=== PATIENT | female | born 1955 | race Caucasian/White ===

== ENCOUNTER → 2019-12-08 13:08 | Outpatient (BNVA) | payer MEDICAID, SELFPAY | PROVIDERS: PCP Family Medicine; Visit Provider Family Medicine | DX: Z95.2 Presence of prosthetic heart valve (principal); Z51.81 Encounter for therapeutic drug level monitoring; Z79.01 Long term (current) use of anticoagulants | CPT/HCPCS: 85610; 99211 ==

== ENCOUNTER → 2020-01-05 12:58 | Outpatient (BNVA) | payer MEDICAID, SELFPAY | PROVIDERS: PCP Family Medicine; Visit Provider Internal Medicine | DX: Z95.2 Presence of prosthetic heart valve (principal); Z51.81 Encounter for therapeutic drug level monitoring; Z79.01 Long term (current) use of anticoagulants | CPT/HCPCS: 85610; 99211 ==

== ENCOUNTER → 2020-01-19 13:00 | Outpatient (BNVA) | payer MEDICAID, SELFPAY | PROVIDERS: PCP Family Medicine; Visit Provider Internal Medicine | DX: Z95.2 Presence of prosthetic heart valve (principal); Z51.81 Encounter for therapeutic drug level monitoring; Z79.01 Long term (current) use of anticoagulants | CPT/HCPCS: 85610; 99211 ==

== ENCOUNTER → 2020-02-02 13:31 | Outpatient (BNVA) | payer MEDICAID, SELFPAY | PROVIDERS: PCP Family Medicine; Visit Provider Internal Medicine | DX: Z95.2 Presence of prosthetic heart valve (principal); Z51.81 Encounter for therapeutic drug level monitoring; Z79.01 Long term (current) use of anticoagulants | CPT/HCPCS: 85610; 99211 ==

== ENCOUNTER → 2020-02-09 13:10 | Outpatient (BNVA) | payer MEDICAID, SELFPAY | PROVIDERS: PCP Family Medicine; Visit Provider Internal Medicine | DX: Z95.2 Presence of prosthetic heart valve (principal); Z51.81 Encounter for therapeutic drug level monitoring; Z79.01 Long term (current) use of anticoagulants | CPT/HCPCS: 85610; 99211 ==

== ENCOUNTER → 2020-02-22 13:04 | Outpatient (BNVA) | payer MEDICAID, SELFPAY | PROVIDERS: PCP Family Medicine; Visit Provider Internal Medicine | DX: Z95.2 Presence of prosthetic heart valve (principal); Z51.81 Encounter for therapeutic drug level monitoring; Z79.01 Long term (current) use of anticoagulants | CPT/HCPCS: 85610; 99211 ==

== ENCOUNTER → 2020-02-29 13:06 | Outpatient (BNVA) | payer MEDICAID, SELFPAY | PROVIDERS: PCP Family Medicine; Visit Provider Internal Medicine | DX: Z95.2 Presence of prosthetic heart valve (principal); Z51.81 Encounter for therapeutic drug level monitoring; Z79.01 Long term (current) use of anticoagulants | CPT/HCPCS: 85610; 99211 ==

== ENCOUNTER → 2020-03-08 13:51 | Outpatient (BNVA) | payer MEDICAID, SELFPAY | PROVIDERS: PCP Family Medicine; Visit Provider Internal Medicine | DX: Z95.2 Presence of prosthetic heart valve (principal); Z79.01 Long term (current) use of anticoagulants; Z51.81 Encounter for therapeutic drug level monitoring | CPT/HCPCS: 85610; 99211 ==

== ENCOUNTER 2020-03-13 16:37 | Outpatient (REF) | payer MEDICAID, SELFPAY ==
--- NOTE | 2020-03-13 16:43 | MM_ITS ---
EXAMINATION: MM SCREENING DIGITAL BREAST TOMOSYNTHESIS, BILATERAL CLINICAL INFORMATION: Screening. Asymptomatic. The lifetime risk of breast cancer based on the Tyrer-Cuzick Model is 6%. COMPARISON: Mammography: 03/08/2019, 01/03/2018 TECHNIQUE: Digital breast tomosynthesis is performed in both the craniocaudal and mediolateral oblique views along with computer-aided detection (CAD). Synthesized 2D images are generated from the tomosynthesis. Additional left exaggerated CC view is provided. FINDINGS: The breasts are heterogeneously dense, which may obscure small masses (ACR BI-RADS breast composition Category c). There are no significant masses, abnormal calcifications, or other abnormalities. Oval nodule anterior 8:00 left breast is moderately decreased in size since 2018. Again, there are scattered coarse calcifications in each breast. The axilla and skin contours are unremarkable. MM/MM tomosynthesis screening BI IMPRESSION: There are no significant changes from prior study. ASSESSMENT: BI-RADS 2: Benign RECOMMENDATION: Routine annual mammography screening. This patient's information was entered into a reminder system with a target due date for their next mammogram.
== END 2020-03-13 16:38 | disposition home or self-care (01) ==
LOC: HO.MAMMO 16:37
PROVIDERS: PCP Family Medicine; Visit Provider Family Medicine
DX: Z12.31 Encounter for screening mammogram for malignant neoplasm of breast (principal)
CPT/HCPCS: 77063; 77067

== ENCOUNTER → 2020-03-22 13:06 | Outpatient (BNVA) | payer MEDICAID, SELFPAY | PROVIDERS: PCP Family Medicine; Visit Provider Internal Medicine | DX: Z95.2 Presence of prosthetic heart valve (principal); Z51.81 Encounter for therapeutic drug level monitoring; Z79.01 Long term (current) use of anticoagulants | CPT/HCPCS: 85610; 99211 ==

== ENCOUNTER → 2020-04-05 12:54 | Outpatient (BNVA) | payer MEDICAID, SELFPAY | PROVIDERS: PCP Family Medicine; Visit Provider Internal Medicine | DX: Z95.2 Presence of prosthetic heart valve (principal); Z51.81 Encounter for therapeutic drug level monitoring; Z79.01 Long term (current) use of anticoagulants | CPT/HCPCS: 85610; 99211 ==

== ENCOUNTER → 2020-04-12 13:02 | Outpatient (BNVA) | payer MEDICAID, SELFPAY | PROVIDERS: PCP Family Medicine; Visit Provider Internal Medicine | DX: Z95.2 Presence of prosthetic heart valve (principal); Z51.81 Encounter for therapeutic drug level monitoring; Z79.01 Long term (current) use of anticoagulants | CPT/HCPCS: 85610; 99211 ==

== ENCOUNTER → 2020-04-26 13:13 | Outpatient (BNVA) | payer MEDICAID, SELFPAY | PROVIDERS: PCP Family Medicine; Visit Provider Internal Medicine | DX: Z95.2 Presence of prosthetic heart valve (principal); Z51.81 Encounter for therapeutic drug level monitoring; Z79.01 Long term (current) use of anticoagulants | CPT/HCPCS: 85610; 99211 ==

== ENCOUNTER → 2020-05-03 14:18 | Outpatient (BNVA) | payer MEDICAID, SELFPAY | PROVIDERS: PCP Family Medicine; Visit Provider Internal Medicine | DX: Z95.2 Presence of prosthetic heart valve (principal); Z79.01 Long term (current) use of anticoagulants; Z51.81 Encounter for therapeutic drug level monitoring | CPT/HCPCS: 85610; 99211 ==

== ENCOUNTER → 2020-05-24 13:01 | Outpatient (BNVA) | payer MEDICAID, SELFPAY | PROVIDERS: PCP Family Medicine; Visit Provider Internal Medicine | DX: Z95.2 Presence of prosthetic heart valve (principal); Z51.81 Encounter for therapeutic drug level monitoring; Z79.01 Long term (current) use of anticoagulants | CPT/HCPCS: 85610; 99211 ==

== ENCOUNTER → 2020-06-14 13:06 | Outpatient (BNVA) | payer MEDICAID, SELFPAY | PROVIDERS: PCP Family Medicine; Visit Provider Internal Medicine | DX: Z95.2 Presence of prosthetic heart valve (principal); Z79.01 Long term (current) use of anticoagulants; Z51.81 Encounter for therapeutic drug level monitoring | CPT/HCPCS: 85610; 99211 ==

== ENCOUNTER → 2020-06-21 13:02 | Outpatient (BNVA) | payer MEDICAID, SELFPAY | PROVIDERS: PCP Family Medicine; Visit Provider Internal Medicine | DX: Z95.2 Presence of prosthetic heart valve (principal); Z79.01 Long term (current) use of anticoagulants; Z51.81 Encounter for therapeutic drug level monitoring | CPT/HCPCS: 85610; 99211 ==

== ENCOUNTER → 2020-07-12 13:07 | Outpatient (BNVA) | payer MEDICAID, SELFPAY | PROVIDERS: PCP Family Medicine; Visit Provider Internal Medicine | DX: Z95.2 Presence of prosthetic heart valve (principal); Z51.81 Encounter for therapeutic drug level monitoring; Z79.01 Long term (current) use of anticoagulants | CPT/HCPCS: 85610; 99211 ==

== ENCOUNTER → 2020-08-09 13:06 | Outpatient (BNVA) | payer MEDICAID, SELFPAY | PROVIDERS: PCP Family Medicine; Visit Provider Internal Medicine | DX: Z95.2 Presence of prosthetic heart valve (principal); Z51.81 Encounter for therapeutic drug level monitoring; Z79.01 Long term (current) use of anticoagulants | CPT/HCPCS: 85610; 99211 ==

== ENCOUNTER → 2020-08-27 13:24 | Outpatient (BNV) | payer MEDICAID, MEDICARE, OTHER, SELFPAY | PROVIDERS: PCP Family Medicine; Visit Provider Internal Medicine Medical Oncology | DX: N60.92 Unspecified benign mammary dysplasia of left breast (principal) | CPT/HCPCS: 99213 ==

== ENCOUNTER → 2020-09-06 13:03 | Outpatient (BNVA) | payer MEDICAID, SELFPAY | PROVIDERS: PCP Family Medicine; Visit Provider Internal Medicine | DX: Z95.2 Presence of prosthetic heart valve (principal); Z51.81 Encounter for therapeutic drug level monitoring; Z79.01 Long term (current) use of anticoagulants | CPT/HCPCS: 85610; 99211 ==

== ENCOUNTER → 2020-09-13 13:01 | Outpatient (BNVA) | payer MEDICAID, SELFPAY | PROVIDERS: PCP Family Medicine; Visit Provider Internal Medicine | DX: Z95.2 Presence of prosthetic heart valve (principal); Z51.81 Encounter for therapeutic drug level monitoring; Z79.01 Long term (current) use of anticoagulants | CPT/HCPCS: 85610; 99211 ==

== ENCOUNTER → 2020-09-20 13:05 | Outpatient (BNVA) | payer MEDICAID, SELFPAY | PROVIDERS: PCP Family Medicine; Visit Provider Internal Medicine | DX: Z95.2 Presence of prosthetic heart valve (principal); Z51.81 Encounter for therapeutic drug level monitoring; Z79.01 Long term (current) use of anticoagulants | CPT/HCPCS: 85610; 99211 ==

== ENCOUNTER → 2020-10-11 12:55 | Outpatient (BNVA) | payer MEDICAID, SELFPAY | PROVIDERS: PCP Family Medicine; Visit Provider Internal Medicine | DX: Z95.2 Presence of prosthetic heart valve (principal); Z79.01 Long term (current) use of anticoagulants; Z51.81 Encounter for therapeutic drug level monitoring | CPT/HCPCS: 85610; 99211 ==

== ENCOUNTER → 2020-10-25 12:58 | Outpatient (BNVA) | payer MEDICAID, SELFPAY | PROVIDERS: PCP Family Medicine; Visit Provider Internal Medicine | DX: Z95.2 Presence of prosthetic heart valve (principal); Z51.81 Encounter for therapeutic drug level monitoring; Z79.01 Long term (current) use of anticoagulants | CPT/HCPCS: 85610; 99211 ==

== ENCOUNTER → 2020-11-08 13:02 | Outpatient (BNVA) | payer MEDICAID, SELFPAY | PROVIDERS: PCP Family Medicine; Visit Provider Internal Medicine | DX: Z95.2 Presence of prosthetic heart valve (principal); Z51.81 Encounter for therapeutic drug level monitoring; Z79.01 Long term (current) use of anticoagulants | CPT/HCPCS: 85610; 99211 ==

== ENCOUNTER → 2020-11-29 13:04 | Outpatient (BNVA) | payer MEDICARE, MEDICAID, SELFPAY | PROVIDERS: PCP Family Medicine; Visit Provider Internal Medicine | DX: Z95.2 Presence of prosthetic heart valve (principal); Z51.81 Encounter for therapeutic drug level monitoring; Z79.01 Long term (current) use of anticoagulants | CPT/HCPCS: 85610; 99211 ==

== ENCOUNTER → 2020-12-20 13:01 | Outpatient (BNVA) | payer MEDICARE, MEDICAID, SELFPAY | PROVIDERS: PCP Family Medicine; Visit Provider Internal Medicine | DX: Z95.2 Presence of prosthetic heart valve (principal); Z51.81 Encounter for therapeutic drug level monitoring; Z79.01 Long term (current) use of anticoagulants | CPT/HCPCS: 85610; 99211 ==

== ENCOUNTER → 2021-01-10 13:06 | Outpatient (BNVA) | payer MEDICARE, MEDICAID, SELFPAY | PROVIDERS: PCP Family Medicine; Visit Provider Internal Medicine | DX: Z95.2 Presence of prosthetic heart valve (principal); Z51.81 Encounter for therapeutic drug level monitoring; Z79.01 Long term (current) use of anticoagulants | CPT/HCPCS: 85610 ==

== ENCOUNTER → 2021-01-30 13:28 | Outpatient (BNVA) | payer MEDICARE, MEDICAID, SELFPAY | PROVIDERS: PCP Family Medicine; Visit Provider Internal Medicine | DX: Z95.2 Presence of prosthetic heart valve (principal); Z51.81 Encounter for therapeutic drug level monitoring; Z79.01 Long term (current) use of anticoagulants | CPT/HCPCS: 85610; 99211 ==

== ENCOUNTER → 2021-02-14 13:02 | Outpatient (BNVA) | payer MEDICARE, MEDICAID, SELFPAY | PROVIDERS: PCP Family Medicine; Visit Provider Internal Medicine | DX: Z95.2 Presence of prosthetic heart valve (principal); Z51.81 Encounter for therapeutic drug level monitoring; Z79.01 Long term (current) use of anticoagulants | CPT/HCPCS: 85610; 99211 ==

== ENCOUNTER → 2021-03-07 12:49 | Outpatient (BNVA) | payer MEDICARE, MEDICAID, SELFPAY | PROVIDERS: PCP Family Medicine; Visit Provider Internal Medicine | DX: Z95.2 Presence of prosthetic heart valve (principal); Z51.81 Encounter for therapeutic drug level monitoring; Z79.01 Long term (current) use of anticoagulants | CPT/HCPCS: 85610; 99211 ==

== ENCOUNTER → 2021-03-14 13:02 | Outpatient (BNVA) | payer MEDICARE, MEDICAID, SELFPAY | PROVIDERS: PCP Family Medicine; Visit Provider Internal Medicine | DX: Z95.2 Presence of prosthetic heart valve (principal); Z51.81 Encounter for therapeutic drug level monitoring; Z79.01 Long term (current) use of anticoagulants | CPT/HCPCS: 85610; 99211 ==

== ENCOUNTER → 2021-03-19 14:53 | Outpatient (BNVA) | payer MEDICARE, MEDICAID, SELFPAY | PROVIDERS: PCP Family Medicine; Visit Provider Internal Medicine | DX: Z95.2 Presence of prosthetic heart valve (principal); Z51.81 Encounter for therapeutic drug level monitoring; Z79.01 Long term (current) use of anticoagulants | CPT/HCPCS: 85610; 99211 ==

== ENCOUNTER → 2021-03-28 13:02 | Outpatient (BNVA) | payer MEDICARE, MEDICAID, SELFPAY | PROVIDERS: PCP Family Medicine; Visit Provider Internal Medicine | DX: Z95.2 Presence of prosthetic heart valve (principal); Z51.81 Encounter for therapeutic drug level monitoring; Z79.01 Long term (current) use of anticoagulants | CPT/HCPCS: 85610; 99211 ==

== ENCOUNTER 2021-04-11 14:02 | Outpatient (REF) | payer MEDICARE, MEDICAID, SELFPAY ==
--- NOTE | ~2021-04-11 | MM_ITS ---
EXAMINATION: MM SCREENING DIGITAL BREAST TOMOSYNTHESIS, BILATERAL CLINICAL INFORMATION: Screening. Asymptomatic. The lifetime risk of breast cancer based on the Tyrer-Cuzick Model is 6%. COMPARISON: Mammography: 03/13/2020, 03/08/2019, 01/03/2018 TECHNIQUE: Digital breast tomosynthesis is performed in both the craniocaudal and mediolateral oblique views along with computer-aided detection (CAD). Synthesized 2D images are generated from the tomosynthesis. Additional left MLO view is provided. FINDINGS: There are scattered areas of fibroglandular density (ACR BI-RADS breast composition Category b). Parenchymal pattern is similar to prior studies. There is no developing density, interval significant mass, or interval architectural abnormality. Again, there are grouped coarse calcifications central right breast and lesser on the left. Surgical clips or wire central anterior left breast again noted. The axilla are unremarkable. MM/MM tomosynthesis screening BI IMPRESSION: No mammographic evidence of malignancy. ASSESSMENT: BI-RADS 2: Benign RECOMMENDATION: Routine annual mammography screening. This patient's information was entered into a reminder system with a target due date for their next mammogram.
== END 2021-04-11 14:03 | disposition home or self-care (01) ==
LOC: HO.MAMMO 14:02
PROVIDERS: Visit Provider Family Medicine
DX: Z12.31 Encounter for screening mammogram for malignant neoplasm of breast (principal); Z95.2 Presence of prosthetic heart valve; Z51.81 Encounter for therapeutic drug level monitoring; Z79.01 Long term (current) use of anticoagulants
CPT/HCPCS: 77063; 77067; 85610; 99211

== ENCOUNTER → 2021-05-02 13:03 | Outpatient (BNVA) | payer MEDICARE, MEDICAID, SELFPAY | PROVIDERS: PCP Family Medicine; Visit Provider Internal Medicine | DX: Z95.2 Presence of prosthetic heart valve (principal); Z51.81 Encounter for therapeutic drug level monitoring; Z79.01 Long term (current) use of anticoagulants | CPT/HCPCS: 85610; 99211 ==

== ENCOUNTER → 2021-05-23 13:02 | Outpatient (BNVA) | payer MEDICARE, MEDICAID, SELFPAY | PROVIDERS: PCP Family Medicine; Visit Provider Internal Medicine | DX: Z95.2 Presence of prosthetic heart valve (principal); Z51.81 Encounter for therapeutic drug level monitoring; Z79.01 Long term (current) use of anticoagulants | CPT/HCPCS: 85610; 99211 ==

== ENCOUNTER → 2021-06-18 13:32 | Outpatient (BNVA) | payer MEDICARE, MEDICAID, SELFPAY | PROVIDERS: PCP Family Medicine; Visit Provider Internal Medicine | DX: Z95.2 Presence of prosthetic heart valve (principal); Z79.01 Long term (current) use of anticoagulants; Z51.81 Encounter for therapeutic drug level monitoring | CPT/HCPCS: 85610; 99211 ==

== ENCOUNTER → 2021-07-18 13:08 | Outpatient (BNVA) | payer MEDICARE, MEDICAID, SELFPAY | PROVIDERS: PCP Family Medicine; Visit Provider Internal Medicine | DX: Z95.2 Presence of prosthetic heart valve (principal); Z79.01 Long term (current) use of anticoagulants; Z51.81 Encounter for therapeutic drug level monitoring | CPT/HCPCS: 85610; 99211 ==

== ENCOUNTER → 2021-08-15 12:59 | Outpatient (BNVA) | payer MEDICARE, MEDICAID, SELFPAY | PROVIDERS: PCP Family Medicine; Visit Provider Internal Medicine | DX: Z95.2 Presence of prosthetic heart valve (principal); Z79.01 Long term (current) use of anticoagulants; Z51.81 Encounter for therapeutic drug level monitoring | CPT/HCPCS: 85610; 99211 ==

== ENCOUNTER → 2021-09-12 13:03 | Outpatient (BNVA) | payer MEDICARE, MEDICAID, SELFPAY | PROVIDERS: PCP Family Medicine; Visit Provider Internal Medicine | DX: Z95.2 Presence of prosthetic heart valve (principal); Z79.01 Long term (current) use of anticoagulants; Z51.81 Encounter for therapeutic drug level monitoring | CPT/HCPCS: 85610; 99211 ==

== ENCOUNTER → 2021-10-10 13:04 | Outpatient (BNVA) | payer MEDICARE, MEDICAID, SELFPAY | PROVIDERS: PCP Family Medicine; Visit Provider Internal Medicine | DX: Z95.2 Presence of prosthetic heart valve (principal); Z79.01 Long term (current) use of anticoagulants; Z51.81 Encounter for therapeutic drug level monitoring | CPT/HCPCS: 85610; 99212 ==

== ENCOUNTER → 2021-10-13 13:09 | Outpatient (BNVA) | payer MEDICARE, MEDICAID, SELFPAY | PROVIDERS: PCP Family Medicine; Visit Provider Internal Medicine | DX: Z95.2 Presence of prosthetic heart valve (principal); Z79.01 Long term (current) use of anticoagulants; Z51.81 Encounter for therapeutic drug level monitoring | CPT/HCPCS: 85610; 99211 ==

== ENCOUNTER → 2021-10-31 13:04 | Outpatient (BNVA) | payer MEDICARE, MEDICAID, SELFPAY | PROVIDERS: PCP Family Medicine; Visit Provider Internal Medicine | DX: Z95.2 Presence of prosthetic heart valve (principal); Z79.01 Long term (current) use of anticoagulants; Z51.81 Encounter for therapeutic drug level monitoring | CPT/HCPCS: 85610; 99211 ==

== ENCOUNTER → 2021-11-21 13:06 | Outpatient (BNVA) | payer MEDICARE, MEDICAID, SELFPAY | PROVIDERS: PCP Family Medicine; Visit Provider Internal Medicine | DX: Z95.2 Presence of prosthetic heart valve (principal); Z79.01 Long term (current) use of anticoagulants; Z51.81 Encounter for therapeutic drug level monitoring | CPT/HCPCS: 85610; 99211 ==

== ENCOUNTER → 2021-12-19 13:02 | Outpatient (BNVA) | payer MEDICARE, MEDICAID, SELFPAY | PROVIDERS: PCP Family Medicine; Visit Provider Internal Medicine | DX: Z95.2 Presence of prosthetic heart valve (principal); Z79.01 Long term (current) use of anticoagulants; Z51.81 Encounter for therapeutic drug level monitoring | CPT/HCPCS: 85610; 99211 ==

== ENCOUNTER → 2021-12-26 13:03 | Outpatient (BNVA) | payer MEDICARE, MEDICAID, SELFPAY | PROVIDERS: PCP Family Medicine; Visit Provider Internal Medicine | DX: Z95.2 Presence of prosthetic heart valve (principal); Z51.81 Encounter for therapeutic drug level monitoring; Z79.01 Long term (current) use of anticoagulants | CPT/HCPCS: 85610; 99211 ==

== ENCOUNTER → 2022-01-07 13:07 | Outpatient (BNVA) | payer OTHER, SELFPAY | PROVIDERS: PCP Family Medicine; Visit Provider Internal Medicine | DX: Z95.2 Presence of prosthetic heart valve (principal); Z79.01 Long term (current) use of anticoagulants; Z51.81 Encounter for therapeutic drug level monitoring | CPT/HCPCS: 85610; 99211 ==

== ENCOUNTER → 2022-01-21 13:02 | Outpatient (BNVA) | payer OTHER, SELFPAY | PROVIDERS: PCP Family Medicine; Visit Provider Internal Medicine | DX: Z95.0 Presence of cardiac pacemaker (principal); Z79.01 Long term (current) use of anticoagulants; Z51.81 Encounter for therapeutic drug level monitoring | CPT/HCPCS: 85610; 99211 ==

== ENCOUNTER → 2022-02-06 13:00 | Outpatient (BNVA) | payer OTHER, SELFPAY | PROVIDERS: PCP Family Medicine; Visit Provider Internal Medicine | DX: Z95.2 Presence of prosthetic heart valve (principal); Z79.01 Long term (current) use of anticoagulants; Z51.81 Encounter for therapeutic drug level monitoring | CPT/HCPCS: 85610; 99211 ==

== ENCOUNTER → 2022-02-27 12:56 | Outpatient (BNVA) | payer OTHER, SELFPAY | PROVIDERS: PCP Family Medicine; Visit Provider Internal Medicine | DX: Z95.2 Presence of prosthetic heart valve (principal); Z79.01 Long term (current) use of anticoagulants; Z51.81 Encounter for therapeutic drug level monitoring | CPT/HCPCS: 85610; 99211 ==

== ENCOUNTER → 2022-03-27 13:04 | Outpatient (BNVA) | payer OTHER, SELFPAY | PROVIDERS: PCP Family Medicine; Visit Provider Internal Medicine | DX: Z95.2 Presence of prosthetic heart valve (principal); Z79.01 Long term (current) use of anticoagulants; Z51.81 Encounter for therapeutic drug level monitoring | CPT/HCPCS: 85610; 99211 ==

== ENCOUNTER → 2022-04-10 13:12 | Outpatient (BNVA) | payer OTHER, SELFPAY | PROVIDERS: PCP Family Medicine; Visit Provider Internal Medicine | DX: Z95.2 Presence of prosthetic heart valve (principal); Z79.01 Long term (current) use of anticoagulants; Z51.81 Encounter for therapeutic drug level monitoring | CPT/HCPCS: 85610; 99211 ==

== ENCOUNTER 2022-04-13 12:59 | Outpatient (REF) | payer OTHER, SELFPAY ==
--- NOTE | ~2022-04-13 | MM_ITS ---
EXAMINATION: MM SCREENING DIGITAL BREAST TOMOSYNTHESIS, BILATERAL CLINICAL INFORMATION: Screening. Asymptomatic. Remote excisional biopsy, 2006. The lifetime risk of breast cancer based on the Tyrer-Cuzick Model is 5%. COMPARISON: Mammography: 04/11/2021, 03/13/2020, 03/08/2019 TECHNIQUE: Digital breast tomosynthesis is performed in both the craniocaudal and mediolateral oblique views along with computer-aided detection (CAD). Synthesized 2D images are generated from the tomosynthesis. FINDINGS: There are scattered areas of fibroglandular density (ACR BI-RADS breast composition Category b). There are no significant masses, abnormal calcifications, or other abnormalities. Parenchymal pattern is similar to prior studies. There is no developing density or architectural abnormality. Grouped benign coarse calcifications again noted central 12:30 right breast. Minor stable scarring on left. The axilla and skin contours are unremarkable. No significant changes. MM/MM tomosynthesis screening BI IMPRESSION: No mammographic evidence of malignancy. ASSESSMENT: BI-RADS 2: Benign RECOMMENDATION: Routine annual mammography screening. This patient's information was entered into a reminder system with a target due date for their next mammogram.
== END 2022-04-13 13:00 | disposition home or self-care (01) ==
LOC: HO.MAMMO 12:59
PROVIDERS: PCP Family Medicine; Visit Provider Family Medicine
DX: Z12.31 Encounter for screening mammogram for malignant neoplasm of breast (principal)
CPT/HCPCS: 77063; 77067

== ENCOUNTER → 2022-05-08 13:04 | Outpatient (BNVA) | payer OTHER, SELFPAY | PROVIDERS: PCP Family Medicine; Visit Provider Internal Medicine | DX: Z95.2 Presence of prosthetic heart valve (principal); Z79.01 Long term (current) use of anticoagulants; Z51.81 Encounter for therapeutic drug level monitoring | CPT/HCPCS: 85610; 99211 ==

== ENCOUNTER → 2022-05-22 13:02 | Outpatient (BNVA) | payer OTHER, SELFPAY | PROVIDERS: PCP Family Medicine; Visit Provider Internal Medicine | DX: Z95.2 Presence of prosthetic heart valve (principal); Z79.01 Long term (current) use of anticoagulants; Z51.81 Encounter for therapeutic drug level monitoring | CPT/HCPCS: 85610; 99211 ==

== ENCOUNTER 2022-06-05 07:12 | Outpatient (REF) | payer OTHER, SELFPAY ==
[2022-06-05 07:26] LABS: MANUAL DIFF FLAG NO
[2022-06-05 07:50] LABS: Basophils Percent Auto 0.3 % (0-2); Eosinophils Absolute Auto 0.1 X10*3/uL (0.0-0.4); Eosinophils Percent Auto 1.2 % (0-4); Hematocrit 41.8 % (37.0-47.0); Imm Gran Abs Auto 0.05 X10*3/uL (0.00-0.03); Imm Gran Pct Auto 0.6 % (0.0-0.4); Lymphocytes Absolute Auto 2.4 X10*3/uL (1.2-4.9); Lymphocytes Percent Auto 26.9 % (20-40); Mean Corpuscular HGB Conc 31.1 g/dl (31.0-35.0); Mean Corpuscular Hemoglobin 27.2 pg (27.0-33.0); Mean Corpuscular Volume 87.4 fL (80.0-98.0); Mean Platelet Volume 10.6 fL (9.4-12.3); Monocytes Absolute Auto 0.7 X10*3/uL (0.1-1.2); Monocytes Percent Auto 7.3 % (2-11); Neutrophils Absolute Auto 5.8 x10*3/uL (2.0-8.3); Neutrophils Percent Auto 63.7 % (45-73); Platelet Count 217 X10*3/uL (160-400); Red Blood Count 4.78 X10*6/uL (4.20-5.50); Red Cell Distribution Width 14.6 % (11.0-16.0); White Blood Count 9.1 X10*3/uL (4.8-10.8)
[2022-06-05 08:05] LABS: Estimated Average Glucose 154 mg/dL
[2022-06-05 08:27] LABS: Anion Gap 14 (12-20); Blood Urea Nitrogen 21 mg/dL (9-16); Calcium 9.3 mg/dL (8.4-10.2); Carbon Dioxide 22 mmol/L (22-29); Chloride 112 mmol/L (96-108); Cholesterol 132 mg/dL; Estimated Glomerular Filt Rate > 60; HDL Cholesterol 29 mg/dL; Iron 37 mcg/dL (30-160); LDL Cholesterol Calculated 58 mg/dl; Percent Iron Saturation 12 % (15-50); Potassium 4.6 mmol/L (3.3-5.1); Sodium 143 mmol/L (135-145); Total Iron Binding Capacity 304 mcg/dL (228-428); Triglycerides 225 mg/dL; Unsaturated Iron Binding 267 ug/dL
[2022-06-05 08:43] LABS: Vitamin D 25-OH Total 41.7 ng/mL (>30)
[2022-06-05 08:51] LABS: Appearance Urine Clear; Color Urine Yellow; Glucose Urine UA Negative (Negative); Leukocyte Esterase Urine Trace (Negative); Nitrite Urine Negative (Negative); PH 5.5 (5.0-9.0); UMIC TRIGGER UA YES; Urine Blood Negative (Negative); Urine Ketones Negative (Negative); Urine Protein 100 (2+) mg/dL (Neg-Trace)
[2022-06-05 09:00] LABS: Bacteria Urine None Seen (None Seen); Hyaline Casts Urine 0-2 /LPF (0-2); RBC Urine 0-2 /HPF (0-2); Squamous Epithelial Cell Urine 0-2 /HPF (0-2); WBC Urine 0-5 /HPF (0-5)
[2022-06-05 09:36] LABS: Creatinine Urine 49.14 mg/dL; Total Protein Urine Random 59 mg/dL (<12)
[2022-06-08 21:49] LABS: Calcium (PTHI) 9.5 mg/dL (8.6-10.4); PTHI 21 pg/mL (16-77)
== END 2022-06-05 07:13 | disposition home or self-care (01) ==
LOC: HO.LAB 07:12
PROVIDERS: PCP Family Medicine; Visit Provider Physician Assistant
DX: E11.22 Type 2 diabetes mellitus with diabetic chronic kidney disease (principal); I12.9 Hypertensive chronic kidney disease with stage 1 through stage 4 chronic kidney disease, or unspecified chronic kidney disease; N18.31 Chronic kidney disease, stage 3a; R80.9 Proteinuria, unspecified
CPT/HCPCS: 36415; 80051; 80061; 81001; 82306; 82310; 82565; 83036; 83540; 83970; 84156; 84520; 85025

== ENCOUNTER → 2022-06-12 13:13 | Outpatient (BNVA) | payer OTHER, SELFPAY | PROVIDERS: PCP Family Medicine; Visit Provider Internal Medicine | DX: Z95.2 Presence of prosthetic heart valve (principal); Z51.81 Encounter for therapeutic drug level monitoring; Z79.01 Long term (current) use of anticoagulants | CPT/HCPCS: 85610; 99211 ==

== ENCOUNTER → 2022-06-19 13:07 | Outpatient (BNVA) | payer OTHER, SELFPAY | PROVIDERS: PCP Family Medicine; Visit Provider Internal Medicine | DX: Z95.2 Presence of prosthetic heart valve (principal); Z79.01 Long term (current) use of anticoagulants; Z51.81 Encounter for therapeutic drug level monitoring | CPT/HCPCS: 85610; 99211 ==

== ENCOUNTER → 2022-07-03 13:02 | Outpatient (BNVA) | payer OTHER, SELFPAY | PROVIDERS: PCP Family Medicine; Visit Provider Internal Medicine | DX: Z95.2 Presence of prosthetic heart valve (principal); Z79.01 Long term (current) use of anticoagulants; Z51.81 Encounter for therapeutic drug level monitoring | CPT/HCPCS: 85610; 99211 ==

== ENCOUNTER → 2022-07-17 13:05 | Outpatient (BNVA) | payer OTHER, SELFPAY | PROVIDERS: PCP Family Medicine; Visit Provider Internal Medicine | DX: Z95.2 Presence of prosthetic heart valve (principal); Z79.01 Long term (current) use of anticoagulants; Z51.81 Encounter for therapeutic drug level monitoring | CPT/HCPCS: 85610; 99211 ==

== ENCOUNTER → 2022-08-07 12:59 | Outpatient (BNVA) | payer OTHER, SELFPAY | PROVIDERS: PCP Family Medicine; Visit Provider Internal Medicine | DX: Z95.2 Presence of prosthetic heart valve (principal); Z79.01 Long term (current) use of anticoagulants; Z51.81 Encounter for therapeutic drug level monitoring | CPT/HCPCS: 85610; 99211 ==

== ENCOUNTER → 2022-09-04 13:00 | Outpatient (BNVA) | payer OTHER, SELFPAY | PROVIDERS: PCP Family Medicine; Visit Provider Internal Medicine | DX: Z95.2 Presence of prosthetic heart valve (principal); Z79.01 Long term (current) use of anticoagulants; Z51.81 Encounter for therapeutic drug level monitoring | CPT/HCPCS: 85610; 99211 ==

== ENCOUNTER 2022-09-18 13:27 | Outpatient (AMB) | payer OTHER, SELFPAY ==
--- NOTE | 2022-09-18 13:41 | MHC.OFFVISCO ---
Intake Intake Visit Reasons: Anticoagulation Allergies lisinopril [LISINOPRIL] Allergy (Intermediate, Verified 09/18/22 13:29) rash/cough, palpitations Medication List - Last Reconciled 09/18/22 by Adelina Suero RN amlodipine 5 mg PO DAILY aspirin 81 mg PO DAILY atorvastatin 80 mg PO DAILY blood sugar diagnostic (FreeStyle Lite Strips) As directed blood-glucose meter (FreeStyle [place] Lite kit) As directed cholecalciferol (vitamin D3) (Vitamin D3) 25 mcg PO DAILY empagliflozin (Jardiance) 10 mg PO DAILY ergocalciferol (vitamin D2) 1,250 mcg PO QWEEK ferrous sulfate 325 mg PO DAILY lancets (TRUEplus Lancets) As directed metformin ER 500 mg PO QPM metoprolol tartrate 1 tab PO TID telmisartan (Micardis) 80 mg PO DAILY warfarin 5 mg See Protocol PO DAILY warfarin 2.5 mg See Protocol PO DIRECTED Nursing Note Amb to [facility] accomp by daughter and grand daughter feeling well Medications and supplements reviewed, pt has some of her meds with her, micardis increased to 80mg (no warfarin interaction) No changes in health, diet, medications, or supplements Denies any unusual signs and symptoms of bruising, bleeding Denies any new Chest pain, SOB, or clotting INR: 2.9 now in therapeutic range Nutritional guidance given: balance greens and reds in diet, be consistent Dose: continue usual dosing; 5mg x 3 days and 2.5mg x 4 days F/U INR: 3 weeks Patient verbalizes understanding of instructions given with accurate read back/ teach back of dosing Anti-Coag Initial Assessment Social Hx Patient Tobacco Use Status: Never used Tobacco alcohol intake: former Alcohol intake frequency: does not drink Coding Level of Care Code Est Patient Level 1 Diagnoses Current use of anticoagulant therapy Z79.01 Time Spent (min) 15 Assessment & Plan Assessment & Plan (1) Current use of anticoagulant therapy: Code(s): Z79.01 - prison (current) 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
[2022-09-18 13:47] LABS: ~PT, ~INR - Anti Coag Clinic 2.9 (0.9-1.1)
== END 2022-09-18 13:45 | disposition home or self-care (01) ==
LOC: HO.ACS 13:27
PROVIDERS: PCP Family Medicine; Visit Provider Internal Medicine
DX: Z79.01 Long term (current) use of anticoagulants (principal)

== ENCOUNTER → 2022-09-18 13:27 | Outpatient (BNVA) | payer OTHER, SELFPAY | PROVIDERS: PCP Family Medicine; Visit Provider Internal Medicine | DX: Z95.2 Presence of prosthetic heart valve (principal); Z79.01 Long term (current) use of anticoagulants; Z51.81 Encounter for therapeutic drug level monitoring | CPT/HCPCS: 85610; 99211 ==

== ENCOUNTER 2022-10-01 14:26 | Outpatient (REF) | payer OTHER, SELFPAY ==
[2022-10-01 17:16] LABS: Vitamin B12 350 pg/mL (200-900)
== END 2022-10-01 14:27 | disposition home or self-care (01) ==
LOC: HO.HHCL 14:26
PROVIDERS: Visit Provider Family Medicine
DX: E11.9 Type 2 diabetes mellitus without complications (principal)
CPT/HCPCS: 36415; 82607

== ENCOUNTER 2022-10-09 13:17 | Outpatient (AMB) | payer OTHER, SELFPAY ==
[2022-10-09 13:26] LABS: Prothrombin Time Whole Bld POC 36.7 sec (11.1-13.5); ~PT, ~INR - Anti Coag Clinic 3.1 (0.9-1.1)
--- NOTE | 2022-10-09 13:27 | MHC.OFFVISCO ---
Intake Intake Visit Reasons: Anticoagulation Allergies lisinopril [LISINOPRIL] Allergy (Intermediate, Verified 10/09/22 13:21) rash/cough, palpitations Medication List - Last Reconciled 10/09/22 by Kianna Aviles RN amlodipine 5 mg PO DAILY aspirin 81 mg PO DAILY atorvastatin 80 mg PO DAILY blood sugar diagnostic (FreeStyle Lite Strips) As directed blood-glucose meter (FreeStyle [place] Lite kit) As directed cholecalciferol (vitamin D3) (Vitamin D3) 25 mcg PO DAILY empagliflozin (Jardiance) 10 mg PO DAILY ergocalciferol (vitamin D2) 1,250 mcg PO QWEEK ferrous sulfate 325 mg PO DAILY lancets (TRUEplus Lancets) As directed metformin ER 500 mg PO QPM metoprolol tartrate 1 tab PO TID telmisartan (Micardis) 80 mg PO DAILY warfarin 5 mg See Protocol PO DAILY warfarin 2.5 mg See Protocol PO DIRECTED Nursing Note INR: 3.1 in therapeutic range Medications and supplements reviewed No changes in health, diet, medications, or supplements, Denies any signs and symptoms of bleeding or bruising or clotting. Bleeding, bruising, clotting discussed Nutritional guidance given Dose: 5MG X 3 DAYS/ 2.5MG X 4 DAYS F/U INR: 3 WEEKS PER PT REQUEST Patient verbalizes understanding of instructions given Anti-Coag Initial Assessment Social Hx Patient Tobacco Use Status: Never used Tobacco alcohol intake: former Alcohol intake frequency: does not drink Coding Level of Care Code Est Patient Level 1 Diagnoses Current use of anticoagulant therapy Z79.01 Assessment & Plan Assessment & Plan (1) Current use of anticoagulant therapy: Code(s): Z79.01 - [facility] (current) 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
== END 2022-10-09 13:30 | disposition home or self-care (01) ==
LOC: HO.ACS 13:17
PROVIDERS: PCP Family Medicine; Visit Provider Internal Medicine
DX: Z79.01 Long term (current) use of anticoagulants (principal)

== ENCOUNTER → 2022-10-09 13:17 | Outpatient (BNVA) | payer OTHER, SELFPAY | PROVIDERS: PCP Family Medicine; Visit Provider Internal Medicine | DX: Z95.2 Presence of prosthetic heart valve (principal); Z79.01 Long term (current) use of anticoagulants; Z51.81 Encounter for therapeutic drug level monitoring | CPT/HCPCS: 85610; 99211 ==

== ENCOUNTER 2022-10-30 13:05 | Outpatient (AMB) | payer OTHER, SELFPAY ==
[2022-10-30 13:13] LABS: Prothrombin Time Whole Bld POC 40.8 sec (11.1-13.5); ~PT, ~INR - Anti Coag Clinic 3.4 (0.9-1.1)
--- NOTE | 2022-10-30 13:21 | MHC.OFFVISCO ---
Intake Intake Visit Reasons: Anticoagulation Allergies lisinopril [LISINOPRIL] Allergy (Intermediate, Verified 10/30/22 13:08) rash/cough, palpitations Medication List - Last Reconciled 10/30/22 by Kianna Aviles RN amlodipine 5 mg PO DAILY aspirin 81 mg PO DAILY atorvastatin 80 mg PO DAILY blood sugar diagnostic (FreeStyle Lite Strips) As directed blood-glucose meter (FreeStyle [place] Lite kit) As directed cholecalciferol (vitamin D3) (Vitamin D3) 25 mcg PO DAILY empagliflozin (Jardiance) 10 mg PO DAILY ergocalciferol (vitamin D2) 1,250 mcg PO QWEEK ferrous sulfate 325 mg PO DAILY lancets (TRUEplus Lancets) As directed metformin ER 500 mg PO QPM metoprolol tartrate 1 tab PO TID telmisartan (Micardis) 80 mg PO DAILY warfarin 5 mg See Protocol PO DAILY warfarin 2.5 mg See Protocol PO DIRECTED Nursing Note INR: 3.4 in therapeutic range Medications and supplements reviewed No changes in health, diet, medications, or supplements, Denies any signs and symptoms of bleeding or bruising or clotting. 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
== END 2022-10-30 13:30 | disposition home or self-care (01) ==
LOC: HO.ACS 13:05
PROVIDERS: PCP Family Medicine; Visit Provider Internal Medicine
DX: Z79.01 Long term (current) use of anticoagulants (principal)

== ENCOUNTER → 2022-10-30 13:05 | Outpatient (BNVA) | payer OTHER, SELFPAY | PROVIDERS: PCP Family Medicine; Visit Provider Internal Medicine | DX: Z95.2 Presence of prosthetic heart valve (principal); Z79.01 Long term (current) use of anticoagulants; Z51.81 Encounter for therapeutic drug level monitoring | CPT/HCPCS: 85610; 99211 ==

== ENCOUNTER 2022-11-12 08:43 | Outpatient (REF) | payer OTHER, SELFPAY ==
[2022-11-12 13:22] LABS: Vitamin B12 399 pg/mL (200-900)
== END 2022-11-12 08:44 | disposition home or self-care (01) ==
LOC: HO.HHCL 08:43
PROVIDERS: Visit Provider Family Medicine
DX: E11.9 Type 2 diabetes mellitus without complications (principal)
CPT/HCPCS: 36415; 82607

== ENCOUNTER 2022-11-27 12:58 | Outpatient (AMB) | payer OTHER, SELFPAY ==
[2022-11-27 13:06] LABS: Prothrombin Time Whole Bld POC 44.4 sec (11.1-13.5); ~PT, ~INR - Anti Coag Clinic 3.7 (0.9-1.1)
--- NOTE | 2022-11-27 13:26 | MHC.OFFVISCO ---
Intake Intake Visit Reasons: Anticoagulation Allergies lisinopril [LISINOPRIL] Allergy (Intermediate, Verified 11/27/22 13:01) rash/cough, palpitations Medication List - Last Reconciled 11/27/22 by Rhona Hidalgo RN amlodipine 5 mg PO DAILY aspirin 81 mg PO DAILY atorvastatin 80 mg PO BEDTIME blood sugar diagnostic (FreeStyle Lite Strips) As directed blood-glucose meter (FreeStyle [place] Lite kit) As directed cholecalciferol (vitamin D3) (Vitamin D3) 25 mcg PO DAILY empagliflozin (Jardiance) 10 mg PO DAILY ergocalciferol (vitamin D2) 1,250 mcg PO QWEEK ferrous sulfate 325 mg PO DAILY lancets (TRUEplus Lancets) As directed metformin ER 500 mg PO QPM metoprolol tartrate 1 tab PO BID telmisartan (Micardis) 80 mg PO DAILY warfarin 5 mg See Protocol PO DAILY warfarin 2.5 mg See Protocol PO DIRECTED Nursing Note NO CP,SOB,DIET/MED CHANGES,FALLS OR SX OF BLEEDING. DECREASE DOSE SLIGHTLY TODAY THEN RESUME USUAL DOSE AN FOLLOW-UP IN 4 WEEKS. GOOD UNDERSTANDING OF DOSING INSTR. 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
== END 2022-11-27 13:28 | disposition home or self-care (01) ==
LOC: HO.ACS 12:58
PROVIDERS: PCP Family Medicine; Visit Provider Internal Medicine
DX: Z79.01 Long term (current) use of anticoagulants (principal)

== ENCOUNTER → 2022-11-27 12:58 | Outpatient (BNVA) | payer OTHER, SELFPAY | PROVIDERS: PCP Family Medicine; Visit Provider Internal Medicine | DX: Z95.2 Presence of prosthetic heart valve (principal); Z79.01 Long term (current) use of anticoagulants; Z51.81 Encounter for therapeutic drug level monitoring | CPT/HCPCS: 85610; 99211 ==

== ENCOUNTER 2022-12-23 14:00 | Outpatient (RCR) | payer OTHER, SELFPAY ==
[2022-12-02 13:05] VITALS: BP 135/62; PULSE 65
== END 2023-02-02 16:32 | disposition home or self-care (01) ==
LOC: HO.PT 14:00
PROVIDERS: PCP Family Medicine; Visit Provider Family Medicine
DX: M54.50 Low back pain, unspecified (principal)
CPT/HCPCS: 97110; 97161

== ENCOUNTER 2022-12-25 12:58 | Outpatient (AMB) | payer OTHER, SELFPAY ==
--- NOTE | 2022-12-25 13:06 | MHC.OFFVISCO ---
Intake Intake Visit Reasons: Anticoagulation Allergies lisinopril [LISINOPRIL] Allergy (Intermediate, Verified 12/25/22 13:00) rash/cough, palpitations Medication List - Last Reconciled 12/25/22 by Kianna Aviles RN amlodipine 5 mg PO DAILY aspirin 81 mg PO DAILY atorvastatin 80 mg PO BEDTIME blood sugar diagnostic (FreeStyle Lite Strips) As directed blood-glucose meter (FreeStyle [place] Lite kit) As directed cholecalciferol (vitamin D3) (Vitamin D3) 25 mcg PO DAILY empagliflozin (Jardiance) 10 mg PO DAILY ergocalciferol (vitamin D2) 1,250 mcg PO QWEEK ferrous sulfate 325 mg PO DAILY lancets (TRUEplus Lancets) As directed metformin ER 500 mg PO QPM metoprolol tartrate 1 tab PO BID telmisartan (Micardis) 80 mg PO DAILY warfarin 5 mg See Protocol PO DAILY warfarin 2.5 mg See Protocol PO DIRECTED Nursing Note INR: 3.0 in therapeutic range Medications and supplements reviewed No changes in health, diet, medications, or supplements, Denies any signs and symptoms of bleeding or bruising or clotting. Bleeding, bruising, clotting discussed Nutritional guidance given Dose: 5mg x 3 days/ 2.5mg x 4 days F/U INR: 4 weeks Patient verbalizes understanding of instructions given Anti-Coag Initial Assessment Social Hx Patient Tobacco Use Status: Never used Tobacco alcohol intake: former Alcohol intake frequency: does not drink Coding Level of Care Code Est Patient Level 1 Diagnoses Current use of anticoagulant therapy Z79.01 Assessment & Plan Assessment & Plan (1) Current use of anticoagulant therapy: Code(s): Z79.01 - [facility] (current) 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
== END 2022-12-25 13:11 | disposition home or self-care (01) ==
LOC: HO.ACS 12:58
PROVIDERS: PCP Family Medicine; Visit Provider Internal Medicine
DX: Z79.01 Long term (current) use of anticoagulants (principal)

== ENCOUNTER → 2022-12-25 12:58 | Outpatient (BNVA) | payer OTHER, SELFPAY | PROVIDERS: PCP Family Medicine; Visit Provider Internal Medicine | DX: Z95.2 Presence of prosthetic heart valve (principal); Z79.01 Long term (current) use of anticoagulants; Z51.81 Encounter for therapeutic drug level monitoring | CPT/HCPCS: 85610; 99211 ==

== ENCOUNTER 2023-01-29 13:01 | Outpatient (AMB) | payer OTHER, SELFPAY ==
[2023-01-29 13:08] LABS: Prothrombin Time Whole Bld POC 41.1 sec (11.1-13.5); ~PT, ~INR - Anti Coag Clinic 3.4 (0.9-1.1)
--- NOTE | 2023-01-29 13:11 | MHC.OFFVISCO ---
Intake Intake Visit Reasons: Anticoagulation Allergies lisinopril [LISINOPRIL] Allergy (Intermediate, Verified 01/29/23 13:02) rash/cough, palpitations Medication List - Last Reconciled 01/29/23 by Kianna Aviles RN amlodipine 5 mg PO DAILY aspirin 81 mg PO DAILY atorvastatin 80 mg PO BEDTIME blood sugar diagnostic (FreeStyle Lite Strips) As directed blood-glucose meter (FreeStyle [place] Lite kit) As directed cholecalciferol (vitamin D3) (Vitamin D3) 25 mcg PO DAILY empagliflozin (Jardiance) 10 mg PO DAILY ergocalciferol (vitamin D2) 1,250 mcg PO QWEEK ferrous sulfate 325 mg PO DAILY lancets (TRUEplus Lancets) As directed metformin ER 500 mg PO QPM metoprolol tartrate 1 tab PO BID telmisartan (Micardis) 80 mg PO DAILY warfarin 5 mg See Protocol PO DAILY warfarin 2.5 mg See Protocol PO DIRECTED Nursing Note INR: 3.3 in therapeutic range Medications and supplements reviewed No changes in health, diet, medications, or supplements, Denies any signs and symptoms of bleeding or bruising or clotting. Bleeding, bruising, clotting discussed Nutritional guidance given- zachery mayorga today Dose: keep same dose 2.5mg x 4 days / 5mg x 3 days F/U INR: 3 weeks with spouse Patient verbalizes understanding of instructions given Anti-Coag Initial Assessment Social Hx Patient Tobacco Use Status: Never used Tobacco alcohol intake: former Alcohol intake frequency: does not drink Coding Level of Care Code Est Patient Level 1 Diagnoses Current use of anticoagulant therapy Z79.01 Results AMB INR Fingerstick AMB INR Fingerstick 3.3 Last Edit by Kianna Aviles RN on 01/29/23 13:08 manual entry Assessment & Plan Assessment & Plan (1) Current use of anticoagulant therapy: Code(s): 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
== END 2023-01-29 13:13 | disposition home or self-care (01) ==
LOC: HO.ACS 13:01
PROVIDERS: PCP Family Medicine; Visit Provider Internal Medicine
DX: Z79.01 Long term (current) use of anticoagulants (principal)

== ENCOUNTER → 2023-01-29 13:01 | Outpatient (BNVA) | payer OTHER, SELFPAY | PROVIDERS: PCP Family Medicine; Visit Provider Internal Medicine | DX: Z95.2 Presence of prosthetic heart valve (principal); Z79.01 Long term (current) use of anticoagulants; Z51.81 Encounter for therapeutic drug level monitoring | CPT/HCPCS: 85610; 99211 ==

== ENCOUNTER 2023-02-19 13:04 | Outpatient (AMB) | payer OTHER, SELFPAY ==
[2023-02-19 13:12] LABS: Prothrombin Time Whole Bld POC 49.2 sec (11.1-13.5); ~PT, ~INR - Anti Coag Clinic 4.1 (0.9-1.1)
--- NOTE | 2023-02-19 13:35 | MHC.OFFVISCO ---
Intake Intake Visit Reasons: Anticoagulation Allergies lisinopril [LISINOPRIL] Allergy (Intermediate, Verified 02/19/23 13:05) rash/cough, palpitations Medication List - Last Reconciled 02/19/23 by Kianna Aviles RN amlodipine 5 mg PO DAILY aspirin 81 mg PO DAILY atorvastatin 80 mg PO BEDTIME blood sugar diagnostic (FreeStyle Lite Strips) As directed blood-glucose meter (FreeStyle [place] Lite kit) As directed cholecalciferol (vitamin D3) (Vitamin D3) 25 mcg PO DAILY empagliflozin (Jardiance) 10 mg PO DAILY ergocalciferol (vitamin D2) 1,250 mcg PO QWEEK ferrous sulfate 325 mg PO DAILY lancets (TRUEplus Lancets) As directed metformin ER 500 mg PO QPM metoprolol tartrate 1 tab PO BID telmisartan (Micardis) 80 mg PO DAILY warfarin 5 mg See Protocol PO DAILY warfarin 2.5 mg See Protocol PO DIRECTED Nursing Note INR 4.1? out of therapeutic range Medications and supplements reviewed Patient status: had a cold about 1 week ago - took telnol for a few days and had a decreased appetite Medications or supplements: took telno for a few days for the cold Diet: better now Denies any signs and symptoms of bleeding or clotting or unusual bruising Bleeding, bruising, clotting discussed Nutritional guidance given:resume weekly greens Dose: hold today then resume ususal dose 2.5mg x 3 days/ 5mg x 4 days F/U INR Date : 2 weeks with spouse ?? Patient verbalizing understanding of instructions given. 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
== END 2023-02-19 13:38 | disposition home or self-care (01) ==
LOC: HO.ACS 13:04
PROVIDERS: PCP Family Medicine; Visit Provider Internal Medicine
DX: Z79.01 Long term (current) use of anticoagulants (principal)

== ENCOUNTER → 2023-02-19 13:04 | Outpatient (BNVA) | payer OTHER, SELFPAY | PROVIDERS: PCP Family Medicine; Visit Provider Internal Medicine | DX: Z95.2 Presence of prosthetic heart valve (principal); Z51.81 Encounter for therapeutic drug level monitoring; Z79.01 Long term (current) use of anticoagulants | CPT/HCPCS: 85610; 99211 ==

== ENCOUNTER 2023-03-05 12:58 | Outpatient (AMB) | payer OTHER, SELFPAY ==
--- NOTE | 2023-03-05 13:25 | MHC.OFFVISCO ---
Intake Intake Visit Reasons: Anticoagulation Allergies lisinopril [LISINOPRIL] Allergy (Intermediate, Verified 03/05/23 13:21) rash/cough, palpitations Medication List - Last Reconciled 03/05/23 by Angelique Koroma RN amlodipine 5 mg PO DAILY aspirin 81 mg PO DAILY atorvastatin 80 mg PO BEDTIME blood sugar diagnostic (FreeStyle Lite Strips) As directed blood-glucose meter (FreeStyle [place] Lite kit) As directed cholecalciferol (vitamin D3) (Vitamin D3) 25 mcg PO DAILY empagliflozin (Jardiance) 10 mg PO DAILY ergocalciferol (vitamin D2) 1,250 mcg PO QWEEK ferrous sulfate 325 mg PO DAILY lancets (TRUEplus Lancets) As directed metformin ER 500 mg PO QPM metoprolol tartrate 1 tab PO BID telmisartan (Micardis) 80 mg PO DAILY warfarin 5 mg See Protocol PO DAILY warfarin 2.5 mg See Protocol PO DIRECTED Nursing Note INR: 3.2- in therapeutic range of 2.5-3.5 Medications and supplements reviewed No changes in health, diet, medications, or supplements, Denies any signs and symptoms of bleeding or bruising or clotting. Bleeding, bruising, clotting discussed Nutritional guidance given Dose: 5mg x 3, 2.5mg x 4 F/U INR: 2 weeks Patient verbalizes understanding of instructions given Anti-Coag Initial Assessment Social Hx Patient Tobacco Use Status: Never used Tobacco alcohol intake: former Alcohol intake frequency: does not drink Coding Level of Care Code Est Patient Level 1 Diagnoses Current use of anticoagulant therapy Z79.01 Results AMB INR Fingerstick AMB INR Fingerstick 3.2 Last Edit by Angelique Koroma RN on 03/05/23 13:27 Assessment & Plan Assessment & Plan (1) Current use of anticoagulant therapy: Code(s): 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
== END 2023-03-05 13:44 | disposition home or self-care (01) ==
LOC: HO.ACS 12:58
PROVIDERS: PCP Family Medicine; Visit Provider Internal Medicine
DX: Z79.01 Long term (current) use of anticoagulants (principal)

== ENCOUNTER → 2023-03-05 12:58 | Outpatient (BNVA) | payer OTHER, SELFPAY | PROVIDERS: PCP Family Medicine; Visit Provider Internal Medicine | DX: Z95.2 Presence of prosthetic heart valve (principal); Z51.81 Encounter for therapeutic drug level monitoring; Z79.01 Long term (current) use of anticoagulants | CPT/HCPCS: 85610; 99211 ==

== ENCOUNTER 2023-03-11 08:28 | Outpatient (REF) | payer OTHER, SELFPAY ==
[2023-03-11 08:47] LABS: MANUAL DIFF FLAG NO
[2023-03-11 09:02] LABS: Basophils Absolute Auto 0.1 X10*3/uL (0.0-0.2); Basophils Percent Auto 0.8 % (0-2); Eosinophils Absolute Auto 0.1 X10*3/uL (0.0-0.4); Eosinophils Percent Auto 1.6 % (0-4); Hematocrit 46.6 % (37.0-47.0); Hemoglobin 14.3 g/dl (12.0-16.0); Imm Gran Abs Auto 0.11 X10*3/uL (0.00-0.03); Imm Gran Pct Auto 1.3 % (0.0-0.4); Lymphocytes Absolute Auto 2.2 X10*3/uL (1.2-4.9); Lymphocytes Percent Auto 26.1 % (20-40); Mean Corpuscular HGB Conc 30.7 g/dl (31.0-35.0); Mean Corpuscular Hemoglobin 27.3 pg (27.0-33.0); Mean Corpuscular Volume 89.1 fL (80.0-98.0); Mean Platelet Volume 10.4 fL (9.4-12.3); Monocytes Absolute Auto 0.6 X10*3/uL (0.1-1.2); Monocytes Percent Auto 7.1 % (2-11); Neutrophils Absolute Auto 5.2 x10*3/uL (2.0-8.3); Neutrophils Percent Auto 63.1 % (45-73); Platelet Count 205 X10*3/uL (160-400); Red Blood Count 5.23 X10*6/uL (4.20-5.50); Red Cell Distribution Width 14.7 % (11.0-16.0); White Blood Count 8.3 X10*3/uL (4.8-10.8)
[2023-03-11 09:04] LABS: Appearance Urine Clear; Color Urine Yellow; Glucose Urine UA >=1000 mg/dL (Negative); Leukocyte Esterase Urine Negative (Negative); Nitrite Urine Negative (Negative); PH 5.5 (5.0-9.0); Specific Gravity - Urine 1.015 (1.005-1.025); UMIC TRIGGER UA YES; Urine Blood Negative (Negative); Urine Ketones Negative (Negative); Urine Protein 30 (1+) mg/dL (Neg-Trace)
[2023-03-11 09:09] LABS: Bacteria Urine None Seen (None Seen); RBC Urine 0-2 /HPF (0-2); Squamous Epithelial Cell Urine 0-2 /HPF (0-2); WBC Urine 0-5 /HPF (0-5)
[2023-03-11 09:11] LABS: Estimated Average Glucose 140 mg/dL; Hemoglobin A1c % 6.5 % (<6.0)
[2023-03-11 09:27] LABS: Creatinine Urine 55.23 mg/dL; Protein/Creatinine Ratio, Ur 0.81 (<0.2); Total Protein Urine Random 45 mg/dL (<12)
[2023-03-11 09:30] LABS: Parathyroid Hormone Intact 19.7 pg/mL (8.7-77.1)
[2023-03-11 09:33] LABS: Anion Gap 13 (12-20); Blood Urea Nitrogen 19 mg/dL (9-16); Calcium 10.1 mg/dL (8.4-10.2); Carbon Dioxide 23 mmol/L (22-29); Chloride 112 mmol/L (96-108); Cholesterol 177 mg/dL (<200); Estimated Glomerular Filt Rate > 60; HDL Cholesterol 34 mg/dL (>40); Iron 63 mcg/dL (30-160); LDL Cholesterol Calculated 76 mg/dL (<100); Percent Iron Saturation 21 % (15-50); Potassium 4.9 mmol/L (3.3-5.1); Sodium 143 mmol/L (135-145); Total Iron Binding Capacity 294 mcg/dL (228-428); Triglycerides 339 mg/dL (<150); Unsaturated Iron Binding 231 ug/dL
[2023-03-11 09:49] LABS: Vitamin D 25-OH Total 37.1 ng/mL (>30)
== END 2023-03-11 08:29 | disposition home or self-care (01) ==
LOC: HO.LAB 08:28
PROVIDERS: PCP Family Medicine; Visit Provider Physician Assistant
DX: N18.31 Chronic kidney disease, stage 3a (principal); I10 Essential (primary) hypertension; E11.9 Type 2 diabetes mellitus without complications; R80.9 Proteinuria, unspecified; E61.1 Iron deficiency
CPT/HCPCS: 36415; 80051; 80061; 81001; 81003; 82306; 82310; 82565; 82570; 83036; 83540; 83970; 84156; 84520; 85025

== ENCOUNTER 2023-03-26 13:04 | Outpatient (AMB) | payer OTHER, SELFPAY ==
[2023-03-26 13:25] LABS: Prothrombin Time Whole Bld POC 36.7 sec (11.1-13.5); ~PT, ~INR - Anti Coag Clinic 3.1 (0.9-1.1)
--- NOTE | 2023-03-26 14:14 | MHC.OFFVISCO ---
Intake Intake Visit Reasons: Anticoagulation Allergies lisinopril [LISINOPRIL] Allergy (Intermediate, Verified 03/26/23 13:17) rash/cough, palpitations Medication List - Last Reconciled 03/26/23 by Kianna Aviles RN amlodipine 5 mg PO DAILY amoxicillin 1,000 mg PO BID aspirin 81 mg PO DAILY atorvastatin 80 mg PO BEDTIME blood sugar diagnostic (FreeStyle Lite Strips) As directed blood-glucose meter (FreeStyle [place] Lite kit) As directed cholecalciferol (vitamin D3) (Vitamin D3) 25 mcg PO DAILY empagliflozin (Jardiance) 10 mg PO DAILY ergocalciferol (vitamin D2) 1,250 mcg PO QWEEK ferrous sulfate 325 mg PO DAILY lancets (TRUEplus Lancets) As directed metformin ER 500 mg PO QPM metoprolol tartrate 1 tab PO BID telmisartan (Micardis) 80 mg PO DAILY warfarin 5 mg See Protocol PO DAILY warfarin 2.5 mg See Protocol PO DIRECTED Nursing Note INR: 3.1 in therapeutic range to have dental extraction near future per dentist Dr Woodward INR range 1.8-2.2 for the extraction - pt waiting medical clearance to call with date call to Cardiology Dr Gregorio spoke w/ Manjit GORDON with pt information and inquire for for lovenox bridge Medications and supplements reviewed No changes in health, diet, medications, or supplements, Denies any signs and symptoms of bleeding or bruising or clotting. 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
== END 2023-03-26 14:21 | disposition home or self-care (01) ==
LOC: HO.ACS 13:04
PROVIDERS: PCP Family Medicine; Visit Provider Internal Medicine
DX: Z79.01 Long term (current) use of anticoagulants (principal)

== ENCOUNTER → 2023-03-26 13:04 | Outpatient (BNVA) | payer OTHER, SELFPAY | PROVIDERS: PCP Family Medicine; Visit Provider Internal Medicine | DX: Z95.2 Presence of prosthetic heart valve (principal); Z79.01 Long term (current) use of anticoagulants; Z51.81 Encounter for therapeutic drug level monitoring | CPT/HCPCS: 85610; 99211 ==

== ENCOUNTER 2023-04-15 12:38 | Outpatient (REF) | payer OTHER, SELFPAY ==
--- NOTE | ~2023-04-15 | MM_ITS ---
EXAMINATION: MM SCREENING DIGITAL BREAST TOMOSYNTHESIS, BILATERAL CLINICAL INFORMATION: Screening. Asymptomatic. COMPARISON: Mammography: This study is compared with prior exams dating back to 2018. TECHNIQUE: Digital breast tomosynthesis is performed in both the craniocaudal and mediolateral oblique views along with computer-aided detection (CAD). Synthesized 2D images are generated from the tomosynthesis. FINDINGS: There are scattered areas of fibroglandular density (ACR BI-RADS breast composition Category b). There are no significant masses, abnormal calcifications, or other abnormalities. There are coarse calcifications in the superior aspect of the right breast. There are 2 tissue markers in the left breast from prior percutaneous biopsy. There are architectural changes in the upper outer quadrant of the left breast from prior surgery for benign disease. MM/MM tomosynthesis screening BI IMPRESSION: No mammographic evidence of malignancy. ASSESSMENT: BI-RADS BI-RADS 2 - Benign Findings RECOMMENDATION: Routine annual mammography screening. 1 year F/U This examination should not preclude the clinical evaluation of a suspicious palpable abnormality. This patient's information was entered into a reminder system with a target due date for their next mammogram.
--- NOTE | ~2023-04-15 | MM_ITS ---
EXAMINATION: BONE DENSITOMETRY CLINICAL INDICATION: Osteopenia. COMPARISON: Previous BD dated 12/15/2016 and baseline BD dated 01/15/2009. TECHNIQUE: Using a invi DXA System (software version: 13.1) manufactured by [employer], dual-energy x-ray absorptiometry was performed of the lumbar spine and left hip. The images are of good technical quality. Summary results are attached. FINDINGS: LEFT FEMUR, NECK: Current: BMD 0.794 g/cm2, Z-score -0.1, T-score -1.8, osteopenia. Prior: BMD 0.829 g/cm2. Baseline: BMD 0.852 g/cm2. LEFT FEMUR, TOTAL: Current: BMD 0.825 g/cm2, Z-score -0.1, T-score -1.4, osteopenia, 1.4% decrease from previous, 2.6% decrease from baseline (<5% change is not significant). Prior: BMD 0.837 g/cm2. Baseline: BMD 0.847 g/cm2. AP SPINE L1-L4: There is scoliosis present. Current: BMD 0.934 g/cm2, Z-score -0.3, T-score -2.0, osteopenia, 4.6% increase from previous, 8.5% decrease from baseline (<5% change is not significant). Prior: BMD 0.893 g/cm2. Baseline: BMD 1.021 g/cm2. IDENTIFIED RISK FACTORS: Menopause. HISTORY OF FRACTURE: None listed. MEDICATIONS: Vitamin D. MM/XR DEXA axial skeleton IMPRESSION: 1. DIAGNOSIS: Osteopenia based on the lowest T-score value of -2.0 in the lumbar spine applying World Health Organization criteria. 2. 10-YEAR FRACTURE RISK PREDICTION, FRAX: Major osteoporotic fracture (clinical spine, forearm, hip or shoulder) 5.7%. Hip fracture 0.8%. 3. Treatment Recommendations: NOF guidelines recommend consideration for treatment in postmenopausal women and men age 50 and older presenting with the following: -A hip or vertebral (clinical or morphometric) fracture. -T-score less than or equal to -2.5 at the femoral neck or spine after appropriate evaluation to exclude secondary causes. -Low bone mass at the hip or spine and a 10-year fracture probability by FRAX of greater than or equal to 3% for hip fracture or greater than or equal to 20% for major osteoporotic fracture based on the [place] adapted WHO algorithm. 4. Other Recommendations: All treatment decisions require clinical judgment and consideration of individual patient factors, including patient preferences, comorbidities, previous drug use, risk factors not captured in the FRAX model (e.g. frailty, falls, vitamin D deficiency, increased bone turnover, interval significant decline in bone density) and possible under or overestimation of fracture risk by FRAX. Additional medical evaluation for secondary cause of low bone mineral density may be appropriate. FUTURE SCAN RECOMMENDATION: People with diagnosed cases of osteoporosis or at high risk for fracture should have regular bone mineral density tests. For patients eligible for Medicare, routine testing is allowed once every 2 years. The testing frequency can be increased to one year for patients who have rapidly progressing disease, those who are receiving or discontinuing medical therapy to restore bone mass, or have additional risk factors.
== END 2023-04-15 12:39 | disposition home or self-care (01) ==
LOC: HO.MAMMO 12:38
PROVIDERS: PCP Family Medicine; Visit Provider Internal Medicine Medical Oncology
DX: Z12.31 Encounter for screening mammogram for malignant neoplasm of breast (principal); Z13.820 Encounter for screening for osteoporosis; M85.80 Other specified disorders of bone density and structure, unspecified site; Z78.0 Asymptomatic menopausal state
CPT/HCPCS: 77063; 77067; 77080

== ENCOUNTER → 2023-04-15 13:30 | Outpatient (BNV) | payer OTHER, SELFPAY | PROVIDERS: PCP Family Medicine; Visit Provider Radiology Diagnostic Radiology | DX: Z12.31 Encounter for screening mammogram for malignant neoplasm of breast (principal) | CPT/HCPCS: 77063; 77067 ==

== ENCOUNTER → 2023-04-16 13:03 | Outpatient (BNVA) | payer OTHER, SELFPAY | PROVIDERS: PCP Family Medicine; Visit Provider Internal Medicine | DX: Z95.2 Presence of prosthetic heart valve (principal); Z79.01 Long term (current) use of anticoagulants; Z51.81 Encounter for therapeutic drug level monitoring | CPT/HCPCS: 85610; 99211 ==

== ENCOUNTER 2023-05-14 13:01 | Outpatient (AMB) | payer OTHER, SELFPAY ==
[2023-05-14 13:23] LABS: Prothrombin Time Whole Bld POC 48.1 sec (11.1-13.5)
--- NOTE | 2023-05-14 13:33 | MHC.OFFVISCO ---
Intake Intake Visit Reasons: Anticoagulation Allergies lisinopril [LISINOPRIL] Allergy (Intermediate, Verified 04/16/23 13:17) rash/cough, palpitations Nursing Note INR: 4.0 OUT OF therapeutic range Medications and supplements reviewed No changes in health, diet, medications, or supplements, Denies any signs and symptoms of bleeding or bruising or clotting. Bleeding, bruising, clotting discussed Nutritional guidance given - REVIEW FOOD LIST WEEKLY, EAT GREENS TODAY, Dose: HOLD TODAY THEN RESUME USUAL DOSE 5MG X 3 DAYS/ 2.5MG X 4 DAYS F/U INR: 2 WEEKS THEN RECHECK SAME DAY SPOUSE 06/11/23 patient verbalizes understanding of instructions given Anti-Coag Initial Assessment Social Hx Patient Tobacco Use Status: Never used Tobacco alcohol intake: former Alcohol intake frequency: does not drink Coding Level of Care Code Est Patient Level 1 Diagnoses Current use of anticoagulant therapy Z79.01 Assessment & Plan Assessment & Plan (1) Current use of anticoagulant therapy: Code(s): Z79.01 - 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
== END 2023-05-14 13:36 | disposition home or self-care (01) ==
LOC: HO.ACS 13:01
PROVIDERS: PCP Family Medicine; Visit Provider Internal Medicine
DX: Z79.01 Long term (current) use of anticoagulants (principal)

== ENCOUNTER → 2023-05-14 13:01 | Outpatient (BNVA) | payer OTHER, SELFPAY | PROVIDERS: PCP Family Medicine; Visit Provider Internal Medicine | DX: Z95.2 Presence of prosthetic heart valve (principal); Z79.01 Long term (current) use of anticoagulants; Z51.81 Encounter for therapeutic drug level monitoring | CPT/HCPCS: 85610; 99211 ==

== ENCOUNTER 2023-05-28 11:15 | Outpatient (AMB) | payer OTHER, SELFPAY ==
--- NOTE | 2023-05-28 11:19 | MHC.OFFVISCO ---
Intake Intake Visit Reasons: Anticoagulation Allergies lisinopril [LISINOPRIL] Allergy (Intermediate, Verified 05/28/23 11:18) rash/cough, palpitations Medication List - Last Reconciled 05/28/23 by Kianna Aviles RN amlodipine 5 mg PO DAILY amoxicillin 1,000 mg PO BID aspirin 81 mg PO DAILY atorvastatin 80 mg PO BEDTIME blood sugar diagnostic (FreeStyle Lite Strips) As directed blood-glucose meter (FreeStyle [place] Lite kit) As directed cholecalciferol (vitamin D3) (Vitamin D3) 25 mcg PO DAILY empagliflozin (Jardiance) 10 mg PO DAILY ergocalciferol (vitamin D2) 1,250 mcg PO QWEEK ferrous sulfate 325 mg PO DAILY lancets (TRUEplus Lancets) As directed metformin ER 500 mg PO QPM metoprolol tartrate 1 tab PO BID telmisartan (Micardis) 80 mg PO DAILY warfarin 5 mg See Protocol PO DAILY warfarin 2.5 mg See Protocol PO DIRECTED Nursing Note INR: 3.4 in therapeutic range Medications and supplements reviewed No changes in health, diet, medications, or supplements, Denies any signs and symptoms of bleeding or bruising or clotting. Bleeding, bruising, clotting discussed Nutritional guidance given - KEEP EATING A MIX OF FRUITS AND VEGETABLES, KEEP UP WEEKLY GREENS Dose: 5MG X 3 DAYS, 2.5MG X 4 DAYS, IF INR ELELVATED NEXT VISIT THEN DECREASE WEEKLY DOSE TO 5MG X 2 DAYS F/U INR: 2WEEKS WITH SPOUSE Patient verbalizes understanding of instructions given Anti-Coag Initial Assessment Social Hx Patient Tobacco Use Status: Never used Tobacco alcohol intake: former Alcohol intake frequency: does not drink Coding Level of Care Code Est Patient Level 1 Diagnoses Current use of anticoagulant therapy Z79.01 Results AMB INR Fingerstick AMB INR Fingerstick 3.4 Last Edit by Kianna Aviles RN on 05/28/23 11:31 MNAUAL ENTRY DUE LACK OF INTERFACING Assessment & Plan Assessment & Plan (1) Current use of anticoagulant therapy: 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
[2023-05-28 11:24] LABS: Prothrombin Time Whole Bld POC 40.6 sec (11.1-13.5); ~PT, ~INR - Anti Coag Clinic 3.4 (0.9-1.1)
== END 2023-05-28 11:33 | disposition home or self-care (01) ==
LOC: HO.ACS 11:15
PROVIDERS: PCP Family Medicine; Visit Provider Internal Medicine
DX: Z79.01 Long term (current) use of anticoagulants (principal)

== ENCOUNTER → 2023-05-28 11:15 | Outpatient (BNVA) | payer OTHER, SELFPAY | PROVIDERS: PCP Family Medicine; Visit Provider Internal Medicine | DX: Z95.2 Presence of prosthetic heart valve (principal); Z79.01 Long term (current) use of anticoagulants; Z51.81 Encounter for therapeutic drug level monitoring | CPT/HCPCS: 85610; 99211 ==

== ENCOUNTER 2023-06-11 13:03 | Outpatient (AMB) | payer OTHER, SELFPAY ==
[2023-06-11 13:20] LABS: Prothrombin Time Whole Bld POC 42.8 sec (11.1-13.5); ~PT, ~INR - Anti Coag Clinic 3.6 (0.9-1.1)
--- NOTE | 2023-06-11 13:30 | MHC.OFFVISCO ---
Intake Intake Visit Reasons: Anticoagulation Allergies lisinopril [LISINOPRIL] Allergy (Intermediate, Verified 06/11/23 13:16) rash/cough, palpitations Medication List - Last Reconciled 06/11/23 by Kianna Aviles RN amlodipine 5 mg PO DAILY amoxicillin 1,000 mg PO BID aspirin 81 mg PO DAILY atorvastatin 80 mg PO BEDTIME blood sugar diagnostic (FreeStyle Lite Strips) As directed blood-glucose meter (FreeStyle [place] Lite kit) As directed cholecalciferol (vitamin D3) (Vitamin D3) 25 mcg PO DAILY empagliflozin (Jardiance) 10 mg PO DAILY ergocalciferol (vitamin D2) 1,250 mcg PO QWEEK ferrous sulfate 325 mg PO DAILY lancets (TRUEplus Lancets) As directed metformin ER 500 mg PO QPM metoprolol tartrate 1 tab PO BID telmisartan (Micardis) 80 mg PO DAILY warfarin 5 mg See Protocol PO DAILY warfarin 2.5 mg See Protocol PO DIRECTED Nursing Note INR: 3.6 ALMOST in therapeutic range Medications and supplements reviewed PERHAPS DIET CHANGES OVER No changes in health, medications, or supplements, Denies any signs and symptoms of bleeding or bruising or clotting. 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
== END 2023-06-11 13:32 | disposition home or self-care (01) ==
LOC: HO.ACS 13:03
PROVIDERS: PCP Family Medicine; Visit Provider Internal Medicine
DX: Z79.01 Long term (current) use of anticoagulants (principal)

== ENCOUNTER → 2023-06-11 13:03 | Outpatient (BNVA) | payer OTHER, SELFPAY | PROVIDERS: PCP Family Medicine; Visit Provider Internal Medicine | DX: Z95.2 Presence of prosthetic heart valve (principal); Z79.01 Long term (current) use of anticoagulants; Z51.81 Encounter for therapeutic drug level monitoring | CPT/HCPCS: 85610; 99211 ==

== ENCOUNTER 2023-06-25 13:00 | Outpatient (AMB) | payer OTHER, SELFPAY ==
[2023-06-25 13:23] LABS: Prothrombin Time Whole Bld POC 47.4 sec (11.1-13.5); ~PT, ~INR - Anti Coag Clinic 3.9 (0.9-1.1)
--- NOTE | 2023-06-25 13:54 | MHC.OFFVISCO ---
Intake Intake Visit Reasons: Anticoagulation Allergies lisinopril [LISINOPRIL] Allergy (Intermediate, Verified 06/25/23 13:18) rash/cough, palpitations Medication List - Last Reconciled 06/25/23 by Kianna Aviles RN amlodipine 5 mg PO DAILY amoxicillin 1,000 mg PO BID aspirin 81 mg PO DAILY atorvastatin 80 mg PO BEDTIME blood sugar diagnostic (FreeStyle Lite Strips) As directed blood-glucose meter (FreeStyle [place] Lite kit) As directed cholecalciferol (vitamin D3) (Vitamin D3) 25 mcg PO DAILY empagliflozin (Jardiance) 10 mg PO DAILY ergocalciferol (vitamin D2) 1,250 mcg PO QWEEK ferrous sulfate 325 mg PO DAILY lancets (TRUEplus Lancets) As directed metformin ER 500 mg PO QPM metoprolol tartrate 1 tab PO BID telmisartan (Micardis) 80 mg PO DAILY warfarin 5 mg See Protocol PO DAILY warfarin 2.5 mg See Protocol PO DIRECTED Nursing Note INR 3.9 out of therapeutic range Medications and supplements reviewed Patient status: no changes per pt - INR still above range 2.5-3.5 Medications or supplements: no changes Diet: good - has been eating greens Denies any signs and symptoms of bleeding or clotting or unusual bruising Bleeding, bruising, clotting discussed Nutritional guidance given Dose: decrease 5mg x 2 days/ 2.5mg x 5 days due to over range INRs F/U INR Date: 2 weeks Patient verbalizing understanding of instructions given. Anti-Coag Initial Assessment Social Hx Patient Tobacco Use Status: Never used Tobacco alcohol intake: former Alcohol intake frequency: does not drink Coding Level of Care Code Est Patient Level 1 Diagnoses Current use of anticoagulant therapy Z79.01 Results AMB INR Fingerstick AMB INR Fingerstick 3.9 Last Edit by Kianna Aviles RN on 06/25/23 13:33 manual entry x 2 delayed interfacing INR today 06/25/23 3.9! Assessment & Plan Assessment & Plan (1) Current use of anticoagulant therapy: Code(s): Z79.01 - [facility] (current) 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
== END 2023-06-25 13:56 | disposition home or self-care (01) ==
LOC: HO.ACS 13:00
PROVIDERS: PCP Family Medicine; Visit Provider Internal Medicine
DX: Z79.01 Long term (current) use of anticoagulants (principal)

== ENCOUNTER → 2023-06-25 13:00 | Outpatient (BNVA) | payer OTHER, SELFPAY | PROVIDERS: PCP Family Medicine; Visit Provider Internal Medicine | DX: Z95.2 Presence of prosthetic heart valve (principal); Z51.81 Encounter for therapeutic drug level monitoring; Z79.01 Long term (current) use of anticoagulants | CPT/HCPCS: 85610; 99211 ==

== ENCOUNTER 2023-07-09 13:18 | Outpatient (AMB) | payer OTHER, SELFPAY ==
[2023-07-09 13:33] LABS: ~PT, ~INR - Anti Coag Clinic 3.1 (0.9-1.1)
--- NOTE | 2023-07-09 13:37 | MHC.OFFVISCO ---
Intake Intake Visit Reasons: Anticoagulation Allergies lisinopril [LISINOPRIL] Allergy (Intermediate, Verified 07/09/23 13:27) rash/cough, palpitations Medication List - Last Reconciled 07/09/23 by Kianna Aviles RN amlodipine 5 mg PO DAILY amoxicillin 1,000 mg PO BID aspirin 81 mg PO DAILY atorvastatin 80 mg PO BEDTIME blood sugar diagnostic (FreeStyle Lite Strips) As directed blood-glucose meter (FreeStyle [place] Lite kit) As directed cholecalciferol (vitamin D3) (Vitamin D3) 25 mcg PO DAILY empagliflozin (Jardiance) 10 mg PO DAILY ergocalciferol (vitamin D2) 1,250 mcg PO QWEEK ferrous sulfate 325 mg PO DAILY lancets (TRUEplus Lancets) As directed metformin ER 500 mg PO QPM metoprolol tartrate 1 tab PO BID telmisartan (Micardis) 80 mg PO DAILY warfarin 5 mg See Protocol PO DAILY warfarin 2.5 mg See Protocol PO DIRECTED Nursing Note INR: 3.1 in therapeutic range Medications and supplements reviewed No changes in health, diet, medications, or supplements, Denies any signs and symptoms of bleeding or bruising or clotting. Bleeding, bruising, clotting discussed Nutritional guidance given - Review food list weekly, eat a mix of fruits and vegetables Dose: keep same dose 5mg x 2 days/2.5mg x 5 days F/U INR: 3 weeks Patient verbalizes understanding of instructions given Anti-Coag Initial Assessment Social Hx Patient Tobacco Use Status: Never used Tobacco alcohol intake: former Alcohol intake frequency: does not drink Coding Level of Care Code Est Patient Level 1 Diagnoses Current use of anticoagulant therapy Z79.01 Assessment & Plan Assessment & Plan (1) Current use of anticoagulant therapy: Code(s): Z79.01 - alf (current) 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
== END 2023-07-09 13:39 | disposition home or self-care (01) ==
LOC: HO.ACS 13:18
PROVIDERS: PCP Family Medicine; Visit Provider Internal Medicine
DX: Z79.01 Long term (current) use of anticoagulants (principal)

== ENCOUNTER → 2023-07-09 13:18 | Outpatient (BNVA) | payer OTHER, SELFPAY | PROVIDERS: PCP Family Medicine; Visit Provider Internal Medicine | DX: Z95.2 Presence of prosthetic heart valve (principal); Z51.81 Encounter for therapeutic drug level monitoring; Z79.01 Long term (current) use of anticoagulants | CPT/HCPCS: 85610; 99211 ==

== ENCOUNTER 2023-07-30 08:14 | Outpatient (REF) | payer OTHER, SELFPAY ==
[2023-07-30 11:43] LABS: Alanine Aminotransferase 22 U/L (0-31); Albumin Level 3.8 g/dL (3.5-5.0); Alkaline Phosphatase 88 U/L (39-117); Anion Gap 14 (12-20); Aspartate Amino Transferase 20 U/L (5-31); Bilirubin Direct 0.1 mg/dL (0.0-0.5); Bilirubin Total 0.3 mg/dL (0.0-1.0); Blood Urea Nitrogen 15 mg/dL (9-16); Calcium 9.4 mg/dL (8.4-10.2); Carbon Dioxide 21 mmol/L (22-29); Chloride 113 mmol/L (96-108); Cholesterol 154 mg/dL (<200); Estimated Glomerular Filt Rate > 60; Glucose Random 115 mg/dL (60-115); HDL Cholesterol 37 mg/dL (>40); LDL Cholesterol Calculated 70 mg/dL (<100); Potassium 4.4 mmol/L (3.3-5.1); Sodium 144 mmol/L (135-145); Total Protein 7.1 g/dL (6.5-8.0); Triglycerides 239 mg/dL (<150)
== END 2023-07-30 08:15 | disposition home or self-care (01) ==
LOC: HO.HHCL 08:14
PROVIDERS: Visit Provider Family Medicine
DX: Z95.2 Presence of prosthetic heart valve (principal); Z51.81 Encounter for therapeutic drug level monitoring; Z79.01 Long term (current) use of anticoagulants; E11.22 Type 2 diabetes mellitus with diabetic chronic kidney disease; I12.9 Hypertensive chronic kidney disease with stage 1 through stage 4 chronic kidney disease, or unspecified chronic kidney disease; N18.9 Chronic kidney disease, unspecified
CPT/HCPCS: 36415; 80048; 80061; 80076; 85610; 99211

== ENCOUNTER 2023-07-30 13:02 | Outpatient (AMB) | payer OTHER, SELFPAY ==
[2023-07-30 13:11] LABS: Prothrombin Time Whole Bld POC 32.7 sec (11.1-13.5); ~PT, ~INR - Anti Coag Clinic 2.7 (0.9-1.1)
--- NOTE | 2023-07-30 13:16 | MHC.OFFVISCO ---
Intake Intake Visit Reasons: Anticoagulation Allergies lisinopril [LISINOPRIL] Allergy (Intermediate, Verified 07/30/23 13:05) rash/cough, palpitations Medication List - Last Reconciled 07/30/23 by Kianna Aviles RN amlodipine 5 mg PO DAILY amoxicillin 1,000 mg PO BID aspirin 81 mg PO DAILY atorvastatin 80 mg PO BEDTIME blood sugar diagnostic (FreeStyle Lite Strips) As directed blood-glucose meter (FreeStyle [place] Lite kit) As directed cholecalciferol (vitamin D3) (Vitamin D3) 25 mcg PO DAILY empagliflozin (Jardiance) 10 mg PO DAILY ergocalciferol (vitamin D2) 1,250 mcg PO QWEEK ferrous sulfate 325 mg PO DAILY lancets (TRUEplus Lancets) As directed metformin ER 500 mg PO QPM metoprolol tartrate 1 tab PO BID telmisartan (Micardis) 80 mg PO DAILY warfarin 5 mg See Protocol PO DAILY warfarin 2.5 mg See Protocol PO DIRECTED Nursing Note INR: 2.7 in therapeutic range Medications and supplements reviewed No changes in health, diet, medications, or supplements, Denies any signs and symptoms of bleeding or bruising or clotting. Bleeding, bruising, clotting discussed Nutritional guidance given Dose: keep same 5mg x 2 days/ 2.5mg x 5 days F/U INR: 3 weeks Patient verbalizes understanding of instructions given Anti-Coag Initial Assessment Social Hx Patient Tobacco Use Status: Never used Tobacco alcohol intake: former Alcohol intake frequency: does not drink Coding Level of Care Code Est Patient Level 1 Diagnoses Current use of anticoagulant therapy Z79.01 Results AMB INR Fingerstick AMB INR Fingerstick 2.7 Last Edit by Kianna Aviles RN on 07/30/23 13:16 manual entry because not interfacing Assessment & Plan Assessment & Plan (1) Current use of anticoagulant therapy: Code(s): Z79.01 - intermediate (current) 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
== END 2023-07-30 13:17 | disposition home or self-care (01) ==
LOC: HO.ACS 13:02
PROVIDERS: PCP Family Medicine; Visit Provider Internal Medicine
DX: Z79.01 Long term (current) use of anticoagulants (principal)

== ENCOUNTER 2023-08-20 13:05 | Outpatient (AMB) | payer OTHER, SELFPAY ==
[2023-08-20 13:21] LABS: Prothrombin Time Whole Bld POC 32.8 sec (11.1-13.5); ~PT, ~INR - Anti Coag Clinic 2.7 (0.9-1.1)
--- NOTE | 2023-08-20 13:24 | MHC.OFFVISCO ---
Intake Intake Visit Reasons: Anticoagulation Allergies lisinopril [LISINOPRIL] Allergy (Intermediate, Verified 08/20/23 13:16) rash/cough, palpitations Medication List - Last Reconciled 08/20/23 by Kianna Aviles RN amlodipine 5 mg PO DAILY amoxicillin 1,000 mg PO BID aspirin 81 mg PO DAILY atorvastatin 80 mg PO BEDTIME blood sugar diagnostic (FreeStyle Lite Strips) As directed blood-glucose meter (FreeStyle [place] Lite kit) As directed cholecalciferol (vitamin D3) (Vitamin D3) 25 mcg PO DAILY empagliflozin (Jardiance) 10 mg PO DAILY ergocalciferol (vitamin D2) 1,250 mcg PO QWEEK ferrous sulfate 325 mg PO DAILY lancets (TRUEplus Lancets) As directed metformin ER 500 mg PO QPM metoprolol tartrate 1 tab PO BID telmisartan (Micardis) 80 mg PO DAILY warfarin 5 mg See Protocol PO DAILY warfarin 2.5 mg See Protocol PO DIRECTED Nursing Note INR: 2.7 in therapeutic range Medications and supplements reviewed No changes in health, diet, medications, or supplements, Denies any signs and symptoms of bleeding or bruising or clotting. Bleeding, bruising, clotting discussed Nutritional guidance given Dose: 5mg x 2 days/ 2.5mg x 5 days F/U INR: 4 weeks Patient verbalizes understanding of instructions given Anti-Coag Initial Assessment Social Hx Patient Tobacco Use Status: Never used Tobacco alcohol intake: former Alcohol intake frequency: does not drink Coding Level of Care Code Est Patient Level 1 Diagnoses Current use of anticoagulant therapy Z79.01 Results AMB INR Fingerstick AMB INR Fingerstick 2.7 Last Edit by Kianna Aviles RN on 08/20/23 13:23 manual entry Assessment & Plan Assessment & Plan (1) Current use of anticoagulant therapy: 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
== END 2023-08-20 13:26 | disposition home or self-care (01) ==
LOC: HO.ACS 13:05
PROVIDERS: PCP Family Medicine; Visit Provider Internal Medicine
DX: Z79.01 Long term (current) use of anticoagulants (principal)

== ENCOUNTER → 2023-08-20 13:05 | Outpatient (BNVA) | payer OTHER, SELFPAY | PROVIDERS: PCP Family Medicine; Visit Provider Internal Medicine | DX: Z95.2 Presence of prosthetic heart valve (principal); Z79.01 Long term (current) use of anticoagulants; Z51.81 Encounter for therapeutic drug level monitoring | CPT/HCPCS: 85610; 99211 ==

== ENCOUNTER 2023-09-17 14:09 | Outpatient (AMB) | payer OTHER, SELFPAY ==
[2023-09-17 14:22] LABS: Prothrombin Time Whole Bld POC 38.8 sec (11.1-13.5); ~PT, ~INR - Anti Coag Clinic 3.2 (0.9-1.1)
--- NOTE | 2023-09-17 14:26 | MHC.OFFVISCO ---
Intake Intake Visit Reasons: Anticoagulation Allergies lisinopril [LISINOPRIL] Allergy (Intermediate, Verified 09/17/23 14:09) rash/cough, palpitations Medication List - Last Reconciled 09/17/23 by Kianna Aviles RN amlodipine 5 mg PO DAILY amoxicillin 1,000 mg PO BID aspirin 81 mg PO DAILY atorvastatin 80 mg PO BEDTIME blood sugar diagnostic (FreeStyle Lite Strips) As directed blood-glucose meter (FreeStyle [place] Lite kit) As directed cholecalciferol (vitamin D3) (Vitamin D3) 25 mcg PO DAILY empagliflozin (Jardiance) 10 mg PO DAILY ergocalciferol (vitamin D2) 1,250 mcg PO QWEEK ferrous sulfate 325 mg PO DAILY lancets (TRUEplus Lancets) As directed metformin ER 500 mg PO QPM metoprolol tartrate 1 tab PO BID telmisartan (Micardis) 80 mg PO DAILY warfarin 5 mg See Protocol PO DAILY warfarin 2.5 mg See Protocol PO DIRECTED Nursing Note INR: 3.2 in therapeutic range ILEANA MICHAELS TO HAVE INR MORNING OF Medications and supplements reviewed No changes in health, diet, medications, or supplements, Denies any signs and symptoms of bleeding or bruising or clotting. Bleeding, bruising, clotting discussed Nutritional guidance given Dose: 5MG X 2 DAYS/ 2.5MG X 5 DAYS F/U INR: 10/08/23 Patient verbalizes understanding of instructions given Anti-Coag Initial Assessment Social Hx Patient Tobacco Use Status: Never used Tobacco alcohol intake: former Alcohol intake frequency: does not drink Coding Level of Care Code Est Patient Level 1 Diagnoses Current use of anticoagulant therapy Z79.01 Results AMB INR Fingerstick AMB INR Fingerstick 3.2 Last Edit by Kianna Aviles RN on 09/17/23 14:19 MANUAL ENTRY Assessment & Plan Assessment & Plan (1) Current use of anticoagulant therapy: Code(s): Z79.01 - jail (current) 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
== END 2023-09-17 14:28 | disposition home or self-care (01) ==
LOC: HO.ACS 14:09
PROVIDERS: PCP Family Medicine; Visit Provider Internal Medicine
DX: Z79.01 Long term (current) use of anticoagulants (principal)

== ENCOUNTER → 2023-09-17 14:09 | Outpatient (BNVA) | payer OTHER, SELFPAY | PROVIDERS: PCP Family Medicine; Visit Provider Internal Medicine | DX: Z95.2 Presence of prosthetic heart valve (principal); Z79.01 Long term (current) use of anticoagulants; Z51.81 Encounter for therapeutic drug level monitoring | CPT/HCPCS: 85610; 99211 ==

== ENCOUNTER 2023-10-08 13:05 | Outpatient (AMB) | payer OTHER, SELFPAY ==
[2023-10-08 13:14] LABS: Prothrombin Time Whole Bld POC 38.9 sec (11.1-13.5); ~PT, ~INR - Anti Coag Clinic 3.2 (0.9-1.1)
--- NOTE | 2023-10-08 13:17 | MHC.OFFVISCO ---
Intake Intake Visit Reasons: Anticoagulation Allergies lisinopril [LISINOPRIL] Allergy (Intermediate, Verified 10/08/23 13:08) rash/cough, palpitations Medication List - Last Reconciled 10/08/23 by Kianna Aviles RN amlodipine 5 mg PO DAILY aspirin 81 mg PO DAILY atorvastatin 80 mg PO BEDTIME blood sugar diagnostic (FreeStyle Lite Strips) As directed blood-glucose meter (FreeStyle [place] Lite kit) As directed cholecalciferol (vitamin D3) (Vitamin D3) 25 mcg PO DAILY empagliflozin (Jardiance) 10 mg PO DAILY ergocalciferol (vitamin D2) 1,250 mcg PO QWEEK ferrous sulfate 325 mg PO DAILY lancets (TRUEplus Lancets) As directed metformin ER 500 mg PO QPM metoprolol tartrate 1 tab PO BID telmisartan (Micardis) 80 mg PO DAILY warfarin 5 mg See Protocol PO DAILY warfarin 2.5 mg See Protocol PO DIRECTED Nursing Note INR: 3.2 in therapeutic range Medications and supplements reviewed No changes in health, diet, medications, or supplements, Denies any signs and symptoms of bleeding or bruising or clotting. Bleeding, bruising, clotting discussed Nutritional guidance given -INCREASE GREENS Dose: KEEP [id number] X 2 DAYS/ 2.5G X 5 DAYS F/U INR: 10/26/23 MORNING OF DENTAL CLEANING Patient verbalizes understanding of instructions given Anti-Coag Initial Assessment Social Hx Patient Tobacco Use Status: Never used Tobacco alcohol intake: former Alcohol intake frequency: does not drink Coding Level of Care Code Est Patient Level 1 Diagnoses Current use of anticoagulant therapy Z79.01 Results AMB INR Fingerstick AMB INR Fingerstick 3.2 Last Edit by Kianna Aviles RN on 10/08/23 13:13 manual entry Assessment & Plan Assessment & Plan (1) Current use of anticoagulant therapy: Code(s): Z79.01 - [facility] (current) 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
== END 2023-10-08 13:19 | disposition home or self-care (01) ==
LOC: HO.ACS 13:05
PROVIDERS: PCP Family Medicine; Visit Provider Internal Medicine
DX: Z79.01 Long term (current) use of anticoagulants (principal)

== ENCOUNTER → 2023-10-08 13:05 | Outpatient (BNVA) | payer OTHER, SELFPAY | PROVIDERS: PCP Family Medicine; Visit Provider Internal Medicine | DX: Z95.2 Presence of prosthetic heart valve (principal); Z79.01 Long term (current) use of anticoagulants; Z51.81 Encounter for therapeutic drug level monitoring | CPT/HCPCS: 85610; 99211 ==

== ENCOUNTER 2023-10-20 11:55 | Outpatient (REF) | payer OTHER, SELFPAY ==
[2023-10-20 18:10] LABS: Creatinine Urine 171.37 mg/dL
[2023-10-20 18:31] LABS: Microalbum/Creatinine Ratio Ur 316.8 ug/mg cr (<30)
== END 2023-10-20 11:56 | disposition home or self-care (01) ==
LOC: HO.HHCL 11:55
PROVIDERS: Visit Provider Family Medicine
DX: E11.22 Type 2 diabetes mellitus with diabetic chronic kidney disease (principal); N18.9 Chronic kidney disease, unspecified
CPT/HCPCS: 82043; 82570

== ENCOUNTER 2023-10-26 07:58 | Outpatient (AMB) | payer OTHER, SELFPAY ==
[2023-10-26 08:07] LABS: Prothrombin Time Whole Bld POC 36.2 sec (11.1-13.5)
--- NOTE | 2023-10-26 08:34 | MHC.OFFVISCO ---
Intake Intake Visit Reasons: Anticoagulation Allergies lisinopril [LISINOPRIL] Allergy (Intermediate, Verified 10/08/23 13:08) rash/cough, palpitations Nursing Note INR: 3.0 in therapeutic range of 2.5-3.5 Interpretter used to communicate with pt She denies any recent illness, feels well No changes in medications or supplements No changes diet Denies any signs and symptoms of bleeding or bruising or clotting. 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
== END 2023-10-26 08:37 | disposition home or self-care (01) ==
LOC: HO.ACS 07:58
PROVIDERS: PCP Family Medicine; Visit Provider Internal Medicine
DX: Z79.01 Long term (current) use of anticoagulants (principal)

== ENCOUNTER → 2023-10-26 07:58 | Outpatient (BNVA) | payer OTHER, SELFPAY | PROVIDERS: PCP Family Medicine; Visit Provider Internal Medicine | DX: Z95.2 Presence of prosthetic heart valve (principal); Z79.01 Long term (current) use of anticoagulants; Z51.81 Encounter for therapeutic drug level monitoring | CPT/HCPCS: 85610; 99211 ==

== ENCOUNTER 2023-11-15 07:31 | Day surgery (SDC) | payer OTHER, SELFPAY ==
[2023-11-10 08:25] VITALS: BMI 25.2
--- NOTE | 2023-11-11 13:49 | P.CONAN_ITS ---
Documented by User: Edith Sousa NP 11/11/23 13:50 HPI - Anesthesia Eval Consult details Narrative: 67yo F for Right Cataract Extraction IOL Insertion No previous cataract on record Warfarin - Hx AVR Anesthesia Pre-Procedure Meds Is the patient on any of the following meds?: SGLT2 Inhib PMFSH Active Problems Active Problems: All Active Problems Atypical ductal hyperplasia of breast (Acute) Current use of anticoagulant therapy (Acute) Current use of anticoagulant therapy (Acute) Past Medical History Medical History Hepatitis C Depression Pelvic pressure in female Osteopenia Back pain Stage 3 chronic kidney disease Proteinuria Phyllodes tumor On anticoagulant therapy Hyperlipidemia Atrial fibrillation Aortic valve disorder Chronic kidney disease Hip pain Diabetes Atypical hyperplasia of left breast High cholesterol HTN (hypertension) Family History Family History Mother Diabetes Father HTN (hypertension) Surgical History Surgical History Hx of aortic valve repair Hx of cholecystectomy Hx of breast lump removal Hx of artificial heart valve replacement Social History Social History Household Members: Spouse Housing: House Are you a primary rn care transition to a significant other at home: No Do you presently have visiting nurse or other home services: Yes Alcohol intake: former Patient Tobacco Use Status: Never used Tobacco Advance Directives: No Advance Directives Information Provided: Yes Advance Directives on File: No Nutrition Risks: No Nutritional Risk Patient : No : No service: No Current occupational status: unemployed Meds Allergies Allergy/AdvReac Type Severity Reaction Status Date / Time lisinopril [LISINOPRIL] Allergy Intermediate rash/cough, Verified 10/08/23 13:08 palpitations Home Medications ?Medication ?Instructions ?Recorded ?Confirmed ?Last Taken ?Type aspirin 81 mg tablet,delayed 81 mg PO DAILY 08/27/20 11/10/23 Unknown History release metoprolol tartrate 50 mg tablet 1 tab PO BID 08/27/20 11/10/23 Unknown History warfarin 2.5 mg tablet 2.5 mg PO DIRECTED 10/11/20 11/10/23 Unknown History blood sugar diagnostic (Vitaliy #10 ea 05/02/21 11/10/23 Unknown History Lite Strips) blood-glucose meter (FreeStyle #1 ea 05/02/21 11/10/23 Unknown History [place] Lite kit) cholecalciferol (vitamin D3) 25 25 mcg PO DAILY 05/02/21 11/10/23 Unknown History mcg (1,000 unit) capsule (Vitamin D3) lancets 33 gauge (TRUEplus Lancets) #100 ea 05/02/21 11/10/23 Unknown History metformin 500 mg tablet,extended 500 mg PO QPM 01/21/22 11/10/23 Unknown History release 24 hr telmisartan 80 mg tablet (Micardis) 80 mg PO DAILY 01/21/22 11/10/23 Unknown History atorvastatin 80 mg tablet 80 mg PO BEDTIME 02/06/22 11/10/23 Unknown History ferrous sulfate 325 mg (65 mg 325 mg PO DAILY 07/03/22 11/10/23 Unknown History iron) tablet amlodipine 5 mg tablet 5 mg PO DAILY 11/10/23 11/10/23 Unknown History cyanocobalamin (vitamin B-12) 500 500 mcg PO DAILY 11/10/23 11/10/23 Unknown History mcg tablet (Vitamin B-12) empagliflozin 25 mg tablet 25 mg PO DAILY 11/10/23 11/10/23 Unknown History (Jardiance) warfarin 5 mg tablet 5 mg PO DIRECTED 11/10/23 11/10/23 Unknown History Exam Height,Weight and Vital Signs: Height 5 ft 2 in Weight 62.596 kg Assessment and Plan Assessment Anesthesia Assessment: Chart Reviewed Documented by User: Rhona Valdez MD 11/15/23 10:43 [facility] Past Medical History Medical History Hepatitis C Depression Pelvic pressure in female Osteopenia Back pain Stage 3 chronic kidney disease Proteinuria Phyllodes tumor On anticoagulant therapy Hyperlipidemia Atrial fibrillation Aortic valve disorder Chronic kidney disease Hip pain Diabetes Atypical hyperplasia of left breast High cholesterol HTN (hypertension) Family History Family History Mother Diabetes Father HTN (hypertension) Surgical History Surgical History Hx of aortic valve repair Hx of cholecystectomy Hx of breast lump removal Hx of artificial heart valve replacement History of Problems with Anesthesia: No Social History Social History Household Members: Spouse Housing: House Are you a primary rn care transition to a significant other at home: No Do you presently have visiting nurse or other home services: Yes Alcohol intake: former Patient Tobacco Use Status: Never used Tobacco Advance Directives: No Advance Directives Information Provided: Yes Advance Directives on File: No Nutrition Risks: No Nutritional Risk Patient : No : No service: No Current occupational status: unemployed Meds Allergies Allergy/AdvReac Type Severity Reaction Status Date / Time lisinopril [LISINOPRIL] Allergy Intermediate rash/cough, Verified 10/08/23 13:08 palpitations Home Medications ?Medication ?Instructions ?Recorded ?Confirmed ?Last Taken ?Type aspirin 81 mg tablet,delayed 81 mg PO DAILY 08/27/20 11/10/23 Unknown History release metoprolol tartrate 50 mg tablet 1 tab PO BID 08/27/20 11/10/23 Unknown History warfarin 2.5 mg tablet 2.5 mg PO DIRECTED 10/11/20 11/10/23 Unknown History blood sugar diagnostic (FreeStyle #10 ea 05/02/21 11/10/23 Unknown History Lite Strips) blood-glucose meter (FreeStyle #1 ea 05/02/21 11/10/23 Unknown History [place] Lite kit) cholecalciferol (vitamin D3) 25 25 mcg PO DAILY 05/02/21 11/10/23 Unknown History mcg (1,000 unit) capsule (Vitamin D3) lancets 33 gauge (TRUEplus Lancets) #100 ea 05/02/21 11/10/23 Unknown History metformin 500 mg tablet,extended 500 mg PO QPM 01/21/22 11/10/23 Unknown History release 24 hr telmisartan 80 mg tablet (Micardis) 80 mg PO DAILY 01/21/22 11/10/23 Unknown History atorvastatin 80 mg tablet 80 mg PO BEDTIME 02/06/22 11/10/23 Unknown History ferrous sulfate 325 mg (65 mg 325 mg PO DAILY 07/03/22 11/10/23 Unknown History iron) tablet amlodipine 5 mg tablet 5 mg PO DAILY 11/10/23 11/10/23 Unknown History cyanocobalamin (vitamin B-12) 500 500 mcg PO DAILY 11/10/23 11/10/23 Unknown History mcg tablet (Vitamin B-12) empagliflozin 25 mg tablet 25 mg PO DAILY 11/10/23 11/10/23 Unknown History (Jardiance) warfarin 5 mg tablet 5 mg PO DIRECTED 11/10/23 11/10/23 Unknown History Exam Airway Mallampati Class: II TM Dist: >3cm Neck ROM: Full Loose/Missing/Broken Teeth: No Heart: RRR Lungs: CTA Assessment and Plan Assessment Anesthesia Assessment: Anesthesia Plan Discussed Final Anesthetic Review History of Problems with Anesthesia: No NPO: Yes ASA Class: III Final Preanesthetic Review: Meds/Allgs Chart Reviewed, Consent Obtained/Reviewed and Anes Risks/Benef Reviewed Patient Risk: Intermediate Procedure Risk: Low Anesthetic Plan Anesthetic Plan: MAC: Disposition: Standard PACU
[2023-11-15] MEDS: Tetracaine HCl/PF 0.5% Oph Sol 4 ML DROPS 1 DROP EYE-RIGHT (10:15)
[2023-11-15] MEDS: Cyclopentolate 1 % Ophth Sol 2 ML DRPBTL 1 DROP EYE-RIGHT ×3 (10:17→10:34)
[2023-11-15] MEDS: Ketorolac Tromethamine 0.5% Op 10 ML DROPS 1 DROP EYE-RIGHT ×3 (10:19→10:38)
[2023-11-15] MEDS: Tropicamide 1 % Ophth Sol 3 ML BTL 1 DROP EYE-RIGHT ×3 (10:21→10:36)
[2023-11-15] MEDS: Phenylephrine HCL 2.5% Oph SoL 2 ML BOTTLE 1 DROP EYE-RIGHT ×3 (10:23→10:40)
[2023-11-15] MEDS: Lactated Ringers 500 ML 50 ML IV (10:25)
[2023-11-15 10:50] VITALS: BP 145/63; PULSE 61; RESP 16; TEMP 36.1; O2SAT 99
--- NOTE | 2023-11-15 11:26 | P.PCNO_ITS ---
Ophthalmology Procedure Procedure Date of Service: 11/15/23 Ophthalmology Viscoelastic: Healon Duet Dual Pack Pro Ophthalmology Lenses: IOL Acrysof MP - MA60AC (22) Procedure Notes: PREOPERATIVE DIAGNOSIS: Decreased visual acuity right eye secondary to cataract POSTOPERATIVE DIAGNOSIS: Same PROCEDURE: Right cataract extraction with intraocular lens insertion SURGEON: Sage Campa M.D. ANESTHESIA: Topical/MAC ESTIMATED BLOOD LOSS: None COMPLICATIONS: None After obtaining informed consent, the patient was brought to the operating room suite and placed in the supine position. After adequate sedation per anesthesia, topical drops of Tetracaine were given to the right eye. The eye was then prepped and draped in the usual sterile fashion. The operating room microscope was then positioned over the operative eye and a lid speculum placed. A paracentesis was created. Viscoelastic was then instilled into the anterior chamber. A three plane incision was then created temporally, utilizing a 2.85 mm keratome. Capsulotomy forceps were then utilized to create a circular tear capsulotomy. Hydrodissection and hydrodelineation were carried out until adequate mobilization of the nucleus occurred. Phacoemulsification was then utilized to remove the dense central nucl eus followed by removal of the cortical material utilizing the automated aspiration irrigation unit. Viscoelastic was instilled into the posterior capsular bag followed by placement of a posterior chamber intraocular lens without difficulty. The residual Viscoelastic was then removed utilizing the automated IA machine. The wound was checked and found to be watertight. The patient tolerated the procedure well and the lid speculum was removed. Intracameral injection of Vigamox 0.1 mL followed by a subtenon injection of Kenalog-40 0.2 mL were administered. The patient will be seen in the a.m.
--- NOTE | 2023-11-15 11:26 | MHC.SHP ---
Pre-Procedural Eval Section A - 24 Hr Update-Section A only Date of Service: 11/15/23 The patient is an INPATIENT: No Changes since office visit: No Cold of Flu in the past 2 weeks, No New Medical Problems, No Changes in Medication and No Patient answered all questions The patient has been examined within 24 hours of the surgical procedure. The History & Physical has been completed within 30 days and I have reviewed it.: Yes Section B - Complete if H&P > 30 days Chief Complaint: Age-related nuclear cataract, right eye Allergies: Allergies Allergy/AdvReac Type Severity Reaction Status Date / Time lisinopril [LISINOPRIL] Allergy Intermediate rash/cough, Verified 11/15/23 10:54 palpitations Plan Diagnosis/Plan: Unchanged I have reviewed the history and physical and performed a pertinent physical examination on my patient. No changes have occurred unless specified. Time Spent With Patient Time: Total time managing care of this patient today ____ minutes.
[2023-11-15 12:25] VITALS: BP 129/75; PULSE 65; RESP 16; TEMP 36.2; O2SAT 99
[2023-11-15 13:14] LABS: Glucose, Whole Blood 108 mg/dL (60-115)
== END 2023-11-15 12:40 | disposition home or self-care (01) ==
PROVIDERS: PCP Family Medicine; Visit Provider Ophthalmology
PROC: (CPT 66985; principal; 2023-11-15 10:10)
DX: H25.11 Age-related nuclear cataract, right eye (principal); H52.4 Presbyopia; H11.153 Pinguecula, bilateral; I10 Essential (primary) hypertension; E11.9 Type 2 diabetes mellitus without complications; E78.00 Pure hypercholesterolemia, unspecified; I48.91 Unspecified atrial fibrillation; Z79.84 Long term (current) use of oral hypoglycemic drugs; Z79.01 Long term (current) use of anticoagulants; Z79.899 Other long term (current) drug therapy; Z56.0 Unemployment, unspecified
CPT/HCPCS: 66984; 82947; J2250; J3010; J3301; V2630

== ENCOUNTER 2023-11-26 13:03 | Outpatient (AMB) | payer OTHER, SELFPAY ==
--- NOTE | 2023-11-26 13:19 | MHC.OFFVISCO ---
Intake Intake Visit Reasons: Anticoagulation Allergies lisinopril [LISINOPRIL] Allergy (Intermediate, Verified 11/26/23 13:06) rash/cough, palpitations Medication List - Last Reconciled 11/26/23 by Kianna Aviles RN amlodipine 5 mg PO DAILY aspirin 81 mg PO DAILY atorvastatin 80 mg PO BEDTIME blood sugar diagnostic (FreeStyle Lite Strips) As directed blood-glucose meter (FreeStyle [place] Lite kit) As directed calcium carbonate (Calcium Antacid) mg PO cholecalciferol (vitamin D3) (Vitamin D3) 25 mcg PO DAILY cyanocobalamin (vitamin B-12) (Vitamin B-12) 500 mcg PO DAILY empagliflozin (Jardiance) 25 mg PO DAILY ferrous sulfate 325 mg PO DAILY lancets (TRUEplus Lancets) As directed metformin ER 500 mg PO QPM metoprolol tartrate 1 tab PO BID telmisartan (Micardis) 80 mg PO DAILY warfarin 5 mg See Protocol PO DIRECTED warfarin 2.5 mg See Protocol PO DIRECTED Nursing Note INR: 2.7 in therapeutic range Medications and supplements reviewed No changes in health, diet, medications, or supplements, Denies any signs and symptoms of bleeding or bruising or clotting. Bleeding, bruising, clotting discussed Nutritional guidance given Dose: SAME F/U INR: 4 WEEKS Patient verbalizes understanding of instructions given Anti-Coag Initial Assessment Social Hx Patient Tobacco Use Status: Never used Tobacco alcohol intake: former Alcohol intake frequency: does not drink Coding Level of Care Code Est Patient Level 1 Diagnoses Current use of anticoagulant therapy Z79.01 Results AMB INR Fingerstick AMB INR Fingerstick 2.7 Last Edit by Kianna Aviles RN on 11/26/23 13:15 MANUAL ENTRY Assessment & Plan Assessment & Plan (1) Current use of anticoagulant therapy: Code(s): Z79.01 - residential (current) 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
[2023-11-26 13:22] LABS: Prothrombin Time Whole Bld POC 32.8 sec (11.1-13.5); ~PT, ~INR - Anti Coag Clinic 2.7 (0.9-1.1)
== END 2023-11-26 13:20 | disposition home or self-care (01) ==
LOC: HO.ACS 13:03
PROVIDERS: PCP Family Medicine; Visit Provider Internal Medicine
DX: Z79.01 Long term (current) use of anticoagulants (principal)

== ENCOUNTER → 2023-11-26 13:03 | Outpatient (BNVA) | payer OTHER, SELFPAY | PROVIDERS: PCP Family Medicine; Visit Provider Internal Medicine | DX: Z95.2 Presence of prosthetic heart valve (principal); Z79.01 Long term (current) use of anticoagulants; Z51.81 Encounter for therapeutic drug level monitoring | CPT/HCPCS: 85610; 99211 ==

== ENCOUNTER 2023-11-29 07:15 | Day surgery (SDC) | payer OTHER, SELFPAY ==
[2023-11-10 08:32] VITALS: BMI 25.2
--- NOTE | 2023-11-25 13:03 | P.CONAN_ITS ---
Documented by User: Edith Sousa NP 11/25/23 13:04 HPI - Anesthesia Eval Consult details Narrative: 67yo F for Left Cataract Extraction IOL Insertion Right eye 11/15/23: Fent 50, Midaz 2 Warfarin - afib, hx AVR Anesthesia Pre-Procedure Meds Is the patient on any of the following meds?: SGLT2 Inhib PMFSH Active Problems Active Problems: All Active Problems Atypical ductal hyperplasia of breast (Acute) Current use of anticoagulant therapy (Acute) Current use of anticoagulant therapy (Acute) Past Medical History Medical History Hepatitis C Depression Pelvic pressure in female Osteopenia Back pain Stage 3 chronic kidney disease Proteinuria Phyllodes tumor On anticoagulant therapy Hyperlipidemia Atrial fibrillation Aortic valve disorder Chronic kidney disease Hip pain Diabetes Atypical hyperplasia of left breast High cholesterol HTN (hypertension) Family History Family History Mother Diabetes Father HTN (hypertension) Surgical History Surgical History Hx of aortic valve repair Hx of cholecystectomy Hx of breast lump removal Hx of artificial heart valve replacement History of Problems with Anesthesia: No Social History Social History Household Members: Spouse Housing: House Are you a primary hearing healthcare practitioner to a significant other at home: No Do you presently have visiting nurse or other home services: Yes Alcohol intake: former Patient Tobacco Use Status: Never used Tobacco Are you DNR?: No Advance Directives: No Advance Directives Information Provided: Yes Advance Directives on File: No Recently lost weight without trying: No Nutrition Risks: No Nutritional Risk Patient : No : No service: No Current occupational status: unemployed Meds Allergies Allergy/AdvReac Type Severity Reaction Status Date / Time lisinopril [LISINOPRIL] Allergy Intermediate rash/cough, Verified 11/29/23 08:02 palpitations Home Medications ?Medication ?Instructions ?Recorded ?Confirmed ?Last Taken ?Type aspirin 81 mg tablet,delayed 81 mg PO DAILY 08/27/20 11/26/23 Unknown History release metoprolol tartrate 50 mg tablet 1 tab PO BID 08/27/20 11/26/23 11/29/23 07:00 History warfarin 2.5 mg tablet 2.5 mg PO DIRECTED 10/11/20 11/26/23 Unknown History blood sugar diagnostic (FreeStyle #10 ea 05/02/21 11/26/23 Unknown History Lite Strips) blood-glucose meter (FreeStyle #1 ea 05/02/21 11/26/23 Unknown History [place] Lite kit) cholecalciferol (vitamin D3) 25 25 mcg PO DAILY 05/02/21 11/26/23 Unknown History mcg (1,000 unit) capsule (Vitamin D3) lancets 33 gauge (TRUEplus Lancets) #100 ea 05/02/21 11/26/23 Unknown History metformin 500 mg tablet,extended 500 mg PO QPM 01/21/22 11/26/23 Unknown History release 24 hr telmisartan 80 mg tablet (Micardis) 80 mg PO DAILY 01/21/22 11/26/23 11/29/23 07:00 History atorvastatin 80 mg tablet 80 mg PO BEDTIME 02/06/22 11/26/23 Unknown History ferrous sulfate 325 mg (65 mg 325 mg PO DAILY 07/03/22 11/26/23 Unknown History iron) tablet amlodipine 5 mg tablet 5 mg PO DAILY 11/10/23 11/26/23 11/29/23 07:00 History cyanocobalamin (vitamin B-12) 500 500 mcg PO DAILY 11/10/23 11/26/23 Unknown History mcg tablet (Vitamin B-12) empagliflozin 25 mg tablet 25 mg PO DAILY 11/10/23 11/26/23 11/26/23 06:00 History (Jardiance) warfarin 5 mg tablet 5 mg PO DIRECTED 11/10/23 11/26/23 Unknown History calcium carbonate (Calcium Antacid) mg PO 11/26/23 11/26/23 Unknown History Exam Height,Weight and Vital Signs: Height 5 ft 2 in Weight 62.596 kg Assessment and Plan Assessment Anesthesia Assessment: Chart Reviewed Final Anesthetic Review History of Problems with Anesthesia: No Documented by User: Deepti Adams MD 11/29/23 08:51 [facility] Past Medical History Medical History Hepatitis C Depression Pelvic pressure in female Osteopenia Back pain Stage 3 chronic kidney disease Proteinuria Phyllodes tumor On anticoagulant therapy Hyperlipidemia Atrial fibrillation Aortic valve disorder Chronic kidney disease Hip pain Diabetes Atypical hyperplasia of left breast High cholesterol HTN (hypertension) Family History Family History Mother Diabetes Father HTN (hypertension) Family history of problems with anesthesia: No Surgical History Surgical History Hx of aortic valve repair Hx of cholecystectomy Hx of breast lump removal Hx of artificial heart valve replacement Social History Social History Household Members: Spouse Housing: House Are you a primary hearing healthcare practitioner to a significant other at home: No Do you presently have visiting nurse or other home services: Yes Alcohol intake: former Patient Tobacco Use Status: Never used Tobacco Are you DNR?: No Advance Directives: No Advance Directives Information Provided: Yes Advance Directives on File: No Recently lost weight without trying: No Nutrition Risks: No Nutritional Risk Patient : No : No service: No Current occupational status: unemployed Meds Allergies Allergy/AdvReac Type Severity Reaction Status Date / Time lisinopril [LISINOPRIL] Allergy Intermediate rash/cough, Verified 11/29/23 08:02 palpitations Home Medications ?Medication ?Instructions ?Recorded ?Confirmed ?Last Taken ?Type aspirin 81 mg tablet,delayed 81 mg PO DAILY 08/27/20 11/26/23 Unknown History release metoprolol tartrate 50 mg tablet 1 tab PO BID 08/27/20 11/26/23 11/29/23 07:00 History warfarin 2.5 mg tablet 2.5 mg PO DIRECTED 10/11/20 11/26/23 Unknown History blood sugar diagnostic (FreeStyle #10 ea 05/02/21 11/26/23 Unknown History Lite Strips) blood-glucose meter (FreeStyle #1 ea 05/02/21 11/26/23 Unknown History [place] Lite kit) cholecalciferol (vitamin D3) 25 25 mcg PO DAILY 05/02/21 11/26/23 Unknown History mcg (1,000 unit) capsule (Vitamin D3) lancets 33 gauge (TRUEplus Lancets) #100 ea 05/02/21 11/26/23 Unknown History metformin 500 mg tablet,extended 500 mg PO QPM 01/21/22 11/26/23 Unknown History release 24 hr telmisartan 80 mg tablet (Micardis) 80 mg PO DAILY 01/21/22 11/26/23 11/29/23 07:00 History atorvastatin 80 mg tablet 80 mg PO BEDTIME 02/06/22 11/26/23 Unknown History ferrous sulfate 325 mg (65 mg 325 mg PO DAILY 07/03/22 11/26/23 Unknown History iron) tablet amlodipine 5 mg tablet 5 mg PO DAILY 11/10/23 11/26/23 11/29/23 07:00 History cyanocobalamin (vitamin B-12) 500 500 mcg PO DAILY 11/10/23 11/26/23 Unknown History mcg tablet (Vitamin B-12) empagliflozin 25 mg tablet 25 mg PO DAILY 11/10/23 11/26/23 11/26/23 06:00 History (Jardiance) warfarin 5 mg tablet 5 mg PO DIRECTED 11/10/23 11/26/23 Unknown History calcium carbonate (Calcium Antacid) mg PO 11/26/23 11/26/23 Unknown History Exam Airway Mallampati Class: II TM Dist: >3cm Neck ROM: Full Heart: rrr Lungs: cta Assessment and Plan Assessment Anesthesia Assessment: Anesthesia Plan Discussed Final Anesthetic Review Family History of Problems with Anesthesia: No NPO: Yes ASA Class: III Final Preanesthetic Review: No Changes in Pt Med Stat, Meds/Allgs Chart Reviewed, Consent Obtained/Reviewed and Anes Risks/Benef Reviewed Patient Risk: Intermediate Procedure Risk: Low Anesthetic Plan Anesthetic Plan: MAC: Disposition: Standard PACU
[2023-11-29 07:53] VITALS: BP 143/68; PULSE 56; RESP 15; TEMP 36.4; O2SAT 98
[2023-11-29 08:06] LABS: Glucose, Whole Blood 114 mg/dL (60-115)
[2023-11-29] MEDS: Tetracaine HCl/PF 0.5% Oph Sol 4 ML DROPS 1 DROP EYE-LEFT (08:19)
[2023-11-29] MEDS: Cyclopentolate 1 % Ophth Sol 2 ML DRPBTL 1 DROP EYE-LEFT ×3 (08:21→08:32)
[2023-11-29] MEDS: Lactated Ringers 500 ML 50 ML IV (08:22)
[2023-11-29] MEDS: Tropicamide 1 % Ophth Sol 3 ML BTL 1 DROP EYE-LEFT ×3 (08:22→08:33)
[2023-11-29] MEDS: Ketorolac Tromethamine 0.5% Op 10 ML DROPS 1 DROP EYE-LEFT ×3 (08:23→08:34)
[2023-11-29] MEDS: Phenylephrine HCL 2.5% Oph SoL 2 ML BOTTLE 1 DROP EYE-LEFT ×3 (08:25→08:36)
--- NOTE | 2023-11-29 08:56 | MHC.SHP ---
Pre-Procedural Eval Section A - 24 Hr Update-Section A only Date of Service: 11/29/23 The patient is an INPATIENT: No Changes since office visit: No Cold of Flu in the past 2 weeks, No New Medical Problems, No Changes in Medication and No Patient answered all questions The patient has been examined within 24 hours of the surgical procedure. The History & Physical has been completed within 30 days and I have reviewed it.: Yes Section B - Complete if H&P > 30 days Chief Complaint: Age-related nuclear cataract, left eye Allergies: Allergies Allergy/AdvReac Type Severity Reaction Status Date / Time lisinopril [LISINOPRIL] Allergy Intermediate rash/cough, Verified 11/29/23 08:02 palpitations Plan Diagnosis/Plan: Unchanged I have reviewed the history and physical and performed a pertinent physical examination on my patient. No changes have occurred unless specified. Time Spent With Patient Time: Total time managing care of this patient today ____ minutes.
--- NOTE | 2023-11-29 08:56 | HO.PNOPHT ---
Ophthalmology Procedure Procedure Date of Service: 11/29/23 Ophthalmology Viscoelastic: Healon Duet Dual Pack Pro Ophthalmology Lenses: IOL Acrysof MP - MA60AC (23) Procedure Notes: PREOPERATIVE DIAGNOSIS: Decreased visual acuity left eye secondary to cataract POSTOPERATIVE DIAGNOSIS: Same PROCEDURE: Left cataract extraction with intraocular lens insertion SURGEON: Sage Campa M.D. ANESTHESIA: Topical/MAC ESTIMATED BLOOD LOSS: None COMPLICATIONS: None After obtaining informed consent, the patient was brought to the operation room suite and placed in the supine position. After adequate sedation per anesthesia, topical drops of Tetracaine were given to the left eye. The eye was then prepped and draped in the usual sterile fashion. The operating room microscope was then positioned over the operative eye and a lid speculum placed. A paracentesis was created. Viscoelastic was then instilled into the anterior chamber. A three plane incision was then created temporally, utilizing a 2.85 mm keratome. Capsulotomy forceps were then utilized to create a circular tear capsulotomy. Hydrodissection and hydrodelineation were carried out until adequate mobilization of the nucleus occurred. Phacoemulsification was then utilized to remove the dense central nucleus followed by removal of the cortical material utilizing the automated aspiration irrigation unit. Viscoat elastic was instilled into the posterior capsular bag followed by placement of a posterior chamber intraocular lens without difficulty. The residual Viscoat elastic was then removed utilizing the automated IA machine. The wound was check and found to be watertight. The patient tolerated the procedure well and the lid speculum was removed. Intracameral injection of Vigamox 0.1 mL followed by a subtenon injection of Kenalog-40 0.2 mL were administered. The patient will be seen in the a.m.
[2023-11-29 09:23] VITALS: BP 117/53; PULSE 60; RESP 16; TEMP 36.5; O2SAT 98
== END 2023-11-29 09:33 | disposition home or self-care (01) ==
PROVIDERS: PCP Family Medicine; Visit Provider Ophthalmology
PROC: (CPT 66985; principal; 2023-11-29 09:30)
DX: H25.12 Age-related nuclear cataract, left eye (principal); H52.4 Presbyopia; H11.153 Pinguecula, bilateral; E11.22 Type 2 diabetes mellitus with diabetic chronic kidney disease; I12.9 Hypertensive chronic kidney disease with stage 1 through stage 4 chronic kidney disease, or unspecified chronic kidney disease; N18.31 Chronic kidney disease, stage 3a; E78.00 Pure hypercholesterolemia, unspecified; Z95.2 Presence of prosthetic heart valve; Z79.01 Long term (current) use of anticoagulants; Z79.82 Long term (current) use of aspirin; Z79.84 Long term (current) use of oral hypoglycemic drugs; Z79.899 Other long term (current) drug therapy; Z88.8 Allergy status to other drugs, medicaments and biological substances
CPT/HCPCS: 66984; 82947; J2250; J3301; V2630

== ENCOUNTER 2023-12-24 13:00 | Outpatient (AMB) | payer OTHER, SELFPAY ==
[2023-12-24 13:16] LABS: Prothrombin Time Whole Bld POC 30.4 sec (11.1-13.5); ~PT, ~INR - Anti Coag Clinic 2.5 (0.9-1.1)
--- NOTE | 2023-12-24 13:22 | MHC.OFFVISCO ---
Intake Intake Visit Reasons: Anticoagulation Allergies lisinopril [LISINOPRIL] Allergy (Intermediate, Verified 12/24/23 13:10) rash/cough, palpitations Medication List - Last Reconciled 12/24/23 by Kianna Aviles RN amlodipine 5 mg PO DAILY aspirin 81 mg PO DAILY atorvastatin 80 mg PO BEDTIME blood sugar diagnostic (FreeStyle Lite Strips) As directed blood-glucose meter (FreeStyle [place] Lite kit) As directed calcium carbonate (Calcium Antacid) mg PO cholecalciferol (vitamin D3) (Vitamin D3) 25 mcg PO DAILY cyanocobalamin (vitamin B-12) (Vitamin B-12) 500 mcg PO DAILY empagliflozin (Jardiance) 25 mg PO DAILY ferrous sulfate 325 mg PO DAILY lancets (TRUEplus Lancets) As directed metformin ER 500 mg PO QPM metoprolol tartrate 1 tab PO BID telmisartan (Micardis) 80 mg PO DAILY warfarin 5 mg See Protocol PO DIRECTED warfarin 2.5 mg See Protocol PO DIRECTED Nursing Note INR: 2.5 in therapeutic range Medications and supplements reviewed No changes in health, diet, medications, or supplements, Denies any signs and symptoms of bleeding or bruising or clotting. Bleeding, bruising, clotting discussed Nutritional guidance given Dose: 5mg x 2 days/ 2.5mg x 5 days F/U INR: 4 weeks Patient verbalizes understanding of instructions given Anti-Coag Initial Assessment Social Hx Patient Tobacco Use Status: Never used Tobacco alcohol intake: former Alcohol intake frequency: does not drink Coding Level of Care Code Est Patient Level 1 Diagnoses Current use of anticoagulant therapy Z79.01 Results AMB INR Fingerstick AMB INR Fingerstick 2.5 Last Edit by Kianna Aviles RN on 12/24/23 13:18 MANUAL ENTRY Assessment & Plan Assessment & Plan (1) Current use of anticoagulant therapy: Code(s): Z79.01 - [facility] (current) 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
== END 2023-12-24 13:24 | disposition home or self-care (01) ==
LOC: HO.ACS 13:00
PROVIDERS: PCP Family Medicine; Visit Provider Internal Medicine
DX: Z79.01 Long term (current) use of anticoagulants (principal)

== ENCOUNTER → 2023-12-24 13:00 | Outpatient (BNVA) | payer OTHER, SELFPAY | PROVIDERS: PCP Family Medicine; Visit Provider Internal Medicine | DX: Z95.2 Presence of prosthetic heart valve (principal); Z79.01 Long term (current) use of anticoagulants; Z51.81 Encounter for therapeutic drug level monitoring | CPT/HCPCS: 85610; 99211 ==

== ENCOUNTER 2024-01-21 13:02 | Outpatient (AMB) | payer OTHER, SELFPAY ==
[2024-01-21 13:14] LABS: Prothrombin Time Whole Bld POC 32.5 sec (11.1-13.5); ~PT, ~INR - Anti Coag Clinic 2.7 (0.9-1.1)
--- NOTE | 2024-01-21 13:16 | MHC.OFFVISCO ---
Intake Intake Visit Reasons: Anticoagulation Allergies lisinopril [LISINOPRIL] Allergy (Intermediate, Verified 01/21/24 13:08) rash/cough, palpitations Medication List - Last Reconciled 01/21/24 by Kianna Aviles RN amlodipine 5 mg PO DAILY aspirin 81 mg PO DAILY atorvastatin 80 mg PO BEDTIME blood sugar diagnostic (FreeStyle Lite Strips) As directed blood-glucose meter (FreeStyle [place] Lite kit) As directed calcium carbonate (Calcium Antacid) mg PO cholecalciferol (vitamin D3) (Vitamin D3) 25 mcg PO DAILY cyanocobalamin (vitamin B-12) (Vitamin B-12) 500 mcg PO DAILY empagliflozin (Jardiance) 25 mg PO DAILY ferrous sulfate 325 mg PO DAILY lancets (TRUEplus Lancets) As directed metformin ER 500 mg PO QPM metoprolol tartrate 1 tab PO BID telmisartan (Micardis) 80 mg PO DAILY warfarin 5 mg See Protocol PO DIRECTED warfarin 2.5 mg See Protocol PO DIRECTED Nursing Note INR: 2.7 in therapeutic range Medications and supplements reviewed No changes in health, diet, medications, or supplements, Denies any signs and symptoms of bleeding or bruising or clotting. 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
== END 2024-01-21 13:20 | disposition home or self-care (01) ==
LOC: HO.ACS 13:02
PROVIDERS: PCP Family Medicine; Visit Provider Internal Medicine
DX: Z79.01 Long term (current) use of anticoagulants (principal)

== ENCOUNTER → 2024-01-21 13:02 | Outpatient (BNVA) | payer OTHER, SELFPAY | PROVIDERS: PCP Family Medicine; Visit Provider Internal Medicine | DX: Z95.2 Presence of prosthetic heart valve (principal); Z79.01 Long term (current) use of anticoagulants; Z51.81 Encounter for therapeutic drug level monitoring | CPT/HCPCS: 85610; 99211 ==

== ENCOUNTER 2024-02-18 13:02 | Outpatient (AMB) | payer OTHER, SELFPAY ==
[2024-02-18 13:06] LABS: Prothrombin Time Whole Bld POC 30.9 sec (11.1-13.5); ~PT, ~INR - Anti Coag Clinic 2.6 (0.9-1.1)
--- NOTE | 2024-02-18 13:24 | MHC.OFFVISCO ---
Intake Intake Visit Reasons: Anticoagulation Allergies lisinopril [LISINOPRIL] Allergy (Intermediate, Verified 02/18/24 13:02) rash/cough, palpitations Medication List - Last Reconciled 02/18/24 by Adelina Garcia RN amlodipine 5 mg PO DAILY aspirin 81 mg PO DAILY atorvastatin 80 mg PO BEDTIME blood sugar diagnostic (FreeStyle Lite Strips) As directed blood-glucose meter (FreeStyle [place] Lite kit) As directed calcium carbonate (Calcium Antacid) mg PO cholecalciferol (vitamin D3) (Vitamin D3) 25 mcg PO DAILY cyanocobalamin (vitamin B-12) (Vitamin B-12) 500 mcg PO DAILY empagliflozin (Jardiance) 25 mg PO DAILY ferrous sulfate 325 mg PO DAILY lancets (TRUEplus Lancets) As directed metformin ER 500 mg PO QPM metoprolol tartrate 1 tab PO BID telmisartan (Micardis) 80 mg PO DAILY warfarin 5 mg See Protocol PO DIRECTED warfarin 2.5 mg See Protocol PO DIRECTED Nursing Note INR: 2.6 in therapeutic range of 2.5-3.5 Electrical Continuity Inspector used via interpretive phone vendor #[id number] Medications and supplements reviewed No changes in health, diet, medications, or supplements, Denies any signs and symptoms of bleeding or bruising or clotting. Bleeding, bruising, clotting discussed Nutritional guidance given to avoid greens today Dose: 2.5mg X 5 days and 5mg X 2 days F/U INR: 4 weeks Patient verbalizes understanding of instructions given Anti-Coag Initial Assessment Social Hx Patient Tobacco Use Status: Never used Tobacco alcohol intake: former Alcohol intake frequency: does not drink Questionnaires HAS-BLED Does the patient had uncontrolled Hypertension?: No Does the patient have renal disease?: No Does the patient have liver disease?: No Does the patient have a history of stroke?: No Has the patient had major bleeding or predisposition to bleeding?: No Does the patient have labile INRs?: No Is the patient over 65 years of age?: Yes Is the patient on medications that gives them a predisposition to bleeding?: Yes Does the patient use alcohol?: No HAS-BLED Score: 2 CHADSVASC Age: 66-74 Gender: Female Does the patient have a history of CHF?: No Does the patient have a history of Hypertension?: Yes Does the patient have a history of Stroke/TIA/Thromboembolism?: No Does the patient have a history of Vascular Disease (prior KS, PAD or aortic plaque)?: Yes Does the patient have a history of Diabetes?: Yes CHADS VACS Score: 5 Obdulia Prediction Score Rsk VTE Active Cancer: No Previous VTE, excluding superficial vein thrombosis: No Reduced mobility: No Already known Thrombophilic Condition: Yes With-in last month Trauma and/or Surgery: No Elderly 70 year or older: No Heart and/or Respiratory Failure: No Acute Myocardial infarction and/or Ischemic Stroke: No Acute Infection and/or Rheumatologic Disorder: No Obesity (BMI 30 or greater): No Ongoing Hormonal Treatment: No Score: 3 Obdulia Score less than 4; Low Risk of VTE Obdulia Score 4 or greater; High Risk of VTE Coding Level of Care Code Est Patient Level 1 Diagnoses Current use of anticoagulant therapy Z79.01 Assessment & Plan Assessment & Plan (1) Current use of anticoagulant therapy: Code(s): Z79.01 - shelter (current) 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
== END 2024-02-18 13:36 | disposition home or self-care (01) ==
LOC: HO.ACS 13:02
PROVIDERS: PCP Family Medicine; Visit Provider Internal Medicine
DX: Z79.01 Long term (current) use of anticoagulants (principal)

== ENCOUNTER → 2024-02-18 13:02 | Outpatient (BNVA) | payer OTHER, SELFPAY | PROVIDERS: PCP Family Medicine; Visit Provider Internal Medicine | DX: Z95.2 Presence of prosthetic heart valve (principal); Z79.01 Long term (current) use of anticoagulants; Z51.81 Encounter for therapeutic drug level monitoring | CPT/HCPCS: 85610; 99211 ==

== ENCOUNTER 2024-03-17 13:01 | Outpatient (AMB) | payer OTHER, SELFPAY ==
[2024-03-17 13:11] LABS: Prothrombin Time Whole Bld POC 34.2 sec (11.1-13.5); ~PT, ~INR - Anti Coag Clinic 2.9 (0.9-1.1)
--- NOTE | 2024-03-17 13:16 | MHC.OFFVISCO ---
Intake Intake Visit Reasons: Anticoagulation Allergies lisinopril [LISINOPRIL] Allergy (Intermediate, Verified 03/17/24 13:07) rash/cough, palpitations Medication List - Last Reconciled 03/17/24 by Kianna Aviles RN amlodipine 5 mg PO DAILY aspirin 81 mg PO DAILY atorvastatin 80 mg PO BEDTIME blood sugar diagnostic (FreeStyle Lite Strips) As directed blood-glucose meter (FreeStyle [place] Lite kit) As directed calcium carbonate (Calcium Antacid) mg PO cholecalciferol (vitamin D3) (Vitamin D3) 25 mcg PO DAILY cyanocobalamin (vitamin B-12) (Vitamin B-12) 500 mcg PO DAILY empagliflozin (Jardiance) 25 mg PO DAILY ferrous sulfate 325 mg PO DAILY lancets (TRUEplus Lancets) As directed metformin ER 500 mg PO QPM metoprolol tartrate 1 tab PO BID telmisartan (Micardis) 80 mg PO DAILY warfarin 5 mg See Protocol PO DIRECTED warfarin 2.5 mg See Protocol PO DIRECTED Nursing Note INR: 2.9 in therapeutic range Medications and supplements reviewed Currently has a cold - runny nose / sinus x 1 month - no new medications Denies any signs and symptoms of bleeding or bruising or clotting. 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
== END 2024-03-17 13:18 | disposition home or self-care (01) ==
LOC: HO.ACS 13:01
PROVIDERS: PCP Family Medicine; Visit Provider Internal Medicine
DX: Z79.01 Long term (current) use of anticoagulants (principal)

== ENCOUNTER → 2024-03-17 13:01 | Outpatient (BNVA) | payer OTHER, SELFPAY | PROVIDERS: PCP Family Medicine; Visit Provider Internal Medicine | DX: Z95.2 Presence of prosthetic heart valve (principal); Z79.01 Long term (current) use of anticoagulants; Z51.81 Encounter for therapeutic drug level monitoring | CPT/HCPCS: 85610; 99211 ==

== ENCOUNTER 2024-04-19 10:46 | Outpatient (AMB) | payer OTHER, SELFPAY ==
--- NOTE | 2024-04-19 11:12 | MHC.OFFVISCO ---
Intake Intake Visit Reasons: Anticoagulation Allergies lisinopril [LISINOPRIL] Allergy (Intermediate, Verified 04/19/24 10:48) rash/cough, palpitations Nursing Note NO CP,SOB,DIET/MED CHANGES,FALLS OR SX OF BLEEDING. CONTINUE PRESENT DOSE AND FOLLOW-UP IN 4 WEEKS GOOD UNDETRSTANDING OF DOSING INSTR. PT.DENIES NEED FOR QUALITY CONTROL TECH RAW MATERIALS TODAY Anti-Coag Initial Assessment Social Hx Patient Tobacco Use Status: Never used Tobacco alcohol intake: former Alcohol intake frequency: does not drink Coding Level of Care Code Est Patient Level 1 Diagnoses Current use of anticoagulant therapy Z79.01 Results AMB INR Fingerstick AMB INR Fingerstick 2.8 Last Edit by Rhona Hidalgo RN on 04/19/24 10:54 Assessment & Plan Assessment & Plan (1) Current use of anticoagulant therapy: Code(s): Z79.01 - senior care (current) 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
--- OUTSIDE RECORDS SUMMARY | 2024-04-19 11:32 | XMS_ITS | Encounter Summary ---
Author Organization [facility] Address [address] [place] [address] Phone Care Team Providers Care Weapons Mechanic Name Role Phone Dominique Alcaraz MD Primary Care Provider Brent gomez Encounter Details Date Type Department Care Team (Late Contact Info) Description 10/27/2023 Documentation Only [facility] [address] [place] [address] Michelle Linares [address] [place] [address] Social History Tobacco Use Types Packs/Day Years Used Date Smoking Tobacco: Never Alcohol Use Standard Drinks/Week Comments No 0 (1 standard drink = 0.6 oz pur e alcohol) Comments Unknown Sex and Gender Information Value Date Recorded Sex Assigned at Not on file Legal Sex Female 4:33 PM EST Gender Identity Not on file Sexual Orientation Not on file documented as of this encounter Plan of Treatment Upcoming Encounters Date Type Department Care Team (Late Contact Info) Description 07/05/2024 1:45 PM EDT Office Visit [facility] [address] [place] [address] Refugio Huston MD [address] [place] [address] [place] [address] documented as of this encounter Visit Diagnoses Not on filedocumented in this encounter Care Teams Weapons Mechanic Relationship Specialty Start Date End Date Dominique Alcaraz MD PCP - General 01/03/19 documented as of this encounter
--- OUTSIDE RECORDS SUMMARY | 2024-04-19 11:32 | XMS_ITS | Encounter Summary ---
Author Organization [facility] Address [address] [place] [address] Phone Care Team Providers Care Inspector Of Weights And Measures Name Role Phone Dominique Alcaraz MD Primary Care Provider U patricia Encounter Details Date Type Department Care Team (Late st Contact Info) Description 06/08/2022 Documentation Only [facility] [address] [place] [address] Cesia Perry PA Social History Tobacco Use Types Packs/Day Years [...] Visit [facility] [address] [place] [address] Refugio Huston MD [address] [place] [address] [place] [address] documented as of this encounter Visit Diagnoses Not on filedocumented in this encounter Care Teams Inspector Of Weights And Measures Relationship Specialty Start Date End Date Dominique Alcaraz MD PCP - General 01/03/19 documented as of this encounter
--- OUTSIDE RECORDS SUMMARY | 2024-04-19 11:32 | XMS_ITS | Encounter Summary ---
Author Organization [employer] [facility] Address [address] [place] [address] Care Team Providers Care Control Panel Assembler Name Role Phone Dominique Alacraz MD Primary Care Provider + [phone] Martina Wesley PharmD Unavailable [phone]- [phone] Reason for Visit * Reason Comments Med Refill Encounter Details Date Type Department Care Team (Late st Contact Info) Description 04/18/2024 Refill [facility] [address] [place] [address] Dominique Alcaraz MD [address] [place], [place] [phone] History of aortic valve repair; Paroxysmal atrial fibrillation (CMS/HCC) Social History Tobacco Use Types Packs/Day Years Used Date Smoking Tobacco: Never Smokeless Tobacco: Never Depression Answer Date Recorded Patient Health Questionnaire-9 Score 8 11/03/2023 Patient Health Questionnaire-9 Score 8 11/03/2023 Last PHQ-9: Questionnaire Data Not on file 0 11/03/2023 Housing Stability Answer Date Recorded What is your housing situation today? I have jase li 11/03/[address] you li ve. Do you have problems with any of the following? None of the above 11/03/2023 Food Insecurity Answer Date Recorded Within the past 12 months, y ou worried that your food would run out before you got money to buy more: Never True 11/03/2023 Within the past 12 months,th e food you bought just didn't last and you didn't have enough money to get more: Never True 05/2023 Transportation Answer Date Recorded In the past 12 months, has l ack of transportation kept you from medical appts, meetings, work or from getting things needed for daily living? No 11/03/2023 Utilities Answer Date Recorded In the past 12 months, has t he electric, gas, oil or water company threatened to shut off services in your home? No 11/03/2023 Depression Answer Date Recorded Patient Health Questionnaire-2 Score 4 11/03/2023 Internet Access Answer Date Recorded Internet Access Q1 No 11/03/2023 Internet Access Q2 I do not want or need it 05/2023 Comments Unknown Sex and Gender Information Value Date Recorded Sex Assigned at Female 12/29/2021 10:18 AM EDT Legal Sex Female 10:18 AM EDT Gender Identity Female 12/29/2021 10:18 AM EDT Sexual Orientation Straight 12/29/2021 10 :18 AM EDT documented as of this encounter Miscellaneous Notes * Telephone Encounter - Nelda Banks RN - 04/18/2024 3:29 PM EST Pt follows with [facility]. Last seen by them 03/17/24. INR was 2.9 at that time. Is on monthly INR schedule. Has been compliant with INR and coumadin dosing via coumadin clinic. RN approves and queued refills. documented in this encounter Plan of Treatment Upcoming Encounters Date Type Department Care Team (Late st Contact Info) Description 05/02/2024 1:00 PM EST Office Visit [facility] [address] [place] [address] Simran Crooks [address] [place], [place] [phone] 07/25/2024 10:00 AM EDT Medication Management [facility] [address] [place], [place] [phone] Martina Wesley, PharmD [address] [place], [place] [phone] documented as of this encounter Goals Goal Patient Goal Type Associated Problems Recent Progress Patient-Stated? Author Blood Pressure < 140/90 Blood Pressure 130/62(2023 10:17 AM EST) No Martina Tiwari PharmD Hemoglobin A1c < 7 Result Component 6.8( 10:04 AM EST) No Martina Tiwari PharmD documented as of this encounter Visit Diagnoses Diagnosis History of aortic valve repair Paroxysmal atrial fibrillation (CMS/HCC) Atrial fibrillation documented in this encounter Additional Health Concerns Assessment Noted Time PHQ-9 Depression Total Score: 8 11/03/19 24 9:00 AM EDT documented as of this encounter Care Teams Control Panel Assembler Relationship Specialty Start Date End Date Dominique Alcaraz MD [address] [place] [address] PCP - General Family Medicine 12/20/12 Martina Wesley PharmD [address] [place] [address] Pharmacist Internal Medicine 03/12/22 documented as of this encounter
--- OUTSIDE RECORDS SUMMARY | 2024-04-19 11:32 | XMS_ITS | Encounter Summary ---
Author Organization [facility] Address [address] [place] [address] Phone Care Team Providers Care Probation And Patrol Agent Name Role Phone Dominique Alcaraz MD Primary Care Provider U patricia Encounter Details Date Type Department Care Team (Late st Contact Info) Description 03/12/2023 Documentation Only [facility] [address] [place] [address] Cesia Perry PA Social History [...] Visit [facility] [address] [place] [address] Refugio Huston MD [address] [place] [address] [place] [address] documented as of this encounter Visit Diagnoses Not on filedocumented in this encounter Care Teams Probation And Patrol Agent Relationship Specialty Start Date End Date Dominique Alcaraz MD PCP - General 01/03/19 documented as of this encounter
--- OUTSIDE RECORDS SUMMARY | 2024-04-19 11:32 | XMS_ITS | Clinical Summary ---
Author Organization [id number] [facility] Address [address] [place] [address] Care Team Providers Care Pharmacy Technologist Name Role Phone Dominique Alcaraz MD Primary Care Provider [phone]- [phone] Martina Wesley PharmD Unavailable [phone] Allergies Active Allergy Reactions Criticality Noted Date Comments Lisinopril Palpitations,Shortne ss of breath High 05/22/2010 Other reaction(s): palpitations, SOB Medications aspirin 81 MG EC tablet Take 1 tablet by mouth in the morning. 12/14/19 13 Active Ferrous Sulfate (iron) 325 (65 Fe) MG tablet TAKE 1 TABLET BY MOUTH ONCE DAILY WITH BREAKFAST 06/10/19 23 Active TRUEplus Lancets 33G misc TEST BLOOD SUGAR TWICE DAILY 100 each 11 07/03/19 23 Active metoprolol tartrate (Lopressor) 50 MG tabletIndication s:Primary hypertension TAKE 1 TABLET BY MOUTH TWICE DAILY 60 tablet 03/17/19 24 Active atorvastatin (Lipitor) 80 MG tabletIndication s:Type 2 diabetes mellitus without complication, 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 continuous churn buttermaker insulin use ([facility]) TAKE 1 TABLET BY MOUTH ONCE DAILY 30 tablet 05/07/19 24 Active glucose blood (FREESTYLE LITE) test stripIndications :Type 2 diabetes mellitus with chronic kidney disease, without long-term current use of insulin, unspecified CKD stage ([facility]) TEST BLOOD SUGAR TWICE DAILY 100 each 09/17/19 24 Active cyanocobalamin (Vitamin B-12) 500 MCG tablet Take 500 mcg by mouth Once per day. PT PURCHASING OTC Active Jardiance 25 MGIndications:Ty pe 2 diabetes mellitus with chronic kidney disease, without long-term current use of insulin, unspecified CKD stage (CMS/HCC) Take 25 mg by mouth Once per day. 10/27/19 24 Active calcium carbonate (Tums) 500 MG chewable tabletIndication s:Osteopenia of multiple sites Chew 1 tablet (500 mg) 2 times daily. 60 tablet 11 11/03/19 24 025 Active Magnesium 500 MG capsule PT PURCHASING OTC Active telmisartan (MIcarDIS) 80 MG tabletIndication s:Primary hypertension Take 1 tablet by mouth once daily 90 tablet 1 01/25/20 24 Active amLODIPine (Norvasc) 5 MG tabletIndication s:Hypertension, unspecified type Take 1 tablet (5 mg) by mouth Once per day. 90 tablet 1 01/25/20 24 Active metFORMIN XR (Glucophage-XR) 500 MG 24 hr tabletIndication s:Stage 2 chronic kidney disease TAKE 1 TABLET BY MOUTH EVERY DAY 30 tablet 03/31/19 25 Active cholecalciferol (D3-1000) 25 MCG (1000 UT) capsuleIndicatio ns:Vitamin D deficiency TAKE 1 CAPSULE BY MOUTH EVERY DAY 30 capsule 03/31/19 25 Active warfarin (Coumadin) 2.5 MG tabletIndication s:History of aortic valve repair TAKE DIRECTED BY COUMADIN CLINIC 60 tablet 3 04/18/19 25 Active warfarin (Coumadin) 5 MG tabletIndication s:History of aortic valve repair,Paroxysma l atrial fibrillation (CMS/HCC) TAKE DIRECTED BY COUMADIN CLINIC 30 tablet 3 04/18/19 25 Active cholecalciferol (Vitamin D High Potency) 25 MCG (1000 UT) capsuleIndicatio ns:Vitamin D deficiency TAKE 1 CAPSULE BY MOUTH EVERY DAY 30 capsule 03/17/19 24 025 Discontinued metFORMIN XR (Glucophage-XR) 500 MG 24 hr tabletIndication s:Stage 2 chronic kidney disease TAKE 1 TABLET BY MOUTH EVERY DAY 30 tablet 03/17/19 24 025 Discontinued warfarin (Coumadin) 5 MG tabletIndication s:History of aortic valve repair,Paroxysma l atrial fibrillation (CMS/HCC) TAKE DIRECTED BY COUMADIN CLINIC 30 tablet 3 11/22/19 24 025 Discontinued warfarin (Coumadin) 2.5 MG tabletIndication s:History of aortic valve repair TAKE DIRECTED BY COUMADIN CLINIC 60 tablet 3 11/22/19 24 025 Discontinued Active Problems Patient Care Coordination No te Formatting of this note migh t be different from the original. Enrolled in [facility] DM and [facility] HTN clinic with Martina Wesley, [place], [facility] Barrel Painter: Jaci Brancher Agency: [employer] [facility] [employer] [employer] [facility] Problem Noted Date Diagnosed Date Cardiac risk counseling 12/08/2023 Overview (12/08/2023): Calculated 12/08/23: intermediate risk The 10-year ASCVD risk score (Tomy GARCIA, et al., 2019) is: 19.6% Values used to calculate the score: Age: 67 years Sex: Female Is Non- : No Diabetic: Yes Tobacco smoker: No Systolic Blood Pressure: 137 mmHg Is BP treated: Yes HDL Cholesterol: 37 mg/dL Total Cholesterol: 154 mg/dL Lab Results Component Value Date LDLCHOL 65 02/18/2022 LDLCHOL SEE COMMENT 12/11/2021 -Tobacco cessation: not applicable -Statin therapy: atorvastatin 80 -Importance of moderate physical activity and nutrition interventions discussed. Depression, recurrent 11/03/2023 Encounter for hepatitis C sc reening test for low risk patient 11/03/2023 Overview (11/03/2023): -ordered Hep C screening 11/03/23 Assessment & Plan (11/03/2023 9:29 AM EDT): -ordered Hep C screening 11/03/23 Pelvic pressure in female 05/05/2023 Overview (05/05/2023): Pt though uterus might be prolapsed. Normal exam, area of concern fleshy area under urethra. Advised let me know if symptoms return. Assessment & Plan (05/05/2023 3:02 PM EST): Pt though uterus might be prolapsed. Normal exam, area of concern fleshy area under urethra. Advised let me know if symptoms return. Osteopenia of multiple sites 04/16/2023 Overview (11/03/2023): -DEXA 04/15/23 Osteopenia based on the lowest T-score value of -2.0 in the lumbar spine applying World Health Organization criteria. -Discussed DEXA results and FRAX risk. FRAX risk and T score showed no evidence of osteoporosis. -Discussed with the patient all the options for osteoporosis prevention and advised: -Weight bearing exercises -Adequate protein intake -Patient verbalized understanding and agreed plan will repeat DEXA in 2 years -Start -Ca+D supplements 1200 mg po qd/800 MIU 11/03/23 Assessment & Plan (11/03/2023 9:33 AM EDT): -DEXA 04/15/23 Osteopenia based on the lowest T-score value of -2.0 in the lumbar spine applying World Health Organization criteria. -Discussed DEXA results and FRAX risk. FRAX risk and T score showed no evidence of osteoporosis. -Discussed with the patient all the options for osteoporosis prevention and advised: -Weight bearing exercises -Adequate protein intake -Patient verbalized understanding and agreed plan will repeat DEXA in 2 years -Start -Ca+D supplements 1200 mg po qd/800 MIU 11/03/23 Assessment & Plan (05/05/2023 10:54 AM EST): -DEXA 04/15/23 Osteopenia based on the lowest T-score value of -2.0 in the lumbar spine applying World Health Organization criteria. -Discussed DEXA results and FRAX risk. FRAX risk and T score showed no evidence of osteoporosis. -Discussed with the patient all the options for osteoporosis prevention and advised: -Ca+D supplements 1200 mg po qd/800 MIU -Weight bearing exercises -Adequate protein intake -Patient verbalized understanding and agreed plan will repeat DEXA in 2 years Preventative health care 11/04/2022 Overview (11/03/2023): -next physical exam due after 11/05/2023 -eye care facilitated by Dr. Cano last done 06/18/2022 -dental home is [facility] -Health care proxy 11/03/23 Assessment & Plan (11/03/2023 9:32 AM EDT): -next physical exam due after 11/05/2023 -eye care facilitated by Dr. Cano last done 06/18/2022 -dental home is [facility] -Health care proxy 11/03/23 Assessment & Plan (11/04/2022 9:18 AM EDT): -next physical exam due after 11/05/2023 -eye care facilitated by Dr. Cano last done 05/2022 -dental home is [facility] Low back pain without sciatica 11/04/2022 Overview (11/04/2022): PT referral done 11/04/2022. Assessment & Plan (11/04/2022 9:23 AM EDT): PT referral done 11/04/2022. Pre-op evaluation 08/05/2022 Overview (11/03/2023): For cataract surgery at [facility] with Dr. Gusman. Pt with mechanical valve on anticoagulation. Recommend continue anticoagulation. Will refer to cardiology to evaluate, will likely continue Coumadin but will ask about ASA. Cataract extraction is one of the only status low risk procedures where anticoagulation is not interrupted. Addendum: TC placed to [facility] to inquire on PCP question regarding if pt should hold aspirin prior to upcoming cataract surgery on 11/15/23. Per the cardiology office the pt has not been seen since November of 2022. The office is going to call the pt to try and schedule an appt before upcoming surgery on 11/15/23. After this appointment the rice dryer mechanic will be able to determine what medications should or can be held. Assessment & Plan (11/03/2023 9:26 AM EDT): For cataract surgery at [facility] with Dr. Gusman. Pt with mechanical valve on anticoagulation. Recommend continue anticoagulation. Cataract extraction is one of the only status low risk procedures where anticoagulation is not interrupted. Assessment & Plan (08/05/2022 3:24 PM EDT): For cataract surgery. Pt with mechanical valve on anticoagulation. Recommend continue anticoagulation. Cataract extraction is one of the only status low risk procedures where anticoagulation is not interrupted. 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 Jacob Pappas on 09/2017. She will be seen in 09/2018. Hx diagnostic cath found to have an occlusion of her OMB a clot was identified and was removed by balloon angioplasty . No stents were inserted, given the presence of this occlusion pt was treated medically as if she was post-PA. Pt was started on both Aspirin and Lipitor. No longer on Plavix. She was on on Digoxin 250 mcg but this was DISCONTINUED in Dec 2012 due to sinus pauses noted at cardiac rehab and her Metoprolol was increased to 25 mg po TID, she is now on aspirin and Coumadin. Last note from cardiac surgery is dated 12/08/12. Her rice dryer mechanic is Dr. Moses Dumont, last visit 05/2018 -PT NEEDS ANTIBIOTIC PROPHLAXIS PRIOR TO DENTAL WORK - RX AMOXICILLIN 2G PRIOR TO DENTAL WORK -Seen by Dr. Dumont 12/2022 recommending follow up 1 year -note from Patient followed at [facility] with Dr. John Dumont DO. 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 Jacob Pappas on 09/2017. She will be seen in 09/2018. Hx diagnostic cath found to have an occlusion of her OMB a clot was identified and was removed by balloon angioplasty . No stents were inserted, given the presence of this occlusion pt was treated medically as if she was post-PA. Pt was started on both Aspirin and Lipitor. No longer on Plavix. She was on on Digoxin 250 mcg but this was DISCONTINUED in Dec 2012 due to sinus pauses noted at cardiac rehab and her Metoprolol was increased to 25 mg po TID, she is now on aspirin and Coumadin. Last note from cardiac surgery is dated 12/08/12. Her rice dryer mechanic is Dr. Moses Dumont, last visit 05/2018 -PT NEEDS ANTIBIOTIC PROPHLAXIS PRIOR TO DENTAL WORK - RX AMOXICILLIN 2G PRIOR TO DENTAL WORK -Seen by Dr. 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 Jacob Pappas on 09/2017. She will be seen in 09/2018. Hx diagnostic cath found to have an occlusion of her OMB a clot was identified and was removed by balloon angioplasty . No stents were inserted, given the presence of this occlusion pt was treated medically as if she was post-PA. Pt was started on both Aspirin and Lipitor. No longer on Plavix. She was on on Digoxin 250 mcg but this was DISCONTINUED in Dec 2012 due to sinus pauses noted at cardiac rehab and her Metoprolol was increased to 25 mg po TID, she is now on aspirin and Coumadin. Last note from cardiac surgery is dated 12/08/12. Her rice dryer mechanic is Dr. 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 Atrophy of kidney 07/31/2019 Proteinuria 07/30/2019 Stage 3a chronic kidney disease 07/30/2019 Overview (10/20/2023): - Lab Results Component Value Date CREATININE 0.85 07/30/2023 EGFR >60 07/30/2023 MICROALBCREU 316.8 (H) 10/20/2023 LDLCHOLCAL 70 07/30/2023 -Followed by Dr Blancas -Continue jardiance 10mg -Continue telmisartan 80mg Assessment & Plan (05/05/2023 10:54 AM EST): Update for Diagnosis Load -Followed by Dr Blancas -Continue korina 10mg -Continue telmisartan 80mg Assessment & Plan (11/04/2022 9:06 AM EDT): Update for Diagnosis Load -Followed by Dr Blancas -Continue korina 10mg -Continue telmisartan 80mg History of cholecystectomy 07/21/2018 Atypical ductal hyperplasia of breast 04/07/2013 Overview (10/03/2023): 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 Last note dated 10/03/2013. Follow up annually for mammo and office visit. - [facility] no longer accepting pt's insurance so now followed at [facility] q [address] Pryor. -Last seen by oncology on where it was again discussed option of taking raloxifene, to decrease risk of breast cancer as well as for the osteopenia. She has declined again. Hematology to schedule the patient for a mammogram, in April of next year. 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 Last note dated 10/03/2013. Follow up annually for mammo and office visit. - [facility] no longer accepting pt's insurance so now followed at [facility] q [address] Pryor. -Last seen by oncology on 08/25/2019. 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 Last note dated 10/03/2013. Follow up annually for mammo and office visit. - [facility] no longer accepting pt's insurance so now followed at [facility] q [address] Pryor. -Last seen by oncology on 08/25/2019. -Recent Mammo 04/11/21 BI-RADS 2 benign Atrial fibrillation 03/26/2013 Overview (12/22/2023): - continue choric anticoagulation INR goal 2.5-3.5 due to heart valve repair -note from Patient followed at [facility] with Dr. John Dumont DO. 12/20/23 reveiwed Assessment & Plan (03/05/2022 12:04 PM EST): - continue choric anticoagulation INR goal 2.5-3.5 due to heart valve repair Type 2 diabetes mellitus 04/25/2012 Overview (11/03/2023): Diabetes is controlled. Lab Results Component Value Date HGBA1C 6.9 (A) 06/09/2023 HGBA1C 6.5 (A) 01/04/2023 HGBA1C 6.8 (H) 06/25/2022 Lab Results Component Value Date CREATININE 0.85 07/30/2023 EGFR >60 07/30/2023 MICROALBCREU 316.8 (H) 10/20/2023 LDLCHOLCAL 70 07/30/2023 -Haile/Arb: telmisartan 80mg -Statin therapy: atorvastatin 80mg -Diabetic eye exam: 05/2022 -Diabetic foot exam: 11/03/23 -Continue lifestyle modifications -Continue current medications -Metformin XR 500mg -Jardiance 10mg daily, prescribed by nephrology Assessment & Plan (11/03/2023 9:26 AM EDT): Diabetes is controlled. Lab Results Component Value Date HGBA1C 6.9 (A) 06/09/2023 HGBA1C 6.5 (A) 01/04/2023 HGBA1C 6.8 (H) 06/25/2022 Lab Results Component Value Date CREATININE 0.85 07/30/2023 EGFR >60 07/30/2023 MICROALBCREU 316.8 (H) 10/20/2023 LDLCHOLCAL 70 07/30/2023 -Haile/Arb: telmisartan 80mg -Statin therapy: atorvastatin 80mg -Diabetic eye exam: 05/2022 -Diabetic foot exam: 11/03/23 -Continue lifestyle modifications -Continue current medications -Metformin XR 500mg -Jardiance 10mg daily, prescribed by nephrology Assessment & Plan (05/05/2023 11:55 AM EST): Diabetes is controlled. - Lab Results Component Value Date HGBA1C 6.5 (A) 01/04/2023 HGBA1C 6.8 (H) 06/25/2022 HGBA1C 7.0 06/05/2022 - Lab Results Component Value Date MICROALBUR 68.5 12/11/2021 CREATININE 0.86 06/05/2022 -Haile/Arb: telmisartan 80mg -Statin therapy: atorvastatin 80mg -Diabetic eye exam: 05/2022 -Diabetic foot exam: 11/04/2022 -Continue lifestyle modifications -Continue current medications -Metformin XR 500mg -Jardiance 10mg daily, prescribed by nephrology Assessment & Plan (11/04/2022 9:15 AM EDT): Diabetes is controlled. - Lab Results Component Value Date HGBA1C 6.8 (H) 06/25/2022 HGBA1C 7.0 06/05/2022 HGBA1C 7.4 (A) 03/05/2022 -No results found for: POCA1C - Lab Results Component Value Date MICROALBUR 68.5 12/11/2021 CREATININE 0.86 06/05/2022 -Changes: -Haile/Arb: telmisartan 80mg -Statin therapy: atorvastatin 80mg -Diabetic eye exam: 05/2022 -Diabetic foot exam: 11/04/2022 -Continue lifestyle modifications -Continue current medications -Metformin XR 500mg -Jardiance 10mg daily, prescribed by nephrology Hyperlipidemia 04/25/2012 Overview (11/03/2023): Lab Results Component Value Date CHOL 154 07/30/2023 CHOL 132 06/05/2022 TRIG 239 (H) 07/30/2023 TRIG 225 06/05/2022 TRIG 211 (H) 02/18/2022 HDL 37 (L) 07/30/2023 HDL 29 06/05/2022 LDLCHOLCAL 70 07/30/2023 LDLCHOLCAL 58 06/05/2022 -continue lifestyle modification -continue atorvastatin 80mg daily -ordered lipid panel 11/03/23 -offered [place]-[facility], bu wants to trial lifestyle changes. Will recheck Dec 2023. Assessment & Plan (11/03/2023 9:34 AM EDT): Lab Results Component Value Date CHOL 154 07/30/2023 CHOL 132 06/05/2022 TRIG 239 (H) 07/30/2023 TRIG 225 06/05/2022 TRIG 211 (H) 02/18/2022 HDL 37 (L) 07/30/2023 HDL 29 06/05/2022 LDLCHOLCAL 70 07/30/2023 LDLCHOLCAL 58 06/05/2022 -continue lifestyle modification -continue atorvastatin 80mg daily -ordered lipid panel 11/03/23 -offered [place]-[facility], bu wants to trial lifestyle changes. Will recheck Dec 2023. Assessment & Plan (11/04/2022 9:07 AM EDT): Lab Results Component Value Date CHOLESTEROL 128 02/18/2022 LDLCHOL 65 02/18/2022 LDLCHOL SEE COMMENT 12/11/2021 LDLCHOL 80 12/20/2020 TRIG 225 06/05/2022 TRIG 211 (H) 02/18/2022 HDLCHOL 35 (L) 02/18/2022 CHOLHDLRAT 3.7 02/18/2022 -continue lifestyle modifications -Continue atorvastatin 80mg daily. Hypertension 04/25/2012 Overview (08/10/2023): -Blood pressure is not currently WNL; amlodipine 5mg once daily added by CDTM 08/10/23 -Followed by CDTM -Continue lifestyle modifications -Continue current medications Assessment & Plan (05/05/2023 11:56 AM EST): Blood pressure is at goal and has been at goal at home and with CDTM, we will continue to monitor. -Continue lifestyle modifications -Continue current medications Assessment & Plan (11/04/2022 9:27 AM EDT): -Blood pressure is not at goal but has been at goal at home and with CDTM, we will continue to monitor. -Continue lifestyle modifications -Continue current medications Assessment & Plan (07/08/2022 9:38 PM EDT): Pt BP today was elevated at 157/80, and after manually rechecking it was 170/85. Pt reports she had a stressful situation this morning and thinks her elevated BP is secondary to that. Reports to be complaint w meds and took this morning and states that at home all her BP measurements are below 140/90. Pt denies currently any headache, numbness, tingling in extremities, denies blurry vision, denies chest pain or shortness of breath, with an otherwise normal physical exam. -EKG done today is in NSR w no ischemic findings -Last labs from 06/05/2022: Cr normal, Hb1Ac 6.8, INR 2.8 -I'm concerned at this time with her significantly elevated BP and will hold off on the pre-op for now. Pt states she still does not have a date for the surgery and the surgery will be scheduled only after she has a clearance done here. Given that this is not an emergency surgery (cataract surgery per patient), will need to better control her BP. Given pt states normal BP at home, will continue for now with her current treatment for BP and advise to bring daily BP readings at her next visit. -Requested [place] to get records of last cardiology apt -Today scheduled apt with her PCP in 3 wks to monitor BP(pt refused apt in 2 wks because of schedule conflict) Aortic valve disorder 08/12/2011 Chronic kidney disease 07/20/2011 Overview (03/05/2022): -allergic to haile inhibitors (cough) -followed by Dr. Blancas Assessment & Plan (03/05/2022 12:05 PM EST): -allergic to haile inhibitors (cough) -followed by Dr. Blancas -avoid nephrotoxic agents Resolved Problems Problem Noted Date Diagnosed Date Resolved Date Diabetic nephropathy associa rakesh with type 2 diabetes mellitus 07/30/2019 11/04/2022 Encounters Date Type Department Care Team Description 04/18/2024 Refill [facility] [address] [place] [address] Dominique Alcaraz MD History of aortic valve repair; Paroxysmal atrial fibrillation (CMS/HCC) 03/31/2024 Refill [facility] [address], [place] [phone] Dominique Alcaraz MD Stage 2 chronic kidney disease; Vitamin D deficiency 03/17/2024 Orders Only GENERIC EXTERNAL DATA DEPARTMENT Provider, Generic External Data 02/18/2024 Orders Only GENERIC EXTERNAL DATA DEPARTMENT Provider, Generic External Data 01/24/2024 Travel 01/21/2024 Orders Only GENERIC EXTERNAL DATA DEPARTMENT Provider, Generic External Data 01/20/2024 Orders Only [facility] [address], [place] [phone] Dominique Alcaraz MD Hypertension, unspecified type (Primary Dx) 01/20/2024 Telephone [facility] [address], [place] [phone] Dominique Alcaraz MD from Last 3 Months Immunizations Name Administration Dates Next Due Hep B, adult 05/05/2023,11/04/2022,02/04/2022 Influenza High-dose Quadriva lent Preservative Free 12/04/2021 Influenza Injectable Quadriv alant Preservative Free IIV4 MDCK 01/11/2021 Influenza injectable quadriv alent IIV4 with preservative 01/27/2018,03/19/2015 Influenza injectable quadriv alent preservative free 12/09/2019,02/06/2019 Influenza, High Dose Seasona l, Preservative Free 11/23/2023 Influenza, IIV3, injectable 01/04/2014, 1 Influenza, Split (incl. katia fied surface antigen) 11/17/2011 [place] SARS-CoV-2 Vaccination 05/15/2020 Novel [id number] 11/19/2015 Pfizer Covid-19 Vaccine 12+ 01/31/2021 Pfizer Covid-19 Vaccine 12+ Bivalent 03/12/2022 Pneumococcal Conjugate PCV 13 01/04/2014 Pneumococcal Conjugate PCV 20 11/04/2022 Pneumococcal Polysaccharide PPSV23 10/11/2006 RSV Bivalent 11/23/2023 TD (adult), 2 Lf tetanus tox oid, preservative free, adsorbed 10/11/2006 Tdap 01/04/2014 Zoster, Recombinant 06/05/2021, 2,04/03/2021,04/03 Social History Tobacco Use Types Packs/Day Years Used Date Smoking Tobacco: Never Smokeless Tobacco: Never Tobacco Cessation:Counseling Given: Not Answered Depression Answer Date Recorded Patient Health Questionnaire-9 [...] Orientation Straight 12/29/2021 10 :18 AM EDT Last Filed Vital Signs Vital Sign Reading Time Taken Comments Blood Pressure 130/62 01/24/2024 10:17 AM EST Pulse 71 01/24/2024 10:16 AM EST Temperature 36.9 ??C (98.4 ??F) 11/03/2023 8:58 AM ED T Respiratory Rate 18 11/03/2023 8:58 AM EDT Oxygen Saturation 96% 05/05/2023 11:13 AM EST Inhaled Oxygen Concentration - - Weight 63 kg (138 lb 12.8 oz) 11/03/2023 8:58 AM EDT Height 157.5 cm (5' 2 ) 11/03/2023 8:58 AM EDT Body Mass Index 25.39 11/03/2023 8:58 AM EDT Plan of Treatment Upcoming Encounters Date Type Department Care Team (Late st Contact Info) Description 05/02/2024 1:00 PM EST Office Visit [facility] [address], [place] [phone] Simran Crooks [address], [place] [phone] 07/25/2024 10:00 AM EDT Medication Management [facility] [address] [place] [address] Martina Wesley, PharmD [address] [place] [address] Health Maintenance Due Date Last Done Comments CT Colonography 1955 FIT DNA/Cologuard 1955 FIT 1955 FOBT 1955 Sigmoidoscopy 1955 Alcohol/Substance Use Screening 1967 Hepatitis C Screening 12/24/1973 Dental Oral Exam 09/08/2023 03/09/2023, 04/2018, 09/30/2018, Additional history exists COVID-19 Vaccine ( season) 2023 03/12/2022, 01/31/2021, 05/15/2020 DTaP/Tdap/Td Vaccines (2 - Td or Tdap) 01/05/2024 01/04/2014, 10/11/2006 Dental X-Ray: Bitewings 03/10/2024 03/09/19 24, 09/30/2018, 05/17/2014 Dental Prophylaxis 04/28/2024 10/26/2023, 03/09/2023 Eye Exam 06/18/2024 06/18/2022 Diabetes: Hemoglobin A1C 07/23/2024 11/25/2 024, 11/03/2023, 06/09/2023, Additional history exists Lipid Panel 07/29/2024 07/30/2023, 0 08/2022, 02/18/2022, Additional history exists Depression Screening 11/02/2024 11/03/2023, 11/03/19 Diabetes: Foot Exam 11/02/2024 11/03/2023, 11/03/2023, 11/03/2023, Additional history exists SDOH Screening 11/02/2024 11/03/2023 Tobacco Screening 11/02/2024 11/03/2023 Mammogram 04/15/2025 04/15/2023, 04/01, 04/11/2021, Additional history exists Dental X-Ray: Full Mouth 03/10/2026 024, 09/30/2018, 05/17/2014 Colonoscopy 09/03/2028 09/03/2018 Colorectal Cancer Screening 09/03/2028 Zoster Vaccines Completed 06/05/2021, 0 08/2021, 04/03/2021, Additional history exists Pneumococcal Vaccine: 50+ Years Completed 11/04/2022, 01/04/2014, 10/11/2006 Hepatitis B Vaccines Completed 05/05/2023, 11/04/2022, 02/04/2022 Influenza Vaccine Completed 11/23/2023, , 01/11/2021, Additional history exists RSV Patients and Patients Aged 60 years or older Completed 11/23/2023 HIB Vaccines Aged Out No longer eligi ble based on patient's age to complete this topic HPV Vaccines Aged Out No longer eligi ble based on patient's age to complete this topic Hepatitis A Vaccines Aged Out No long er eligible based on patient's age to complete this topic IPV Vaccines Aged Out No longer eligi ble based on patient's age to complete this topic Meningococcal Vaccine Aged Out No biju marija eligible based on patient's age to complete this topic RSV under 20 months Aged Out No longe r eligible based on patient's age to complete this topic Rotavirus Vaccines Aged Out No longer eligible based on patient's age to complete this topic Goals Goal Patient Goal Type Associated Problems Recent Progress Patient-Stated? Author Blood Pressure < 140/90 Blood Pressure 130/62(2023 10:17 AM EST) No Martina Tiwari PharmD Hemoglobin A1c < 7 Result Component 6.8( 10:04 AM EST) No Martina Tiwari PharmD Procedures Procedure Name Priority Date/Time Associated Diagnosis Comments PROTHROMBIN TIME WHOLE BLD POC Routine 03/17/2024 1:10 PM EST ~PT, ~INR - ANTI COAG CLINIC Routine 03/17/2024 1:10 PM EST PROTHROMBIN TIME WHOLE BLD POC Routine 02/18/2024 1:05 PM EST ~PT, ~INR - ANTI COAG CLINIC Routine 02/18/2024 1:05 PM EST POCT GLYCATED HEMOGLOBIN, TOTAL Routine 01/24/2024 10:04 AM EST Type 2 diabetes mellitus with chronic kidney disease, without long-term current use of insulin, unspecified CKD stage (CMS/HCC) PROTHROMBIN TIME WHOLE BLD POC Routine 01/21/2024 1:12 PM EST ~PT, ~INR - ANTI COAG CLINIC Routine 01/21/2024 1:12 PM EST PROPHYLAXIS - ADULT Routine 10/26/2023 1 1:00 AM EDT LIPID PANEL, STANDARD Routine 07/30/2023 8:15 AM EDT BI MAMMOGRAM SCREENING TOMOSYNTHESIS BILATERAL Routine 04/15/2023 1:12 PM EST INTRAORAL - COMPLETE SERIES OF RADIOGRAPHIC IMAGES Routine 03/09/2023 1:00 PM EST COMPREHENSIVE ORAL EVALUATION - NEW OR ESTABLISHED PATIENT Routine 03/09/2023 1:00 PM EST HM DIABETES EYE EXAM Routine 06/18/2022 HM COLONOSCOPY Routine 09/03/2018 12:11 PM EDT from Last 3 Months or Most Recently Relevant to Health Maintenance Results * (ABNORMAL) PROTHROMBIN TIME WHOLE BLD POC (03/17/2024 1:10 PM EST) Only the most recent of3 resultswithin the time period is included. Protime 34.2(H) 11.1 - 13.5 sec [facility] 03/17/2024 1:10 PM EST 03/17/2024 1:11 PM EST Generic External Data Provider LAB BLOOD ORDERAB LES Final Result Performing Organization Address [facility] Co de Phone Number [facility] [address] [place] [phone] * (ABNORMAL) ~PT, ~INR - ANTI COAG CLINIC (03/17/2024 1:10 PM EST) Only the most recent of3 resultswithin the time period is included. Pathologist [facility] Prothrombin Time INR 2.9(H) 0.9 - 1.1 [facility] Comment:METER #: [id number] TERNATIONAL NORMALIZED RATIO (INR) REFERENCE RANGES Reference RangeFor patients not on anticoagulant therapy: 0.9 - 1.1INR ranges for oral anticoagulanttherapy:For prevention and treatment of venous thrombosis and pulmonary embolism: 2.0 - 3.0For acute myocardial infarction with aspirin therapy: 2.0 - 3.0For acute myocardial infarction without aspirin therapy: 3.0 - 4.0For patients with mechanical prosthetic heart valves: 2.5 - 3.5 03/17/2024 1:10 PM EST 03/17/2024 1:11 PM EST [employer] External Data Provider LAB BLOOD ORDERAB LES Final Result Performing Organization Address [facility] Co de Phone Number [facility] [address] [place] [phone] * (ABNORMAL) POCT HGB A1C (01/24/2024 10:04 AM EST) Pathologist [facility] Hemoglobin A1C 6.8(A) 4.0 - 6.0 % QC Media Lot # [id number] Lot# Expiration Date [id number] Blood 01/24/2024 10:0 4 AM EST Dominique Alcaraz MD POINT OF CARE TEST ENTER/E DIT ORDERABLES Final Result * (ABNORMAL) Lipid Panel, Standard (07/30/2023 8:15 AM EDT) Triglycerides 239(H) <150 mg/dL [facility] Comment:Desirable Triglyceri de: less than 150 mg/dLBorderline High Triglyceride 150-199 mg/dLHigh Triglyceride: 200-499 mg/dLVery High Triglyceride: greater than or equal to 5OO mg/dL Cholesterol 154 <200 mg/dL [facility] Comment:Desirable Cholestero l: less than 200 mg/dLBorderline High Cholesterol: 200-239 mg/dLHigh Cholesterol: greater than 239 mg/dL LDL Cholesterol Calculated 70 <100 mg/dL [facility] Comment:Desirable LDL: less than 100 mg/dLNear Optimal/Above Optimal LDL: 110- 129 mg/dLBorderline High LDL: 130-159 mg/dLHigh LDL: 160-189 mg/dLVery High LDL: greater than or equal to 190 mg/dL HDL Cholesterol 37(L) >40 mg/dL [facility] Comment:Desirable HDL: great er than 40 mg/dL Note: This HDL assay may give artificially low results in patients with liver disease. 07/30/2023 8:15 AM EDT 07/30/2023 11:12 AM EDT Dominique Alcaraz MD LAB BLOOD ORDERABLES Final Result [facility] [address] [place] [phone] * BI Mammogram Screening Tomosynthesis Bilateral (04/15/2023 1:12 PM EST) Anatomical Region Laterality Modality Breast Bilateral Mammography 04/15/2023 1:12 PM EST Narrative 05/09/2023 9:12 AM EDT ? [facility] ? [address] ?[place] [address] ? Mammography Report ? Signed ? Patient: Mart,Dyan L ?MR#: [id number] ?? [id number] ? : 1955 ?Acct:[id number] ? Age/Sex: 67 / F ?ADM Date: 04/15/23 ? Loc: HO.MAMMO ? Attending Dr: Chun Álvarez MD ? Ordering Physician: Chun Álvarez MD ?Results: 2Benig ?? n Findings ? Date of Service: 04/15/23 ?Follow Up: 1 Year From Orig ?? inal Mammogram ? Procedure(s): MM tomosynthesis screening BI ?? Accession Number(s): [id number] ? cc: Dominique Alcaraz MD; Chun Álvarez MD ? EXAMINATION: ?? MM SCREENING DIGITAL BREAST TOMOSYNTHESIS, BILATERAL ? CLINICAL INFORMATION: ? Screening. Asymptomatic. ? COMPARISON: ?? Mammography: This study is compared with prior exams dating back to ?? 2017. ? TECHNIQUE: ?? Digital breast tomosynthesis is performed in both the craniocaudal and ?? mediolateral oblique views along with computer-aided detection (CAD). ?? Synthesized 2D images are generated from the tomosynthesis. ? FINDINGS: ?? There are scattered areas of fibroglandular density (ACR BI-RADS breast ?? composition Category b). ? There are no significant masses, abnormal calcifications, or other ?? abnormalities. ? There are coarse calcifications in the superior aspect of the right ?? breast. ? There are 2 tissue markers in the left breast from prior percutaneous ?? biopsy. ? There are architectural changes in the upper outer quadrant of the left ?? breast from prior surgery for benign disease. ? MM/MM tomosynthesis screening BI ?? IMPRESSION: ?? No mammographic evidence of malignancy. ? ASSESSMENT: ? BI-RADS BI-RADS 2 - Benign Findings ? RECOMMENDATION: ?? Routine annual mammography screening. ? 1 year F/U ? This examination should not preclude the clinical evaluation of a ?? suspicious palpable abnormality. ? This patient's information was entered into a reminder system with a ?? target due date for their next mammogram. ? Dictated By: ?Maine Van MD ? Signed By: ?<Electronically signed by Maine Van MD in OV> ? 05/09/23 0909 ? DD/ 1312 ? TD/TT: ? Orthotic Fitter: ? Procedure Note Ivan, Image - 05/09/2023 [facility] [address] [place] [address] Mammography Report Signed Patient: Dyan Mart LMR#: [id number] : 6Acct:[id number] Age/Sex: 67 / FADM Date: 04/15/23 Loc: HO.MAMMO Attending Dr: Chun Álvarez MD Ordering Physician: Chun Álvarez MDResults: 2Benig n Findings Date of Service: 04/15/23Follow Up: 1 Year From Orig inal Mammogram Procedure(s): MM tomosynthesis screening BI Accession Number(s): [id number] cc: Dominique Alcaraz MD; Chun Álvarez MD EXAMINATION: MM SCREENING DIGITAL BREAST TOMOSYNTHESIS, BILATERAL CLINICAL INFORMATION: Screening. Asymptomatic. COMPARISON: Mammography: This study is compared with prior exams dating back to 2018. TECHNIQUE: Digital breast tomosynthesis is performed in both the craniocaudal and mediolateral oblique views along with computer-aided detection (CAD). Synthesized 2D images are generated from the tomosynthesis. FINDINGS: There are scattered areas of fibroglandular density (ACR BI-RADS breast composition Category b). There are no significant masses, abnormal calcifications, or other abnormalities. There are coarse calcifications in the superior aspect of the right breast. There are 2 tissue markers in the left breast from prior percutaneous biopsy. There are architectural changes in the upper outer quadrant of the left breast from prior surgery for benign disease. MM/MM tomosynthesis screening BI IMPRESSION: No mammographic evidence of malignancy. ASSESSMENT: BI-RADS BI-RADS 2 - Benign Findings RECOMMENDATION: Routine annual mammography screening. 1 year F/U This examination should not preclude the clinical evaluation of a suspicious palpable abnormality. This patient's information was entered into a reminder system with a target due date for their next mammogram. Dictated By: Maine Van MD Signed By: <Electronically signed by Maine Van MD in OV> 05/09/23 0909 DD/ 1312 TD/TT: Orthotic Fitter: [facility] External Provider IMG BI PROCEDURES Edited Result - Final * Diabetes Eye Exam (06/18/2022) Eye Exam Normal Normal Historical Provider HEALTH MAINTENANCE Final Result * Colonoscopy (09/03/2018 12:11 PM EDT) Historical Provider HEALTH MAINTENANCE Final Result from Last 3 Months or Most Recently Relevant to Health Maintenance Insurance [facility] Advance Directives Documents on File Type Date Recorded 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
--- OUTSIDE RECORDS SUMMARY | 2024-04-19 11:32 | XMS_ITS | Encounter Summary ---
Author Organization [facility] Address [address] 7[address] [place] [address] Care Team Providers Care Montessori Program Director Name Role Phone Dominique Alcaraz MD Primary Care Provider + [phone] Martina Wesley PharmD Unavailable Encounter Details Date Type Department Care Team (Late Contact Info) Description 10/30/[address] [address] Dominique Alcaraz MD [address] [place] [phone] Social History Tobacco Use Types Packs/Day Years Used Date Smoking Tobacco: Never Smokeless Tobacco: Never Depression Answer Date Recorded Patient Health Questionnaire-9 Score 0 07/08/2022 Depression Answer Date Recorded Patient Health Questionnaire-2 Score 0 07/08/2022 Comments Unknown Sex and Gender Information Value Date Recorded Sex Assigned at Female 12/29/2021 10:18 AM EDT Legal Sex Female 10:18 AM EDT Gender Identity Female 12/29/2021 10:18 AM EDT Sexual Orientation Straight 12/29/2021 10 :18 AM EDT documented as of this encounter Plan of Treatment Upcoming Encounters Date Type Department Care Team (Late Contact Info) Description 05/02/2024 1:00 PM EST Office Visit [facility] [address] [place] [phone] Simran Crooks [address] [place], [place] [phone] 07/25/2024 10:00 AM EDT Medication Management [facility] [address] [place] [address] Martina Wesley PharmD [address] [place] [address] documented as of this encounter Goals Goal Patient Goal Type Associated Problems Recent Progress Patient-Stated? Author Blood Pressure < 140/90 Blood Pressure 130/62(2023 10:17 AM EST) No Martina Tiwari PharmD Hemoglobin A1c < 7 Result Component 6.8( 10:04 AM EST) No Martina Tiwari PharmD documented as of this encounter Visit Diagnoses Not on filedocumented in this encounter Additional Health Concerns Assessment Noted Time PHQ-9 Depression Total Score: 0 07/09/19 23 3:56 PM EDT documented as of this encounter Care Teams Montessori Program Director Relationship Specialty Start Date End Date Dominique Alcaraz MD [address] [place] [phone] PCP - General Family Medicine 12/20/12 Martina Wesley PharmD [address] [place] [phone] Pharmacist Internal Medicine 03/12/22 documented as of this encounter
--- OUTSIDE RECORDS SUMMARY | 2024-04-19 11:32 | XMS_ITS | Clinical Summary ---
Author Organization [facility], Address [address] [place] [address] [place] [address] Phone Care Team Providers Care Comprehensive Advisor Name Role Phone Dominique Alcaraz MD Primary Care Provider U navailable Allergies Active Allergy Reactions Criticality Noted Date Comments Lisinopril Shortness of breath,Palpitations High 08/2019 Medications warfarin (COUMADIN) 5 MG tablet TAKE 1/2 TABLET BY MOUTH WEDNESDAY AND WEDNESDAY. TAKE 1 TABLET ALL OTHER DAYS 0 Active metoprolol tartrate (LOPRESSOR) 50 MG tablet TAKE 1 TABLET BY MOUTH THREE TIMES DAILY 0 Active atorvastatin (LIPITOR) 40 MG tablet Take 40 mg by mouth at bed time 0 Active aspirin EC 81 MG EC tablet Take 81 mg by mouth 1 (one) time each day Active omega-3 (FISH OIL) 1000 MG capsule Take by mouth 1 (one) time each day Active meclizine (ANTIVERT) 12.5 MG tablet Take 12.5 mg by mouth 3 (three) times a day if needed for dizziness Active acetaminophen (TYLENOL) 500 MG tablet Take by mouth every 6 (six) hours if needed for mild pain Active telmisartan (MICARDIS) 40 MG tablet Take 1 tablet (40 mg total) by mouth daily 90 tablet 3 1 Active Vitamin D High Potency 25 MCG (1000 UT) capsule Take by mouth 1 (one) time each day 2 Active amLODIPine (NORVASC) 10 MG tablet Take 10 mg by mouth 1 (one) time each day 3 Active metFORMIN XR (GLUCOPHAGE-XR) 500 MG 24 hr tablet Take 500 mg by mouth 1 (one) time each day 3 Active Ferrous Sulfate (Iron) 325 (65 Fe) MG tablet Take 1 tablet by mouth 1 (one) time each day with breakfast 30 tablet 11 4 Active Empagliflozin (Jardiance) 10 MG tablet Take 25 mg by mouth 1 (one) time each day 30 tablet 11 4 10/27/19 25 Active Active Problems Problem Noted Date Diagnosed Date Type 2 diabetes mellitus 11/04/2021 Chronic kidney disease, stage 2 (mild) 0 Atrophy of kidney 07/31/2019 Stage 3a chronic kidney disease 07/30/2019 Overview (03/04/2020): Update for Diagnosis Load Proteinuria 07/30/2019 Renal disorder due to type 2 diabetes mellitus 0 07/30/2019 Hypertension Resolved Problems Problem Noted Date Diagnosed Date Resolved Date Hyperlipidemia 02/05/2020 10/12/2020 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/2019 10/12/2020 Multiple renal cysts 07/30/2019 021 Immunizations Name Administration Dates Next Due H1N1 Inj 11/19/2015 Hepatitis B 02/04/2022 Influenza Split 11/17/2011 Influenza, MDCK, PF, Quadrivalent 01/11/2021,11/2019 Influenza, Quadrivalent, Preservative Free 12/08,02/06/2019 Influenza, Quadrivalent, With Preservative 01/27,03/19/2015 Influenza, Unspecified 12/04/2021,01/04/2014,07/2010 Spreetales SARS-COV-2 05/15/2020 Pfizer SARS-COV-2 01/31/2021 Pneumococcal Conjugate 13-Valent 01/04/2014 Pneumococcal Polysaccharide 10/11/2006 SARS-CoV-2, Unspecified 03/12/2022 Shingrix 06/05/2021,04/03/2021 Td 10/11/2006 Tdap 01/04/2014 Family History Relation Status Comments Father Mother Social History Tobacco Use Types Packs/Day Years Used Date Smoking Tobacco: Never Alcohol Use Standard Drinks/Week Comments No 0 (1 standard drink = 0.6 oz pur e alcohol) Comments Unknown Sex and Gender Information Value Date Recorded Sex Assigned at Not on file Legal Sex Female 4:33 PM EST Gender Identity Not on file Sexual Orientation Not on file Last Filed Vital Signs Vital Sign Reading Time Taken Comments Blood Pressure 132/74 10/27/2023 2:11 PM EDT Pulse 68 12/19/2018 12:00 PM EDT Temperature - - Respiratory Rate 16 12/19/2018 12:00 PM EDT Oxygen Saturation - - Inhaled Oxygen Concentration - - Weight 62.2 kg (137 lb 3.2 oz) 10/27/2023 2:11 P M EDT Height 157.5 cm (5' 2 ) 10/27/2023 2:11 PM EDT Body Mass Index 25.09 10/27/2023 2:11 PM EDT Plan of Treatment Upcoming Encounters Date Type Department Care Team (Late st Contact Info) Description 07/05/2024 1:45 PM EDT Office [facility] [address] [place] [address] Refugio Huston MD [address] [place] [address] Health Maintenance Due Date Last Done Comments Breast Cancer Screening 1955 Colorectal Cancer Screening: Annual FOBT 12/24/2004 Colorectal Cancer Screening: Colonoscopy 12/24/2004 Colorectal Cancer Screening: Sigmoidoscopy 12/24/2004 Diabetes: Ophthalmology Exam 05/22/2019 Diabetes: Pedal Pulse Checked 05/22/2019 Diabetes: Sensory Foot Exam 05/22/2019 Diabetes: Visual Foot Exam 05/22/2019 Diabetes: Hemoglobin A1C 09/08/2023 06/09/2023, 04/0 08/2022 Influenza Vaccine (#1) 2023 2, 01/11/2021, 12/09/2019, Additional history exists Pneumococcal Vaccine: 65+ Years Completed 11/04/2022, 01/04/2014, 10/11/2006 Hepatitis B Vaccine Aged Out 05/05/2023, 11/04/2022, 02/04/2022 No longer eligible based on patient's age to complete this topic Insurance MEDICAID [place] [facility] DUAL SNP ([id number]) Care Teams Comprehensive Advisor Relationship Specialty Start Date End Date Kieran, Dominique Davies MD PCP - General 01/03/19
--- OUTSIDE RECORDS SUMMARY | 2024-04-19 11:32 | XMS_ITS | Encounter Summary ---
Author Organization [facility] Address [address] [place] [address] Phone Care Team Providers Care Survey Director Name Role Phone Dominique Alcaraz MD Primary Care Provider U patricia Encounter Details Date Type Department Care Team (Late st Contact Info) Description 11/04/2021 Documentation Only [facility] [address] [place] [address] Cesia Perry PA Social History [...] Visit [facility] [address] [place] [address] Refugio Huston MD [address] [place] [address] [place] [address] documented as of this encounter Visit Diagnoses Not on filedocumented in this encounter Care Teams Survey Director Relationship Specialty Start Date End Date Dominique Alcaraz MD PCP - General 01/03/19 documented as of this encounter
--- OUTSIDE RECORDS SUMMARY | 2024-04-19 11:32 | XMS_ITS | Encounter Summary ---
Author Organization [facility] Address [address] [place] [address] Care Team Providers Care Sheet Writer Name Role Phone Dominique Alcaraz MD Primary Care Provider + [phone] Martina Wesley PharmD Unavailable [phone] Reason for Visit * Reason Comments Med Refill Encounter Details Date Type Department Care Team (Late st Contact Info) Description 03/17/[address] [facility] [address] [place] [address] Dominique Alcaraz MD [address] [place], [place] [phone] Vitamin D deficiency; Stage 2 chronic kidney disease Social History Tobacco Use Types Packs/Day Years Used Date Smoking Tobacco: Never Smokeless Tobacco: Never Depression Answer Date Recorded Patient Health Questionnaire-9 Score 0 07/08/2022 Housing Stability Answer Date Recorded What is your housing situation today? I have jase il 12/17/[address] you li ve. Do you have problems with any of the following? None of the above 12/17/2022 Food Insecurity Answer Date Recorded Within the past 12 months, y ou worried that your food would run out before you got money to buy more: Never True 12/17/2022 Within the past 12 months,th e food you bought just didn't last and you didn't have enough money to get more: Never True Transportation Answer Date Recorded In the past 12 months, has l ack of transportation kept you from medical appts, meetings, work or from getting things needed for daily living? No 12/17/2022 Utilities Answer Date Recorded In the past 12 months, has t he electric, gas, oil or water company threatened to shut off services in your home? No 12/17/2022 Depression Answer Date Recorded Patient Health Questionnaire-2 [...] Description 05/02/2024 1:00 PM EST Office Visit [facility] [address] [place], [place] [phone] Simran Crooks [address] [place], [place] [phone] 07/25/2024 10:00 AM EDT Medication Management [facility] [address] [place] [address] JamarisMartina Larsen, PharmD [address] [place] [address] documented as of this encounter Goals Goal Patient Goal Type Associated Problems Recent Progress Patient-Stated? Author Blood Pressure < 140/90 Blood Pressure 130/62(2023 10:17 AM EST) No Jamaris-Poonaml e, Martina, PharmD Hemoglobin A1c < 7 Result Component 6.8( 10:04 AM EST) No Jamaris-Gambl e, Martina, PharmD documented as of this encounter Visit Diagnoses Diagnosis Vitamin D deficiency Stage 2 chronic kidney disease documented in this encounter Additional Health Concerns Assessment Noted Time PHQ-9 Depression Total Score: 0 07/09/19 23 3:56 PM EDT documented as of this encounter Care Teams Sheet Writer Relationship Specialty Start Date End Date Dominique Alcaraz MD [address] [place] [phone] PCP - General Family Medicine 12/20/12 JamariMartina Jane, PharmD [address] [place] [address] Pharmacist Internal Medicine 03/12/22 documented as of this encounter
--- OUTSIDE RECORDS SUMMARY | 2024-04-19 11:32 | XMS_ITS | Encounter Summary ---
Author Organization [facility], Address [address] [place] [address] Phone Care Team Providers Care Search Manager Name Role Phone Dominique Alcaraz MD Primary Care Provider U johanneailfarzana Reason for Visit * Reason Comments Med Refill Encounter Details Date Type Department Care Team ([facility] Contact Info) Description 02/18/2021 Refill [facility] [address] [place] [phone] Lyle Blancas MD [address] [place] [address] Social History Tobacco Use Types Packs/Day Years [...] Upcoming Encounters Date Type Department Care Team ([facility] Contact Info) Description 07/05/2024 1:45 PM EDT Office Visit [facility], [address] [place] [address] Refugio Huston MD [address] [place] [address] documented as of this encounter Visit Diagnoses Not on filedocumented in this encounter Care Teams Search Manager Relationship Specialty Start Date End Date Dominique Alcaraz MD PCP - General 01/03/19 documented as of this encounter
--- OUTSIDE RECORDS SUMMARY | 2024-04-19 11:32 | XMS_ITS | Encounter Summary ---
Author Organization [facility] Address [address] 7t [place] [address] Care Team Providers Care Division Controller Name Role Phone Dominique Alcaraz MD Primary Care Provider + [phone] Martina Wesley PharmD Unavailable +1- [phone] Encounter Details Date Type Department Care Team (Late st Contact Info) Description 12/08/2023 Orders Only [facility] [address] [place] [address] Provider, MD Christiano Social History Tobacco Use Types Packs/Day Years [...] 05/02/2024 1:00 PM EST Office Visit [facility] [address] [place] [address] Simón Crooksine [address] [place] [address] 07/25/2024 10:00 AM EDT Medication Management [facility] [address] [place] [address] Piers-Still, Martina, PharmD [address] [place] [address] documented as of this encounter Goals Goal Patient Goal Type Associated Problems Recent Progress Patient-Stated? Author Blood Pressure < 140/90 Blood Pressure 130/62(2023 10:17 AM EST) No Piers-Gambl e, Martina, PharmD Hemoglobin A1c < 7 Result Component 6.8( 10:04 AM EST) No Piers-Gambl e, Martina, PharmD documented as of this encounter Procedures Procedure Name Priority Date/Time Associated Diagnosis Comments TRANSTHORACIC ECHO (TTE) COMPLETE Routine 11/30/2023 3:34 PM EDT documented in this encounter Results * Transthoracic echo (TTE) complete (11/30/2023 3:34 PM EDT) us Historical Provider CV ECHO PROCEDURES Final Result documented in this encounter Visit Diagnoses Not on filedocumented in this encounter Additional Health Concerns Assessment Noted Time PHQ-9 Depression Total Score: 8 11/03/19 24 9:00 AM EDT documented as of this encounter Care Teams Division Controller Relationship Specialty Start Date End Date Dominique Alcaraz MD [address] [place] [address] PCP - General Family Medicine 12/20/12 Martina Wesley, Irma [address] [place] [address] Pharmacist Internal Medicine 03/12/22 documented as of this encounter
--- OUTSIDE RECORDS SUMMARY | 2024-04-19 11:32 | XMS_ITS | Encounter Summary ---
Author Organization [facility] Address [address] [place] [address] Phone Care Team Providers Care Assembly Loader Name Role Phone Dominique Alcaraz MD Primary Care Provider Brent gomez Encounter Details Date Type Department Care Team (Late Contact Info) Description 10/17/2021 Orders Only [facility] [address] [place] [address] Lyle Blancas MD [address] [place] [address] [place] [address] Stage 3a chronic kidney disease (HCC) (Primary Dx); Renal disorder due to type 2 diabetes mellitus <Other diabetic kidney complication> (HCC) Social History Tobacco Use Types Packs/Day Years [...] Visit [facility] [address] [place] [address] Refugio Huston MD [address] [place] [address] [place] [address] Scheduled Orders Name Type Priority Associated Diagnoses Orde r Schedule CBC and differential Lab Routine Stage 3a chronic kidney disease (HCC) Expected: 10/17/2021, Expires: 11/17/2022 Hemoglobin A1c Lab Routine Stage 3a chronic kidney disease (HCC) Renal disorder due to type 2 diabetes mellitus <Other diabetic kidney complication> (HCC) Expected: 10/17/2021, Expires: 11/17/2022 Iron Panel (Fe, TIBC, TSAT) Lab Routine Stage 3a chronic kidney disease (HCC) Expected: 10/17/2021, Expires: 11/17/2022 PTH, intact Lab Routine Stage 3a chronic kidney disease (HCC) Expected: 10/17/2021, Expires: 11/17/2022 Renal function panel Lab Routine Stage 3a chronic kidney disease (HCC) Expected: 10/17/2021, Expires: 11/17/2022 Urinalysis with microscopic Lab Routine Stage 3a chronic kidney disease (HCC) Expected: 10/17/2021, Expires: 11/17/2022 Vitamin D 25 hydroxy Lab Routine Stage 3a chronic kidney disease (HCC) Expected: 10/17/2021, Expires: 11/17/2022 documented as of this encounter Visit Diagnoses Diagnosis Stage 3a chronic kidney disease (HCC)- Primary Renal disorder due to type 2 diabetes mellitus <Other diabetic kidney complication> (HCC) documented in this encounter Care Teams Assembly Loader Relationship Specialty Start Date End Date Dominique Alcaraz MD PCP - General 01/03/19 documented as of this encounter
--- OUTSIDE RECORDS SUMMARY | 2024-04-19 11:32 | XMS_ITS | Encounter Summary ---
Author Organization [facility] Address [address] [facility] 7t [place] [address] Care Team Providers Care Consulting Property Manager Name Role Phone Dominique Alcaraz MD Primary Care Provider + [phone] Martina Wesley PharmD Unavailable +1- [phone] Reason for Visit * Reason Comments Med Refill Encounter Details Date Type Department Care Team (Late st Contact Info) Description 03/31/2024 Refill [facility] [address] [place] [address] Dominique Alcaraz MD [address] [place], [place] [phone] Stage 2 chronic kidney disease; Vitamin D deficiency Social History Tobacco Use Types Packs/Day Years [...] Description 05/02/2024 1:00 PM EST Office Visit [facility] [address] [place] [address] Daksha Simran [address] [place] [address] 07/25/2024 10:00 AM EDT Medication Management [facility] [address] [place] [address] Martina Wesley, PharmD [address] [place] [address] documented as of this encounter Goals Goal Patient Goal Type Associated Problems Recent Progress Patient-Stated? Author Blood Pressure < 140/90 Blood Pressure 130/62(2023 10:17 AM EST) No Jamaris-Martina Jaffe, PharmD Hemoglobin A1c < 7 Result Component 6.8( 10:04 AM EST) No JamarisMartina Levine, PharmD documented as of this encounter Visit Diagnoses Diagnosis Stage 2 chronic kidney disease Vitamin D deficiency documented in this encounter Additional Health Concerns Assessment Noted Time PHQ-9 Depression Total Score: 8 11/03/19 24 9:00 AM EDT documented as of this encounter Care Teams Consulting Property Manager Relationship Specialty Start Date End Date Dominique Alcaraz MD [address] [place] [address] PCP - General Family Medicine 12/20/12 Martina Wesley, Irma [address] [place] [address] Pharmacist Internal Medicine 03/12/22 documented as of this encounter
--- OUTSIDE RECORDS SUMMARY | 2024-04-19 11:32 | XMS_ITS | Encounter Summary ---
Author Organization [facility] Address [address] 7t [place] [address] Care Team Providers Care Template Worker Name Role Phone Dominique Alcaraz MD Primary Care Provider +- [phone] Martina Wesley PharmD Unavailable +1- [phone] Reason for Visit * Reason Onset Date Comments Pre op 09/23/2023 Encounter Details Date Type Department Care Team (Late st Contact Info) Description 09/23/2023 Telephone [facility] [address] [place] [address] Dominique Alcaraz MD [address] [place], [place] [phone] Pre op Social History Tobacco Use Types Packs/Day Years Used Date Smoking Tobacco: Never Smokeless Tobacco: Never Depression Answer Date Recorded Patient Health Questionnaire-9 Score 0 07/08/2022 Housing Stability Answer Date Recorded What is your housing situation today? I have jase li 12/17/[address] you li [...] encounter Miscellaneous Notes * Telephone Encounter - Leo Vasquez - 09/24/2023 9:34 AM EDT TC placed to pt for scheduling of Pre-op visit . Agreed to 11/[address] Alcaraz . Fax sent to surgeons office with date and time of visit . Date of Surgery: right eye 11/15/23 and left eye 11/28 Surgical procedure being done: cataract surgery both eyes Type of anesthesia: local anesthesia Lab needed: No EKG: No Surgeon's name: mercedes mohan Facility name: [address], [place] [address] Surgeon's office number: [phone] Surgeon's office fax number: [phone] Contact name (person you spoke with): [place] Last office note from surgeon requested: No * Telephone Encounter - Bharti Fregoso - 09/23/2023 12:23 PM EDT Date of Surgery: right eye 11/15/23 and left eye 11/28 Surgical procedure being done: cataract surgery both eyes Type of anesthesia: local anesthesia Lab needed: No EKG: No Surgeon's name: mercedes mohan Facility name: [address], [place] [address] Surgeon's office number: [phone] Surgeon's office fax number: [phone] Contact name (person you spoke with): [place] Last office note from surgeon requested: No documented in this encounter Plan of Treatment Upcoming Encounters Date Type Department Care Team (Late st Contact Info) Description 05/02/2024 1:00 PM EST Office Visit [facility] [address] [place], [place] [phone] DakshaSimran [address] [place], [place] [phone] 07/25/2024 10:00 AM EDT Medication Management [facility] [address] [place], [place] [phone] JamarisMartina Larsen, PharmD [address] [place], [place] [phone] documented as of this encounter Goals Goal Patient Goal Type Associated Problems Recent Progress Patient-Stated? Author Blood Pressure < 140/90 Blood Pressure 130/62(2023 10:17 AM EST) No Jamaris-Maria Isabel Jaffesa, PharmD Hemoglobin A1c < 7 Result Component 6.8( 10:04 AM EST) No Jamaris-Poonaml marj, Martina, PharmD documented as of this encounter Visit Diagnoses Not on filedocumented in this encounter Additional Health Concerns Assessment Noted Time PHQ-9 Depression Total Score: 0 07/09/19 3:56 PM EDT documented as of this encounter Care Teams Template Worker Relationship Specialty Start Date End Date Dominique Alcaraz MD [address] [place], [place] [phone] PCP - General Family Medicine 12/20/12 JamarisMartina Larsen, PharmD [address] [place], [place] [phone] Pharmacist Internal Medicine 03/12/22 documented as of this encounter
--- OUTSIDE RECORDS SUMMARY | 2024-04-19 11:32 | XMS_ITS | Encounter Summary ---
Author Organization [facility] Address [address] [facility] 7t [place] [address] Care Team Providers Care Waiter/Waitress Informal Name Role Phone Dominique Alcaraz MD Primary Care Provider + [phone] Martina Wesley PharmD Unavailable +1- [phone] Reason for Visit * Reason Comments Med Refill Encounter Details Date Type Department Care Team (Late st Contact Info) Description 05/07/2023 Refill [facility] [address] [place] [address] Dominique Alcaraz MD [address] [place], [place] [phone] Type 2 diabetes mellitus without complication, 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 senior care insulin use ([facility]) Social History Tobacco Use Types Packs/Day Years [...] Description 05/02/2024 1:00 PM EST Office Visit [facility] [address] [place] [address] Simran Crooks [address] [place], [place] [phone] 07/25/2024 10:00 AM EDT Medication Management [facility] [address] [place] [address] Jamaris-Martina Still, PharmD [address] [place] [address] documented as of this encounter Goals Goal Patient Goal Type Associated Problems Recent Progress Patient-Stated? Author Blood Pressure < 140/90 Blood Pressure 130/62(2023 10:17 AM EST) No Jamaris-Poonaml e, Martina, PharmD Hemoglobin A1c < 7 Result Component 6.8( 10:04 AM EST) No Jamaris-Gambl e, Martina, PharmD documented as of this encounter Visit Diagnoses Diagnosis Type 2 diabetes mellitus without complication, 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 salvage determiner insulin use ([facility]) documented in this encounter Additional Health Concerns Assessment Noted Time PHQ-9 Depression Total Score: 0 07/09/19 23 3:56 PM EDT documented as of this encounter Care Teams Waiter/Waitress Informal Relationship Specialty Start Date End Date Dominique Alcaraz MD [address] [place] [address] PCP - General Family Medicine 12/20/12 Martina Wesley, Irma [address] [place] [address] Pharmacist Internal Medicine 03/12/22 documented as of this encounter
[2024-04-19 15:59] LABS: Prothrombin Time Whole Bld POC 33.1 sec (11.1-13.5); ~PT, ~INR - Anti Coag Clinic 2.8 (0.9-1.1)
== END 2024-04-19 11:15 | disposition home or self-care (01) ==
LOC: HO.ACS 10:46
PROVIDERS: PCP Family Medicine; Visit Provider Internal Medicine
DX: Z79.01 Long term (current) use of anticoagulants (principal)

== ENCOUNTER → 2024-04-19 10:46 | Outpatient (BNVA) | payer OTHER, SELFPAY | PROVIDERS: PCP Family Medicine; Visit Provider Internal Medicine | DX: Z95.2 Presence of prosthetic heart valve (principal); Z79.01 Long term (current) use of anticoagulants; Z51.81 Encounter for therapeutic drug level monitoring | CPT/HCPCS: 85610; 99211 ==

== ENCOUNTER 2024-04-20 13:00 | Outpatient (REF) | payer OTHER, SELFPAY ==
--- OUTSIDE RECORDS SUMMARY | 2024-04-20 13:56 | XMS_ITS | Encounter Summary ---
Author Organization [facility] Address [address] [place] [address] Phone Care Team Providers Care Barber Instructor Name Role Phone Dominique Alcaraz MD Primary Care Provider Brent gomez Encounter Details Date Type Department Care Team (Late Contact Info) Description 10/27/2023 Documentation Only [facility] [address] [place] [address] Michelle Linares [address] [place] [address] Social History Tobacco Use Types [...] Visit [facility] [address] [place] [address] Refugio Huston MD [address] [place] [address] [place] [address] documented as of this encounter Visit Diagnoses Not on filedocumented in this encounter Care Teams Barber Instructor Relationship Specialty Start Date End Date Dominique Alcaraz MD PCP - General 01/03/19 documented as of this encounter
--- OUTSIDE RECORDS SUMMARY | 2024-04-20 13:56 | XMS_ITS | Encounter Summary ---
Author Organization [facility] Address [address] [facility] 7t [place] [address] Care Team Providers Care Expeller Operator Name Role Phone Dominique Alcaraz MD Primary Care Provider + [phone] Martina Wesley PharmD Unavailable +1- [phone] Encounter Details Date Type Department Care Team (Late st Contact Info) Description 12/08/2023 Orders Only [facility] [address] [place] [address] Provider, MD Christiano Social History Tobacco Use [...] Description 05/02/2024 1:00 PM EST Office Visit [facility] [address] [place] [address] Simón Crooksine [address] [place] [address] 07/25/2024 10:00 AM EDT Medication Management [facility] [address] [place] [address] Piers-Still, Martina, PharmD [address] [place] [address] documented as of this encounter Goals Goal [...] documented as of this encounter Care Teams Expeller Operator Relationship Specialty Start Date End Date Dominique Alcaraz MD [address] [place] [address] PCP - General Family Medicine 12/20/12 Martina Wesley, Irma [address] [place] [address] Pharmacist Internal Medicine 03/12/22 documented as of this encounter
--- OUTSIDE RECORDS SUMMARY | 2024-04-20 13:56 | XMS_ITS | Encounter Summary ---
Author Organization [facility] Address [address] [facility] 7t [place] [address] Care Team Providers Care Chief Clerk Shelter Name Role Phone Dominique Alcaraz MD Primary Care Provider + [phone] Martina Wesely PharmD Unavailable +1- [phone] Reason for Visit * Reason Comments Med Refill Encounter Details Date Type Department Care Team (Late st Contact Info) Description 05/07/2023 Refill [facility] [address] [place] [address] Dominique Alcaraz MD [address] [place], [place] [phone] Type 2 diabetes mellitus without complication, 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 mcc insulin use ([facility]) Social History Tobacco Use Types Packs/Day Years [...] [facility] [address] [place] [address] Simran Crooks [address] [place], [place] [phone] 07/25/2024 10:00 AM EDT Medication Management [facility] [address] [place] [address] Jamaris-Martina Still, PharmD [address] [place] [address] documented as of this encounter Goals Goal [...] 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 continuous churn buttermaker insulin use ([facility]) documented in this encounter Additional Health Concerns Assessment Noted Time PHQ-9 Depression Total Score: 0 07/09/19 23 3:56 PM EDT documented as of this encounter Care Teams Chief Clerk Shelter Relationship Specialty Start Date End Date Dominique Alcaraz MD [address] [place] [address] PCP - General Family Medicine 12/20/12 Martina Wesley, Irma [address] [place] [address] Pharmacist Internal Medicine 03/12/22 documented as of this encounter
--- OUTSIDE RECORDS SUMMARY | 2024-04-20 13:56 | XMS_ITS | Encounter Summary ---
Author Organization [facility] Address [address] [facility] 7t [place] [address] Care Team Providers Care Division Traffic Superintendent Name Role Phone Dominique Alcaraz MD Primary Care Provider + [phone] Martina Wesley PharmD Unavailable Encounter Details Date Type Department Care Team (Late Contact Info) Description 10/30/[address] [address] Dominique Alcaraz MD [address] [place] [address] Social History Tobacco Use Types Packs/Day Years [...] Description 05/02/2024 1:00 PM EST Office Visit [facility] D[facility] [address] [place] [address] Simran Crooks [address] [place], [place] [phone] 07/25/2024 10:00 AM EDT Medication Management [facility] [address] [place] [address] Martina Wesley PharmD [address] [place] [address] documented as of this encounter Goals Goal [...] as of this encounter Care Teams Division Traffic Superintendent Relationship Specialty Start Date End Date Dominique Alcaraz MD [address] [place] [address] PCP - General Family Medicine 12/20/12 Martina Wesley PharmD [address] [place] [address] Pharmacist Internal Medicine 03/12/22 documented as of this encounter
--- OUTSIDE RECORDS SUMMARY | 2024-04-20 13:56 | XMS_ITS | Encounter Summary ---
Author Organization [facility] Address [address] [place] [address] Phone Care Team Providers Care Information Technology Project Manager Name Role Phone Dominique Alcaraz MD Primary Care Provider U patricia Encounter Details Date Type Department Care Team (Late st Contact Info) Description 03/12/2023 Documentation Only [facility] [address] [place] [address] Cesia Perry PA Social History [...] Visit [facility] [address] [place] [address] Refugio Huston MD [address] [place] [address] Dr. [place] [address] documented as of this encounter Visit Diagnoses Not on filedocumented in this encounter Care Teams Information Technology Project Manager Relationship Specialty Start Date End Date Dominique Alcaraz MD PCP - General 01/03/19 documented as of this encounter
--- OUTSIDE RECORDS SUMMARY | 2024-04-20 13:56 | XMS_ITS | Encounter Summary ---
Author Organization [facility] [place], Address [address] [place] [address] Phone Care Team Providers Care Sleeve Bottom Feller Name Role Phone Dominique Alcaraz MD Primary Care Provider U johanneailfarzana Reason for Visit * Reason Comments Med Refill Encounter Details Date Type Department Care Team ([facility] Contact Info) Description 02/18/2021 Refill [facility] [address] [place] [phone] Lyle Blancas MD [address] [facility] [place] [address] Social History Tobacco Use Types [...] Upcoming Encounters Date Type Department Care Team ([facility] Contact Info) Description 07/05/2024 1:45 PM EDT Office Visit [facility], [address] [place] [address] Refugio Huston MD [address] [facility] [place] [address] documented as of this encounter Visit Diagnoses Not on filedocumented in this encounter Care Teams Sleeve Bottom Feller Relationship Specialty Start Date End Date Dominique Alcaraz MD PCP - General 01/03/19 documented as of this encounter
--- OUTSIDE RECORDS SUMMARY | 2024-04-20 13:56 | XMS_ITS | Encounter Summary ---
Author Organization [facility] Address [address] [facility] 7t [place] [address] Care Team Providers Care Bat Lathe Operator Name Role Phone Dominique Alcaraz MD Primary Care Provider + [phone] Martina Wesley PharmD Unavailable +1- [phone] Reason for Visit * Reason Comments Med Refill Encounter Details Date Type Department Care Team (Late st Contact Info) Description 03/17/2023 Refill [facility]INE [address] [place] [address] Dominique Alcaraz MD [address] [place], [place] [phone] Vitamin D deficiency; Stage 2 chronic kidney [...] Description 05/02/2024 1:00 PM EST Office Visit [facility] [address] [place], [place] [phone] Simran Crooks [address] [place], [place] [phone] 07/25/2024 10:00 AM EDT Medication Management [facility] MED[facility]INE [address] [place] [address] JamarisMartina Larsen, PharmD [address] [place] [address] documented as of this encounter Goals Goal [...] documented as of this encounter Care Teams Bat Lathe Operator Relationship Specialty Start Date End Date Dominique Alcaraz MD [address] [place] [address] PCP - General Family Medicine 12/20/12 JamariMartina Jane, PharmD [address] [place] [address] Pharmacist Internal Medicine 03/12/22 documented as of this encounter
--- OUTSIDE RECORDS SUMMARY | 2024-04-20 13:56 | XMS_ITS | Encounter Summary ---
Author Organization [employer] Address [address] [facility] 7t [place] [address] Care Team Providers Care Nursing Program Manager Name Role Phone Dominique Alcaraz MD Primary Care Provider + [phone] Martina Wesley PharmD Unavailable +1- [phone] Encounter Details Date Type Department Care Team (Late st Contact Info) Description 04/19/2024 Orders Only GENERIC EXTERNAL DATA DEPARTMENT Provider, Generic External Data Social History Tobacco Use Types Packs/Day Years [...] Description 05/02/2024 1:00 PM EST Office Visit [facility] [address] [place] [address] Simran Crooks 91 [place] [address] 07/25/2024 10:00 AM EDT Medication Management [facility] [address] [place] [address] JamarisMartina Larsen, PharmD [address] [place] [address] documented as of this encounter Goals Goal Patient Goal Type Associated Problems Recent Progress Patient-Stated? Author Blood Pressure < 140/90 Blood Pressure 130/62(2023 10:17 AM EST) No Piers-Poonaml marj, Martina, PharmD Hemoglobin A1c < 7 Result Component 6.8( 10:04 AM EST) No Jamaris-Martina aJffe, PharmD documented as of this encounter Procedures Procedure Name Priority Date/Time Associated Diagnosis Comments PROTHROMBIN TIME WHOLE BLD POC Routine 04/19/2024 10:51 AM EST ~PT, ~INR - ANTI COAG CLINIC Routine 04/19/2024 10:51 AM EST documented in this encounter Results * (ABNORMAL) PROTHROMBIN TIME WHOLE BLD POC (04/19/2024 10:51 AM EST) Protime 33.1(H) 11.1 - 13.5 sec [facility] 04/19/2024 10:5 1 AM EST 04/19/2024 3:58 PM EST us Generic External Data Provider LAB BLOOD ORDERAB LES Final Result Performing Organization Address [facility] Co de Phone Number [facility] [address] [place] [address] [phone] * (ABNORMAL) ~PT, ~INR - ANTI COAG CLINIC (04/19/2024 10:51 AM EST) Prothrombin Time INR 2.8(H) 0.9 - 1.1 [facility] Comment:METER #: [id number] TERNATIONAL NORMALIZED RATIO (INR) REFERENCE RANGES Reference RangeFor patients not on anticoagulant therapy: 0.9 - 1.1INR ranges for oral anticoagulanttherapy:For prevention and treatment of venous thrombosis and pulmonary embolism: 2.0 - 3.0For acute myocardial infarction with aspirin therapy: 2.0 - 3.0For acute myocardial infarction without aspirin therapy: 3.0 - 4.0For patients with mechanical prosthetic heart valves: 2.5 - 3.5 04/19/2024 10:5 1 AM EST 04/19/2024 3:58 PM EST us Generic External Data Provider LAB BLOOD ORDERAB LES Final Result Performing Organization Address [facility] Co de Phone Number [facility] [address] [place] [address] [phone] documented in this encounter Visit Diagnoses Not on filedocumented in this encounter Additional Health Concerns Assessment Noted Time PHQ-9 Depression Total Score: 8 11/03/19 24 9:00 AM EDT documented as of this encounter Care Teams Nursing Program Manager Relationship Specialty Start Date End Date Dominique Alcaraz MD [address] [place] [phone] PCP - General Family Medicine 12/20/12 Martina Wesley, BetsyD [address] [place] [address] Pharmacist Internal Medicine 03/12/22 documented as of this encounter
--- OUTSIDE RECORDS SUMMARY | 2024-04-20 13:56 | XMS_ITS | Encounter Summary ---
Author Organization [facility] Address [address] [place] [address] Phone Care Team Providers Care Alkylation Operator Name Role Phone Dominique Alcaraz MD Primary Care Provider rBent gomez Encounter Details Date Type Department Care Team (Late Contact Info) Description 10/17/2021 Orders Only [facility] [address] [place] [address] Lyle Blancas MD [address] [place] [address] [place] [address] Stage 3a chronic kidney disease [...] Visit [facility] [address] [place] [address] Refugio Huston MD [address] [place] [address] [place] [address] Scheduled Orders Name Type Priority [...] (HCC) documented in this encounter Care Teams Alkylation Operator Relationship Specialty Start Date End Date Dominique Alcaraz MD PCP - General 01/03/19 documented as of this encounter
--- OUTSIDE RECORDS SUMMARY | 2024-04-20 13:56 | XMS_ITS | Encounter Summary ---
Author Organization [facility] [facility] Address [address] [facility] 7t [place] [address] Care Team Providers Care Strategic Accounts Manager Name Role Phone Dominique Alcaraz MD Primary Care Provider + [phone] Martina Wesley PharmD Unavailable +1- [phone] Reason for Visit * Reason Comments Med Refill Encounter Details Date Type Department Care Team (Late st Contact Info) Description 03/31/2024 Refill [facility] [address] [place] [address] Dominique Alcaraz MD [address] [place], [place] [phone] Stage 2 chronic kidney disease; Vitamin D [...] Description 05/02/2024 1:00 PM EST Office Visit [facility] [address] [place] [address] Daksha Simran [address] [place] [address] 07/25/2024 10:00 AM EDT Medication Management [facility] [address] [place] [address] Martina Wesley, PharmD [address] [place] [address] documented as of this encounter Goals Goal [...] documented as of this encounter Care Teams Strategic Accounts Manager Relationship Specialty Start Date End Date Dominique Alcaraz MD [address] [place] [address] PCP - General Family Medicine 12/20/12 Martina Wesley, Irma [address] [place] [address] Pharmacist Internal Medicine 03/12/22 documented as of this encounter
--- OUTSIDE RECORDS SUMMARY | 2024-04-20 13:56 | XMS_ITS | Clinical Summary ---
Author Organization [employer] [facility] Address [address] [facility] 7t [place] [address] Care Team Providers Care Office Rn Name Role Phone Dominique Alcaraz MD Primary Care Provider +- [phone] Martina Wesley PharmD Unavailable Allergies Active Allergy Reactions Criticality Noted Date [...] 2 diabetes mellitus without complication, 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 long chain quiller tender insulin use ([facility]) TAKE 1 TABLET BY MOUTH ONCE DAILY 30 tablet 05/07/19 24 Active glucose blood ([facility]STYLE LITE) test stripIndications :Type 2 diabetes mellitus with chronic kidney disease, without long-term current use of insulin, unspecified CKD stage ([facility]) TEST BLOOD SUGAR TWICE DAILY 100 [...] be different from the original. Enrolled in [facility] DM and [facility] HTN clinic with Martina Wesley, [place], [facility] Range Management Specialist: Jaci Cosmetologist Apprentice Agency[facility] [employer] [facility] Problem Noted Date Diagnosed Date Cardiac risk [...] Cano last done 06/18/2022 -dental home is [facility] -Health care proxy 11/03/23 Assessment & Plan (11/03/2023 9:32 AM EDT): -next physical exam due after 11/05/2023 -eye care facilitated by Dr. Cano last done 06/18/2022 -dental home is [facility] -Health care proxy 11/03/23 Assessment & Plan (11/04/2022 9:18 AM EDT): -next physical exam due after 11/05/2023 -eye care facilitated by Dr. Cano last done 05/2022 -dental home is [facility] Low back pain without sciatica 11/04/2022 Overview (11/04/2022): PT referral done 11/04/2022. Assessment & Plan (11/04/2022 9:23 AM EDT): PT referral done 11/04/2022. Pre-op evaluation 08/05/2022 Overview (11/03/2023): For cataract surgery at [facility] with Dr. Gusman. Pt with mechanical [...] surgery on 11/15/23. After this appointment the stem assembler will be able to determine what medications should or can be held. Assessment & Plan (11/03/2023 9:26 AM EDT): For cataract surgery at [facility] with Dr. Gusman. Pt with mechanical [...] was treated medically as if she was post-DE. Pt was started on both Aspirin and Lipitor. No longer on Plavix. She was on on Digoxin 250 mcg but this was DISCONTINUED in Dec 2012 due to sinus pauses noted at cardiac rehab and her Metoprolol was increased to 25 mg po TID, she is now on aspirin and Coumadin. Last note from cardiac surgery is dated 12/08/12. Her stem assembler is Dr. Moses Dumont, last visit 05/2018 -PT NEEDS ANTIBIOTIC PROPHLAXIS PRIOR TO DENTAL WORK - RX AMOXICILLIN 2G PRIOR TO DENTAL WORK -Seen by Dr. Dumont 12/2022 recommending follow up 1 year -note from Patient followed at [facility] with Dr. John Dumont DO. [...] was treated medically as if she was post-DE. Pt was started on both Aspirin and Lipitor. No longer on Plavix. She was on on Digoxin 250 mcg but this was DISCONTINUED in Dec 2012 due to sinus pauses noted at cardiac rehab and her Metoprolol was increased to 25 mg po TID, she is now on aspirin and Coumadin. Last note from cardiac surgery is dated 12/08/12. Her stem assembler is Dr. Moses Dumont, last visit 05/2018 [...] was treated medically as if she was post-DE. Pt was started on both Aspirin and Lipitor. No longer on Plavix. She was on on Digoxin 250 mcg but this was DISCONTINUED in Dec 2012 due to sinus pauses noted at cardiac rehab and her Metoprolol was increased to 25 mg po TID, she is now on aspirin and Coumadin. Last note from cardiac surgery is dated 12/08/12. Her stem assembler is Dr. Moses Dumont, last visit 05/2018 [...] in 2005 - Previously followed [facility]. Last note dated 10/03/2013. Follow up annually for mammo and office visit. - [facility] no longer accepting pt's insurance so now followed at [facility] q [address] Pryor. -Last [...] in 2005 - Previously followed by [facility]. Last note dated 10/03/2013. Follow up annually for mammo and office visit. - [facility] no longer accepting pt's insurance so now followed at [facility] q [address] Pryor. -Last seen by oncology on 08/25/2019. 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 Last note dated 10/03/2013. Follow up annually for mammo and office visit. - [facility] no longer accepting pt's insurance so now followed at [facility] q [address] Pryor. -Last seen by oncology on 08/25/2019. -Recent Mammo 04/11/21 BI-RADS 2 benign Atrial fibrillation 03/26/2013 Overview (12/22/2023): - continue choric anticoagulation INR goal 2.5-3.5 due to heart valve repair -note from Patient followed at [facility] with Dr. John Dumont DO. [...] 80mg daily -ordered lipid panel 11/03/23 -offered [place]-3s, bu wants to trial lifestyle changes. Will [...] 80mg daily -ordered lipid panel 11/03/23 -offered [place]-3s, bu wants to trial lifestyle changes. Will [...] Encounters Date Type Department Care Team Description 04/19/2024 Orders Only GENERIC EXTERNAL DATA DEPARTMENT Provider, Generic External Data 04/18/2024 Refill [facility] [address] [place] [address] Dominique Alcaraz MD History of aortic valve repair; Paroxysmal atrial fibrillation ([facility]/H[facility]) 03/31/2024 Refill [facility] [address] [place] [address] Dominique Alcaraz MD Stage 2 chronic kidney disease; Vitamin D deficiency 03/17/2024 Orders Only GENERIC EXTERNAL DATA DEPARTMENT Provider, Generic External Data 02/18/2024 Orders Only GENERIC EXTERNAL DATA DEPARTMENT Provider, Generic External Data 01/24/2024 Travel 01/21/2024 Orders Only GENERIC EXTERNAL DATA DEPARTMENT Provider, Generic External Data 01/20/2024 Orders Only [facility] [address] [place], [place] [phone] Dominique Alcaraz MD Hypertension, unspecified type (Primary Dx) 01/20/2024 Telephone [facility] [address] [place], [place] [phone] Dominique Alcaraz MD from Last 3 Months [...] antigen) 11/17/2011 [facility] SARS-CoV-2 Vaccination 05/15/2020 Novel [id number] 11/19/2015 Pfizer Covid-19 Vaccine 12+ 01/31/2021 Pfizer [...] Description 05/02/2024 1:00 PM EST Office Visit [facility] [address] [place], [place] [phone] Simran Crooks [address] [place] [address] 07/25/2024 10:00 AM EDT Medication Management [facility] [address] [place] [address] Martina Wesley, PharmD [address] [place] [address] Health Maintenance Due Date Last Done Comments [...] Exam 06/18/2024 06/18/2022 Diabetes: Hemoglobin A1C 07/23/2024 024, 11/03/2023, 06/09/2023, Additional history exists Lipid Panel 07/29/2024 07/30/2023, 040 08/2022, 02/18/2022, Additional history exists Depression Screening [...] COAG CLINIC Routine 04/19/2024 10:51 AM EST PROTHROMBIN TIME WHOLE BLD POC Routine 03/17/2024 [...] ESTABLISHED PATIENT Routine 03/09/2023 1:00 PM EST DIABETES EYE EXAM Routine 06/18/2022 COLONOSCOPY Routine 09/03/2018 12:11 PM EDT from Last 3 Months or Most Recently Relevant to Health Maintenance Results * (ABNORMAL) PROTHROMBIN TIME WHOLE BLD POC (04/19/2024 10:51 AM EST) Only the most recent of4 resultswithin the time period is included. Protime 33.1(H) 11.1 - 13.5 sec [facility] 04/19/2024 10:5 1 AM EST 04/19/2024 3:58 PM EST us Generic External Data Provider LAB BLOOD ORDERAB LES Final Result Performing Organization Address [facility] Co de Phone Number [facility] [address] [place] [phone] * (ABNORMAL) ~PT, ~INR - ANTI COAG CLINIC (04/19/2024 10:51 AM EST) Only the most recent of4 resultswithin the time period is included. Prothrombin Time INR 2.8(H) 0.9 - 1.1 [facility] Comment:METER #: [id number] TERNATIONAL NORMALIZED RATIO (INR) REFERENCE RANGES Reference [...] ORDERAB LES Final Result Performing Organization Address [facility] Co de Phone Number [facility] [address] [place] [address] [phone] * (ABNORMAL) POCT HGB A1C (01/24/2024 10:04 AM EST) Hemoglobin A1C 6.8(A) 4.0 - 6.0 % QC Media Lot # [id number] Lot# Expiration Date [id number] Blood 01/24/2024 10:0 4 AM EST Dominique Alcaraz MD POINT OF CARE TEST ENTER/E DIT ORDERABLES Final Result * (ABNORMAL) Lipid Panel, Standard (07/30/2023 8:15 AM EDT) Triglycerides 239(H) <150 mg/dL [facility] Comment:Desirable Triglyceri de: less than 150 mg/dLBorderline High Triglyceride 150-199 mg/dLHigh Triglyceride: 200-499 mg/dLVery High Triglyceride: greater than or equal to 5OO mg/dL Cholesterol 154 <200 mg/dL [facility] Comment:Desirable Cholestero l: less than 200 mg/dLBorderline High Cholesterol: 200-239 mg/dLHigh Cholesterol: greater than 239 mg/dL LDL Cholesterol Calculated 70 <100 mg/dL [facility] Comment:Desirable LDL: less than 100 mg/dLNear Optimal/Above Optimal LDL: 110- 129 mg/dLBorderline High LDL: 130-159 mg/dLHigh LDL: 160-189 mg/dLVery High LDL: greater than or equal to 190 mg/dL HDL Cholesterol 37(L) >40 mg/dL [facility] Comment:Desirable HDL: great er than 40 mg/dL Note: This HDL assay may give artificially low results in patients with liver disease. 07/30/2023 8:15 AM EDT 07/30/2023 11:12 AM EDT Dominique Alcaraz MD LAB BLOOD ORDERABLES Final Result [facility] [address] [place] [address] [phone] * BI Mammogram Screening Tomosynthesis Bilateral (04/15/2023 1:12 PM EST) Anatomical Region Laterality Modality Breast Bilateral Mammography 04/15/2023 1:12 PM EST Narrative 05/09/2023 9:12 AM EDT ? [facility] ? [address] ?[place] [address] ? Mammography Report ? Signed ? Patient: Barron,Dyan L ?MR#: [id number] ?? [id number] ? : 1955 ?Acct:[id number] ? Age/Sex: 67 / F ?ADM Date: 04/15/23 ? Loc: HO.MAMMO ? Attending Dr: Chun Álvarez MD ? Ordering Physician: Chun Álvarez MD ?Results: 2Benig ?? n Findings ? Date of Service: 04/15/23 ?Follow Up: 1 Year From Orig ?? inal Mammogram ? Procedure(s): MM tomosynthesis screening BI ?? Accession Number(s): [id number] ? cc: Dominique Alcaraz MD; Chun Álvarez [...] 0909 ? DD/ 1312 ? TD/TT: ? Ballistics Laboratory Gunsmith: ? Procedure Note Ivan, Image - 05/09/2023 [facility] [address] [place] [address] Dr. [place], [place] [address] Mammography Report Signed Patient: Dyan Mart LMR#: [id number] : 6Acct:[id number] Age/Sex: 67 / FADM Date: 04/15/23 Loc: HO.AURELIAO Attending Dr: Chun Álvarez MD Ordering Physician: Chun Álvarezesults: 2Benig n Findings Date of Service: 04/15/23Follow Up: 1 Year From Orig inal Mammogram Procedure(s): MM tomosynthesis screening BI Accession Number(s): [id number] cc: Dominique Alcaraz MD; Chun Álvarez MD [...] in OV> 05/09/23 0909 DD/ 1312 TD/TT: [facility] Gunsmith: [facility] External Provider IMG BI PROCEDURES Edited Result - Final * Diabetes Eye Exam (06/18/2022) Eye Exam Normal Normal Historical Provider HEALTH MAINTENANCE Final Result * Colonoscopy (09/03/2018 12:11 PM EDT) Historical Provider HEALTH MAINTENANCE Final Result from Last 3 Months or Most Recently Relevant to Health Maintenance Insurance [facility] - [facility] Advance Directives Documents on File Type Date Recorded 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
--- OUTSIDE RECORDS SUMMARY | 2024-04-20 13:56 | XMS_ITS | Encounter Summary ---
Author Organization [facility] Address [address] [place] [address] Phone Care Team Providers Care Acoustical Tile Carpenters Supervisor Name Role Phone Dominique Alcaraz MD Primary Care Provider U patricia Encounter Details Date Type Department Care Team (Late st Contact Info) Description 06/08/2022 Documentation Only [facility] [address] [place] [address] Cesia Perry PA Social History [...] Visit [facility] [address] [place] [address] Refugio Huston MD [address] [place] [address] [place] [address] documented as of this encounter Visit Diagnoses Not on filedocumented in this encounter Care Teams Acoustical Tile Carpenters Supervisor Relationship Specialty Start Date End Date Dominique Alcaraz MD PCP - General 01/03/19 documented as of this encounter
--- OUTSIDE RECORDS SUMMARY | 2024-04-20 13:56 | XMS_ITS | Encounter Summary ---
Author Organization [employer] [facility] Address [address] 7t [place] [address] Care Team Providers Care Research And Evaluation Manager Name Role Phone Dominique Alcaraz MD Primary Care Provider +- [phone] Martina Wesley PharmD Unavailable +1- [phone] Reason for Visit * Reason Onset Date Comments Pre op 09/23/2023 Encounter Details Date Type Department Care Team (Late st Contact Info) Description 09/23/2023 Telephone [facility] [address] [place] [address] Dominique Alcaraz MD [address] [place], [place] [phone] Pre op Social History Tobacco Use Types [...] No Surgeon's name: mercedes mohan Facility name: [address], [place] [address] Surgeon's office number: [phone] Surgeon's office fax number: [phone] Contact name (person you spoke with): [place] Last office note from surgeon requested: No * Telephone Encounter - Bharti Fregoso - 09/23/2023 12:23 PM EDT Date of Surgery: right eye 11/15/23 and left eye 11/28 Surgical procedure being done: cataract surgery both eyes Type of anesthesia: local anesthesia Lab needed: No EKG: No Surgeon's name: mercedes mohan Facility name: [address], [place] [address] Surgeon's office number: [phone] Surgeon's office fax number: [phone] Contact name (person you spoke with): [place] Last office note from surgeon requested: No documented in this encounter Plan of Treatment Upcoming Encounters Date Type Department Care Team (Late st Contact Info) Description 05/02/2024 1:00 PM EST Office Visit [facility] [address] [place], [place] [phone] DakshaSimran [address] [place], [place] [phone] 07/25/2024 10:00 AM EDT Medication Management [facility] [address] [place], [place] [phone] JamarisMartina Larsen, PharmD [address] [place], [place] [phone] documented as of this encounter Goals Goal [...] documented as of this encounter Care Teams Research And Evaluation Manager Relationship Specialty Start Date End Date Dominique Alcaraz MD [address] [place], [place] [phone] PCP - General Family Medicine 12/20/12 JamarisMartina Larsen, PharmD [address] [place], [place] [phone] Pharmacist Internal Medicine 03/12/22 documented as of this encounter
--- OUTSIDE RECORDS SUMMARY | 2024-04-20 13:56 | XMS_ITS | Encounter Summary ---
Author Organization [facility] Address [address] [place] [address] Phone Care Team Providers Care [employer] Name Role Phone Dominique Alcaraz MD Primary Care Provider U patricia Encounter Details Date Type Department Care Team (Late st Contact Info) Description 11/04/2021 Documentation Only [facility] [address] [place] [address] Cesia Perry PA Social History [...] Visit [facility] [address] [place] [address] Refugio Huston MD [address] [place] [address] Dr. Yamile[place] [address] documented as of this encounter Visit Diagnoses Not on filedocumented in this encounter Care Teams [employer] Relationship Specialty Start Date End Date Dominique Alcaraz MD PCP - General 01/03/19 documented as of this encounter
--- OUTSIDE RECORDS SUMMARY | 2024-04-20 13:56 | XMS_ITS | Encounter Summary ---
Author Organization [facility] Address [address] 7[address] [place] [address] Care Team Providers Care Clinical Nutrition Manager Name Role Phone Dominique Alcaraz MD Primary Care Provider + [phone] Martina Wesley PharmD Unavailable +1- [phone] Reason for Visit * Reason Comments Med Refill Encounter Details Date Type Department Care Team (Late st Contact Info) Description 04/18/2024 Refill [facility] [address] [place] [address] Dominique Alcaraz MD [address] [place], [place] [phone] History of aortic valve repair; Paroxysmal atrial [...] 04/18/2024 3:29 PM EST Pt follows with [facility]. Last seen by them 03/17/24. [...] Visit [facility] [address] [place] [address] Simran Crooks [address] [place], [place] [phone] 07/25/2024 10:00 AM EDT Medication Management [facility] [address] [place], [place] [phone] Martina Wesley, PharmD [address] [place], [place] [phone] documented as of this encounter Goals Goal [...] documented as of this encounter Care Teams Clinical Nutrition Manager Relationship Specialty Start Date End Date Dominique Alcaraz MD [address] [place] [address] PCP - General Family Medicine 12/20/12 Martina Wesley PharmD [address] [place] [address] Pharmacist Internal Medicine 03/12/22 documented as of this encounter
--- OUTSIDE RECORDS SUMMARY | 2024-04-20 13:57 | XMS_ITS | Clinical Summary ---
Author Organization [facility] [place], Address [address] [place] [address] [place] [address] Phone Care Team Providers Care Transplant Registered Nurse Name Role Phone Dominique Alcaraz MD Primary [...] Quadrivalent, With Preservative 01/27,03/19/2015 Influenza, Unspecified 12/04/2021,01/04/2014,07/2010 [employer] SARS-COV-2 05/15/2020 Pfizer SARS-COV-2 01/31/2021 Pneumococcal Conjugate [...] Visit [facility] [address] [place] [address] Refugio Huston MD [address] [facility] [place] [address] Health Maintenance Due Date Last Done Comments [...] to complete this topic [place] [facility] DUAL SNP ([id number]) Care Teams Transplant Registered Nurse Relationship Specialty Start Date End Date Kieran, Dominique Davies MD PCP - General 01/03/19
== END 2024-04-20 13:01 | disposition home or self-care (01) ==
LOC: HO.MAMMO 13:00
PROVIDERS: PCP Family Medicine; Visit Provider Family Medicine
DX: Z12.31 Encounter for screening mammogram for malignant neoplasm of breast (principal)
CPT/HCPCS: 77063; 77067

== ENCOUNTER → 2024-04-20 13:15 | Outpatient (BNV) | payer OTHER, SELFPAY | PROVIDERS: PCP Family Medicine; Visit Provider Internal Medicine | DX: Z12.31 Encounter for screening mammogram for malignant neoplasm of breast (principal) | CPT/HCPCS: 77063; 77067 ==

== ENCOUNTER 2024-05-01 13:29 | Outpatient (AMB) | payer OTHER, SELFPAY ==
[2024-05-01 13:34] LABS: Prothrombin Time Whole Bld POC 27.7 sec (11.1-13.5); ~PT, ~INR - Anti Coag Clinic 2.3 (0.9-1.1)
--- NOTE | 2024-05-01 13:36 | MHC.OFFVISCO ---
Intake Intake Visit Reasons: Anticoagulation Allergies lisinopril [LISINOPRIL] Allergy (Intermediate, Verified 05/01/24 13:29) rash/cough, palpitations Medication List - Last Reconciled 05/01/24 by Kianna Aviles RN amlodipine 5 mg PO DAILY aspirin 81 mg PO DAILY atorvastatin 80 mg PO BEDTIME blood sugar diagnostic (FreeStyle Lite Strips) As directed blood-glucose meter (FreeStyle [place] Lite kit) As directed calcium carbonate (Calcium Antacid) mg PO cholecalciferol (vitamin D3) (Vitamin D3) 25 mcg PO DAILY cyanocobalamin (vitamin B-12) (Vitamin B-12) 500 mcg PO DAILY empagliflozin (Jardiance) 25 mg PO DAILY ferrous sulfate 325 mg PO DAILY lancets (TRUEplus Lancets) As directed metformin ER 500 mg PO QPM metoprolol tartrate 1 tab PO BID telmisartan (Micardis) 80 mg PO DAILY warfarin 5 mg See Protocol PO DIRECTED warfarin 2.5 mg See Protocol PO DIRECTED Nursing Note INR ?2.3out of therapeutic range 2.5-3.5 Medications and supplements reviewed Patient status: ATE MORE CHOCOLATE AND GREENS THAN USUAL Medications or supplements: ATNBX X 1 DAY FOR DENTAL Diet: GOOD Denies any signs and symptoms of bleeding or clotting or unusual bruising Bleeding, bruising, clotting discussed Nutritional guidance given: NO GREENS X 2 DAYS Dose: 5MG X 3 DAYS THIS WEEK THEN 5MG X 2 DAYS/ 2.5MG X 5 DAYS F/U INR Date : 05/19/24 ?? Patient verbalizing understanding of instructions given. Anti-Coag Initial Assessment Social Hx Patient Tobacco Use Status: Never used Tobacco alcohol intake: former Alcohol intake frequency: does not drink Coding Level of Care Code Est Patient Level 1 Diagnoses Current use of anticoagulant therapy Z79.01 Assessment & Plan Assessment & Plan (1) Current use of anticoagulant therapy: Code(s): Z79.01 - salvage determiner (current) 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
--- OUTSIDE RECORDS SUMMARY | 2024-05-01 15:54 | XMS_ITS | Encounter Summary ---
Author Organization [facility] Address [address] [place] [address] Phone Care Team Providers Care Sweatband Separator Name Role Phone Dominique Alcaraz MD Primary Care Provider Brent gomez Encounter Details Date Type Department Care Team (Late Contact Info) Description 10/27/2023 Documentation Only [facility] [address] [place] [address] Michelle Linares [address] [place] [address] Social History Tobacco Use Types [...] Visit [facility] [address] [place] [address] Refugio Huston MD [address] [place] [address] [place] [address] documented as of this encounter Visit Diagnoses Not on filedocumented in this encounter Care Teams Sweatband Separator Relationship Specialty Start Date End Date Dominique Alcaraz MD PCP - General 01/03/19 documented as of this encounter
--- OUTSIDE RECORDS SUMMARY | 2024-05-01 15:54 | XMS_ITS | Encounter Summary ---
Author Organization [facility] Address [address] [facility] 7t [place] [address] Care Team Providers Care Oracle Hyperion Consultant Name Role Phone Dominique Alcaraz MD Primary Care Provider [phone] Martina Wesley PharmD Unavailable Refugio Huston MD Unavailable Chun Álvarez MD Unavailable [phone] Moses Dumont MD Unavailable Encounter Details Date Type Department Care Team (Late Contact Info) Description 10/30/2022 Abstract [facility] MEDICINE [address] [place], [place] [phone] Dominique Alcaraz MD [address] [place] [address] Social History Tobacco Use Types Packs/Day Years [...] Description 05/02/2024 1:00 PM EST Office Visit [facility] [address] [place], [place] [phone] Daksha, Simran [address] [place], [place] [phone] 07/25/2024 10:00 AM EDT Medication Management [facility] MEDICINE [address] [place] [address] Martina Wesley PharmD [address] [place] [address] documented as of this encounter Goals Goal [...] documented as of this encounter Care Teams Oracle Hyperion Consultant Relationship Specialty Start Date End Date Dominique Alcaraz MD [address] [place] [address] PCP - General Family Medicine 12/20/12 Martina Wesley, PharmD 230 [place] [address] Pharmacist Internal Medicine 03/12/22 Refugio Huston MD [address] [place] [phone] Nephrology 05/01/24 Chun Álvarez MD [address] [place] [address] Hematology and Oncology 05/01/24 Moses Dumont MD [address] [place] [address] Cardiology 05/01/24 documented as of this encounter
--- OUTSIDE RECORDS SUMMARY | 2024-05-01 15:54 | XMS_ITS | Encounter Summary ---
Author Organization [facility] Address [address] [place] [address] Phone Care Team Providers Care Visual Educator Name Role Phone Dominique Alcaraz MD Primary Care Provider U patricia Encounter Details Date Type Department Care Team (Late st Contact Info) Description 06/08/2022 Documentation Only [facility] [address] [place] [address] Cesia Perry PA Social History [...] Visit [facility] [address] [place] [address] Refugio Huston MD [address] [place] [address] [place] [address] documented as of this encounter Visit Diagnoses Not on filedocumented in this encounter Care Teams Visual Educator Relationship Specialty Start Date End Date Dominique Alcaraz MD PCP - General 01/03/19 documented as of this encounter
--- OUTSIDE RECORDS SUMMARY | 2024-05-01 15:54 | XMS_ITS | Encounter Summary ---
Author Organization [facility] Address [address] [place] [address] Phone Care Team Providers Care Skilled Laborer Name Role Phone Dominique Alcaraz MD Primary Care Provider U patricia Encounter Details Date Type Department Care Team (Late st Contact Info) Description 03/12/2023 Documentation Only [facility] [address] [place] [address] Cesia Perry PA Social History [...] Visit [facility] [address] [place] [address] Refugio Huston MD [address] [place] [address] [place] [address] documented as of this encounter Visit Diagnoses Not on filedocumented in this encounter Care Teams Skilled Laborer Relationship Specialty Start Date End Date Dominique Alcaraz MD PCP - General 01/03/19 documented as of this encounter
--- OUTSIDE RECORDS SUMMARY | 2024-05-01 15:54 | XMS_ITS | Encounter Summary ---
Author Organization [employer] [facility] Address [address] 7t [place] [address] Care Team Providers Care Academic Affairs Assistant Name Role Phone Dominique Alcaraz MD Primary Care Provider + [phone] Martina Wesley PharmD Unavailable [phone] Reason for Visit * Reason Comments Med Refill Encounter Details Date Type Department Care Team (Late st Contact Info) Description 04/27/2024 Refill [facility] MEDICINE [address] [place] [address] Dominique Alcaraz MD [address] [place], [place] [phone] Social History Tobacco Use Types Packs/Day Years [...] Description 05/02/2024 1:00 PM EST Office Visit [facility] [address] [place] [address] Simran Crooks [address] [place] [address] 07/25/2024 10:00 AM EDT Medication Management [facility] MEDICINE [address] [place] [address] JamarisMartina Larsen, PharmD [address] [place] [address] documented as of this encounter Goals Goal [...] documented as of this encounter Care Teams Academic Affairs Assistant Relationship Specialty Start Date End Date Dominique Alcaraz MD [address] [place] [address] PCP - General Family Medicine 12/20/12 Martina Wesley, BetsyD [address] [place] [address] Pharmacist Internal Medicine 03/12/22 documented as of this encounter
--- OUTSIDE RECORDS SUMMARY | 2024-05-01 15:54 | XMS_ITS | Encounter Summary ---
Author Organization [facility] Address [address] [facility] 7t [place] [address] Care Team Providers Care Canal Tender Name Role Phone Dominique Alcaraz MD Primary Care Provider + [phone] Martina Wesley PharmD Unavailable [phone] Reason for Visit * Reason Comments Med Refill Encounter Details Date Type Department Care Team (Late st Contact Info) Description 04/24/2024 Refill [facility] MEDICINE [address] [place] [address] Dominique Alcaraz MD [address] [place], [place] [phone] Primary hypertension Social History Tobacco Use Types Packs/Day Years [...] Description 05/02/2024 1:00 PM EST Office Visit [facility] D[facility] [address] [place] [address] Simran Crooks [address] [place] [address] 07/25/2024 10:00 AM EDT Medication Management [facility] MEDICINE [address] [place] [address] Martina Wesley, PharmD [address] [place] [address] documented as of this encounter Goals Goal Patient Goal Type Associated Problems Recent Progress Patient-Stated? Author Blood Pressure < 140/90 Blood Pressure 130/62(2023 10:17 AM EST) No Piers-Gambl e, Martina, PharmD Hemoglobin A1c < 7 Result Component 6.8( 10:04 AM EST) No Piers-Gambl eMartina, PharmD documented as of this encounter Visit Diagnoses Diagnosis Primary hypertension Unspecified essential hypertension documented in this encounter Additional Health Concerns Assessment Noted Time PHQ-9 Depression Total Score: 8 11/03/19 24 9:00 AM EDT documented as of this encounter Care Teams Canal Tender Relationship Specialty Start Date End Date Dominique Alcaraz MD [address] [place] [address] PCP - General Family Medicine 12/20/12 Martina Wesley PharmD [address] [place] [address] Pharmacist Internal Medicine 03/12/22 documented as of this encounter
--- OUTSIDE RECORDS SUMMARY | 2024-05-01 15:54 | XMS_ITS | Encounter Summary ---
Author Organization [employer] Address [address] [facility] [address] 7[address] [place] [address] Care Team Providers Care Backshoe Person Name Role Phone Dominique Alcaraz MD Primary Care Provider Martina Wesley PharmD Unavailable [phone] Refugio Huston MD Unavailable [phone] Chun Álvarez MD Unavailable [phone] Moses Dumont MD Unavailable [phone] Encounter Details Date Type Department Care Team (Late st Contact Info) Description 05/01/2024 Orders Only [facility] MEDICINE [address] [place], [place] [phone] Dominique Alcaraz MD [address] [place], [place] [phone] Type 2 diabetes mellitus with chronic kidney disease, without long-term current use of insulin, unspecified CKD stage (CMS/HCC) (Primary Dx); Atypical ductal hyperplasia of breast Social History Tobacco Use Types Packs/Day Years [...] the past 12 months, has t he [employer], gas, oil or water company threatened to [...] Description 05/02/2024 1:00 PM EST Office Visit [facility] DENTAL [address] [place] [address] Simran Crooks [address] [place] [address] 07/25/2024 10:00 AM EDT Medication Management [facility] MEDICINE [address] [place] [address] Martina Wesley PharmD [address] [place] [address] documented as of this encounter Goals Goal Patient Goal Type Associated Problems Recent Progress Patient-Stated? Author Blood Pressure < 140/90 Blood Pressure 130/62(2023 10:17 AM EST) No Martina Tiwari, PharmKourtney Hemoglobin A1c < 7 Result Component 6.8( 10:04 AM EST) No Martina Tiwari PharmD documented as of this encounter Procedures Procedure Name Priority Date/Time Associated Diagnosis Comments PROTHROMBIN TIME WHOLE BLD POC Routine 05/01/2024 1:32 PM EST Type 2 diabetes mellitus with chronic kidney disease, without long-term current use of insulin, unspecified CKD stage ([facility]/HCC) ~PT, ~INR - ANTI COAG CLINIC Routine 05/01/2024 1:32 PM EST Type 2 diabetes mellitus with chronic kidney disease, without long-term current use of insulin, unspecified CKD stage (CMS/HCC) documented in this encounter Results * (ABNORMAL) PROTHROMBIN TIME WHOLE BLD POC (05/01/2024 1:32 PM EST) Protime 27.7(H) 11.1 - 13.5 sec [facility] 05/01/2024 1:32 PM EST 05/01/2024 1:34 PM EST us Generic External Data Provider LAB BLOOD ORDERAB LES Final Result Performing Organization Address City/State/[facility] Co de Phone Number [facility] [address] [place] [phone] * (ABNORMAL) ~PT, ~INR - ANTI COAG CLINIC (05/01/2024 1:32 PM EST) Prothrombin Time INR 2.3(H) 0.9 - 1.1 [facility] Comment:METER #: [id number] TERNATIONAL NORMALIZED RATIO (INR) REFERENCE RANGES Reference RangeFor patients not on anticoagulant therapy: 0.9 - 1.1INR ranges for oral anticoagulanttherapy:For prevention and treatment of venous thrombosis and pulmonary embolism: 2.0 - 3.0For acute myocardial infarction with aspirin therapy: 2.0 - 3.0For acute myocardial infarction without aspirin therapy: 3.0 - 4.0For patients with mechanical prosthetic heart valves: 2.5 - 3.5 05/01/2024 1:32 PM EST 05/01/2024 1:34 PM EST us Generic External Data Provider LAB BLOOD ORDERAB LES Final Result [facility] [address] [place] [address] [phone] documented in this encounter Visit Diagnoses Diagnosis Type 2 diabetes mellitus with chronic kidney disease, without long-term current use of insulin, unspecified CKD stage (CMS/HCC)- Primary Atypical ductal hyperplasia of breast Other specified benign mammary dysplasias documented in this encounter Additional Health Concerns Assessment Noted Time PHQ-9 Depression Total Score: 8 11/03/19 24 9:00 AM EDT documented as of this encounter Care Teams Backshoe Person Relationship Specialty Start Date End Date Dominique Alcaraz MD [address] [place] [address] PCP - General Family Medicine 12/20/12 Martina Wesley, BetsyD [address] [place] [address] Pharmacist Internal Medicine 03/12/22 Refugio Huston MD [address] [place] [address] Nephrology 05/01/24 Chun Álvarez MD [address] [place] [address] Hematology and Oncology 05/01/24 Moses Dumont MD [address] [place] [address] Cardiology 05/01/24 documented as of this encounter
--- OUTSIDE RECORDS SUMMARY | 2024-05-01 15:55 | XMS_ITS | Encounter Summary ---
Author Organization [facility] Address [address] [facility] 7t [place] [address] Care Team Providers Care Shake Feeder Name Role Phone Dominique Alcaraz MD Primary Care Provider + [phone] Martina Wesley PharmD Unavailable [phone] Refugio Huston MD Unavailable [phone] Chun Álvarez MD Unavailable [phone] Moses Dumont MD Unavailable [phone] Encounter Details Date Type Department Care Team (Late st Contact Info) Description 12/08/2023 Orders Only [facility] [address] [place] [address] Provider, MD Christiano Social History Tobacco Use Types Packs/Day Years Used Date Smoking Tobacco: Never Smokeless Tobacco: Never Depression Answer Date Recorded Patient Health Questionnaire-9 Score 8 11/03/2023 Patient Health Questionnaire-9 Score 8 11/03/2023 Last PHQ-9: Questionnaire Data Not on file 0 11/03/2023 Housing Stability Answer Date Recorded What is your housing situation today? I have jasekathe li 11/03/[address] you [...] [facility] [address] [place] [address] Daksha Simran [address] [place] [address] 07/25/2024 10:00 AM EDT Medication Management [facility] MEDICINE [address] [place], [place] [phone] JamarisMartina Larsen, PharmD [address] [place], [place] [phone] documented as of this encounter Goals Goal Patient Goal Type Associated Problems Recent Progress Patient-Stated? Author Blood Pressure < 140/90 Blood Pressure 130/62(2023 10:17 AM EST) No Jamaris-Maria Isabel Jaffesa, PharmD Hemoglobin A1c < 7 Result Component 6.8( 10:04 AM EST) No Jamaris-Martina Jaffe, PharmD documented as of this encounter Procedures [...] documented as of this encounter Care Teams Shake Feeder Relationship Specialty Start Date End Date Dominique Alcaraz MD [address] [place] [address] PCP - General Family Medicine 12/20/12 Martina Wesley, BetsyD [address] [place] [address] Pharmacist Internal Medicine 03/12/22 Refugio Huston MD [address] [place] [phone] Nephrology 05/01/24 Chun Álvarez MD [address] [place] [address] Hematology and Oncology 05/01/24 Moses Dumont MD [address] [place] [address] Cardiology 05/01/24 documented as of this encounter
--- OUTSIDE RECORDS SUMMARY | 2024-05-01 15:55 | XMS_ITS | Clinical Summary ---
Author Organization [facility] [place], Address [address] [place] [address] [place] [address] Phone Care Team Providers Care Papier Mache' Molder Name Role Phone Dominique Alcaraz MD Primary [...] Quadrivalent, With Preservative 01/27,03/19/2015 Influenza, Unspecified 12/04/2021,01/04/2014,07/2010 [employer] SARS-COV-2 05/15/2020 Pfizer SARS-COV-2 01/31/2021 Pneumococcal Conjugate [...] Visit [facility] [address] [place] [address] Refugio Huston MD [address] [facility] [place] [address] Health Maintenance Due Date Last Done Comments [...] to complete this topic Insurance MEDICAID [place] [facility] DUAL SNP ([id number]) Care Teams Papier Mache' Molder Relationship Specialty Start Date End Date Kieran, Dominique Davies MD PCP - General 01/03/19
--- OUTSIDE RECORDS SUMMARY | 2024-05-01 15:55 | XMS_ITS | Encounter Summary ---
Author Organization [facility] [place], Address [address] [place] [address] Phone Care Team Providers Care Play Writer Name Role Phone Dominique Alcaraz MD Primary Care Provider U [email or web address] Reason for Visit * Reason Comments Med Refill Encounter Details Date Type Department Care Team ([facility] Contact Info) Description 02/18/2021 Refill [facility] [address] [place] [phone] Lyle Blancas MD [address] [facility] [place] [address] Social History Tobacco Use Types [...] Upcoming Encounters Date Type Department Care Team ([facility] Contact Info) Description 07/05/2024 1:45 PM EDT Office Visit [facility] [place], [address] [facility] [place] [address] Refugio Huston MD [address] [facility] [place] [address] documented as of this encounter Visit Diagnoses Not on filedocumented in this encounter Care Teams Play Writer Relationship Specialty Start Date End Date Dominique Alcaraz MD PCP - General 01/03/19 documented as of this encounter
--- OUTSIDE RECORDS SUMMARY | 2024-05-01 15:55 | XMS_ITS | Clinical Summary ---
Author Organization [employer] [facility] Address [address] [place] [address] Care Team Providers Care Materials And Processes Manager Name Role Phone Dominique Alcaraz MD Primary Care Provider + [phone] Martina Wesley PharmD Unavailable [phone] Refugio Huston MD Unavailable [phone] Chun Álvarez MD Unavailable [phone] Moses Dumont MD Unavailable [phone] Allergies Active Allergy Reactions Criticality Noted Date Comments Lisinopril Palpitations,Shortne ss of breath High 05/22/2010 Other reaction(s): palpitations, SOB Medications aspirin 81 MG EC tablet Take 1 tablet by mouth in the morning. 12/14/19 13 Active Ferrous Sulfate (iron) 325 (65 Fe) MG tablet TAKE 1 TABLET BY MOUTH ONCE DAILY WITH BREAKFAST 06/10/19 23 Active atorvastatin (Lipitor) 80 MG tabletIndicatio ns:Type 2 diabetes mellitus without complication, 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 chcf insulin use ([facility]) TAKE 1 TABLET BY MOUTH ONCE DAILY 30 tablet 11 05/07/19 24 Active glucose blood (FREESTYLE LITE) test stripIndication s:Type 2 diabetes mellitus with chronic kidney disease, without long-term current use of insulin, unspecified CKD stage ([facility]) TEST BLOOD SUGAR TWICE DAILY 100 each 09/17/19 24 Active cyanocobalamin (Vitamin B-12) 500 MCG tablet Take 500 mcg by mouth Once per day. PT PURCHASING OTC Active Jardiance 25 MGIndications:T ype 2 diabetes mellitus with chronic kidney disease, without long-term current use of insulin, unspecified CKD stage (CMS/HCC) Take 25 mg by mouth Once per day. 10/27/19 24 Active calcium carbonate (Tums) 500 MG chewable tabletIndicatio ns:Osteopenia of multiple sites Chew 1 tablet (500 mg) 2 times daily. 60 tablet 11 11/03/19 24 025 Active Magnesium 500 MG capsule PT PURCHASING OTC Active telmisartan (MIcarDIS) 80 MG tabletIndicatio ns:Primary hypertension Take 1 tablet by mouth once daily 90 tablet 1 01/25/20 24 Active amLODIPine (Norvasc) 5 MG tabletIndicatio ns:Hypertension , unspecified type Take 1 tablet (5 mg) by mouth Once per day. 90 tablet 1 01/25/20 24 Active metFORMIN XR (Glucophage-XR) 500 MG 24 hr tabletIndicatio ns:Stage 2 chronic kidney disease TAKE 1 TABLET BY MOUTH EVERY DAY 30 tablet 03/31/19 25 Active cholecalciferol (D3-1000) 25 MCG (1000 UT) capsuleIndicati ons:Vitamin D deficiency TAKE 1 CAPSULE BY MOUTH EVERY DAY 30 capsule 03/31/19 25 Active warfarin (Coumadin) 2.5 MG tabletIndicatio ns:History of aortic valve repair TAKE DIRECTED BY COUMADIN CLINIC 60 tablet 3 04/18/19 25 Active warfarin (Coumadin) 5 MG tabletIndicatio ns:History of aortic valve repair,Paroxysm al atrial fibrillation (CMS/HCC) TAKE DIRECTED BY COUMADIN CLINIC 30 tablet 3 04/18/19 25 Active metoprolol tartrate (Lopressor) 50 MG tabletIndicatio ns:Primary hypertension TAKE 1 TABLET BY MOUTH TWICE DAILY 60 tablet 04/25/19 25 Active amoxicillin (Amoxil) 500 MG capsule TAKE 4 CAPSULES BY MOUTH ONCE BEFORE de SURGERY 4 capsule 2 04/27/19 25 Active TRUEplus Lancets 33G miscIndications :Type 2 diabetes mellitus with chronic kidney disease, without long-term current use of insulin, unspecified CKD stage (CMS/HCC) TEST BLOOD SUGAR TWICE DAILY 100 each 05/02/19 25 Active TRUEplus Lancets 33G misc TEST BLOOD SUGAR TWICE DAILY 100 each 07/03/19 23 025 Discontinued(R eorder (will not trigger notification to Pharmacy)) metoprolol tartrate (Lopressor) 50 MG tabletIndicatio ns:Primary hypertension TAKE 1 TABLET BY MOUTH TWICE DAILY 60 tablet 11 03/17/19 24 025 Discontinued warfarin (Coumadin) 5 MG tabletIndicatio ns:History of aortic valve repair,Paroxysm al atrial fibrillation (CMS/HCC) TAKE DIRECTED BY COUMADIN CLINIC 30 tablet 3 11/22/19 24 025 Discontinued warfarin (Coumadin) 2.5 MG tabletIndicatio ns:History of aortic valve repair TAKE DIRECTED BY COUMADIN CLINIC 60 tablet 3 11/22/19 24 025 Discontinued Active Problems Patient Care Coordination No te Formatting of this note migh t be different from the original. Enrolled in [facility] DM and [facility] HTN clinic with Betsy JamesonD, [facility] Nursing Care Partner: Jaci Scissors Sharpener Agency: [employer] Problem Noted Date Diagnosed Date Cardiac risk counseling 12/08/2023 Overview (12/08/2023): Calculated 12/08/23: intermediate risk The 10-year ASCVD risk score (Tomy DK, et al., 2019) is: 19.6% Values used [...] Cano last done 06/18/2022 -dental home is [facility] -Health care proxy 11/03/23 Assessment & Plan (11/03/2023 9:32 AM EDT): -next physical exam due after 11/05/2023 -eye care facilitated by Dr. Cano last done 06/18/2022 -dental home is [facility] -Health care proxy 11/03/23 Assessment & Plan (11/04/2022 9:18 AM EDT): -next physical exam due after 11/05/2023 -eye care facilitated by Dr. Cano last done 05/2022 -dental home is [facility] Low back pain without sciatica 11/04/2022 Overview (11/04/2022): PT referral done 11/04/2022. Assessment & Plan (11/04/2022 9:23 AM EDT): PT referral done 11/04/2022. Pre-op evaluation 08/05/2022 Overview (11/03/2023): For cataract surgery at [facility] with Dr. Gusman. Pt with mechanical [...] surgery on 11/15/23. After this appointment the sterilisation technician will be able to determine what medications should or can be held. Assessment & Plan (11/03/2023 9:26 AM EDT): For cataract surgery at [facility] with Dr. Gusman. Pt with mechanical [...] was treated medically as if she was post-RI. Pt was started on both Aspirin and Lipitor. No longer on Plavix. She was on on Digoxin 250 mcg but this was DISCONTINUED in Dec 2012 due to sinus pauses noted at cardiac rehab and her Metoprolol was increased to 25 mg po TID, she is now on aspirin and Coumadin. Last note from cardiac surgery is dated 12/08/12. Her sterilisation technician is Dr. Moses Dumont, last visit 05/2018 -PT NEEDS ANTIBIOTIC PROPHLAXIS PRIOR TO DENTAL WORK - RX AMOXICILLIN 2G PRIOR TO DENTAL WORK -Seen by Dr. Dumont 12/2022 recommending follow up 1 year -note from Patient followed at [facility] with Dr. John Dumont, DO. 12/20/23 reveiwed Assessment & Plan (05/05/2023 [...] was treated medically as if she was post-RI. Pt was started on both Aspirin and Lipitor. No longer on Plavix. She was on on Digoxin 250 mcg but this was DISCONTINUED in Dec 2012 due to sinus pauses noted at cardiac rehab and her Metoprolol was increased to 25 mg po TID, she is now on aspirin and Coumadin. Last note from cardiac surgery is dated 12/08/12. Her sterilisation technician is Dr. Moses Dumont, last visit 05/2018 [...] was treated medically as if she was post-RI. Pt was started on both Aspirin and Lipitor. No longer on Plavix. She was on on Digoxin 250 mcg but this was DISCONTINUED in Dec 2012 due to sinus pauses noted at cardiac rehab and her Metoprolol was increased to 25 mg po TID, she is now on aspirin and Coumadin. Last note from cardiac surgery is dated 12/08/12. Her sterilisation technician is Dr. 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 Last note dated 10/03/2013. Follow up annually for mammo and office visit. - [facility] no longer accepting pt's insurance so now followed at [facility] q [address] Pryor. -Last seen by oncology with Dr. Álvarez on 10/01/23 where it was again discussed option of taking raloxifene, to decrease risk of breast cancer as well as for the osteopenia. She has declined again. Hematology to schedule the patient for a mammogram, in April of next year. 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 Last note dated 10/03/2013. Follow up annually for mammo and office visit. - [facility] no longer accepting pt's insurance so now followed at [facility] q [address] Pryor. -Last seen by oncology on 08/25/2019. 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 Last note dated 10/03/2013. Follow up annually for mammo and office visit. - [facility] no longer accepting pt's insurance so now followed at [facility] q [address] Pryor. -Last seen by oncology on 08/25/2019. -Recent Mammo 04/11/21 BI-RADS 2 benign Atrial fibrillation 03/26/2013 Overview (12/22/2023): - continue choric anticoagulation INR goal 2.5-3.5 due to heart valve repair -note from Patient followed at [place] [facility] [place] [facility] with Dr. John Dumont DO. 12/20/23 reveiwed Assessment & Plan (03/05/2022 12:04 PM EST): - continue choric anticoagulation INR goal 2.5-3.5 due to heart valve repair Type 2 diabetes mellitus 04/25/2012 Overview (05/01/2024): Diabetes is controlled. Lab Results Component Value Date HGBA1C 6.8 (A) 01/24/2024 HGBA1C 7.6 (A) 11/03/2023 HGBA1C 6.9 (A) 06/09/2023 Lab Results Component Value Date CREATININE 0.85 [...] 80mg daily -ordered lipid panel 11/03/23 -offered [place]-3s, bu wants to trial lifestyle changes. Will [...] 80mg daily -ordered lipid panel 11/03/23 -offered [place]-3s, bu wants to trial lifestyle changes. 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 Blancas Assessment & Plan (03/05/2022 12:05 PM EST): -allergic to haile inhibitors (cough) -followed by Dr. Blancas -avoid nephrotoxic agents Encounters Date Type Department Care Team Description 05/01/2024 Orders Only [facility] [address] [facility] [place] [address] Dominique Alcaraz MD Type 2 diabetes mellitus with chronic kidney disease, without long-term current use of insulin, unspecified CKD stage ([facility]) (Primary Dx); Atypical ductal hyperplasia of breast 04/27/2024 Refill [facility]INE [address] [facility] [place] [address] Dominique Alcaraz MD 04/24/2024 Refill [facility] MEDICINE [address] [place] [address] Dominique Alcaraz MD Primary hypertension 04/19/2024 Orders Only GENERIC EXTERNAL DATA DEPARTMENT Provider, Generic External Data 04/18/2024 Refill [facility] MEDICINE [address] [place] [address] Dominique Alcaraz MD History of aortic valve repair; Paroxysmal atrial fibrillation ([facility]) 03/31/2024 Refill [facility]ICINE [address] [facility] [place] [address] Dominique Alcaraz MD Stage 2 chronic kidney disease; Vitamin D deficiency 03/17/2024 Orders Only GENERIC EXTERNAL DATA DEPARTMENT Provider, Generic External Data 02/18/2024 Orders Only GENERIC EXTERNAL DATA DEPARTMENT Provider, Generic External Data from Last 3 Months Immunizations Name Administration [...] antigen) 11/17/2011 [facility] SARS-CoV-2 Vaccination 05/15/2020 Novel [id number] 11/19/2015 Pfizer Covid-19 Vaccine 12+ 01/31/2021 Pfizer [...] Description 05/02/2024 1:00 PM EST Office Visit [facility] [address] [place], [place] [phone] Simran Crooks [address] [place], [place] [phone] 07/25/2024 10:00 AM EDT Medication Management [facility] MEDICINE [address] [place], [place] [phone] Martina Wesley, PharmD [address], [place] [phone] Health Maintenance Due Date Last Done Comments [...] Screening 11/02/2024 11/03/2023 Tobacco Screening 11/02/2024 11/03/2023 Dental X-Ray: Full Mouth 03/10/2026 024, 09/30/2018, 05/17/2014 Mammogram 04/20/2026 04/20/2024, 04/01, 04/13/2022, Additional history exists Colonoscopy 09/03/2028 09/03/2018 Colorectal Cancer Screening 09/03/2028 Zoster Vaccines Completed 06/05/2021, 04/0 08/2021, 04/03/2021, Additional history exists Pneumococcal Vaccine: [...] Pressure 130/62(2023 10:17 AM EST) No Martina Tiwair PharmD Hemoglobin A1c < 7 Result Component 6.8( 10:04 AM EST) No Martina Tiwari PharmD Procedures Procedure Name Priority Date/Time Associated Diagnosis Comments PROTHROMBIN TIME WHOLE BLD POC Routine 05/01/2024 1:32 PM EST Type 2 diabetes mellitus with chronic kidney disease, without long-term current use of insulin, unspecified CKD stage (CMS/HCC) ~PT, ~INR - ANTI COAG CLINIC Routine 05/01/2024 1:32 PM EST Type 2 diabetes mellitus with chronic kidney disease, without long-term current use of insulin, unspecified CKD stage (CMS/HCC) BI MAMMOGRAM SCREENING TOMOSYNTHESIS BILATERAL Routine 04/20/2024 1:15 PM EST PROTHROMBIN TIME WHOLE BLD POC Routine 04/19/2024 [...] current use of insulin, unspecified CKD stage (CMS/[facility]) PROPHYLAXIS - ADULT Routine 10/26/2023 1 1:00 AM EDT LIPID PANEL, STANDARD Routine 07/30/2023 8:15 AM EDT INTRAORAL - COMPLETE SERIES OF RADIOGRAPHIC IMAGES Routine 03/09/2023 1:00 PM EST COMPREHENSIVE ORAL EVALUATION - NEW OR ESTABLISHED PATIENT Routine 03/09/2023 1:00 PM EST DIABETES EYE EXAM Routine 06/18/2022 HM COLONOSCOPY Routine 09/03/2018 12:11 PM EDT from Last 3 Months or Most Recently Relevant to Health Maintenance Results * (ABNORMAL) PROTHROMBIN TIME WHOLE BLD POC (05/01/2024 1:32 PM EST) Only the most recent of4 resultswithin the time period is included. Protime 27.7(H) 11.1 - 13.5 sec [facility] 05/01/2024 1:32 PM EST 05/01/2024 1:34 PM EST us Generic External Data Provider LAB BLOOD ORDERAB LES Final Result [facility] [address] [place] [phone] * (ABNORMAL) ~PT, ~INR - ANTI COAG CLINIC (05/01/2024 1:32 PM EST) Only the most recent of4 resultswithin the time period is included. Prothrombin Time INR 2.3(H) 0.9 - 1.1 [facility] Comment:METER #: [id number] TERNATIONAL NORMALIZED RATIO (INR) REFERENCE RANGES Reference [...] Provider LAB BLOOD ORDERAB LES Final Result [facility] [address] [place] [address] [phone] * BI Mammogram Screening Tomosynthesis Bilateral (04/20/2024 1:15 PM EST) Anatomical Region Laterality Modality Breast Bilateral Mammography 04/20/2024 1:15 PM EST Narrative 04/28/2024 3:03 PM EST ? [facility] [place] ? [address] ?[place] [address] ? Mammography Report ? Signed ? Patient: Mart,Dyan L ?MR#: [id number] ?? [id number] ? : 1955 ?Acct:[id number] ? Age/Sex: 68 / F ?ADM Date: 02/20/25 ? Loc: HO.MAMMO ? Attending Dr: Dominique Alcaraz MD ? Ordering Physician: Dominique Alcaraz MD ?Results: 2B ?? enign Findings ? Date of Service: 04/20/24 ?Follow Up: 1 Year From Orig ?? inal Mammogram ? Procedure(s): MM tomosynthesis screening BI ?? Accession Number(s): [id number] ? cc: Dominique Alcaraz MD ? EXAMINATION: ?? MM SCREENING DIGITAL BREAST TOMOSYNTHESIS, BILATERAL ? CLINICAL INFORMATION: ? Screening. Asymptomatic. ? COMPARISON: ?? Mammography: Comparison is made with available priors ? TECHNIQUE: ?? Digital breast mammography with tomosynthesis is performed in both the ?? craniocaudal and mediolateral oblique views along with computer-aided ?? detection (CAD). ? FINDINGS: ?? There are scattered areas of fibroglandular density (ACR BI-RADS breast ?? composition Category b). ?? Left postsurgical changes. ?? Left marker clip. ?? right dystrophic benign calcifications. ?? There are no significant masses, abnormal calcifications, or other ?? abnormalities. ? MM/MM tomosynthesis screening BI ?? IMPRESSION: [...] due date for their next mammogram. ? Electronically signed by: ??Khushbu Sanchez DO ??04/28/2024 03:00 PM EST ?? RP ? Dictated By: ?Khushbu Sanchez DO ? Signed By: ?<Electronically signed by Khushbu Sanchez, DO in OV> ? 04/28/24 1500 ? DD/ 1315 ? TD/TT: 04/20/24 1351 ? Fish Cleaner: ? Procedure Note Donotuseinterpreter, Image - 04/28/2024 [facility] [address] [place] [address] Mammography Report Signed Patient: Dyan Mart LMR#: [id number] : 1955cct:[id number] Age/Sex: 68 / FADM Date: 04/20/24 Loc: SARAH Attending Dr: Dominique Alcaraz MD Ordering Physician: Dominique Alcaraz MDResults: 2B enign Findings Date of Service: 04/20/24Follow Up: 1 Year From Orig inal Mammogram Procedure(s): MM tomosynthesis screening BI Accession Number(s): [id number] cc: Dominique Alcaraz MD EXAMINATION: MM SCREENING DIGITAL BREAST TOMOSYNTHESIS, BILATERAL CLINICAL INFORMATION: Screening. Asymptomatic. COMPARISON: Mammography: Comparison is made with available priors TECHNIQUE: Digital breast mammography with tomosynthesis is performed in both the craniocaudal and mediolateral oblique views along with computer-aided detection (CAD). FINDINGS: There are scattered areas of fibroglandular density (ACR BI-RADS breast composition Category b). Left postsurgical changes. Left marker clip. right dystrophic benign calcifications. There are no significant masses, abnormal calcifications, or other abnormalities. MM/MM tomosynthesis screening BI IMPRESSION: No mammographic evidence of malignancy. ASSESSMENT: BI-RADS BI-RADS 2 - Benign Findings RECOMMENDATION: Routine annual mammography screening. 1 year F/U This examination should not preclude the clinical evaluation of a suspicious palpable abnormality. This patient's information was entered into a reminder system with a target due date for their next mammogram. Electronically signed by: Khushbu Sanchez DO 04/28/2024 03:[address] [facility] Dictated By: Khushbu Sanchez DO Signed By: <Electronically signed by Khushbu Sanchez DO in OV> 04/28/24 1500 DD/ 1315 TD/TT: 04/20/24 1351 Fish Cleaner: Dominique Alcaraz MD IMG BI PROCEDURES Final Re sult * (ABNORMAL) POCT HGB A1C (01/24/2024 10:04 AM EST) Hemoglobin A1C 6.8(A) 4.0 - 6.0 % QC Media Lot # [id number] Lot# Expiration Date [id number] Blood 01/24/2024 10:0 4 AM EST Dominique Alcaraz MD POINT OF CARE TEST ENTER/E DIT ORDERABLES Final Result * (ABNORMAL) Lipid Panel, Standard (07/30/2023 8:15 AM EDT) Triglycerides 239(H) <150 mg/dL [facility] Comment:Desirable Triglyceri de: less than 150 mg/dLBorderline High Triglyceride 150-199 mg/dLHigh Triglyceride: 200-499 mg/dLVery High Triglyceride: greater than or equal to 5OO mg/dL Cholesterol 154 <200 mg/dL [facility] Comment:Desirable Cholestero l: less than 200 mg/dLBorderline High Cholesterol: 200-239 mg/dLHigh Cholesterol: greater than 239 mg/dL LDL Cholesterol Calculated 70 <100 mg/dL [facility] Comment:Desirable LDL: less than 100 mg/dLNear Optimal/Above Optimal LDL: 110- 129 mg/dLBorderline High LDL: 130-159 mg/dLHigh LDL: 160-189 mg/dLVery High LDL: greater than or equal to 190 mg/dL HDL Cholesterol 37(L) >40 mg/dL [facility] Comment:Desirable HDL: great er than 40 mg/dL Note: This HDL assay may give artificially low results in patients with liver disease. 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
--- OUTSIDE RECORDS SUMMARY | 2024-05-01 15:55 | XMS_ITS | Encounter Summary ---
Author Organization [employer] [facility] Address [address] [facility] 7t [place] [address] Care Team Providers Care Chemical Waste Management Technician Name Role Phone Dominique Alcaraz MD Primary Care Provider + [phone] Martina Wesley PharmD Unavailable Refugio Huston MD Unavailable [phone] Chun Álvarez MD Unavailable [phone] Moses Dumont MD Unavailable [phone] Reason for Visit * Reason Onset Date Comments Pre op 09/23/2023 Encounter Details Date Type Department Care Team (Late st Contact Info) Description 09/23/2023 Telephone [facility] MEDICINE [address] [place], [place] [phone] Dominique Alcaraz MD 230 [place], [place] [phone] Pre op Social History Tobacco Use Types Packs/Day Years Used Date Smoking Tobacco: Never Smokeless Tobacco: Never Depression Answer Date Recorded Patient Health Questionnaire-9 Score 0 07/08/2022 Housing Stability Answer Date Recorded What is your housing situation today? I have jase guillermo 12/17/[address] you li [...] No Surgeon's name: mercedes mohan Facility name: [address] [address] Surgeon's office number: [phone] Surgeon's office fax number: [phone] Contact name (person you spoke with): [place] Last office note from surgeon requested: No * Telephone Encounter - Bharti Fregoso - 09/23/2023 12:23 PM EDT Date of Surgery: right eye 11/15/23 and left eye 11/28 Surgical procedure being done: cataract surgery both eyes Type of anesthesia: local anesthesia Lab needed: No EKG: No Surgeon's name: mercedes mohan Facility name: [address], [place] [address] Surgeon's office number: [phone] Surgeon's office fax number: [phone] Contact name (person you spoke with): [place] Last office note from surgeon requested: No documented in this encounter Plan of Treatment Upcoming Encounters Date Type Department Care Team (Late st Contact Info) Description 05/02/2024 1:00 PM EST Office Visit [facility] [address] [place] [address] Simón Crooksine [address] [place], [place] [phone] 07/25/2024 10:00 AM EDT Medication Management [facility] [address] [place] [address] Martina Wesley PharmD [address] [place] [address] documented as of this encounter Goals Goal Patient Goal Type Associated Problems Recent Progress Patient-Stated? Author Blood Pressure < 140/90 Blood Pressure 130/62(2023 10:17 AM EST) No Martina Tiwari, PharmD Hemoglobin A1c < 7 Result Component 6.8( 10:04 AM EST) No Martina Tiwari PharmD documented as of this encounter Visit Diagnoses Not on filedocumented in this encounter Additional Health Concerns Assessment Noted Time PHQ-9 Depression Total Score: 0 07/09/19 3:56 PM EDT documented as of this encounter Care Teams Chemical Waste Management Technician Relationship Specialty Start Date End Date Dominique Alcaraz MD [address] [place] [address] PCP - General Family Medicine 12/20/12 Martina Wesley, PharmD [address] [place] [address] Pharmacist Internal Medicine 03/12/22 Refugio Huston MD [address] [place] [address] Nephrology 05/01/24 Chun Álvarez MD 575 [place] [address] Hematology and Oncology 05/01/24 Moses Dumont MD 5[address] [place] [address] Cardiology 05/01/24 documented as of this encounter
--- OUTSIDE RECORDS SUMMARY | 2024-05-01 15:55 | XMS_ITS | Encounter Summary ---
Author Organization [employer] Address [address] [facility] 7t [place] [address] Care Team Providers Care Customer Engagement Manager Name Role Phone Doimnique Alcaraz MD Primary Care Provider + [phone] Martina Wesley PharmD Unavailable [phone] Encounter Details Date Type Department Care Team [...] Description 05/02/2024 1:00 PM EST Office Visit [facility] 91 [place] [address] Simran Crooks 91 [place] [address] 07/25/2024 10:00 AM EDT Medication Management [facility] MEDICINE 230 [place] [address] Martina Wesley, PharmD 230 [place] [address] documented as of this encounter Goals Goal Patient Goal Type Associated Problems Recent Progress Patient-Stated? Author Blood Pressure < 140/90 Blood Pressure 130/62(2023 10:17 AM EST) No Jamaris-Maria Isabel Jaffesa, PharmD Hemoglobin A1c < 7 Result Component 6.8( 10:04 AM EST) No Martina Tiwari, PharmD documented as of this encounter Procedures Procedure Name Priority Date/Time Associated Diagnosis Comments BI MAMMOGRAM SCREENING TOMOSYNTHESIS BILATERAL Routine 04/20/2024 1:15 PM EST PROTHROMBIN TIME WHOLE BLD POC Routine 04/19/2024 10:51 AM EST ~PT, ~INR - ANTI COAG CLINIC Routine 04/19/2024 10:51 AM EST documented in this encounter Results * BI Mammogram Screening Tomosynthesis Bilateral (04/20/2024 1:15 PM EST) Anatomical Region Laterality Modality Breast Bilateral Mammography 04/20/2024 1:15 PM EST Narrative 04/28/2024 3:03 PM EST ? [facility] ? [address] ?[place] [address] ? Mammography Report ? Signed ? Patient: Barron,Dyan L ?MR#: [id number] ?? [id number] ? : 1955 ?Acct:[id number] ? Age/Sex: 68 / F ?ADM Date: 04/20/24 ? Loc: HO.MAMMO ? Attending Dr: Dominique Alcaraz MD ? Ordering Physician: Dominique Alcaraz MD ?Results: 2B ?? enign Findings ? Date of Service: 04/20/24 ?Follow Up: 1 Year From Orig ?? inal Mammogram ? Procedure(s): MM tomosynthesis screening BI ?? Accession Number(s): [id number] ? cc: Dominique Alcaraz MD ? EXAMINATION: [...] ??Khushbu Sanchez DO ??04/28/2024 03:00 PM EST ? Dictated By: ?Khushbu Sanchez DO ? Signed By: ?<Electronically signed by Khushbu Sanchez, DO in OV> ? 04/28/24 1500 ? DD/ 1315 ? TD/TT: 04/20/24 1351 ? Cane Stripper: ? Procedure Note Ivan, Image - 04/28/2024 [facility] [address] [place] [address] Mammography Report Signed Patient: Dyan Mart LMR#: [id number] : 1955cct:[id number] Age/Sex: 68 / FADM Date: 04/20/24 Loc: HO.MAMMO Attending Dr: Dominique Alcaraz MD Ordering Physician: Dominique Alcaraz MDResults: 2B enign Findings Date of Service: 04/20/24Follow Up: 1 Year From Orig inal Mammogram Procedure(s): MM tomosynthesis screening BI Accession Number(s): [id number] cc: Dominique Alcaraz MD EXAMINATION: MM SCREENING [...] by: Khushbu Sanchez DO 04/28/2024 03:00 PM EST RP Dictated By: Khushbu Sanchez DO Signed By: <Electronically signed by Khushbu Sanchez DO in OV> 04/28/24 1500 DD/ 1315 TD/TT: 04/20/24 1351 Cane Stripper: us Dominique Alcaraz MD IMG BI PROCEDURES Final Re sult * (ABNORMAL) PROTHROMBIN TIME WHOLE BLD POC (04/19/2024 10:51 AM EST) Protime 33.1(H) 11.1 - 13.5 sec [facility] 04/19/2024 10:5 1 AM EST 04/19/2024 3:58 PM EST us Generic External Data Provider LAB BLOOD ORDERAB LES Final Result [facility] [address] [place] [phone] * (ABNORMAL) ~PT, ~INR - ANTI COAG CLINIC (04/19/2024 10:51 AM EST) Prothrombin Time INR 2.8(H) 0.9 - 1.1 [facility] Comment:METER #: [id number] TERNATIONAL NORMALIZED RATIO (INR) REFERENCE RANGES Reference [...] ORDERAB LES Final Result Performing Organization Address City/State/[facility] Co de Phone Number [facility] [address] [place] [phone] documented in this encounter Visit Diagnoses Not on filedocumented in this encounter Additional Health Concerns Assessment Noted Time PHQ-9 Depression Total Score: 8 11/03/19 24 9:00 AM EDT documented as of this encounter Care Teams Customer Engagement Manager Relationship Specialty Start Date End Date Dominique Alcaraz MD 230 [place] [address] PCP - General Family Medicine 12/20/12 Martina Wesley PharmD 230 [place] [address] Pharmacist Internal Medicine 03/12/22 documented as of this encounter
--- OUTSIDE RECORDS SUMMARY | 2024-05-01 15:55 | XMS_ITS | Encounter Summary ---
Author Organization [facility] Address [address] [place] [address] Phone Care Team Providers Care Research Geologist Name Role Phone Dominique Alcaraz MD Primary Care Provider Brent gomez Encounter Details Date Type Department Care Team (Late Contact Info) Description 10/17/2021 Orders Only [facility] [address] [place] [address] Lyle Blancas MD [address] [place] [address] Dr. [place] [address] Stage 3a chronic kidney disease [...] Visit [facility] [address] [place] [address] Refugio Huston MD [address] [place] [address] Dr. [place] [address] Scheduled Orders Name Type Priority [...] (HCC) documented in this encounter Care Teams Research Geologist Relationship Specialty Start Date End Date Dominique Alcaraz MD PCP - General 01/03/19 documented as of this encounter
--- OUTSIDE RECORDS SUMMARY | 2024-05-01 15:55 | XMS_ITS | Encounter Summary ---
Author Organization [facility] Address [address] [facility] [address] 7t [place] [address] Care Team Providers Care Material Disposition Inspector Name Role Phone Dominique Alcaraz MD Primary Care Provider + [phone] Martina Wesley PharmD Unavailable [phone] Reason for Visit * Reason Comments Med Refill Encounter Details Date Type Department Care Team (Late st Contact Info) Description 04/18/2024 Refill [facility] MEDICINE 230 [place] [address] Dominique Alcaraz MD 230 [place], [place] [phone] History of aortic valve repair; Paroxysmal atrial [...] 04/18/2024 3:29 PM EST Pt follows with [facility]. Last seen by them 03/17/24. INR was 2.9 at that time. Is on monthly INR schedule. Has been compliant with INR and coumadin dosing via coumadin clinic. RN approves and queued refills. documented in this encounter Plan of Treatment Upcoming Encounters Date Type Department Care Team (Late st Contact Info) Description 05/02/2024 1:00 PM EST Office Visit [facility] 91 [place] [address] Simran Crooks 91 [place], [place] [phone] 07/25/2024 10:00 AM EDT Medication Management [facility] MEDICINE 230 [place], [place] [phone] Martina Wesley, PharmD 230 [place], [place] [phone] documented as of this encounter Goals Goal [...] documented as of this encounter Care Teams Material Disposition Inspector Relationship Specialty Start Date End Date Dominique Alcaraz MD 230 [place] [address] PCP - General Family Medicine 12/20/12 Martina Wesley PharmD 230 [place] [address] Pharmacist Internal Medicine 03/12/22 documented as of this encounter
--- OUTSIDE RECORDS SUMMARY | 2024-05-01 15:55 | XMS_ITS | Encounter Summary ---
Author Organization [employer] [facility] Address [address] [facility] 7t [place] [address] Care Team Providers Care Pathology Laboratory Aides Teacher Name Role Phone Dominique Alcaraz MD Primary Care Provider + [phone] Martina Wesley PharmD Unavailable Refugio Huston MD Unavailable [phone] Chun Álvarez MD Unavailable [phone] Moses Dumont MD Unavailable [phone] Reason for Visit * Reason Comments Med Refill Encounter Details Date Type Department Care Team (Late st Contact Info) Description 03/17/[address] [facility] MED[facility]INE 230 [place], [place] [phone] Dominique Alcaraz MD 230 [place], [place] [phone] Vitamin D deficiency; Stage 2 chronic kidney [...] Description 05/02/2024 1:00 PM EST Office Visit [facility] 91 [place] [address] Simran Crooks 91 [place] [address] 07/25/2024 10:00 AM EDT Medication Management [facility] 230 [place] [address] Martina Wesley, PharmD 230 [place] [address] documented as of this encounter Goals Goal Patient Goal Type Associated Problems Recent Progress Patient-Stated? Author Blood Pressure < 140/90 Blood Pressure 130/62(2023 10:17 AM EST) No Jamaris-Maria Isabel Jaffesa, PharmD Hemoglobin A1c < 7 Result Component 6.8( 10:04 AM EST) No Jamaris-Martina Jaffe, PharmD documented as of this encounter Visit Diagnoses Diagnosis Vitamin D deficiency Stage 2 chronic kidney disease documented in this encounter Additional Health Concerns Assessment Noted Time PHQ-9 Depression Total Score: 0 07/09/19 23 3:56 PM EDT documented as of this encounter Care Teams Pathology Laboratory Aides Teacher Relationship Specialty Start Date End Date Dominique Alcaraz MD 230 [place] [address] PCP - General Family Medicine 12/20/12 Martina Wesley, Irma 230 [place] [address] Pharmacist Internal Medicine 03/12/22 Refugio Huston MD 2[address] [place] [address] Nephrology 05/01/24 Chun Álvarez MD 575 [place] [address] Hematology and Oncology 05/01/24 Moses Dumont MD 596 [place] [address] Cardiology 05/01/24 documented as of this encounter
--- OUTSIDE RECORDS SUMMARY | 2024-05-01 15:55 | XMS_ITS | Encounter Summary ---
Author Organization [facility] Address [address] [place] [address] Phone Care Team Providers Care Senior Account Representative Name Role Phone Dominique Alcaraz MD Primary Care Provider U patricia Encounter Details Date Type Department Care Team (Late st Contact Info) Description 11/04/2021 Documentation Only [facility] [address] [place] [address] Cesia Perry PA Social History [...] [facility] [address] [place] [address] Refugio Huston MD [address] [place] [address] [place] [address] documented as of this encounter Visit Diagnoses Not on filedocumented in this encounter Care Teams Senior Account Representative Relationship Specialty Start Date End Date Dominique Alcaraz MD PCP - General 01/03/19 documented as of this encounter
--- OUTSIDE RECORDS SUMMARY | 2024-05-01 15:55 | XMS_ITS | Encounter Summary ---
Author Organization [employer] [facility] Address [address] [facility] 7t [place] [address] Care Team Providers Care Web Systems Developer Name Role Phone Dominique Alcaraz MD Primary Care Provider Martina Wesley PharmD Unavailable Refugio Huston MD Unavailable [phone] Chun Álvarez MD Unavailable [phone] Moses Dumont MD Unavailable [phone] Reason for Visit * Reason Comments Med Refill Encounter Details Date Type Department Care Team (Late st Contact Info) Description 05/07/2023 Refill [facility] MEDICINE 230 [place], [place] [phone] Dominique Alcaraz MD 230 [place], [place] [phone] Type 2 diabetes mellitus without complication, 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 senior care insulin use ([facility]) Social History Tobacco Use Types Packs/Day Years [...] 05/02/2024 1:00 PM EST Office Visit [facility] 91 [place] [address] Daksha Simran 91 [place], [place] [phone] 07/25/2024 10:00 AM EDT Medication Management [facility] MEDICINE 230 [place], [place] [phone] Martina Wesley, BetsyD 230 [place] [address] documented as of this encounter Goals Goal Patient Goal Type Associated Problems Recent Progress Patient-Stated? Author Blood Pressure < 140/90 Blood Pressure 130/62(2023 10:17 AM EST) No Martina Tiwari, PharmD Hemoglobin A1c < 7 Result Component 6.8( 10:04 AM EST) No Martina Tiwari PharmKourtney documented as of this encounter Visit Diagnoses Diagnosis Type 2 diabetes mellitus without complication, 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 senior care insulin use ([facility]) documented in this encounter Additional Health Concerns Assessment Noted Time PHQ-9 Depression Total Score: 0 07/09/19 23 3:56 PM EDT documented as of this encounter Care Teams Web Systems Developer Relationship Specialty Start Date End Date Dominique Alcaraz MD 230 [place] [address] PCP - General Family Medicine 12/20/12 Martina Wesley PharmD 230 [place] [address] Pharmacist Internal Medicine 03/12/22 Refugio Huston MD [address] [place] [phone] Nephrology 05/01/24 Chun Álvarez MD 575 [place] [address] Hematology and Oncology 05/01/24 Moses Dumont MD 596 [place] [address] Cardiology 05/01/24 documented as of this encounter
== END 2024-05-01 13:42 | disposition home or self-care (01) ==
LOC: HO.ACS 13:29
PROVIDERS: PCP Family Medicine; Visit Provider Internal Medicine
DX: Z79.01 Long term (current) use of anticoagulants (principal)

== ENCOUNTER → 2024-05-01 13:29 | Outpatient (BNVA) | payer OTHER, SELFPAY | PROVIDERS: PCP Family Medicine; Visit Provider Internal Medicine | DX: Z95.2 Presence of prosthetic heart valve (principal); Z79.01 Long term (current) use of anticoagulants; Z51.81 Encounter for therapeutic drug level monitoring | CPT/HCPCS: 85610; 99211 ==

== ENCOUNTER 2024-05-19 12:58 | Outpatient (AMB) | payer OTHER, SELFPAY ==
[2024-05-19 13:06] LABS: Prothrombin Time Whole Bld POC 30.4 sec (11.1-13.5); ~PT, ~INR - Anti Coag Clinic 2.5 (0.9-1.1)
--- NOTE | 2024-05-19 13:27 | MHC.OFFVISCO ---
Intake Intake Visit Reasons: Anticoagulation Allergies lisinopril [LISINOPRIL] Allergy (Intermediate, Verified 05/19/24 13:01) rash/cough, palpitations Medication List - Last Reconciled 05/19/24 by Kianna Aviles RN amlodipine 5 mg PO DAILY aspirin 81 mg PO DAILY atorvastatin 80 mg PO BEDTIME blood sugar diagnostic (FreeStyle Lite Strips) As directed blood-glucose meter (FreeStyle [place] Lite kit) As directed calcium carbonate (Calcium Antacid) mg PO cholecalciferol (vitamin D3) (Vitamin D3) 25 mcg PO DAILY cyanocobalamin (vitamin B-12) (Vitamin B-12) 500 mcg PO DAILY empagliflozin (Jardiance) 25 mg PO DAILY ferrous sulfate 325 mg PO DAILY lancets (TRUEplus Lancets) As directed metformin ER 500 mg PO QPM metoprolol tartrate 1 tab PO BID telmisartan (Micardis) 80 mg PO DAILY warfarin 5 mg See Protocol PO DIRECTED warfarin 2.5 mg See Protocol PO DIRECTED Nursing Note INR: 2.5 in therapeutic range (2.5-3.5) Medications and supplements reviewed No changes in health, diet, medications, or supplements, Denies any signs and symptoms of bleeding or bruising or clotting. Bleeding, bruising, clotting discussed Nutritional guidance given less greens Dose: same F/U INR: 06/05/24 prior dental appt Patient verbalizes understanding of instructions given Anti-Coag Initial Assessment Social Hx Patient Tobacco Use Status: Never used Tobacco alcohol intake: former Alcohol intake frequency: does not drink Coding Level of Care Code Est Patient Level 1 Diagnoses Current use of anticoagulant therapy Z79.01 Assessment & Plan Assessment & Plan (1) Current use of anticoagulant therapy: Code(s): Z79.01 - intermediate frame tender (current) 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
--- OUTSIDE RECORDS SUMMARY | 2024-05-19 15:20 | XMS_ITS | Encounter Summary ---
Author Organization [facility] Address [address] [place] [address] Phone Care Team Providers Care Swim Coach Name Role Phone Dominique Alcaraz MD Primary Care Provider Brent gomez Encounter Details Date Type Department Care Team (Late Contact Info) Description 10/17/2021 Orders Only [facility] [address] [place] [address] Lyle Blancas MD [address] [place] [address] Dr. Yamile[place] [address] Stage 3a chronic kidney disease [...] Visit [facility] [address] [place] [address] Refugio Huston MD [address] [place] [address] Dr. Yamile[place] [address] Scheduled Orders Name Type Priority [...] (HCC) documented in this encounter Care Teams Swim Coach Relationship Specialty Start Date End Date Dominique Alcaraz MD PCP - General 01/03/19 documented as of this encounter
--- OUTSIDE RECORDS SUMMARY | 2024-05-19 15:20 | XMS_ITS | Encounter Summary ---
Author Organization [facility] Address [address] [place] [address] Phone Care Team Providers Care Electrocardiograph Repairer Name Role Phone Dominique Alcaraz MD Primary Care Provider Brent gomez Encounter Details Date Type Department Care Team (Late Contact Info) Description 10/27/2023 Documentation Only [facility] [address] [place] [address] Michelle Linares [address] [place] [address] Social History Tobacco Use Types [...] [facility] [address] [place] [address] Refugio Huston MD [address] [place] [address] [place] [address] documented as of this encounter Visit Diagnoses Not on filedocumented in this encounter Care Teams Electrocardiograph Repairer Relationship Specialty Start Date End Date Dominique Alcaraz MD PCP - General 01/03/19 documented as of this encounter
--- OUTSIDE RECORDS SUMMARY | 2024-05-19 15:20 | XMS_ITS | Encounter Summary ---
Author Organization [facility] Address [address] [place] [address] Phone Care Team Providers Care Head Tennis Coach Name Role Phone Dominique Alcaraz MD Primary Care Provider U [email or web address] Reason for Visit * Reason Comments Med Refill Encounter Details Date Type Department Care Team ([facility] Contact Info) Description 02/18/2021 Refill [facility] [address] [place] [phone] Lyle Blancas MD [address] [facility] [place] [address] Social History Tobacco Use Types [...] Upcoming Encounters Date Type Department Care Team ([facility] Contact Info) Description 07/05/2024 1:45 PM EDT Office Visit [facility] [place], [address] [facility] [place] [address] Refugio Huston MD [address] [facility] [place] [address] documented as of this encounter Visit Diagnoses Not on filedocumented in this encounter Care Teams Head Tennis Coach Relationship Specialty Start Date End Date Dominique Alcaraz MD PCP - General 01/03/19 documented as of this encounter
--- OUTSIDE RECORDS SUMMARY | 2024-05-19 15:20 | XMS_ITS | Encounter Summary ---
Author Organization [facility] Address [address] [place] [address] Phone Care Team Providers Care Blow Moulding Machine Operator Name Role Phone Dominique Alcaraz MD Primary Care Provider U patricia Encounter Details Date Type Department Care Team (Late st Contact Info) Description 03/12/2023 Documentation Only [facility] [address] [place] [address] Cesia Perry PA Social History [...] Visit [facility] [address] [place] [address] Refugio Huston MD [address] [place] [address] [place] [address] documented as of this encounter Visit Diagnoses Not on filedocumented in this encounter Care Teams Blow Moulding Machine Operator Relationship Specialty Start Date End Date Dominique Alcaraz MD PCP - General 01/03/19 documented as of this encounter
--- OUTSIDE RECORDS SUMMARY | 2024-05-19 15:20 | XMS_ITS | Encounter Summary ---
Author Organization [facility] Address [address] [place] [address] Phone Care Team Providers Care Innovation Analyst Name Role Phone Dominique Alcaraz MD Primary Care Provider U patricia Encounter Details Date Type Department Care Team (Late st Contact Info) Description 11/04/2021 Documentation Only [facility] [address] [place] [address] Cesia Perry PA Social History [...] [facility] [address] [place] [address] Refugio Huston MD [address] [place] [address] [place] [address] documented as of this encounter Visit Diagnoses Not on filedocumented in this encounter Care Teams Innovation Analyst Relationship Specialty Start Date End Date Dominique Alcaraz MD PCP - General 01/03/19 documented as of this encounter
--- OUTSIDE RECORDS SUMMARY | 2024-05-19 15:20 | XMS_ITS | Encounter Summary ---
Author Organization [facility] Address [address] [place] [address] Phone Care Team Providers Care Auxiliary Engineer Name Role Phone Dominique Alcaraz MD Primary Care Provider U patricia Encounter Details Date Type Department Care Team (Late st Contact Info) Description 06/08/2022 Documentation Only [facility] [address] [place] [address] Cesia Perry PA Social History [...] Visit [facility] [address] [place] [place] [address] Refugio Huston MD [address] [place] [address] [place] [address] documented as of this encounter Visit Diagnoses Not on filedocumented in this encounter Care Teams Auxiliary Engineer Relationship Specialty Start Date End Date Dominique Alcaraz MD PCP - General 01/03/19 documented as of this encounter
--- OUTSIDE RECORDS SUMMARY | 2024-05-19 15:20 | XMS_ITS | Clinical Summary ---
Author Organization [facility] [place], Address [address] [place] [address] [place] [address] Phone Care Team Providers Care Loading And Unloading Supervisor Name Role Phone Dominique Alcaraz MD [...] Quadrivalent, With Preservative 01/27,03/19/2015 Influenza, Unspecified 12/04/2021,01/04/2014,07/2010 E la Carte SARS-COV-2 05/15/2020 Pfizer SARS-COV-2 01/31/2021 Pneumococcal Conjugate [...] Visit [facility] [address] [place] [address] Refugio Huston MD [address] [place] [address] Health Maintenance Due Date Last Done Comments [...] to complete this topic Insurance MEDICAID [place] [facility] CARE DUAL SNP ([id number]) Care Teams Loading And Unloading Supervisor Relationship Specialty Start Date End Date Kieran, Dominique Davies MD PCP - General 01/03/19
== END 2024-05-19 13:26 | disposition home or self-care (01) ==
LOC: HO.ACS 12:58
PROVIDERS: PCP Family Medicine; Visit Provider Internal Medicine Medical Oncology
DX: Z79.01 Long term (current) use of anticoagulants (principal)

== ENCOUNTER → 2024-05-19 12:58 | Outpatient (BNVA) | payer OTHER, SELFPAY | PROVIDERS: PCP Family Medicine; Visit Provider Internal Medicine Medical Oncology | DX: Z95.2 Presence of prosthetic heart valve (principal); Z79.01 Long term (current) use of anticoagulants; Z51.81 Encounter for therapeutic drug level monitoring | CPT/HCPCS: 85610; 99211 ==

== ENCOUNTER → 2024-06-05 13:31 | Outpatient (BNVA) | payer OTHER, SELFPAY | PROVIDERS: PCP Family Medicine; Visit Provider Internal Medicine Medical Oncology | DX: Z95.2 Presence of prosthetic heart valve (principal); Z51.81 Encounter for therapeutic drug level monitoring; Z79.01 Long term (current) use of anticoagulants | CPT/HCPCS: 85610; 99211 ==

== ENCOUNTER 2024-06-27 07:51 | Outpatient (REF) | payer OTHER, SELFPAY ==
--- OUTSIDE RECORDS SUMMARY | 2024-06-27 07:56 | XMS_ITS | Clinical Summary ---
Author Organization [employer] [facility] Address [address] [facility] 7[address] [place] [address] Care Team Providers Care Laborer Tanbark Name Role Phone Dominique Alcaraz MD Primary Care Provider + [phone] Martina Wesley PharmD Unavailable [phone] Refugio Huston MD Unavailable [phone] Chun Álvarez MD Unavailable [phone] Moses Dumont MD Unavailable [phone] Allergies Active Allergy Reactions Criticality Noted Date Comments Lisinopril Palpitations,Shortne ss of breath High 05/22/2010 Other reaction(s): palpitations, SOB Medications aspirin 81 MG EC tablet Take 1 tablet by mouth in the morning. 3 Active Ferrous Sulfate (iron) 325 (65 Fe) MG tablet TAKE 1 TABLET BY MOUTH ONCE DAILY WITH BREAKFAST 3 Active atorvastatin (Lipitor) 80 MG tabletIndication s:Type 2 diabetes mellitus without complication, 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 [facility] insulin use ([facility]) TAKE 1 TABLET BY MOUTH ONCE DAILY 30 tablet 11 4 Active glucose blood (FREESTYLE LITE) test stripIndications :Type 2 diabetes mellitus with chronic kidney disease, without long-term current use of insulin, unspecified CKD stage ([facility]) TEST BLOOD SUGAR TWICE DAILY 100 each 11 4 Active cyanocobalamin (Vitamin B-12) 500 MCG tablet Take 500 mcg by mouth Once per day. PT PURCHASING OTC Active Jardiance 25 MGIndications:Ty pe 2 diabetes mellitus with chronic kidney disease, without long-term current use of insulin, unspecified CKD stage (CMS/HCC) Take 25 mg by mouth Once per day. 4 Active calcium carbonate (Tums) 500 MG chewable tabletIndication s:Osteopenia of multiple sites Chew 1 tablet (500 mg) 2 times daily. 60 tablet 11 4 11/03/19 25 Active Magnesium 500 MG capsule PT PURCHASING OTC Active telmisartan (MIcarDIS) 80 MG tabletIndication s:Primary hypertension Take 1 tablet by mouth once daily 90 tablet 1 4 Active amLODIPine (Norvasc) 5 MG tabletIndication s:Hypertension, unspecified type Take 1 tablet (5 mg) by mouth Once per day. 90 tablet 1 4 Active metFORMIN XR (Glucophage-XR) 500 MG 24 hr tabletIndication s:Stage 2 chronic kidney disease TAKE 1 TABLET BY MOUTH EVERY DAY 30 tablet 11 5 Active cholecalciferol (D3-1000) 25 MCG (1000 UT) capsuleIndicatio ns:Vitamin D deficiency TAKE 1 CAPSULE BY MOUTH EVERY DAY 30 capsule 11 5 Active warfarin (Coumadin) 2.5 MG tabletIndication s:History of aortic valve repair TAKE DIRECTED BY COUMADIN CLINIC 60 tablet 3 5 Active warfarin (Coumadin) 5 MG tabletIndication s:History of aortic valve repair,Paroxysma l atrial fibrillation (CMS/HCC) TAKE DIRECTED BY COUMADIN CLINIC 30 tablet 3 5 Active metoprolol tartrate (Lopressor) 50 MG tabletIndication s:Primary hypertension TAKE 1 TABLET BY MOUTH TWICE DAILY 60 tablet 11 5 Active amoxicillin (Amoxil) 500 MG capsule TAKE 4 CAPSULES BY MOUTH ONCE BEFORE de SURGERY 4 capsule 2 5 Active TRUEplus Lancets 33G miscIndications: Type 2 diabetes mellitus with chronic kidney disease, without long-term current use of insulin, unspecified CKD stage (CMS/HCC) TEST BLOOD SUGAR TWICE DAILY 100 each 11 5 Active chlorhexidine (Peridex) 0.12 % solution Use 15 mL in the mouth or throat if needed in the morning, at noon, and at bedtime (PROPHYLAXIS) for up to 5 days. 110 mL 5 06/12/19 25 Active Problems Patient Care Coordination No te Formatting of this note migh t be different from the original. Enrolled in [facility] DM and [facility] HTN clinic with Martina Wesley PharmD, [facility] Support Team Member: Jaci Sound Tester Agency: [employer] Problem Noted Date Diagnosed Date Cardiac risk [...] Cano last done 06/18/2022 -dental home is [facility] -Health care proxy 11/03/23 Assessment & Plan (11/03/2023 9:32 AM EDT): -next physical exam due after 11/05/2023 -eye care facilitated by Dr. Cano last done 06/18/2022 -dental home is [facility] -Health care proxy 11/03/23 Assessment & Plan (11/04/2022 9:18 AM EDT): -next physical exam due after 11/05/2023 -eye care facilitated by Dr. Cano last done 05/2022 -dental home is [facility] Low back pain without sciatica 11/04/2022 Overview (11/04/2022): PT referral done 11/04/2022. Assessment & Plan (11/04/2022 9:23 AM EDT): PT referral done 11/04/2022. Pre-op evaluation 08/05/2022 Overview (11/03/2023): For cataract surgery at [facility] with Dr. Gusman. Pt with mechanical [...] surgery on 11/15/23. After this appointment the submarine worker will be able to determine what medications should or can be held. Assessment & Plan (11/03/2023 9:26 AM EDT): For cataract surgery at [facility] with Dr. Gusman. Pt with mechanical [...] was treated medically as if she was post-DC. Pt was started on both Aspirin and Lipitor. No longer on Plavix. She was on on Digoxin 250 mcg but this was DISCONTINUED in Dec 2012 due to sinus pauses noted at cardiac rehab and her Metoprolol was increased to 25 mg po TID, she is now on aspirin and Coumadin. Last note from cardiac surgery is dated 12/08/12. Her submarine worker is Dr. Moses Dumont, last visit 05/2018 -PT NEEDS ANTIBIOTIC PROPHLAXIS PRIOR TO DENTAL WORK - RX AMOXICILLIN 2G PRIOR TO DENTAL WORK -Seen by Dr. Dumont 12/2022 recommending follow up 1 year -note from Patient followed at [facility] with Dr. John Dumont, DO. [...] was treated medically as if she was post-DC. Pt was started on both Aspirin and Lipitor. No longer on Plavix. She was on on Digoxin 250 mcg but this was DISCONTINUED in Dec 2012 due to sinus pauses noted at cardiac rehab and her Metoprolol was increased to 25 mg po TID, she is now on aspirin and Coumadin. Last note from cardiac surgery is dated 12/08/12. Her submarine worker is Dr. Moses Dumont, last visit 05/2018 [...] was treated medically as if she was post-DC. Pt was started on both Aspirin and Lipitor. No longer on Plavix. She was on on Digoxin 250 mcg but this was DISCONTINUED in Dec 2012 due to sinus pauses noted at cardiac rehab and her Metoprolol was increased to 25 mg po TID, she is now on aspirin and Coumadin. Last note from cardiac surgery is dated 12/08/12. Her submarine worker is Dr. Moses Dumont, last visit 05/2018 [...] in 2005 - Previously followed by the [facility]. Last note dated 10/03/2013. Follow up annually for mammo and office visit. - [facility] no longer accepting pt's insurance so now followed at [facility] q [address] Pryor. -Last [...] in 2005 - Previously followed by the [facility]. Last note dated 10/03/2013. Follow up annually for mammo and office visit. - [facility] no longer accepting pt's insurance so now followed at [facility] q [address] Pryor. -Last seen by oncology on 08/25/2019. 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 Last note dated 10/03/2013. Follow up annually for mammo and office visit. - [facility] no longer accepting pt's insurance so now followed at [facility] q [address] Pryor. -Last seen by oncology on 08/25/2019. -Recent Mammo 04/11/21 BI-RADS 2 benign Atrial fibrillation 03/26/2013 Overview (12/22/2023): - continue choric anticoagulation INR goal 2.5-3.5 due to heart valve repair -note from Patient followed at [facility] with Dr. John Dumont DO. [...] -Diabetic eye exam: 05/2022 -Diabetic foot exam: 9/4/24 -Continue lifestyle modifications -Continue current medications -Metformin [...] 80mg daily -ordered lipid panel 11/03/23 -offered [place]-3s, bu wants to trial lifestyle changes. Will [...] 80mg daily -ordered lipid panel 11/03/23 -offered [place]-3s, bu wants to trial lifestyle changes. Will [...] Encounters Date Type Department Care Team Description 06/06/2024 3:00 PM EDT Office Visit [facility] [address] [place] [address] Brendan Walsh DMD 06/05/2024 Orders Only GENERIC EXTERNAL DATA DEPARTMENT Provider, Generic External Data 05/19/2024 Orders Only GENERIC EXTERNAL DATA DEPARTMENT Provider, Generic External Data 05/04/2024 Abstract [facility] [address] [place] [address] Sunitha Singleton MA 05/02/2024 1:00 PM EST Office Visit [facility] [address] [place] [address] Simran Crooks Periodontal disease (Primary Dx) 05/01/2024 Orders Only [facility] [address] [place] [address] Dominique Alcaraz MD Type 2 diabetes mellitus with chronic kidney disease, without long-term current use of insulin, unspecified CKD stage (CMS/[facility]) (Primary Dx); Atypical ductal hyperplasia of breast 04/27/2024 Refill [facility] [address] [place] [address] Dominique Alcaraz MD 04/24/2024 Refill [facility] [address] [place] [address] Dominique Alcaraz MD Primary hypertension 04/19/2024 Orders Only GENERIC EXTERNAL DATA DEPARTMENT Provider, Generic External Data 04/18/2024 Refill [facility] [address] [place] [phone] Dominique Alcaraz MD History of aortic valve repair; Paroxysmal atrial fibrillation (CMS/HCC) 03/31/2024 Refill [facility] [address] [place] [address] Dominique Alcaraz MD Stage 2 chronic kidney disease; Vitamin D deficiency from Last 3 Months Immunizations Name Administration [...] antigen) 11/17/2011 [place] SARS-CoV-2 Vaccination 05/15/2020 Novel [id number] 11/19/2015 Pfizer Covid-19 Vaccine 12+ 01/31/2021 Pfizer [...] the past 12 months, has t he [employer], gas, oil or water [employer] threatened to shut off services in your [...] Sign Reading Time Taken Comments Blood Pressure 134/78 06/06/2024 1:21 PM EDT Pulse 72 06/06/2024 1:21 PM EDT Temperature 36.9 ??C (98.4 ??F) 11/03/2023 8:58 [...] Care Team (Late st Contact Info) Description 07/10/2024 2:00 PM EDT Office Visit [facility] [address] [place] [address] Simran Crooks [address] [place] [address] 07/25/2024 10:00 AM EDT Medication Management [facility] [address] [place] [address] Martina Wesley, PharmD [address] [place] [address] 11/07/2024 1:00 PM EDT Office Visit [facility] [address] [place] [address] Simran Crooks [address] [place] [phone] Health Maintenance Due Date Last Done Comments CT Colonography 1955 FIT DNA/Cologuard 1955 FIT 1955 FOBT 1955 Sigmoidoscopy 1955 Alcohol/Substance Use Screening 1967 Hepatitis C Screening 12/24/1973 COVID-19 Vaccine ( season) 2023 03/12/2022, 01/31/2021, 05/15/2020 DTaP/Tdap/Td Vaccines (2 - Td or Tdap) 01/05/2024 01/04/2014, 10/11/2006 Eye Exam 06/18/2024 06/18/2022 Diabetes: Hemoglobin A1C 07/23/2024 024, 11/03/2023, 06/09/2023, Additional history exists Lipid Panel 07/29/2024 07/30/2023, 04/0 08/2022, 02/18/2022, Additional history exists Depression Screening 11/02/2024 11/03/2023, 11/03/19 24 Diabetes: Foot Exam 11/02/2024 11/03/2023, 11/03/2023, 11/03/2023, Additional history exists SDOH Screening 11/02/2024 11/03/2023 Dental Oral Exam 11/03/2024 05/02/2024, 10/2023, 09/30/2018, Additional history exists Dental Prophylaxis 11/03/2024 05/02/2024, 0 10/26/2023, 03/09/2023 Dental X-Ray: Bitewings 05/03/2025 05/03/19 25, 03/09/2023, 09/30/2018, Additional history exists Tobacco Screening 06/06/2025 06/06/2024 Dental X-Ray: Full Mouth 03/10/2026 024, 09/30/2018, 05/17/2014 Mammogram 05/04/2026 05/04/2024, 04/02, 04/15/2023, Additional history exists Colonoscopy 09/03/2028 09/03/2018 Colorectal [...] Author Blood Pressure < 140/90 Blood Pressure 134/78(2024 1:21 PM EDT) No Martina Tiwari PharmD Hemoglobin A1c < 7 Result Component 6.8( 10:04 AM EST) No Martina Tiwari PharmD Procedures Procedure Name Priority Date/Time Associated Diagnosis Comments CASE PRESENTATION, DETAILED AND EXTENSIVE TREATMENT PLANNING Routine 06/06/2024 3:00 PM EDT 31 O RESIN-BASED COMPOSITE - 1 SURF, POSTERIOR Routine 06/06/2024 3:00 PM EDT 18 O RESIN-BASED COMPOSITE - 1 SURF, POSTERIOR Routine 06/06/2024 3:00 PM EDT PROTHROMBIN TIME WHOLE BLD POC Routine 06/05/2024 1:35 PM EDT ~PT, ~INR - ANTI COAG CLINIC Routine 06/05/2024 1:35 PM EDT PROTHROMBIN TIME WHOLE BLD POC Routine 05/19/2024 1:04 PM EDT ~PT, ~INR - ANTI COAG CLINIC Routine 05/19/2024 1:04 PM EDT HM MAMMOGRAPHY Routine 05/04/2024 11:40 AM EST PERIODIC ORAL EVALUATION - ESTABLISHED PATIENT Routine 05/02/2024 1:00 PM EST INTRAORAL - PERIAPICAL EACH ADDITIONAL RADIOGRAPHIC IMAGE Routine 05/02/2024 1:00 PM EST INTRAORAL - PERIAPICAL FIRST RADIOGRAPHIC IMAGE Routine 05/02/2024 1:00 PM EST BITEWINGS - 4 RADIOGRAPHIC IMAGES Routine 05/02/2024 1:00 PM EST PROPHYLAXIS - ADULT Routine 05/02/2024 1 :00 PM EST CASE PRESENTATION, DETAILED AND EXTENSIVE TREATMENT PLANNING Routine 05/02/2024 1:00 PM EST PROTHROMBIN TIME WHOLE BLD POC Routine 05/01/2024 [...] COAG CLINIC Routine 04/19/2024 10:51 AM EST POCT GLYCATED HEMOGLOBIN, TOTAL Routine 01/24/2024 10:04 AM EST Type 2 diabetes mellitus with chronic kidney disease, without long-term current use of insulin, unspecified CKD stage (CMS/HCC) LIPID PANEL, STANDARD Routine 07/30/2023 8:15 AM EDT INTRAORAL - COMPLETE SERIES OF RADIOGRAPHIC IMAGES Routine 03/09/2023 1:00 PM EST DIABETES EYE EXAM Routine 06/18/2022 COLONOSCOPY Routine 09/03/2018 12:11 PM EDT from Last 3 Months or Most Recently Relevant to Health Maintenance Results * (ABNORMAL) PROTHROMBIN TIME WHOLE BLD POC (06/05/2024 1:35 PM EDT) Only the most recent of4 resultswithin the time period is included. Protime 29.1(H) 11.1 - 13.5 sec [facility] 06/05/2024 1:35 PM EDT 06/05/2024 1:36 PM EDT Generic External Data Provider LAB BLOOD ORDERAB LES Final Result Performing Organization Address [facility] de Phone Number [facility] [address] [place] [phone] * (ABNORMAL) ~PT, ~INR - ANTI COAG CLINIC (06/05/2024 1:35 PM EDT) Only the most recent of4 resultswithin the time period is included. Pathologist [facility] Prothrombin Time INR 2.4(H) 0.9 - 1.1 [facility] Comment:METER #: [id number] TERNATIONAL NORMALIZED RATIO (INR) REFERENCE RANGES Reference RangeFor patients not on anticoagulant therapy: 0.9 - 1.1INR ranges for oral anticoagulanttherapy:For prevention and treatment of venous thrombosis and pulmonary embolism: 2.0 - 3.0For acute myocardial infarction with aspirin therapy: 2.0 - 3.0For acute myocardial infarction without aspirin therapy: 3.0 - 4.0For patients with mechanical prosthetic heart valves: 2.5 - 3.5 06/05/2024 1:35 PM EDT 06/05/2024 1:36 PM EDT us Generic External Data Provider LAB BLOOD ORDERAB LES Final Result Performing Organization Address [facility] Co de Phone Number [facility] [address] [place] [address] [phone] * Hm Mammography (05/04/2024 11:40 AM EST) HM Mammogram BIRADS 2 Normal, Abnormal, BIRADS 1 , BIRADS 2 Comment:follow up one year Anatomical Region Laterality Modality Other us Historical Provider HEALTH MAINTENANCE Final Result * BI Mammogram Screening Tomosynthesis Bilateral (04/20/2024 1:15 PM EST) Anatomical Region Laterality Modality Breast Bilateral Mammography 04/20/2024 1:15 PM EST Narrative 04/28/2024 3:03 PM EST ? [facility] ? [address] ?[place] [address] ? Mammography Report ? Signed ? Patient: Mart,Dyan L ?MR#: [id number] ?? [id number] ? : 1955 ?Acct:[id number] ? Age/Sex: 68 / F ?ADM Date: 04/20/24 ? Loc: HO.MAMMO ? Attending Dr: Dominique Alcaraz MD ? Ordering Physician: Dominique Alcaraz MD ?Results: 2B ?? enign Findings ? Date of Service: 04/20/24 ?Follow Up: 1 Year From Orig ?? inal Mammogram ? Procedure(s): MM tomosynthesis screening BI ?? Accession Number(s): [id number] ? cc: Dominique Alcaraz MD ? EXAMINATION: [...] ? Signed By: ?<Electronically signed by Khushbu Sanchez DO in OV> ? 04/28/24 1500 ? DD/ 1315 ? TD/TT: 04/20/24 1351 ? Justowriter Operator: ? Procedure Note Ivan, Image - 04/28/2024 [facility] [address] [place] [address] Dr. [place], [place] [id number] Mammography Report Signed Patient: Dyan Mart LMR#: [id number] : 6Acct:[id number] Age/Sex: 68 / FADM Date: 04/20/24 Loc: SARAH Attending Dr: Dominqiue Alcaraz MD Ordering Physician: Dominique Alcaraz MDResults: 2B enign Findings Date of Service: 04/20/24Follow Up: 1 Year From Orig ina Mammogram Procedure(s): MM tomosynthesis screening BI Accession Number(s): [id number] cc: Dominique Alcaraz MD EXAMINATION: MM SCREENING [...] Khushbu Sanchez DO 04/28/2024 03:00 PM EST Dictated By: Khushbu Sanchez DO Signed By: <Electronically signed by Khushbu Sanchez DO in OV> 04/28/24 1500 DD/ 1315 TD/TT: 04/20/24 1351 Justowriter Operator: Dominique Alcaraz MD IMG BI PROCEDURES Final Re sult * (ABNORMAL) POCT HGB A1C (01/24/2024 10:04 AM EST) Hemoglobin A1C 6.8(A) 4.0 - 6.0 % QC Media Lot # [id number] Lot# Expiration Date [id number] Blood 01/24/2024 10:0 4 AM EST Dominique Alcaraz MD POINT OF CARE TEST ENTER/E DIT ORDERABLES Final Result * (ABNORMAL) Lipid Panel, Standard (07/30/2023 8:15 AM EDT) Triglycerides 239(H) <150 mg/dL [facility] Comment:Desirable Triglyceri de: less than 150 mg/dLBorderline High Triglyceride 150-199 mg/dLHigh Triglyceride: 200-499 mg/dLVery High Triglyceride: greater than or equal to 5OO mg/dL Cholesterol 154 <200 mg/dL [facility] Comment:Desirable Cholestero l: less than 200 mg/dLBorderline High Cholesterol: 200-239 mg/dLHigh Cholesterol: greater than 239 mg/dL LDL Cholesterol Calculated 70 <100 mg/dL [facility] Comment:Desirable LDL: less than 100 mg/dLNear Optimal/Above Optimal LDL: 110- 129 mg/dLBorderline High LDL: 130-159 mg/dLHigh LDL: 160-189 mg/dLVery High LDL: greater than or equal to 190 mg/dL HDL Cholesterol 37(L) >40 mg/dL [facility] Comment:Desirable HDL: great er than 40 mg/dL Note: This HDL assay may give artificially low results in patients with liver disease. 07/30/2023 8:15 AM EDT 07/30/2023 11:12 AM EDT Dominique Alcaraz MD LAB BLOOD ORDERABLES Final Result [facility] [address] [place] [phone] * Diabetes Eye Exam (06/18/2022) Eye Exam Normal Normal Historical Provider HEALTH MAINTENANCE Final Result * Colonoscopy (09/03/2018 12:11 PM EDT) Historical Provider HEALTH MAINTENANCE Final Result from Last 3 Months or Most Recently Relevant to Health Maintenance Insurance [facility] RETIREMENT OPTIONS (HMO D-SNP) DENTAL [facility] Advance Directives Documents on File Type Date Recorded Patient Risk Adjustment Specialist Expl anation Advance Directives and Living Will 11/04/2023 11:37 AM Health Care Proxy Care Teams Laborer Tanbark Relationship Specialty Start Date End Date Dominique Alcaraz MD [address] [place] [address] PCP - General Family Medicine 12/20/12 Martina Wesley, Irma [address] [place] [address] Pharmacist Internal Medicine 03/12/22 Refugio Huston MD [address] [place] [phone] Nephrology 05/01/24 Chun Álvarez MD [address] [place] [address] Hematology and Oncology 05/01/24 Moses Dumont MD [address] [place] [address] Cardiology 05/01/24
--- OUTSIDE RECORDS SUMMARY | 2024-06-27 07:56 | XMS_ITS | Encounter Summary ---
Author Organization [facility] Address [address] [place] [address] Phone Care Team Providers Care Bilingual Customer Service Specialist Name Role Phone Unavailable Primary Care Provider Unavailabl e Encounter Details Date Type Department Care Team (Late st Contact Info) Description 03/12/2023 Documentation Only [facility] [address] [place] [address] Cesia Perry PA Social History [...] Visit [facility] [address] [place] [address] Refugio Huston MD [address] [place] [address] Dr[place] [address] documented as of this encounter Visit Diagnoses Not on filedocumented in this encounter
--- OUTSIDE RECORDS SUMMARY | 2024-06-27 07:56 | XMS_ITS | Encounter Summary ---
Author Organization [facility] Address [address] [place] [address] Phone Care Team Providers Care Supervisor Inspection Name Role Phone Unavailable Primary Care Provider Unavailabl e Encounter Details Date Type Department Care Team (Late st Contact Info) Description 11/04/2021 Documentation Only [facility] [address] [place] [address] Cesia Perry PA Social History [...] Visit [facility] [address] [place] [address] Refugio Huston MD [address] [place] [address] [place] [address] documented as of this encounter Visit Diagnoses Not on filedocumented in this encounter
--- OUTSIDE RECORDS SUMMARY | 2024-06-27 07:56 | XMS_ITS | Encounter Summary ---
Author Organization [facility] Address [address] [facility] [address] [facility] [address] 7t [place] [address] Care Team Providers Care Inbound Call Center Representative Name Role Phone Dominique Alcaraz MD Primary Care Provider + [phone] Martina Wesley PharmD Unavailable Refugio Huston MD Unavailable [phone] Chun Álvarez MD Unavailable [phone] Moses Dumont MD Unavailable [phone] Encounter Details Date Type Department Care Team (Late st Contact Info) Description 05/04/2024 Abstract [facility] MEDICINE [address] [place] [address] Sunitha Singleton MA Social History Tobacco Use Types Packs/Day Years [...] Description 07/10/2024 2:00 PM EDT Office Visit [facility] [address] [place] [address] Simran Crooks [address] [place] [address] 07/25/2024 10:00 AM EDT Medication Management [facility] MEDICINE [address] [place] [address] Martina Wesley PharmD [address] [place] [address] 11/07/2024 1:00 PM EDT Office Visit [facility] [address] [place] [address] Simran Crokos [address] [place] [address] documented as of this encounter Goals Goal Patient Goal Type Associated Problems Recent Progress Patient-Stated? Author Blood Pressure < 140/90 Blood Pressure 134/78(2024 1:21 PM EDT) No Jamaris-Maria Isabel Jaffesa, PharmD Hemoglobin A1c < 7 Result Component 6.8( 10:04 AM EST) No Jamaris-Martina Jaffe, PharmD documented as of this encounter Procedures Procedure Name Priority Date/Time Associated Diagnosis Comments MAMMOGRAPHY Routine 05/04/2024 11:40 AM EST documented in this encounter Results * Mammography (05/04/2024 11:40 AM EST) Mammogram BIRADS 2 Normal, Abnormal, BIRADS 1 , BIRADS 2 Comment:follow up one year Anatomical Region Laterality Modality Other Historical Provider HEALTH MAINTENANCE Final Result documented in this encounter Visit Diagnoses Not on filedocumented in this encounter Additional Health Concerns Assessment Noted Time PHQ-9 Depression Total Score: 8 11/03/19 24 9:00 AM EDT documented as of this encounter Care Teams Inbound Call Center Representative Relationship Specialty Start Date End Date Dominique Alcaraz MD [address] [place] [address] PCP - General Family Medicine 12/20/12 Martina Wesley, PharmD [address] [place] [address] Pharmacist Internal Medicine 03/12/22 Refugio Huston MD [address] [place] [address] Nephrology 05/01/24 Chun Álvarez MD [address] [place] [address] Hematology and Oncology 05/01/24 Moses Dumont MD 5[address] [place] [address] Cardiology 05/01/24 documented as of this encounter
--- OUTSIDE RECORDS SUMMARY | 2024-06-27 07:56 | XMS_ITS | Encounter Summary ---
Author Organization [employer] [facility] [employer] [facility] Address [address] [facility] 7t [place] [address] Care Team Providers Care Adult Literacy Instructor Name Role Phone Dominique Alcaraz MD Primary Care Provider [phone] Martina Wesley PharmD Unavailable Refugio Huston MD Unavailable Chun Álvarez MD Unavailable [phone] Moses Dumont MD Unavailable [phone] Encounter Details Date Type Department Care Team (Late Contact Info) Description 10/30/2022 Abstract [facility] MEDICINE 230 [place], [place] [phone] Dominique Alcaraz MD [address] [place] [address] Social History Tobacco Use Types Packs/Day Years [...] Department Care Team (Late Contact Info) Description 07/10/2024 2:00 PM EDT Office Visit [facility] [address] [place] [address] Daksha, Simran [address] [place] [address] 07/25/2024 10:00 AM EDT Medication Management [facility] MEDICINE [address] [place] [address] Martina Wesley, PharmD [address] [place] [address] 11/07/2024 1:00 PM EDT Office Visit [facility] [address] [place] [address] DakshaSimran zafar [address] [place] [address] documented as of this encounter Goals Goal Patient Goal Type Associated Problems Recent Progress Patient-Stated? Author Blood Pressure < 140/90 Blood Pressure 134/78(2024 1:21 PM EDT) No Martina Tiwari, PharmD Hemoglobin A1c < 7 Result Component 6.8( 10:04 AM EST) No Jamaris-Martina Jaffe, PharmD documented as of this encounter Visit Diagnoses Not on filedocumented in this encounter Additional Health Concerns Assessment Noted Time PHQ-9 Depression Total Score: 0 07/09/19 23 3:56 PM EDT documented as of this encounter Care Teams Adult Literacy Instructor Relationship Specialty Start Date End Date Dominique Alcaraz MD [address] [place] [address] PCP - General Family Medicine 12/20/12 JamarisMartina Larsen, PharmD [address] [place] [address] Pharmacist Internal Medicine 03/12/22 Refugio Huston MD [address] [place] [phone] Nephrology 05/01/24 Chun Álvarez MD 575 [place] [address] Hematology and Oncology 05/01/24 Moses Dumont MD [address] [place] [address] Cardiology 05/01/24 documented as of this encounter
--- OUTSIDE RECORDS SUMMARY | 2024-06-27 07:56 | XMS_ITS | Encounter Summary ---
Author Organization [facility] Address [address] [place] [address] Phone Care Team Providers Care Principal Process Engineer Name Role Phone Unavailable Primary Care Provider Unavailabl e Reason for Visit * Reason Comments Med Refill Encounter Details Date Type Department Care Team (Late Contact Info) Description 02/18/2021 Refill [facility] [address] [place] [address] Lyle Blancas MD [address] [facility] [place] [address] Social History Tobacco Use Types [...] Visit [facility] [place], [address] [facility] [place] [address] Refugio Huston MD [address] [facility] [place] [address] documented as of this encounter Visit Diagnoses Not on filedocumented in this encounter
--- OUTSIDE RECORDS SUMMARY | 2024-06-27 07:56 | XMS_ITS | Clinical Summary ---
Author Organization [facility] [place], Address [address] [place] [address] [place] [address] Phone Care Team Providers Care Tv Production Assistant Name Role Phone Unavailable Primary Care Provider Unavailabl e Allergies Active Allergy Reactions Criticality Noted Date [...] 1 (one) time each day 3 Active Empagliflozin (Jardiance) 10 MG tablet Take 25 mg by mouth 1 (one) time each day 30 tablet 11 4 10/27/19 25 Active Ferrous Sulfate (Iron) 325 (65 Fe) MG tablet Take 1 tablet by mouth 1 (one) time each day with breakfast 30 tablet 11 5 Active Ferrous Sulfate (Iron) 325 (65 Fe) MG tablet Take 1 tablet by mouth 1 (one) time each day with breakfast 30 tablet 11 4 06/22/19 25 Discontinu ed(Reorder (does not appear on AVS)) Active Problems Problem Noted Date Diagnosed Date [...] 07/30/2019 10/12/2020 Multiple renal cysts 07/30/2019 021 Encounters Date Type Department Care Team Description 06/21/2024 Refill [facility] [address] [place] [address] Priscilla Buitrago MA from Last 3 Months Immunizations Immunization Administration Dates Next Due H1N1 Inj 11/19/2015 Hepatitis B 02/04/2022 Influenza Split 11/17/2011 Influenza, MDCK, PF, Quadrivalent 01/11/2021,11/2019 Influenza, Quadrivalent, Preservative Free 12/08,02/06/2019 Influenza, Quadrivalent, With Preservative 01/27,03/19/2015 Influenza, Unspecified 12/04/2021,01/04/2014,07/2010 [facility] SARS-COV-2 05/15/2020 Pfizer SARS-COV-2 01/31/2021 Pneumococcal Conjugate [...] Visit [facility] [address] [place] [place] [phone] Refugio Huston MD [address] [place] [address] [place] [phone] Health Maintenance Due Date Last Done Comments Breast Cancer Screening 1955 Colorectal Cancer Screening: Annual FOBT 12/24/2004 Colorectal Cancer Screening: Colonoscopy 12/24/2004 Colorectal Cancer Screening: Sigmoidoscopy 12/24/2004 Diabetes: Ophthalmology Exam 05/22/2019 Diabetes: Pedal Pulse Checked 05/22/2019 Diabetes: Sensory Foot Exam 05/22/2019 Diabetes: Visual Foot Exam 05/22/2019 Diabetes: Hemoglobin A1C 04/25/2024 024, 06/09/2023, 06/05/2022 Pneumococcal Vaccine: 50+ Years Completed 11/04/2022, 01/04/2014, 10/11/2006 Pneumococcal Vaccine: Peds (0 to 5 Years) and At-Risk Patients (6 to 49 Years) Discontinued 11/04/2022, 01/04/2014, 10/11/2006 Hepatitis B Vaccine Aged Out 05/05/2023, 11/04/2022, 02/04/2022 No longer eligible based on patient's age to complete this topic Influenza Vaccine Completed 11/23/2023, , 01/11/2021, Additional history exists Insurance Medicaid [place] [facility] Care Dual SNP ([id number])
--- OUTSIDE RECORDS SUMMARY | 2024-06-27 07:56 | XMS_ITS | Encounter Summary ---
Author Organization [employer] [facility] Address [address] [facility] 7t [place] [address] Care Team Providers Care Penology Professor Name Role Phone Dominique Alcaraz MD Primary Care Provider + [phone] Martina Wesley PharmD Unavailable Refugio Huston MD Unavailable [phone] Chun Álvarez MD Unavailable [phone] Moses Dumont MD Unavailable [phone] Encounter Details Date Type Department Care Team (Late st Contact Info) Description 12/08/2023 Orders Only [facility] [address] [place] [address] Provider, MD Christiano Social History Tobacco Use [...] Description 07/10/2024 2:00 PM EDT Office Visit [facility] [address] [place] [address] Simran Crooks [address] [place] [address] 07/25/2024 10:00 AM EDT Medication Management [facility] 230 [place] [address] Martina Wesley PharmD 230 [place] [address] 11/07/2024 1:00 PM EDT Office Visit [facility] [address] [place] [address] Simran Crooks [address] [place] [address] documented as of this encounter Goals Goal Patient Goal Type Associated Problems Recent Progress Patient-Stated? Author Blood Pressure < 140/90 Blood Pressure 134/78(2024 1:21 PM EDT) No Jamaris-Gambl e, Martina, PharmD Hemoglobin A1c < 7 [...] documented as of this encounter Care Teams Penology Professor Relationship Specialty Start Date End Date Dominique Alcaraz MD 230 [place] [address] PCP - General Family Medicine 12/20/12 Martina Wesley, PharmD 230 [place] [address] Pharmacist Internal Medicine 03/12/22 Refugio Huston MD [address] [place] [address] Nephrology 05/01/24 Chun Álvarez MD 575 [place] [address] Hematology and Oncology 05/01/24 Moses Dumont MD 596 [place] [address] Cardiology 05/01/24 documented as of this encounter
--- OUTSIDE RECORDS SUMMARY | 2024-06-27 07:56 | XMS_ITS | Encounter Summary ---
Author Organization [facility] Address [address] [place] [address] Phone Care Team Providers Care Mechanical Design Engineer Name Role Phone Unavailable Primary Care Provider Unavailabl e Encounter Details Date Type Department Care Team (Late Contact Info) Description 10/27/2023 Documentation Only [facility] [address] [place] [address] Michelle Linares [address] [place] [address] Social History Tobacco Use Types [...] [facility] [address] [place] [address] Refugio Huston MD [address] [facility] [place] [address] documented as of this encounter Visit Diagnoses Not on filedocumented in this encounter
--- OUTSIDE RECORDS SUMMARY | 2024-06-27 07:56 | XMS_ITS | Encounter Summary ---
Author Organization [facility] Address [address] [place] [address] Phone Care Team Providers Care Generator Technician Name Role Phone Unavailable Primary Care Provider Unavailabl e Encounter Details Date Type Department Care Team (Late st Contact Info) Description 10/17/2021 Orders Only [facility] [address] [place] [address] Lyle Blancas MD [address] [place] [address] [place] [address] Stage 3a chronic kidney disease [...] Visit [facility] [address] [place] [address] Refugio Huston MD [address] [place] [address] [place] [address] Scheduled Orders Name Type Priority [...]
--- OUTSIDE RECORDS SUMMARY | 2024-06-27 07:56 | XMS_ITS | Encounter Summary ---
Author Organization [facility] Address [address] [facility] 7t [place] [address] Care Team Providers Care Religious Assistant Name Role Phone Dominique Alcaraz MD Primary Care Provider Martina Wesley PharmD Unavailable Refugio Huston MD Unavailable [phone] Chun Álvarez MD Unavailable [phone] Moses Dumont MD Unavailable [phone] Reason for Visit * Reason Comments Med Refill Encounter Details Date Type Department Care Team (Late st Contact Info) Description 05/07/2023 Refill [facility] MEDICINE [address] [place], [place] [phone] Dominique Alcaraz MD [address] [place], [place] [phone] Type 2 diabetes mellitus without complication, 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 local company intermodal 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 insulin use ([facility]) Social History Tobacco Use Types Packs/Day [...] Description 07/10/2024 2:00 PM EDT Office Visit [facility] [address] [place] [address] Simran Crooks [address] [place] [address] 07/25/2024 10:00 AM EDT Medication Management [facility] MEDICINE [address] [place] [address] Martina Wesley PharmD [address] [place] [address] 11/07/2024 1:00 PM EDT Office Visit [facility] [address] [place] [address] Simran Crooks [address] [place] [address] documented as of this encounter Goals Goal Patient Goal Type Associated Problems Recent Progress Patient-Stated? 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 insulin use ([facility]) documented in this encounter Additional Health Concerns Assessment Noted Time PHQ-9 Depression Total Score: 0 07/09/19 23 3:56 PM EDT documented as of this encounter Care Teams Religious Assistant Relationship Specialty Start Date End Date Dominique Alcaraz MD 230 [place] [address] PCP - General Family Medicine 12/20/12 Martina Wesley, PharmD 230 [place] [address] Pharmacist Internal Medicine 03/12/22 Refugio Huston MD [address] [place] [address] Nephrology 05/01/24 Chun Álvarez MD 575 [place] [address] Hematology and Oncology 05/01/24 Moses Dumont MD 5[address] [place] [address] Cardiology 05/01/24 documented as of this encounter
--- OUTSIDE RECORDS SUMMARY | 2024-06-27 07:56 | XMS_ITS | Encounter Summary ---
Author Organization [employer] Address [address] [facility] [address] 7t [place] [address] Care Team Providers Care Video Network Engineer Name Role Phone Dominique Alcaraz MD Primary Care Provider [phone] Martina Wesley PharmD Unavailable Refugio Huston MD Unavailable [phone] Chun Álvarez MD Unavailable [phone] Moses Dumont MD Unavailable [phone] Encounter Details Date Type Department Care Team (Late st Contact Info) Description 05/01/2024 Orders Only [facility] MEDICINE 230 [place], [place] [phone] Dominique Alcaraz MD [address] [place], [place] [phone] Type 2 diabetes mellitus with chronic kidney [...] Description 07/10/2024 2:00 PM EDT Office Visit [facility] [address] [place] [address] Simran Crooks [address] [place] [address] 07/25/2024 10:00 AM EDT Medication Management [facility] [address] [place] [address] Martina Wesley, PharmD 230 [place], [place] [phone] 11/07/2024 1:00 PM EDT Office Visit [facility] [address] [place], [place] [phone] Simran Crooks [address] [place], [place] [phone] documented as of this encounter Goals Goal [...] current use of insulin, unspecified CKD stage ([facility]) ~PT, ~INR - ANTI COAG CLINIC Routine 05/01/2024 1:32 PM EST Type 2 diabetes mellitus with chronic kidney disease, without long-term current use of insulin, unspecified CKD stage ([facility]/HCC) documented in this encounter Results * (ABNORMAL) PROTHROMBIN TIME WHOLE BLD POC (05/01/2024 1:32 PM EST) Protime 27.7(H) 11.1 - 13.5 sec [facility] 05/01/2024 1:32 PM EST 05/01/2024 1:34 PM EST us Generic External Data Provider LAB BLOOD ORDERAB LES Final Result [facility] [address] [place] [address] [phone] * (ABNORMAL) ~PT, ~INR - ANTI COAG CLINIC (05/01/2024 1:32 PM EST) Prothrombin Time INR 2.3(H) 0.9 - 1.1 [facility] Comment:METER #: [id number] TERNATIONAL NORMALIZED RATIO (INR) REFERENCE RANGES Reference [...] LAB BLOOD ORDERAB LES Final Result [facility] [address] [place] [phone] [phone] documented in this encounter Visit Diagnoses [...] documented as of this encounter Care Teams Video Network Engineer Relationship Specialty Start Date End Date Dominique Alcaraz MD [address] [place] [address] PCP - General Family Medicine 12/20/12 Martina Wesley, BetsyD 230 [place] [address] Pharmacist Internal Medicine 03/12/22 Refugio Huston MD [address] [place] [address] Nephrology 05/01/24 Chun Álvarez MD [address] [place] [address] Hematology and Oncology 05/01/24 Moses Dumont MD [address] [place] [address] Cardiology 05/01/24 documented as of this encounter
--- OUTSIDE RECORDS SUMMARY | 2024-06-27 07:56 | XMS_ITS | Encounter Summary ---
Author Organization [facility] Address [address] [facility] 7t [place] [address] Care Team Providers Care Shipping And Receiving Specialist Name Role Phone Dominique Alcaraz MD Primary Care Provider + [phone] Martina Wesley PharmD Unavailable Refugio Huston MD Unavailable [phone] Chun Álvarez MD Unavailable [phone] Moses Dumont MD Unavailable [phone] Reason for Visit * Reason Comments Med Refill Encounter Details Date Type Department Care Team (Late st Contact Info) Description 03/17/2023 Refill [facility] MEDICINE [address] [place], [place] [phone] Dominique Alcaraz MD [address] [place], [place] [phone] Vitamin D deficiency; Stage 2 chronic kidney [...] Description 07/10/2024 2:00 PM EDT Office Visit [facility] [address] [place] [address] Simran Crooks [address] [place] [address] 07/25/2024 10:00 AM EDT Medication Management [facility] MED[facility]INE [address] [place] [address] Martina Wesley PharmD [address] [place] [address] 11/07/2024 1:00 PM EDT Office Visit [facility] [address] [place] [address] Simran Crooks [address] [place] [address] documented as of this encounter Goals Goal [...] documented as of this encounter Care Teams Shipping And Receiving Specialist Relationship Specialty Start Date End Date Dominique Alcaraz MD [address] [place] [address] PCP - General Family Medicine 12/20/12 Martina Wesley, BetsyD [address] [place] [address] Pharmacist Internal Medicine 03/12/22 Refugio Huston MD [address] [place] [address] Nephrology 05/01/24 Chun Álvarez MD [address] [place] [address] Hematology and Oncology 05/01/24 Moses Dumont MD 5[address] [place] [address] Cardiology 05/01/24 documented as of this encounter
--- OUTSIDE RECORDS SUMMARY | 2024-06-27 07:56 | XMS_ITS | Encounter Summary ---
Author Organization [facility] Address [address] [place] [address] Phone Care Team Providers Care Nutrition Partner Name Role Phone Unavailable Primary Care Provider Unavailabl e Encounter Details Date Type Department Care Team (Late st Contact Info) Description 06/08/2022 Documentation Only [facility] [address] [place] [address] Cesia Perry PA Social History [...] [facility] [address] [place] [address] Refugio Huston MD [address] [place] [address] [place] [address] documented as of this encounter Visit Diagnoses Not on filedocumented in this encounter
--- OUTSIDE RECORDS SUMMARY | 2024-06-27 07:56 | XMS_ITS | Encounter Summary ---
Author Organization [employer] [facility] Address [address] [facility] 7t [place] [address] Care Team Providers Care Adjudication Specialist Name Role Phone Dominique Alcaraz MD Primary Care Provider + [phone] Martina Wesley PharmD Unavailable [phone] Refugio Huston MD Unavailable [phone] Chun Álvarez MD Unavailable [phone] Moses Dumont MD Unavailable [phone] Reason for Visit * Reason Onset Date Comments Pre op 09/23/2023 Encounter Details Date Type Department Care Team (Late st Contact Info) Description 09/23/2023 Telephone [facility] MED[facility]INE 230 [place], [place] [phone] Dominique Alcaraz MD 230 [place], [place] [phone] Pre op Social History Tobacco Use Types Packs/Day Years Used Date Smoking Tobacco: Never Smokeless Tobacco: Never Depression Answer Date Recorded Patient Health Questionnaire-9 Score 0 07/08/2022 Housing Stability Answer Date Recorded What is your housing situation today? I have jaes guillermo 12/17/[address] you [...] No Surgeon's name: mercedes mohan Facility name: [address] [address] Surgeon's office number: [phone] Surgeon's office fax number: [phone] Contact name (person you spoke with): [place] Last office note from surgeon requested: No * Telephone Encounter - Bharti Fregoso - 09/23/2023 12:23 PM EDT Date of Surgery: right eye 11/15/23 and left eye 11/28 Surgical procedure being done: cataract surgery both eyes Type of anesthesia: local anesthesia Lab needed: No EKG: No Surgeon's name: mercedes mohan Facility name: [address], [place] [address] Surgeon's office number: [phone] Surgeon's office fax number: [phone] Contact name (person you spoke with): [place] Last office note from surgeon requested: No documented in this encounter Plan of Treatment Upcoming Encounters Date Type Department Care Team (Late st Contact Info) Description 07/10/2024 2:00 PM EDT Office Visit [facility] [address] [place] [address] Simran Crooks [address] [place] [address] 07/25/2024 10:00 AM EDT Medication Management [facility] MED[facility]INE [address] [place] [address] JamarisMartina Larsen, PharmD [address] [place] [address] 11/07/2024 1:00 PM EDT Office Visit [facility] [address] [place] [address] [address] [address] documented as of this encounter Goals Goal Patient Goal Type Associated Problems Recent Progress Patient-Stated? Author Blood Pressure < 140/90 Blood Pressure 134/78(2024 1:21 PM EDT) No Piers-Gambl e, Martina, PharmD Hemoglobin A1c < 7 Result Component 6.8( 10:04 AM EST) No Piers-Gambl e, Martina, PharmD documented as of this encounter Visit Diagnoses Not on filedocumented in this encounter Additional Health Concerns Assessment Noted Time PHQ-9 Depression Total Score: 0 07/09/19 3:56 PM EDT documented as of this encounter Care Teams Adjudication Specialist Relationship Specialty Start Date End Date Dominique Alcaraz MD [address] [place] [address] PCP - General Family Medicine 12/20/12 JamariMartina Jane, PharmD 230 [place] [address] Pharmacist Internal Medicine 03/12/22 Refugio Huston MD 2[address] [place] [address] Nephrology 05/01/24 Chun Álvarez MD [address] [place] [address] Hematology and Oncology 05/01/24 Moses Dumont MD 596 [place] [address] Cardiology 05/01/24 documented as of this encounter
[2024-06-27 08:08] LABS: MANUAL DIFF FLAG NO
[2024-06-27 08:26] LABS: Basophils Absolute Auto 0.1 X10*3/uL (0.0-0.2); Basophils Percent Auto 0.5 % (0-2); Eosinophils Absolute Auto 0.1 X10*3/uL (0.0-0.4); Eosinophils Percent Auto 0.6 % (0-4); Hematocrit 48.6 % (37.0-47.0); Hemoglobin 15.3 g/dl (12.0-16.0); Imm Gran Abs Auto 0.05 X10*3/uL (0.00-0.03); Imm Gran Pct Auto 0.5 % (0.0-0.4); Lymphocytes Absolute Auto 2.8 X10*3/uL (1.2-4.9); Lymphocytes Percent Auto 26.2 % (20-40); Mean Corpuscular HGB Conc 31.5 g/dl (31.0-35.0); Mean Corpuscular Hemoglobin 27.9 pg (27.0-33.0); Mean Corpuscular Volume 88.7 fL (80.0-98.0); Monocytes Absolute Auto 0.8 X10*3/uL (0.1-1.2); Monocytes Percent Auto 7.7 % (2-11); Neutrophils Absolute Auto 6.8 x10*3/uL (2.0-8.3); Neutrophils Percent Auto 64.5 % (45-73); Platelet Count 212 X10*3/uL (160-400); Red Blood Count 5.48 X10*6/uL (4.20-5.50); Red Cell Distribution Width 14.9 % (11.0-16.0); White Blood Count 10.6 X10*3/uL (4.8-10.8)
[2024-06-27 08:31] LABS: Estimated Average Glucose 151 mg/dL; Hemoglobin A1C 199.0537 umol/L; Hemoglobin A1c % 6.9 % (<6.0); Total Hemoglobin (HGBA1C) 3867.3146 umol/L
[2024-06-27 09:28] LABS: Anion Gap 15 (12-20); Blood Urea Nitrogen 19 mg/dL (9-16); Carbon Dioxide 21 mmol/L (22-29); Chloride 110 mmol/L (96-108); Estimated Glomerular Filt Rate 46; Potassium 4.8 mmol/L (3.3-5.1); Sodium 141 mmol/L (135-145); Uric Acid 7.3 mg/dL (2.4-5.7); Vitamin D 25-OH Total 42.3 ng/mL (>30)
[2024-06-27 09:41] LABS: Appearance Urine Clear; Color Urine Yellow; Glucose Urine UA >=1000 mg/dL (Negative); Leukocyte Esterase Urine Trace (Negative); Nitrite Urine Negative (Negative); PH 5.5 (5.0-9.0); UMIC TRIGGER UA YES; Urine Blood Negative (Negative); Urine Ketones Negative (Negative); Urine Protein 30 (1+) mg/dL (Neg-Trace)
[2024-06-27 09:45] LABS: Bacteria Urine None Seen (None Seen); RBC Urine 0-2 /HPF (0-2); WBC Urine 0-5 /HPF (0-5)
[2024-06-27 10:08] LABS: Creatinine Urine 100.04 mg/dL; Total Protein Urine Random 30 mg/dL (<12)
== END 2024-06-27 07:52 | disposition home or self-care (01) ==
LOC: HO.LAB 07:51
PROVIDERS: PCP Family Medicine; Visit Provider Physician Assistant
DX: E11.22 Type 2 diabetes mellitus with diabetic chronic kidney disease (principal); N18.31 Chronic kidney disease, stage 3a; E55.9 Vitamin D deficiency, unspecified
CPT/HCPCS: 36415; 80051; 81001; 82306; 82310; 82565; 82570; 83036; 84156; 84520; 84550; 85025

== ENCOUNTER 2024-06-30 12:57 | Outpatient (AMB) | payer OTHER, SELFPAY ==
--- OUTSIDE RECORDS SUMMARY | 2024-06-30 13:18 | XMS_ITS | Encounter Summary ---
Author Organization [employer] Address [address] [facility] [address] 7t [place] [address] Care Team Providers Care Farm Crew Leader Name Role Phone Dominique Alcaraz MD Primary Care Provider Martina Wesley PharmD Unavailable Refugio Huston MD Unavailable Chun Álvarez MD Unavailable [phone] Moses Dumont MD Unavailable [phone] Encounter Details Date Type Department Care Team (Late st Contact Info) Description 05/01/2024 Orders Only [facility] 230 [place], [place] [phone] Dominique Alcaraz MD 230 [place], [place] [phone] Type 2 diabetes mellitus with chronic kidney [...] Description 07/10/2024 2:00 PM EDT Office Visit [facility] 91 [place] [address] Simran Crooks 91 [place] [address] 07/25/2024 10:00 AM EDT Medication Management [facility] 230 [place] [address] Martina Wesley, PharmD 230 [place], [place] [phone] 11/07/2024 1:00 PM EDT Office Visit [facility] [address] [place], [place] [phone] Simran Crooks 91 [place], [place] [phone] documented as of this encounter Goals Goal [...] current use of insulin, unspecified CKD stage ([facility]) ~PT, ~INR - ANTI [facility]AG [facility]INIC Routine 05/01/2024 1:32 PM EST Type 2 diabetes mellitus with chronic kidney disease, without long-term current use of insulin, unspecified CKD stage ([facility]) documented in this encounter Results * (ABNORMAL) PROTHROMBIN TIME WHOLE BLD POC (05/01/2024 1:32 PM EST) Protime 27.7(H) 11.1 - 13.5 sec [facility] 05/01/2024 1:32 PM EST 05/01/2024 1:34 PM EST us Generic External Data Provider LAB BLOOD ORDERAB LES Final Result [facility] [address] [place] [address] [phone] * (ABNORMAL) ~PT, ~INR - ANTI COAG CLINIC (05/01/2024 1:32 PM EST) Prothrombin Time INR 2.3(H) 0.9 - 1.1 [facility] Comment:METER #: [id number] TERNATIONAL NORMALIZED RATIO (INR) REFERENCE RANGES Reference [...] Provider LAB BLOOD ORDERAB LES Final Result [facility] [address] [place] [address] [phone] documented in this encounter Visit Diagnoses [...] documented as of this encounter Care Teams Farm Crew Leader Relationship Specialty Start Date End Date Dominique Alcaraz MD 230 [place] [address] PCP - General Family Medicine 12/20/12 Martina Wesley, BetsyD 230 [place] [address] Pharmacist Internal Medicine 03/12/22 Refugio Huston MD 2150 [place] [address] Nephrology 05/01/24 Chun Álvarez MD 575 [place] [address] Hematology and Oncology 05/01/24 Moses Dumont MD 596 [place] [address] Cardiology 05/01/24 documented as of this encounter
--- OUTSIDE RECORDS SUMMARY | 2024-06-30 13:18 | XMS_ITS | Encounter Summary ---
Author Organization [facility] Address [address] [place] [address] Phone Care Team Providers Care Rat Culturist Name Role Phone Unavailable Primary Care Provider Unavailabl e Encounter Details Date Type Department Care Team (Late Contact Info) Description 06/30/2024 Documentation Only [facility] [address] [place] [address] Priscilla Buitrago [place] [address] [place] [address] Social History Tobacco Use Types [...] Team (Late st Contact Info) Description 07/05/2024 1:40 PM EDT Office Visit [facility] [address] [place] [address] Refugio Huston MD [address] [facility] [place] [address] documented as of this encounter Visit Diagnoses Not on filedocumented in this encounter
--- OUTSIDE RECORDS SUMMARY | 2024-06-30 13:18 | XMS_ITS | Encounter Summary ---
Author Organization [employer] [facility] Address [address] [facility] 7t [place] [address] Care Team Providers Care Jigsawyer Name Role Phone Dominique Alcaraz MD Primary Care Provider + [phone] Martina Wesley PharmD Unavailable [phone] Refugio Huston MD Unavailable [phone] Chun Álvarez MD Unavailable [phone] Moses Dumont MD Unavailable [phone] Reason for Visit * Reason Comments Med Refill Encounter Details Date Type Department Care Team (Late st Contact Info) Description 06/27/2024 Refill [facility]INE 230 [place], [place] [phone] Dominique Alcaraz MD 230 [place], [place] [phone] Social History Tobacco Use Types Packs/Day Years [...] Description 07/10/2024 2:00 PM EDT Office Visit [facility] [address] [place] [address] Simran Crooks [address] [place] [address] 07/25/2024 10:00 AM EDT Medication Management [facility] 230 [place] [address] Martina Wesley, PharmD 230 [place] [address] 11/07/2024 1:00 PM EDT Office Visit [facility] [address] [place] [address] [phone] Simran Crooks 91 [place] [address] documented as of this encounter Goals Goal Patient Goal Type Associated Problems Recent Progress Patient-Stated? Author Blood Pressure < 140/90 Blood Pressure 134/78(2024 1:21 PM EDT) No Martina Tiwari PharmD Hemoglobin A1c < 7 Result Component 6.8( 4 10:04 AM EST) No Martina Tiwari PharmD documented as of this encounter Visit Diagnoses Not on filedocumented in this encounter Additional Health Concerns Assessment Noted Time PHQ-9 Depression Total Score: 8 11/03/19 24 9:00 AM EDT documented as of this encounter Care Teams Jigsawyer Relationship Specialty Start Date End Date Dominique Alcaraz MD 230 [place] [address] PCP - General Family Medicine 12/20/12 Martina Wesley PharmD 230 [place] [address] Pharmacist Internal Medicine 03/12/22 Refugio Huston MD 2150 [place] [address] Nephrology 05/01/24 Chun Álvarez MD 575 [place] [address] Hematology and Oncology 05/01/24 Moses Dumont MD 596 [place] [address] Cardiology 05/01/24 documented as of this encounter
--- OUTSIDE RECORDS SUMMARY | 2024-06-30 13:18 | XMS_ITS | Encounter Summary ---
Author Organization [facility] Address [address] [place] [address] Phone Care Team Providers Care Software Product Manager Name Role Phone Unavailable Primary Care Provider Unavailabl e Reason for Visit * Reason Comments Med Refill Encounter Details Date Type Department Care Team (Late Contact Info) Description 02/18/2021 Refill [facility] [address] [place] [address] Lyle Blancas MD [address] [facility] [place] [address] Social History Tobacco Use Types [...] Care Team (Late Contact Info) Description 07/05/2024 1:40 PM EDT Office Visit [facility] [place], [address] [facility] [place] [address] Refugio Huston MD [address] [facility] [place] [address] documented as of this encounter Visit Diagnoses Not on filedocumented in this encounter
--- OUTSIDE RECORDS SUMMARY | 2024-06-30 13:18 | XMS_ITS | Clinical Summary ---
Author Organization [facility] [place] Address [address] [place] [address] [place] [address] Phone Care Team Providers Care Family Court Counsellor Name Role Phone Unavailable Primary Care Provider [...] time each day with breakfast 30 tablet 4 06/22/19 25 Discontinu ed(Reorder (does not [...] Encounters Date Type Department Care Team Description 06/30/2024 Documentation Only [facility] [address] [place] [address] Priscilla Buitrago [place] 06/21/2024 Refill [facility] [address] [place] [address] Priscilla Buitrago MA from Last 3 Months [...] Visit [facility] [address] [facility] [place] [address] Refugio Huston MD [address] [facility] [place] [phone] Health Maintenance Due Date Last Done Comments [...] 01/11/2021, Additional history exists Insurance Medicaid [place] [facility] Care Dual SNP ([id number])
--- OUTSIDE RECORDS SUMMARY | 2024-06-30 13:18 | XMS_ITS | Encounter Summary ---
Author Organization [facility] Address [address] [place] [address] Phone Care Team Providers Care Electric Arc Furnace Operator Name Role Phone Unavailable Primary Care Provider Unavailabl e Encounter Details Date Type Department Care Team (Late st Contact Info) Description 11/04/2021 Documentation Only [facility] [address] [place] [address] Cesia Perry PA Social History [...] Visit [facility] [address] [place] [address] Refugio Huston MD [address] [place] [address] [place] [address] documented as of this encounter Visit Diagnoses Not on filedocumented in this encounter
--- OUTSIDE RECORDS SUMMARY | 2024-06-30 13:18 | XMS_ITS | Encounter Summary ---
Author Organization [facility] Address [address] [place] [address] Phone Care Team Providers Care External Grinder Tender Name Role Phone Unavailable Primary Care Provider Unavailabl e Encounter Details Date Type Department Care Team (Late st Contact Info) Description 06/08/2022 Documentation Only [facility] [address] [place] [address] Cesia Perry PA Social History [...] Visit [facility] [address] [place] [address] Refugio Huston MD [address] [place] [address] [place] [address] documented as of this encounter Visit Diagnoses Not on filedocumented in this encounter
--- OUTSIDE RECORDS SUMMARY | 2024-06-30 13:18 | XMS_ITS | Encounter Summary ---
Author Organization [facility] Address [address] [place] [address] Phone Care Team Providers Care Beer Coil Cleaner Name Role Phone Unavailable Primary Care Provider Unavailabl e Encounter Details Date Type Department Care Team (Late st Contact Info) Description 03/12/2023 Documentation Only [facility] [address] [place] [address] Cesia Perry PA Social History [...] Visit [facility] [address] [place] [address] Refugio Huston MD [address] [place] [address] [place] [address] documented as of this encounter Visit Diagnoses Not on filedocumented in this encounter
--- OUTSIDE RECORDS SUMMARY | 2024-06-30 13:18 | XMS_ITS | Encounter Summary ---
Author Organization [facility] Address [address] [place] [address] Phone Care Team Providers Care Taxicab Coordinator Name Role Phone Unavailable Primary Care Provider Unavailabl e Encounter Details Date Type Department Care Team (Late Contact Info) Description 10/27/2023 Documentation Only [facility] [address] [place] [address] Michelle Linares [address] [place] [address] Social History Tobacco Use Types [...] Visit [facility] [address] [facility] [place] [address] Refugio Huston MD [address] [facility] [place] [address] documented as of this encounter Visit Diagnoses Not on filedocumented in this encounter
--- OUTSIDE RECORDS SUMMARY | 2024-06-30 13:18 | XMS_ITS | Encounter Summary ---
Author Organization [facility] Address [address] [place] [address] Phone Care Team Providers Care Manager Group Name Role Phone Unavailable Primary Care Provider Unavailabl e Encounter Details Date Type Department Care Team (Late st Contact Info) Description 10/17/2021 Orders Only [facility] [address] [place] [address] yLle Blancas MD [address] [place] [address] [place] [address] Stage 3a chronic kidney disease [...] [facility] [address] [place] [address] Refugio Huston MD [address] [place] [address] [place] [address] Scheduled Orders Name Type Priority [...]
--- OUTSIDE RECORDS SUMMARY | 2024-06-30 13:18 | XMS_ITS | Encounter Summary ---
Author Organization [employer] [facility] Address [address] [facility] 7t [place] [address] Care Team Providers Care Tester Food Products Name Role Phone Dominique Alcaraz MD Primary Care Provider [phone] Martina Wesley PharmD Unavailable Refugio Huston MD Unavailable [phone] Chun Álvarez MD Unavailable [phone] Moses Dumont MD Unavailable Encounter Details Date Type Department Care Team (Late Contact Info) Description 10/30/[address] [facility] 230 [place], [place] [phone] Dominique Alcaraz MD 230 [place] [address] Social History Tobacco Use Types Packs/Day Years [...] Description 07/10/2024 2:00 PM EDT Office Visit [facility] 91 [place] [address] Daksha, Simran 91 [place] [address] 07/25/2024 10:00 AM EDT Medication [address] [facility] 230 [place] [address] Martina Wesley, PharmD 230 [place] [address] 11/07/2024 1:00 PM EDT Office Visit [facility] 91 [place] [address] DakshaSimran zafar 91 [place] [address] documented as of this encounter Goals Goal [...] documented as of this encounter Care Teams Tester Food Products Relationship Specialty Start Date End Date Dominique Alcaraz MD [address] [place] [address] PCP - General Family Medicine 12/20/12 JamarisMartina Larsen, PharmD [address] [place] [address] Pharmacist Internal Medicine 03/12/22 Refugio Huston MD [address] [place] [phone] Nephrology 05/01/24 Chun Álvarez MD 575 [place] [address] Hematology and Oncology 05/01/24 Moses Dumont MD 5[address] [place] [address] Cardiology 05/01/24 documented as of this encounter
--- OUTSIDE RECORDS SUMMARY | 2024-06-30 13:18 | XMS_ITS | Encounter Summary ---
Author Organization [employer] [facility] Address [address] [facility] 7t [place] [address] Care Team Providers Care Clinical Laboratory Aides Teacher Name Role Phone Dominique Alcaraz MD Primary Care Provider + [phone] Martina Wesley PharmD Unavailable Refugio Huston MD Unavailable [phone] Chun Álvarez MD Unavailable [phone] Moses Dumont MD Unavailable [phone] Encounter Details Date Type Department Care Team (Late st Contact Info) Description 12/08/2023 Orders Only [facility] 230 [place] [address] Provider, MD Christiano Social History Tobacco Use Types Packs/Day Years Used Date Smoking Tobacco: Never Smokeless Tobacco: Never Depression Answer Date Recorded Patient Health Questionnaire-9 Score 8 11/03/2023 Patient Health Questionnaire-9 Score 8 11/03/2023 Last PHQ-9: Questionnaire Data Not on file 0 11/03/2023 Housing Stability Answer Date Recorded What is your housing situation today? I have jasektahe li 11/03/[address] you [...] Description 07/10/2024 2:00 PM EDT Office Visit [facility] [address] [place] [address] Simran Crooks [address] [place] [address] 07/25/2024 10:00 AM EDT Medication Management [facility] 230 [place] [address] Martina Wesley PharmD 230 [place] [address] 11/07/2024 1:00 PM EDT Office Visit [facility] [address] [place] [address] Simran Crooks [address] [place] [address] documented as of this encounter Goals Goal [...] as of this encounter Care Teams Clinical Laboratory Aides Teacher Relationship Specialty Start Date End Date Dominique Alcaraz MD 230 [place] [address] PCP - General Family Medicine 12/20/12 Martina Wesley, PharmD 230 [place] [address] Pharmacist Internal Medicine 03/12/22 Refugio Huston MD [address] [place] [address] Nephrology 05/01/24 Chun Álvarez MD 575 [place] [address] Hematology and Oncology 05/01/24 Moses Dumont MD 5[address] [place] [address] Cardiology 05/01/24 documented as of this encounter
--- OUTSIDE RECORDS SUMMARY | 2024-06-30 13:18 | XMS_ITS | Encounter Summary ---
Author Organization [employer] [facility] Address [address] [facility] 7t [place] [address] Care Team Providers Care Cloth Dyer Name Role Phone Dominique Alcaraz MD Primary Care Provider + [phone] Martina Wesley PharmD Unavailable Refugio Huston MD Unavailable [phone] Chun Álvarez MD Unavailable [phone] Moses Dumont MD Unavailable [phone] Reason for Visit * Reason Comments Med Refill Encounter Details Date Type Department Care Team (Late st Contact Info) Description 03/17/2023 Refill [facility] 230 [place], [place] [phone] Dominique Alcaraz MD 230 [place], [place] [phone] Vitamin D deficiency; Stage 2 chronic kidney [...] Description 07/10/2024 2:00 PM EDT Office Visit [facility] [address] [place] [address] Simran Crooks [address] [place] [address] 07/25/2024 10:00 AM EDT Medication Management [facility] 230 [place] [address] Martina Wesley PharmD 230 [place] [address] 11/07/2024 1:00 PM EDT Office Visit [facility] [address] [place] [address] Simran Crooks [address] [place] [address] documented as of this encounter Goals Goal [...] documented as of this encounter Care Teams Cloth Dyer Relationship Specialty Start Date End Date Dominique Alcaraz MD 230 [place] [address] PCP - General Family Medicine 12/20/12 Martina Wesley, BetsyD 230 [place] [address] Pharmacist Internal Medicine 03/12/22 Refugio Huston MD 2[address] [place] [address] Nephrology 05/01/24 Chun Álvarez MD 575 [place] [address] Hematology and Oncology 05/01/24 Moses Dumont MD 596 [place] [address] Cardiology 05/01/24 documented as of this encounter
--- OUTSIDE RECORDS SUMMARY | 2024-06-30 13:18 | XMS_ITS | Clinical Summary ---
Author Organization [employer] [facility] Address [address] 7t [place] [address] Care Team Providers Care Gauger Chief Delivery Name Role Phone Dominique Alcaraz MD Primary Care Provider + [phone] Martina Wesley PharmD Unavailable Refugio Huston MD Unavailable [phone] Chun Álvarez MD Unavailable [phone] Moses Dumont MD Unavailable [phone] Allergies Active Allergy Reactions Criticality Noted Date Comments Lisinopril Palpitations,Shortne ss of breath High 05/22/2010 Other reaction(s): palpitations, SOB Medications aspirin 81 MG EC tablet Take 1 tablet by mouth in the morning. 12/14/19 13 Active Ferrous Sulfate (iron) 325 (65 Fe) MG tablet TAKE 1 TABLET BY MOUTH ONCE DAILY WITH BREAKFAST 06/10/19 23 Active atorvastatin (Lipitor) 80 MG tabletIndication s:Type 2 diabetes mellitus without complication, 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 group home insulin use ([facility]) TAKE 1 TABLET BY MOUTH ONCE DAILY 30 tablet 11 05/07/19 24 Active glucose blood (FREESTYLE LITE) test stripIndications :Type 2 diabetes mellitus with chronic kidney disease, without long-term current use of insulin, unspecified CKD stage ([facility]) TEST BLOOD SUGAR TWICE DAILY 100 each [...] 25 Active metoprolol tartrate (Lopressor) 50 MG tabletIndication s:Primary hypertension TAKE 1 TABLET BY MOUTH TWICE DAILY 60 tablet 04/25/19 25 Active TRUEplus Lancets 33G miscIndications: Type 2 diabetes mellitus with chronic kidney disease, without long-term current use of insulin, unspecified CKD stage (CMS/HCC) TEST BLOOD SUGAR TWICE DAILY 100 each 05/02/19 25 Active amoxicillin (Amoxil) 500 MG capsule TAKE 4 CAPSULES BY MOUTH ONCE BEFORE SURGERY 4 capsule 2 06/29/19 25 Active amoxicillin (Amoxil) 500 MG capsule TAKE 4 CAPSULES BY MOUTH ONCE BEFORE de SURGERY 4 capsule 2 04/27/19 25 025 Discontinued chlorhexidine (Peridex) 0.12 % solution Use 15 mL in the mouth or throat if needed in the morning, at noon, and at bedtime (PROPHYLAXIS) for up to 5 days. 110 mL 06/07/19 25 025 Active Problems Patient Care Coordination No te Formatting of this note migh t be different from the original. Enrolled in [facility] DM and [facility] HTN clinic with Betsy JamesonD, [facility] Nursing Clinical Director: [employer]i [employer] Agency: [employer] Problem Noted Date Diagnosed Date Cardiac risk [...] Cano last done 06/18/2022 -dental home is [facility] -Health care proxy 11/03/23 Assessment & Plan (11/03/2023 9:32 AM EDT): -next physical exam due after 11/05/2023 -eye care facilitated by Dr. Cano last done 06/18/2022 -dental home is [facility] -Health care proxy 11/03/23 Assessment & Plan (11/04/2022 9:18 AM EDT): -next physical exam due after 11/05/2023 -eye care facilitated by Dr. Cano last done 05/2022 -dental home is [facility] Low back pain without sciatica 11/04/2022 Overview (11/04/2022): PT referral done 11/04/2022. Assessment & Plan (11/04/2022 9:23 AM EDT): PT referral done 11/04/2022. Pre-op evaluation 08/05/2022 Overview (11/03/2023): For cataract surgery at [facility] with Dr. Gusman. Pt with mechanical valve [...] surgery on 11/15/23. After this appointment the associate professor of physics will be able to determine what medications should or can be held. Assessment & Plan (11/03/2023 9:26 AM EDT): For cataract surgery at [facility] with Dr. Gusman. Pt with mechanical valve [...] was treated medically as if she was post-WV. Pt was started on both Aspirin and Lipitor. No longer on Plavix. She was on on Digoxin 250 mcg but this was DISCONTINUED in Dec 2012 due to sinus pauses noted at cardiac rehab and her Metoprolol was increased to 25 mg po TID, she is now on aspirin and Coumadin. Last note from cardiac surgery is dated 12/08/12. Her associate professor of physics is Dr. Moses Dumont, last visit 05/2018 -PT NEEDS ANTIBIOTIC PROPHLAXIS PRIOR TO DENTAL WORK - RX AMOXICILLIN 2G PRIOR TO DENTAL WORK -Seen by Dr. Dumont 12/2022 recommending follow up 1 year -note from Patient followed at [facility] with Dr. John Dumont, DO. 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 Pt was started on both Aspirin and Lipitor. No longer on Plavix. She was on on Digoxin 250 mcg but this was DISCONTINUED in Dec 2012 due to sinus pauses noted at cardiac rehab and her Metoprolol was increased to 25 mg po TID, she is now on aspirin and Coumadin. Last note from cardiac surgery is dated 12/08/12. Her associate professor of physics is Dr. 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 Pt was started on both Aspirin and Lipitor. No longer on Plavix. She was on on Digoxin 250 mcg but this was DISCONTINUED in Dec 2012 due to sinus pauses noted at cardiac rehab and her Metoprolol was increased to 25 mg po TID, she is now on aspirin and Coumadin. Last note from cardiac surgery is dated 12/08/12. Her associate professor of physics is Dr. Moses Dumont, last visit 05/2018 [...] in 2005 - Previously followed by [facility]. Last note dated 10/03/2013. Follow up annually for mammo and office visit. - [facility] no longer accepting pt's insurance so now followed at [facility] q [address] Pryor. -Last [...] in 2005 - Previously followed by the [facility] and [facility]. Last note dated 10/03/2013. Follow up annually for mammo and office visit. - [facility] no longer accepting pt's insurance so now followed at [facility] q [address] Pryor. -Last seen by oncology on 08/25/2019. 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 Last note dated 10/03/2013. Follow up annually for mammo and office visit. - [facility] no longer accepting pt's insurance so now followed at [facility] q [address] Pryor. -Last seen by oncology on 08/25/2019. -Recent Mammo 04/11/21 BI-RADS 2 benign Atrial fibrillation 03/26/2013 Overview (12/22/2023): - continue choric anticoagulation INR goal 2.5-3.5 due to heart valve repair -note from Patient followed at [facility] with Dr. John Dumont DO. [...] 80mg daily -ordered lipid panel 11/03/23 -offered Hawkins-3s, bu wants to trial lifestyle changes. Will [...] 80mg daily -ordered lipid panel 11/03/23 -offered Hawkins-3s, bu wants to trial lifestyle changes. Will [...] Encounters Date Type Department Care Team Description 06/27/2024 Refill [facility] [address] [place] [address] Dominique Alcaraz MD 06/06/2024 3:00 PM EDT Office Visit [facility] DENTAL [address] [place] [address] [phone] Brendan Walsh DMD 06/05/2024 Orders Only GENERIC EXTERNAL DATA DEPARTMENT Provider, Generic External Data 05/19/2024 Orders Only GENERIC EXTERNAL DATA DEPARTMENT Provider, Generic External Data 05/04/2024 Abstract [facility] [address] [place] [address] Sunitha Singleton MA 05/02/2024 1:00 PM EST Office Visit [address] [phone] Simran Crooks Periodontal disease (Primary Dx) 05/01/2024 Orders Only [facility] [address] [place] [address] Dominique Alcaraz MD Type 2 diabetes mellitus with chronic kidney disease, without long-term current use of insulin, unspecified CKD stage (CMS/HCC) (Primary Dx); Atypical ductal hyperplasia of breast 04/27/2024 Refill [facility] [address] [place], [place] [phone] Dominique Alcaraz MD 04/24/2024 Refill [facility] [address] [place], [place] [phone] Dominique Alcaraz MD Primary hypertension 04/19/2024 Orders Only GENERIC EXTERNAL DATA DEPARTMENT Provider, Generic External Data 04/18/2024 Refill [facility] [address] [place], [place] [phone] Dominique Alcaraz MD History of aortic valve repair; Paroxysmal atrial fibrillation (CMS/HCC) from Last 3 Months Immunizations Name Administration [...] antigen) 11/17/2011 [place] SARS-CoV-2 Vaccination 05/15/2020 Novel [id number] 11/19/2015 Pfizer Covid-19 Vaccine 12+ 01/31/2021 Pfizer [...] Description 07/10/2024 2:00 PM EDT Office Visit [facility] [address] [place] [address] Simran Crooks [address] [place] [address] 07/25/2024 10:00 AM EDT Medication Management [facility] [address] [place], [place] [phone] Martina Wesley, PharmD [address] [place] [address] 11/07/2024 1:00 PM EDT Office Visit [facility] [address] [place] [address] Simran Crooks [address] [place] [address] Health Maintenance Due Date Last Done Comments [...] included. Protime 29.1(H) 11.1 - 13.5 sec [facility] 06/05/2024 1:35 PM EDT 06/05/2024 1:36 PM EDT us Generic External Data Provider LAB BLOOD ORDERAB LES Final Result Performing Organization Address City/State/[facility] Co de Phone Number [facility] [address] [place] [phone] * (ABNORMAL) ~PT, ~INR - ANTI COAG CLINIC (06/05/2024 1:35 PM EDT) Only the most recent of4 resultswithin the time period is included. Prothrombin Time INR 2.4(H) 0.9 - 1.1 [facility] Comment:METER #: [id number] TERNATIONAL NORMALIZED RATIO (INR) REFERENCE RANGES Reference [...] Provider LAB BLOOD ORDERAB LES Final Result [facility] [address] [place] [phone] [phone] * Hm Mammography (05/04/2024 11:40 AM EST) HM Mammogram BIRADS 2 Normal, Abnormal, BIRADS 1 , BIRADS 2 Comment:follow up one year Anatomical Region Laterality Modality Other us Historical Provider MD HEALTH MAINTENANCE Final Result * BI Mammogram Screening Tomosynthesis Bilateral (04/20/2024 1:15 PM EST) Anatomical Region Laterality Modality Breast Bilateral Mammography 04/20/2024 1:15 PM EST Narrative 04/28/2024 3:03 PM EST ? [facility] ? [address] ?[place] [address] ? Mammography Report ? Signed ? Patient: Dyan Mart L ?MR#: [id number] ?? [id number] ? : 1955 ?Acct:[id number] ? Age/Sex: 68 / F ?ADM Date: 02/20/25 ? Loc: HO.MAMMO ? Attending Dr: Dominique Alcaraz MD ? Ordering Physician: Dominique Alcaraz MD ?Results: 2B ?? enign Findings ? Date of Service: //25 ?Follow Up: 1 Year From Orig ?? inal Mammogram ? Procedure(s): MM tomosynthesis screening BI ?? Accession Number(s): [id number] ? cc: Dominique Alcaraz MD ? EXAMINATION: [...] DD/ 1315 ? TD/TT: 04/20/24 1351 ? Triage Specialist: ? Procedure Note Ivan, Stan - 04/28/2024 [facility] [address] [place] [address] Dr. [place], [place] [address] Mammography Report Signed Patient: Dyan Mart LMR#: [id number] : 6Acct:[id number] Age/Sex: 68 / FADM Date: 04/20/24 Loc: HO.MAMMO Attending Dr: Dominique Alcaraz MD Ordering Physician: Dominique Alcaraz MDResults: 2B enign Findings Date of Service: 04/20/24Follow Up: 1 Year From [facility] ina Mammogram Procedure(s): MM tomosynthesis screening BI Accession Number(s): [id number] cc: Dominique Alcaraz MD EXAMINATION: MM SCREENING [...] 04/28/24 1500 DD/ 1315 TD/TT: 04/20/24 1351 Triage Specialist: us Dominique Alcaraz MD IMG BI PROCEDURES Final Re sult * (ABNORMAL) POCT HGB A1C (01/24/2024 10:04 AM EST) Hemoglobin A1C 6.8(A) 4.0 - 6.0 % QC Media Lot # [id number] Lot# Expiration Date [id number] Blood 01/24/2024 10:0 4 AM EST Dominique Alcaraz MD POINT OF CARE TEST ENTER/E DIT ORDERABLES Final Result * (ABNORMAL) Lipid Panel, Standard (07/30/2023 8:15 AM EDT) Triglycerides 239(H) <150 mg/dL [facility] Comment:Desirable Triglyceri de: less than 150 mg/dLBorderline High Triglyceride 150-199 mg/dLHigh Triglyceride: 200-499 mg/dLVery High Triglyceride: greater than or equal to 5OO mg/dL Cholesterol 154 <200 mg/dL [facility] Comment:Desirable Cholestero l: less than 200 mg/dLBorderline High Cholesterol: 200-239 mg/dLHigh Cholesterol: greater than 239 mg/dL LDL Cholesterol Calculated 70 <100 mg/dL [facility] Comment:Desirable LDL: less than 100 mg/dLNear Optimal/Above Optimal LDL: 110- 129 mg/dLBorderline High LDL: 130-159 mg/dLHigh LDL: 160-189 mg/dLVery High LDL: greater than or equal to 190 mg/dL HDL Cholesterol 37(L) >40 mg/dL [facility] Comment:Desirable HDL: great er than 40 mg/dL Note: This HDL assay may give artificially low results in patients with liver disease. 07/30/2023 8:15 AM EDT 07/30/2023 11:12 AM EDT Dominique Alcaraz MD LAB BLOOD ORDERABLES Final Result [facility] [address] [place] [phone] * Diabetes Eye Exam (06/18/2022) Eye Exam Normal Normal Christiano Morley MD HEALTH MAINTENANCE Final Result * Colonoscopy (09/03/2018 12:11 PM EDT) Historical Peyman [place] HEALTH MAINTENANCE Final Result from Last 3 Months or Most Recently Relevant to Health Maintenance Insurance [facility] [employer] OPTIONS (O D-SNP) DENTAL [facility] Advance Directives Documents on File Type Date Recorded Patient Salesforce Specialist Expl anation Advance Directives and Living Will 11/04/2023 11:37 AM Health Care Proxy Care Teams Gauger Chief Delivery Relationship Specialty Start Date End Date Dominique Alcaraz MD [address] [place] [address] PCP - General Family Medicine 12/20/12 Martina Wesley, BetsyD [address] [place] [address] Pharmacist Internal Medicine 03/12/22 Refugio Huston MD [address] [place] [address] Nephrology 05/01/24 Chun Álvarez MD [address] [place] [address] Hematology and Oncology 05/01/24 Moses Dumont MD [address] [place] [address] Cardiology 05/01/24
--- OUTSIDE RECORDS SUMMARY | 2024-06-30 13:19 | XMS_ITS | Encounter Summary ---
Author Organization [employer] [facility] Address [address] 7t [place] [address] Care Team Providers Care Technical Sales Representatives Name Role Phone Dominique Alcaraz MD Primary Care Provider Martina Wesley PharmD Unavailable Refugio Huston MD Unavailable [phone] Chun Álvarez MD Unavailable [phone] Moses Dumont MD Unavailable [phone] Reason for Visit * Reason Comments Med Refill Encounter Details Date Type Department Care Team (Late st Contact Info) Description 05/07/2023 Refill [facility] [address] [place], [place] [phone] Dominique Alcaraz MD [address] [place], [place] [phone] Type 2 diabetes mellitus without complication, 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 dedicated 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 insulin use ([facility]) Social History Tobacco Use Types Packs/Day [...] Description 07/10/2024 2:00 PM EDT Office Visit [facility] [address] [place] [address] Simran Crooks [address] [place] [address] 07/25/2024 10:00 AM EDT Medication Management [facility] [address] [place] [address] Martina Wesley PharmD [address] [place] [address] 11/07/2024 1:00 PM EDT Office Visit [facility] [address] [place] [address] Simran Crooks [address] [place] [address] documented as of this encounter Goals Goal Patient Goal Type Associated Problems Recent Progress Patient-Stated? Author Blood Pressure < 140/90 Blood Pressure 134/78(2024 1:21 PM EDT) No Jamaris-Maria Isabel Jaffesa, PharmD Hemoglobin A1c < 7 Result Component 6.8( 10:04 AM EST) No JamarisMartina Levine, PharmD documented as of this encounter Visit Diagnoses Diagnosis Type 2 diabetes mellitus without complication, 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 fdc insulin use ([facility]) documented in this encounter Additional Health Concerns Assessment Noted Time PHQ-9 Depression Total Score: 0 07/09/19 23 3:56 PM EDT documented as of this encounter Care Teams Technical Sales Representatives Relationship Specialty Start Date End Date Dominique Alcaraz MD [address] [place] [address] PCP - General Family Medicine 12/20/12 Martina Wesley, PharmD [address] [place] [address] Pharmacist Internal Medicine 03/12/22 Refugio Huston MD [address] [place] [address] Nephrology 05/01/24 Chun Álvarez MD [address] [place] [address] Hematology and Oncology 05/01/24 Moses Dumont MD [address] [place] [address] Cardiology 05/01/24 documented as of this encounter
--- OUTSIDE RECORDS SUMMARY | 2024-06-30 13:19 | XMS_ITS | Encounter Summary ---
Author Organization [employer] [facility] Address [address] 7t [place] [address] Care Team Providers Care Accounts Supervisor Name Role Phone Dominique Alcaraz MD Primary Care Provider + [phone] Martina Wesley PharmD Unavailable Refugio Huston MD Unavailable [phone] Chun Álvarez MD Unavailable [phone] Moses Dumont MD Unavailable [phone] Reason for Visit * Reason Onset Date Comments Pre op 09/23/2023 Encounter Details Date Type Department Care Team (Late st Contact Info) Description 09/23/2023 Telephone [facility] MED[facility]INE [address] [place], [place] [phone] Dominique Alcaraz MD [address] [place], [place] [phone] Pre op Social History Tobacco Use Types [...] No Surgeon's name: mercedes mohan Facility name: [id number] [address] Surgeon's office number: [phone] Surgeon's office fax number: [phone] Contact name (person you spoke with): [place] Last office note from surgeon requested: No * Telephone Encounter - Bharti Fregoso - 09/23/2023 12:23 PM EDT Date of Surgery: right eye 11/15/23 and left eye 11/28 Surgical procedure being done: cataract surgery both eyes Type of anesthesia: local anesthesia Lab needed: No EKG: No Surgeon's name: mercedes mohan Facility name: [address], [place] [address] Surgeon's office number: [phone] Surgeon's office fax number: [phone] Contact name (person you spoke with): [place] Last office note from surgeon requested: No documented in this encounter Plan of Treatment Upcoming Encounters Date Type Department Care Team (Late st Contact Info) Description 07/10/2024 2:00 PM EDT Office Visit [facility] D[facility]AL [address] [place] [address] Simran Crooks [address] [place] [address] 07/25/2024 10:00 AM EDT Medication Management [facility]INE [address] [place] [address] JamarisMartina Larsen, PharmD [address] [place] [address] 11/07/2024 1:00 PM EDT Office Visit [facility] D[facility] [address] [place] [address] [address] documented as of this encounter Goals Goal [...] documented as of this encounter Care Teams Accounts Supervisor Relationship Specialty Start Date End Date Dominique Alcaraz MD [address] [place] [address] PCP - General Family Medicine 12/20/12 JamariMartina Jane, PharmD [address] [place] [address] Pharmacist Internal Medicine 03/12/22 Refugio Huston MD [address] [place] [address] Nephrology 05/01/24 Chun Álvarez MD [address] [place] [address] Hematology and Oncology 05/01/24 Moses Dumont MD [address] [place] [address] Cardiology 05/01/24 documented as of this encounter
--- OUTSIDE RECORDS SUMMARY | 2024-06-30 13:19 | XMS_ITS | Encounter Summary ---
Author Organization [employer] [facility] Address [address] 7[address] [place] [address] Care Team Providers Care Kick Press Setter Name Role Phone Dominique Alcaraz MD Primary Care Provider + [phone] Martina Wesley PharmD Unavailable [phone] Refugio Huston MD Unavailable [phone] Chun Álvarez MD Unavailable [phone] Moses Dumont MD Unavailable [phone] Encounter Details Date Type Department Care Team (Late st Contact Info) Description 05/04/2024 Abstract [facility]INE [address] [place] [address] Sunitha Singleton [place] Social History Tobacco Use [...] Description 07/10/2024 2:00 PM EDT Office Visit [facility] DENTAL [address] [place] [address] Simran Crooks [address] [place] [address] 07/25/2024 10:00 AM EDT Medication Management [facility] [address] [place] [address] Martina Wesley PharmD [address] [place] [address] 11/07/2024 1:00 PM EDT Office Visit [facility] D[facility] [address] [place] [address] Simran Crooks [address] [place] [address] documented as of this encounter Goals Goal [...] documented as of this encounter Care Teams Kick Press Setter Relationship Specialty Start Date End Date Dominique Alcaraz MD [address] [place] [address] PCP - General Family Medicine 12/20/12 Martina Wesley, PharmD [address] [place] [address] Pharmacist Internal Medicine 03/12/22 Refugio Huston MD [address] [place] [address] Nephrology 05/01/24 Chun Álvarez MD [address] [place] [address] Hematology and Oncology 05/01/24 Moses uDmont MD [address] [place] [address] Cardiology 05/01/24 documented as of this encounter
[2024-06-30 13:29] LABS: Prothrombin Time Whole Bld POC 31.6 sec (11.1-13.5); ~PT, ~INR - Anti Coag Clinic 2.6 (0.9-1.1)
--- NOTE | 2024-06-30 14:38 | MHC.OFFVISCO ---
Intake Intake Visit Reasons: Anticoagulation Allergies lisinopril [LISINOPRIL] Allergy (Intermediate, Verified 06/30/24 13:02) rash/cough, palpitations Medication List - Last Reconciled 06/30/24 by Kianna Aviles RN amlodipine 5 mg PO DAILY amoxicillin 1,000 mg PO BID aspirin 81 mg PO DAILY atorvastatin 80 mg PO BEDTIME blood sugar diagnostic (FreeStyle Lite Strips) As directed blood-glucose meter (FreeStyle Adell Lite kit) As directed calcium carbonate (Calcium Antacid) mg PO cholecalciferol (vitamin D3) (Vitamin D3) 25 mcg PO DAILY cyanocobalamin (vitamin B-12) (Vitamin B-12) 500 mcg PO DAILY empagliflozin (Jardiance) 25 mg PO DAILY ferrous sulfate 325 mg PO DAILY lancets (TRUEplus Lancets) As directed metformin ER 500 mg PO QPM metoprolol tartrate 1 tab PO BID telmisartan (Micardis) 80 mg PO DAILY warfarin 5 mg See Protocol PO DIRECTED warfarin 2.5 mg See Protocol PO DIRECTED Nursing Note INR: 2.6 in therapeutic range Medications and supplements reviewed Pt to have dental cleaning 06/10/2024 and to have INR morning of - she will eat greens few days before to make sure INR is on the low side of her therapeutic range Denies any signs and symptoms of bleeding or bruising or clotting. Bleeding, bruising, clotting discussed Nutritional guidance given Dose: keep same warfarin dose 5mg x 2 days/ 2.5mg x 5 days F/U INR: 07/10/2024 Patient verbalizes understanding of instructions given Anti-Coag Initial Assessment Social Hx Patient Tobacco Use Status: Never used Tobacco alcohol intake: former Alcohol intake frequency: does not drink Coding Level of Care Code Est Patient Level 1 Diagnoses Current use of anticoagulant therapy Z79.01 Results AMB INR Fingerstick AMB INR Fingerstick 2.6 Last Edit by Kianna Aviles RN on 06/30/24 13:11 manual entry Assessment & Plan Assessment & Plan (1) Current use of anticoagulant therapy: Code(s): Z79.01 - half-way (current) 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
== END 2024-06-30 14:42 | disposition home or self-care (01) ==
LOC: HO.ACS 12:57
PROVIDERS: PCP Family Medicine; Visit Provider Internal Medicine Medical Oncology
DX: Z79.01 Long term (current) use of anticoagulants (principal)

== ENCOUNTER → 2024-06-30 12:57 | Outpatient (BNVA) | payer OTHER, SELFPAY | PROVIDERS: PCP Family Medicine; Visit Provider Internal Medicine Medical Oncology | DX: Z95.2 Presence of prosthetic heart valve (principal); Z51.81 Encounter for therapeutic drug level monitoring; Z79.01 Long term (current) use of anticoagulants | CPT/HCPCS: 85610; 99211 ==

== ENCOUNTER 2024-07-10 10:08 | Outpatient (AMB) | payer OTHER, SELFPAY ==
[2024-07-10 10:29] LABS: ~PT, ~INR - Anti Coag Clinic 3.5 (0.9-1.1)
--- NOTE | 2024-07-10 10:29 | MHC.OFFVISCO ---
Intake Intake Visit Reasons: Anticoagulation Allergies lisinopril [LISINOPRIL] Allergy (Intermediate, Verified 07/10/24 10:16) rash/cough, palpitations Medication List - Last Reconciled 07/10/24 by Adelina Garcia RN amlodipine 5 mg PO DAILY amoxicillin 1,000 mg PO BID aspirin 81 mg PO DAILY atorvastatin 80 mg PO BEDTIME blood sugar diagnostic (FreeStyle Lite Strips) As directed blood-glucose meter (FreeStyle [place] Lite kit) As directed calcium carbonate (Calcium Antacid) mg PO cholecalciferol (vitamin D3) (Vitamin D3) 25 mcg PO DAILY cyanocobalamin (vitamin B-12) (Vitamin B-12) 500 mcg PO DAILY empagliflozin (Jardiance) 25 mg PO DAILY ferrous sulfate 325 mg PO DAILY lancets (TRUEplus Lancets) As directed metformin ER 500 mg PO QPM metoprolol tartrate 1 tab PO BID telmisartan (Micardis) 80 mg PO DAILY warfarin 5 mg See Protocol PO DIRECTED warfarin 2.5 mg See Protocol PO DIRECTED Nursing Note INR: 3.5 in therapeutic range of 2.5-3.5 Medications and supplements reviewed No changes in health, diet, medications, or supplements, Denies any signs and symptoms of bleeding or bruising or clotting. Bleeding, bruising, clotting discussed Nutritional guidance given to have a serving of greens today Dose: 2.5mg today then 5mg tomorrow. then usual dose of 2.5mg X 5 days and 5mg X 2 days Pt going for a teeth cleaning today so today's usual dose of 5mg switched with tomorrow's dose of 2.5mg. F/U INR: 2 weeks Patient verbalizes understanding of instructions given Anti-Coag Initial Assessment Social Hx Patient Tobacco Use Status: Never used Tobacco alcohol intake: former Alcohol intake frequency: does not drink Coding Level of Care Code Est Patient Level 1 Diagnoses Current use of anticoagulant therapy Z79.01 Results AMB INR Fingerstick AMB INR Fingerstick 3.5 Last Edit by Adelina Garcia RN on 07/10/24 10:22 interface delay Assessment & Plan Assessment & Plan (1) Current use of anticoagulant therapy: Code(s): Z79.01 - [facility] (current) 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
--- OUTSIDE RECORDS SUMMARY | 2024-07-10 10:34 | XMS_ITS | Encounter Summary ---
Author Organization [facility] Address [address] [place] [address] Phone Care Team Providers Care Regional Sales Associate Name Role Phone Unavailable Primary Care Provider Unavailabl e Encounter Details Date Type Department Care Team (Late st Contact Info) Description 10/17/2021 Orders Only [facility] [address] [place] [address] Lyle Blancas MD [address] [place] [address] [place] [address] Stage 3a chronic kidney disease [...] Care Team (Late st Contact Info) Description 10/10/2024 2:20 PM EDT Office Visit [facility] [address] [place] [address] Refugio Huston MD [address] [place] [address] [place] [address] Scheduled Orders Name Type Priority [...]
--- OUTSIDE RECORDS SUMMARY | 2024-07-10 10:34 | XMS_ITS | Encounter Summary ---
Author Organization [facility] Address [address] [place] [address] Phone Care Team Providers Care Robotics Specialist Name Role Phone Unavailable Primary Care Provider Unavailabl e Encounter Details Date Type Department Care Team (Late st Contact Info) Description 11/04/2021 Documentation Only [facility] [address] [place] [address] Cesia Perry PA Social History [...] Department Care Team (Late Contact Info) Description 10/10/2024 2:20 PM EDT Office Visit [facility] [address] [place] [address] Refugio Huston MD [address] [place] [address] [place] [address] documented as of this encounter Visit Diagnoses Not on filedocumented in this encounter
--- OUTSIDE RECORDS SUMMARY | 2024-07-10 10:34 | XMS_ITS | Encounter Summary ---
Author Organization [facility] Address [address] [place] [address] Phone Care Team Providers Care Hot Cell Technician Name Role Phone Unavailable Primary Care Provider Unavailabl e Encounter Details Date Type Department Care Team (Late st Contact Info) Description 06/08/2022 Documentation Only [facility] [address] [place] [address] Cesia Perry PA Social History [...] Visit [facility] [address] [place] [address] Refugio Huston MD [address] [place] [address] [place] [address] documented as of this encounter Visit Diagnoses Not on filedocumented in this encounter
--- OUTSIDE RECORDS SUMMARY | 2024-07-10 10:34 | XMS_ITS | Encounter Summary ---
Author Organization [employer] Address [address] 7t [place] [address] Care Team Providers Care Cigar Packer Name Role Phone Dominique Alcaraz MD Primary Care Provider Martina Wesley PharmD Unavailable Refugio Huston MD Unavailable Chun Álvarez MD Unavailable [phone] Moses Dumont MD Unavailable [phone] Encounter Details Date Type Department Care Team (Late st Contact Info) Description 05/01/2024 Orders Only [facility] MEDICINE [address] [place], [place] [phone] Dominique Alcaraz MD [address] [place], [place] [phone] Type 2 diabetes mellitus with chronic kidney [...] the past 12 months, has t he [employer], gas, oil or water company threatened to [...] Description 07/10/2024 2:00 PM EDT Office Visit [facility] [address] [place] [address] Simran Crooks [address] [place] [address] 07/25/2024 10:00 AM EDT Medication Management [facility] MEDICINE [address] [place] [address] Martina Wesley, PharmD [address] [place] [address] 10/18/2024 2:15 PM EDT Office Visit [facility] MEDICINE [address] [place] [address] Dominique Alcaraz MD [address] [place] [address] 11/07/2024 1:00 PM EDT Office Visit [facility] [address] [place] [address] Simón Crooksine [address] [place], [place] [phone] documented as of this encounter Goals Goal Patient Goal Type Associated Problems Recent Progress Patient-Stated? Author Blood Pressure < 140/90 Blood Pressure 134/78(2024 1:21 PM EDT) No Piers-Gambl eMartina, PharmD Hemoglobin A1c < 7 Result Component 6.8( 10:04 AM EST) No Piers-Gambl Martina mcmahan, PharmD documented as of this encounter Procedures [...] current use of insulin, unspecified CKD stage ([facility]) documented in this encounter Results * (ABNORMAL) PROTHROMBIN TIME WHOLE BLD POC (05/01/2024 1:32 PM EST) Protime 27.7(H) 11.1 - 13.5 sec [facility] 05/01/2024 1:32 PM EST 05/01/2024 1:34 PM EST us Generic External Data Provider LAB BLOOD ORDERAB LES Final Result [facility] [address] [place] [address] [phone] * (ABNORMAL) ~PT, ~INR - ANTI COAG CLINIC (05/01/2024 1:32 PM EST) Prothrombin Time INR 2.3(H) 0.9 - 1.1 [facility] Comment:METER #: [id number] TERNATIONAL NORMALIZED RATIO (INR) REFERENCE RANGES Reference [...] Provider LAB BLOOD ORDERAB LES Final Result [facility] [address] [place] [address] [phone] documented in this encounter Visit Diagnoses [...] documented as of this encounter Care Teams Cigar Packer Relationship Specialty Start Date End Date Dominique Alcaraz MD [address] [place] [address] PCP - General Family Medicine 12/20/12 Martina Wesley, PharmD [address] [place] [address] Pharmacist Internal Medicine 03/12/22 Refugio Huston MD [address] [place] [phone] Nephrology 05/01/24 Chun Álvarez MD [address] [place] [address] Hematology and Oncology 05/01/24 Moses Dumont MD [address] [place] [address] Cardiology 05/01/24 documented as of this encounter
--- OUTSIDE RECORDS SUMMARY | 2024-07-10 10:34 | XMS_ITS | Encounter Summary ---
Author Organization [facility] Address [address] [place] [address] Phone Care Team Providers Care Bench Assembler Electrical Name Role Phone Unavailable Primary Care Provider Unavailabl e Reason for Visit * Reason Comments Med Refill Encounter Details Date Type Department Care Team (Late Contact Info) Description 02/18/2021 Refill [facility] [address] [place] [address] Lyle Blancas MD [address] [place] [address] Social History Tobacco Use Types [...] Visit [facility] [place], [address] [place] [address] Refugio Huston MD [address] [place] [address] documented as of this encounter Visit Diagnoses Not on filedocumented in this encounter
--- OUTSIDE RECORDS SUMMARY | 2024-07-10 10:34 | XMS_ITS | Encounter Summary ---
Author Organization [facility] Address [address] [place] [address] Phone Care Team Providers Care Gse Mechanic Name Role Phone Unavailable Primary Care Provider Unavailabl e Encounter Details Date Type Department Care Team (Late st Contact Info) Description 03/12/2023 Documentation Only [facility] [address] [place] [address] Cesia Perry PA Social History [...] [facility] [address] [place] [address] Refugio Huston MD [address] [place] [address] [place] [address] documented as of this encounter Visit Diagnoses Not on filedocumented in this encounter
--- OUTSIDE RECORDS SUMMARY | 2024-07-10 10:34 | XMS_ITS | Encounter Summary ---
Author Organization [employer] Address [address] [facility] 7t [place] [address] Care Team Providers Care Hassock Maker Name Role Phone Dominique Alcaraz MD Primary Care Provider Martina Wesley PharmD Unavailable [phone] Refugio Huston MD Unavailable [phone] Chun Álvarez MD Unavailable [phone] Moses Dumont MD Unavailable [phone] Encounter Details Date Type Department Care Team (Late st Contact Info) Description 10/30/2022 Abstract [facility] MEDICINE [address] [place], [place] [phone] Dominique Alcaraz MD [address] [place], [place] [phone] Social History Tobacco Use Types Packs/Day Years [...] Description 07/10/2024 2:00 PM EDT Office Visit [facility] DENTAL [address] [place] [address] Simran Crooks [address] [place] [address] 07/25/2024 10:00 AM EDT Medication Management [facility] MEDICINE [address] [place] [address] Martina Wesley PharmD [address] [place] [address] 10/18/2024 2:15 PM EDT Office Visit [facility] MEDICINE [address] [place] [address] Dominique Alcaraz MD [address] [place] [address] 11/07/2024 1:00 PM EDT Office Visit [facility] D[facility]AL [address] [place] [address] Simran Crooks [address] [place] [address] [phone] documented as of this encounter Goals Goal [...] documented as of this encounter Care Teams Hassock Maker Relationship Specialty Start Date End Date Dominique Alcaraz MD [address] [place] [address] [phone] PCP - General Family Medicine 12/20/12 Martina Wesley, PharmD [address] [place] [address] Pharmacist Internal Medicine 03/12/22 Refugio Huston MD [address] [place] [address] Nephrology 05/01/24 Chun Álvarez MD [address] [place] [address] Hematology and Oncology 05/01/24 Moses Dumont MD [address] [place] [address] Cardiology 05/01/24 documented as of this encounter
--- OUTSIDE RECORDS SUMMARY | 2024-07-10 10:34 | XMS_ITS | Encounter Summary ---
Author Organization [employer] Address [address] [facility] 7t [place] [address] Care Team Providers Care Sales Development Associate Name Role Phone Dominique Alcaraz MD Primary Care Provider + [phone] Martina Wesley PharmD Unavailable Refugio Huston MD Unavailable [phone] Chun Álvarez MD Unavailable [phone] Moses Dumont MD Unavailable [phone] Reason for Visit * Reason Onset Date Comments OUTREACH 07/06/2024 Encounter Details Date Type Department Care Team (Late st Contact Info) Description 07/06/2024 Telephone [facility] MEDICINE [address] [place], [place] [phone] Dominique Alcaraz MD [address] [place], [place] [phone] OUTREACH Social History Tobacco Use Types Packs/Day Years [...] encounter Miscellaneous Notes * Telephone Encounter - Jose Logan MA - 07/06/2024 11:10 AM EDT T/C to pt to schedule a f/u chronic condition with PCP. Pt agreed to come in on 10/18/24 at 2:15pm. documented in this encounter Plan of Treatment Upcoming Encounters Date Type Department Care Team (Late st Contact Info) Description 07/10/2024 2:00 PM EDT Office Visit [facility] [address] [place], [place] [phone] Simran Crooks [address] [place], [place] [phone] 07/25/2024 10:00 AM EDT Medication Management [facility] MEDICINE [address] [place], [place] [phone] Martina Wesley, PharmD [address] [place], [place] [phone] 10/18/2024 2:15 PM EDT Office Visit [facility] MEDICINE [address] [place] [address] Dominique Alcaraz MD [address] [place] [address] 11/07/2024 1:00 PM EDT Office Visit [facility] [address] [place], [place] [phone] Simran Crokos [address] [place], [place] [phone] documented as of this encounter Goals Goal Patient Goal Type Associated Problems Recent Progress Patient-Stated? Author Blood Pressure < 140/90 Blood Pressure 134/78(2024 1:21 PM EDT) No Martina Tiwari PharmKourtney Hemoglobin A1c < 7 Result Component 6.8( 10:04 AM EST) No Martina Tiwari PharmD documented as of this encounter Visit Diagnoses Not on filedocumented in this encounter Additional Health Concerns Assessment Noted Time PHQ-9 Depression Total Score: 8 11/03/19 24 9:00 AM EDT documented as of this encounter Care Teams Sales Development Associate Relationship Specialty Start Date End Date Dominique Alcaraz MD [address] [place] [address] PCP - General Family Medicine 12/20/12 Martina Wesley PharmD [address] [place] [address] Pharmacist Internal Medicine 03/12/22 [place] [address] [place] [phone] Nephrology 05/01/24 Chun Álvarez MD [address] [place] [address] Hematology and Oncology 05/01/24 Moses Dumont MD [address] [place] [address] Cardiology 05/01/24 documented as of this encounter
--- OUTSIDE RECORDS SUMMARY | 2024-07-10 10:34 | XMS_ITS | Encounter Summary ---
Author Organization [employer] Address [address] [facility] [address] 7t [place] [address] Care Team Providers Care Remote Sensing Program Manager Name Role Phone Dominique Alcaraz MD Primary Care Provider + [phone] Martina Wesley PharmD Unavailable [phone] Refugio Huston MD Unavailable [phone] Chun Álvarez MD Unavailable [phone] Moses Dumont MD Unavailable [phone] Encounter Details Date Type Department Care Team (Late st Contact Info) Description 07/10/2024 Orders Only GENERIC EXTERNAL DATA DEPARTMENT Provider, [...] Description 07/10/2024 2:00 PM EDT Office Visit [facility] DENTAL [address] [place] [address] Simran Crooks [address] [place] [address] 07/25/2024 10:00 AM EDT Medication Management [facility] MEDICINE [address] [place] [address] Martina Wesley, PharmD [address] [place] [address] 10/18/2024 2:15 PM EDT Office Visit [facility] MEDICINE [address] [place] [address] Dominique Alcaraz MD [address] [place] [address] 11/07/2024 1:00 PM EDT Office Visit [facility] DENTAL [address] [place] [address] Simran Crooks [address] [place] [address] documented as of this encounter Goals Goal Patient Goal Type Associated Problems Recent Progress Patient-Stated? Author Blood Pressure < 140/90 Blood Pressure 134/78(2024 1:21 PM EDT) No Martina Tiwari PharmD Hemoglobin A1c < 7 Result Component 6.8( 10:04 AM EST) No Martina Tiwari PharmD documented as of this encounter Procedures Procedure Name Priority Date/Time Associated Diagnosis Comments PROTHROMBIN TIME WHOLE BLD POC Routine 07/10/2024 10:19 AM EDT ~PT, ~INR - ANTI COAG CLINIC Routine 07/10/2024 10:19 AM EDT documented in this encounter Results * (ABNORMAL) PROTHROMBIN TIME WHOLE BLD POC (07/10/2024 10:19 AM EDT) Protime 42.0(H) 11.1 - 13.5 sec [facility] 07/10/2024 10:1 9 AM EDT 07/10/2024 10:28 AM EDT us Generic External Data Provider LAB BLOOD ORDERAB LES Final Result [facility] [address] [place] [phone] * (ABNORMAL) ~PT, ~INR - ANTI COAG CLINIC (07/10/2024 10:19 AM EDT) Prothrombin Time INR 3.5(H) 0.9 - 1.1 [facility] Comment:METER #: [id number] TERNATIONAL NORMALIZED RATIO (INR) REFERENCE RANGES Reference RangeFor patients not on anticoagulant therapy: 0.9 - 1.1INR ranges for oral anticoagulanttherapy:For prevention and treatment of venous thrombosis and pulmonary embolism: 2.0 - 3.0For acute myocardial infarction with aspirin therapy: 2.0 - 3.0For acute myocardial infarction without aspirin therapy: 3.0 - 4.0For patients with mechanical prosthetic heart valves: 2.5 - 3.5 07/10/2024 10:1 9 AM EDT 07/10/2024 10:28 AM EDT us Generic External Data Provider LAB BLOOD ORDERAB LES Final Result [facility] [address] [place] [address] [phone] documented in this encounter Visit Diagnoses Not on filedocumented in this encounter Additional Health Concerns Assessment Noted Time PHQ-9 Depression Total Score: 8 11/03/19 24 9:00 AM EDT documented as of this encounter Care Teams Remote Sensing Program Manager Relationship Specialty Start Date End Date Dominique Alcaraz MD 230 [place] [address] PCP - General Family Medicine 12/20/12 Martina Wesley, BetsyD 230 [place] [address] Pharmacist Internal Medicine 03/12/22 Refugio Huston MD [address] [place] [phone] Nephrology 05/01/24 Chun Álvarez MD [address] [place] [address] Hematology and Oncology 05/01/24 Moses Dumont MD [address] [place] [address] Cardiology 05/01/24 documented as of this encounter
--- OUTSIDE RECORDS SUMMARY | 2024-07-10 10:34 | XMS_ITS | Encounter Summary ---
Author Organization [facility] Address [address] [place] [address] Phone Care Team Providers Care Cushion Assembler Name Role Phone Unavailable Primary Care Provider Unavailabl e Encounter Details Date Type Department Care Team (Late Contact Info) Description 10/27/2023 Documentation Only [facility] [address] [place] [address] Michelle Linares [address] [place] [address] Social History Tobacco Use Types [...] Visit [facility] [address] [place] [place] [address] Refugio Huston MD [address] [facility] [place] [address] documented as of this encounter Visit Diagnoses Not on filedocumented in this encounter
--- OUTSIDE RECORDS SUMMARY | 2024-07-10 10:34 | XMS_ITS | Encounter Summary ---
Author Organization [employer] Address [address] [facility] 7t [place] [address] Care Team Providers Care Company Doctor Name Role Phone Dominique Alcaraz MD Primary Care Provider + [phone] Martina Wesley PharmD Unavailable Refugio Huston MD Unavailable [phone] Chun Álvarez MD Unavailable [phone] Moses Dumont MD Unavailable [phone] Encounter Details Date Type Department Care Team (Late st Contact Info) Description 12/08/2023 Orders Only [facility] [address] [place] [address] Provider, MD Christiano Social History Tobacco Use [...] Office Visit [facility] DENTAL [address] [place] [address] Simran Crooks [address] [place] [address] 07/25/2024 10:00 AM EDT Medication Management [facility] MEDICINE [address] [place] [address] Martina Wesley PharmD [address] [place] [address] 10/18/2024 2:15 PM EDT Office Visit [facility] MEDICINE [address] [place] [address] Dominique Alcaraz MD [address] [place] [address] 11/07/2024 1:00 PM EDT Office Visit [facility] [address] [place] [address] Simran Crooks [address] [place] [address] documented as of this encounter Goals Goal [...] documented as of this encounter Care Teams Company Doctor Relationship Specialty Start Date End Date Dominique Alcaraz MD [address] [place] [address] PCP - General Family Medicine 12/20/12 Martina Wesley PharmD [address] [place] [address] Pharmacist Internal Medicine 03/12/22 Refugio Huston MD [address] [place] [address] Nephrology 05/01/24 Chun Álvarez MD 575 [place] [address] Hematology and Oncology 05/01/24 Moses Dumont MD [address] [place] [address] Cardiology 05/01/24 documented as of this encounter
--- OUTSIDE RECORDS SUMMARY | 2024-07-10 10:34 | XMS_ITS | Encounter Summary ---
Author Organization [employer] Address [address] [facility] 7t [place] [address] Care Team Providers Care Transportation Maintenance Worker Name Role Phone Dominique Alcaraz MD Primary Care Provider + [phone] Martina Wesley PharmD Unavailable Refugio Huston MD Unavailable [phone] Chun Álvarez MD Unavailable [phone] Moses Dumont MD Unavailable [phone] Reason for Visit * Reason Comments Med Refill Encounter Details Date Type Department Care Team (Late st Contact Info) Description 03/17/2023 Refill [facility] MEDICINE 230 [place], [place] [phone] Dominique Alcaraz MD [address] [place], [place] [phone] Vitamin D deficiency; Stage 2 chronic kidney [...] Description 07/10/2024 2:00 PM EDT Office Visit [facility] DENTAL [address] [place] [address] Simran Crooks [address] [place] [address] 07/25/2024 10:00 AM EDT Medication Management [facility] MEDICINE [address] [place] [address] Martina Wesley PharmD [address] [place] [address] 10/18/2024 2:15 PM EDT Office Visit [facility] MEDICINE [address] [place] [address] Dominique Alcaraz MD [address] [place] [address] 11/07/2024 1:00 PM EDT Office Visit [facility] DENTAL [address] [place] [address] Simran Crooks [address] [place] [place] [address] [phone] documented as of this encounter Goals Goal [...] documented as of this encounter Care Teams Transportation Maintenance Worker Relationship Specialty Start Date End Date Dominique Alcaraz MD [address] [place] [address] PCP - General Family Medicine 12/20/12 Martina Wesley PharmD [address] [place] [address] Pharmacist Internal Medicine 03/12/22 Refugio Huston MD [address] [place] [address] Nephrology 05/01/24 Chun Álvarez MD 575 [place] [address] Hematology and Oncology 05/01/24 Moses Dumont MD 596 [place] [address] Cardiology 05/01/24 documented as of this encounter
--- OUTSIDE RECORDS SUMMARY | 2024-07-10 10:34 | XMS_ITS | Clinical Summary ---
Author Organization [facility], Address [address] [place] [address] [place] [address] Phone Care Team Providers Care Ocular Care Technologist Name Role Phone Unavailable Primary Care Provider [...] Only [facility] [address] [place] [address] Priscilla Buitrago MA 06/21/2024 Refill [facility] [address] [place] [address] Priscilla Buitrago MA from Last 3 Months [...] Visit [facility] [address] [place] [address] Refugio Huston MD [address] [place] [phone] Health Maintenance Due Date Last Done Comments [...] 01/11/2021, Additional history exists Insurance Medicaid [place] [facility] Care Dual SNP ([id number])
--- OUTSIDE RECORDS SUMMARY | 2024-07-10 10:34 | XMS_ITS | Encounter Summary ---
Author Organization [facility] Address [address] [place] [address] Phone Care Team Providers Care Chronic Care Nurse Name Role Phone Unavailable Primary Care Provider Unavailabl e Encounter Details Date Type Department Care Team (Late Contact Info) Description 06/30/2024 Documentation Only [facility] [address] [place] [address] Priscilla Buitrago [place] [address] [place] [address] Social History Tobacco Use Types [...] [facility] [address] [place] [address] Refugio Huston MD [address] [facility] [place] [address] documented as of this encounter Visit Diagnoses Not on filedocumented in this encounter
--- OUTSIDE RECORDS SUMMARY | 2024-07-10 10:35 | XMS_ITS | Encounter Summary ---
Author Organization [employer] Address [address] [place] [address] Care Team Providers Care Spray Painter Helper Name Role Phone Dominique Alcaraz MD Primary Care Provider + [phone] Martina Wesley PharmD Unavailable [phone] Refugio Huston MD Unavailable [phone] Chun Álvarez MD Unavailable [phone] Moses Dumont MD Unavailable [phone] Encounter Details Date Type Department Care Team (Late st Contact Info) Description 05/04/2024 Abstract [facility] [address] [place], [place] [phone] Sunitha Singleton MA Social History Tobacco Use [...] Description 07/10/2024 2:00 PM EDT Office Visit [facility] [address] [place] [address] Simran Crooks [address] [place] [address] 07/25/2024 10:00 AM EDT Medication Management [facility] [address] [place] [address] Martina Wesley PharmD [address] [place] [address] 10/18/2024 2:15 PM EDT Office Visit [facility] [address] [place] [address] Dominique Alcaraz MD [address] [place] [address] 11/07/2024 1:00 PM EDT Office Visit [facility] [address] [place] [address] Simran Croosk [address] [place] [address] documented as of this encounter Goals Goal [...] us Historical Provider HEALTH MAINTENANCE Final Result documented in this encounter Visit Diagnoses Not on filedocumented in this encounter Additional Health Concerns Assessment Noted Time PHQ-9 Depression Total Score: 8 11/03/19 24 9:00 AM EDT documented as of this encounter Care Teams Spray Painter Helper Relationship Specialty Start Date End Date Dominique Alcaraz MD [address] [place] [address] PCP - General Family Medicine 12/20/12 Martina Wesley, PharmD [address] [place] [address] Pharmacist Internal Medicine 03/12/22 Refugio Huston MD [address] [place] [address] Nephrology 05/01/24 Chun Álvarez MD [address] [place] [address] Hematology and Oncology 05/01/24 Moses Dumont MD [address] [place] [address] Cardiology 05/01/24 documented as of this encounter
--- OUTSIDE RECORDS SUMMARY | 2024-07-10 10:35 | XMS_ITS | Encounter Summary ---
Author Organization [employer] Address [address] [facility] 7t [place] [address] Care Team Providers Care Casting Operator Helper Name Role Phone Dominique Alcaraz MD Primary Care Provider + [phone] Martina Wesley PharmD Unavailable Refugio Huston MD Unavailable [phone] Chun Álvarez MD Unavailable [phone] Moses Dumont MD Unavailable [phone] Reason for Visit * Reason Comments Med Refill Encounter Details Date Type Department Care Team (Late st Contact Info) Description 05/07/2023 Refill [facility] [address] [place], [place] [phone] Dominique Alcaraz MD [address] [place], [place] [phone] Type 2 diabetes mellitus without complication, 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 adjunct faculty for medical terminology insulin use ([facility]) Social History Tobacco Use Types [...] Description 07/10/2024 2:00 PM EDT Office Visit [facility] [address] [place] [address] Simran Crooks [address] [place] [address] 07/25/2024 10:00 AM EDT Medication Management [facility] [address] [place] [address] Martina Wesley PharmD [address] [place] [address] 10/18/2024 2:15 PM EDT Office Visit [facility] [address] [place] [address] Dominique Alcaraz MD [address] [place] [address] 11/07/2024 1:00 PM EDT Office Visit [facility] [address] [place] [address] Simran Crooks [address] [place] [address] [phone] documented as of this encounter Goals Goal Patient Goal Type Associated Problems Recent Progress Patient-Stated? Author Blood Pressure < 140/90 Blood Pressure 134/78(2024 1:21 PM EDT) No Martina Tiwari PharmD Hemoglobin A1c < 7 Result Component 6.8( 10:04 AM EST) No Martina Tiwari PharmD documented as of this encounter Visit Diagnoses Diagnosis Type 2 diabetes mellitus without complication, 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 alf insulin use ([facility]) documented in this encounter Additional Health Concerns Assessment Noted Time PHQ-9 Depression Total Score: 0 07/09/19 3:56 PM EDT documented as of this encounter Care Teams Casting Operator Helper Relationship Specialty Start Date End Date Dominique Alcaraz MD [address] [place] [address] PCP - General Family Medicine 12/20/12 Martina Wesley PharmD [address] [place] [address] Pharmacist Internal Medicine 03/12/22 Refugio Huston MD [address] [place] [address] Nephrology 05/01/24 Chun Álvarez MD [address] [place] [address] Hematology and Oncology 05/01/24 Moses Dumont MD [address] [place] [address] Cardiology 05/01/24 documented as of this encounter
--- OUTSIDE RECORDS SUMMARY | 2024-07-10 10:35 | XMS_ITS | Encounter Summary ---
Author Organization [employer] Address [address] [facility] 7t [place] [address] Care Team Providers Care Float Tender Name Role Phone Dominique Alcaraz MD Primary Care Provider + [phone] Martina Wesley PharmD Unavailable Refugio Huston MD Unavailable [phone] Chun Álvarez MD Unavailable [phone] Moses Dumont MD Unavailable [phone] Reason for Visit * Reason Onset Date Comments Pre op 09/23/2023 Encounter Details Date Type Department Care Team (Late st Contact Info) Description 09/23/2023 Telephone [facility] [address] [place], [place] [phone] Dominique Alcaraz MD [address] [place], [place] [phone] Pre op Social History Tobacco Use Types Packs/Day Years Used Date Smoking Tobacco: Never Smokeless Tobacco: Never Depression Answer Date Recorded Patient Health Questionnaire-9 Score 0 07/08/2022 Housing Stability Answer Date Recorded What is your housing situation today? I have jasekathe li 12/17/[address] you [...] No Surgeon's name: mercedes mohan Facility name: [address] [address] Surgeon's office number: [phone] Surgeon's office fax number: [phone] Contact name (person you spoke with): [place] Last office note from surgeon requested: No * Telephone Encounter - Bharti Fregoso - 09/23/2023 12:23 PM EDT Date of Surgery: right eye 11/15/23 and left eye 11/28 Surgical procedure being done: cataract surgery both eyes Type of anesthesia: local anesthesia Lab needed: No EKG: No Surgeon's name: mercedes mohan Facility name: [address], [place] [address] Surgeon's office number: [phone] Surgeon's office fax number: [phone] Contact name (person you spoke with): [place] Last office note from surgeon requested: No documented in this encounter Plan of Treatment Upcoming Encounters Date Type Department Care Team ([facility] st Contact Info) Description 07/10/2024 2:00 PM EDT Office Visit [facility] [address] [place] [address] Simran Crooks [address] [place] [address] 07/25/2024 10:00 AM EDT Medication Management [facility] [address] [place] [address] Martina Wesley, PharmD [address] [place] [address] 10/18/2024 2:15 PM EDT Office Visit [address] [address] Dominique Alcaraz MD [address] [place] [address] 11/07/2024 1:00 PM EDT Office Visit [facility] [address] [place] [address] Simran Crooks [address] [place] [address] documented as of this encounter Goals Goal Patient Goal Type Associated Problems Recent Progress Patient-Stated? Author Blood Pressure < 140/90 Blood Pressure 134/78(2024 1:21 PM EDT) No Piers-Gambl marj, Martina, PharmD Hemoglobin A1c < 7 Result Component 6.8( 10:04 AM EST) No Piers-Gambl eMaria Isabelsa, PharmD documented as of this encounter Visit Diagnoses Not on filedocumented in this encounter Additional Health Concerns Assessment Noted Time PHQ-9 Depression Total Score: 0 07/09/19 23 3:56 PM EDT documented as of this encounter Care Teams Float Tender Relationship Specialty Start Date End Date Dominique Alcaraz MD [address] [place] [address] PCP - General Family Medicine 12/20/12 Martina Wesley PharmD [address] [place] [address] Pharmacist Internal Medicine 03/12/22 Refugio Huston MD [address] [place] [phone] Nephrology 05/01/24 Chun Álvarez MD [address] [place] [address] Hematology and Oncology 05/01/24 Mosse Dumont MD [address] [place] [address] Cardiology 05/01/24 documented as of this encounter
--- OUTSIDE RECORDS SUMMARY | 2024-07-10 10:35 | XMS_ITS | Clinical Summary ---
Author Organization [facility] [employer] Address [address] [facility] [address] [place] [address] Care Team Providers Care Street Contractor Name Role Phone Dominique Alcaraz MD Primary Care Provider + [phone] Martina Wesley PharmD Unavailable Refugio Huston MD Unavailable [phone] Chun Álvarez MD Unavailable [phone] Moses Dumont MD Unavailable [phone] Allergies Active Allergy Reactions Criticality Noted [...] 2 diabetes mellitus without complication, 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 buttermaker continuous churn insulin use ([facility]) TAKE 1 TABLET BY MOUTH ONCE DAILY 30 tablet 11 05/07/19 24 Active glucose blood (FREESTYLE LITE) test stripIndications :Type 2 diabetes mellitus with chronic kidney disease, without long-term current use of insulin, unspecified CKD stage ([facility]) TEST BLOOD SUGAR TWICE DAILY 100 [...] of aortic valve repair,Paroxysma l atrial fibrillation ([facility]/HCC) TAKE DIRECTED BY COUMADIN CLINIC 30 tablet [...] original. Enrolled in [facility] DM and [facility] HTN clinic with Martina Wesley, BetsyD, ZHEN [facility] Contract Post Office Clerk: Jaci Grounds Manager Agency: [employer] [facility] Problem Noted Date Diagnosed Date [...] Cano last done 06/18/2022 -dental home is [facility] -Health care proxy 11/03/23 Assessment & Plan (11/03/2023 9:32 AM EDT): -next physical exam due after 11/05/2023 -eye care facilitated by Dr. Cano last done 06/18/2022 -dental home is [facility] -Health care proxy 11/03/23 Assessment & Plan (11/04/2022 9:18 AM EDT): -next physical exam due after 11/05/2023 -eye care facilitated by Dr. Cano last done 05/2022 -dental home is [facility] Low back pain without sciatica 11/04/2022 Overview (11/04/2022): PT referral done 11/04/2022. Assessment & Plan (11/04/2022 9:23 AM EDT): PT referral done 11/04/2022. Pre-op evaluation 08/05/2022 Overview (11/03/2023): For cataract surgery at [facility] with Dr. Gusman. Pt with mechanical [...] surgery on 11/15/23. After this appointment the administrative assistant will be able to determine what medications should or can be held. Assessment & Plan (11/03/2023 9:26 AM EDT): For cataract surgery at [facility] with Dr. Gusman. Pt with mechanical [...] was treated medically as if she was post-KS. Pt was started on both Aspirin and Lipitor. No longer on Plavix. She was on on Digoxin 250 mcg but this was DISCONTINUED in Dec 2012 due to sinus pauses noted at cardiac rehab and her Metoprolol was increased to 25 mg po TID, she is now on aspirin and Coumadin. Last note from cardiac surgery is dated 12/08/12. Her administrative assistant is Dr. Moses Dumont, last visit 05/2018 -PT NEEDS ANTIBIOTIC PROPHLAXIS PRIOR TO DENTAL WORK - RX AMOXICILLIN 2G PRIOR TO DENTAL WORK -Seen by Dr. Dumont 12/2022 recommending follow up 1 year -note from Patient followed at [facility] with Dr. John [...] was treated medically as if she was post-KS. Pt was started on both Aspirin and Lipitor. No longer on Plavix. She was on on Digoxin 250 mcg but this was DISCONTINUED in Dec 2012 due to sinus pauses noted at cardiac rehab and her Metoprolol was increased to 25 mg po TID, she is now on aspirin and Coumadin. Last note from cardiac surgery is dated 12/08/12. Her administrative assistant is Dr. Moses Dumont, last visit 05/2018 [...] was treated medically as if she was post-KS. Pt was started on both Aspirin and Lipitor. No longer on Plavix. She was on on Digoxin 250 mcg but this was DISCONTINUED in Dec 2012 due to sinus pauses noted at cardiac rehab and her Metoprolol was increased to 25 mg po TID, she is now on aspirin and Coumadin. Last note from cardiac surgery is dated 12/08/12. Her administrative assistant is Dr. 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 Last note dated 10/03/2013. Follow up annually for mammo and office visit. - [facility] no longer accepting pt's insurance so now followed at [facility] q 6 months [...] in 2005 - Previously followed by the [facility]. Last note dated 10/03/2013. Follow up annually for mammo and office visit. - [facility] no longer accepting pt's insurance so now followed at [facility] q [address] Pryor. -Last seen by oncology on 08/25/2019. 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 Last note dated 10/03/2013. Follow up annually for mammo and office visit. - [facility] no longer accepting pt's insurance so now followed at [facility] q [address] Pryor. -Last seen by oncology on 08/25/2019. -Recent Mammo 04/11/21 BI-RADS 2 benign Atrial fibrillation 03/26/2013 Overview (12/22/2023): - continue choric anticoagulation INR goal 2.5-3.5 due to heart valve repair -note from Patient followed at [place] [facility] with Dr. John Dumont DO. [...] 80mg daily -ordered lipid panel 11/03/23 -offered [place]-3s, bu wants to trial lifestyle changes. Will [...] 80mg daily -ordered lipid panel 11/03/23 -offered [place]-[facility]s, bu wants to trial lifestyle changes. Will [...] Encounters Date Type Department Care Team Description 07/10/2024 Orders Only GENERIC EXTERNAL DATA DEPARTMENT Provider, Generic External Data 07/06/[address] [address] Dominique Alcaraz MD OUTREACH 06/30/2024 Orders Only GENERIC EXTERNAL DATA DEPARTMENT Provider, Generic External Data 06/27/2024 Refill [facility] [address] [place] [phone] Dominique Alcaraz MD 06/06/2024 3:00 PM EDT Office Visit [facility] [address] [place] [address] [phone] Brendan Walsh DMD 06/05/2024 Orders Only GENERIC EXTERNAL DATA DEPARTMENT Provider, Generic External Data 05/19/2024 Orders Only GENERIC EXTERNAL DATA DEPARTMENT Provider, Generic External Data 05/04/[address] [address] Sunitah Singleton [place] 05/02/2024 1:00 PM EST Office Visit [facility] [address] [place] [phone] Simran Crooks Periodontal disease (Primary Dx) 05/01/2024 Orders Only [facility] [address] [place] [phone] Dominique Alcaraz MD Type 2 diabetes mellitus with chronic kidney disease, without long-term current use of insulin, unspecified CKD stage (CMS/HCC) (Primary Dx); Atypical ductal hyperplasia of breast 04/27/2024 Refill [facility] [address] [place] [address] Dominique Alcaraz MD 04/24/2024 Refill [facility] [address] [place] [address] Dominique Alcaraz MD Primary hypertension 04/19/2024 Orders Only GENERIC EXTERNAL DATA DEPARTMENT Provider, Generic External Data 04/18/2024 Refill [facility] [address] [place] [phone] Dominique Alcaraz MD History of aortic valve [...] antigen) 11/17/2011 Sierra SARS-CoV-2 Vaccination 05/15/2020 Novel [id number] 11/19/2015 Pfizer Covid-19 Vaccine 12+ 01/31/2021 Pfizer Covid-19 Vaccine 12+ Bivalent 03/12/2022 Pneumococcal Conjugate PCV 13 01/04/2014 Pneumococcal Conjugate PCV 20 11/04/2022 Pneumococcal Polysaccharide PPSV23 10/11/2006 RSV Bivalent 11/23/2023 TD (adult), 2 Lf tetanus tox oid, preservative free, adsorbed 10/11/2006 Tdap 01/04/2014 Zoster, Recombinant 06/05/2021,,04/03/2021,04/03 Social History Tobacco Use Types Packs/Day Years [...] Description 07/10/2024 2:00 PM EDT Office Visit [facility] [address] [place] [address] [phone] Simran Crooks [address] [place], [place] [phone] 07/25/2024 10:00 AM EDT Medication Management [facility] [address] [place] [address] [phone] Martina Wesley, PharmD [address] [place] [address] 10/18/2024 2:15 PM EDT Office Visit [facility] [address] [place] [address] Dominique Alcaraz MD [address] [place], [place] [phone] 11/07/2024 1:00 PM EDT Office Visit [facility] [address] [place], [place] [phone] Simran Crooks [address] [place], [place] [phone] Health Maintenance Due Date Last Done Comments CT Colonography 1955 FIT DNA/Cologuard 1955 FIT 1955 FOBT 1955 Sigmoidoscopy 1955 Alcohol/Substance Use Screening 1967 Hepatitis C Screening 12/24/1973 COVID-19 Vaccine ( season) 2023 03/12/2022, 01/31/2021, 05/15/2020 DTaP/Tdap/Td Vaccines (2 - Td or Tdap) 01/05/2024 01/04/2014, 10/11/2006 Eye Exam 06/18/2024 06/18/2022 Diabetes: Hemoglobin A1C 07/23/202401/23/2 024, 11/03/2023, 06/09/2023, Additional history exists Lipid Panel 07/29/2024 07/30/2023, 04/0 08/2022, 02/18/2022, Additional history exists Depression Screening 11/02/2024 11/03/2023, 11/03/19 24 Diabetes: Foot Exam 11/02/2024 11/03/2023, 11/03/2023, 11/03/2023, Additional history exists SDOH Screening 11/02/2024 11/03/2023 Dental Oral Exam 11/03/2024 05/02/2024, 10/2023, 09/30/2018, Additional history exists Dental Prophylaxis 11/03/2024 05/02/2024, 0 10/26/2023, 03/09/2023 Dental X-Ray: Bitewings 05/03/2025 05/03/19, 03/09/2023, 09/30/2018, Additional history exists Tobacco Screening 06/06/2025 06/06/2024 Dental X-Ray: Full Mouth 03/10/2026 024, 09/30/2018, 05/17/2014 Mammogram 05/04/2026 05/04/2024, 04/02, 04/15/2023, Additional history exists Colonoscopy 09/03/2028 09/03/2018 Colorectal Cancer Screening 09/03/2028 Zoster Vaccines Completed 06/05/2021, 0408/2021, 04/03/2021, Additional history exists Pneumococcal Vaccine: 50+ [...] 134/78(2024 1:21 PM EDT) No Martina Tiwari, Irma Hemoglobin A1c < 7 Result Component 6.8( 10:04 AM EST) Martina Barros PharmD Procedures Procedure Name Priority Date/Time Associated Diagnosis Comments PROTHROMBIN TIME WHOLE BLD POC Routine 07/10/2024 10:19 AM EDT ~PT, ~INR - ANTI COAG CLINIC Routine 07/10/2024 10:19 AM EDT PROTHROMBIN TIME WHOLE BLD POC Routine 06/30/2024 1:05 PM EDT ~PT, ~INR - ANTI COAG CLINIC Routine 06/30/2024 1:05 PM EDT CASE PRESENTATION, DETAILED AND EXTENSIVE TREATMENT PLANNING [...] WHOLE BLD POC (07/10/2024 10:19 AM EDT) Only the most recent of6 resultswithin the time period is included. Protime 42.0(H) 11.1 - 13.5 sec [facility] 07/10/2024 10:1 9 AM EDT 07/10/2024 10:28 AM EDT us Generic External Data Provider LAB BLOOD ORDERAB LES Final Result [facility] [address] [place] [address] [phone] * (ABNORMAL) ~PT, ~INR - ANTI COAG CLINIC (07/10/2024 10:19 AM EDT) Only the most recent of6 resultswithin the time period is included. Prothrombin Time INR 3.5(H) 0.9 - 1.1 [facility] Comment:METER #: [id number] TERNATIONAL NORMALIZED RATIO (INR) REFERENCE RANGES Reference [...] ORDERAB LES Final Result Performing Organization Address [facility] Co de Phone Number [facility] [address] [place] [phone] * Mammography (05/04/2024 11:40 AM EST) HM Mammogram BIRADS 2 Normal, Abnormal, BIRADS 1 , BIRADS 2 Comment:follow up one year Anatomical Region Laterality Modality Other us Historical Provider HEALTH MAINTENANCE Final Result * BI Mammogram Screening Tomosynthesis Bilateral (04/20/2024 1:15 PM EST) Anatomical Region Laterality Modality Breast Bilateral Mammography 04/20/2024 1:15 PM EST Narrative 04/28/2024 3:03 PM EST ? [facility] ? [address] ?[place] [address] ? Mammography Report ? Signed ? Patient: Mart,Dyan L ?MR#: [id number] ?? [id number] ? : 1955 ?Acct:[id number] ? Age/Sex: 68 / F ?ADM Date: 04/20/24 ? Loc: HO.MAMMO ? Attending Dr: Dominique Alcaraz MD ? Ordering Physician: Dominique Alcaraz MD ?Results: 2B ?? enign Findings ? Date of Service: 04/20/24 ?Follow Up: 1 Year From Orig ?? inal Mammogram ? Procedure(s): MM tomosynthesis screening BI ?? Accession Number(s): [id number] ? cc: Dominique Alcaraz MD ? EXAMINATION: [...] DD/ 1315 ? TD/TT: 04/20/24 1351 ? Mail Room: ? Procedure Note Ivan, Image - 04/28/2024 [facility] [address] [place] [address] Mammography Report Signed Patient: Dyan Mart LMR#: [id number] : 6Acct:[id number] Age/Sex: 68 / FADM Date: 04/20/24 Loc: SARAH Attending Dr: Dominique Alcaraz MD Ordering Physician: Dominique Alcaraz MDResults: 2B enign Findings Date of Service: 04/20/24Follow Up: 1 Year From Orig inal Mammogram Procedure(s): MM tomosynthesis screening BI Accession Number(s): [id number] cc: Dominique Alcaraz MD EXAMINATION: MM SCREENING [...] 04/28/24 1500 DD/ 1315 TD/TT: 04/20/24 1351 Mail Room: Dominique Alcaraz MD IMG BI PROCEDURES Final Re sult * (ABNORMAL) POCT HGB A1C (01/24/2024 10:04 AM EST) Hemoglobin A1C 6.8(A) 4.0 - 6.0 % QC Media Lot # [id number] Lot# Expiration Date [id number] Blood 01/24/2024 10:0 4 AM EST Dominique Alcaraz MD POINT OF CARE TEST ENTER/E DIT ORDERABLES Final Result * (ABNORMAL) Lipid Panel, Standard (07/30/2023 8:15 AM EDT) Triglycerides 239(H) <150 mg/dL [facility] Comment:Desirable Triglyceri de: less than 150 mg/dLBorderline High Triglyceride 150-199 mg/dLHigh Triglyceride: 200-499 mg/dLVery High Triglyceride: greater than or equal to 5OO mg/dL Cholesterol 154 <200 mg/dL [facility] Comment:Desirable Cholestero l: less than 200 mg/dLBorderline High Cholesterol: 200-239 mg/dLHigh Cholesterol: greater than 239 mg/dL LDL Cholesterol Calculated 70 <100 mg/dL [facility] Comment:Desirable LDL: less than 100 mg/dLNear Optimal/Above Optimal LDL: 110- 129 mg/dLBorderline High LDL: 130-159 mg/dLHigh LDL: 160-189 mg/dLVery High LDL: greater than or equal to 190 mg/dL HDL Cholesterol 37(L) >40 mg/dL [facility] Comment:Desirable HDL: great er than 40 mg/dL Note: This HDL assay may give artificially low results in patients with liver disease. 07/30/2023 8:15 AM EDT 07/30/2023 11:12 AM EDT Dominique Alcaraz MD LAB BLOOD ORDERABLES Final Result [facility] [address] [place], [place] [phone] * Diabetes Eye Exam (06/18/2022) [facility] Signature Eye Exam Normal Normal Historical Provider HEALTH MAINTENANCE Final Result * Colonoscopy (09/03/2018 12:11 PM EDT) Historical Provider HEALTH MAINTENANCE Final Result from Last 3 Months or Most Recently Relevant to Health Maintenance Insurance [facility] RETIREMENT OPTIONS (O D-SNP) ADDIS DON [id number] DENTAL - [facility] Advance Directives Documents on File Type Date Recorded Patient [employer] Hand Expl anation Advance Directives and Living Will 11/04/2023 11:37 AM Health Care Proxy Care Teams Street Contractor Relationship Specialty Start Date End Date Kieran, MD Dominique [address] [place] [address] PCP - General Family Medicine 12/20/12 Martina Wesley, BetsyD [address] [place] [address] Pharmacist Internal Medicine 03/12/22 [place] [address] [place] [phone] Nephrology 05/01/24 Chun Álvarez MD [address] [place] [phone] Hematology and Oncology 05/01/24 Moses Dumont MD [address] [place] [address] Cardiology 05/01/24
== END 2024-07-10 10:32 | disposition home or self-care (01) ==
LOC: HO.ACS 10:08
PROVIDERS: PCP Family Medicine; Visit Provider Internal Medicine Medical Oncology
DX: Z79.01 Long term (current) use of anticoagulants (principal)

== ENCOUNTER → 2024-07-10 10:08 | Outpatient (BNVA) | payer OTHER, SELFPAY | PROVIDERS: PCP Family Medicine; Visit Provider Internal Medicine Medical Oncology | DX: Z95.2 Presence of prosthetic heart valve (principal); Z79.01 Long term (current) use of anticoagulants; Z51.81 Encounter for therapeutic drug level monitoring | CPT/HCPCS: 85610; 99211 ==

== ENCOUNTER 2024-07-20 11:17 | Outpatient (AMB) | payer OTHER, SELFPAY ==
[2024-07-20 11:37] LABS: Prothrombin Time Whole Bld POC 29.7 sec (11.1-13.5); ~PT, ~INR - Anti Coag Clinic 2.5 (0.9-1.1)
--- NOTE | 2024-07-20 11:52 | MHC.OFFVISCO ---
Intake Intake Visit Reasons: Anticoagulation Allergies lisinopril [LISINOPRIL] Allergy (Intermediate, Verified 07/20/24 11:30) rash/cough, palpitations Medication List - Last Reconciled 07/20/24 by Kianna Aviles RN amlodipine 5 mg PO DAILY amoxicillin 1,000 mg PO BID aspirin 81 mg PO DAILY atorvastatin 80 mg PO BEDTIME blood sugar diagnostic (FreeStyle Lite Strips) As directed blood-glucose meter (FreeStyle White Lite kit) As directed calcium carbonate (Calcium Antacid) mg PO cholecalciferol (vitamin D3) (Vitamin D3) 25 mcg PO DAILY cyanocobalamin (vitamin B-12) (Vitamin B-12) 500 mcg PO DAILY empagliflozin (Jardiance) 25 mg PO DAILY ferrous sulfate 325 mg PO DAILY lancets (TRUEplus Lancets) As directed metformin ER 500 mg PO QPM metoprolol tartrate 1 tab PO BID telmisartan (Micardis) 80 mg PO DAILY warfarin 5 mg See Protocol PO DIRECTED warfarin 2.5 mg See Protocol PO DIRECTED Nursing Note INR: 2.5 in therapeutic range Medications and supplements reviewed Pt to have dental cleaning today and take an antbx- INR checked prior per dentist request Denies any signs and symptoms of bleeding or bruising or clotting. Bleeding, bruising, clotting discussed Nutritional guidance given Dose: keep same dose however if has a little bleeding to take 2.5mg today instead of 5mg - and take 5mg tomorrow if no bleeding F/U INR: 07/27/24- has family even 07/27/24 Patient verbalizes understanding of instructions given Anti-Coag Initial Assessment Social Hx Patient Tobacco Use Status: Never used Tobacco alcohol intake: former Alcohol intake frequency: does not drink Coding Level of Care Code Est Patient Level 1 Diagnoses Current use of anticoagulant therapy Z79.01 Results AMB INR Fingerstick AMB INR Fingerstick 2.5 Last Edit by Kianna Aviles RN on 07/20/24 11:39 Assessment & Plan Assessment & Plan (1) Current use of anticoagulant therapy: Code(s): Z79.01 - penitentiary (current) 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
--- OUTSIDE RECORDS SUMMARY | 2024-07-20 11:55 | XMS_ITS | Clinical Summary ---
Author Organization [employer] Address [address] [facility] 7t [place] [address] Care Team Providers Care Assembler Installer General Name Role Phone Dominique Alcaraz MD Primary Care Provider [phone]- [phone] Martina Wesley PharmD Unavailable [phone] Refugio Huston MD Unavailable [phone] Chun Álvarez MD Unavailable [phone] Moses Dumont MD Unavailable [phone] Allergies Active Allergy Reactions Criticality Noted [...] 2 diabetes mellitus without complication, 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 terminal operations supervisor insulin use ([facility]) TAKE 1 TABLET BY MOUTH ONCE DAILY 30 tablet 11 05/07/19 24 Active glucose blood (FREESTYLE LITE) test stripIndications :Type 2 diabetes mellitus with chronic kidney disease, without long-term current use of insulin, unspecified CKD stage ([facility]) TEST BLOOD SUGAR TWICE DAILY 100 each [...] 4 capsule 2 04/27/19 25 025 Discontinued Active Problems Patient Care Coordination No te Formatting of this note migh t be different from the original. Enrolled in [employer] and [facility] HTN clinic with Betsy JamesonD, [facility] [place] Ice Cream Mixer: Jaci Custody Assistant Agency: [id number] Problem Noted Date Diagnosed Date Cardiac risk [...] Cano last done 06/18/2022 -dental home is [facility] -Health care proxy 11/03/23 Assessment & Plan (11/03/2023 9:32 AM EDT): -next physical exam due after 11/05/2023 -eye care facilitated by Dr. Cano last done 06/18/2022 -dental home [facility] care proxy 11/03/23 Assessment & Plan (11/04/2022 9:18 AM EDT): -next physical exam due after 11/05/2023 -eye care facilitated by Dr. Cano last done 05/2022 -dental home is [facility] Low back pain without sciatica 11/04/2022 Overview (11/04/2022): PT referral done 11/04/2022. Assessment & Plan (11/04/2022 9:23 AM EDT): PT referral done 11/04/2022. Pre-op evaluation 08/05/2022 Overview (11/03/2023): For cataract surgery at [facility] with Dr. Gusman. Pt with mechanical valve on anticoagulation. Recommend continue anticoagulation. Will refer to cardiology to evaluate, will likely continue Coumadin but will ask about ASA. Cataract extraction is one of the only status low risk procedures where anticoagulation is not interrupted. Addendum: TC placed to [facility] to inquire on PCP question regarding if pt should hold aspirin prior to upcoming cataract surgery on 11/15/23. Per the cardiology office the pt has not been seen since November of 2022. The office is going to call the pt to try and schedule an appt before upcoming surgery on 11/15/23. After this appointment the water and sewer systems superintendent will be able to determine what medications should or can be held. Assessment & Plan (11/03/2023 9:26 AM EDT): For cataract surgery at [facility] with Dr. Gusman. Pt with mechanical [...] was treated medically as if she was post-UT. Pt was started on both Aspirin and Lipitor. No longer on Plavix. She was on on Digoxin 250 mcg but this was DISCONTINUED in Dec 2012 due to sinus pauses noted at cardiac rehab and her Metoprolol was increased to 25 mg po TID, she is now on aspirin and Coumadin. Last note from cardiac surgery is dated 12/08/12. Her water and sewer systems superintendent is Dr. Moses Dumont, last visit 05/2018 -PT NEEDS ANTIBIOTIC PROPHLAXIS PRIOR TO DENTAL WORK - RX AMOXICILLIN 2G PRIOR TO DENTAL WORK -Seen by Dr. Dumont 12/2022 recommending follow up 1 year -note from Patient followed at [facility] with Dr. John Dumont DO. 12/20/23 reveiwed [...] was treated medically as if she was post-UT. Pt was started on both Aspirin and Lipitor. No longer on Plavix. She was on on Digoxin 250 mcg but this was DISCONTINUED in Dec 2012 due to sinus pauses noted at cardiac rehab and her Metoprolol was increased to 25 mg po TID, she is now on aspirin and Coumadin. Last note from cardiac surgery is dated 12/08/12. Her water and sewer systems superintendent is Dr. Moses Dumont, last visit 05/2018 [...] was treated medically as if she was post-UT. Pt was started on both Aspirin and Lipitor. No longer on Plavix. She was on on Digoxin 250 mcg but this was DISCONTINUED in Dec 2012 due to sinus pauses noted at cardiac rehab and her Metoprolol was increased to 25 mg po TID, she is now on aspirin and Coumadin. Last note from cardiac surgery is dated 12/08/12. Her water and sewer systems superintendent is Dr. 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 Last note dated 10/03/2013. Follow up annually for mammo and office visit. - [facility] no longer accepting pt's insurance so now followed at [facility] [place] [address] Pryor. -Last [...] in 2005 - Previously followed by the [facility]. Last note dated 10/03/2013. Follow up annually for mammo and office visit. - [facility] no longer accepting pt's insurance so now followed [place] [facility] [place] [address] Pryor. -Last seen by oncology on 08/25/2019. 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 Last note dated 10/03/2013. Follow up annually for mammo and office visit. - [facility] no longer accepting pt's insurance so now followed at [facility] [place] [address] Pryor. -Last seen by oncology on 08/25/2019. -Recent Mammo 04/11/21 BI-RADS 2 benign Atrial fibrillation 03/26/2013 Overview (12/22/2023): - continue choric anticoagulation INR goal 2.5-3.5 due to heart valve repair -note from Patient followed [facility] with Dr. John Dumont DO. [...] 80mg daily -ordered lipid panel 11/03/23 -offered [place]-3s, bu wants to trial lifestyle changes. Will [...] 80mg daily -ordered lipid panel 11/03/23 -offered [place]-3s, bu wants to trial lifestyle changes. Will [...] Encounters Date Type Department Care Team Description 07/20/2024 Orders Only GENERIC EXTERNAL DATA DEPARTMENT Provider, Generic External Data 07/17/2024 Telephone [facility] [address] [place] [address] Dominique Alcaraz MD 07/10/2024 2:00 PM EDT Office Visit [facility] [address] [place] [address] Simran Crooks 07/10/2024 Orders Only GENERIC EXTERNAL DATA DEPARTMENT Provider, Generic External Data 07/06/2024 Telephone [facility] [address] [place] [address] Dominique Alcaraz MD OUTREACH 06/30/2024 Orders Only GENERIC EXTERNAL DATA DEPARTMENT Provider, Generic External Data 06/27/2024 Refill [facility] [address] [place] [address] Dominique Alcaraz MD 06/06/2024 3:00 PM EDT Office Visit [address] [address] Brendan Walsh DMD 06/05/2024 Orders Only GENERIC EXTERNAL DATA DEPARTMENT Provider, Generic External Data 05/19/2024 Orders Only GENERIC EXTERNAL DATA DEPARTMENT Provider, Generic External Data 05/04/2024 Abstract [facility] [address] [place] [address] Sunitha Singleton MA 05/02/2024 1:00 PM EST Office Visit [address] [address] Simran Crooks Periodontal disease (Primary Dx) 05/01/2024 Orders Only [facility] [address] [place] [address] Dominique Alcaraz MD Type 2 diabetes mellitus with chronic kidney disease, without long-term current use of insulin, unspecified CKD stage ([facility]) (Primary Dx); Atypical ductal hyperplasia of breast 04/27/2024 Refill [facility] [address] [place] [address] Dominique Alcaraz MD 04/24/2024 Refill [facility] [address] [place] [address] Dominique Alcaraz MD Primary hypertension from Last 3 Months Immunizations Immunization Administration Dates Next Due Hep B, adult [...] antigen) 11/17/2011 [facility] SARS-CoV-2 Vaccination 05/15/2020 Novel [id number] 11/19/2015 Pfizer Covid-19 Vaccine 12+ 01/31/2021 Pfizer [...] Sign Reading Time Taken Comments Blood Pressure 110/60 07/10/2024 2:07 PM EDT Pulse 81 07/10/2024 2:07 PM EDT Temperature 36.9 ??C (98.4 ??F) [...] Care Team (Late st Contact Info) Description 07/20/2024 2:00 PM EDT Office Visit [facility] [address] [place], [place] [phone] Simran Crooks [address] [place], [place] [phone] 07/31/2024 11:30 AM EDT Medication Management [facility] [address] [place] [address] Martina Wesley, PharmD [address] [place], [place] [phone] 10/18/2024 2:15 PM EDT Office Visit [facility] [address] [place] [address] Dominique Alcaraz MD [address] [place], [place] [phone] 11/07/2024 1:00 PM EDT Office Visit [facility] [address] [place], [place] [phone] Simran Crooks [address] [place], [place] [phone] Health Maintenance Due Date Last Done Comments [...] Cancer Screening 09/03/2028 Zoster Vaccines Completed 06/05/2021, 08/2021, 04/03/2021, Additional history exists Pneumococcal Vaccine: [...] patient's age to complete this topic Meningococcal B Vaccine Aged Out No l onger eligible based on patient's age to complete [...] Author Blood Pressure < 140/90 Blood Pressure 110/60(2024 2:07 PM EDT) No Martina Tiwari PharmD Hemoglobin A1c < 7 Result Component 6.8( 10:04 AM EST) No Martina Tiwari PharmD Procedures Procedure Name Priority Date/Time Associated Diagnosis Comments PROTHROMBIN TIME WHOLE BLD POC Routine 07/20/2024 11:35 AM EDT ~PT, ~INR - ANTI COAG CLINIC Routine 07/20/2024 11:35 AM EDT CASE PRESENTATION, DETAILED AND EXTENSIVE TREATMENT PLANNING Routine 07/10/2024 2:00 PM EDT LR PERIODONTAL SCALING AND ROOT PLANING - 4 OR MORE TEETH PER QUADRANT Routine 07/10/2024 2:00 PM EDT PROTHROMBIN TIME WHOLE BLD POC Routine 07/10/2024 [...] use of insulin, unspecified CKD stage (CMS/HCC) POCT GLYCATED HEMOGLOBIN, TOTAL Routine 01/24/2024 10:04 [...] * (ABNORMAL) PROTHROMBIN TIME WHOLE BLD POC (07/20/2024 11:35 AM EDT) Only the most recent of6 resultswithin the time period is included. Protime 29.7(H) 11.1 - 13.5 sec [facility] 07/20/2024 11:3 5 AM EDT 07/20/2024 11:36 AM EDT us Generic External Data Provider LAB BLOOD ORDERAB LES Final Result Performing Organization Address City/[facility]/ZIP Co de Phone Number [facility] [address] [place] [address] [phone] * (ABNORMAL) ~PT, ~INR - ANTI COAG CLINIC (07/20/2024 11:35 AM EDT) Only the most recent of6 resultswithin the time period is included. Prothrombin Time INR 2.5(H) 0.9 - 1.1 [facility] Comment:METER #: [id number] TERNATIONAL NORMALIZED RATIO (INR) REFERENCE RANGES Reference RangeFor patients not on anticoagulant therapy: 0.9 - 1.1INR ranges for oral anticoagulanttherapy:For prevention and treatment of venous thrombosis and pulmonary embolism: 2.0 - 3.0For acute myocardial infarction with aspirin therapy: 2.0 - 3.0For acute myocardial infarction without aspirin therapy: 3.0 - 4.0For patients with mechanical prosthetic heart valves: 2.5 - 3.5 07/20/2024 11:3 5 AM EDT 07/20/2024 11:36 AM EDT us Generic External Data Provider LAB BLOOD ORDERAB LES Final Result Performing Organization Address [facility] Co de Phone Number [facility] [address] [place] [phone] * Mammography (05/04/2024 11:40 AM EST) HM Mammogram BIRADS 2 Normal, Abnormal, BIRADS 1 , BIRADS 2 Comment:follow up one year Anatomical Region Laterality Modality Other Historical Provider MD HEALTH MAINTENANCE Final Result * (ABNORMAL) POCT HGB A1C (01/24/2024 10:04 AM EST) Hemoglobin A1C 6.8(A) 4.0 - 6.0 % QC Media Lot # [id number] Lot# Expiration Date [id number] Blood 01/24/2024 10:0 4 AM EST Dominique Alcaraz MD POINT OF CARE TEST ENTER/E DIT ORDERABLES Final Result * (ABNORMAL) Lipid Panel, Standard (07/30/2023 8:15 AM EDT) Triglycerides 239(H) <150 mg/dL [facility] Comment:Desirable Triglyceri de: less than 150 mg/dLBorderline High Triglyceride 150-199 mg/dLHigh Triglyceride: 200-499 mg/dLVery High Triglyceride: greater than or equal to 5OO mg/dL Cholesterol 154 <200 mg/dL [facility] Comment:Desirable Cholestero l: less than 200 mg/dLBorderline High Cholesterol: 200-239 mg/dLHigh Cholesterol: greater than 239 mg/dL LDL Cholesterol Calculated 70 <100 mg/dL [facility] Comment:Desirable LDL: less than 100 mg/dLNear Optimal/Above Optimal LDL: 110- 129 mg/dLBorderline High LDL: 130-159 mg/dLHigh LDL: 160-189 mg/dLVery High LDL: greater than or equal to 190 mg/dL HDL Cholesterol 37(L) >40 mg/dL [facility] Comment:Desirable HDL: great er than 40 mg/dL Note: This HDL assay may give artificially low results in patients with liver disease. 07/30/2023 8:15 AM EDT 07/30/2023 11:12 AM EDT Dominique Alcaraz MD LAB BLOOD ORDERABLES Final Result Performing Organization Address City/State/[facility] Co de Phone Number [facility] [address] [place] [phone] * Diabetes Eye Exam (06/18/2022) Eye Exam Normal Normal Christiano Morley MD HEALTH MAINTENANCE Final Result * Colonoscopy (09/03/2018 12:11 PM EDT) Christiano Morley MD HEALTH MAINTENANCE Final Result from Last 3 Months or Most Recently Relevant to Health Maintenance Insurance [facility] LONG TERM OPTIONS (HMO D-SNP) [facility] Advance Directives Documents on File Type Date Recorded Patient Account Executive [employer] Expl anation Advance Directives and Living Will 11/04/2023 11:37 AM Health Care Proxy Care Teams Assembler Installer General Relationship Specialty Start Date End Date Dominique Alcaraz MD [address] [place] [address] PCP - General Family Medicine 12/20/12 Martina Wesley, BetsyD [address] [place] [address] Pharmacist Internal Medicine 03/12/22 Refugio Huston MD [address] [place] [phone] Nephrology 05/01/24 Chun Álvarez MD [address] [place] [address] Hematology and Oncology 05/01/24 Moses Dumont MD [address] [place] [address] Cardiology 05/01/24
--- OUTSIDE RECORDS SUMMARY | 2024-07-20 11:55 | XMS_ITS | Encounter Summary ---
Author Organization [employer] Address [address] 7t [place] [address] Care Team Providers Care Business Office Associate Name Role Phone Dominique Alcaraz MD Primary Care Provider Martina Wesley PharmD Unavailable Refugio Huston MD Unavailable Chun Álvarez MD Unavailable [phone] Moses Dumont MD Unavailable [phone] Encounter Details Date Type Department Care Team (Late st Contact Info) Description 05/01/2024 Orders Only [facility] [address] [place], [place] [phone] Dominique Alcaraz MD [address] [place], [place] [phone] Type 2 diabetes mellitus with chronic kidney [...] Description 07/20/2024 2:00 PM EDT Office Visit [facility] [address] [place] [address] Simran Crooks [address] [place] [address] 07/31/2024 11:30 AM EDT Medication Management [facility] [address] [place] [address] Martina Wesley, PharmD [address] [place] [address] 10/18/2024 2:15 PM EDT Office Visit [facility] [address] [place] [address] Dominique Alcaraz MD [address] [place] [address] [phone] 11/07/2024 1:00 PM EDT Office Visit [facility] [address] [place] [address] Simran Crooks [address] [place], [place] [phone] documented as of this encounter Goals Goal Patient Goal Type Associated Problems Recent Progress Patient-Stated? Author Blood Pressure < 140/90 Blood Pressure 110/60(2024 2:07 PM EDT) No Piers-Gambl eMartina, PharmD Hemoglobin A1c < 7 Result Component 6.8( 10:04 AM EST) No Piers-Gambl eMartina, PharmD documented as of this encounter Procedures [...] EST) Protime 27.7(H) 11.1 - 13.5 sec [facility] 05/01/2024 1:32 PM EST 05/01/2024 1:34 PM EST us Generic External Data Provider LAB BLOOD ORDERAB LES Final Result [facility] [address] [place] [address] [phone] * (ABNORMAL) ~PT, ~INR - ANTI COAG CLINIC (05/01/2024 1:32 PM EST) Prothrombin Time INR 2.3(H) 0.9 - 1.1 [facility] Comment:METER #: [id number] TERNATIONAL NORMALIZED RATIO (INR) REFERENCE RANGES Reference [...] Provider LAB BLOOD ORDERAB LES Final Result [facility] [address] [place] [address] [phone] documented in this encounter Visit Diagnoses [...] documented as of this encounter Care Teams Business Office Associate Relationship Specialty Start Date End Date Dominique Alcaraz MD [address] [place] [address] PCP - General Family Medicine 12/20/12 Martina Wesley, PharmD [address] [place] [address] Pharmacist Internal Medicine 03/12/22 Refugio Huston MD [address] [place] [phone] Nephrology 05/01/24 Chun Álvarez MD [address] [place] [address] Hematology and Oncology 05/01/24 Moses Dumont MD [address] [place] [address] Cardiology 05/01/24 documented as of this encounter
--- OUTSIDE RECORDS SUMMARY | 2024-07-20 11:55 | XMS_ITS | Encounter Summary ---
Author Organization [facility] Address [address] [place] [address] Phone Care Team Providers Care Supervisor Drying And Winding Name Role Phone Unavailable Primary Care Provider Unavailabl e Encounter Details Date Type Department Care Team (Late Contact Info) Description 10/27/2023 Documentation Only [facility] [address] [place] [address] Michelle Linares [address] [place] [address] Social History Tobacco Use Types [...] Visit [facility] [address] [place] [address] Refugio Huston MD [address] [place] [address] documented as of this encounter Visit Diagnoses Not on filedocumented in this encounter
--- OUTSIDE RECORDS SUMMARY | 2024-07-20 11:55 | XMS_ITS | Clinical Summary ---
Author Organization [facility] [place], Address [address] [place] [address] [place] [address] Phone Care Team Providers Care District Manager Name Role Phone Unavailable Primary Care [...] Only [facility] [address] [place] [address] Priscilla Buitrago [place] 06/21/2024 Refill [facility] [address] [place] [address] Priscilla Buitrago MA from Last 3 Months [...] Visit [facility] [address] [place] [address] Refugio Huston MD [address] [place] [phone] Health Maintenance Due Date Last Done Comments [...] 01/11/2021, Additional history exists Insurance Medicaid [place] [facility] Care Dual SNP ([id number])
--- OUTSIDE RECORDS SUMMARY | 2024-07-20 11:55 | XMS_ITS | Encounter Summary ---
Author Organization [employer] Address [address] [facility] [address]t [place] [address] Care Team Providers Care Wire Stripper Name Role Phone Dominique Alcaraz MD Primary Care Provider + [phone] Martina Wesley PharmD Unavailable [phone] Refugio Huston MD Unavailable [phone] Chun Álvarez MD Unavailable [phone] Moses Dumont MD Unavailable [phone] Reason for Visit * Reason Comments Med Refill Encounter Details Date Type Department Care Team (Late st Contact Info) Description 05/07/2023 Refill [facility] [address] [place], [place] [phone] Dominique Alcaraz MD [address] [place], [place] [phone] Type 2 diabetes mellitus without complication, 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 fdc insulin use ([facility] Social History Tobacco Use Types Packs/Day Years [...] Description 07/20/2024 2:00 PM EDT Office Visit [facility] [address] [place] [address] Simran Crooks [address] [place] [address] 07/31/2024 11:30 AM EDT Medication Management [facility] [address] [place] [address] Martina Wesley PharmD [address] [place] [address] 10/18/2024 2:15 PM EDT Office Visit [facility] [address] [place] [address] Dominique Alcaraz MD [address] [place] [address] 11/07/2024 1:00 PM EDT Office Visit [facility] [address] [place] [address] Simran Crooks [address] [place] [address] documented as of this encounter Goals Goal Patient Goal Type Associated Problems Recent Progress Patient-Stated? Author Blood Pressure < 140/90 Blood Pressure 110/60(2024 2:07 PM EDT) No Martina Tiwari PharmD Hemoglobin A1c < 7 Result Component 6.8( 10:04 AM EST) No Martina Tiwari PharmD documented as of this encounter Visit Diagnoses Diagnosis Type 2 diabetes mellitus without complication, 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 terminal makeup operator insulin use ([facility]) documented in this encounter Additional Health Concerns Assessment Noted Time PHQ-9 Depression Total Score: 0 07/09/19 3:56 PM EDT documented as of this encounter Care Teams Wire Stripper Relationship Specialty Start Date End Date Dominique Alcaraz MD [address] [place] [address] PCP - General Family Medicine 12/20/12 Martina Wesley PharmD [address] [place] [address] Pharmacist Internal Medicine 03/12/22 Refugio Huston MD [address] [place] [phone] Nephrology 05/01/24 Chun Álvarez MD [address] [place] [address] Hematology and Oncology 05/01/24 Moses Dumont MD [address] [place] [address] Cardiology 05/01/24 documented as of this encounter
--- OUTSIDE RECORDS SUMMARY | 2024-07-20 11:55 | XMS_ITS | Encounter Summary ---
Author Organization [facility] Address [address] [place] [address] Phone Care Team Providers Care Turkish Rubber Name Role Phone Unavailable Primary Care Provider Unavailabl e Encounter Details Date Type Department Care Team (Late Contact Info) Description 06/30/2024 Documentation Only [facility] [address] [place] [address] Priscilla Buitrago [place] [address] [place] [address] Social History Tobacco Use Types [...] Visit [facility] [address] [place] [address] Refugio Huston MD [address] [facility] [place] [address] documented as of this encounter Visit Diagnoses Not on filedocumented in this encounter
--- OUTSIDE RECORDS SUMMARY | 2024-07-20 11:55 | XMS_ITS | Encounter Summary ---
Author Organization [employer] Address [address] [facility] 7t [place] [address] Care Team Providers Care Director Quality Assurance Name Role Phone Doimnique Alcaraz MD Primary Care Provider + [phone] Martina Wesley PharmD Unavailable [phone] Refugio Huston MD Unavailable [phone] Chun Álvarez MD Unavailable [phone] Moses Dumont MD Unavailable [phone] Encounter Details Date Type Department Care Team (Late st Contact Info) Description 12/08/2023 Orders Only [facility] [address] [place] [address] Provider, MD Christiano Social History Tobacco Use [...] Description 07/20/2024 2:00 PM EDT Office Visit [facility] D[facility]AL [address] [place] [address] Simran Crooks [address] [place] [address] 07/31/2024 11:30 AM EDT Medication Management [facility] MEDICINE [address] [place] [address] Martina Wesley PharmD [address] [place] [phone] 10/18/2024 2:15 PM EDT Office Visit [facility] [address] [place] [address] Dominique Alcaraz MD [address] [place] [address] 11/07/2024 1:00 PM EDT Office Visit [facility] [address] [place] [address] Simran Crooks [address] [place] [address] documented as of this encounter Goals Goal [...] documented as of this encounter Care Teams Director Quality Assurance Relationship Specialty Start Date End Date Dominique Alcaraz MD 230 [place] [address] PCP - General Family Medicine 12/20/12 Martina Wesley PharmD 230 [place] [address] Pharmacist Internal Medicine 03/12/22 Refugio Huston MD 2[address] [place] [address] Nephrology 05/01/24 Chun Álvarez MD 575 [place] [address] Hematology and Oncology 05/01/24 Moses Dumont MD 596 [place] [address] Cardiology 05/01/24 documented as of this encounter
--- OUTSIDE RECORDS SUMMARY | 2024-07-20 11:55 | XMS_ITS | Encounter Summary ---
Author Organization [employer] Address [address] [facility] 7t [place] [address] Care Team Providers Care Financial Associate Name Role Phone Dominique Alcaraz MD Primary Care Provider + [phone] Martina Wesley PharmD Unavailable [phone] Refugio Huston MD Unavailable [phone] Chun Álvarez MD Unavailable [phone] Moses Dumont MD Unavailable [phone] Reason for Visit * Reason Comments Med Refill Encounter Details Date Type Department Care Team (Late st Contact Info) Description 03/17/2023 Refill [facility] MEDICINE 230 [place], [place] [phone] Dominique Alcaraz MD 230 [place], [place] [phone] Vitamin D deficiency; Stage 2 chronic kidney [...] Description 07/20/2024 2:00 PM EDT Office Visit [facility] DENTAL [address] [place] [address] Simran Crooks [address] [place] [address] 07/31/2024 11:30 AM EDT Medication Management [facility] MEDICINE [address] [place] [address] Martina Wesley PharmD [address] [place] [address] 10/18/2024 2:15 PM EDT Office Visit [facility] MEDICINE [address] [place] [address] Dominique Alcaraz MD [address] [place] [address] 08[address] 11/07/2024 1:00 PM EDT Office Visit [facility] D[facility]AL [address] [place] [address] Simran Crooks [address] [place] [address] [phone] documented as of this encounter Goals Goal [...] documented as of this encounter Care Teams Financial Associate Relationship Specialty Start Date End Date Dominique Alcaraz MD 230 [place] [address] PCP - General Family Medicine 12/20/12 Martina Wesley PharmD 230 [place] [address] Pharmacist Internal Medicine 03/12/22 Refugio Huston MD [address] [place] [address] Nephrology 05/01/24 Chun Álvarez MD 575 [place] [address] Hematology and Oncology 05/01/24 Moses Dumont MD 596 [place] [address] Cardiology 05/01/24 documented as of this encounter
--- OUTSIDE RECORDS SUMMARY | 2024-07-20 11:55 | XMS_ITS | Encounter Summary ---
Author Organization [employer] Address 75 [facility] 7t [place] [address] Care Team Providers Care United [place] Marshal Name Role Phone Dominique Alcaraz MD Primary Care Provider + [phone] Martina Wesley PharmD Unavailable Refugio Huston MD Unavailable [phone] Chun Álvarez MD Unavailable [phone] Moses Dumont MD Unavailable [phone] Encounter Details Date Type Department Care Team (Late st Contact Info) Description 07/17/[address] [facility] MEDICINE 230 [place], [place] [phone] Dominique Alcaraz MD 230 [place], [place] [phone] Social History Tobacco Use Types Packs/Day Years [...] encounter Miscellaneous Notes * Telephone Encounter - Lesia Buitrago - 07/17/2024 2:04 PM EDT Tc to pt. Left a VM to call back Pharmacy [facility] Lesia Buitrago at [phone]. documented in this encounter Plan of Treatment Upcoming Encounters Date Type Department Care Team (Late st Contact Info) Description 07/20/2024 2:00 PM EDT Office Visit [facility] [address] [place] [address] [phone] Simran Crooks [address] [place], [place] [phone] 07/31/2024 11:30 AM EDT Medication Management [facility] MEDICINE [address] [place] [address] [phone] Martina Wesley, PharmD 230 [place], [place] [phone] 10/18/2024 2:15 PM EDT Office Visit [facility] MEDICINE [address] [place] [address] [phone] Dominique Alcaraz MD 230 [place] [address] 11/07/2024 1:00 PM EDT Office Visit [facility] 91 [place], [place] [phone] Daksha Simran [address] [place] [address] documented as of this encounter Goals Goal Patient Goal Type Associated Problems Recent Progress Patient-Stated? Author Blood Pressure < 140/90 Blood Pressure 110/60(2024 2:07 PM EDT) No Martina Tiwari PharmKourtney Hemoglobin A1c < 7 Result Component 6.8( 10:04 AM EST) No Martina Tiwari PharmD documented as of this encounter Visit Diagnoses Not on filedocumented in this encounter Additional Health Concerns Assessment Noted Time PHQ-9 Depression Total Score: 8 11/03/19 24 9:00 AM EDT documented as of this encounter Care Teams United [place] Marshal Relationship Specialty Start Date End Date Dominique Alcaraz MD 230 [place] [address] PCP - General Family Medicine 12/20/12 Martina Wesley, PharmD 230 [place] [address] Pharmacist Internal Medicine 03/12/22 Refugio Huston MD 2150 [place] [address] Nephrology 05/01/24 Chun Álvarez MD 575 [place] [address] Hematology and Oncology 05/01/24 Moses Dumont MD 596 [place] [address] Cardiology 05/01/24 documented as of this encounter
--- OUTSIDE RECORDS SUMMARY | 2024-07-20 11:55 | XMS_ITS | Encounter Summary ---
Author Organization [facility] Address [address] [place] [address] Phone Care Team Providers Care Cinetechnician Name Role Phone Unavailable Primary Care Provider Unavailabl e Reason for Visit * Reason Comments Med Refill Encounter Details Date Type Department Care Team (Late Contact Info) Description 02/18/2021 Refill [facility] [address] [place] [address] Lyle Blancas MD [address] [facility] [place] [address] Social History Tobacco Use Types [...] Visit [facility] [place], [address] [facility] [place] [address] Refugio Huston MD [address] [facility] [place] [address] documented as of this encounter Visit Diagnoses Not on filedocumented in this encounter
--- OUTSIDE RECORDS SUMMARY | 2024-07-20 11:55 | XMS_ITS | Encounter Summary ---
Author Organization [facility] Address [address] [place] [address] Phone Care Team Providers Care Software Design Engineer Name Role Phone Unavailable Primary Care Provider Unavailabl e Encounter Details Date Type Department Care Team (Late st Contact Info) Description 03/12/2023 Documentation Only [facility] [address] [place] [address] Cesia Perry PA Social History [...] Visit [facility] [address] [place] [address] Refugio Huston MD [address] [place] [address] [place] [address] documented as of this encounter Visit Diagnoses Not on filedocumented in this encounter
--- OUTSIDE RECORDS SUMMARY | 2024-07-20 11:55 | XMS_ITS | Encounter Summary ---
Author Organization [employer] Address 75 [facility] 7t [place] [address] Care Team Providers Care Cloth Shader Name Role Phone Dominique Alcaraz MD Primary Care Provider Martina Wesley PharmD Unavailable Refugio Huston MD Unavailable [phone] Chun Álvarez MD Unavailable [phone] Moses Dumont MD Unavailable Encounter Details Date Type Department Care Team (Late Contact Info) Description 10/30/2022 Abstract [facility] MEDICINE 230 [place] [address] Dominique Alcaraz MD 230 [place] [address] Social History Tobacco Use Types Packs/Day Years [...] Department Care Team (Late Contact Info) Description 07/20/2024 2:00 PM EDT Office Visit [facility] DENTAL [address] [place] [address] Simran Crooks [address] [place] [address] [phone] 07/31/2024 11:30 AM EDT Medication Management [address] [address] Martina Wesley, PharmD [address] [place] [address] 10/18/2024 2:15 PM EDT Office Visit [address] [address] Dominique Alcaraz MD [address] [place] [address] 11/07/2024 1:00 PM EDT Office Visit [facility] DENTAL [address] [place] [address] Simran Crooks [address] [place] [address] [phone] documented as of this encounter Goals Goal Patient Goal Type Associated Problems Recent Progress Patient-Stated? Author Blood Pressure < 140/90 Blood Pressure 110/60(2024 2:07 PM EDT) No JamarisMaria Isabel Levinesa, PharmD Hemoglobin A1c < 7 Result Component 6.8( 10:04 AM EST) No Martina Tiwari PharmD documented as of this encounter Visit Diagnoses Not on filedocumented in this encounter Additional Health Concerns Assessment Noted Time PHQ-9 Depression Total Score: 0 07/09/19 23 3:56 PM EDT documented as of this encounter Care Teams Cloth Shader Relationship Specialty Start Date End Date Dominique Alcaraz MD [address] [place] [address] [phone] PCP - General Family Medicine 12/20/12 Martina Wesley, PharmD [address] [place] [address] Pharmacist Internal Medicine 03/12/22 Refugio Huston MD 2150 [place] [address] Nephrology 05/01/24 Chun Álvarez MD 575 [place] [address] Hematology and Oncology 05/01/24 Moses Dumont MD 596 [place] [address] Cardiology 05/01/24 documented as of this encounter
--- OUTSIDE RECORDS SUMMARY | 2024-07-20 11:55 | XMS_ITS | Encounter Summary ---
Author Organization [employer] Address [address] [facility] 7t [place] [address] Care Team Providers Care Bagging Salvager Name Role Phone Dominique Alcaraz MD Primary Care Provider + [phone] Martina Wesley PharmD Unavailable [phone] Refugio Huston MD Unavailable [phone] Chun Álvarez MD Unavailable [phone] Moses Dumont MD Unavailable [phone] Reason for Visit * Reason Onset Date Comments Pre op 09/23/2023 Encounter Details Date Type Department Care Team (Late st Contact Info) Description 09/23/2023 Telephone [facility] MEDICINE 230 [place], [place] [phone] Dominique Alcaraz MD 230 [place], [place] [phone] Pre op Social History Tobacco Use Types [...] No Surgeon's name: mercedes mohan Facility name: [id number] [address] Surgeon's office number: [phone] Surgeon's office fax number: [phone] Contact name (person you spoke with): [place] Last office note from surgeon requested: No * Telephone Encounter - Bharti Fregoso - 09/23/2023 12:23 PM EDT Date of Surgery: right eye 11/15/23 and left eye 11/28 Surgical procedure being done: cataract surgery both eyes Type of anesthesia: local anesthesia Lab needed: No EKG: No Surgeon's name: mercedes mohan Facility name: [address], [place] [address] Surgeon's office number: [phone] Surgeon's office fax number: [phone] Contact name (person you spoke with): [place] Last office note from surgeon requested: No documented in this encounter Plan of Treatment Upcoming Encounters Date Type Department Care Team ([facility] st Contact Info) Description 07/20/2024 2:00 PM EDT Office Visit [facility] D[facility]AL [address] [place] [address] Simran Crooks [address] [place] [address] 07/31/2024 11:30 AM EDT Medication Management [facility] MEDICINE [address] [place] [address] Martina Wesley, PharmD [address] [place] [address] 10/18/2024 2:15 PM EDT Office Visit [address] [address] Dominique Alcaraz MD [address] [place] [address] 11/07/2024 1:00 PM EDT Office Visit [facility] [address] [place] [address] Simran Crooks [address] [place] [address] documented as of this encounter Goals Goal Patient Goal Type Associated Problems Recent Progress Patient-Stated? Author Blood Pressure < 140/90 Blood Pressure 110/60(2024 2:07 PM EDT) No Jamaris-Martina Jaffe, PharmD Hemoglobin A1c < 7 Result Component 6.8( 10:04 AM EST) No Martina Tiwari, PharmD documented as of this encounter Visit Diagnoses Not on filedocumented in this encounter Additional Health Concerns Assessment Noted Time PHQ-9 Depression Total Score: 0 07/09/19 23 3:56 PM EDT documented as of this encounter Care Teams Bagging Salvager Relationship Specialty Start Date End Date Dominique Alcaraz MD 230 [place] [address] PCP - General Family Medicine 12/20/12 Martina Wesley, BetsyD 230 [place] [address] Pharmacist Internal Medicine 03/12/22 Refugio Huston MD 2150 [place] [phone] Nephrology 05/01/24 Chun Álvarez MD 575 [place] [address] Hematology and Oncology 05/01/24 Moses Dumont MD 596 [place] [address] Cardiology 05/01/24 documented as of this encounter
--- OUTSIDE RECORDS SUMMARY | 2024-07-20 11:55 | XMS_ITS | Encounter Summary ---
Author Organization [facility] Address [address] [place] [address] Phone Care Team Providers Care Inspector Watch Parts Name Role Phone Unavailable Primary Care Provider Unavailabl e Encounter Details Date Type Department Care Team (Late st Contact Info) Description 11/04/2021 Documentation Only [facility] [address] [place] [address] Cesia Perry PA Social History [...] Visit [facility] [address] [place] [address] Refugio Huston MD [address] [place] [address] [place] [address] documented as of this encounter Visit Diagnoses Not on filedocumented in this encounter
--- OUTSIDE RECORDS SUMMARY | 2024-07-20 11:55 | XMS_ITS | Encounter Summary ---
Author Organization [employer] Address [address] [facility] [address] 7t [place] [address] Care Team Providers Care Aquatics Group Fitness Instructor Name Role Phone Dominique Alcaraz MD Primary Care Provider + [phone] Martina Wesley PharmD Unavailable [phone] Refugio Huston MD Unavailable [phone] Chun Álvarez MD Unavailable [phone] Moses Dumont MD Unavailable [phone] Encounter Details Date Type Department Care Team (Late st Contact Info) Description 05/04/2024 Abstract [facility] MEDICINE 230 [place] [address] Sunitha Singleton [place] Social History Tobacco Use [...] Description 07/20/2024 2:00 PM EDT Office Visit [facility] DENTAL [address] [place] [address] Simran Crooks [address] [place] [address] 07/31/2024 11:30 AM EDT Medication Management [facility] MEDICINE [address] [place] [address] Martina Wesley PharmD [address] [place] [address] 10/18/2024 2:15 PM EDT Office Visit [facility] MEDICINE [address] [place] [address] Dominique Alcaraz MD [address] [place] [address] 11/07/2024 1:00 PM EDT Office Visit [facility] DENTAL [address] [place] [address] Simran Crooks [address] [place] [address] documented as of this encounter Goals Goal [...] documented as of this encounter Care Teams Aquatics Group Fitness Instructor Relationship Specialty Start Date End Date Dominique Alcaraz MD 230 [place] [address] PCP - General Family Medicine 12/20/12 Martina Wesley, PharmD 230 [place] [address] Pharmacist Internal Medicine 03/12/22 Refugio Huston MD 2150 [place] [address] Nephrology 05/01/24 Chun Álvarez MD 575 [place] [address] Hematology and Oncology 05/01/24 Moses Dumont MD 596 [place] [address] Cardiology 05/01/24 documented as of this encounter
--- OUTSIDE RECORDS SUMMARY | 2024-07-20 11:55 | XMS_ITS | Encounter Summary ---
Author Organization [facility] Address [address] [place] [address] Phone Care Team Providers Care Bobbin Drier Name Role Phone Unavailable Primary Care Provider Unavailabl e Encounter Details Date Type Department Care Team (Late st Contact Info) Description 06/08/2022 Documentation Only [facility] [address] [place] [address] Cesia Perry PA Social History [...] [facility] [address] [place] [address] Refugio Huston MD [address] [place] [address] [place] [address] documented as of this encounter Visit Diagnoses Not on filedocumented in this encounter
--- OUTSIDE RECORDS SUMMARY | 2024-07-20 11:55 | XMS_ITS | Encounter Summary ---
Author Organization [employer] Address [address] [facility] [address] 7t [place] [address] Care Team Providers Care Grocery Supervisor Name Role Phone Dominique Alcaraz MD Primary Care Provider + [phone] Martina Wesley PharmD Unavailable [phone] Refugio Huston MD Unavailable [phone] Chun Álvarez MD Unavailable [phone] Moses Dumont MD Unavailable [phone] Encounter Details Date Type Department Care Team (Late st Contact Info) Description 07/20/2024 Orders Only GENERIC EXTERNAL DATA [...] housing situation today? I have jase il 11/03/[address] you li [...] Description 07/20/2024 2:00 PM EDT Office Visit [facility] DENTAL [address] [place] [address] Simran Crooks [address] [place] [address] 07/31/2024 11:30 AM EDT Medication Management [facility] MEDICINE [address] [place] [address] Martina Wesley, PharmD [address] [place] [address] 10/18/2024 2:15 PM EDT Office Visit [facility] MEDICINE [address] [place] [address] Dominique Alcaraz MD [address] [place] [address] 11/07/2024 1:00 PM EDT Office Visit [facility] DENTAL [address] [place] [address] Simran Croosk [address] [place] [address] documented as of this encounter Goals Goal [...] [facility] Routine 07/20/2024 11:35 AM EDT documented in this encounter Results * (ABNORMAL) PROTHROMBIN TIME WHOLE BLD POC (07/20/2024 11:35 AM EDT) Protime 29.7(H) 11.1 - 13.5 sec [facility] 07/20/2024 11:3 5 AM EDT 07/20/2024 11:36 AM EDT us Generic External Data Provider LAB BLOOD ORDERAB LES Final Result Performing Organization Address City/State/[facility] Co de Phone Number [facility] [address] [place] [phone] * (ABNORMAL) ~PT, ~INR - ANTI COAG CLINIC (07/20/2024 11:35 AM EDT) Prothrombin Time INR 2.5(H) 0.9 - 1.1 [facility] Comment:METER #: [id number] TERNATIONAL NORMALIZED RATIO (INR) REFERENCE RANGES Reference [...] Provider LAB BLOOD ORDERAB LES Final Result [facility] [address] [place] [address] [phone] documented in this encounter Visit Diagnoses Not on filedocumented in this encounter Additional Health Concerns Assessment Noted Time PHQ-9 Depression Total Score: 8 11/03/19 24 9:00 AM EDT documented as of this encounter Care Teams Grocery Supervisor Relationship Specialty Start Date End Date Dominique Alcaraz MD 230 [place] [address] PCP - General Family Medicine 12/20/12 Martina Wesley, BetsyD [address] [place] [address] Pharmacist Internal Medicine 03/12/22 Refugio Huston MD 2[address] [place] [phone] Nephrology 05/01/24 Chun Álvarez MD 575 [place] [address] Hematology and Oncology 05/01/24 Moses Dumont MD 596 [place] [address] Cardiology 05/01/24 documented as of this encounter
--- OUTSIDE RECORDS SUMMARY | 2024-07-20 11:55 | XMS_ITS | Encounter Summary ---
Author Organization [facility] Address [address] [place] [address] Phone Care Team Providers Care News Operations Manager Name Role Phone Unavailable Primary Care Provider Unavailabl e Encounter Details Date Type Department Care Team (Late st Contact Info) Description 10/17/2021 Orders Only [facility] [address] [place] [address] Lyle Blancas MD [address] [place] [address] [place] [address] Stage 3a chronic kidney disease [...] Visit [facility] [address] [place] [address] Refugio Huston MD [address] [place] [address] [place] [address] Scheduled Orders Name Type Priority [...]
== END 2024-07-20 11:55 | disposition home or self-care (01) ==
LOC: HO.ACS 11:17
PROVIDERS: PCP Family Medicine; Visit Provider Internal Medicine Medical Oncology
DX: Z79.01 Long term (current) use of anticoagulants (principal)

== ENCOUNTER → 2024-07-20 11:17 | Outpatient (BNVA) | payer OTHER, SELFPAY | PROVIDERS: PCP Family Medicine; Visit Provider Internal Medicine Medical Oncology | DX: Z95.2 Presence of prosthetic heart valve (principal); Z79.01 Long term (current) use of anticoagulants; Z51.81 Encounter for therapeutic drug level monitoring | CPT/HCPCS: 85610; 99211 ==

== ENCOUNTER 2024-07-27 13:02 | Outpatient (AMB) | payer OTHER, SELFPAY ==
--- OUTSIDE RECORDS SUMMARY | 2024-07-27 13:05 | XMS_ITS | Encounter Summary ---
Author Organization [facility] Address [address] [place] [address] Phone Care Team Providers Care Doll Wig Hackler Name Role Phone Unavailable Primary Care Provider Unavailabl e Encounter Details Date Type Department Care Team (Late st Contact Info) Description 06/08/2022 Documentation Only [facility] [address] [place] [address] Cesia Perry PA Social History [...] Visit [facility] [address] [place] [address] Refugio Huston MD [address] [place] [address] [place] [address] documented as of this encounter Visit Diagnoses Not on filedocumented in this encounter
--- NOTE | 2024-07-27 13:16 | MHC.OFFVISCO ---
Intake Intake Visit Reasons: Anticoagulation Allergies lisinopril [LISINOPRIL] Allergy (Intermediate, Verified 07/27/24 13:04) rash/cough, palpitations Medication List - Last Reconciled 07/27/24 by Kianna Aviles RN amlodipine 5 mg PO DAILY amoxicillin 1,000 mg PO BID aspirin 81 mg PO DAILY atorvastatin 80 mg PO BEDTIME blood sugar diagnostic (FreeStyle Lite Strips) As directed blood-glucose meter (FreeStyle [place] Lite kit) As directed calcium carbonate (Calcium Antacid) mg PO cholecalciferol (vitamin D3) (Vitamin D3) 25 mcg PO DAILY cyanocobalamin (vitamin B-12) (Vitamin B-12) 500 mcg PO DAILY empagliflozin (Jardiance) 25 mg PO DAILY ferrous sulfate 325 mg PO DAILY lancets (TRUEplus Lancets) As directed metformin ER 500 mg PO QPM metoprolol tartrate 1 tab PO BID telmisartan (Micardis) 80 mg PO DAILY warfarin 5 mg See Protocol PO DIRECTED warfarin 2.5 mg See Protocol PO DIRECTED Nursing Note INR: 2.8 in therapeutic range Medications and supplements reviewed No changes in health, diet, medications, or supplements, Denies any signs and symptoms of bleeding or bruising or clotting. Bleeding, bruising, clotting discussed Nutritional guidance given Dose:5mg x 2days/ 2.5mg x 5 days F/U INR: 08/01/2024 prior dental appt Patient verbalizes understanding of instructions given Anti-Coag Initial Assessment Social Hx Patient Tobacco Use Status: Never used Tobacco alcohol intake: former Alcohol intake frequency: does not drink Coding Level of Care Code Est Patient Level 1 Diagnoses Current use of anticoagulant therapy Z79.01 Results AMB INR Fingerstick AMB INR Fingerstick 2.8 Last Edit by Kianna Aviles RN on 07/27/24 13:13 manual entry failed interfacing ongoing status Assessment & Plan Assessment & Plan (1) Current use of anticoagulant therapy: 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
[2024-07-27 13:19] LABS: Prothrombin Time Whole Bld POC 33.4 sec (11.1-13.5); ~PT, ~INR - Anti Coag Clinic 2.8 (0.9-1.1)
== END 2024-07-27 13:17 | disposition home or self-care (01) ==
LOC: HO.ACS 13:02
PROVIDERS: PCP Family Medicine; Visit Provider Internal Medicine Medical Oncology
DX: Z79.01 Long term (current) use of anticoagulants (principal)

== ENCOUNTER → 2024-07-27 13:02 | Outpatient (BNVA) | payer OTHER, SELFPAY | PROVIDERS: PCP Family Medicine; Visit Provider Internal Medicine Medical Oncology | DX: Z95.2 Presence of prosthetic heart valve (principal); Z79.01 Long term (current) use of anticoagulants; Z51.81 Encounter for therapeutic drug level monitoring | CPT/HCPCS: 85610; 99211 ==

== ENCOUNTER 2024-08-01 11:02 | Outpatient (AMB) | payer OTHER, SELFPAY ==
[2024-08-01 11:19] LABS: Prothrombin Time Whole Bld POC 35.4 sec (11.1-13.5)
--- NOTE | 2024-08-01 12:13 | MHC.OFFVISCO ---
Intake Intake Visit Reasons: Anticoagulation Allergies lisinopril (LISINOPRIL) Allergy (Intermediate, Verified 08/25/24 13:05) rash/cough, palpitations Medication List - Last Reconciled 08/01/24 by Kianna Aviles RN amlodipine 5 mg PO DAILY amoxicillin 1,000 mg PO BID aspirin 81 mg PO DAILY atorvastatin 80 mg PO BEDTIME blood sugar diagnostic (FreeStyle Lite Strips) As directed blood-glucose meter (FreeStyle [place] Lite kit) As directed calcium carbonate (Calcium Antacid) mg PO cholecalciferol (vitamin D3) (Vitamin D3) 25 mcg PO DAILY cyanocobalamin (vitamin B-12) (Vitamin B-12) 500 mcg PO DAILY empagliflozin (Jardiance) 25 mg PO DAILY ferrous sulfate 325 mg PO DAILY lancets (TRUEplus Lancets) As directed metformin ER 500 mg PO QPM metoprolol tartrate 1 tab PO BID telmisartan (Micardis) 80 mg PO DAILY warfarin 5 mg See Protocol PO DIRECTED warfarin 2.5 mg See Protocol PO DIRECTED Nursing Note Pt seen on 08/01/2204 to have INR done prior dental procedure - no other changes antbx prior dental cleaning Anti-Coag Initial Assessment Social Hx Patient Tobacco Use Status: Never used Tobacco alcohol intake: former Alcohol intake frequency: does not drink Coding Level of Care Code Est Patient Level 1 Diagnoses Current use of anticoagulant therapy Z79.01 Results AMB INR Fingerstick AMB INR Fingerstick 3.0 Last Edit by Kianna Aviles RN on 08/01/24 11:09 manual entry Assessment & Plan Assessment & Plan (1) Current use of anticoagulant therapy: Code(s): Z79.01 - rn long term care (current) 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
--- OUTSIDE RECORDS SUMMARY | 2024-08-01 12:43 | XMS_ITS | Encounter Summary ---
Author Organization [facility] Address [address] [place] [address] Phone Care Team Providers Care Decorating Equipment Setter Name Role Phone Unavailable Primary Care Provider Unavailabl e Encounter Details Date Type Department Care Team (Late st Contact Info) Description 06/08/2022 Documentation Only [facility] [address] [place] [address] Cesia Perry PA Social History [...] Visit [facility] [address] [place] [address] Refugio Huston MD [address] [place] [address] Dr. [place] [address] documented as of this encounter Visit Diagnoses Not on filedocumented in this encounter
== END 2024-08-01 11:28 | disposition home or self-care (01) ==
LOC: HO.ACS 11:02
PROVIDERS: PCP Family Medicine; Visit Provider Internal Medicine Medical Oncology
DX: Z79.01 Long term (current) use of anticoagulants (principal)

== ENCOUNTER → 2024-08-01 11:02 | Outpatient (BNVA) | payer OTHER, SELFPAY | PROVIDERS: PCP Family Medicine; Visit Provider Internal Medicine Medical Oncology | DX: Z95.2 Presence of prosthetic heart valve (principal); Z79.01 Long term (current) use of anticoagulants; Z51.81 Encounter for therapeutic drug level monitoring | CPT/HCPCS: 85610; 99211 ==

== ENCOUNTER 2024-08-07 08:01 | Outpatient (REF) | payer OTHER, SELFPAY ==
--- OUTSIDE RECORDS SUMMARY | 2024-08-07 08:04 | XMS_ITS | Encounter Summary ---
Author Organization [facility] Address [address] [place] [address] Phone Care Team Providers Care Plastic Jig And Fixture Builder Name Role Phone Unavailable Primary Care Provider Unavailabl e Encounter Details Date Type Department Care Team (Late st Contact Info) Description 06/08/2022 Documentation Only [facility] [address] [place] [address] Cesia Perry PA Social History [...] [facility] [address] [place] [address] Refugio Huston MD [address] [place] [address] [place] [address] documented as of this encounter Visit Diagnoses Not on filedocumented in this encounter
[2024-08-07 11:47] LABS: Alanine Aminotransferase 25 U/L (0-31); Albumin Level 4.3 g/dL (3.5-5.0); Alkaline Phosphatase 91 U/L (39-117); Anion Gap 13 (12-20); Aspartate Amino Transferase 27 U/L (5-31); Bilirubin Direct 0.1 mg/dL (0.0-0.5); Bilirubin Total 0.4 mg/dL (0.0-1.0); Blood Urea Nitrogen 24 mg/dL (9-16); Calcium 10.1 mg/dL (8.4-10.2); Carbon Dioxide 26 mmol/L (22-29); Chloride 109 mmol/L (96-108); Cholesterol 210 mg/dL (<200); Estimated Glomerular Filt Rate 47; Glucose Random 132 mg/dL (60-115); HDL Cholesterol 35 mg/dL (>40); LDL Cholesterol Calculated 103 mg/dL (<100); Potassium 4.8 mmol/L (3.3-5.1); Sodium 143 mmol/L (135-145); Total Protein 7.8 g/dL (6.5-8.0); Triglycerides 362 mg/dL (<150)
[2024-08-07 11:56] LABS: Creatinine Urine 68.38 mg/dL; Microalbum/Creatinine Ratio Ur 299.7 ug/mg cr (<30)
[2024-08-07 12:10] LABS: ~HepC Num1 0.11 S/CO (0.00-0.79); ~Hepatitis C Antibody Nonreactive (Nonreactive)
== END 2024-08-07 08:02 | disposition home or self-care (01) ==
LOC: HO.HHCL 08:01
PROVIDERS: Visit Provider Family Medicine
DX: E11.22 Type 2 diabetes mellitus with diabetic chronic kidney disease (principal); Z11.59 Encounter for screening for other viral diseases; E78.5 Hyperlipidemia, unspecified
CPT/HCPCS: 36415; 80048; 80061; 80076; 82043; 82570; 86803

== ENCOUNTER 2024-08-25 13:04 | Outpatient (AMB) | payer OTHER, SELFPAY ==
[2024-08-25 13:11] LABS: Prothrombin Time Whole Bld POC 48.9 sec (11.1-13.5); ~PT, ~INR - Anti Coag Clinic 4.1 (0.9-1.1)
--- NOTE | 2024-08-25 13:34 | MHC.OFFVISCO ---
Intake Intake Visit Reasons: Anticoagulation Allergies lisinopril (LISINOPRIL) Allergy (Intermediate, Verified 08/25/24 13:05) rash/cough, palpitations Medication List - Last Reconciled 08/25/24 by Kianna Aviles RN amlodipine 5 mg PO DAILY amoxicillin 1,000 mg PO BID aspirin 81 mg PO DAILY atorvastatin 80 mg PO BEDTIME blood sugar diagnostic (FreeStyle Lite Strips) As directed blood-glucose meter (FreeStyle [place] Lite kit) As directed calcium carbonate (Calcium Antacid) mg PO cholecalciferol (vitamin D3) (Vitamin D3) 25 mcg PO DAILY cyanocobalamin (vitamin B-12) (Vitamin B-12) 500 mcg PO DAILY empagliflozin (Jardiance) 25 mg PO DAILY ferrous sulfate 325 mg PO DAILY lancets (TRUEplus Lancets) As directed metformin ER 500 mg PO QPM metoprolol tartrate 1 tab PO BID telmisartan (Micardis) 80 mg PO DAILY warfarin 5 mg See Protocol PO DIRECTED warfarin 2.5 mg See Protocol PO DIRECTED Nursing Note INR 4.1 out of therapeutic range Medications and supplements reviewed- did not start fish oil Patient status: ATE LESS WITH THE HEAT Medications or supplements: no changes Diet: good Denies any signs and symptoms of bleeding or clotting or unusual bruising Bleeding, bruising, clotting discussed Nutritional guidance given: greens today Dose: hold today's dose then resume 20mg x 3 days/ 17.5mg x 4 days F/U INR Date: 2 weeks 09/08/2024 ?? Patient verbalizing understanding of instructions given. 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
--- OUTSIDE RECORDS SUMMARY | 2024-08-25 13:38 | XMS_ITS | Encounter Summary ---
Author Organization [facility] Address [address] [place] [address] Phone Care Team Providers Care Case Work Aide Name Role Phone Unavailable Primary Care Provider Unavailabl e Encounter Details Date Type Department Care Team (Late st Contact Info) Description 06/08/2022 Documentation Only [facility] [address] [place] [address] Cesia Perry PA Social History [...] [facility] [address] [place] [address] Refugio Huston MD [address] [place] [address] [place] [address] documented as of this encounter Visit Diagnoses Not on filedocumented in this encounter
== END 2024-08-25 13:36 | disposition home or self-care (01) ==
LOC: HO.ACS 13:04
PROVIDERS: PCP Family Medicine; Visit Provider Internal Medicine Medical Oncology
DX: Z79.01 Long term (current) use of anticoagulants (principal)

== ENCOUNTER → 2024-08-25 13:04 | Outpatient (BNVA) | payer OTHER, SELFPAY | PROVIDERS: PCP Family Medicine; Visit Provider Internal Medicine Medical Oncology | DX: Z95.2 Presence of prosthetic heart valve (principal); Z51.81 Encounter for therapeutic drug level monitoring; Z79.01 Long term (current) use of anticoagulants | CPT/HCPCS: 85610; 99211 ==

== ENCOUNTER 2024-08-30 08:04 | Outpatient (REF) | payer OTHER, SELFPAY ==
--- OUTSIDE RECORDS SUMMARY | 2024-08-30 08:07 | XMS_ITS | Patient Health Record ---
Author Organization [facility] Address [address] [place] [address] Care Team Providers Care Power Project Manager Name Role Phone Dominique Alcaraz MD Primary Care Provider Shira Bogdan Connelly Unavailable [phone] Allergies Allergen (clinical drug ingredient) Drug/Non Drug Allergy documented on EMR Reaction Allergy Type Onset Date Status Lisinopril Unknown Drug Allergy Active Reason For Referral No Information Medications Medication SIG (Take, Route, Frequency, Duration) Notes Start Date End Date Status Atorvastatin Calcium 40 MG 1 tablet Oral ly Once a day for 30 day(s) Active Telmisartan 40 MG 1 tablet Orally Once a day for 30 day(s) Active Metoprolol Tartrate 50 MG 1 tablet with food Orally Twice a day for 30 day(s) Active Warfarin Sodium 5 MG 1 tablet Orally Onc e a day for 30 day(s) Active Aspir-81 81 MG 1 tablet Orally Once a day for 30 day(s) Active MiraLax (colon prep) 8.3 ounce ((238) grams mixed with Gatorade or Crystal Light orally begin at 5:00 p.m. the day before the procedure for 1 day 07/24/2018 Active Dulcolax (colon prep) 5 MG take at 3:00 p.m and 7:00p.m. Orally two tablets twice a day for one day for 1 day 07/24/2018 Active Immunizations Vaccine Route Administration Date Status Comme nts Influenza Unknown 01/12/2018 Administered Social History Tobacco Use: Social History Observation Description Date Details (start date - stop date) Never Smoker NA - NA Tobacco Use/Smoking Question Answer Notes Patient is a nonsmoker Alcohol Screen Question Answer Notes Did you have a drink containing alcohol in the p ast year? No Points 0 Interpretation Negative Section Notes: Nonsmoker; no sig alcohol Problems Problem Type SNOMED Code ICD Code Onset Dates Problem Status W/U Status Risk Notes Problem 288337775 Encounter for screening for malignant neoplasm of colon (Z12.11) Active confirmed Problem 054539938 Gallstones (K80.20) Active confirmed Problem 006410771 RUQ pain (R10.11) Active confirmed Plan Of Treatment Future Test Test Name Order Date COLONOSCOPY 05/11/2018 Insurance Providers Payer Name Payer Address Payer Phone Subscriber Number Group Number Insured Name Patient Relationship to Insured Coverage Start Date Coverage End Date [facility] [address] [place] [address] [id number] KUNAL RYAN Self - patient is the insured Medical (General) History Medical History History ICD Code Denies [place],DM,CVA,Lung disease,renal dise ase Neg. 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 Andre before 2012 Surgical History Surgery Date(Month/Year) BTL Breast biopsy-benign Aortic valve replacement and ascending a irwin aneurysm repair 2012
--- OUTSIDE RECORDS SUMMARY | 2024-08-30 08:07 | XMS_ITS | Encounter Summary ---
Author Organization [employer] Address [address] [facility] 7t [place] [address] Care Team Providers Care Safe Deposit Attendant Name Role Phone Dominique Alcaraz MD Primary Care Provider Martina Wesley PharmD Unavailable Refugio Huston MD Unavailable Chun Álvarez MD Unavailable [phone] Moses Dumont MD Unavailable Encounter Details Date Type Department Care Team (Late Contact Info) Description 10/30/2022 Abstract [facility] [address] [place] [address] Dominique Alcaraz MD [address] [place] [address] Social History Tobacco Use Types Packs/Day Years [...] Department Care Team (Late Contact Info) Description 09/04/2024 11:00 AM EDT Medication Management [facility] [address] [place] [address] Martina Wesley, PharmD [address] [place] [address] 10/18/2024 2:15 PM EDT Office Visit [facility] [address] [place] [address] Dominique Alcaraz MD [address] [place] [address] 11/07/2024 1:00 PM EDT Office Visit [facility] [address] [place] [address] [phone] Simran Crooks [address] [place], [place] [phone] documented as of this encounter Goals Goal Patient Goal Type Associated Problems Recent Progress Patient-Stated? Author Blood Pressure < 140/90 Blood Pressure 110/72(2024 11:22 AM EDT) No Liliana-Martina Jaffe, PharmD Hemoglobin A1c < 7 Result Component 7.2( 12:06 PM EDT) No Martina Tiwari PharmD documented as of this encounter Visit Diagnoses Not on filedocumented in this encounter Additional Health Concerns Assessment Noted Time PHQ-9 Depression Total Score: 0 07/09/19 23 3:56 PM EDT documented as of this encounter Care Teams Safe Deposit Attendant Relationship Specialty Start Date End Date Dominique Alcaraz MD [address] [place] [address] PCP - General Family Medicine 12/20/12 JamarisMartina Larsen, PharmD [address] [place] [address] Pharmacist Internal Medicine 03/12/22 Refugio Huston MD [address] [place] [phone] Nephrology 3/3/25 Chun Álvarez MD [address] [place] [address] Hematology and Oncology 05/01/24 Moses Dumont MD [address] [place] [address] Cardiology 05/01/24 documented as of this encounter
--- OUTSIDE RECORDS SUMMARY | 2024-08-30 08:07 | XMS_ITS | Encounter Summary ---
Author Organization [facility] Address [address] [place] [address] Phone Care Team Providers Care Fish Peddler Name Role Phone Unavailable Primary Care Provider Unavailabl e Encounter Details Date Type Department Care Team (Late st Contact Info) Description 06/08/2022 Documentation Only [facility] [address] [place] [address] Cesia Perry PA [address] [facility] [facility] [place] [address] Social History Tobacco Use Types Packs/Day Years [...] Visit [facility] [address] [facility] [address] [place] [address] Refugio Huston MD [address] [facility] [place] [address] documented as of this encounter Visit Diagnoses Not on filedocumented in this encounter
[2024-08-30 12:38] LABS: Alanine Aminotransferase 25 U/L (0-31); Albumin Level 4.4 g/dL (3.5-5.0); Alkaline Phosphatase 91 U/L (39-117); Aspartate Amino Transferase 29 U/L (5-31); Cholesterol 128 mg/dL (<200); HDL Cholesterol 33 mg/dL (>40); Total Protein 7.7 g/dL (6.5-8.0); Triglycerides 270 mg/dL (<150)
== END 2024-08-30 08:05 | disposition home or self-care (01) ==
LOC: HO.HHCL 08:04
PROVIDERS: PCP Family Medicine; Visit Provider Family Medicine
DX: E78.5 Hyperlipidemia, unspecified (principal)
CPT/HCPCS: 36415; 80061; 80076

== ENCOUNTER 2024-09-08 13:00 | Outpatient (AMB) | payer OTHER, SELFPAY ==
--- OUTSIDE RECORDS SUMMARY | 2024-09-08 13:03 | XMS_ITS | Encounter Summary ---
Author Organization [employer] Address [address] [facility] 7t [place] [address] Care Team Providers Care Silo Worker Name Role Phone Dominique Alcaraz MD Primary Care Provider Martina Wesley PharmD Unavailable [phone] Refugio Huston MD Unavailable Chun Álvarez MD Unavailable [phone] Moses Dumont MD Unavailable [phone] Encounter Details Date Type Department Care Team (Late Contact Info) Description 10/30/2022 Abstract [facility] [address] [place] [address] Dominique Alcaraz MD [address] [place] [address] [phone] Social History Tobacco Use Types Packs/Day Years [...] Department Care Team (Late Contact Info) Description 10/18/2024 2:15 PM EDT Office Visit [facility] [address] [place] [address] Dominique Alcaraz MD [address] [place] [address] 11/07/2024 1:00 PM EDT Office Visit [facility] [address] [place], [place] [phone] Simran Crooks [address] [place], [place] [phone] documented as of this encounter Goals Goal Patient Goal Type Associated Problems Recent Progress Patient-Stated? Author Blood Pressure < 140/90 Blood Pressure 110/72(2024 11:22 AM EDT) No Martina Tiwari PharmD Hemoglobin A1c < 7 Result Component 7.2( 12:06 PM EDT) No Martina Tiwari PharmD documented as of this encounter Visit Diagnoses Not on filedocumented in this encounter Additional Health Concerns Assessment Noted Time PHQ-9 Depression Total Score: 0 07/09/19 3:56 PM EDT documented as of this encounter Care Teams Silo Worker Relationship Specialty Start Date End Date Dominique Alcaraz MD [address] [place] [address] PCP - General Family Medicine 12/20/12 Martina Wesley, PharmD [address] [place] [address] Pharmacist Internal Medicine 03/12/22 [place] [address] [place] [phone] Nephrology 05/01/24 Chun Álvarez MD [address] [place] [address] Hematology and Oncology 05/01/24 Moses Dumont MD [address] [place] [address] Cardiology 05/01/24 documented as of this encounter
--- OUTSIDE RECORDS SUMMARY | 2024-09-08 13:03 | XMS_ITS | Encounter Summary ---
Author Organization [facility] Address [address] [place] [address] Phone Care Team Providers Care Metal Engineering Process Worker Name Role Phone Unavailable Primary Care Provider Unavailabl e Encounter Details Date Type Department Care Team (Late st Contact Info) Description 06/08/2022 Documentation Only [facility] [address] [place] [address] Cesia Perry PA [address] [facility] [place] [address] Social History Tobacco Use Types [...] Visit [facility] [address] [place] [address] Refugio Huston MD [address] [facility] [place] [address] documented as of this encounter Visit Diagnoses Not on filedocumented in this encounter
--- OUTSIDE RECORDS SUMMARY | 2024-09-08 13:04 | XMS_ITS | Patient Health Record ---
Author Organization [facility] Address [address] [place] [address] Care Team Providers Care Group Insurance Special Agent Name Role Phone Dominique Alcaraz MD Primary Care Provider Shira Bogdan Connelly Unavailable [phone] Allergies Allergen (clinical drug ingredient) Drug/Non Drug [...] Problem Status W/U Status Risk Notes Problem [id number] Encounter for screening for malignant neoplasm of colon (Z12.11) Active confirmed Problem [id number] Gallstones (K80.20) Active confirmed Problem [id number] RUQ pain (R10.11) Active confirmed Plan Of Treatment Future Test Test Name Order Date COLONOSCOPY 05/11/2018 Insurance Providers Payer Name Payer Address Payer Phone Subscriber Number Group Number Insured Name Patient Relationship to Insured Coverage Start Date Coverage End Date [facility]ICAID OF [facility] [address] [place] [address] [id number] KUNAL RYAN Self - patient is the insured Medical (General) History Medical History History ICD Code Denies [place],DM,CVA,Lung disease,renal dise ase Neg. 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 Anrde before 2012 Surgical History Surgery Date(Month/Year) BTL Breast biopsy-benign Aortic valve replacement and ascending a irwin aneurysm repair 2012
[2024-09-08 13:11] LABS: Prothrombin Time Whole Bld POC 37.8 sec (11.1-13.5); ~PT, ~INR - Anti Coag Clinic 3.2 (0.9-1.1)
--- NOTE | 2024-09-08 13:35 | MHC.OFFVISCO ---
Intake Intake Visit Reasons: Anticoagulation Allergies lisinopril (LISINOPRIL) Allergy (Intermediate, Verified 09/08/24 13:04) rash/cough, palpitations Medication List - Last Reconciled 09/08/24 by Kianna Aviles RN amlodipine 5 mg PO DAILY amoxicillin 1,000 mg PO BID aspirin 81 mg PO DAILY atorvastatin 80 mg PO BEDTIME blood sugar diagnostic (FreeStyle Lite Strips) As directed blood-glucose meter (FreeStyle [place] Lite kit) As directed calcium carbonate (Calcium Antacid) mg PO cholecalciferol (vitamin D3) (Vitamin D3) 25 mcg PO DAILY cyanocobalamin (vitamin B-12) (Vitamin B-12) 500 mcg PO DAILY empagliflozin (Jardiance) 25 mg PO DAILY ferrous sulfate 325 mg PO DAILY lancets (TRUEplus Lancets) As directed metformin ER 500 mg PO QPM metoprolol tartrate 1 tab PO BID telmisartan (Micardis) 80 mg PO DAILY warfarin 5 mg See Protocol PO DIRECTED warfarin 2.5 mg See Protocol PO DIRECTED Nursing Note [facility] [place] utilized for pt visit INR: 3.2 in therapeutic range Medications and supplements reviewed No changes in health, diet, medications, or supplements, Denies any signs and symptoms of bleeding or bruising or clotting. Bleeding, bruising, clotting discussed Nutritional guidance given - keep up weekly greens Dose: 5mg x 2 days/ 2.5mg x 5 days F/U INR: 3 weeks Patient verbalizes understanding of instructions given Anti-Coag Initial Assessment Social Hx Patient Tobacco Use Status: Never used Tobacco alcohol intake: former Alcohol intake frequency: does not drink Coding Level of Care Code Est Patient Level 1 Diagnoses Current use of anticoagulant therapy Z79.01 Results AMB INR Fingerstick AMB INR Fingerstick 3.2 Last Edit by Kianna Aviles RN on 09/08/24 13:13 manual entry Assessment & Plan Assessment & Plan (1) Current use of anticoagulant therapy: Code(s): Z79.01 - long term care administrator (current) 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
== END 2024-09-08 13:37 | disposition home or self-care (01) ==
LOC: HO.ACS 13:00
PROVIDERS: PCP Family Medicine; Visit Provider Internal Medicine Medical Oncology
DX: Z79.01 Long term (current) use of anticoagulants (principal)

== ENCOUNTER → 2024-09-08 13:00 | Outpatient (BNVA) | payer OTHER, SELFPAY | PROVIDERS: PCP Family Medicine; Visit Provider Internal Medicine Medical Oncology | DX: Z95.2 Presence of prosthetic heart valve (principal); Z79.01 Long term (current) use of anticoagulants; Z51.81 Encounter for therapeutic drug level monitoring | CPT/HCPCS: 85610; 99211 ==

== ENCOUNTER 2024-09-29 13:01 | Outpatient (AMB) | payer OTHER, SELFPAY ==
--- OUTSIDE RECORDS SUMMARY | 2024-09-29 13:03 | XMS_ITS | Encounter Summary ---
Author Organization [facility] Address [address] [place] [address] Phone Care Team Providers Care College Hire Name Role Phone Unavailable Primary Care Provider Unavailabl e Encounter Details Date Type Department Care Team (Late st Contact Info) Description 06/08/2022 Documentation Only [facility] [address] [place] [address] Cesia Perry PA [address] [place] [address] Social History Tobacco Use Types [...] Visit [facility] [address] [place] [address] Refugio Huston MD [address] [facility] [place] [address] documented as of this encounter Visit Diagnoses Not on filedocumented in this encounter
--- OUTSIDE RECORDS SUMMARY | 2024-09-29 13:03 | XMS_ITS | Encounter Summary ---
Author Organization [employer] Address [address] [facility] 7t [place] [address] Care Team Providers Care Microsoft Systems Engineer Name Role Phone Dominique Alcaraz MD Primary Care Provider Martina Wesley PharmD Unavailable Refugio Huston MD Unavailable Chun Álvarez MD Unavailable [phone] Moses Dumont MD Unavailable Encounter Details Date Type Department Care Team (Late Contact Info) Description 10/30/2022 Abstract [facility] [address] [place] [id number] Dominique Alcaraz MD [address] [place] [address] [id number] Social History Tobacco Use Types Packs/Day Years [...] Description 10/18/2024 2:15 PM EDT Office Visit [facility] [address] [place] [address] Dominique Alcaraz MD [address] [place] [address] 11/07/2024 1:00 PM EDT Office Visit [facility] [address] [place], [place] [phone] Simran Crooks [address] [place], [place] [phone] 11/21/2024 10:00 AM EDT Medication Management [facility] [address] [place] [address] Martina Wesley PharmD [address] [place] [address] documented as of this encounter Goals Goal Patient Goal Type Associated Problems Recent Progress Patient-Stated? Author Blood Pressure < 140/90 Blood Pressure 120/58(2024 9:09 AM EDT) No Jamaris-Martina Jaffe, PharmD Hemoglobin A1c < 7 Result Component 7.2( 12:06 PM EDT) No Martina Tiwari PharmD documented as of this encounter Visit Diagnoses Not on filedocumented in this encounter Additional Health Concerns Assessment Noted Time PHQ-9 Depression Total Score: 0 07/09/19 3:56 PM EDT documented as of this encounter Care Teams Microsoft Systems Engineer Relationship Specialty Start Date End Date Dominique Alcaraz MD [address] [place] [address] PCP - General Family Medicine 12/20/12 JamarisMartina Larsen, PharmD [address] [place] [address] Pharmacist Internal Medicine 03/12/22 Refugio Huston MD [address] [place] [phone] Nephrology 3/3/25 Chun Álvarez MD [address] [place] [address] Hematology and Oncology 05/01/24 Moses Dumont MD [address] [place] [address] Cardiology 05/01/24 documented as of this encounter
--- OUTSIDE RECORDS SUMMARY | 2024-09-29 13:04 | XMS_ITS | Patient Health Record ---
Author Organization [facility] Address [address] [place] [address] Care Team Providers Care Mineral Wool Insulation Supervisor Name Role Phone Dominique Alcraaz MD Primary Care Provider Shira Bogdan Connelly Unavailable [phone] Allergies Allergen (clinical drug ingredient) Drug/Non Drug Allergy documented on EMR Reaction Allergy Type Onset Date Status lisinopril Lisinopril Unknown Drug Allergy Activ e Reason For Referral No Information Medications Medication [...] Problem Status W/U Status Risk Notes Problem [id number] Encounter for screening for malignant neoplasm of colon (Z12.11) Active confirmed Problem [id number] Gallstones (K80.20) Active confirmed Problem [id number] RUQ pain (R10.11) Active confirmed Plan Of Treatment Future Test Test Name Order Date COLONOSCOPY 05/11/2018 Insurance Providers Payer Name Payer Address Payer Phone Subscriber Number Group Number Insured Name Patient Relationship to Insured Coverage Start Date Coverage End Date MEDICAID OF [employer] [address] [place] [phone] [id number] KUNAL RYAN Self - patient is the insured Medical (General) History Medical History History ICD Code Denies MO,DM,CVA,Lung disease,renal dise ase Neg. 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 Andre before 2012 Surgical History Surgery Date(Month/Year) BTL Breast biopsy-benign Aortic valve replacement and ascending a irwin aneurysm repair 2012
[2024-09-29 13:13] LABS: Prothrombin Time Whole Bld POC 40.0 sec (11.1-13.5); ~PT, ~INR - Anti Coag Clinic 3.3 (0.9-1.1)
--- NOTE | 2024-09-29 13:16 | MHC.OFFVISCO ---
Intake Intake Visit Reasons: Anticoagulation Allergies lisinopril (LISINOPRIL) Allergy (Intermediate, Verified 09/29/24 13:08) rash/cough, palpitations Medication List - Last Reconciled 09/29/24 by Kianna Aviles RN amlodipine 5 mg PO DAILY amoxicillin 1,000 mg PO BID aspirin 81 mg PO DAILY atorvastatin 80 mg PO BEDTIME blood sugar diagnostic (FreeStyle Lite Strips) As directed blood-glucose meter (FreeStyle [place] Lite kit) As directed calcium carbonate (Calcium Antacid) mg PO cholecalciferol (vitamin D3) (Vitamin D3) 25 mcg PO DAILY cyanocobalamin (vitamin B-12) (Vitamin B-12) 500 mcg PO DAILY empagliflozin (Jardiance) 25 mg PO DAILY ferrous sulfate 325 mg PO DAILY lancets (TRUEplus Lancets) As directed metformin ER 500 mg PO QPM metoprolol tartrate 1 tab PO BID telmisartan (Micardis) 80 mg PO DAILY warfarin 5 mg See Protocol PO DIRECTED warfarin 2.5 mg See Protocol PO DIRECTED Nursing Note INR 3.3?? out of therapeutic range Medications and supplements reviewed Patient status: well Medications or supplements: no changes Diet: good Denies any signs and symptoms of bleeding or clotting or unusual bruising Bleeding, bruising, clotting discussed Nutritional guidance given: weekly greens Dose: 5mg x 2 days/ 2.5mg x 5 days F/U INR Date : 3 weeks?? Patient verbalizing understanding of instructions given. Anti-Coag Initial Assessment Social Hx Patient Tobacco Use Status: Never used Tobacco alcohol intake: former Alcohol intake frequency: does not drink Coding Level of Care Code Est Patient Level 1 Diagnoses Current use of anticoagulant therapy Z79.01 Results AMB INR Fingerstick AMB INR Fingerstick 3.3 Last Edit by Kainna Aviles RN on 09/29/24 13:14 manual entry Assessment & Plan Assessment & Plan (1) Current use of anticoagulant therapy: Code(s): Z79.01 - courtroom clerk (current) 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
== END 2024-09-29 13:20 | disposition home or self-care (01) ==
LOC: HO.ACS 13:01
PROVIDERS: PCP Family Medicine; Visit Provider Internal Medicine Medical Oncology
DX: Z79.01 Long term (current) use of anticoagulants (principal)

== ENCOUNTER → 2024-09-29 13:01 | Outpatient (BNVA) | payer OTHER, SELFPAY | PROVIDERS: PCP Family Medicine; Visit Provider Internal Medicine Medical Oncology | DX: Z79.01 Long term (current) use of anticoagulants (principal) | CPT/HCPCS: 85610; 99211 ==

== ENCOUNTER 2024-10-20 13:04 | Outpatient (AMB) | payer OTHER, SELFPAY ==
--- OUTSIDE RECORDS SUMMARY | 2024-10-20 13:06 | XMS_ITS | Encounter Summary ---
Author Organization [facility] Address [address] [place] [address] Phone Care Team Providers Care Telegraph Equipment Maintainer Name Role Phone Unavailable Primary Care Provider Unavailabl e Encounter Details Date Type Department Care Team (Late st Contact Info) Description 06/08/2022 Documentation Only [facility] [address] [facility] [address] Cesia Perry PA [address] [facility] [place] [address] Social History Tobacco Use Types [...] Care Team (Late st Contact Info) Description 01/16/2025 10:10 AM EST Office Visit [facility] [address] [facility] [address] Refugio Huston MD [address] [facility] [place] [address] documented as of this encounter Visit Diagnoses Not on filedocumented in this encounter
--- OUTSIDE RECORDS SUMMARY | 2024-10-20 13:06 | XMS_ITS | Encounter Summary ---
Author Organization [employer] Address [address] [facility] 7t [place] [address] Care Team Providers Care Assurance Services Manager Health Care Name Role Phone Dominique Alcaraz MD Primary Care Provider Martina Wesley PharmD Unavailable [phone] Refugio Huston MD Unavailable [phone] Chun Álvarez MD Unavailable [phone] Moses Dumont MD Unavailable [phone] Encounter Details Date Type Department Care Team (Late Contact Info) Description 10/30/2022 Abstract [facility] [address] [place] [address] Dominique Alcaraz MD [address] [place] [address] Social History Tobacco Use Types Packs/Day Years [...] Department Care Team (Late Contact Info) Description 11/07/2024 1:00 PM EDT Office Visit [facility] [address] [place] [address] Daksha, Simran [address] [place], [place] [phone] 11/21/2024 10:00 AM EDT Medication Management [facility] [address] [place] [address] Martina Wesley PharmD [address] [place] [address] documented as of this encounter Goals Goal Patient Goal Type Associated Problems Recent Progress Patient-Stated? Author Blood Pressure < 140/90 Blood Pressure 120/58(2024 9:09 AM EDT) No Martina Tiwari PharmD Hemoglobin A1c < 7 Result Component 7.2( 12:06 PM EDT) No Martina Tiwari PharmD documented as of this encounter Visit Diagnoses Not on filedocumented in this encounter Additional Health Concerns Assessment Noted Time PHQ-9 Depression Total Score: 0 07/09/19 3:56 PM EDT documented as of this encounter Care Teams Assurance Services Manager Health Care Relationship Specialty Start Date End Date Dominique Alcaraz MD [address] [place] [address] PCP - General Family Medicine 12/20/12 Martina Wesley, PharmD [address] [place] [address] Pharmacist Internal Medicine 03/12/22 [place] [address] [place] [phone] Nephrology 05/01/24 Chun Álvarez MD [address] [place] [address] Hematology and Oncology 05/01/24 Moses Dumont MD [address] [place] [address] Cardiology 05/01/24 documented as of this encounter
--- OUTSIDE RECORDS SUMMARY | 2024-10-20 13:06 | XMS_ITS | Patient Health Record ---
Author Organization [facility] Address [address] [place] [address] Care Team Providers Care Instant Print Operator Name Role Phone Dominique Alcaraz MD Primary Care Provider Shira Bogdan Connelly Unavailable [phone] Allergies Allergen (clinical drug ingredient) Drug/Non Drug [...] Problem Status W/U Status Risk Notes Problem [id number] Encounter for screening for malignant neoplasm of colon (Z12.11) Active confirmed Problem [id number] Gallstones (K80.20) Active confirmed Problem [id number] RUQ pain (R10.11) Active confirmed Plan Of Treatment Future Test Test Name Order Date COLONOSCOPY 05/11/2018 Insurance Providers Payer Name Payer Address Payer Phone Subscriber Number Group Number Insured Name Patient Relationship to Insured Coverage Start Date Coverage End Date MEDICAID OF [employer] [address] [place] [id number] KUNAL RYAN Self - patient is the insured Medical (General) History Medical History History ICD Code Denies [place],DM,CVA,Lung disease,renal dise ase Neg. 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 Andre before 2012 Surgical History Surgery Date(Month/Year) BTL Breast biopsy-benign Aortic valve replacement and ascending a irwin aneurysm repair 2012
--- NOTE | 2024-10-20 13:18 | MHC.OFFVISCO ---
Intake Intake Visit Reasons: Anticoagulation Allergies lisinopril (LISINOPRIL) Allergy (Intermediate, Verified 10/20/24 13:11) rash/cough, palpitations Medication List - Last Reconciled 10/20/24 by Kianna Aviles RN amlodipine 5 mg PO DAILY aspirin 81 mg PO DAILY atorvastatin 80 mg PO BEDTIME blood sugar diagnostic (FreeStyle Lite Strips) As directed blood-glucose meter (FreeStyle [place] Lite kit) As directed calcium carbonate (Calcium Antacid) 200 mg PO DAILY cholecalciferol (vitamin D3) (Vitamin D3) 25 mcg PO DAILY cyanocobalamin (vitamin B-12) (Vitamin B-12) 500 mcg PO DAILY empagliflozin (Jardiance) 25 mg PO DAILY ferrous sulfate 325 mg PO DAILY lancets (TRUEplus Lancets) As directed metformin ER 500 mg PO QPM metoprolol tartrate 1 tab PO BID telmisartan (Micardis) 80 mg PO DAILY warfarin 5 mg See Protocol PO DIRECTED warfarin 2.5 mg See Protocol PO DIRECTED Nursing Note INR: 3.3 in therapeutic range Medications and supplements reviewed No changes in health, diet, medications, or supplements, Denies any signs and symptoms of bleeding or bruising or clotting. Bleeding, bruising, clotting discussed Nutritional guidance given Dose:same F/U INR: 3 weeks Patient verbalizes understanding of instructions given Anti-Coag Initial Assessment Social Hx Patient Tobacco Use Status: Never used Tobacco alcohol intake: former Alcohol intake frequency: does not drink Coding Level of Care Code Est Patient Level 1 Diagnoses Current use of anticoagulant therapy Z79.01 Results AMB INR Fingerstick AMB INR Fingerstick 3.3 Last Edit by Kianna Aviles RN on 10/20/24 13:20 manual entry - failed interfacing Assessment & Plan Assessment & Plan (1) Current use of anticoagulant therapy: Code(s): Z79.01 - [facility] (current) 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
[2024-10-20 13:37] LABS: Prothrombin Time Whole Bld POC 39.7 sec (11.1-13.5); ~PT, ~INR - Anti Coag Clinic 3.3 (0.9-1.1)
== END 2024-10-20 13:33 | disposition home or self-care (01) ==
LOC: HO.ACS 13:04
PROVIDERS: PCP Family Medicine; Visit Provider Internal Medicine Medical Oncology
DX: Z79.01 Long term (current) use of anticoagulants (principal)

== ENCOUNTER → 2024-10-20 13:04 | Outpatient (BNVA) | payer OTHER, SELFPAY | PROVIDERS: PCP Family Medicine; Visit Provider Internal Medicine Medical Oncology | DX: Z79.01 Long term (current) use of anticoagulants (principal) | CPT/HCPCS: 85610; 99211 ==

== ENCOUNTER 2024-11-10 13:00 | Outpatient (AMB) | payer OTHER, SELFPAY ==
[2024-11-10 13:10] LABS: Prothrombin Time Whole Bld POC 31.5 sec (11.1-13.5); ~PT, ~INR - Anti Coag Clinic 2.6 (0.9-1.1)
--- NOTE | 2024-11-10 13:13 | MHC.OFFVISCO ---
Intake Intake Visit Reasons: Anticoagulation Allergies lisinopril (LISINOPRIL) Allergy (Intermediate, Verified 10/20/24 13:11) rash/cough, palpitations Nursing Note INR: 2.6 in therapeutic range Medications and supplements reviewed No changes in health, diet, medications, or supplements, Denies any signs and symptoms of bleeding or bruising or clotting. Bleeding, bruising, clotting discussed Nutritional guidance given Dose: 5MG X 2 DAYS/ 2.5MG X 5 DAYS F/U INR: 3 WEEKS Patient verbalizes understanding of instructions given Anti-Coag Initial Assessment Social Hx Patient Tobacco Use Status: Never used Tobacco alcohol intake: former Alcohol intake frequency: does not drink Coding Level of Care Code Est Patient Level 1 Diagnoses Current use of anticoagulant therapy Z79.01 Results AMB INR Fingerstick AMB INR Fingerstick 2.6 Last Edit by Kianna Aviles RN on 11/10/24 13:11 MANUAL ENTRY Assessment & Plan Assessment & Plan (1) Current use of anticoagulant therapy: Code(s): Z79.01 - half-way (current) 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
--- OUTSIDE RECORDS SUMMARY | 2024-11-10 15:26 | XMS_ITS | Encounter Summary ---
Author Organization [facility] Address [address] [place] [address] Phone Care Team Providers Care Dry Cleaner Presser Name Role Phone Unavailable Primary Care Provider Unavailabl e Reason for Visit * Reason Comments Med Refill Encounter Details Date Type Department Care Team (Late Contact Info) Description 02/18/2021 Refill [facility] [address] [place] [address] Lyle Blancas MD [address] [facility] [place] [address] Social History Tobacco Use Types [...] Department Care Team (Late Contact Info) Description 01/16/2025 10:10 AM EST Office Visit [facility] [place], [address] [facility] [place] [address] Refugio Huston MD [address] [facility] [place] [address] documented as of this encounter Visit Diagnoses Not on filedocumented in this encounter
--- OUTSIDE RECORDS SUMMARY | 2024-11-10 15:26 | XMS_ITS | Patient Health Record ---
Author Organization [facility] Address [address] [place] [address] Care Team Providers Care Machine Edge Bander Name Role Phone Dominique Alcaraz MD Primary Care Provider Shira Bogdan Connelly Unavailable [phone] Allergies Allergen (clinical drug ingredient) Drug/Non Drug [...] Problem Status W/U Status Risk Notes Problem [id number] Encounter for screening for malignant neoplasm of colon (Z12.11) Active confirmed Problem [id number] Gallstones (K80.20) Active confirmed Problem 279781679 RUQ pain (R10.11) Active confirmed Plan Of Treatment Future Test Test Name Order Date COLONOSCOPY 05/11/2018 Insurance Providers Payer Name Payer Address Payer Phone Subscriber Number Group Number Insured Name Patient Relationship to Insured Coverage Start Date Coverage End Date MEDICAID OF [employer] [address] [place] [id number] KUNAL RYAN Self - patient is the insured Medical (General) History Medical History History ICD Code Denies PA,DM,CVA,Lung disease,renal dise ase Neg. 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 Andre before 2012 Surgical History Surgery Date(Month/Year) BTL Breast biopsy-benign Aortic valve replacement and ascending a irwin aneurysm repair 2012
--- OUTSIDE RECORDS SUMMARY | 2024-11-10 15:26 | XMS_ITS | Encounter Summary ---
Author Organization [facility] Address [address] [place] [address] Phone Care Team Providers Care Stud Sheep Farmer Name Role Phone Unavailable Primary Care Provider Unavailabl e Encounter Details Date Type Department Care Team (Late Contact Info) Description 10/27/2023 Documentation Only [facility] [address] [place] [address] Michelle Linares [address] [place] [address] Social History Tobacco Use Types [...] Visit [facility] [address] [place] [address] Refugio Huston MD [address] [place] [address] [place] [address] documented as of this encounter Visit Diagnoses Not on filedocumented in this encounter
--- OUTSIDE RECORDS SUMMARY | 2024-11-10 15:26 | XMS_ITS | Encounter Summary ---
Author Organization [facility] Address [address] [place] [address] Phone Care Team Providers Care Activities Counselor Name Role Phone Unavailable Primary Care Provider Unavailabl e Encounter Details Date Type Department Care Team (Late st Contact Info) Description 06/08/2022 Documentation Only [facility] [address] [place] [address] Cesia Perry PA [address] [address] Social History Tobacco Use Types [...] Visit [facility] [address] [place] [address] Refugio Huston MD [address] [facility] [place] [address] documented as of this encounter Visit Diagnoses Not on filedocumented in this encounter
--- OUTSIDE RECORDS SUMMARY | 2024-11-10 15:26 | XMS_ITS | Encounter Summary ---
Author Organization [facility] Address [address] [place] [address] Phone Care Team Providers Care Health Practice Manager Name Role Phone Unavailable Primary Care Provider Unavailabl e Encounter Details Date Type Department Care Team (Late Contact Info) Description 06/30/2024 Documentation Only [facility] [address] [place] [address] Priscilla Buitrago CO [address] [place] [address] Social History Tobacco Use Types [...] Visit [facility] [address] [place] [address] Refugio Huston MD [address] [place] [address] [place] [address] documented as of this encounter Visit Diagnoses Not on filedocumented in this encounter
--- OUTSIDE RECORDS SUMMARY | 2024-11-10 15:26 | XMS_ITS | Encounter Summary ---
Author Organization [facility] Address [address] [place] [address] Phone Care Team Providers Care Radio Engineer Name Role Phone Unavailable Primary Care Provider Unavailabl e Encounter Details Date Type Department Care Team (Late st Contact Info) Description 11/04/2021 Documentation Only [facility] [address] [facility] [place] [address] Cesia Perry PA [address] [facility] [address] [place] [address] Social History Tobacco Use Types [...] Visit [facility] [address] [facility] [place] [address] Refugio Huston MD [address] [facility] [place] [address] documented as of this encounter Visit Diagnoses Not on filedocumented in this encounter
--- OUTSIDE RECORDS SUMMARY | 2024-11-10 15:26 | XMS_ITS | Encounter Summary ---
Author Organization [facility] Address [address] [place] [address] Phone Care Team Providers Care Cake Wringer Name Role Phone Unavailable Primary Care Provider Unavailabl e Encounter Details Date Type Department Care Team (Late st Contact Info) Description 10/17/2021 Orders Only [facility] [address] [place] [address] Lyle Blancas MD [address] [place] [address] [place] [address] Stage 3a chronic kidney disease [...] [facility] [address] [place] [place] [address] Refugio Huston MD [address] [facility] [place] [address] Scheduled Orders Name Type Priority [...]
--- OUTSIDE RECORDS SUMMARY | 2024-11-10 15:27 | XMS_ITS | Encounter Summary ---
Author Organization [facility] Address [address] [place] [address] Phone Care Team Providers Care Plastic Boat Patcher Name Role Phone Unavailable Primary Care Provider Unavailabl e Encounter Details Date Type Department Care Team (Late st Contact Info) Description 03/12/2023 Documentation Only [facility] [address] [place] [address] Cesia Perry PA [address] [place] [address] Social History Tobacco Use Types [...] Visit [facility] [address] [place] [address] Refugio Huston MD [address] [facility] [place] [address] documented as of this encounter Visit Diagnoses Not on filedocumented in this encounter
--- OUTSIDE RECORDS SUMMARY | 2024-11-10 15:27 | XMS_ITS | Clinical Summary ---
Author Organization [facility], Address [address] [place] [address] [place] [address] Phone Care Team Providers Care Welder Experimental Name Role Phone Unavailable Primary Care Provider [...] with breakfast 30 tablet 11 5 Active Empagliflozin (Jardiance) 10 MG tablet Take 25 mg by mouth 1 (one) time each day 30 tablet 11 5 10/24/19 26 Active Empagliflozin (Jardiance) 10 MG tablet Take 25 mg by mouth 1 (one) time each day 30 tablet 11 4 10/24/19 25 Discontinu ed(Reorder (does not appear on AVS)) Active Problems Problem Noted Date Diagnosed Date Type 2 diabetes mellitus 11/04/2021 Chronic kidney disease, stage 2 (mild) 0 Atrophy of kidney 07/31/2019 Stage 3a chronic kidney disease 07/30/2019 Overview (03/04/2020): Update for Diagnosis Load Proteinuria 07/30/2019 Hypertension Resolved Problems Problem Noted Date Diagnosed Date Resolved Date Hyperlipidemia 02/05/2020 10/12/2020 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/2019 10/12/2020 Multiple renal cysts 07/30/2019 021 Renal disorder due to type 2 diabetes mellitus 07/30/2019 10/10/2024 Encounters Date Type Department Care Team Description 10/23/2024 Orders Only [facility] [address] [place] [address] Ro Yang MA 10/10/2024 2:20 PM EDT Office Visit [facility] [address] [place] [address] Refugio Huston MD Type 2 diabetes mellitus, not otherwise specified (HCC) (Primary Dx); Stage 3a chronic kidney disease (HCC) from Last 3 Months Immunizations Immunization Administration [...] Visit [facility], [address] [address] Refugio Huston MD [address] [facility] [place] [address] Health Maintenance Due Date Last Done Comments Breast Cancer Screening 1955 Colorectal Cancer Screening: Annual FOBT 12/24/2004 Colorectal Cancer Screening: Colonoscopy 12/24/2004 Colorectal Cancer Screening: Sigmoidoscopy 12/24/2004 Diabetes: Ophthalmology Exam 05/22/2019 Diabetes: Pedal Pulse Checked 05/22/2019 Diabetes: Sensory Foot Exam 05/22/2019 Diabetes: Visual Foot Exam 05/22/2019 Influenza Vaccine (#1) 2024 4, 12/04/2021, 01/11/2021, Additional history exists Diabetes: Hemoglobin A1C 10/31/2024 025, 01/24/2024, 06/09/2023, Additional history exists Pneumococcal Vaccine: 50+ Years Completed 11/04/2022, 01/04/2014, 10/11/2006 Pneumococcal Vaccine: Peds (0 to 5 Years) and At-Risk Patients (6 to 49 Years) Discontinued 11/04/2022, 01/04/2014, 10/11/2006 Hepatitis B Vaccine Aged Out 05/05/2023, 11/04/2022, 02/04/2022 No longer eligible based on patient's age to complete this topic Insurance Medicaid [place] [facility] Dual SNP ([id number])
== END 2024-11-10 13:17 | disposition home or self-care (01) ==
LOC: HO.ACS 13:01
PROVIDERS: PCP Family Medicine; Visit Provider Internal Medicine Medical Oncology
DX: Z79.01 Long term (current) use of anticoagulants (principal)

== ENCOUNTER → 2024-11-10 13:00 | Outpatient (BNVA) | payer OTHER, SELFPAY | PROVIDERS: PCP Family Medicine; Visit Provider Internal Medicine Medical Oncology | DX: Z95.2 Presence of prosthetic heart valve (principal); Z79.01 Long term (current) use of anticoagulants; Z51.81 Encounter for therapeutic drug level monitoring | CPT/HCPCS: 85610; 99211 ==

== ENCOUNTER 2024-12-01 13:03 | Outpatient (AMB) | payer OTHER, SELFPAY ==
[2024-12-01 13:11] LABS: Prothrombin Time Whole Bld POC 35.3 sec (11.1-13.5); ~PT, ~INR - Anti Coag Clinic 2.9 (0.9-1.1)
--- OUTSIDE RECORDS SUMMARY | 2024-12-01 13:25 | XMS_ITS | Encounter Summary ---
Author Organization [facility] Address [address] [place] [address] Phone Care Team Providers Care Dental Assistant Medical Assistant Name Role Phone Unavailable Primary Care Provider Unavailabl e Encounter Details Date Type Department Care Team (Late st Contact Info) Description 06/08/2022 Documentation Only [facility] [address] [address] Cesia Perry PA [address] [place] [address] Social History Tobacco Use Types [...] Visit [facility] [address] [place] [address] Refugio Huston MD [address] [place] [address] documented as of this encounter Visit Diagnoses Not on filedocumented in this encounter
--- OUTSIDE RECORDS SUMMARY | 2024-12-01 13:25 | XMS_ITS | Encounter Summary ---
Author Organization [facility] Address [address] [place] [address] Phone Care Team Providers Care Medical Office Specialist Name Role Phone Unavailable Primary Care Provider Unavailabl e Encounter Details Date Type Department Care Team (Late st Contact Info) Description 10/17/2021 Orders Only [facility] [address] [place] [address] Lyle Blancas MD [address] [place] [address] [place] [address] Stage 3a chronic kidney disease [...] [facility] [address] [place] [address] Refugio Huston MD [address] [facility] [place] [address] Scheduled Orders Name Type Priority [...] disorder due to type 2 diabetes mellitus <Unspecified DM Medication; Other diabetic kidney complication> (HCC) documented in this encounter
--- OUTSIDE RECORDS SUMMARY | 2024-12-01 13:26 | XMS_ITS | Encounter Summary ---
Author Organization [facility] Address [address] [place] [address] Phone Care Team Providers Care Glass Unloading Equipment Tender Name Role Phone Unavailable Primary Care Provider Unavailabl e Encounter Details Date Type Department Care Team (Late st Contact Info) Description 11/04/2021 Documentation Only [facility] [address] [place] [address] Cesia Perry PA [address] [place] [address] Social History Tobacco Use Types [...] Visit [facility] [address] [place] [address] Refugio Huston MD [address] [facility] [address] [place] [address] documented as of this encounter Visit Diagnoses Not on filedocumented in this encounter
--- OUTSIDE RECORDS SUMMARY | 2024-12-01 13:26 | XMS_ITS | Encounter Summary ---
Author Organization [facility] Address [address] [place] [address] Phone Care Team Providers Care Road Inspector Name Role Phone Unavailable Primary Care Provider Unavailabl e Reason for Visit * Reason Comments Med Refill Encounter Details Date Type Department Care Team (Late Contact Info) Description 02/18/2021 Refill [facility] [address] [place] [address] Lyle Blancas MD [address] [facility] [address] [place] [address] Social History Tobacco Use Types [...] Visit [facility] [place], [address] [place] [address] Refugio Huston MD [address] [place] [address] documented as of this encounter Visit Diagnoses Not on filedocumented in this encounter
--- OUTSIDE RECORDS SUMMARY | 2024-12-01 13:26 | XMS_ITS | Clinical Summary ---
Author Organization [facility] [place], Address [address] [place] [address] [place] [address] Phone Care Team Providers Care Hide Cleaner Name Role Phone Unavailable Primary Care [...] 30 tablet 11 5 10/24/19 26 Active Active Problems Problem Noted Date Diagnosed [...] Orders Only [facility] [address] [place] [address] Ro Yang MA 10/10/2024 2:20 PM EDT Office [facility] [address] [place] [address] Refugio Huston MD Type 2 diabetes mellitus, not otherwise specified (HCC) (Primary Dx); Stage 3a chronic kidney disease (HCC) from Last 3 Months Immunizations Immunization Administration Dates Next Due H1N1 Inj 11/19/2015 Hepatitis B 02/04/2022 Influenza Split 11/17/2011 Influenza, MDCK, PF, Quadrivalent 01/11/2021,11/2019 Influenza, Quadrivalent, Preservative Free 12/08,02/06/2019 Influenza, Quadrivalent, With Preservative 01/27,03/19/2015 Influenza, Unspecified 12/04/2021,01/04/2014,07/2010 Brain[employer] SARS-COV-2 05/15/2020 Pfizer SARS-COV-2 01/31/2021 Pneumococcal Conjugate [...] Visit [facility] [place], [address] [place] [address] Refugio Huston MD [address] [place] [address] [place] [id number] Health Maintenance Due Date Last Done Comments Breast Cancer Screening 1955 Colorectal Cancer Screening: Annual FOBT 12/24/2004 Colorectal Cancer Screening: Colonoscopy 12/24/2004 Colorectal Cancer Screening: Sigmoidoscopy 12/24/2004 Diabetes: Ophthalmology Exam 05/22/2019 Diabetes: Pedal Pulse Checked 05/22/2019 Diabetes: Sensory Foot Exam 05/22/2019 Diabetes: Visual Foot Exam 05/22/2019 Influenza Vaccine (#1) 2024 , 12/04/2021, 01/11/2021, Additional history exists Diabetes: Hemoglobin A1C 10/31/2024 025, 01/24/2024, 06/09/2023, Additional history exists Pneumococcal Vaccine: 50+ Years Completed 11/04/2022, 01/04/2014, 10/11/2006 Pneumococcal Vaccine: Peds (0 to 5 Years) and At-Risk Patients (6 to 49 Years) Discontinued 11/04/2022, 01/04/2014, 10/11/2006 Hepatitis B Vaccine Aged Out 05/05/2023, 11/04/2022, 02/04/2022 No longer eligible based on patient's age to complete this topic Insurance Medicaid [place] [facility] Dual SNP ([id number])
--- OUTSIDE RECORDS SUMMARY | 2024-12-01 13:26 | XMS_ITS | Encounter Summary ---
Author Organization [employer] Address [address] [facility] [address] [address] [place] [address] Care Team Providers Care Thermostat Maker Name Role Phone Dominique Alcaraz MD Primary Care Provider + [phone] Martina Wesley PharmD Unavailable [phone] Refugio Huston MD Unavailable +[phone] Chun Álvarez MD Unavailable [phone] Moses Dumont MD Unavailable [phone] Encounter Details Date Type Department Care Team (Late st Contact Info) Description 12/01/2024 Orders Only GENERIC EXTERNAL DATA DEPARTMENT Provider, Generic External Data Social History Tobacco Use Types Packs/Day Years Used Date Smoking Tobacco: Never Smokeless Tobacco: Never Depression Answer Date Recorded Patient Health Questionnaire-9 Score 0 11/20/2024 Patient Health Questionnaire-9 Score 0 11/20/2024 Last PHQ-9: Questionnaire Data Not on file 0 11/20/2024 Housing Stability Answer Date Recorded What is your housing situation today? I have jase li 11/20/[address] you li ve. Do you have problems with any of the following? None of the above 11/20/2024 Food Insecurity Answer Date Recorded Within the past 12 months, y ou worried that your food would run out before you got money to buy more: Never True 11/20/2024 Within the past 12 months,th e food you bought just didn't last and you didn't have enough money to get more: Never True Transportation Answer Date Recorded In the past 12 months, has l ack of transportation kept you from medical appts, meetings, work or from getting things needed for daily living? No 11/20/2024 Utilities Answer Date Recorded In the past 12 months, has t he electric, gas, oil or water company threatened to shut off services in your home? No 11/20/2024 Depression Answer Date Recorded Patient Health Questionnaire-2 Score 0 11/20/2024 Internet Access Answer Date Recorded Internet Access Q1 No 11/20/2024 Internet Access Q2 I do not want or need it 10/31 Comments Unknown Sex and Gender Information Value Date Recorded Sex Assigned at Female 12/29/2021 10:18 AM EDT Legal Sex Female 10:18 AM EDT Gender Identity Female 12/29/2021 10:18 AM EDT Sexual Orientation Straight 12/29/2021 10 :18 AM EDT documented as of this encounter Plan of Treatment Upcoming Encounters Date Type Department Care Team (Late st Contact Info) Description 12/19/2024 10:00 AM EDT Medication Management [facility] [address] [place] [address] Martina Wesley PharmD [address] [place] [address] documented as of this encounter Goals Goal Patient Goal Type Associated Problems Recent Progress Patient-Stated? Author Blood Pressure < 140/90 Blood Pressure 120/82(2024 11:56 AM EDT) No Jamaris-Maria Isabel Jaffesa, PharmD Hemoglobin A1c < 7 Result Component 6.9( 12:00 PM EDT) No Martina Tiwari, PharmD documented as of this encounter Procedures Procedure Name Priority Date/Time Associated Diagnosis Comments PROTHROMBIN TIME WHOLE BLD POC Routine 12/01/2024 1:10 PM EDT ~PT, ~INR - ANTI COAG CLINIC Routine 12/01/2024 1:10 PM EDT documented in this encounter Results * (ABNORMAL) PROTHROMBIN TIME WHOLE BLD POC (12/01/2024 1:10 PM EDT) Protime 35.3(H) 11.1 - 13.5 sec [facility] 12/01/2024 1:10 PM EDT 12/01/2024 1:11 PM EDT Generic External Data Provider LAB BLOOD ORDERAB LES Final Result Performing Organization Address [facility] Co de Phone Number [facility] [address] [place] [phone] * (ABNORMAL) ~PT, ~INR - ANTI COAG CLINIC (12/01/2024 1:10 PM EDT) Prothrombin Time INR 2.9(H) 0.9 - 1.1 [facility] Comment:METER #: [id number] TERNATIONAL NORMALIZED RATIO (INR) REFERENCE RANGES Reference RangeFor patients not on anticoagulant therapy: 0.9 - 1.1INR ranges for oral anticoagulanttherapy:For prevention and treatment of venous thrombosis and pulmonary embolism: 2.0 - 3.0For acute myocardial infarction with aspirin therapy: 2.0 - 3.0For acute myocardial infarction without aspirin therapy: 3.0 - 4.0For patients with mechanical prosthetic heart valves: 2.5 - 3.5 12/01/2024 1:10 PM EDT 12/01/2024 1:11 PM EDT us Generic External Data Provider LAB BLOOD ORDERAB LES Final Result Performing Organization Address [facility] de Phone Number [facility] [address] [place] [phone] documented in this encounter Visit Diagnoses Not on filedocumented in this encounter Additional Health Concerns Assessment Noted Time PHQ-9 Depression Total Score: 0 11/21/19 25 11:58 AM EDT documented as of this encounter Care Teams Thermostat Maker Relationship Specialty Start Date End Date Dominique Alcaraz MD [address] [place] [address] PCP - General Family Medicine 12/20/12 Martina Wesley, PharmD [address] [place] [address] Pharmacist Internal Medicine 03/12/22 Refugio Huston MD [address] [place] [address] Nephrology 05/01/24 Chun Álvarez MD [address] [place] [address] Hematology and Oncology 05/01/24 Moses Dumont MD [address] [place] [address] Cardiology 05/01/24 documented as of this encounter
--- OUTSIDE RECORDS SUMMARY | 2024-12-01 13:26 | XMS_ITS | Encounter Summary ---
Author Organization [employer] Address [address] [facility] 7t [place] [address] Care Team Providers Care Machine Straw Hat Presser Name Role Phone Dominique Alcaraz MD Primary Care Provider + [phone] Martina Wesley PharmD Unavailable [phone] Refugio Huston MD Unavailable [phone] Chun Álvarez MD Unavailable [phone] Moses Dumont MD Unavailable [phone] Encounter Details Date Type Department Care Team (Late st Contact Info) Description 12/08/2023 Orders Only [facility] [address] [place] [address] Provider, MD Christiano Social History Tobacco Use [...] Description 12/19/2024 10:00 AM EDT Medication Management [facility] [address] [place] [address] Piers-StillMaria Isabelsa, PharmD [address] [place] [address] documented as of this encounter Goals Goal Patient Goal Type Associated Problems Recent Progress Patient-Stated? Author Blood Pressure < 140/90 Blood Pressure 120/82(2024 11:56 AM EDT) No Piers-Gambl e, Martina, PharmD Hemoglobin A1c < 7 Result Component 6.9( 12:00 PM EDT) No Piers-Gambl e, Martina, PharmD documented as of this encounter Procedures Procedure Name Priority Date/Time Associated Diagnosis Comments TRANSTHORACIC ECHO (TTE) COMPLETE Routine 11/30/2023 3:34 PM EDT documented in this encounter Results * Transthoracic echo (TTE) complete (11/30/2023 3:34 PM EDT) us Historical Provider MD HERNANDEZ ECHO PROCEDURES Final Result documented in this encounter Visit Diagnoses Not on filedocumented in this encounter Additional Health Concerns Assessment Noted Time PHQ-9 Depression Total Score: 8 11/03/19 24 9:00 AM EDT documented as of this encounter Care Teams Machine Straw Hat Presser Relationship Specialty Start Date End Date Dominique Alcaraz MD [address] [place] [address] PCP - General Family Medicine 12/20/12 Martina Wesley, BetsyD [address] [place] [address] Pharmacist Internal Medicine 03/12/22 Refugio Huston MD [address] [place] [phone] Nephrology 05/01/24 Chun Álvarez MD [address] [place] [address] Hematology and Oncology 05/01/24 Moses Dumont MD [address] [place] [address] Cardiology 05/01/24 documented as of this encounter
--- OUTSIDE RECORDS SUMMARY | 2024-12-01 13:26 | XMS_ITS | Encounter Summary ---
Author Organization [facility] Address [address] [place] [address] Phone Care Team Providers Care Director Hematology Name Role Phone Unavailable Primary Care Provider Unavailabl e Encounter Details Date Type Department Care Team (Late Contact Info) Description 10/27/2023 Documentation Only [facility] [address] [place] [address] Michelle Linares [address] [place] [address] Social History Tobacco Use Types [...] Visit [facility] [address] [place] [address] Refugio Huston MD [address] [place] [address] [place] [address] documented as of this encounter Visit Diagnoses Not on filedocumented in this encounter
--- OUTSIDE RECORDS SUMMARY | 2024-12-01 13:26 | XMS_ITS | Encounter Summary ---
Author Organization [employer] Address [address] 7[address] [place] [address] Care Team Providers Care Potato Chip Sorter Name Role Phone Dominique Alcaraz MD Primary Care Provider + [phone] Martina Wesley PharmD Unavailable Refugio Huston MD Unavailable [phone] Chun Álvarez MD Unavailable [phone] Moses Dumont MD Unavailable [phone] Reason for Visit * Reason Comments Med Refill Encounter Details Date Type Department Care Team (Late st Contact Info) Description 03/17/2023 Refill [facility] [address] [place], [place] [phone] Dominique Alcaraz MD [address] [place], [place] [phone] Vitamin D deficiency; Stage 2 chronic kidney [...] Description 12/19/2024 10:00 AM EDT Medication Management [facility] [address] [place] [address] Martina Wesley, PharmD [address] [place] [address] documented as of this encounter Goals Goal Patient Goal Type Associated Problems Recent Progress Patient-Stated? Author Blood Pressure < 140/90 Blood Pressure 120/82(2024 11:56 AM EDT) No Piers-Gambl e, Martina, PharmD Hemoglobin A1c < 7 Result Component 6.9( 12:00 PM EDT) No Jamaris-Gambl e, Martina, PharmD documented as of this encounter Visit Diagnoses Diagnosis Vitamin D deficiency Stage 2 chronic kidney disease documented in this encounter Additional Health Concerns Assessment Noted Time PHQ-9 Depression Total Score: 0 07/09/19 23 3:56 PM EDT documented as of this encounter Care Teams Potato Chip Sorter Relationship Specialty Start Date End Date Dominique Alcaraz MD [address] [place] [address] PCP - General Family Medicine 12/20/12 JamarisMartina Larsen, PharmD [address] [place] [address] Pharmacist Internal Medicine 03/12/22 Refugio Huston MD [address] [place] [address] Nephrology 05/01/24 Chun Álvarez MD [address] [place] [address] Hematology and Oncology 05/01/24 Moses Dumont MD [address] [place] [address] Cardiology 05/01/24 documented as of this encounter
--- OUTSIDE RECORDS SUMMARY | 2024-12-01 13:26 | XMS_ITS | Encounter Summary ---
Author Organization [facility] Address [address] [place] [address] Phone Care Team Providers Care Service Promoter Salesperson Name Role Phone Unavailable Primary Care Provider Unavailabl e Encounter Details Date Type Department Care Team (Late st Contact Info) Description 03/12/2023 Documentation Only [facility] [address] [place] [address] Cesia Perry PA [address] [place] [address] Social History Tobacco Use Types [...] Visit [facility] [address] [place] [address] Refugio Huston MD [address] [place] [address] documented as of this encounter Visit Diagnoses Not on filedocumented in this encounter
--- OUTSIDE RECORDS SUMMARY | 2024-12-01 13:26 | XMS_ITS | Patient Health Record ---
Author Organization [facility] Address [address] [place] [address] Care Team Providers Care Managed Care Nurse Name Role Phone Dominique Alcaraz MD Primary Care Provider Shira Bogdan Connelly Unavailable [phone] Allergies Allergen (clinical drug ingredient) Drug/Non Drug [...] Problem Status W/U Status Risk Notes Problem [id number] Encounter for screening for malignant neoplasm of colon (Z12.11) Active confirmed Problem [id number] Gallstones (K80.20) Active confirmed Problem [id number] RUQ pain (R10.11) Active confirmed Plan Of Treatment Future Test Test Name Order Date COLONOSCOPY 05/11/2018 Insurance Providers Payer Name Payer Address Payer Phone Subscriber Number Group Number Insured Name Patient Relationship to Insured Coverage Start Date Coverage End Date MEDICAID OF [place] [address] [id number] KUNAL RYAN Self - patient is the insured Medical (General) History Medical History History ICD Code Denies AL,DM,CVA,Lung disease,renal dise ase Neg. 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 Andre before 2012 Surgical History Surgery Date(Month/Year) BTL Breast biopsy-benign Aortic valve replacement and ascending a irwin aneurysm repair 2012
--- OUTSIDE RECORDS SUMMARY | 2024-12-01 13:26 | XMS_ITS | Encounter Summary ---
Author Organization [employer] Address [address] 7[address] [place] [address] Care Team Providers Care Die Cast Technician Name Role Phone Dominique Alcaraz MD Primary Care Provider + [phone] Martina Wesley PharmD Unavailable Refugio Huston MD Unavailable [phone] Chun Álvarez MD Unavailable [phone] Moses Dumont MD Unavailable [phone] Reason for Visit * Reason Onset Date Comments Pre op 09/23/2023 Encounter Details Date Type Department Care Team (Late st Contact Info) Description 09/23/2023 Telephone [facility] [address] [place], [place] [phone] Dominique Alcaraz MD [address] [place], [place] [phone] Pre op Social History Tobacco Use Types [...] No Surgeon's name: mercedes mohan Facility name: [id number] [address] Surgeon's office number: [phone] Surgeon's office fax number: [phone] Contact name (person you spoke with): [place] Last office note from surgeon requested: No * Telephone Encounter - Bharti Fregoso - 09/23/2023 12:23 PM EDT Date of Surgery: right eye 11/15/23 and left eye 11/28 Surgical procedure being done: cataract surgery both eyes Type of anesthesia: local anesthesia Lab needed: No EKG: No Surgeon's name: mercedes mohan Facility name: [address], [place] [address] Surgeon's office number: [phone] Surgeon's office fax number: [phone] Contact name (person you spoke with): [place] Last office note from surgeon requested: No documented in this encounter Plan of Treatment Upcoming Encounters Date Type Department Care Team (Late st Contact Info) Description 12/19/2024 10:00 AM EDT Medication Management [facility] [address] [place] [address] Piers-Maria Isabel Stillsa, PharmD [address] [place] [address] documented as of this encounter Goals Goal [...] documented as of this encounter Care Teams Die Cast Technician Relationship Specialty Start Date End Date Dominique Alcaraz MD [address] [place], [place] PCP - General Family Medicine 12/20/12 Jamaris-Martina Still, PharmD [address] [place] [address] Pharmacist Internal Medicine 03/12/22 Refugio Huston MD [address] [place] [address] Nephrology 05/01/24 Chun Álvarez MD [address] [place] [address] Hematology and Oncology 05/01/24 Moses Dumont MD [address] [place] [address] Cardiology 05/01/24 documented as of this encounter
--- OUTSIDE RECORDS SUMMARY | 2024-12-01 13:26 | XMS_ITS | Encounter Summary ---
Author Organization [employer] Address [address] [place] [address] Care Team Providers Care Electrical Appliance Mechanic Name Role Phone Dominique Alcaraz MD Primary Care Provider Martina Wesley PharmD Unavailable [phone] Refugio Huston MD Unavailable [phone] Chun Álvarez MD Unavailable [phone] Moses Dumont MD Unavailable [phone] Encounter Details Date Type Department Care Team (Late st Contact Info) Description 05/01/2024 Orders Only [facility] [address] [place], [place] [phone] Dominique Alcaraz MD [address] [place], [place] [phone] Type 2 diabetes mellitus with chronic kidney [...] t he electric, gas, oil or water [employer] threatened to shut off services in your [...] Description 12/19/2024 10:00 AM EDT Medication Management [facility]INE [address] [place] [address] Martina Wesley PharmD [address] [place] [address] documented as of this encounter Goals Goal Patient Goal Type Associated Problems Recent Progress Patient-Stated? Author Blood Pressure < 140/90 Blood Pressure 120/82(2024 11:56 AM EDT) No Martina Tiwari PharmD Hemoglobin A1c < 7 Result Component 6.9( 12:00 PM EDT) No Martina Tiwari PharmD documented [...] EST) Protime 27.7(H) 11.1 - 13.5 sec [facility] 05/01/2024 1:32 PM EST 05/01/2024 1:34 PM EST us Generic External Data Provider LAB BLOOD ORDERAB LES Final Result Performing Organization Address [facility] de Phone Number [facility] [address] [place] [address] [phone] * (ABNORMAL) ~PT, ~INR - ANTI COAG CLINIC (05/01/2024 1:32 PM EST) Prothrombin Time INR 2.3(H) 0.9 - 1.1 [facility] Comment:METER #: [id number] TERNATIONAL NORMALIZED RATIO (INR) REFERENCE RANGES Reference [...] ORDERAB LES Final Result Performing Organization Address [facility] Co de Phone Number [facility] [address] [place] [phone] documented in this encounter Visit Diagnoses Diagnosis Type 2 diabetes mellitus with chronic kidney disease, without long-term current use of insulin, unspecified CKD stage (HCC)- Primary Atypical ductal hyperplasia of breast Other specified benign mammary dysplasias documented in this encounter Additional Health Concerns Assessment Noted Time PHQ-9 Depression Total Score: 8 11/03/19 24 9:00 AM EDT documented as of this encounter Care Teams Electrical Appliance Mechanic Relationship Specialty Start Date End Date Dominique Alcaraz MD [address] [place] [address] PCP - General Family Medicine 12/20/12 Martina Wesley, BetsyD [address] [place] [address] Pharmacist Internal Medicine 03/12/22 Refugio Huston MD [address] [place] [address] Nephrology 05/01/24 Chun Álvarez MD [address] [place] [address] Hematology and Oncology 05/01/24 Moses Dumont MD [address] [place] [address] Cardiology 05/01/24 documented as of this encounter
--- OUTSIDE RECORDS SUMMARY | 2024-12-01 13:26 | XMS_ITS | Encounter Summary ---
Author Organization [facility] Address [address] [place] [address] Phone Care Team Providers Care Knotting Machine Operator Portable Name Role Phone Unavailable Primary Care Provider Unavailabl e Encounter Details Date Type Department Care Team (Late Contact Info) Description 06/30/2024 Documentation Only [facility] [address] [place] [address] Priscilla Buitrago [place] [address] [place] [address] Social History Tobacco Use Types [...] Visit [facility] [address] [place] [address] Refugio Huston MD [address] [place] [address] [place] [address] documented as of this encounter Visit Diagnoses Not on filedocumented in this encounter
--- OUTSIDE RECORDS SUMMARY | 2024-12-01 13:26 | XMS_ITS | Encounter Summary ---
Author Organization [employer] Address [address] [place] [address] Care Team Providers Care Central Sterile Technician Name Role Phone Dominique Alcaraz MD Primary Care Provider + [phone] Martina Wesley PharmD Unavailable [phone] Refugio Huston MD Unavailable [phone] Chun Álvarez MD Unavailable [phone] Moses Dumont MD Unavailable [phone] Encounter Details Date Type Department Care Team (Late st Contact Info) Description 05/04/2024 Abstract [facility] [address] [place] [address] Sunitha Singleton [place] Social History Tobacco Use [...] Description 12/19/2024 10:00 AM EDT Medication Management [facility] [address] [place] [address] JamarisMartina Larsen, PharmD [address] [place] [address] documented as of this encounter Goals Goal [...] documented as of this encounter Care Teams Central Sterile Technician Relationship Specialty Start Date End Date Dominique Alcaraz MD [address] [place] [address] PCP - General Family Medicine 12/20/12 Martina Wesley, BetsyD [address] [place] [address] Pharmacist Internal Medicine 03/12/22 Refugio Huston MD [address] [place] [address] Nephrology 05/01/24 Chun Álvarez MD [address] [place] [address] Hematology and Oncology 05/01/24 Moses Dumont MD [address] [place] [address] Cardiology 05/01/24 documented as of this encounter
--- OUTSIDE RECORDS SUMMARY | 2024-12-01 13:26 | XMS_ITS | Encounter Summary ---
Author Organization [employer] Address [address] [place] [address] Care Team Providers Care Aquatics Manager Name Role Phone Dominique Alcaraz MD Primary Care Provider + [phone] Martina Wesley PharmD Unavailable [phone] Refugio Huston MD Unavailable [phone] Chun Álvarez MD Unavailable [phone] Moses Dumont MD Unavailable [phone] Reason for Visit * Reason Onset Date Comments Paperwork/Forms 11/30/2024 Encounter Details Date Type Department Care Team (Late st Contact Info) Description 11/30/2024 Telephone [facility] [address] [place], [place] [phone] Nelda Banks, RN [address] [place] [address] Paperwork/Forms Social History Tobacco Use Types Packs/Day Years [...] Telephone Encounter - Nelda Banks RN - 11/30/2024 10:56 AM EDT Received fax from [facility] requesting PCP signature on INR SO. [place] PCP's desk. Pending signature. documented in this encounter Plan of Treatment Upcoming Encounters Date Type Department Care Team (Late st Contact Info) Description 12/19/2024 10:00 AM EDT Medication Management [facility] [address] [place] [address] Martina Wesley PharmD [address] [place] [address] documented as of this encounter Goals Goal Patient Goal Type Associated Problems Recent Progress Patient-Stated? Author Blood Pressure < 140/90 Blood Pressure 120/82(2024 11:56 AM EDT) No Martina Tiwari PharmD Hemoglobin A1c < 7 Result Component 6.9( 5 12:00 PM EDT) No Martina Tiwari, PharmD documented as of this encounter Visit Diagnoses Not on filedocumented in this encounter Additional Health Concerns Assessment Noted Time PHQ-9 Depression Total Score: 0 11/21/19 25 11:58 AM EDT documented as of this encounter Care Teams Aquatics Manager Relationship Specialty Start Date End Date Dominique Alcaraz MD [address] [place] [address] PCP - General Family Medicine 12/20/12 Martina Wesley, PharmD [address] [place] [address] Pharmacist Internal Medicine 03/12/22 Refugio Huston MD [address] [place] [address] Nephrology 05/01/24 Chun Álvarez MD [address] [place] [address] Hematology and Oncology 05/01/24 Moses Dumont MD [address] [place] [address] Cardiology 05/01/24 documented as of this encounter
--- OUTSIDE RECORDS SUMMARY | 2024-12-01 13:26 | XMS_ITS | Encounter Summary ---
Author Organization [employer] Address [address] [facility] [place] [address] Care Team Providers Care Felting Machine Operator Name Role Phone Dominique Alcaraz MD Primary Care Provider Martina Wesley PharmD Unavailable [phone] Refugio Huston MD Unavailable [phone] Chun Álvarez MD Unavailable Moses Dumont MD Unavailable [phone] Reason for Visit * Reason Comments Med Refill Encounter Details Date Type Department Care Team (Late st Contact Info) Description 08/14/[address] [facility] MEDICINE 230 [place], [place] [phone] Martina Wesley, PharmD 230 [place] [address] Primary hypertension Social History Tobacco Use Types [...] encounter Miscellaneous Notes * Telephone Encounter - Martina Wesley PharmD - 08/15/2024 1:36 PM EDT Per cardiology office, patient has follow up 08/24/24 where restart of telmisartan will be discussedhowever to hold on restart at this time documented in this encounter Plan of Treatment Upcoming Encounters Date Type Department Care Team (Late st Contact Info) Description 12/19/2024 10:00 AM EDT Medication Management [facility] MED[facility]INE 230 [place] [address] Martina Wesley PharmD [address] [place] [address] documented as of this encounter Goals Goal Patient Goal Type Associated Problems Recent Progress Patient-Stated? Author Blood Pressure < 140/90 Blood Pressure 120/82(2024 11:56 AM EDT) Martina Barros PharmD Hemoglobin A1c < 7 Result Component 6.9( 5 12:00 PM EDT) No Martina Tiwari PharmD documented as of this encounter Visit Diagnoses Diagnosis Primary hypertension Unspecified essential hypertension documented in this encounter Additional Health Concerns Assessment Noted Time PHQ-9 Depression Total Score: 8 11/03/19 24 9:00 AM EDT documented as of this encounter Care Teams Felting Machine Operator Relationship Specialty Start Date End Date Dominique Alcaraz MD [address] [place] [address] PCP - General Family Medicine 12/20/12 Martina Wesley PharmD [address] [place] [address] Pharmacist Internal Medicine 03/12/22 Refugio Huston MD [address] [place] [address] Nephrology 05/01/24 Chun Álvarez MD [address] [place] [address] Hematology and Oncology 05/01/24 Moses Dumont MD [address] [place] [address] Cardiology 05/01/24 documented as of this encounter
--- OUTSIDE RECORDS SUMMARY | 2024-12-01 13:26 | XMS_ITS | Encounter Summary ---
Author Organization [employer] Address [address] [address] [facility] [address] [place] [address] Care Team Providers Care Industrial Technician Name Role Phone Dominique Alcaraz MD Primary Care Provider + [phone] Martina Wesley PharmD Unavailable [phone] Refugio Huston MD Unavailable [phone] Chun Álvarez MD Unavailable [phone] Moses Dumont MD Unavailable [phone] Reason for Visit * Reason Comments Med Refill Encounter Details Date Type Department Care Team (Late st Contact Info) Description 05/07/2023 Refill [facility] MEDICINE [address] [place], [place] [phone] Dominique Alcaraz MD [address] [place], [place] [phone] Type 2 diabetes mellitus without complication, 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 application spec insulin use ([facility]) Social History Tobacco Use Types Packs/Day [...] Description 12/19/2024 10:00 AM EDT Medication Management [facility]INE [address] [place] [address] JamarisMartina Larsen, PharmD [address] [place] [address] documented as of this encounter Goals Goal Patient Goal Type Associated Problems Recent Progress Patient-Stated? Author Blood Pressure < 140/90 Blood Pressure 120/82(2024 11:56 AM EDT) No Piers-Poonaml marj, Martina, PharmD Hemoglobin A1c < 7 Result Component 6.9( 12:00 PM EDT) No Jamaris-Gambl marj, Martina, PharmD documented as of this encounter Visit Diagnoses Diagnosis Type 2 diabetes mellitus without complication, 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 application spec insulin use documented in this encounter Additional Health Concerns Assessment Noted Time PHQ-9 Depression Total Score: 0 07/09/19 23 3:56 PM EDT documented as of this encounter Care Teams Industrial Technician Relationship Specialty Start Date End Date Dominique Alcaraz MD [address] [place] [address] PCP - General Family Medicine 12/20/12 Martina Wesley, Irma [address] [place] [address] Pharmacist Internal Medicine 03/12/22 Refugio Huston MD [address] [place] [address] Nephrology 05/01/24 Chun Álvarez MD [address] [place] [address] Hematology and Oncology 05/01/24 Moses Dumont MD [address] [place] [address] Cardiology 05/01/24 documented as of this encounter
--- OUTSIDE RECORDS SUMMARY | 2024-12-01 13:26 | XMS_ITS | Encounter Summary ---
Author Organization [employer] Address [address] [facility] [facility] [address] [place] [address] Care Team Providers Care Blending Kettle Tender Name Role Phone Dominique Alcaraz MD Primary Care Provider Martina Wesley PharmD Unavailable Refugio Huston MD Unavailable [phone] Chun Álvarez MD Unavailable [phone] Moses Dumont MD Unavailable [phone] Reason for Visit * Reason Comments Med Refill Encounter Details Date Type Department Care Team (Late st Contact Info) Description 08/18/2024 Refill [facility] 230 [place], [place] [phone] Martina Wesley, PharmD 230 [place] [address] Primary hypertension Social History Tobacco Use Types [...] Description 12/19/2024 10:00 AM EDT Medication Management [facility] [address] [place] [address] Martina Wesley PharmD 230 [place] [address] documented as of this encounter Goals Goal Patient Goal Type Associated Problems Recent Progress Patient-Stated? Author Blood Pressure < 140/90 Blood Pressure 120/82(2024 11:56 AM EDT) No Piers-Gambl marj, Martina, PharmD Hemoglobin A1c < 7 Result Component 6.9( 12:00 PM EDT) No Piers-Gambl eMaria Isabelsa, PharmD documented as of this encounter Visit Diagnoses Diagnosis Primary hypertension Unspecified essential hypertension documented in this encounter Additional Health Concerns Assessment Noted Time PHQ-9 Depression Total Score: 8 11/03/19 24 9:00 AM EDT documented as of this encounter Care Teams Blending Kettle Tender Relationship Specialty Start Date End Date Dominique Alcaraz MD 230 [place] [address] PCP - General Family Medicine 12/20/12 Martina Wesley, Irma [address] [place] [address] Pharmacist Internal Medicine 03/12/22 Refugio Huston MD [address] [place] [address] Nephrology 05/01/24 Chun Álvarez MD [address] [place] [address] Hematology and Oncology 05/01/24 Moses Dumont MD [address] [place] [address] Cardiology 05/01/24 documented as of this encounter
--- OUTSIDE RECORDS SUMMARY | 2024-12-01 13:26 | XMS_ITS | Clinical Summary ---
Author Organization [employer] Address [address] [place] [address] Care Team Providers Care Numerical Control Drill Press Operator Name Role Phone Dominique Alcaraz MD Primary Care Provider + [phone] Martina Weslye PharmD Unavailable Refugio Huston MD Unavailable [phone] Chun Álvarez MD Unavailable [phone] Moses Dumont MD Unavailable [phone] Allergies Active Allergy Reactions Criticality Noted Date Comments Lisinopril Palpitations,Shortne ss of breath High 05/22/2010 Other reaction(s): palpitations, SOB Medications aspirin 81 MG EC tablet Take 1 tablet by mouth in the morning. 12/14/19 13 Active Ferrous Sulfate (iron) 325 (65 Fe) MG tablet TAKE 1 TABLET BY MOUTH ONCE DAILY WITH BREAKFAST 06/10/19 23 Active glucose blood (FREESTYLE LITE) test stripIndications: Type 2 diabetes mellitus with chronic kidney disease, without long-term current use of insulin, unspecified CKD stage (HCC) TEST BLOOD SUGAR TWICE DAILY 100 each 11 09/17/19 24 Active cyanocobalamin (Vitamin B-12) 500 MCG tablet Take 500 mcg by mouth Once per day. PT PURCHASING OTC Active Jardiance 25 MGIndications:Typ e 2 diabetes mellitus with chronic kidney disease, without long-term current use of insulin, unspecified CKD stage (HCC) Take 25 mg by mouth Once per day. 10/27/19 24 Active Magnesium 500 MG capsule PT PURCHASING OTC Active telmisartan (MIcarDIS) 80 MG tabletIndications :Primary hypertension Take 1 tablet by mouth once daily 90 tablet 1 01/25/20 24 Active cholecalciferol (D3-1000) 25 MCG (1000 UT) capsuleIndication s:Vitamin D deficiency TAKE 1 CAPSULE BY MOUTH EVERY DAY 30 capsule 11 03/31/19 25 Active metoprolol tartrate (Lopressor) 50 MG tabletIndications :Primary hypertension TAKE 1 TABLET BY MOUTH TWICE DAILY 60 tablet 11 04/25/19 25 Active TRUEplus Lancets 33G miscIndications:T ype 2 diabetes mellitus with chronic kidney disease, without long-term current use of insulin, unspecified CKD stage (HCC) TEST BLOOD SUGAR TWICE DAILY 100 each 11 05/02/19 25 Active amoxicillin (Amoxil) 500 MG capsule TAKE 4 CAPSULES BY MOUTH ONCE BEFORE SURGERY 4 capsule 2 06/29/19 25 Active fish oil-omega-3 fatty acids 1000 MG capsuleIndication s:Hyperlipidemia, unspecified hyperlipidemia type Take 2 capsules (2 g) by mouth 2 times daily. 180 capsule 3 08/08/19 25 Active metFORMIN XR (Glucophage-XR) 500 MG 24 hr tabletIndications :Type 2 diabetes mellitus with chronic kidney disease, without long-term current use of insulin, unspecified CKD stage (HCC) TAKE 1 TABLET BY MOUTH EVERY DAY 90 tablet 08/15/19 25 Active atorvastatin (Lipitor) 80 MG tabletIndications :Hyperlipidemia, unspecified hyperlipidemia type TAKE 1 TABLET BY MOUTH ONCE DAILY 90 tablet 3 08/15/19 25 Active warfarin (Coumadin) 2.5 MG tabletIndications :History of aortic valve repair TAKE DIRECTED BY COUMADIN CLINIC 60 tablet 3 08/26/19 25 Active warfarin (Coumadin) 5 MG tabletIndications :History of aortic valve repair,Paroxysmal atrial fibrillation (CMS/HCC) (HCC) TAKE DIRECTED BY COUMADIN CLINIC 30 tablet 3 08/26/19 25 Active amLODIPine (Norvasc) 5 MG tabletIndications :Hypertension, unspecified type Take 1 tablet (5 mg) by mouth Once per day. 90 tablet 3 09/21/19 25 Active Calcium Antacid 500 MG chewable tabletIndications :Osteopenia of multiple sites CHEW 1 TABLET BY MOUTH TWICE DAILY 60 tablet 11 11/25/19 25 Active calcium carbonate (Tums) 500 MG chewable tabletIndications :Osteopenia of multiple sites Chew 1 tablet (500 mg) 2 times daily. 60 tablet 11 11/03/19 24 2024 Discontinued Active Problems Patient Care Coordination No te Formatting of this note migh t be different from the original. Enrolled in [facility] DM and [facility] HTN clinic with Betsy JamesonD, [facility] Audit Intern: Jaci Equipment Installation Professional Agency: [employer] Problem Noted Date Diagnosed Date Cardiac risk [...] return. Osteopenia of multiple sites 04/16/2023 Overview (10/03/2024): -DEXA 04/15/23 Osteopenia based on the lowest [...] -Ca+D supplements 1200 mg po qd/800 MIU 11/03/23-seen by Dr. Álvarez 10/02/24 raloxifene, to decrease risk of breast cancer as well as for the osteopenia, several times. However she has declined it again and again. Assessment & Plan (11/03/2023 9:33 AM EDT): [...] plan will repeat DEXA in 2 years Other specified health status 11/04/2022 Overview (11/03/2023): -next physical exam due after 11/05/2023 -eye care facilitated by Dr. Cano last done 06/18/2022 -dental home is [facility] -Health care proxy 11/03/23 Assessment & Plan (11/20/2024 12:16 PM EDT): Assessment & Plan (11/03/2023 9:32 AM EDT): -next physical exam due after 11/05/2023 -eye care facilitated by Dr. Cano last done 06/18/2022 -dental home is [facility] -Health care proxy 11/03/23 Assessment & Plan (11/04/2022 9:18 AM EDT): -next physical exam due after 11/05/2023 -eye care facilitated by Dr. Cano last done 05/2022 -dental home is [facility] Low back pain without sciatica 11/04/2022 Overview (11/04/2022): PT referral done 11/04/2022. Assessment & Plan (11/04/2022 9:23 AM EDT): PT referral done 11/04/2022. Pre-op evaluation 08/05/2022 Overview (11/03/2023): For cataract surgery at [facility] with Dr. Gusman. Pt with mechanical valve on anticoagulation. Recommend continue anticoagulation. Will refer to cardiology to evaluate, will likely continue Coumadin but will ask about ASA. Cataract extraction is one of the only status low risk procedures where anticoagulation is not interrupted. Addendum: TC placed to [facility] to inquire on PCP question regarding if pt should hold aspirin prior to upcoming cataract surgery on 11/15/23. Per the cardiology office the pt has not been seen since November of 2022. The office is going to call the pt to try and schedule an appt before upcoming surgery on 11/15/23. After this appointment the glass fitter will be able to determine what medications should or can be held. Assessment & Plan (11/03/2023 9:26 AM EDT): For cataract surgery at [facility] with Dr. Gusman. 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 Pt was started on both Aspirin and Lipitor. No longer on Plavix. She was on on Digoxin 250 mcg but this was DISCONTINUED in Dec 2012 due to sinus pauses noted at cardiac rehab and her Metoprolol was increased to 25 mg po TID, she is now on aspirin and Coumadin. Last note from cardiac surgery is dated 12/08/12. Her glass fitter is Dr. Moses Dumont, note from 07/2024 reviewed -PT NEEDS ANTIBIOTIC PROPHLAXIS PRIOR TO DENTAL WORK - RX AMOXICILLIN 2G PRIOR TO DENTAL WORK -Seen by Dr. Dumont 07/2024 recommending follow up 1 year -note from Patient followed at [facility] with Dr. John Dumont, DO. 07/2024 reveiwed Assessment & Plan (11/20/2024 12:16 PM EDT): Assessment & Plan (05/05/2023 10:53 AM EST): [...] was treated medically as if she was post-MA. Pt was started on both Aspirin and Lipitor. No longer on Plavix. She was on on Digoxin 250 mcg but this was DISCONTINUED in Dec 2012 due to sinus pauses noted at cardiac rehab and her Metoprolol was increased to 25 mg po TID, she is now on aspirin and Coumadin. Last note from cardiac surgery is dated 12/08/12. Her glass fitter is Dr. Moses Dumont, last visit 05/2018 [...] was treated medically as if she was post-MA. Pt was started on both Aspirin and Lipitor. No longer on Plavix. She was on on Digoxin 250 mcg but this was DISCONTINUED in Dec 2012 due to sinus pauses noted at cardiac rehab and her Metoprolol was increased to 25 mg po TID, she is now on aspirin and Coumadin. Last note from cardiac surgery is dated 12/08/12. Her glass fitter is Dr. 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 Last note dated 10/03/2013. Follow up annually for mammo and office visit. - [facility] no longer accepting pt's insurance so [place] [facility] [place] [address] Pryor. -Last seen by oncology with Dr. Álvarez on 10/02/24 where it was again discussed option of taking raloxifene, to decrease risk of breast cancer as well as for the osteopenia. She has declined again. 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 Last note dated 10/03/2013. Follow up annually for mammo and office visit. - [facility] no longer accepting pt's insurance so now [place] [facility] [place] [address] Pryor. -Last seen by oncology on 08/25/2019. 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 Last note dated 10/03/2013. Follow up annually for mammo and office visit. - [facility] no longer accepting pt's insurance so now [place] [facility] [place] [address] Pryor. -Last seen by oncology on 08/25/2019. -Recent Mammo 04/11/21 BI-RADS 2 benign Atrial fibrillation (CMS/HCC) 03/26/2013 Overview (08/30/2024): - continue choric anticoagulation INR goal 2.5-3.5 due to heart valve repair -note from Patient followed at [facility] with Dr. John Dumont DO. Note from 08/24/24 reviewed. Assessment & Plan (11/20/2024 12:16 PM EDT): Assessment & Plan (03/05/2022 12:04 PM EST): - continue choric anticoagulation INR goal 2.5-3.5 due to heart valve repair Type 2 diabetes mellitus 04/25/2012 Overview (08/14/2024): Diabetes is controlled. Lab Results Component Value Date HGBA1C 7.2 (A) 07/31/2024 HGBA1C 6.8 (A) 01/24/2024 HGBA1C 7.6 (A) 11/03/2023 Lab Results Component Value Date CREATININE 1.15 08/07/2024 EGFR 47 08/07/2024 MICROALBCREU 299.7 (H) 08/07/2024 MICROALBCREU 316.8 (H) 10/20/2023 LDLCHOLCAL 103 (H) 08/07/2024 -Haile/Arb: telmisartan 80mg -Statin therapy: atorvastatin 80mg -Diabetic eye exam: 05/2022 -Diabetic foot exam: 11/03/23 -Continue lifestyle modifications -Continue current medications -Metformin XR 500mg -Jardiance 25mg daily, prescribed by nephrology Assessment & Plan (11/20/2024 12:16 PM EDT): Assessment & Plan (11/03/2023 9:26 AM EDT): [...] daily, prescribed by nephrology Hyperlipidemia 04/25/2012 Overview (08/07/2024): Lab Results Component Value Date CHOL 154 07/30/2023 CHOL 132 06/05/2022 TRIG 239 (H) 07/30/2023 TRIG 225 06/05/2022 TRIG 211 (H) 02/18/2022 HDL 37 (L) 07/30/2023 HDL 29 06/05/2022 LDLCHOLCAL 70 07/30/2023 LDLCHOLCAL 58 06/05/2022 -continue lifestyle modification -continue atorvastatin 80mg daily -elevated triglycerides not improved with lifestyle changes, omega 3 added 08/07/24, recheck in 3 months. Assessment & Plan (11/20/2024 12:16 PM EDT): Assessment & Plan (11/03/2023 9:34 AM EDT): Lab Results Component Value Date CHOL 154 07/30/2023 CHOL 132 06/05/2022 TRIG 239 (H) 07/30/2023 TRIG 225 06/05/2022 TRIG 211 (H) 02/18/2022 HDL 37 (L) 07/30/2023 HDL 29 06/05/2022 LDLCHOLCAL 70 07/30/2023 LDLCHOLCAL 58 06/05/2022 -continue lifestyle modification -continue atorvastatin 80mg daily -ordered lipid panel 11/03/23 -offered Cactus-3s, bu wants to trial lifestyle changes. Will [...] modifications -Continue current medications Assessment & Plan (11/20/2024 12:16 PM EDT): Assessment & Plan (05/05/2023 11:56 AM EST): [...] Encounters Date Type Department Care Team Description 12/01/2024 Orders Only GENERIC EXTERNAL DATA DEPARTMENT Provider, Generic External Data 11/30/[address] [address] Nelda Banks RN Paperwork/Forms 11/23/[address] [address] Dominique Alcaraz MD Osteopenia of multiple sites 11/20/2024 11:15 AM EDT Office Visit [address] [address] Dominique Alcaraz MD Hypertension, unspecified type (Primary Dx); Hyperlipidemia, unspecified hyperlipidemia type; History of aortic valve repair; Paroxysmal atrial fibrillation (CMS/HCC); Type 2 diabetes mellitus with chronic kidney disease, without long-term current use of insulin, unspecified CKD stage (CMS/HCC); Stage 3a chronic kidney disease ([facility]/HCC); Atypical ductal hyperplasia of breast; Other specified health status; Encounter for immunization 11/20/2024 Travel 11/17/2024 Telephone [facility] [address], [place] [phone] Ginna Jaimes [place] 11/10/2024 Orders Only GENERIC EXTERNAL DATA DEPARTMENT Provider, Generic External Data 10/20/2024 Orders Only GENERIC EXTERNAL DATA DEPARTMENT Provider, Generic External Data 10/17/2024 Telephone [facility] [address] [place] [address] Dominique Alcaraz MD Chart Prep 09/29/2024 Orders Only GENERIC EXTERNAL DATA DEPARTMENT Provider, Generic External Data 09/20/2024 Travel 09/08/2024 Orders Only GENERIC EXTERNAL DATA DEPARTMENT Provider, Generic External Data 09/04/2024 Telephone [facility] [address] [place] [address] Dominique Alcaraz MD Appointment Request from Last 3 Months Immunizations Immunization Administration Dates Next Due Hep B, adult 05/05/2023,11/04/2022,02/04/2022 Influenza High-dose Quadriva lent Preservative Free 12/04/2021 Influenza Injectable Quadriv alant Preservative Free IIV4 MDCK 01/11/2021 Influenza injectable quadriv alent IIV4 with preservative 01/27/2018,03/19/2015 Influenza injectable quadriv alent preservative free 12/09/2019,02/06/2019 Influenza, High Dose Seasona l, Preservative Free 11/20/2024,11/23/2023 Influenza, IIV3, injectable 01/04/2014, 1 Influenza, Split (incl. katia fied surface antigen) 11/17/2011 [place] SARS-CoV-2 Vaccination 05/15/2020 Novel [id number] 11/19/2015 Pfizer Covid-19 Vaccine 12+ 01/31/2021 Pfizer Covid-19 Vaccine 12+ Bivalent 03/12/2022 Pneumococcal Conjugate PCV 13 01/04/2014 Pneumococcal Conjugate PCV 20 11/04/2022 Pneumococcal Polysaccharide PPSV23 10/11/2006 RSV Bivalent 11/23/2023 TD (adult), 2 Lf tetanus tox oid, preservative free, adsorbed 10/11/2006 Tdap 11/20/2024,01/04/2014 Zoster, Recombinant 06/05/2021, 2,04/03/2021,04/03 Social History Tobacco [...] housing situation today? I have jase guillermo 11/20/[address] you li [...] Sign Reading Time Taken Comments Blood Pressure 120/82 11/20/2024 11:56 AM EDT Pulse 71 11/20/2024 11:56 AM EDT Temperature 37.2 C (98.9 F) 11/20/2024 11:56 AM EDT Respiratory Rate 20 11/20/2024 11:56 AM EDT Oxygen Saturation 98% 11/20/2024 11:56 AM EDT Inhaled Oxygen Concentration - - Weight 59.7 kg (131 lb 9.6 oz) 11/20/2024 11:56 AM EDT Height 157.5 cm (5' 2 ) 11/03/2023 8:58 AM EDT Body Mass Index 24.07 11/03/2023 8:58 AM EDT Plan of Treatment Upcoming Encounters Date Type Department Care Team (Late st Contact Info) Description 12/19/2024 10:00 AM EDT Medication Management [facility] [address], [place] [phone] Martina Wesley, PharmD [address] [place] [phone] Health Maintenance Due Date Last Done Comments CT Colonography 1955 FIT DNA/Cologuard 1955 FIT 1955 FOBT 1955 Sigmoidoscopy 1955 Eye Exam 06/18/2024 06/18/2022 COVID-19 Vaccine ( season) 2024 03/12/2022, 01/31/2021, 05/15/2020 Dental Oral Exam 11/03/2024 05/02/2024, 10/2023, 09/30/2018, Additional history exists Dental Prophylaxis 11/03/2024 05/02/2024, 0 10/26/2023, 03/09/2023 Dental X-Ray: Bitewings 05/03/2025 05/03/19 25, 03/09/2023, 09/30/2018, Additional history exists Diabetes: Hemoglobin A1C 05/20/2025 025, 07/31/2024, 01/24/2024, Additional history exists Lipid Panel 08/30/2025 08/30/2024, 06/0 10/2024, 07/30/2023, Additional history exists Alcohol/Substance Use Screening 11/20/2025 11/20/2024 Depression Screening 11/20/2025 11/20/2024, 11/21/19 Diabetes: Foot Exam 11/20/2025 11/20/2024, 11/20/2024, 11/20/2024, Additional history exists SDOH Screening 11/20/2025 11/20/2024 Tobacco Screening 11/20/2025 11/20/2024 Dental X-Ray: Full Mouth 03/10/2026 024, 09/30/2018, 05/17/2014 Mammogram 05/04/2026 05/04/2024, 04/02, 04/15/2023, Additional history exists Colonoscopy 09/03/2028 09/03/2018 Colorectal Cancer Screening 09/03/2028 DTaP/Tdap/Td Vaccines (3 - Td or Tdap) 11/20/2034 11/20/2024, 01/04/2014, 10/11/2006 Zoster Vaccines Completed 06/05/2021, 04/0 08/2021, 04/03/2021, Additional history exists Pneumococcal Vaccine: 50+ Years Completed 11/04/2022, 01/04/2014, 10/11/2006 Hepatitis B Vaccines Completed 05/05/2023, 11/04/2022, 02/04/2022 RSV Patients and Patients Aged 60 years or older Completed 11/23/2023 Hepatitis C Screening Completed 08/07/2024 Influenza Vaccine Completed 11/20/2024, , 12/04/2021, Additional history exists HIB Vaccines Aged Out No longer eligi [...] 12:00 PM EDT) No Martina Tiwari PharmD Procedures Procedure Name Priority Date/Time Associated Diagnosis Comments PROTHROMBIN TIME WHOLE BLD POC Routine 12/01/2024 1:10 PM EDT ~PT, ~INR - ANTI COAG CLINIC Routine 12/01/2024 1:10 PM EDT POCT GLYCOSYLATED HEMOGLOBIN (HGB A1C) Routine 11/20/2024 12:00 PM EDT Type 2 diabetes mellitus with chronic kidney disease, without long-term current use of insulin, unspecified CKD stage (CMS/HCC) POCT GLUCOSE Routine 11/20/2024 11:59 AM EDT Type 2 diabetes mellitus with chronic kidney disease, without long-term current use of insulin, unspecified CKD stage (CMS/HCC) PROTHROMBIN TIME WHOLE BLD POC Routine 11/10/2024 1:08 PM EDT ~PT, ~INR - ANTI COAG CLINIC Routine 11/10/2024 1:08 PM EDT PROTHROMBIN TIME WHOLE BLD POC Routine 10/20/2024 1:14 PM EDT ~PT, ~INR - ANTI COAG CLINIC Routine 10/20/2024 1:14 PM EDT PROTHROMBIN TIME WHOLE BLD POC Routine 09/29/2024 1:11 PM EDT ~PT, ~INR - ANTI COAG CLINIC Routine 09/29/2024 1:11 PM EDT PROTHROMBIN TIME WHOLE BLD POC Routine 09/08/2024 1:09 PM EDT ~PT, ~INR - ANTI COAG CLINIC Routine 09/08/2024 1:09 PM EDT LIPID PANEL, STANDARD Routine 08/30/2024 8:13 AM EDT Hyperlipidemia, unspecified hyperlipidemia type HEPATITIS C AB W/REFL TO HCV RNA, QN, PCR Routine 08/07/2024 8:03 AM EDT Encounter for hepatitis C screening test for low risk patient HM MAMMOGRAPHY Routine 05/04/2024 11:40 AM EST PROPHYLAXIS - ADULT Routine 05/02/2024 1 :00 PM EST BITEWINGS - 4 RADIOGRAPHIC IMAGES Routine 05/02/2024 1:00 PM EST PERIODIC ORAL EVALUATION - ESTABLISHED PATIENT Routine 05/02/2024 1:00 PM EST INTRAORAL - COMPLETE SERIES OF RADIOGRAPHIC IMAGES Routine 03/09/2023 1:00 PM EST DIABETES EYE EXAM Routine 06/18/2022 COLONOSCOPY Routine 09/03/2018 12:11 PM EDT from Last 3 Months or Most Recently Relevant to Health Maintenance Results * (ABNORMAL) PROTHROMBIN TIME WHOLE BLD POC (12/01/2024 1:10 PM EDT) Only the most recent of5 resultswithin the time period is included. Pathologist [facility] Protime 35.3(H) 11.1 - 13.5 sec [facility] 12/01/2024 1:10 PM EDT 12/01/2024 1:11 PM EDT us Generic External Data Provider LAB BLOOD ORDERAB LES Final Result [facility] [address] [place] [phone] * (ABNORMAL) ~PT, ~INR - ANTI COAG CLINIC (12/01/2024 1:10 PM EDT) Only the most recent of5 resultswithin the time period is included. Prothrombin Time INR 2.9(H) 0.9 - 1.1 [facility] Comment:METER #: [id number] TERNATIONAL NORMALIZED RATIO (INR) REFERENCE RANGES Reference [...] Provider LAB BLOOD ORDERAB LES Final Result [facility] [address] [place] [phone] * (ABNORMAL) POCT glycosylated hemoglobin (Hgb A1c) (11/20/2024 12:00 PM EDT) Pathologist [facility] Hemoglobin A1C 6.9(A) 4.0 - 5.7 % QC Media Lot # [id number] Lot# Expiration Date 492, Blood Capillary blood specimen / Unknown 11/20/2024 12:00 PM EDT Dominique Alcaraz MD POINT OF CARE TEST ENTER/E DIT ORDERABLES Final Result * POCT glucose manually resulted (11/20/2024 11:59 AM EDT) Pathologist [facility] Glucose Blood, POC 108 60 - 200 mg/dL QC Media Lot # [id number] Lot# Expiration Date 835, Blood Capillary blood specimen / Unknown 11/20/2024 11:59 AM EDT Dominique Alcaraz MD POINT OF CARE TEST ENTER/E DIT ORDERABLES Final Result * (ABNORMAL) Lipid Panel, Standard (08/30/2024 8:13 AM EDT) Triglycerides 270(H) <150 mg/dL [facility] Comment:Desirable Triglyceri de: less than 150 mg/dLBorderline High Triglyceride 150-199 mg/dLHigh Triglyceride: 200-499 mg/dLVery High Triglyceride: greater than or equal to 5OO mg/dL Cholesterol 128 <200 mg/dL [facility] Comment:Desirable Cholestero l: less than 200 mg/dLBorderline High Cholesterol: 200-239 mg/dLHigh Cholesterol: greater than 239 mg/dL LDL Cholesterol Calculated 41 <100 mg/dL [facility] Comment:Desirable LDL: less than 100 mg/dLNear Optimal/Above Optimal LDL: 110- 129 mg/dLBorderline High LDL: 130-159 mg/dLHigh LDL: 160-189 mg/dLVery High LDL: greater than or equal to 190 mg/dL HDL Cholesterol 33(L) >40 mg/dL [facility] Comment:Desirable HDL: great er than 40 mg/dL Note: This HDL assay may give artificially low results in patients with liver disease. Blood Venous blood specimen / Unknown 08/30/2024 8:13 AM EDT 08/30/2024 11:51 AM EDT Dominique Alcaraz MD LAB BLOOD ORDERABLES Final Result Performing Organization Address City/[facility] Co de Phone Number [facility] [address] [place] [phone] * Hepatitis C Antibody with Reflex to HCV, RNA, Quantitative, Real-Time PCR (08/07/2024 8:03 AM EDT) Hepatitis C Antibody Nonreactive Nonreactive [facility] Comment:Antibodies to HCV no t detected; does not exclude early acuteHCV infection. Blood Venous blood specimen / Unknown 08/07/2024 8:03 AM EDT 08/07/2024 11:11 AM EDT Dominique Alcaraz MD LAB BLOOD ORDERABLES Final Result [facility] [address] [place] [phone] * Mammography (05/04/2024 11:40 AM EST) Mammogram BIRADS 2 Normal, Abnormal, BIRADS 1 , BIRADS 2 Comment:follow up one year Anatomical Region Laterality Modality Other Historical Provider HEALTH MAINTENANCE Final Result * Diabetes Eye Exam (06/18/2022) Eye Exam Normal Normal Historical Provider HEALTH MAINTENANCE Final Result * Colonoscopy (09/03/2018 12:11 PM EDT) Historical Provider HEALTH MAINTENANCE Final Result from Last 3 Months or Most Recently Relevant to Health Maintenance Insurance [facility] [employer] OPTIONS (O D-SNP) ADDIS DON [id number] DENTAL [facility]LY [facility] Advance Directives Documents on File Type Date Recorded 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
--- OUTSIDE RECORDS SUMMARY | 2024-12-01 13:26 | XMS_ITS | Encounter Summary ---
Author Organization [employer] Address [address] [facility] 7t [place] [address] Care Team Providers Care Activity Aid Name Role Phone Dominique Alcaraz MD Primary Care Provider [phone] Martina Wesley PharmD Unavailable Refugio Huston MD Unavailable Chun Álvarez MD Unavailable [phone] Moses Dumont MD Unavailable [phone] Encounter Details Date Type Department Care Team (Late st Contact Info) Description 10/30/2022 Abstract [facility] [address] [place] [address] Dominique Alcaraz MD [address] [place] [address] Social History Tobacco Use Types Packs/Day Years [...] Department Care Team (Late Contact Info) Description 12/19/2024 10:00 AM EDT Medication Management [facility] [address] [place] [address] Martina Wesley, PharmD [address] [place] [address] documented as of this encounter Goals Goal Patient Goal Type Associated Problems Recent Progress Patient-Stated? Author Blood Pressure < 140/90 Blood Pressure 120/82(2024 11:56 AM EDT) No Jamaris-Maria Isabel Jaffesa, PharmD Hemoglobin A1c < 7 Result Component 6.9( 12:00 PM EDT) No Jamaris-Poonaml Martina mcmahan, PharmD documented as of this encounter Visit Diagnoses Not on filedocumented in this encounter Additional Health Concerns Assessment Noted Time PHQ-9 Depression Total Score: 0 07/09/19 3:56 PM EDT documented as of this encounter Care Teams Activity Aid Relationship Specialty Start Date End Date Dominique Alcaraz MD [address] [place] [address] PCP - General Family Medicine 12/20/12 Martina Wesley, PharmD [address] [place] [address] Pharmacist Internal Medicine 03/12/22 Refugio Huston MD [address] [place] [address] Nephrology 05/01/24 Chun Álvarez MD [address] [place] [address] Hematology and Oncology 05/01/24 Moses Dumont MD [address] [place] [address] Cardiology 05/01/24 documented as of this encounter
--- NOTE | 2024-12-01 13:28 | MHC.OFFVISCO ---
Intake Intake Visit Reasons: Anticoagulation Allergies lisinopril (LISINOPRIL) Allergy (Intermediate, Verified 12/01/24 13:06) rash/cough, palpitations Medication List - Last Reconciled 12/01/24 by Kianna Aviles RN amlodipine 5 mg PO DAILY aspirin 81 mg PO DAILY atorvastatin 80 mg PO BEDTIME blood sugar diagnostic (FreeStyle Lite Strips) As directed blood-glucose meter (FreeStyle [place] Lite kit) As directed calcium carbonate (Calcium Antacid) 200 mg PO DAILY cholecalciferol (vitamin D3) (Vitamin D3) 25 mcg PO DAILY cyanocobalamin (vitamin B-12) (Vitamin B-12) 500 mcg PO DAILY empagliflozin (Jardiance) 25 mg PO DAILY ferrous sulfate 325 mg PO DAILY lancets (TRUEplus Lancets) As directed metformin ER 500 mg PO QPM metoprolol tartrate 1 tab PO BID telmisartan (Micardis) 80 mg PO DAILY warfarin 5 mg See Protocol PO DIRECTED warfarin 2.5 mg See Protocol PO DIRECTED Nursing Note INR: 2,9 in therapeutic range Medications and supplements reviewed No changes in health, diet, medications, or supplements, Denies any signs and symptoms of bleeding or bruising or clotting. Bleeding, bruising, clotting discussed Nutritional guidance given Dose:Keep same dose 5mg x 2 days/ 2.5mg x 5days F/U INR: 3 weeks Patient verbalizes understanding of instructions given Anti-Coag Initial Assessment Social Hx Patient Tobacco Use Status: Never used Tobacco alcohol intake: former Alcohol intake frequency: does not drink Coding Level of Care Code Est Patient Level 1 Diagnoses Current use of anticoagulant therapy Z79.01 Results AMB INR Fingerstick AMB INR Fingerstick 2.9 Last Edit by Kianna Aviles RN on 12/01/24 13:11 MANUAL ENTRY Assessment & Plan Assessment & Plan (1) Current use of anticoagulant therapy: Code(s): Z79.01 - watermelon inspector (current) 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
== END 2024-12-01 13:29 | disposition home or self-care (01) ==
LOC: HO.ACS 13:03
PROVIDERS: PCP Family Medicine; Visit Provider Internal Medicine Medical Oncology
DX: Z79.01 Long term (current) use of anticoagulants (principal)

== ENCOUNTER → 2024-12-01 13:03 | Outpatient (BNVA) | payer OTHER, SELFPAY | PROVIDERS: PCP Family Medicine; Visit Provider Internal Medicine Medical Oncology | DX: Z95.2 Presence of prosthetic heart valve (principal); Z79.01 Long term (current) use of anticoagulants; Z51.81 Encounter for therapeutic drug level monitoring | CPT/HCPCS: 85610; 99211 ==

== ENCOUNTER 2024-12-22 12:58 | Outpatient (AMB) | payer OTHER, SELFPAY ==
[2024-12-22 13:12] LABS: Prothrombin Time Whole Bld POC 40.6 sec (11.1-13.5); ~PT, ~INR - Anti Coag Clinic 3.4 (0.9-1.1)
--- NOTE | 2024-12-22 13:14 | MHC.OFFVISCO ---
Intake Intake Visit Reasons: Anticoagulation Allergies lisinopril (LISINOPRIL) Allergy (Intermediate, Verified 12/22/24 13:07) rash/cough, palpitations Medication List - Last Reconciled 12/22/24 by Kianna Aviles RN amlodipine 5 mg PO DAILY aspirin 81 mg PO DAILY atorvastatin 80 mg PO BEDTIME blood sugar diagnostic (FreeStyle Lite Strips) As directed blood-glucose meter (FreeStyle [place] Lite kit) As directed calcium carbonate (Calcium Antacid) 200 mg PO DAILY cholecalciferol (vitamin D3) (Vitamin D3) 25 mcg PO DAILY cyanocobalamin (vitamin B-12) (Vitamin B-12) 500 mcg PO DAILY empagliflozin (Jardiance) 25 mg PO DAILY ferrous sulfate 325 mg PO DAILY lancets (TRUEplus Lancets) As directed metformin ER 500 mg PO QPM metoprolol tartrate 1 tab PO BID telmisartan (Micardis) 80 mg PO DAILY warfarin 5 mg See Protocol PO DIRECTED warfarin 2.5 mg See Protocol PO DIRECTED Nursing Note INR: 3.4 in therapeutic range Medications and supplements reviewed No changes in health, diet, medications, or supplements, Denies any signs and symptoms of bleeding or bruising or clotting. Bleeding, bruising, clotting discussed Nutritional guidance given Dose: THE SAME 5MG X 2 DAYS/ 2.5MG X 5 DAYS F/U INR: 3 WEEKS Patient verbalizes understanding of instructions given Anti-Coag Initial Assessment Social Hx Patient Tobacco Use Status: Never used Tobacco alcohol intake: former Alcohol intake frequency: does not drink Coding Level of Care Code Est Patient Level 1 Diagnoses Current use of anticoagulant therapy Z79.01 Assessment & Plan Assessment & Plan (1) Current use of anticoagulant therapy: Code(s): Z79.01 - 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
--- OUTSIDE RECORDS SUMMARY | 2024-12-22 14:58 | XMS_ITS | Encounter Summary ---
Author Organization [facility] Address [address] [place] [address] Phone Care Team Providers Care Early Head Start Teacher Name Role Phone Unavailable Primary Care Provider Unavailabl e Reason for Visit * Reason Comments Med Refill Encounter Details Date Type Department Care Team (Late Contact Info) Description 02/18/2021 Refill [facility] [address] [place] [address] Lyle Blancas MD [address] [facility] [place] [address] Social History Tobacco Use Types [...] Visit [facility] [place], [address] [facility] [place] [address] Refugio Huston MD [address] [facility] [place] [address] documented as of this encounter Visit Diagnoses Not on filedocumented in this encounter
--- OUTSIDE RECORDS SUMMARY | 2024-12-22 14:58 | XMS_ITS | Patient Health Record ---
Author Organization [facility] Address [address] [place] [address] Care Team Providers Care Commercial Photographer Name Role Phone Dominique Alcaraz MD Primary Care Provider Shira Bogdan Connelly Unavailable [phone] Allergies Allergen (clinical drug ingredient) Drug/Non Drug Allergy documented on EMR Reaction Allergy Type Onset Date Status lisinopril Lisinopril Unknown Drug Allergy Activ e Reason For Referral No Information Medications Medication SIG (Take, Route, Frequency, Duration) Notes Start Date End Date Status Atorvastatin Calcium 40 MG 1 tablet Oral ly Once a day; Duration: 30 day(s) Active Telmisartan 40 MG 1 tablet Orally Once a day; Duration: 30 day(s) Active Metoprolol Tartrate 50 MG 1 tablet with food Orally Twice a day; Duration: 30 day(s) Active Warfarin Sodium 5 MG 1 tablet Orally Onc e a day; Duration: 30 day(s) Active Aspir-81 81 MG 1 tablet Orally Once a day; Duration: 30 day(s) Active MiraLax (colon prep) 8.3 ounce ((238) grams mixed with Gatorade or Crystal Light orally begin at 5:00 p.m. the day before the procedure; Duration: 1 day 07/24/2018 Active Dulcolax (colon prep) 5 MG take at 3:00 p.m and 7:00p.m. Orally two tablets twice a day for one day; Duration: 1 day 07/24/2018 Active Immunizations Vaccine Route [...] Problem Status W/U Status Risk Notes Problem Screening for malignant neoplasm of colon (890678821) Encounter for screening for malignant neoplasm of colon (Z12.11) Active confirmed Problem Gallstones (128380312) Gallstones (K80.20) Active confirmed Problem Right upper quadrant pain (746032157) RUQ pain (R10.11) Active confirmed Plan Of Treatment Future Test Test Name Order Date COLONOSCOPY 05/11/2018 Insurance Providers Payer Name Payer Address Payer Phone Subscriber Number Group Number Insured Name Patient Relationship to Insured Coverage Start Date Coverage End Date [facility] [address] [place] [address] [id number] KUNAL RYAN Self - patient is the insured Medical (General) History Medical History History ICD Code Denies ND,DM,CVA,Lung disease,renal dise ase Neg. 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 Andre before 2012 Surgical History Surgery Date(Month/Year) BTL Breast biopsy-benign Aortic valve replacement and ascending a irwin aneurysm repair 2012
--- OUTSIDE RECORDS SUMMARY | 2024-12-22 14:58 | XMS_ITS | Clinical Summary ---
Author Organization [facility], Address [address] [place] [address] [place] [address] Phone Care Team Providers Care Room Service Waiter/Waitress Name Role Phone Unavailable Primary Care Provider [...] Orders Only [facility] [address] [place] [address] Ro Yang MA 10/10/2024 2:20 PM EDT Office Visit [facility] [address] [place] [address] Refugio Huston MD Type 2 diabetes mellitus, not otherwise specified (HCC) (Primary Dx); Stage 3a chronic kidney disease (HCC) from Last 3 Months Immunizations Immunization Administration Dates Next Due H1N1 Inj 11/19/2015 Hepatitis B 02/04/2022 Influenza Split 11/17/2011 Influenza, MDCK, PF, Quadrivalent 01/11/2021,11/2019 Influenza, Quadrivalent, Preservative Free 12/08,02/06/2019 Influenza, Quadrivalent, With Preservative 01/27,03/19/2015 Influenza, Unspecified 12/04/2021,01/04/2014,07/2010 [email or web address] SARS-COV-2 05/15/2020 Pfizer SARS-COV-2 01/31/2021 Pneumococcal Conjugate [...] Visit [facility], [address] [place] [address] Refugio Huston MD [address] [place] [address] [place] [id number] Health Maintenance Due Date Last Done Comments [...] to complete this topic Insurance Medicaid [place] [facility] One Care Dual SNP ([id number])
--- OUTSIDE RECORDS SUMMARY | 2024-12-22 14:58 | XMS_ITS | Encounter Summary ---
Author Organization [facility] Address [address] [place] [address] Phone Care Team Providers Care Pad Machine Feeder Name Role Phone Unavailable Primary Care Provider Unavailabl e Encounter Details Date Type Department Care Team (Late st Contact Info) Description 11/04/2021 Documentation Only [facility] [address] [facility] [place] [address] Cesia Perry PA [address] [facility] [address] [place] [address] Social History Tobacco Use Types [...] [facility] [address] [facility] [place] [address] Refugio Huston MD [address] [facility] [place] [address] documented as of this encounter Visit Diagnoses Not on filedocumented in this encounter
--- OUTSIDE RECORDS SUMMARY | 2024-12-22 14:58 | XMS_ITS | Encounter Summary ---
Author Organization [facility] Address [address] [place] [address] Phone Care Team Providers Care Sales Audit Clerk Name Role Phone Unavailable Primary Care Provider Unavailabl e Encounter Details Date Type Department Care Team (Late Contact Info) Description 06/30/2024 Documentation Only [facility] [address] [place] [address] Priscilla Buitrago [place] [address] [place] [address] Social History Tobacco Use Types [...] [facility] [address] [place] [address] Refugio Huston MD [address] [place] [address] [place] [address] documented as of this encounter Visit Diagnoses Not on filedocumented in this encounter
--- OUTSIDE RECORDS SUMMARY | 2024-12-22 14:58 | XMS_ITS | Encounter Summary ---
Author Organization [facility] Address [address] [place] [address] Phone Care Team Providers Care Resident Caregiver Name Role Phone Unavailable Primary Care Provider Unavailabl e Encounter Details Date Type Department Care Team (Late st Contact Info) Description 06/08/2022 Documentation Only [facility] [address] [facility] [place] [address] Cesia Perry PA [address] [facility] [place] [place] [address] Social History Tobacco Use Types [...] Visit [facility] [address] [place] [address] Refugio Huston MD [address] [facility] [place] [address] documented as of this encounter Visit Diagnoses Not on filedocumented in this encounter
--- OUTSIDE RECORDS SUMMARY | 2024-12-22 14:58 | XMS_ITS | Encounter Summary ---
Author Organization [facility] Address [address] [place] [address] Phone Care Team Providers Care Fixture Repairer Fabricator Name Role Phone Unavailable Primary Care Provider Unavailabl e Encounter Details Date Type Department Care Team (Late st Contact Info) Description 10/17/2021 Orders Only [facility] [address] [place] [address] Lyle Blancas MD [address] [place] [address] [place] [address] Stage 3a chronic kidney disease [...] Visit [facility] [address] [place] [address] Refugio Huston MD [address] [place] [address] [place] [address] Scheduled Orders Name Type Priority [...]
--- OUTSIDE RECORDS SUMMARY | 2024-12-22 14:58 | XMS_ITS | Encounter Summary ---
Author Organization [employer] Address [address] [facility] [facility] [address] 7[address] [place] [address] Care Team Providers Care Firmware Manager Name Role Phone Dominique Alcaraz MD Primary Care Provider + [phone] Martina Wesley PharmD Unavailable [phone] Refugio Huston MD Unavailable [phone] Chun Álvarez MD Unavailable [phone] Moses Dumont MD Unavailable [phone] Encounter Details Date Type Department Care Team (Late st Contact Info) Description 12/22/2024 Orders Only GENERIC EXTERNAL DATA DEPARTMENT Provider, [...] Care Team (Late st Contact Info) Description 12/27/2024 10:30 AM EDT Medication Management [facility] [address] [place] [address] Martina Wesley PharmD [address] [place] [address] documented as of this encounter Goals Goal [...] Comments PROTHROMBIN TIME WHOLE BLD POC Routine 12/22/2024 1:10 PM EDT ~PT, ~INR - ANTI COAG CLINIC Routine 12/22/2024 1:10 PM EDT documented in this encounter Results * (ABNORMAL) PROTHROMBIN TIME WHOLE BLD POC (12/22/2024 1:10 PM EDT) Protime 40.6(H) 11.1 - 13.5 sec [facility] 12/22/2024 1:10 PM EDT 12/22/2024 1:12 PM EDT Generic External Data Provider LAB BLOOD ORDERAB LES Final Result Performing Organization Address [facility] Co de Phone Number [facility] [address] [place] [address] [phone] * (ABNORMAL) ~PT, ~INR - ANTI COAG CLINIC (12/22/2024 1:10 PM EDT) Prothrombin Time INR 3.4(H) 0.9 - 1.1 [facility] Comment:METER #: [id number] TERNATIONAL NORMALIZED RATIO (INR) REFERENCE RANGES Reference RangeFor patients not on anticoagulant therapy: 0.9 - 1.1INR ranges for oral anticoagulanttherapy:For prevention and treatment of venous thrombosis and pulmonary embolism: 2.0 - 3.0For acute myocardial infarction with aspirin therapy: 2.0 - 3.0For acute myocardial infarction without aspirin therapy: 3.0 - 4.0For patients with mechanical prosthetic heart valves: 2.5 - 3.5 12/22/2024 1:10 PM EDT 12/22/2024 1:12 PM EDT us Generic External Data Provider LAB BLOOD ORDERAB LES Final Result Performing Organization Address [facility] de Phone Number [facility] [address] [place] [phone] documented in this encounter Visit Diagnoses Not on filedocumented in this encounter Additional Health Concerns Assessment Noted Time PHQ-9 Depression Total Score: 0 11/21/19 25 11:58 AM EDT documented as of this encounter Care Teams Firmware Manager Relationship Specialty Start Date End Date Dominique Alcaraz MD [address] [place] [address] PCP - General Family Medicine 12/20/12 Martina Wesley, PharmD [address] [place] [address] Pharmacist Internal Medicine 03/12/22 Refugio Huston MD [address] [place] [address] Nephrology 05/01/24 Chun Álvarez MD [address] [place] [address] Hematology and Oncology 05/01/24 Moses Dumont MD [address] [place] [address] Cardiology 05/01/24 documented as of this encounter
--- OUTSIDE RECORDS SUMMARY | 2024-12-22 14:58 | XMS_ITS | Encounter Summary ---
Author Organization [employer] Address [address] [facility] 7t [place] [address] Care Team Providers Care Logistics Supply Officer Name Role Phone Dominique Alcaraz MD Primary Care Provider [phone] Martina Wesley PharmD Unavailable [phone] Refugio Huston MD Unavailable Chun Álvarez MD Unavailable [phone] Moses Dumont MD Unavailable [phone] Encounter Details Date Type Department Care Team (Late st Contact Info) Description 10/30/2022 Abstract [facility]INE [address] [place] [address] Dominique Alcaraz MD [address] [place] [address] Social History Tobacco Use Types Packs/Day Years [...] Department Care Team (Late Contact Info) Description 12/27/2024 10:30 AM EDT Medication Management [facility]INE [address] [place] [address] Martina Wesley, PharmD [address] [place] [address] documented as of this encounter Goals Goal Patient Goal Type Associated Problems Recent Progress Patient-Stated? Author Blood Pressure < 140/90 Blood Pressure 120/82(2024 11:56 AM EDT) No Jamaris-Maria Isaebl Jaffesa, PharmD Hemoglobin A1c < 7 Result Component 6.9( 12:00 PM EDT) No Jamaris-Poonaml [place]ina mcmahan, PharmD documented as of this encounter Visit Diagnoses Not on filedocumented in this encounter Additional Health Concerns Assessment Noted Time PHQ-9 Depression Total Score: 0 07/09/19 3:56 PM EDT documented as of this encounter Care Teams Logistics Supply Officer Relationship Specialty Start Date End Date Dominique Alcaraz MD [address] [place] [address] PCP - General Family Medicine 12/20/12 Martina Wesley, PharmD [address] [place] [address] Pharmacist Internal Medicine 03/12/22 Refugio Huston MD [address] [place] [address] Nephrology 05/01/24 Chun Álvarez MD [address] [place] [address] Hematology and Oncology 05/01/24 Moses Dumont MD [address] [place] [address] Cardiology 05/01/24 documented as of this encounter
--- OUTSIDE RECORDS SUMMARY | 2024-12-22 14:58 | XMS_ITS | Encounter Summary ---
Author Organization [facility] Address [address] [place] [address] Phone Care Team Providers Care Php Mysql Web Developer Name Role Phone Unavailable Primary Care Provider Unavailabl e Encounter Details Date Type Department Care Team (Late st Contact Info) Description 03/12/2023 Documentation Only [facility] [address] [facility] [place] [address] Cesia Perry PA [address] [facility] [place] [address] Social History Tobacco Use Types [...] Visit [facility] [address] [facility] [place] [address] Refugio Huston MD [address] [facility] [place] [address] documented as of this encounter Visit Diagnoses Not on filedocumented in this encounter
--- OUTSIDE RECORDS SUMMARY | 2024-12-22 14:58 | XMS_ITS | Encounter Summary ---
Author Organization [facility] Address [address] [place] [address] Phone Care Team Providers Care Biodiesel Production Technician Name Role Phone Unavailable Primary Care Provider Unavailabl e Encounter Details Date Type Department Care Team (Late Contact Info) Description 10/27/2023 Documentation Only [facility] [address] [place] [address] Michelle Linares [address] [place] [address] Social History Tobacco Use Types [...] [facility] [address] [place] [address] Refugio Huston MD [address] [place] [address] [place] [address] documented as of this encounter Visit Diagnoses Not on filedocumented in this encounter
--- OUTSIDE RECORDS SUMMARY | 2024-12-22 14:59 | XMS_ITS | Encounter Summary ---
Author Organization [employer] Address [address] 7[address] [place] [address] Care Team Providers Care Brick Kiln Worker Name Role Phone Dominique Alcaraz MD Primary Care Provider + [phone] Martina Wesley PharmD Unavailable Refugio Huston MD Unavailable [phone] Chun Álvarez MD Unavailable [phone] Moses Dumont MD Unavailable [phone] Reason for Visit * Reason Onset Date Comments Pre op 09/23/2023 Encounter Details Date Type Department Care Team (Late st Contact Info) Description 09/23/2023 Telephone [facility] MEDICINE [address] [place], [place] [phone] Dominique Alcaraz MD [address] [place], [place] [phone] Pre op Social History Tobacco Use Types [...] No Surgeon's name: mercedes mohan Facility name: [id number] [address] Surgeon's office number: [phone] Surgeon's office fax number: [phone] Contact name (person you spoke with): [place]i Last office note from surgeon requested: No * Telephone Encounter - Bharti Fregoso - 09/23/2023 12:23 PM EDT Date of Surgery: right eye 11/15/23 and left eye 11/28 Surgical procedure being done: cataract surgery both eyes Type of anesthesia: local anesthesia Lab needed: No EKG: No Surgeon's name: mercedes mohan Facility name: [address], [place] [address] Surgeon's office number: [phone] Surgeon's office fax number: [phone] Contact name (person you spoke with): Mali Last office note from surgeon requested: No documented in this encounter Plan of Treatment Upcoming Encounters Date Type Department Care Team (Late st Contact Info) Description 12/27/2024 10:30 AM EDT Medication Management [facility] MEDICINE [address] [place] [address] Piers-Maria Isabel Stillsa, PharmD [address] [place] [address] documented as of this encounter Goals Goal [...] documented as of this encounter Care Teams Brick Kiln Worker Relationship Specialty Start Date End Date Dominique Alcaraz MD [address] [place], [place] PCP - General Family Medicine 12/20/12 Jamaris-Martina Still, PharmD [address] [place] [address] Pharmacist Internal Medicine 03/12/22 Refugio Huston MD [address] [place] [address] Nephrology 05/01/24 Chun Álvarez MD [address] [place] [address] Hematology and Oncology 05/01/24 Moses Dumont MD [address] [place] [address] Cardiology 05/01/24 documented as of this encounter
--- OUTSIDE RECORDS SUMMARY | 2024-12-22 14:59 | XMS_ITS | Encounter Summary ---
Author Organization [employer] Address [address] 7t [place] [address] Care Team Providers Care Special Events Coordinator Name Role Phone Dominique Alcaraz MD Primary Care Provider Martina Wesley PharmD Unavailable Refugio Huston MD Unavailable [phone] Chun Álvarez MD Unavailable Moses Dumont MD Unavailable [phone] Reason for Visit * Reason Comments Med Refill Encounter Details Date Type Department Care Team (Late st Contact Info) Description 08/14/2024 Refill [facility] MEDICINE [address] [place], [place] [phone] Martina Wesley, PharmD [address] [place] [address] Primary hypertension Social History Tobacco Use Types [...] Description 12/27/2024 10:30 AM EDT Medication Management [facility] MED[facility]INE [address] [place] [address] Martina Wesley PharmD [address] [place] [address] documented as of this encounter Goals Goal [...] documented as of this encounter Care Teams Special Events Coordinator Relationship Specialty Start Date End Date Dominique Alcaraz MD [address] [place] [address] PCP - General Family Medicine 12/20/12 Martina Wesley PharmD [address] [place] [address] Pharmacist Internal Medicine 03/12/22 Refugio Huston MD [address] [place] [address] Nephrology 05/01/24 Chun Álvarez MD [address] [place] [address] Hematology and Oncology 05/01/24 Moses Dumont MD [address] [place] [address] Cardiology 05/01/24 documented as of this encounter
--- OUTSIDE RECORDS SUMMARY | 2024-12-22 14:59 | XMS_ITS | Encounter Summary ---
Author Organization [employer] Address [address] 7[address] [place] [address] Care Team Providers Care Geometrician Name Role Phone Dominique Alcaraz MD Primary Care Provider + [phone] Martina Wesley PharmD Unavailable Refugio Huston MD Unavailable [phone] Cuhn Álvarez MD Unavailable [phone] Moses Dumont MD Unavailable [phone] Reason for Visit * Reason Comments Med Refill Encounter Details Date Type Department Care Team (Late st Contact Info) Description 05/07/2023 Refill [facility] [address] [place], [place] [phone] Dominique Alcaraz MD 230 [place], [place] [phone] Type 2 diabetes mellitus without complication, 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 senior living insulin use ([facility]) Social History Tobacco Use Types [...] Description 12/27/2024 10:30 AM EDT Medication Management [facility] [address] [place] [address] JamarisMartina Larsen, PharmD [address] [place] [address] documented as of this encounter Goals Goal Patient Goal Type Associated Problems Recent Progress Patient-Stated? Author Blood Pressure < 140/90 Blood Pressure 120/82(2024 11:56 AM EDT) No Piers-Poonaml marj, Martina, PharmD Hemoglobin A1c < 7 Result Component 6.9( 12:00 PM EDT) No Jamaris-Gambl marj, Martina, PharmD documented as of this encounter Visit Diagnoses Diagnosis Type 2 diabetes mellitus without complication, 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 long distance operator insulin use documented in this encounter Additional Health Concerns Assessment Noted Time PHQ-9 Depression Total Score: 0 07/09/19 23 3:56 PM EDT documented as of this encounter Care Teams Geometrician Relationship Specialty Start Date End Date Dominique Alcaraz MD [address] [place] [address] PCP - General Family Medicine 12/20/12 Martina Wesley, Irma [address] [place] [address] Pharmacist Internal Medicine 03/12/22 Refugio Huston MD [address] [place] [address] Nephrology 05/01/24 Chun Álvarez MD [address] [place] [address] Hematology and Oncology 05/01/24 Moses Dumont MD [address] [place] [address] Cardiology 05/01/24 documented as of this encounter
--- OUTSIDE RECORDS SUMMARY | 2024-12-22 14:59 | XMS_ITS | Encounter Summary ---
Author Organization [employer] Address [address] [place] [address] Care Team Providers Care Supervisor Continuous Weld Pipe Mill Name Role Phone Dominique Alcaraz MD Primary Care Provider + [phone] Martina Wesley PharmD Unavailable [phone] Refugio Huston MD Unavailable [phone] Chun Álvarez MD Unavailable [phone] Moses Dumont MD Unavailable [phone] Reason for Visit * Reason Comments Med Refill Encounter Details Date Type Department Care Team (Late st Contact Info) Description 03/17/2023 Refill [facility] MEDICINE 230 [place], [place] [phone] Dominique Alcaraz MD [address] [place], [place] [phone] Vitamin D deficiency; Stage 2 chronic kidney [...] 10:30 AM EDT Medication Management [facility] MEDICINE [address] [place] [phone] Martina Wesley, PharmD [address] [place] [address] documented as of this encounter Goals Goal [...] documented as of this encounter Care Teams Supervisor Continuous Weld Pipe Mill Relationship Specialty Start Date End Date Dominique Alcaraz MD [address] [place] [address] PCP - General Family Medicine 12/20/12 JamarisMartina Larsen, PharmD [address] [place] [address] Pharmacist Internal Medicine 03/12/22 Refugio Huston MD [address] [place] [address] Nephrology 05/01/24 Chun Álvarez MD [address] [place] [address] Hematology and Oncology 05/01/24 Moses Dumont MD [address] [place] [address] Cardiology 05/01/24 documented as of this encounter
--- OUTSIDE RECORDS SUMMARY | 2024-12-22 14:59 | XMS_ITS | Clinical Summary ---
Author Organization [employer] Address [address] 7[address] [place] [address] Care Team Providers Care Stock Tracer Name Role Phone Dominique Alcaraz MD Primary Care Provider + [phone] Martina Wesley PharmD Unavailable Refugio Huston MD Unavailable [phone] Chun Álvarez MD Unavailable [phone] Moses Dumont MD Unavailable [phone] Allergies Active Allergy Reactions Criticality Noted [...] be different from the original. Enrolled in [facility] DM and [facility] HTN clinic with Martina Wesley PharmD, [facility] Burn Table Operator: Jaci Poker Room Manager Agency: [email or web address] [facility] Problem Noted Date Diagnosed Date Stage 3b chronic kidney disease (CMS/HCC) 2024 Overview (12/20/2024): Lab Results Component Value Date CREATININE 1.15 08/07/2024 CREATININE 0.85 07/30/2023 CREATININE 0.86 06/05/2022 EGFR 47 08/07/2024 EGFR >60 07/30/2023 EGFR >60 06/05/2022 MICROALBCREU 299.7 (H) 08/07/2024 MICROALBCREU 316.8 (H) 10/20/2023 -avoid nephrotoxic agnets -followed by senior mobile solutions architect Dr. Huston Cardiac risk counseling 12/08/2023 Overview (12/08/2023): Calculated [...] Cano last done 06/18/2022 -dental home is [facility] -Health care proxy 11/03/23 Assessment & Plan (11/20/2024 12:16 PM EDT): Assessment & Plan (11/03/2023 9:32 AM EDT): -next physical exam due after 11/05/2023 -eye care facilitated by Dr. Cano last done 06/18/2022 -dental home is [facility] -Health care proxy 11/03/23 Assessment & Plan (11/04/2022 9:18 AM EDT): -next physical exam due after 11/05/2023 -eye care facilitated by Dr. Cano last done 05/2022 -dental home is [facility] Low back pain without sciatica 11/04/2022 Overview (11/04/2022): PT referral done 11/04/2022. Assessment & Plan (11/04/2022 9:23 AM EDT): PT referral done 11/04/2022. Pre-op evaluation 08/05/2022 Overview (11/03/2023): For cataract surgery at [facility] with Dr. Gusman. Pt with mechanical valve on anticoagulation. Recommend continue anticoagulation. Will refer to cardiology to evaluate, will likely continue Coumadin but will ask about ASA. Cataract extraction is one of the only status low risk procedures where anticoagulation is not interrupted. Addendum: TC placed to [facility] to inquire on PCP question regarding if pt should hold aspirin prior to upcoming cataract surgery on 11/15/23. Per the cardiology office the pt has not been seen since November of 2022. The office is going to call the pt to try and schedule an appt before upcoming surgery on 11/15/23. After this appointment the mud jack nozzle worker will be able to determine what medications should or can be held. Assessment & Plan (11/03/2023 9:26 AM EDT): For cataract surgery at [facility] with Dr. Gusman. Pt with mechanical [...] was treated medically as if she was post-NV. Pt was started on both Aspirin and Lipitor. No longer on Plavix. She was on on Digoxin 250 mcg but this was DISCONTINUED in Dec 2012 due to sinus pauses noted at cardiac rehab and her Metoprolol was increased to 25 mg po TID, she is now on aspirin and Coumadin. Last note from cardiac surgery is dated 12/08/12. Her mud jack nozzle worker is Dr. Moses Dumont, note from 07/2024 reviewed -PT NEEDS ANTIBIOTIC PROPHLAXIS PRIOR TO DENTAL WORK - RX AMOXICILLIN 2G PRIOR TO DENTAL WORK -Seen by Dr. Dumont 07/2024 recommending follow up 1 year -note from Patient followed at [facility] with Dr. John Dumont DO. 07/2024 reveiwed Assessment & Plan (11/20/2024 [...] was treated medically as if she was post-NV. Pt was started on both Aspirin and Lipitor. No longer on Plavix. She was on on Digoxin 250 mcg but this was DISCONTINUED in Dec 2012 due to sinus pauses noted at cardiac rehab and her Metoprolol was increased to 25 mg po TID, she is now on aspirin and Coumadin. Last note from cardiac surgery is dated 12/08/12. Her mud jack nozzle worker is Dr. Moses Dumont, last visit [...] was treated medically as if she was post-NV. Pt was started on both Aspirin and Lipitor. No longer on Plavix. She was on on Digoxin 250 mcg but this was DISCONTINUED in Dec 2012 due to sinus pauses noted at cardiac rehab and her Metoprolol was increased to 25 mg po TID, she is now on aspirin and Coumadin. Last note from cardiac surgery is dated 12/08/12. Her mud jack nozzle worker is Dr. 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 Blancas Lab Results Component Value Date CREATININE 1.15 08/07/2024 EGFR 47 08/07/2024 MICROALBCREU 299.7 (H) 08/07/2024 MICROALBCREU 316.8 (H) 10/20/2023 LDLCHOLCAL 41 08/30/2024 -Followed by Dr Blancas -Continue korina 10mg [...] in 2005 - Previously followed by the [facility]. Last note dated 10/03/2013. Follow up annually for mammo and office visit. - [facility] no longer accepting pt's insurance so now followed at [facility] q [address] Álvarez and Nathalie. -Last seen by oncology with Dr. Álvarez [...] in 2005 - Previously followed by the [facility]. Last note dated 10/03/2013. Follow up annually for mammo and office visit. - [facility] no longer accepting pt's insurance so now followed at [facility] q [address] Pryor. -Last seen by oncology on 08/25/2019. 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 Last note dated 10/03/2013. Follow up annually for mammo and office visit. - [facility] no longer accepting pt's insurance so now followed at [facility] q [address] Pryor. -Last seen by oncology on 08/25/2019. -Recent Mammo 04/11/21 BI-RADS 2 benign Atrial fibrillation (CMS/HCC) 03/26/2013 Overview (08/30/2024): - continue choric anticoagulation INR goal 2.5-3.5 due to heart valve repair -note from Patient followed at [facility] with Dr. John Dumont DO. Note from 08/24/24 reviewed. Assessment & Plan (11/20/2024 12:16 PM EDT): Assessment & Plan (03/05/2022 12:04 PM EST): - continue choric anticoagulation INR goal 2.5-3.5 due to heart valve repair Type 2 diabetes mellitus wit h stage 3b chronic kidney disease, without long-term current use of insulin 04/25/2012 Overview (12/12/2024): Diabetes is controlled. Lab Results Component Value Date HGBA1C 6.9 (A) 11/20/2024 HGBA1C 7.2 (A) 07/31/2024 HGBA1C 6.8 (A) 01/24/2024 Lab Results Component Value Date CREATININE 1.15 08/07/2024 EGFR 47 08/07/2024 MICROALBCREU 299.7 (H) 08/07/2024 MICROALBCREU 316.8 (H) 10/20/2023 LDLCHOLCAL 41 08/30/2024 -Haile/Arb: telmisartan 80mg -Statin therapy: atorvastatin 80mg [...] 80mg daily -ordered lipid panel 11/03/23 -offered [place]-3s, bu wants to trial lifestyle changes. Will [...] Encounters Date Type Department Care Team Description 12/22/2024 Orders Only GENERIC EXTERNAL DATA DEPARTMENT Provider, Generic External Data 12/01/2024 Orders Only GENERIC EXTERNAL DATA DEPARTMENT Provider, Generic External Data 11/30/2024 Telephone [facility] MEDICINE [address] [place] [address] Nelda Banks RN Paperwork/Forms 11/23/[address] [address] Dominique Alcaraz MD Osteopenia of multiple sites 11/20/2024 11:15 AM EDT Office Visit [address] [address] Dominique Alcaraz MD Hypertension, unspecified type (Primary Dx); Hyperlipidemia, unspecified hyperlipidemia type; History of aortic valve repair; Paroxysmal atrial fibrillation ([facility]/HCC); Type 2 diabetes mellitus with chronic kidney disease, without long-term current use of insulin, unspecified CKD stage (CMS/HCC); Stage 3a chronic kidney disease (CMS/HCC); Atypical ductal hyperplasia of breast; Other specified health status; Encounter for immunization 11/20/2024 Travel 11/17/2024 Telephone [facility] [address] [place] [address] Ginna Jaimes [place] 11/10/2024 Orders Only GENERIC EXTERNAL DATA DEPARTMENT Provider, Generic External Data 10/20/2024 Orders Only GENERIC EXTERNAL DATA DEPARTMENT Provider, Generic External Data 10/17/[address] [address] Dominique Alcaraz MD Chart Prep 09/29/2024 Orders Only GENERIC EXTERNAL DATA DEPARTMENT Provider, Generic External Data from Last 3 Months Immunizations Immunization Administration [...] antigen) 11/17/2011 [facility] SARS-CoV-2 Vaccination 05/15/2020 Novel [id number] 11/19/2015 Pfizer Covid-19 Vaccine 12+ 01/31/2021 Pfizer Covid-19 Vaccine 12+ Bivalent 03/12/2022 Pneumococcal Conjugate PCV 13 01/04/2014 Pneumococcal Conjugate PCV 20 11/04/2022 Pneumococcal Polysaccharide PPSV23 10/11/2006 RSV Bivalent 11/23/2023 TD (adult), 2 Lf tetanus tox oid, preservative free, adsorbed 10/11/2006 Tdap 11/20/2024,01/04/2014 Zoster, Recombinant 06/05/2021,,04/03/2021,04/03 Social History Tobacco Use [...] Description 12/27/2024 10:30 AM EDT Medication Management [facility] MEDICINE [address] [place] [address] Martina Wesley, PharmD [address] [place] [address] Health Maintenance Due Date Last Done Comments [...] [facility] Routine 12/22/2024 1:10 PM EDT PROTHROMBIN TIME WHOLE BLD POC Routine 12/01/2024 [...] COAG CLINIC Routine 09/29/2024 1:11 PM EDT LIPID PANEL, STANDARD Routine 08/30/2024 [...] WHOLE BLD POC (12/22/2024 1:10 PM EDT) Only the most recent of5 resultswithin the time period is included. Protime 40.6(H) 11.1 - 13.5 sec [facility] 12/22/2024 1:10 PM EDT 12/22/2024 1:12 PM EDT Generic External Data Provider LAB BLOOD ORDERAB LES Final Result Performing Organization Address [facility] Co de Phone Number [facility] [address] [place] [phone] * (ABNORMAL) ~PT, ~INR - ANTI COAG CLINIC (12/22/2024 1:10 PM EDT) Only the most recent of5 resultswithin the time period is included. Prothrombin Time INR 3.4(H) 0.9 - 1.1 [facility] Comment:METER #: [id number] TERNATIONAL NORMALIZED RATIO (INR) REFERENCE RANGES Reference [...] Result Performing Organization Address [facility] Co de Phone Number [facility] [address] [place] [phone] * (ABNORMAL) POCT glycosylated hemoglobin (Hgb A1c) (11/20/2024 12:00 PM EDT) Hemoglobin A1C 6.9(A) 4.0 - 5.7 % QC Media Lot # [id number] Lot# Expiration Date ,118,195 Blood Capillary blood specimen / Unknown 11/20/2024 12:00 PM EDT Dominique Alcaraz MD POINT OF CARE TEST ENTER/E DIT ORDERABLES Final Result * POCT glucose manually resulted (11/20/2024 11:59 AM EDT) Glucose Blood, POC 108 60 - 200 mg/dL QC Media Lot # [id number] Lot# Expiration Date ,437,900 Blood Capillary blood specimen / Unknown 11/20/2024 11:59 AM EDT Dominique Alcaraz MD POINT OF CARE TEST ENTER/E DIT ORDERABLES Final Result * (ABNORMAL) Lipid Panel, Standard (08/30/2024 8:13 AM EDT) Triglycerides 270(H) <150 mg/dL [facility] Comment:Desirable Triglyceri de: less than 150 mg/dLBorderline High Triglyceride 150-199 mg/dLHigh Triglyceride: 200-499 mg/dLVery High Triglyceride: greater than or equal to 5OO mg/dL Cholesterol 128 <200 mg/dL [facility] Comment:Desirable Cholestero l: less than 200 mg/dLBorderline High Cholesterol: 200-239 mg/dLHigh Cholesterol: greater than 239 mg/dL LDL Cholesterol Calculated 41 <100 mg/dL [facility] Comment:Desirable LDL: less than 100 mg/dLNear Optimal/Above Optimal LDL: 110- 129 mg/dLBorderline High LDL: 130-159 mg/dLHigh LDL: 160-189 mg/dLVery High LDL: greater than or equal to 190 mg/dL HDL Cholesterol 33(L) >40 mg/dL [facility] Comment:Desirable HDL: great er than 40 mg/dL Note: This HDL assay may give artificially low results in patients with liver disease. Blood Venous blood specimen / Unknown 08/30/2024 8:13 AM EDT 08/30/2024 11:51 AM EDT Dominique Alcaraz MD LAB BLOOD ORDERABLES Final Result [facility] [address] [place] [phone] * Hepatitis C Antibody with Reflex to HCV, RNA, Quantitative, Real-Time PCR (08/07/2024 8:03 AM EDT) Hepatitis C Antibody Nonreactive Nonreactive [facility] Comment:Antibodies to HCV no t detected; does not exclude early acuteHCV infection. Blood Venous blood specimen / Unknown 08/07/2024 8:03 AM EDT 08/07/2024 11:11 AM EDT Dominique Alcaraz MD LAB BLOOD ORDERABLES Final Result [facility] [address] [place] [address] [phone] * Mammography (05/04/2024 11:40 AM EST) [...] Most Recently Relevant to Health Maintenance Insurance [employer] (O D-SNP) ADDIS DON [id number] DENTAL - [facility] Advance Directives Documents on File Type Date Recorded Patient Associate Technician Expl anation Advance Directives and Living Will 11/04/2023 11:37 AM Health Care Proxy Care Teams Stock Tracer Relationship Specialty Start Date End Date [place], MD Dominique [address] [place] [address] PCP - General Family Medicine 12/20/12 Martina Wesley PharmD [address] [place] [address] Pharmacist Internal Medicine 03/12/22 Refugio Huston MD [address] [place] [address] Nephrology 05/01/24 Chun Álvarez MD [address] [place] [address] Hematology and Oncology 05/01/24 Moses Dumont MD [address] [place] [address] Cardiology 05/01/24
--- OUTSIDE RECORDS SUMMARY | 2024-12-22 14:59 | XMS_ITS | Encounter Summary ---
Author Organization [employer] Address [address] [place] [address] Care Team Providers Care Hide And Skin Fleshing Machine Operator Name Role Phone Dominique Alcaraz MD Primary Care Provider + [phone] Martina Wesley PharmD Unavailable [phone] Refugio Huston MD Unavailable [phone] Chun Álvarez MD Unavailable [phone] Moses Dumont MD Unavailable [phone] Encounter Details Date Type Department Care Team (Late st Contact Info) Description 05/04/2024 Abstract [facility] [address] [place] [address] Sunitha Singleton [place] Social History Tobacco Use [...] Description 12/27/2024 10:30 AM EDT Medication Management [facility] [address] [place] [address] JamarisMartina Larsen, PharmD [address] [place] [address] documented as of this encounter Goals Goal [...] documented as of this encounter Care Teams Hide And Skin Fleshing Machine Operator Relationship Specialty Start Date End Date Dominique Alcaraz MD [address] [place] [address] PCP - General Family Medicine 12/20/12 Martina Wesley, BetsyD [address] [place] [address] Pharmacist Internal Medicine 03/12/22 Refugio Huston MD [address] [place] [address] Nephrology 05/01/24 Chun Álvarez MD [address] [place] [address] Hematology and Oncology 05/01/24 Moses Dumont MD [address] [place] [address] Cardiology 05/01/24 documented as of this encounter
--- OUTSIDE RECORDS SUMMARY | 2024-12-22 14:59 | XMS_ITS | Encounter Summary ---
Author Organization [employer] Address [address] [place] [address] Care Team Providers Care Poultry Process Worker Name Role Phone Dominique Alcaraz MD Primary Care Provider Martina Wesley PharmD Unavailable Refugio Huston MD Unavailable [phone] Chun Álvarez MD Unavailable [phone] Moses Dumont MD Unavailable [phone] Reason for Visit * Reason Comments Med Refill Encounter Details Date Type Department Care Team (Late st Contact Info) Description 08/18/2024 Refill [facility] [address] [place], [place] [phone] Martina Wesley, PharmD 230 [place] [address] Primary hypertension Social History Tobacco Use Types [...] Description 12/27/2024 10:30 AM EDT Medication Management [facility] [address] [place] [address] Martina Wesley PharmD 230 [place] [address] documented as of this encounter Goals Goal [...] documented as of this encounter Care Teams Poultry Process Worker Relationship Specialty Start Date End Date Dominique Alcaraz MD 230 [place] [address] PCP - General Family Medicine 12/20/12 Martina Wesley, Irma 230 [place] [address] Pharmacist Internal Medicine 03/12/22 Refugio Huston MD [address] [place] [address] Nephrology 05/01/24 Chun Álvarez MD [address] [place] [address] Hematology and Oncology 05/01/24 Moses Dumont MD [address] [place] [address] Cardiology 05/01/24 documented as of this encounter
--- OUTSIDE RECORDS SUMMARY | 2024-12-22 14:59 | XMS_ITS | Encounter Summary ---
Author Organization [employer] Address [address] [facility] [address] [facility] [address] 7t [place] [address] Care Team Providers Care Block Sorter Name Role Phone Dominique Alcaraz MD Primary Care Provider Martina Wesley PharmD Unavailable Refugio Huston MD Unavailable Chun Álvarez MD Unavailable [phone] Moses Dumont MD Unavailable [phone] Encounter Details Date Type Department Care Team (Late st Contact Info) Description 05/01/2024 Orders Only [facility] [address] [place], [place] [phone] Dominique Alcaraz MD 230 [place], [place] [phone] Type 2 diabetes mellitus with chronic kidney [...] the past 12 months, has t he [employer], gas, oil or water [employer] threatened to shut off services in your [...] Description 12/27/2024 10:30 AM EDT Medication Management [facility] [address] [place] [address] Martina Wesley PharmD [address] [place] [address] documented as of this encounter Goals Goal [...] Protime 27.7(H) 11.1 - 13.5 sec [facility] 05/01/2024 1:32 PM EST 05/01/2024 1:34 PM EST us Generic External Data Provider LAB BLOOD ORDERAB LES Final Result Performing Organization Address [facility] de Phone Number [facility] [address] [place] [address] [phone] * (ABNORMAL) ~PT, ~INR - ANTI COAG CLINIC (05/01/2024 1:32 PM EST) Prothrombin Time INR 2.3(H) 0.9 - 1.1 [facility] Comment:METER #: [id number] TERNATIONAL NORMALIZED RATIO (INR) REFERENCE RANGES Reference [...] ORDERAB LES Final Result Performing Organization Address [facility] Co de Phone Number [facility] [address] [place] [phone] documented in this encounter Visit Diagnoses [...] documented as of this encounter Care Teams Block Sorter Relationship Specialty Start Date End Date Dominique Alcaraz MD 230 [place] [address] PCP - General Family Medicine 12/20/12 Martina Wesley, BetsyD [address] [place] [address] Pharmacist Internal Medicine 03/12/22 Refugio Huston MD [address] [place] [address] Nephrology 05/01/24 Chun Álvarez MD 575 [place] [address] Hematology and Oncology 05/01/24 Moses Dumont MD [address] [place] [address] Cardiology 05/01/24 documented as of this encounter
--- OUTSIDE RECORDS SUMMARY | 2024-12-22 14:59 | XMS_ITS | Encounter Summary ---
Author Organization [employer] Address [address] [facility] 7t [place] [address] Care Team Providers Care Director Advertising Name Role Phone Dominique Alcaraz MD Primary Care Provider + [phone] Martina Wesley PharmD Unavailable [phone] Refugio Huston MD Unavailable [phone] Chun Álvarez MD Unavailable [phone] Moses Dumont MD Unavailable [phone] Encounter Details Date Type Department Care Team (Late st Contact Info) Description 12/08/2023 Orders Only [facility] 230 [place] [address] Provider, MD Christiano Social History Tobacco Use [...] Description 12/27/2024 10:30 AM EDT Medication Management [facility] 230 [place] [address] Piers-StillMaria Isabelsa, PharmD 230 [place] [address] documented as of this encounter Goals Goal [...] as of this encounter Care Teams Director Advertising Relationship Specialty Start Date End Date Dominique Alcaraz MD 230 [place] [address] PCP - General Family Medicine 12/20/12 Martina Wesley, BetsyD 230 [place] [address] Pharmacist Internal Medicine 03/12/22 Refugio Huston MD [address] [place] [address] Nephrology 05/01/24 Chun Álvarez MD [address] [place] [address] Hematology and Oncology 05/01/24 Moses Dumont MD [address] [place] [address] Cardiology 05/01/24 documented as of this encounter
== END 2024-12-22 13:19 | disposition home or self-care (01) ==
LOC: HO.ACS 12:58
PROVIDERS: PCP Family Medicine; Visit Provider Internal Medicine Medical Oncology
DX: Z79.01 Long term (current) use of anticoagulants (principal)

== ENCOUNTER → 2024-12-22 12:58 | Outpatient (BNVA) | payer OTHER, SELFPAY | PROVIDERS: PCP Family Medicine; Visit Provider Internal Medicine Medical Oncology | DX: Z95.2 Presence of prosthetic heart valve (principal); Z51.81 Encounter for therapeutic drug level monitoring; Z79.01 Long term (current) use of anticoagulants | CPT/HCPCS: 85610; 99211 ==

== ENCOUNTER 2025-01-04 14:57 | Outpatient (AMB) | payer OTHER, SELFPAY ==
--- NOTE | 2025-01-04 15:09 | A.OFFVIS_ITS ---
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[place]/HTN,HLD,PAF,h/o aortic valve repair Channel Process Plant Operator Required: Yes Channel Process Plant Operator Language: Implementation Technician Name: [id number] Accompanied by: Self / Same As Patient Allergies lisinopril (LISINOPRIL) Allergy (Intermediate, Verified 12/22/24 13:07) rash/cough, palpitations Medication List - Last Reconciled 01/04/25 by Brody Barros MD amlodipine 5 mg PO DAILY aspirin 81 mg PO DAILY atorvastatin 80 mg PO BEDTIME blood sugar diagnostic (FreeStyle Lite Strips) As directed blood-glucose meter (FreeStyle Monroe Lite kit) As directed calcium carbonate (Calcium Antacid) 200 mg PO DAILY cholecalciferol (vitamin D3) (Vitamin D3) 25 mcg PO DAILY cyanocobalamin (vitamin B-12) (Vitamin B-12) 500 mcg PO DAILY empagliflozin (Jardiance) 25 mg PO DAILY ferrous sulfate 325 mg PO DAILY lancets (TRUEplus Lancets) As directed metformin ER 500 mg PO QPM metoprolol tartrate 1 tab PO BID telmisartan (Micardis) 80 mg PO DAILY warfarin 5 mg See Protocol PO DIRECTED warfarin 2.5 mg See Protocol PO DIRECTED HPI Comments Details: Dyan is here for cardiology consultation. She is switching from [facility]. Per notes, she had open heart surgery in 2012. History of bicuspid aortic valve with moderate stenosis and enlarged ascending aorta to 4.6 cm. She had 23 mm Saint Jc mechanical aortic valve, resection of ascending aortic aneurysm, repair of aortic arch aneurysm. Per discharge summary, she also had paroxysmal atrial fibrillation. It seems that she has been generally stable and was following up at [facility] but now switching to us. She states she is generally feeling fine does not really have any overt symptoms at this time. [facility] Medical History (Updated 01/04/25 @ 16:02 by Brody Barros MD) Paroxysmal atrial fibrillation Hepatitis C Depression Pelvic pressure in female Osteopenia Back pain Stage 3 chronic kidney disease Proteinuria Phyllodes tumor On anticoagulant therapy Hyperlipidemia Atrial fibrillation Aortic valve disorder Chronic kidney disease Hip pain Diabetes Atypical hyperplasia of left breast High cholesterol HTN (hypertension) Surgical History (Updated 01/04/25 @ 16:06 by Brody Barros MD) S/P ascending aortic aneurysm repair History of aortic arch repair Status post mechanical aortic valve replacement Hx of aortic valve repair Hx of cholecystectomy Hx of breast lump removal Hx of artificial heart valve replacement Family History Mother Diabetes Father HTN (hypertension) Social History Household Members: Spouse Housing: House Are you a primary home health aide caregiver to a significant other at home: No Do you presently have visiting nurse or other home services: Yes Alcohol intake: former Patient Tobacco Use Status: Never used Tobacco service: No Current occupational status: unemployed Review of Systems Const All systems reviewed & are unremarkable except as noted in HPI and below Reports as per HPI and Reports no additional complaints Eyes Reports as per HPI and Denies no additional complaints ENT Denies no additional complaints and Reports as per HPI Card Reports as per HPI, Reports no additional complaints, Denies acrocyanosis, Denies chest pain, Denies leg edema, Denies lightheadedness, Denies palpitations and Denies dyspnea Resp Reports as per HPI, Denies no additional complaints and Denies dyspnea GI Reports as per HPI and Denies no additional complaints Reports as per HPI Musc Reports no additional complaints and Reports as per HPI Skin/Breast Reports system reviewed and no additional complaints, except as documented Neuro Reports no additional complaints and Reports as per HPI Psych Reports no additional complaints and Reports as per HPI Endo Reports no additional complaints, Reports as per HPI and Denies palpitations Misha/Lymph Reports no additional complaints and Reports as per HPI Aller/Immun Reports no additional complaints and Reports as per HPI Physical Exam Vital Signs: Last Vital Signs Pulse 105 H 01/04/25 15:12 BP 130/70 01/04/25 15:12 BMI result Body Mass Index 25.5 Const General: comfortable and no acute distress Orientation/consciousness: patient oriented x3 HEENT Other: Unremarkable Head: Yes normal to inspection Neck Neck: Yes normal visual inspection Chest Chest palpation & inspection: normal inspection of the chest Resp Auscultation: clear to auscultation bilaterally Cardio Other: Prosthetic heart valve sounds present GI Palpation (GI): Soft to palpation Back/Spine/Pelvis Other: unremarkable Skin General skin exam: no rashes or lesions noted Neuro General: patient oriented x3 Extrem General: Yes normal to inspection Psych Mental Status: mental status grossly normal Office Procedures EKG Details: EKG with underlying sinus tachycardia at 105/Min; no ischemic changes; normal TX and corrected QT. Cannot exclude old anterior infarct, but could be from body habitus and lead placement. 54112-[id number], Complete Assessment & Plan Assessment & Plan (1) Status post mechanical aortic valve replacement: Code(s): Z95.2 - Presence of prosthetic heart valve Category: Surgical Plan: Status post 23 mm Saint Jc mechanical prosthesis 2012. Continue appropriate anticoagulation/aspirin. Infective endocarditis prophylaxis per protocol. Check echocardiogram. (2) S/P ascending aortic aneurysm repair: Code(s): Z98.890 - Other specified postprocedural states; Z86.79 - Personal history of other diseases of the circulatory system Category: Surgical Plan: Echocardiogram as above. Probably CTA at some point. (3) History of aortic arch repair: Code(s): Z98.890 - Other specified postprocedural states Category: Surgical Plan: As above. (4) Paroxysmal atrial fibrillation: Code(s): I48.0 - Paroxysmal atrial fibrillation Category: Medical Plan: Unclear if it is just a postoperative event or if she truly has independent paroxysmal atrial fibrillation. Any case, already on anticoagulation. Plan Discussion Notes I discussed with the patient the plan to perform an echocardiogram to evaluate her heart function and the importance of obtaining her previous medical records for a thorough review of her cardiac history. Patient was informed and verbally consented to the use of an ambient scribe for clinic note documentation during this visit. Orders: Orders CA echo transthoracic complete Today Z95.2 - Presence of prosthetic heart valve Patient Instructions: - Undergo the scheduled echocardiogram as planned. - Ensure that previous medical records are sent to the current practice for review. Coding Level of Care Code New Pt Level 4 (17061) Complex EM visit Add On G2211 Diagnoses Status post mechanical aortic valve replacement Z95.2 S/P ascending aortic aneurysm repair Z98.890; Z86.79 History of aortic arch repair Z98.890 Paroxysmal atrial fibrillation I48.0 CPT Codes EKG - CPT: 11237-Refthuxpekslyzmfr, Complete ([id number])
[2025-01-04 15:12] VITALS: BP 130/70; PULSE 105; BMI 25.5
--- OUTSIDE RECORDS SUMMARY | 2025-01-04 18:04 | XMS_ITS | Encounter Summary ---
Author Organization [facility] Address [address] [place] [address] Phone Care Team Providers Care Monitoring Manager Name Role Phone Unavailable Primary Care Provider Unavailabl e Encounter Details Date Type Department Care Team (Late st Contact Info) Description 06/08/2022 Documentation Only [facility] [address] [address] Cesia Perry PA [address] [place] [address] Social History Tobacco Use Types [...] Visit [facility] [address] [place] [address] Refugio Huston MD [address] [facility] [address] [place] [address] documented as of this encounter Visit Diagnoses Not on filedocumented in this encounter
--- OUTSIDE RECORDS SUMMARY | 2025-01-04 18:04 | XMS_ITS | Encounter Summary ---
Author Organization [employer] Address [address] [facility] 7t [place] [address] Care Team Providers Care Cake Cutter Machine Name Role Phone Dominique Alcaraz MD Primary Care Provider + [phone] Martina Wesley PharmD Unavailable [phone] Refugio Huston MD Unavailable [phone] Chun Álvarez MD Unavailable [phone] Moses Dumont MD Unavailable [phone] Encounter Details Date Type Department Care Team (Late st Contact Info) Description 12/08/2023 Orders Only [facility] 230 [place] [address] Provider, MD Christiano Social History Tobacco Use [...] Care Team (Late st Contact Info) Description 04/30/2025 11:00 AM EST Medication Management [facility] 230 [place] [address] Piers-StillMaria Isabelsa, PharmD 230 [place] [address] documented as of this encounter Goals Goal Patient Goal Type Associated Problems Recent Progress Patient-Stated? Author Blood Pressure < 140/90 Blood Pressure 130/66(2024 10:35 AM EDT) No Piers-Gambl e, Martina, PharmD [...] documented as of this encounter Care Teams Cake Cutter Machine Relationship Specialty Start Date End Date Dominique Alcaraz MD [address] [place] [address] PCP - General Family Medicine 12/20/12 Martina Wesley, BetsyD 230 [place] [address] Pharmacist Internal Medicine 03/12/22 Refugio Huston MD [address] [place] [address] Nephrology 05/01/24 Chun Álvarez MD 575 [place] [address] Hematology and Oncology 05/01/24 Moses Dumont MD 5[address] [place] [address] Cardiology 05/01/24 documented as of this encounter
--- OUTSIDE RECORDS SUMMARY | 2025-01-04 18:04 | XMS_ITS | Patient Health Record ---
Author Organization [facility] Address [address] [place] [address] Care Team Providers Care Superintendent Colliery Name Role Phone Dominique Alcaraz MD Primary Care Provider Shira Bogdan Connelly Unavailable [phone] Allergies Allergen (clinical drug ingredient) Drug/Non Drug [...] Problem Screening for malignant neoplasm of colon ([id number]) Encounter for screening for malignant neoplasm of colon (Z12.11) Active confirmed Problem Gallstones (171769644) Gallstones (K80.20) Active confirmed Problem Right upper quadrant pain (514998787) RUQ pain (R10.11) Active confirmed Plan Of Treatment Future Test Test Name Order Date COLONOSCOPY 05/11/2018 Insurance Providers Payer Name Payer Address Payer Phone Subscriber Number Group Number Insured Name Patient Relationship to Insured Coverage Start Date Coverage End Date [facility] [address] [place] [address] [id number] KUNAL RYAN Self - patient is the insured Medical (General) History Medical History History ICD Code Denies [place],DM,CVA,Lung disease,renal dise ase Neg. 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 Andre before 2012 Surgical History Surgery Date(Month/Year) BTL Breast biopsy-benign Aortic valve replacement and ascending a irwin aneurysm repair 2012
--- OUTSIDE RECORDS SUMMARY | 2025-01-04 18:04 | XMS_ITS | Encounter Summary ---
Author Organization [facility] Address [address] [place] [address] Phone Care Team Providers Care Knot Bumper Name Role Phone Unavailable Primary Care Provider Unavailabl e Encounter Details Date Type Department Care Team (Late st Contact Info) Description 10/17/2021 Orders Only [facility] [address] [place] [address] Lyle Blancas MD [address] [place] [address] [place] [address] Stage 3a chronic kidney disease [...] [facility] [address] [place] [address] Refugio Huston MD [address] [facility] [place] [address] Scheduled Orders Name Type Priority [...]
--- OUTSIDE RECORDS SUMMARY | 2025-01-04 18:04 | XMS_ITS | Encounter Summary ---
Author Organization [facility] Address [address] [place] [address] Phone Care Team Providers Care Analytical Research Program Manager Name Role Phone Unavailable Primary Care Provider Unavailabl e Reason for Visit * Reason Comments Med Refill Encounter Details Date Type Department Care Team (Late Contact Info) Description 02/18/2021 Refill [facility] [place] [address] [place] [address] Lyle Blancas MD [address] [facility] [address] [place] [address] Social History Tobacco Use Types [...] Visit [facility] [place], [address] [place] [address] Refugio Huston MD [address] [address] [place] [address] documented as of this encounter Visit Diagnoses Not on filedocumented in this encounter
--- OUTSIDE RECORDS SUMMARY | 2025-01-04 18:04 | XMS_ITS | Clinical Summary ---
Author Organization [facility] Address [address] [place] [address] [place] [address] Phone Care Team Providers Care Alteration Tailor Apprentice Name Role Phone Unavailable Primary Care Provider [...] Orders Only [facility] [address] [place] [address] Ro Yang [place] 10/10/2024 2:20 PM EDT Office Visit [facility] [address] [place] [address] Refugio Huston MD Type 2 diabetes mellitus, not otherwise specified (HCC) (Primary Dx); Stage 3a chronic kidney disease (HCC) from Last 3 Months Immunizations Immunization Administration Dates Next Due H1N1 Inj 11/19/2015 Hepatitis B 02/04/2022 Influenza Split 11/17/2011 Influenza, MDCK, PF, Quadrivalent 01/11/2021,11/2019 Influenza, Quadrivalent, Preservative Free 12/08,02/06/2019 Influenza, Quadrivalent, With Preservative 01/27,03/19/2015 Influenza, Unspecified 12/04/2021,01/04/2014,07/2010 [employer] SARS-COV-2 05/15/2020 Pfizer SARS-COV-2 01/31/2021 Pneumococcal Conjugate [...] Visit [facility], [address] [place] [address] Refugio Huston MD [address] [place] [address] [place] [phone] Health Maintenance Due Date Last Done Comments [...] this topic Insurance Medicaid [place] [facility] One Care Dual SNP ([id number])
--- OUTSIDE RECORDS SUMMARY | 2025-01-04 18:04 | XMS_ITS | Encounter Summary ---
Author Organization [facility] Address [address] [place] [address] Phone Care Team Providers Care Associate Pastor Name Role Phone Unavailable Primary Care Provider Unavailabl e Encounter Details Date Type Department Care Team (Late st Contact Info) Description 03/12/2023 Documentation Only [facility] [address] [place] [address] Cesia Perry PA [address] [place] [address] Social History Tobacco Use Types [...] Visit [facility] [address] [place] [address] Refugio Huston MD [address] [facility] [place] [address] documented as of this encounter Visit Diagnoses Not on filedocumented in this encounter
--- OUTSIDE RECORDS SUMMARY | 2025-01-04 18:04 | XMS_ITS | Encounter Summary ---
Author Organization [facility] Address [address] [place] [address] Phone Care Team Providers Care Occupational Health And Safety Adviser Name Role Phone Unavailable Primary Care Provider Unavailabl e Encounter Details Date Type Department Care Team (Late Contact Info) Description 06/30/2024 Documentation Only [facility] [address] [place] [address] Priscilla Buitrago [place] [address] [place] [address] Social History Tobacco Use Types [...] Visit [facility] [address] [place] [address] Refugio Huston MD [address] [place] [address] [place] [address] documented as of this encounter Visit Diagnoses Not on filedocumented in this encounter
--- OUTSIDE RECORDS SUMMARY | 2025-01-04 18:04 | XMS_ITS | Encounter Summary ---
Author Organization [employer] Address [address] [place] [address] Care Team Providers Care Golf Club Facer Name Role Phone Dominique Alcaraz MD Primary Care Provider + [phone] Martina Wesley PharmD Unavailable Refugio Huston MD Unavailable [phone] Chun Álvarez MD Unavailable [phone] Moses Dumont MD Unavailable [phone] Reason for Visit * Reason Comments Med Refill Encounter Details Date Type Department Care Team (Late st Contact Info) Description 03/17/2023 Refill [facility] [address] [place], [place] [phone] Dominique Alcaraz MD [address] [place], [place] [phone] Vitamin D deficiency; Stage 2 chronic kidney [...] Description 04/30/2025 11:00 AM EST Medication Management [facility] [address] [place] [address] Martina Wesley, PharmD [address] [place] [address] documented as of this encounter Goals Goal Patient Goal Type Associated Problems Recent Progress Patient-Stated? Author Blood Pressure < 140/90 Blood Pressure 130/66(2024 10:35 AM EDT) No Piers-Gambl e, Martina, PharmD Hemoglobin A1c < 7 Result Component 6.9( 12:00 PM EDT) No Jamaris-Gambl Maria Isabel mcmahansa, PharmD documented as of this encounter Visit Diagnoses Diagnosis Vitamin D deficiency Stage 2 chronic kidney disease documented in this encounter Additional Health Concerns Assessment Noted Time PHQ-9 Depression Total Score: 0 07/09/19 23 3:56 PM EDT documented as of this encounter Care Teams Golf Club Facer Relationship Specialty Start Date End Date Dominique Alcaraz MD [address] [place] [address] PCP - General Family Medicine 12/20/12 JamarisMartina Larsen, PharmD [address] [place] [address] Pharmacist Internal Medicine 03/12/22 Refugio Huston MD [address] [place] [address] Nephrology 05/01/24 Chun Álvarez MD [address] [place] [address] Hematology and Oncology 05/01/24 Moses Dumont MD [address] [place] [address] Cardiology 05/01/24 documented as of this encounter
--- OUTSIDE RECORDS SUMMARY | 2025-01-04 18:04 | XMS_ITS | Encounter Summary ---
Author Organization [facility] Address [address] [place] [address] Phone Care Team Providers Care Aircraft Cleaning Supervisor Name Role Phone Unavailable Primary Care Provider Unavailabl e Encounter Details Date Type Department Care Team (Late Contact Info) Description 10/27/2023 Documentation Only [facility] [address] [place] [address] Michelle Linares [address] [place] [address] Social History Tobacco Use Types [...] [facility] [address] [place] [address] Refugio Huston MD [address] [place] [address] [place] [address] documented as of this encounter Visit Diagnoses Not on filedocumented in this encounter
--- OUTSIDE RECORDS SUMMARY | 2025-01-04 18:04 | XMS_ITS | Encounter Summary ---
Author Organization [employer] Address [address] [facility] [address] [place] [address] Care Team Providers Care Senior Product Designer Name Role Phone Dominique Alcaraz MD Primary Care Provider [phone] Martina Wesley PharmD Unavailable Refugio Huston MD Unavailable Chun Álvarez MD Unavailable [phone] Moses Dumont MD Unavailable Encounter Details Date Type Department Care Team (Late st Contact Info) Description 10/30/2022 Abstract [facility] [address] [place] [address] Dominique Alcaraz MD [address] [place] [address] Social History Tobacco Use Types Packs/Day Years [...] Department Care Team (Late Contact Info) Description 04/30/2025 11:00 AM EST Medication Management [facility] [address] [place] [address] Martina Wesley, PharmD [address] [place] [address] documented as of this encounter Goals Goal Patient Goal Type Associated Problems Recent Progress Patient-Stated? Author Blood Pressure < 140/90 Blood Pressure 130/66(2024 10:35 AM EDT) No Jamaris-Martina Jaffe, PharmD Hemoglobin A1c < 7 Result Component 6.9( 12:00 PM EDT) No Jamaris-Martina Jaffe, PharmD documented as of this encounter Visit Diagnoses Not on filedocumented in this encounter Additional Health Concerns Assessment Noted Time PHQ-9 Depression Total Score: 0 07/09/19 3:56 PM EDT documented as of this encounter Care Teams Senior Product Designer Relationship Specialty Start Date End Date Dominique Alcaraz MD [address] [place] [address] PCP - General Family Medicine 12/20/12 Martina Wesley, PharmD [address] [place] [address] Pharmacist Internal Medicine 03/12/22 Refugio Huston MD [address] [place] [address] Nephrology 05/01/24 Chun Álvarez MD [address] [place] [address] Hematology and Oncology 05/01/24 Moses Dumont MD [address] [place] [address] Cardiology 05/01/24 documented as of this encounter
--- OUTSIDE RECORDS SUMMARY | 2025-01-04 18:04 | XMS_ITS | Encounter Summary ---
Author Organization [facility] Address [address] [place] [address] Phone Care Team Providers Care Rigging Up Man Name Role Phone Unavailable Primary Care Provider Unavailabl e Encounter Details Date Type Department Care Team (Late st Contact Info) Description 11/04/2021 Documentation Only [facility] [address] [place] [address] Cesia Perry PA [address] [place] [address] Social History Tobacco Use Types [...] Visit [facility] [address] [place] [address] Refugio Huston MD [address] [place] [address] documented as of this encounter Visit Diagnoses Not on filedocumented in this encounter
--- OUTSIDE RECORDS SUMMARY | 2025-01-04 18:05 | XMS_ITS | Encounter Summary ---
Author Organization [employer] Address [address] [place] [address] Care Team Providers Care Podiatrist Name Role Phone Dominique Alcaraz MD Primary Care Provider + [phone] Martina Wesley PharmD Unavailable [phone] Refugio Huston MD Unavailable [phone] Chun Álvarez MD Unavailable [phone] Moses Dumont MD Unavailable [phone] Reason for Visit * Reason Onset Date Comments Pre op 09/23/2023 Encounter Details Date Type Department Care Team (Late st Contact Info) Description 09/23/2023 Telephone [facility] [address] [place], [place] [phone] Dominique Alcaraz MD [address] [place], [place] [phone] Pre op Social History Tobacco Use Types [...] No Surgeon's name: mercedes mohan Facility name: [id number] [address] Surgeon's office number: [phone] Surgeon's office fax number: [phone] Contact name (person you spoke with): [place] Last office note from surgeon requested: No * Telephone Encounter - Bharti Fregoso - 09/23/2023 12:23 PM EDT Date of Surgery: right eye 11/15/23 and left eye 11/28 Surgical procedure being done: cataract surgery both eyes Type of anesthesia: local anesthesia Lab needed: No EKG: No Surgeon's name: mercedes mohan Facility name: [address], [place] [address] Surgeon's office number: [phone] Surgeon's office fax number: [phone] Contact name (person you spoke with): [place] Last office note from surgeon requested: No documented in this encounter Plan of Treatment Upcoming Encounters Date Type Department Care Team (Late st Contact Info) Description 04/30/2025 11:00 AM EST Medication Management [facility] [address] [place] [address] Piers-Martina Still, PharmD [address] [place] [address] documented as of this encounter Goals Goal [...] documented as of this encounter Care Teams Podiatrist Relationship Specialty Start Date End Date Dominique Alcaraz MD [address] [place], [place] PCP - General Family Medicine 12/20/12 JamarisMartina Larsen, PharmD [address] [place] [address] Pharmacist Internal Medicine 03/12/22 Refugio Huston MD [address] [place] [address] Nephrology 05/01/24 Chun Álvarez MD [address] [place] [address] Hematology and Oncology 05/01/24 Moses Dumont MD [address] [place] [address] Cardiology 05/01/24 documented as of this encounter
--- OUTSIDE RECORDS SUMMARY | 2025-01-04 18:05 | XMS_ITS | Clinical Summary ---
Author Organization [employer] Address [address] [facility] [address] [place] [address] Care Team Providers Care Filter Press Pumper Name Role Phone Dominique Alcaraz MD Primary Care Provider + [phone] Martina Wesley PharmD Unavailable Refugio Huston MD Unavailable [phone] Chun Álvarez MD Unavailable [phone] Moses Dumont MD Unavailable [phone] Allergies Active Allergy Reactions Criticality Noted Date Comments Lisinopril Palpitations,Shortne ss of breath High 05/22/2010 Other reaction(s): palpitations, SOB Medications aspirin 81 MG EC tablet Take 1 tablet by mouth in the morning. 013 Active Ferrous Sulfate (iron) 325 (65 Fe) MG tablet TAKE 1 TABLET BY MOUTH ONCE DAILY WITH BREAKFAST 023 Active glucose blood (FREESTYLE LITE) test stripIndications: Type 2 diabetes mellitus with chronic kidney disease, without long-term current use of insulin, unspecified CKD stage (HCC) TEST BLOOD SUGAR TWICE DAILY 100 each 11 024 Active Jardiance 25 MGIndications:Typ e 2 diabetes mellitus with chronic kidney disease, without long-term current use of insulin, unspecified CKD stage (HCC) Take 25 mg by mouth Once per day. 024 Active Magnesium 500 MG capsule PT PURCHASING OTC Active telmisartan (MIcarDIS) 80 MG tabletIndications :Primary hypertension Take 1 tablet by mouth once daily 90 tablet 1 024 Active cholecalciferol (D3-1000) 25 MCG (1000 UT) capsuleIndication s:Vitamin D deficiency TAKE 1 CAPSULE BY MOUTH EVERY DAY 30 capsule 11 025 Active metoprolol tartrate (Lopressor) 50 MG tabletIndications :Primary hypertension TAKE 1 TABLET BY MOUTH TWICE DAILY 60 tablet 11 025 Active TRUEplus Lancets 33G miscIndications:T ype 2 diabetes mellitus with chronic kidney disease, without long-term current use of insulin, unspecified CKD stage (HCC) TEST BLOOD SUGAR TWICE DAILY 100 each 11 025 Active amoxicillin (Amoxil) 500 MG capsule TAKE 4 CAPSULES BY MOUTH ONCE BEFORE SURGERY 4 capsule 2 025 Active fish oil-omega-3 fatty acids 1000 MG capsuleIndication s:Hyperlipidemia, unspecified hyperlipidemia type Take 2 capsules (2 g) by mouth 2 times daily. 180 capsule 3 025 Active metFORMIN XR (Glucophage-XR) 500 MG 24 hr tabletIndications :Type 2 diabetes mellitus with chronic kidney disease, without long-term current use of insulin, unspecified CKD stage (HCC) TAKE 1 TABLET BY MOUTH EVERY DAY 90 tablet 025 Active atorvastatin (Lipitor) 80 MG tabletIndications :Hyperlipidemia, unspecified hyperlipidemia type TAKE 1 TABLET BY MOUTH ONCE DAILY 90 tablet 3 025 Active warfarin (Coumadin) 2.5 MG tabletIndications :History of aortic valve repair TAKE DIRECTED BY COUMADIN CLINIC 60 tablet 3 025 Active warfarin (Coumadin) 5 MG tabletIndications :History of aortic valve repair,Paroxysmal atrial fibrillation (CMS/HCC) (HCC) TAKE DIRECTED BY COUMADIN CLINIC 30 tablet 3 025 Active amLODIPine (Norvasc) 5 MG tabletIndications :Hypertension, unspecified type Take 1 tablet (5 mg) by mouth Once per day. 90 tablet 025 Active Calcium Antacid 500 MG chewable tabletIndications :Osteopenia of multiple sites CHEW 1 TABLET BY MOUTH TWICE DAILY 60 tablet 11 025 Active cyanocobalamin (Vitamin B-12) 500 MCG tablet Take 500 mcg by mouth Once per day. PT PURCHASING OTC 2024 Discontinued(M ed list cleanup (will not trigger notification to Pharmacy)) Active Problems Patient Care Coordination No te Formatting of this note migh t be different from the original. Enrolled in [facility] DM and [facility] HTN clinic with Martina Wesley, BetsyD, [facility] Breaker Off: [employer] Agency: [facility] Problem Noted Date Diagnosed Date Stage 3b chronic kidney disease (CMS/HCC) 2024 Overview (12/20/2024): Lab Results Component Value Date CREATININE 1.15 08/07/2024 CREATININE 0.85 07/30/2023 CREATININE 0.86 06/05/2022 EGFR 47 08/07/2024 EGFR >60 07/30/2023 EGFR >60 06/05/2022 MICROALBCREU 299.7 (H) 08/07/2024 MICROALBCREU 316.8 (H) 10/20/2023 -avoid nephrotoxic agnets -followed by pipe stem aligner Dr. Huston Cardiac risk counseling 12/08/2023 Overview [...] Cano last done 06/18/2022 -dental home is [facility] -Health care proxy 11/03/23 Assessment & Plan (11/20/2024 12:16 PM EDT): Assessment & Plan (11/03/2023 9:32 AM EDT): -next physical exam due after 11/05/2023 -eye care facilitated by Dr. Cano last done 06/18/2022 -dental home is [facility] -Health care proxy 11/03/23 Assessment & Plan (11/04/2022 9:18 AM EDT): -next physical exam due after 11/05/2023 -eye care facilitated by Dr. Cano last done 05/2022 -dental home is [facility] Low back pain without sciatica 11/04/2022 Overview (11/04/2022): PT referral done 11/04/2022. Assessment & Plan (11/04/2022 9:23 AM EDT): PT referral done 11/04/2022. Pre-op evaluation 08/05/2022 Overview (11/03/2023): For cataract surgery at [facility] with Dr. Gusman. Pt with mechanical valve on anticoagulation. Recommend continue anticoagulation. Will refer to cardiology to evaluate, will likely continue Coumadin but will ask about ASA. Cataract extraction is one of the only status low risk procedures where anticoagulation is not interrupted. Addendum: TC placed to [facility] to inquire on PCP question regarding if pt should hold aspirin prior to upcoming cataract surgery on 11/15/23. Per the cardiology office the pt has not been seen since November of 2022. The office is going to call the pt to try and schedule an appt before upcoming surgery on 11/15/23. After this appointment the director of application development will be able to determine what medications should or can be held. Assessment & Plan (11/03/2023 9:26 AM EDT): For cataract surgery at [facility] with Dr. Gusman. Pt with mechanical valve [...] was treated medically as if she was post-CO. Pt was started on both Aspirin and Lipitor. No longer on Plavix. She was on on Digoxin 250 mcg but this was DISCONTINUED in Dec 2012 due to sinus pauses noted at cardiac rehab and her Metoprolol was increased to 25 mg po TID, she is now on aspirin and Coumadin. Last note from cardiac surgery is dated 12/08/12. Her director of application development is Dr. Moses Dumont, note from 07/2024 reviewed -PT NEEDS ANTIBIOTIC PROPHLAXIS PRIOR TO DENTAL WORK - RX AMOXICILLIN 2G PRIOR TO DENTAL WORK -Seen by Dr. Dumont 07/2024 recommending follow up 1 year -note from Patient followed at [facility] with Dr. John Dumont [...] was treated medically as if she was post-CO. Pt was started on both Aspirin and Lipitor. No longer on Plavix. She was on on Digoxin 250 mcg but this was DISCONTINUED in Dec 2012 due to sinus pauses noted at cardiac rehab and her Metoprolol was increased to 25 mg po TID, she is now on aspirin and Coumadin. Last note from cardiac surgery is dated 12/08/12. Her director of application development is Dr. Moses Dumont, last visit 05/2018 [...] was treated medically as if she was post-CO. Pt was started on both Aspirin and Lipitor. No longer on Plavix. She was on on Digoxin 250 mcg but this was DISCONTINUED in Dec 2012 due to sinus pauses noted at cardiac rehab and her Metoprolol was increased to 25 mg po TID, she is now on aspirin and Coumadin. Last note from cardiac surgery is dated 12/08/12. Her director of application development is Dr. Moses Dumont, last visit 05/2018 [...] 41 08/30/2024 -Followed by Dr Blancas -Continue aquilesance 10mg -Continue telmisartan 80mg Assessment & Plan [...] in 2005 - Previously followed by the [facility]. Last note dated 10/03/2013. Follow up annually for mammo and office visit. - [facility] no longer accepting pt's insurance so now followed at [facility] q [address] Álvarez and [...] Phyllodes Tumor of Left Breast Excised in 2006 - Previously followed by the [facility]. Last note dated 10/03/2013. Follow up annually for mammo and office visit. - [facility] no longer accepting pt's insurance so now followed at [facility] q [address] Pryor. -Last seen by oncology on 08/25/2019. 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 Last note dated 10/03/2013. Follow up annually for mammo and office visit. - [facility] no longer accepting pt's insurance so now followed at [facility] q [address] Pryor. -Last seen by oncology on 08/25/2019. -Recent Mammo 04/11/21 BI-RADS 2 benign Atrial fibrillation (CMS/HCC) 03/26/2013 Overview (08/30/2024): - continue choric anticoagulation INR goal 2.5-3.5 due to heart valve repair -note from Patient followed at [facility] with Dr. John Dumont DO. Note from 08/24/24 reviewed. Assessment & Plan (11/20/2024 12:16 PM EDT): Assessment & Plan (03/05/2022 12:04 PM EST): - continue choric anticoagulation INR goal 2.5-3.5 due to heart valve repair Type 2 diabetes mellitus wit h stage 3b chronic kidney disease, without long-term current use of insulin 04/25/2012 Overview (12/28/2024): Diabetes is controlled. Lab Results Component Value Date HGBA1C 6.9 (A) 11/20/2024 HGBA1C 7.2 (A) 07/31/2024 HGBA1C 6.8 (A) 01/24/2024 Lab Results Component Value Date CREATININE 1.15 08/07/2024 EGFR 47 08/07/2024 MICROALBCREU 299.7 (H) 08/07/2024 MICROALBCREU 316.8 (H) 10/20/2023 LDLCHOLCAL 41 08/30/2024 -Haile/Arb: telmisartan 80mg -Statin therapy: atorvastatin 80mg -Diabetic eye exam: patient reports seeing outside OPH team -Diabetic foot exam: 11/03/23 -Continue lifestyle modifications -Continue current medications -Metformin XR 500mg -Jardiance 25mg daily, prescribed by nephrology *Last seen in [facility] clinic 12/27/24; SMBG a few times/week and post prandial only. [facility] encouraged patient to also SMBG for fasting readings for further assessment. Assessment & Plan (11/20/2024 12:16 PM EDT): [...] 80mg daily -ordered lipid panel 11/03/23 -offered [place]-3s, bu wants to trial lifestyle changes. Will recheck Dec 2023. Assessment & Plan (11/04/2022 9:07 AM EDT): Lab Results Component Value Date CHOLESTEROL 128 02/18/2022 LDLCHOL 65 02/18/2022 LDLCHOL SEE COMMENT 12/11/2021 LDLCHOL 80 12/20/2020 TRIG 225 06/05/2022 TRIG 211 (H) 02/18/2022 HDLCHOL 35 (L) 02/18/2022 CHOLHDLRAT 3.7 02/18/2022 -continue lifestyle modifications -Continue atorvastatin 80mg daily. Hypertension 04/25/2012 Overview (12/28/2024): - amlodipine 5mg once daily added by [facility] 08/10/23 -Continue lifestyle modifications -Continue current medications -telmisartan 80mg once daily restarted by cardiology team 07/2024 *Patient was last seen in [facility] clinic 12/27/24; ongoing concern of medication nonadherence due to gap in refill history however patient denies and reports strict adherence. BP has been controlled at recent visits. Follows closely with cardiology and nephrology team. Assessment & Plan (11/20/2024 12:16 PM EDT): Assessment & Plan (05/05/2023 11:56 AM EST): Blood pressure is at goal and has been at goal at home and with CD, we will continue to monitor. -Continue lifestyle [...] Encounters Date Type Department Care Team Description 12/27/2024 Travel 12/22/2024 Orders Only GENERIC EXTERNAL DATA DEPARTMENT Provider, Generic External Data 12/01/2024 Orders Only GENERIC EXTERNAL DATA DEPARTMENT Provider, Generic External Data 11/30/2024 Telephone [facility] [address] [place] [phone] Nelda Banks, MELINA Paperwork/Forms 11/23/[address] [phone] Dominique Alcaraz MD Osteopenia of multiple sites 11/20/2024 11:15 AM EDT Office Visit [address] [address] Dominique Alcaraz MD Hypertension, unspecified type (Primary Dx); Hyperlipidemia, unspecified hyperlipidemia type; History of aortic valve repair; Paroxysmal atrial fibrillation (CMS/HCC); Type 2 diabetes mellitus with chronic kidney disease, without long-term current use of insulin, unspecified CKD stage (CMS/HCC); Stage 3a chronic kidney disease (CMS/HCC); Atypical ductal hyperplasia of breast; Other specified health status; Encounter for immunization 11/20/2024 Travel 11/17/2024 Telephone [facility] [address] [place] [phone] Ginna Jaimes [place] 11/10/2024 Orders Only GENERIC EXTERNAL DATA DEPARTMENT Provider, Generic External Data 10/20/2024 Orders Only GENERIC EXTERNAL DATA DEPARTMENT Provider, Generic External Data 10/17/2024 Telephone [facility] [address] [place] [address] Dominique Alcaraz MD Chart Prep from Last 3 Months Immunizations Immunization Administration Dates Next Due Hep B, adult 05/05/2023,11/04/2022,02/04/2022 Influenza High-dose Quadriva lent Preservative Free 12/04/2021 Influenza Injectable Quadriv alant Preservative Free IIV4 MDCK 01/11/2021 Influenza injectable quadriv alent IIV4 with preservative 01/27/2018,03/19/2015 Influenza injectable quadriv alent preservative free 12/09/2019,02/06/2019 Influenza, High Dose Seasona l, Preservative Free 11/20/2024,11/23/2023 Influenza, IIV3, injectable 01/12/2018, 4,02/03/2011 Influenza, Split (incl. katia fied surface antigen) 11/17/2011 [place] SARS-CoV-2 Vaccination 05/15/2020 Novel [id number] 11/19/2015 Pfizer Covid-19 Vaccine 12+ 01/31/2021 Pfizer [...] Sign Reading Time Taken Comments Blood Pressure 130/66 12/27/2024 10:35 AM EDT Pulse 68 12/27/2024 10:35 AM EDT Temperature 37.2 C (98.9 F) [...] Description 04/30/2025 11:00 AM EST Medication Management [facility] [address] [place] [address] Martina Wesley, PharmD [address] [place] [address] Health Maintenance Due Date Last Done Comments [...] Additional history exists Lipid Panel 08/30/2025 08/30/2024, 06/10/2024, 07/30/2023, Additional history exists Alcohol/Substance Use Screening [...] Blood Pressure 130/66(2024 10:35 AM EDT) No Martina Tiwari PharmD Hemoglobin [...] [facility] Routine 10/20/2024 1:14 PM EDT LIPID PANEL, STANDARD Routine 08/30/2024 [...] RADIOGRAPHIC IMAGES Routine 03/09/2023 1:00 PM EST HM DIABETES EYE EXAM Routine 06/18/2022 HM COLONOSCOPY Routine 09/03/2018 12:11 PM EDT from Last 3 Months or Most Recently Relevant to Health Maintenance Results * (ABNORMAL) PROTHROMBIN TIME WHOLE BLD POC (12/22/2024 1:10 PM EDT) Only the most recent of4 resultswithin the time period is included. Protime 40.6(H) 11.1 - 13.5 sec [facility] 12/22/2024 1:10 PM EDT 12/22/2024 1:12 PM EDT Generic External Data Provider LAB BLOOD ORDERAB LES Final Result Performing Organization Address [facility] Co de Phone Number [facility] [address] [place] [phone] * (ABNORMAL) ~PT, ~INR - ANTI COAG CLINIC (12/22/2024 1:10 PM EDT) Only the most recent of4 resultswithin the time period is included. Prothrombin Time INR 3.4(H) 0.9 - 1.1 [facility] Comment:METER #: [id number] TERNATIONAL NORMALIZED RATIO (INR) REFERENCE RANGES Reference [...] ORDERAB LES Final Result Performing Organization Address City/[facility] Co de Phone Number [facility] [address] [place] [phone] * (ABNORMAL) POCT glycosylated hemoglobin (Hgb A1c) (11/20/2024 12:00 PM EDT) Hemoglobin A1C 6.9(A) 4.0 - 5.7 % QC Media Lot # [id number] Lot# Expiration Date [id number] Blood Capillary blood specimen / Unknown 11/20/2024 12:00 PM EDT Dominique Alcaraz MD POINT OF CARE TEST ENTER/E DIT ORDERABLES Final Result * POCT glucose manually resulted (11/20/2024 11:59 AM EDT) Glucose Blood, POC 108 60 - 200 mg/dL QC Media Lot # [id number] Lot# Expiration Date ,[id number] Blood Capillary blood specimen / Unknown 11/20/2024 11:59 AM EDT Dominique Alcaraz MD POINT OF CARE TEST ENTER/E DIT ORDERABLES Final Result * (ABNORMAL) Lipid Panel, Standard (08/30/2024 8:13 AM EDT) Triglycerides 270(H) <150 mg/dL [facility] Comment:Desirable Triglyceri de: less than 150 mg/dLBorderline High Triglyceride 150-199 mg/dLHigh Triglyceride: 200-499 mg/dLVery High Triglyceride: greater than or equal to 5OO mg/dL Cholesterol 128 <200 mg/dL [facility] Comment:Desirable Cholestero l: less than 200 mg/dLBorderline High Cholesterol: 200-239 mg/dLHigh Cholesterol: greater than 239 mg/dL LDL Cholesterol Calculated 41 <100 mg/dL [facility] Comment:Desirable LDL: less than 100 mg/dLNear Optimal/Above Optimal LDL: 110- 129 mg/dLBorderline High LDL: 130-159 mg/dLHigh LDL: 160-189 mg/dLVery High LDL: greater than or equal to 190 mg/dL HDL Cholesterol 33(L) >40 mg/dL [facility] Comment:Desirable HDL: great er than 40 mg/dL Note: This HDL assay may give artificially low results in patients with liver disease. Blood Venous blood specimen / Unknown 08/30/2024 8:13 AM EDT 08/30/2024 11:51 AM EDT Dominique Alcaraz MD LAB BLOOD ORDERABLES Final Result [facility] [address] [place] [phone] * Hepatitis C Antibody with Reflex to HCV, RNA, Quantitative, Real-Time PCR (08/07/2024 8:03 AM EDT) Hepatitis C Antibody Nonreactive Nonreactive [facility] Comment:Antibodies to HCV no t detected; does not exclude early acuteHCV infection. Blood Venous blood specimen / Unknown 08/07/2024 8:03 AM EDT 08/07/2024 11:11 AM EDT Dominique Alcaraz MD LAB BLOOD ORDERABLES Final Result [facility] [address] [place] [phone] [phone] * Mammography (05/04/2024 11:40 AM EST) [...] Most Recently Relevant to Health Maintenance Insurance [facility] [employer] (O D-SNP) DENTAL [facility] Advance Directives Documents on File Type Date Recorded Patient Family Law Mediator Expl anation Advance Directives and Living Will 11/04/2023 11:37 AM Health Care Proxy Care Teams Filter Press Pumper Relationship Specialty Start Date End Date Kieran, MD Dominique [address] [place] [address] PCP - General Family Medicine 12/20/12 Martina Wesley PharmD [address] [place] [address] Pharmacist Internal Medicine 03/12/22 Refugio Huston MD [address] [place] [phone] Nephrology 05/01/24 Chun Álvarez MD [address] [place] [address] Hematology and Oncology 05/01/24 Moses Dumont MD [address] [place] [address] Cardiology 05/01/24
--- OUTSIDE RECORDS SUMMARY | 2025-01-04 18:05 | XMS_ITS | Encounter Summary ---
Author Organization [employer] Address [address] [place] [address] Care Team Providers Care Manager Restaurant Name Role Phone Dominique Alcaraz MD Primary Care Provider Martina Wesley PharmD Unavailable Refugio Huston MD Unavailable [phone] Chun Álvarez MD Unavailable Moses Dumont MD Unavailable [phone] Reason for Visit * Reason Comments Med Refill Encounter Details Date Type Department Care Team (Late st Contact Info) Description 08/14/2024 Refill [facility] [address] [place], [place] [phone] Martina Wesley, PharmD [address] [place] [address] Primary hypertension Social History Tobacco Use Types [...] Description 04/30/2025 11:00 AM EST Medication Management [facility] [address] [place] [address] Martina Wesley PharmD [address] [place] [address] documented as of this encounter Goals Goal [...] documented as of this encounter Care Teams Manager Restaurant Relationship Specialty Start Date End Date Dominique Alcaraz MD [address] [place] [address] PCP - General Family Medicine 12/20/12 Martina Wesley PharmD [address] [place] [address] Pharmacist Internal Medicine 03/12/22 Refugio Huston MD [address] [place] [phone] Nephrology 05/01/24 Chun Álvarez MD [address] [place] [address] Hematology and Oncology 05/01/24 Moses Dumont MD [address] [place] [address] Cardiology 05/01/24 documented as of this encounter
--- OUTSIDE RECORDS SUMMARY | 2025-01-04 18:05 | XMS_ITS | Encounter Summary ---
Author Organization [employer] Address [address] [place] [address] Care Team Providers Care Emergency Room Clinician Name Role Phone Dominique Alcaraz MD Primary Care Provider + [phone] Martina Wesley PharmD Unavailable Refugio Huston MD Unavailable [phone] Chun Álvarez MD Unavailable [phone] Moses Dumont MD Unavailable [phone] Reason for Visit * Reason Comments Med Refill Encounter Details Date Type Department Care Team (Late st Contact Info) Description 05/07/2023 Refill [facility] [address] [place], [place] [phone] Dominique Alcaraz MD [address] [place], [place] [phone] Type 2 diabetes mellitus without complication, 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 detention insulin use ([facility]) Social History Tobacco Use Types Packs/Day Years [...] Description 04/30/2025 11:00 AM EST Medication Management [facility] [address] [place] [phone] JamarisMartina Larsen, PharmD [address] [place] [address] documented as of this encounter Goals Goal Patient Goal Type Associated Problems Recent Progress Patient-Stated? Author Blood Pressure < 140/90 Blood Pressure 130/66(2024 10:35 AM EDT) No Piers-Poonaml marj, Martina, PharmD Hemoglobin A1c < 7 Result Component 6.9( 12:00 PM EDT) No Jamaris-Gambl marj Martina, PharmD documented as of this encounter Visit Diagnoses Diagnosis Type 2 diabetes mellitus without complication, 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 termite treater insulin use documented in this encounter Additional Health Concerns Assessment Noted Time PHQ-9 Depression Total Score: 0 07/09/19 23 3:56 PM EDT documented as of this encounter Care Teams Emergency Room Clinician Relationship Specialty Start Date End Date Dominique Alcaraz MD [address] [place] [address] PCP - General Family Medicine 12/20/12 Martina Wesley, Irma [address] [place] [address] Pharmacist Internal Medicine 03/12/22 Refugio Huston MD [address] [place] [phone] Nephrology 05/01/24 Chun Álvarez MD [address] [place] [phone] Hematology and Oncology 05/01/24 Moses Dumont MD [address] [place] [address] Cardiology 05/01/24 documented as of this encounter
--- OUTSIDE RECORDS SUMMARY | 2025-01-04 18:05 | XMS_ITS | Encounter Summary ---
Author Organization [employer] Address [address] 7t [place] [address] Care Team Providers Care Licensed Sales Assistant Name Role Phone Dominique Alcaraz MD Primary Care Provider Martina Wesley PharmD Unavailable Refugio Huston MD Unavailable [phone] Chun Álvarez MD Unavailable Moses Dumont MD Unavailable [phone] Reason for Visit * Reason Comments Med Refill Encounter Details Date Type Department Care Team (Late st Contact Info) Description 08/18/2024 Refill [facility] [address] [place], [place] [phone] Martina Wesley, PharmD 230 [place] [address] Primary hypertension Social History Tobacco Use Types [...] Description 04/30/2025 11:00 AM EST Medication Management [facility] 230 [place] [address] Martina Wesley PharmD [address] [place] [address] documented as of this encounter Goals Goal Patient Goal Type Associated Problems Recent Progress Patient-Stated? Author Blood Pressure < 140/90 Blood Pressure 130/66(2024 10:35 AM EDT) No Piers-Gambl marj, Martina, PharmD Hemoglobin A1c < 7 Result Component 6.9( 12:00 PM EDT) No Piers-Gambl Maria Isabel mcmahansa, PharmD documented as of this encounter Visit Diagnoses Diagnosis Primary hypertension Unspecified essential hypertension documented in this encounter Additional Health Concerns Assessment Noted Time PHQ-9 Depression Total Score: 8 11/03/19 24 9:00 AM EDT documented as of this encounter Care Teams Licensed Sales Assistant Relationship Specialty Start Date End Date Dominique Alcaraz MD [address] [place] [address] PCP - General Family Medicine 12/20/12 Martina Wesley, BetsyD [address] [place] [address] Pharmacist Internal Medicine 03/12/22 [place] [address] [place] [phone] Nephrology 05/01/24 Chun Álvarez MD [address] [place] [address] Hematology and Oncology 05/01/24 Moses Dumont MD [address] [place] [address] Cardiology 05/01/24 documented as of this encounter
--- OUTSIDE RECORDS SUMMARY | 2025-01-04 18:05 | XMS_ITS | Encounter Summary ---
Author Organization [employer] Address [address] 7t [place] [address] Care Team Providers Care Spindraw Operator Name Role Phone Dominique Alcaraz MD Primary Care Provider + [phone] Martina Wesley PharmD Unavailable [phone] Refugio Huston MD Unavailable [phone] Chun Álvarez MD Unavailable [phone] Moses Dumont MD Unavailable [phone] Encounter Details Date Type Department Care Team (Late st Contact Info) Description 05/04/2024 Abstract [facility]INE 230 [place] [address] Sunitha Singleton MA Social History Tobacco Use [...] 11:00 AM EST Medication Management [facility] [address] [place] [address] JamarisMartina Larsen, PharmD 230 [place] [address] documented as of this encounter Goals Goal Patient Goal Type Associated Problems Recent Progress Patient-Stated? Author Blood Pressure < 140/90 Blood Pressure 130/66(2024 10:35 AM EDT) No Jamaris-Poonaml marj, Martina, PharmD Hemoglobin A1c < 7 Result Component 6.9( 12:00 PM EDT) No JamarisMaria Isabel Levinesa, PharmD documented as of this encounter Procedures [...] documented as of this encounter Care Teams Spindraw Operator Relationship Specialty Start Date End Date Dominique Alcaraz MD 230 [place] [address] PCP - General Family Medicine 12/20/12 Martina Wesley, PharmD 230 [place] [address] Pharmacist Internal Medicine 03/12/22 Refugio Huston MD [address] [place] [address] Nephrology 05/01/24 Chun Álvarez MD 575 [place] [address] Hematology and Oncology 05/01/24 Moses Duomnt MD 5[address] [place] [address] Cardiology 05/01/24 documented as of this encounter
--- OUTSIDE RECORDS SUMMARY | 2025-01-04 18:05 | XMS_ITS | Encounter Summary ---
Author Organization [employer] Address [address] 7t [place] [address] Care Team Providers Care Factory Helper Name Role Phone Dominique Alcaraz MD Primary Care Provider Martina Wesley PharmD Unavailable Refugio Huston MD Unavailable [phone] Chun Álvarez MD Unavailable [phone] Moses Dumont MD Unavailable [phone] Encounter Details Date Type Department Care Team (Late st Contact Info) Description 05/01/2024 Orders Only [facility] 230 [place], [place] [phone] Dominique Alcaraz MD 230 [place] [address] Type 2 diabetes mellitus with chronic kidney [...] t he electric, gas, oil or water [employer] threatened to shut off services in your [...] Description 04/30/2025 11:00 AM EST Medication Management [facility] [address] [place] [address] Martina Wesley PharmD 230 [place] [address] documented as of this encounter Goals Goal [...] EST) Protime 27.7(H) 11.1 - 13.5 sec [facility] 05/01/2024 1:32 PM EST 05/01/2024 1:34 PM EST us Generic External Data Provider LAB BLOOD ORDERAB LES Final Result Performing Organization Address [facility] Co de Phone Number [facility] [address] [place] [address] [phone] * (ABNORMAL) ~PT, ~INR - ANTI COAG CLINIC (05/01/2024 1:32 PM EST) Prothrombin Time INR 2.3(H) 0.9 - 1.1 [facility] Comment:METER #: [id number] TERNATIONAL NORMALIZED RATIO (INR) REFERENCE RANGES Reference [...] ORDERAB LES Final Result Performing Organization Address [facility] Co de Phone Number [facility] [address] [place] [phone] documented in this encounter Visit Diagnoses [...] documented as of this encounter Care Teams Factory Helper Relationship Specialty Start Date End Date Dominique Alcaraz MD 230 [place] [address] PCP - General Family Medicine 12/20/12 Martina Wesley PharmD [address] [place] [address] Pharmacist Internal Medicine 03/12/22 Refugio Huston MD [address] [place] [address] Nephrology 05/01/24 Chun Álvarez MD 575 [place] [address] Hematology and Oncology 05/01/24 Moses Dumont MD [address] [place] [address] Cardiology 05/01/24 documented as of this encounter
== END 2025-01-04 15:29 | disposition home or self-care (01) ==
LOC: HO.HCS 14:57
PROVIDERS: PCP Family Medicine; Visit Provider Internal Medicine
DX: Z95.2 Presence of prosthetic heart valve (principal); Z98.890 Other specified postprocedural states; Z86.79 Personal history of other diseases of the circulatory system; I48.0 Paroxysmal atrial fibrillation
CPT/HCPCS: 93010; 99204; G2211

== ENCOUNTER → 2025-01-04 14:57 | Outpatient (BNVA) | payer OTHER, SELFPAY | PROVIDERS: PCP Family Medicine; Visit Provider Internal Medicine | DX: I48.0 Paroxysmal atrial fibrillation (principal); Z95.2 Presence of prosthetic heart valve | CPT/HCPCS: 93005; 99202 ==

== ENCOUNTER 2025-01-12 13:00 | Outpatient (AMB) | payer OTHER, SELFPAY ==
--- NOTE | 2025-01-12 13:40 | MHC.OFFVISCO ---
Intake Intake Visit Reasons: Anticoagulation Allergies lisinopril (LISINOPRIL) Allergy (Intermediate, Verified 01/12/25 13:29) rash/cough, palpitations Medication List - Last Reconciled 01/12/25 by Kianna Aviles RN amlodipine 5 mg PO DAILY aspirin 81 mg PO DAILY atorvastatin 80 mg PO BEDTIME blood sugar diagnostic (FreeStyle Lite Strips) As directed blood-glucose meter (FreeStyle Sheridan Lite kit) As directed calcium carbonate (Calcium Antacid) 200 mg PO DAILY cholecalciferol (vitamin D3) (Vitamin D3) 25 mcg PO DAILY cyanocobalamin (vitamin B-12) (Vitamin B-12) 500 mcg PO DAILY empagliflozin (Jardiance) 25 mg PO DAILY ferrous sulfate 325 mg PO DAILY lancets (TRUEplus Lancets) As directed metformin ER 500 mg PO QPM metoprolol tartrate 1 tab PO BID telmisartan (Micardis) 80 mg PO DAILY warfarin 5 mg See Protocol PO DIRECTED warfarin 2.5 mg See Protocol PO DIRECTED Nursing Note INR: 2.3 almost therapeutic range 2.5-3.5- ate more avocado Medications and supplements reviewed No changes in health, diet, medications, or supplements, Denies any signs and symptoms of bleeding or bruising or clotting. Bleeding, bruising, clotting discussed Nutritional guidance given - no greens x 3 days, eat orange and reds today Dose: keep same dose 5mg x 2 days / 2.5mg x 5 days F/U INR: 3 weeks Patient verbalizes understanding of instructions given Anti-Coag Initial Assessment Social Hx Patient Tobacco Use Status: Never used Tobacco alcohol intake: former Alcohol intake frequency: does not drink Coding Level of Care Code Est Patient Level 1 Diagnoses Current use of anticoagulant therapy Z79.01 Results AMB INR Fingerstick AMB INR Fingerstick 2.3 Last Edit by Kianna Aviles RN on 01/12/25 13:35 manual entry Assessment & Plan Assessment & Plan (1) Current use of anticoagulant therapy: Code(s): Z79.01 - nursing home (current) 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
[2025-01-12 13:44] LABS: Prothrombin Time Whole Bld POC 28.1 sec (11.1-13.5); ~PT, ~INR - Anti Coag Clinic 2.3 (0.9-1.1)
--- OUTSIDE RECORDS SUMMARY | 2025-01-12 19:01 | XMS_ITS | Encounter Summary ---
Author Organization [facility] Address [address] [place] [address] Phone Care Team Providers Care Outdoor Education Teacher Name Role Phone Unavailable Primary Care Provider Unavailabl e Reason for Visit * Reason Comments Med Refill Encounter Details Date Type Department Care Team (Late Contact Info) Description 02/18/2021 Refill [facility] [address] [place] [address] Lyle Blancas MD [address] [place] [address] Social History Tobacco Use Types [...] Visit [facility] [place], [address] [place] [address] Refugio Huston MD [address] [place] [address] documented as of this encounter Visit Diagnoses Not on filedocumented in this encounter
--- OUTSIDE RECORDS SUMMARY | 2025-01-12 19:01 | XMS_ITS | Encounter Summary ---
Author Organization [facility] Address [address] [place] [address] Phone Care Team Providers Care Photolithographic Stripper Name Role Phone Unavailable Primary Care Provider Unavailabl e Encounter Details Date Type Department Care Team (Late st Contact Info) Description 11/04/2021 Documentation Only [facility] [address] [place] [address] Cesia Perry PA [address] [place] [address] Social History Tobacco Use Types [...] Visit [facility] [address] [place] [address] Refugio Huston MD [address] [place] [address] documented as of this encounter Visit Diagnoses Not on filedocumented in this encounter
--- OUTSIDE RECORDS SUMMARY | 2025-01-12 19:01 | XMS_ITS | Encounter Summary ---
Author Organization [facility] Address [address] [place] [address] Phone Care Team Providers Care Radiator Specialist Name Role Phone Unavailable Primary Care Provider Unavailabl e Encounter Details Date Type Department Care Team (Late st Contact Info) Description 10/17/2021 Orders Only [facility] [address] [place] [address] Lyle Blancas MD [address] [place] [address] [place] [address] Stage 3a chronic kidney disease [...] [facility] [address] [place] [address] Refugio Huston MD [address] [place] [address] [place] [address] Scheduled Orders Name Type Priority [...]
--- OUTSIDE RECORDS SUMMARY | 2025-01-12 19:01 | XMS_ITS | Encounter Summary ---
Author Organization [facility] [place], Address [address] [place] [address] Phone Care Team Providers Care Shade Classifier Name Role Phone Unavailable Primary Care Provider Unavailabl e Encounter Details Date Type Department Care Team (Late st Contact Info) Description 06/08/2022 Documentation Only [facility] [place] [facility], [address] [place] [phone] Cesia Perry PA [address] [place] [address] Social History Tobacco Use Types Packs/Day Years [...] on file documented as of this encounter Functional Status * Question Answer Date of Assessment Author BP 132/76 06/09/2022 5:03 PM EDCesia Jones PA Height 62 06/09/2022 5:03 PM Cesia Sam PA Weight 2201.6 06/09/2022 5:03 PM Cesia Sam PA * BMI (Calculated) Answer Date of Assessment Author 25.2 06/09/2022 5:03 PM Cesia Matamoros PA * BP Location Answer Date of Assessment Author Right upper arm 06/09/2022 5:03 PM Cesia Matamoros PA * Question Answer Date of Assessment Author BP 132/76 06/09/2022 5:03 PM EDT Cesia Mackay PA Height 62 06/09/2022 5:03 PM EDT Cesia Mackay PA Weight 2201.6 06/09/2022 5:03 PM EDT Cesia Mackay PA * BMI (Calculated) Answer Date of Assessment Author 25.2 06/09/2022 5:03 PM EDT Cesia Perry PA * BP Location Answer Date of Assessment Author Right upper arm 06/09/2022 5:03 PM EDT Cesia Perry PA documented as of this encounter Plan of Treatment Upcoming Encounters Date Type Department Care Team (Late st Contact Info) Description 01/16/2025 10:10 AM EST Office Visit [facility] [place], [address] [place] [address] Refugio Huston MD [address] [place] [place] [address] documented as of this encounter Visit Diagnoses Not on filedocumented in this encounter
--- OUTSIDE RECORDS SUMMARY | 2025-01-12 19:01 | XMS_ITS | Encounter Summary ---
Author Organization [facility] Address [address] [place] [address] Phone Care Team Providers Care Agriculturist Name Role Phone Unavailable Primary Care Provider Unavailabl e Encounter Details Date Type Department Care Team (Late st Contact Info) Description 10/27/2023 Documentation Only [facility] [place], [address] [place] [address] Michelle Linares [address] [place] [address] Social History Tobacco Use Types [...] Question Answer Date of Assessment Author BP 132/74 10/27/2023 2:11 PM EDT Cesia Mackay PA Height 62 10/27/2023 2:11 PM JUDIT Cesia Mackay PA Weight 2195.2 10/27/2023 2:11 PM Cesia Sam PA * BMI (Calculated) Answer Date of Assessment Author 25.1 10/27/2023 2:11 PM Cesia Matamoros PA * BP Location Answer Date of Assessment Author Right upper arm 10/27/2023 2:11 PM Cesia Matamoros PA * Question Answer Date of Assessment Author BP 132/74 10/27/2023 2:11 PM EDT Cesia Mackay PA Height 62 10/27/2023 2:11 PM EDT Cesia Mackay PA Weight 2195.2 10/27/2023 2:11 PM EDT Cesia Mackay PA * BMI (Calculated) Answer Date of Assessment Author 25.1 10/27/2023 2:11 PM EDT Cesia Perry PA * BP Location Answer Date of Assessment Author Right upper arm 10/27/2023 2:11 PM EDT Cesia Perry PA documented as of this encounter Plan of Treatment Upcoming Encounters Date Type Department Care Team (Late st Contact Info) Description 01/16/2025 10:10 AM EST Office Visit [facility] [address] [place] [address] Refugio Huston MD [address] [place] [address] documented as of this encounter Visit Diagnoses Not on filedocumented in this encounter
--- OUTSIDE RECORDS SUMMARY | 2025-01-12 19:02 | XMS_ITS | Encounter Summary ---
Author Organization [facility] Address [address] [place] [address] Phone Care Team Providers Care Blending Tank Tender Helper Name Role Phone Unavailable Primary Care Provider Unavailabl e Encounter Details Date Type Department Care Team (Late st Contact Info) Description 03/12/2023 Documentation Only [facility] [address] [place] [address] Cesia Perry PA [address] [place] [address] Social History Tobacco Use Types [...] Visit [facility] [address] [place] [address] Refugio Huston MD [address] [place] [address] documented as of this encounter Visit Diagnoses Not on filedocumented in this encounter
--- OUTSIDE RECORDS SUMMARY | 2025-01-12 19:02 | XMS_ITS | Encounter Summary ---
Author Organization [employer] Address [address] [facility] 7t [place] [address] Care Team Providers Care Cable Spooler Name Role Phone Dominique Alcaraz MD Primary Care Provider + [phone] Martina Wesley PharmD Unavailable [phone] Refugio Huston MD Unavailable [phone] Chun Álvarez MD Unavailable [phone] Moses Dumont MD Unavailable [phone] Brody Barros MD Unavailable [phone] Encounter Details Date Type Department Care Team (Late st Contact Info) Description 12/08/2023 Orders Only [facility] [address] [place], [place] [phone] Provider, MD Christiano Social History Tobacco Use Types Packs/Day Years Used Date Smoking Tobacco: Never Smokeless Tobacco: Never Depression Answer Date Recorded Patient Health Questionnaire-9 Score 8 11/03/2023 Patient Health Questionnaire-9 Score 8 11/03/2023 Last PHQ-9: Questionnaire Data Not on file 0 11/03/2023 Housing Stability Answer Date Recorded What is your housing situation today? I have jase guillermo 11/03/[address] you li [...] Description 04/30/2025 11:00 AM EST Medication Management [facility] 230 [place] [address] Martina Wesley PharmD [address] [place] [address] documented as of this encounter Goals Goal Patient Goal Type Associated Problems Recent Progress Patient-Stated? Author Blood Pressure < 140/90 Blood Pressure 130/66(2024 10:35 AM EDT) No Jamaris-Maria Isabel Jaffesa, PharmD Hemoglobin A1c < 7 Result Component 6.9( 12:00 PM EDT) No Jamaris-Poonaml marj, Martina, PharmD documented as [...] documented as of this encounter Care Teams Cable Spooler Relationship Specialty Start Date End Date Dominique Alcaraz MD [address] [place] [address] PCP - General Family Medicine 12/20/12 Martina Wesley, BetsyD [address] [place] [address] Pharmacist Internal Medicine 03/12/22 [place] [address] [place] [phone] Nephrology 05/01/24 Chun Álvarez MD [address] [place] [address] Hematology and Oncology 05/01/24 Moses Dumont MD [address] [place] [address] Cardiology 05/01/24 01/04/25 Brody Barros MD [address] [place] [address] Cardiology 01/05/25 documented as of this encounter
--- OUTSIDE RECORDS SUMMARY | 2025-01-12 19:02 | XMS_ITS | Encounter Summary ---
Author Organization [employer] Address [address] [facility] 7t [place] [address] Care Team Providers Care Machine Deicer Element Winder Name Role Phone Dominique Alcaraz MD Primary Care Provider [phone] Martina Wesley PharmD Unavailable Refugio Huston MD Unavailable [phone] Chun Álvarez MD Unavailable [phone] Moses Dumont MD Unavailable Brody Barros MD Unavailable [phone] Encounter Details Date Type Department Care Team (Late st Contact Info) Description 10/30/2022 Abstract [facility] 230 [place] [address] Dominique Alcaraz MD [address] [place], [place] [phone] Social History Tobacco Use Types Packs/Day Years [...] Description 04/30/2025 11:00 AM EST Medication Management [facility] [address] [place] [address] Martina Wesley PharmD [address] [place] [address] documented as of this encounter Goals Goal [...] as of this encounter Care Teams Machine Deicer Element Winder Relationship Specialty Start Date End Date Dominique Alcaraz MD 230 [place] [address] PCP - General Family Medicine 12/20/12 Martina Wesley PharmD [address] [place] [address] Pharmacist Internal Medicine 03/12/22 [place] [address] [place] [phone] Nephrology 05/01/24 Chun Álvarez MD [address] [place] [address] Hematology and Oncology 05/01/24 Moses Dumont MD [address] [place] [address] Cardiology 05/01/24 01/04/25 Brody Barros MD [address] [place] [address] Cardiology 01/05/25 documented as of this encounter
--- OUTSIDE RECORDS SUMMARY | 2025-01-12 19:02 | XMS_ITS | Encounter Summary ---
Author Organization [facility] Address [address] [place] [address] Phone Care Team Providers Care Clerical Assigner Name Role Phone Unavailable Primary Care Provider Unavailabl e Encounter Details Date Type Department Care Team (Late Contact Info) Description 06/30/2024 Documentation Only [facility] [address] [place] [address] Priscilla Buitrago [place] [address] [place] [address] Social History Tobacco Use Types [...] Visit [facility] [address] [place] [address] Refugio Huston MD [address] [place] [address] [place] [address] documented as of this encounter Visit Diagnoses Not on filedocumented in this encounter
--- OUTSIDE RECORDS SUMMARY | 2025-01-12 19:02 | XMS_ITS | Encounter Summary ---
Author Organization [employer] Address [address] 7t [place] [address] Care Team Providers Care Clinic Specialist Name Role Phone Dominique Alcaraz MD Primary Care Provider + [phone] Martina Wesley PharmD Unavailable [phone] Refugio Huston MD Unavailable [phone] Chun Álvarez MD Unavailable [phone] Brody Barros MD Unavailable [phone] Encounter Details Date Type Department Care Team (Late st Contact Info) Description 01/12/2025 Orders Only [facility] EXTERNAL DATA DEPARTMENT Provider, [...] Description 04/30/2025 11:00 AM EST Medication Management [facility] 230 [place] [address] Martina Wesley PharmD [address] [place] [address] documented as of this encounter Goals Goal [...] Comments PROTHROMBIN TIME WHOLE BLD POC Routine 01/12/2025 1:32 PM EST ~PT, ~INR - ANTI COAG CLINIC Routine 01/12/2025 1:32 PM EST documented in this encounter Results * (ABNORMAL) PROTHROMBIN TIME WHOLE BLD POC (01/12/2025 1:32 PM EST) Protime 28.1(H) 11.1 - 13.5 sec [facility] 01/12/2025 1:32 PM EST 01/12/2025 1:44 PM EST us Generic External Data Provider LAB BLOOD ORDERAB LES Final Result Performing Organization Address [facility] Co de Phone Number [facility] [address] [place] [address] [phone] * (ABNORMAL) ~PT, ~INR - ANTI COAG CLINIC (01/12/2025 1:32 PM EST) Prothrombin Time INR 2.3(H) 0.9 - 1.1 [facility] Comment:METER #: [id number] TERNATIONAL NORMALIZED RATIO (INR) REFERENCE RANGES Reference RangeFor patients not on anticoagulant therapy: 0.9 - 1.1INR ranges for oral anticoagulanttherapy:For prevention and treatment of venous thrombosis and pulmonary embolism: 2.0 - 3.0For acute myocardial infarction with aspirin therapy: 2.0 - 3.0For acute myocardial infarction without aspirin therapy: 3.0 - 4.0For patients with mechanical prosthetic heart valves: 2.5 - 3.5 01/12/2025 1:32 PM EST 01/12/2025 1:44 PM EST us Generic External Data Provider LAB BLOOD ORDERAB LES Final Result Performing Organization Address [facility] Co de Phone Number [facility] [address] [place] [address] [phone] documented in this encounter Visit Diagnoses Not on filedocumented in this encounter Additional Health Concerns Assessment Noted Time PHQ-9 Depression Total Score: 0 11/21/19 25 11:58 AM EDT documented as of this encounter Care Teams Clinic Specialist Relationship Specialty Start Date End Date Dominique Alcaraz MD [address] [place] [address] PCP - General Family Medicine 12/20/12 Martina Wesley PharmD [address] [place] [address] Pharmacist Internal Medicine 03/12/22 [place] [address] [place] [phone] Nephrology 05/01/24 Chun Álvarez MD [address] [place] [address] Hematology and Oncology 05/01/24 Brody Barros MD [address] [place] [address] Cardiology 01/05/25 documented as of this encounter
--- OUTSIDE RECORDS SUMMARY | 2025-01-12 19:02 | XMS_ITS | Clinical Summary ---
Author Organization [facility], Address [address] [place] [address] [place] [address] Phone Care Team Providers Care Underwater Hunter Name Role Phone Unavailable Primary Care Provider [...] Only [facility], [address] [place] [address] Ro Yang [place] from Last 3 Months Immunizations Immunization [...] Visit [facility], [address] [place] [phone] Refguio Huston MD [address] [place] [id number] Health Maintenance Due Date Last Done Comments [...] to complete this topic Insurance Medicaid [place] [facility] Dual SNP ([id number])
--- OUTSIDE RECORDS SUMMARY | 2025-01-12 19:03 | XMS_ITS | Encounter Summary ---
Author Organization [employer] Address [address] [place] [address] Care Team Providers Care Ortho Rn Name Role Phone Dominique Alcaraz MD Primary Care Provider Martina Wesley PharmD Unavailable [phone] Refugio Huston MD Unavailable [phone] Chun Álvarez MD Unavailable [phone] Moses Dumont MD Unavailable [phone] Brody Barros MD Unavailable Reason for Visit * Reason Comments Med Refill Encounter Details Date Type Department Care Team (Late st Contact Info) Description 05/07/2023 Refill [facility] [address] [place], [place] [phone] Dominique Alcaraz MD [address] [place], [place] [phone] Type 2 diabetes mellitus without complication, 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 middle or intermediate school principal insulin use ([facility]) Social History Tobacco Use Types Packs/Day [...] Description 04/30/2025 11:00 AM EST Medication Management [facility] [address] [place] [address] Martina Wesley PharmD [address] [place] [address] documented as of this encounter Goals Goal Patient Goal Type Associated Problems Recent Progress Patient-Stated? Author Blood Pressure < 140/90 Blood Pressure 130/66(2024 10:35 AM EDT) No Jamaris-Maria Isabel Jaffesa, PharmD Hemoglobin A1c < 7 Result Component 6.9( 12:00 PM EDT) No JamarisMaria Isabel Levinesa, PharmD documented as of this encounter Visit Diagnoses Diagnosis Type 2 diabetes mellitus without complication, 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 custodial insulin use documented in this encounter Additional Health Concerns Assessment Noted Time PHQ-9 Depression Total Score: 0 07/09/19 23 3:56 PM EDT documented as of this encounter Care Teams Ortho Rn Relationship Specialty Start Date End Date Dominique Alcaraz MD [address] [place] [address] PCP - General Family Medicine 12/20/12 Martina Wesley PharmD [address] [place] [address] Pharmacist Internal Medicine 03/12/22 Refugio Huston MD [address] [place] [phone] Nephrology 05/01/24 Chun Álvarez MD [address] [place] [address] Hematology and Oncology 05/01/24 Moses Dumont MD [address] [place] [address] Cardiology 05/01/24 01/04/25 Brody Barros MD [address] [place] [address] Cardiology 01/05/25 documented as of this encounter
--- OUTSIDE RECORDS SUMMARY | 2025-01-12 19:03 | XMS_ITS | Encounter Summary ---
Author Organization [employer] Address [address] [place] [address] Care Team Providers Care Shoe Repairer Name Role Phone Dominique Alcaraz MD Primary Care Provider + [phone] Martina Wesley PharmD Unavailable Refugio Huston MD Unavailable [phone] Chun Álvarez MD Unavailable [phone] Moses Dumont MD Unavailable [phone] Brody Barros MD Unavailable [phone] Reason for Visit * Reason Onset Date Comments Pre op 09/23/2023 Encounter Details Date Type Department Care Team (Late st Contact Info) Description 09/23/2023 Telephone [facility] [address] [place], [place] [phone] Dominique Alcaraz MD [address] [place], [place] [phone] Pre op Social History Tobacco Use Types [...] No Surgeon's name: mercedes mohan Facility name: [address], [place] [address] Surgeon's office number: [phone] Surgeon's office fax number: [phone] Contact name (person you spoke with): [place] Last office note from surgeon requested: No * Telephone Encounter - Bharti Fregoso - 09/23/2023 12:23 PM EDT Date of Surgery: right eye 11/15/23 and left eye 11/28 Surgical procedure being done: cataract surgery both eyes Type of anesthesia: local anesthesia Lab needed: No EKG: No Surgeon's name: [facility] name: [address], [place] [address] Surgeon's office number: [phone] Surgeon's office fax number: [phone] Contact name (person you spoke with): [place] Last office note from surgeon requested: No documented in this encounter Plan of Treatment Upcoming Encounters Date Type Department Care Team (Late st Contact Info) Description 04/30/2025 11:00 AM EST Medication Management [facility] [address] [place] [address] JamarisMartina Larsen, PharmD [address] [place] [address] documented as of this encounter Goals Goal Patient Goal Type Associated Problems Recent Progress Patient-Stated? Author Blood Pressure < 140/90 Blood Pressure 130/66(2024 10:35 AM EDT) No Jamaris-Poonaml marj, Mratina, PharmD Hemoglobin A1c < 7 Result Component 6.9( 12:00 PM EDT) No Jamaris-Poonaml eMaria Isabelsa, PharmD documented as of this encounter Visit Diagnoses Not on filedocumented in this encounter Additional Health Concerns Assessment Noted Time PHQ-9 Depression Total Score: 0 07/09/19 23 3:56 PM EDT documented as of this encounter Care Teams Shoe Repairer Relationship Specialty Start Date End Date Dominique Alcaraz MD [address] [place], [place] PCP - General Family Medicine 12/20/12 Jamaris-Martina Still, PharmD [address] [place] [address] Pharmacist Internal Medicine 03/12/22 Refugio Huston MD [address] [place] [address] Nephrology 05/01/24 Chun Álvarez MD [address] [place] [address] Hematology and Oncology 05/01/24 Moses Dumont MD [address] [place] [address] Cardiology 05/01/24 01/04/25 Brody Barros MD [address] [place] [address] Cardiology 01/05/25 documented as of this encounter
--- OUTSIDE RECORDS SUMMARY | 2025-01-12 19:03 | XMS_ITS | Encounter Summary ---
Author Organization [employer] Address [address] [place] [address] Care Team Providers Care Sas Sql Developer Name Role Phone Dominique Alcaraz MD Primary Care Provider + [phone] Martina Wesley PharmD Unavailable [phone] Refugio Huston MD Unavailable [phone] Chun Álvarez MD Unavailable [phone] Moses Dumont MD Unavailable [phone] Brody Barros MD Unavailable [phone] Encounter Details Date Type Department Care Team (Late st Contact Info) Description 05/04/[address] [facility] [address] [place] [address] Sunitha Singleton [place] Social History Tobacco Use [...] 11:00 AM EST Medication Management [facility] [address] [place] [address] Martina Wesley PharmD [address] [place] [address] documented as of this encounter Goals Goal Patient Goal Type Associated Problems Recent Progress Patient-Stated? Author Blood Pressure < 140/90 Blood Pressure 130/66(2024 10:35 AM EDT) No Martina Tiwari, PharmD Hemoglobin A1c [...] documented as of this encounter Care Teams Sas Sql Developer Relationship Specialty Start Date End Date Dominique Alcaraz MD [address] [place] [address] PCP - General Family Medicine 12/20/12 Martina Wesley, BetsyD [address] [place] [address] Pharmacist Internal Medicine 03/12/22 Refugio Huston MD [address] [place] [address] Nephrology 05/01/24 Chun Álvarez MD [address] [place] [address] Hematology and Oncology 05/01/24 Moses Dumont MD [address] [place] [address] Cardiology 05/01/24 01/04/25 Brody Barros MD [address] [place] [address] Cardiology 01/05/25 documented as of this encounter
--- OUTSIDE RECORDS SUMMARY | 2025-01-12 19:03 | XMS_ITS | Encounter Summary ---
Author Organization [employer] Address [address] [place] [address] Care Team Providers Care Business Services Vice President Name Role Phone Dominique Alcaraz MD Primary Care Provider + [phone] Martina Wesley PharmD Unavailable Refugio Huston MD Unavailable [phone] Chun Álvarez MD Unavailable [phone] Moses Dumont MD Unavailable [phone] Brody Barros MD Unavailable [phone] Reason for Visit * Reason Comments Med Refill Encounter Details Date Type Department Care Team (Late st Contact Info) Description 03/17/2023 Refill [facility] [address] [place], [place] [phone] Dominique Alcaraz MD [address] [place], [place] [phone] Vitamin D deficiency; Stage 2 chronic kidney [...] Description 04/30/2025 11:00 AM EST Medication Management [facility] [address] [place] [address] JamarisMartina Larsen, PharmD [address] [place] [address] documented as of this encounter Goals Goal Patient Goal Type Associated Problems Recent Progress Patient-Stated? Author Blood Pressure < 140/90 Blood Pressure 130/66(2024 10:35 AM EDT) No Piers-Poonaml marj, Martina, PharmD Hemoglobin A1c < 7 Result Component 6.9( 12:00 PM EDT) No Piers-Gambl marj, Martina, PharmD documented as of this encounter Visit Diagnoses Diagnosis Vitamin D deficiency Stage 2 chronic kidney disease documented in this encounter Additional Health Concerns Assessment Noted Time PHQ-9 Depression Total Score: 0 07/09/19 23 3:56 PM EDT documented as of this encounter Care Teams Business Services Vice President Relationship Specialty Start Date End Date Dominique Alcaraz MD [address] [place] [address] PCP - General Family Medicine 12/20/12 Martina Wesley, BetsyD [address] [place] [address] Pharmacist Internal Medicine 03/12/22 Refugio Huston MD [address] [place] [address] Nephrology 05/01/24 Chun Álvarez MD [address] [place] [address] Hematology and Oncology 05/01/24 Moses Dumont MD [address] [place] [address] Cardiology 05/01/24 01/04/25 Brody Barros MD [address] [place] [address] Cardiology 01/05/25 documented as of this encounter
--- OUTSIDE RECORDS SUMMARY | 2025-01-12 19:03 | XMS_ITS | Clinical Summary ---
Author Organization [employer] Address [address] [place] [address] Care Team Providers Care Beauty Artist Name Role Phone Dominique Alcaraz MD Primary Care Provider + [phone] Martina Wesley PharmD Unavailable [phone] Refugio Huston MD Unavailable [phone] Chun Álvarez MD Unavailable [phone] Brody Barros MD Unavailable [phone] Allergies Active Allergy Reactions Criticality Noted Date [...] TABLET BY MOUTH TWICE DAILY 60 tablet 025 Active TRUEplus Lancets 33G miscIndications:T ype [...] TABLET BY MOUTH TWICE DAILY 60 tablet 025 Active cyanocobalamin (Vitamin B-12) 500 MCG tablet Take 500 mcg by mouth Once per day. PT PURCHASING OTC 2024 Discontinued(M ed list cleanup (will not trigger notification to Pharmacy)) Active Problems Patient Care Coordination No te Formatting of this note migh t be different from the original. Enrolled in [facility] DM and [facility] HTN clinic with Martina Wesley, BetsyD, [facility] Fibre Technologist: Jaci Pecan Sheller Agency: [facility] Problem Noted Date Diagnosed Date Stage 3b chronic kidney disease (CMS/HCC) 2024 Overview (12/20/2024): Lab Results Component Value Date CREATININE 1.15 08/07/2024 CREATININE 0.85 07/30/2023 CREATININE 0.86 06/05/2022 EGFR 47 08/07/2024 EGFR >60 07/30/2023 EGFR >60 06/05/2022 MICROALBCREU 299.7 (H) 08/07/2024 MICROALBCREU 316.8 (H) 10/20/2023 -avoid nephrotoxic agnets -followed by power plant mechanic Dr. Huston Cardiac risk counseling 12/08/2023 Overview [...] and nutrition interventions discussed. Depression, recurrent 11/03/2023 Overview (01/05/2025): Denies suicidial or homacidial ideation. Therapist and psychiatrist offered. Encounter for hepatitis C sc reening test [...] Cano last done 06/18/2022 -dental home is [facility] -Health care proxy 11/03/23 Assessment & Plan (11/20/2024 12:16 PM EDT): Assessment & Plan (11/03/2023 9:32 AM EDT): -next physical exam due after 11/05/2023 -eye care facilitated by Dr. Cano last done 06/18/2022 -dental home is [facility] -Health care proxy 11/03/23 Assessment & Plan (11/04/2022 9:18 AM EDT): -next physical exam due after 11/05/2023 -eye care facilitated by Dr. Cano last done 05/2022 -dental home is [facility] Low back pain without sciatica 11/04/2022 Overview (11/04/2022): PT referral done 11/04/2022. Assessment & Plan (11/04/2022 9:23 AM EDT): PT referral done 11/04/2022. Pre-op evaluation 08/05/2022 Overview (11/03/2023): For cataract surgery at [facility] with Dr. Gusman. Pt with mechanical valve [...] surgery on 11/15/23. After this appointment the administration assistant will be able to determine what medications should or can be held. Assessment & Plan (11/03/2023 9:26 AM EDT): For cataract surgery at [facility] with Dr. Gusman. Pt with mechanical valve [...] was treated medically as if she was post-CA. Pt was started on both Aspirin and Lipitor. No longer on Plavix. She was on on Digoxin 250 mcg but this was DISCONTINUED in Dec 2012 due to sinus pauses noted at cardiac rehab and her Metoprolol was increased to 25 mg po TID, she is now on aspirin and Coumadin. Last note from cardiac surgery is dated 12/08/12. Her administration assistant is Dr. Moses Dumont, note from 07/2024 reviewed -PT NEEDS ANTIBIOTIC PROPHLAXIS PRIOR TO DENTAL WORK - RX AMOXICILLIN 2G PRIOR TO DENTAL WORK -Seen by Dr. Dumont 07/2024 recommending follow up 1 year -note from Patient followed at [facility] with Dr. John [...] was treated medically as if she was post-CA. Pt was started on both Aspirin and Lipitor. No longer on Plavix. She was on on Digoxin 250 mcg but this was DISCONTINUED in Dec 2012 due to sinus pauses noted at cardiac rehab and her Metoprolol was increased to 25 mg po TID, she is now on aspirin and Coumadin. Last note from cardiac surgery is dated 12/08/12. Her administration assistant is Dr. Moses Dumont, last visit [...] was treated medically as if she was post-CA. Pt was started on both Aspirin and Lipitor. No longer on Plavix. She was on on Digoxin 250 mcg but this was DISCONTINUED in Dec 2012 due to sinus pauses noted at cardiac rehab and her Metoprolol was increased to 25 mg po TID, she is now on aspirin and Coumadin. Last note from cardiac surgery is dated 12/08/12. Her administration assistant is Dr. 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 Last note dated 10/03/2013. Follow up annually for mammo and office visit. - [facility] no longer accepting pt's insurance so now followed at [facility] q [address] [...] in 2005 - Previously followed by the [facility]. Last note dated 10/03/2013. Follow up annually for mammo and office visit. - [facility] no longer accepting pt's insurance so now followed at [facility] q [address] Pryor. -Last seen by oncology on 08/25/2019. 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 Last note dated 10/03/2013. Follow up annually for mammo and office visit. - [facility] no longer accepting pt's insurance so now followed at [facility] q [address] Pryor. -Last seen by oncology on 08/25/2019. -Recent Mammo 04/11/21 BI-RADS 2 benign Atrial fibrillation (CMS/HCC) 03/26/2013 Overview (01/05/2025): - continue [facility] anticoagulation INR goal 2.5-3.5 due to heart valve repair -Previously followed at [facility] with Dr. John Dumont DO. Note from 08/24/24 reviewed. -note from Followed by Dr. Brody Barros of [facility]. Note from 01/05/25 reviewed, echo ordered Assessment & Plan (11/20/2024 12:16 PM EDT): Assessment & Plan (03/05/2022 12:04 PM EST): - continue [facility] anticoagulation INR goal 2.5-3.5 due to heart [...] daily, prescribed by nephrology *Last seen in [facility] clinic 12/27/24; SMBG a few times/week and post prandial only. [facility] for fasting [...] 80mg daily -ordered lipid panel 11/03/23 -offered [place]-3s, bu wants to trial lifestyle changes. Will [...] - amlodipine 5mg once daily added by CD[facility] 08/10/23 -Continue lifestyle modifications -Continue current medications -telmisartan 80mg once daily restarted by cardiology team 07/2024 *Patient was last seen in [facility] clinic 12/27/24; ongoing concern of medication nonadherence [...] diabetes mellitus 07/30/2019 11/04/2022 Proteinuria 07/30/2019 05/01/2024 Stage 3a chronic kidney disease (CMS/HCC) 07/30/2019 01/05/2025 Overview (12/12/2024): -Followed by Dr. Blancas Lab Results Component Value Date CREATININE 1.15 08/07/2024 EGFR 47 08/07/2024 MICROALBCREU 299.7 (H) 08/07/2024 MICROALBCREU 316.8 (H) 10/20/2023 LDLCHOLCAL 41 08/30/2024 -Followed by Dr Blancas -Jorge hui 10mg -Continue telmisartan 80mg Assessment & Plan (11/20/2024 12:16 PM EDT): Assessment & Plan (05/05/2023 10:54 AM EST): Update for Diagnosis Load -Followed by Dr Blancas -Jorge hui 10mg -Continue telmisartan 80mg Assessment & Plan (11/04/2022 9:06 AM EDT): Update for Diagnosis Load -Followed by Dr Blancas -Continue jardiance 10mg -Continue telmisartan 80mg Aortic valve disorder 08/12/20112024 Chronic kidney disease 07/20/201105/01 Overview (03/05/2022): -allergic to haile inhibitors (cough) -followed by Dr. Blancas Assessment & Plan (03/05/2022 12:05 PM EST): -allergic to haile inhibitors (cough) -followed by Dr. Blancas -avoid nephrotoxic agents Encounters Date Type Department Care Team Description 01/12/2025 Orders Only GENERIC EXTERNAL DATA DEPARTMENT Provider, Generic External Data 12/27/2024 Travel 12/22/2024 Orders Only GENERIC EXTERNAL DATA DEPARTMENT Provider, Generic External Data 12/01/2024 Orders Only GENERIC EXTERNAL DATA DEPARTMENT Provider, Generic External Data 11/30/[address] [address] Nelda Banks RN Paperwork/Forms 11/23/[address] [address] Dominique Alcaraz MD Osteopenia of multiple sites 11/20/2024 11:15 AM EDT Office Visit [address] [address] Dominique Alcaraz MD Hypertension, unspecified type (Primary Dx); Hyperlipidemia, unspecified hyperlipidemia type; History of aortic valve repair; Paroxysmal atrial fibrillation (CMS/[facility]); Type 2 diabetes mellitus with chronic kidney disease, without long-term current use of insulin, unspecified CKD stage (CMS/HCC); Stage 3a chronic kidney disease (CMS/HCC); Atypical ductal hyperplasia of breast; Other specified health status; Encounter for immunization 11/20/2024 Travel 11/17/2024 Telephone [facility] [address] [place] [address] Ginna Jaimes [place] 11/10/2024 Orders Only GENERIC EXTERNAL DATA DEPARTMENT Provider, Generic External Data 10/20/2024 Orders Only GENERIC EXTERNAL DATA DEPARTMENT Provider, Generic External Data 10/17/2024 Telephone [facility] [address] [place] [address] Dominique Alcaraz MD Chart Prep from Last [...] antigen) 11/17/2011 [facility] SARS-CoV-2 Vaccination 05/15/2020 Novel [id number] 11/19/2015 Pfizer Covid-19 Vaccine 12+ 01/31/2021 Pfizer [...] Description 04/30/2025 11:00 AM EST Medication Management [facility] [address] [place] [address] Martina Wesley, PharmD [address] [place] [address] Health Maintenance Due Date Last Done Comments [...] 12:00 PM EDT) No Martina Tiwari, PharmD Procedures Procedure Name Priority Date/Time Associated Diagnosis Comments PROTHROMBIN TIME WHOLE BLD POC Routine 01/12/2025 1:32 PM EST ~PT, ~INR - ANTI COAG CLINIC Routine 01/12/2025 1:32 PM EST PROTHROMBIN TIME WHOLE BLD POC Routine 12/22/2024 [...] WHOLE BLD POC (01/12/2025 1:32 PM EST) Only the most recent of5 resultswithin the time period is included. Protime 28.1(H) 11.1 - 13.5 sec [facility] 01/12/2025 1:32 PM EST 01/12/2025 1:44 PM EST us Generic External Data Provider LAB BLOOD ORDERAB LES Final Result Performing Organization Address City/[facility]/ZIP Co de Phone Number [facility] [address] [place] [address] [phone] * (ABNORMAL) ~PT, ~INR - ANTI COAG CLINIC (01/12/2025 1:32 PM EST) Only the most recent of5 resultswithin the time period is included. Prothrombin Time INR 2.3(H) 0.9 - 1.1 [facility] Comment:METER #: [id number] TERNATIONAL NORMALIZED RATIO (INR) REFERENCE RANGES Reference [...] ORDERAB LES Final Result Performing Organization Address City/[facility]/ZIP Co de Phone Number [facility] [address] [place] [address] [phone] * (ABNORMAL) POCT glycosylated hemoglobin (Hgb A1c) (11/20/2024 12:00 PM EDT) Pathologist [facility] Hemoglobin A1C 6.9(A) 4.0 - 5.7 % QC Media Lot # [id number] Lot# Expiration Date ,[id number] Blood Capillary blood specimen / Unknown 11/20/2024 12:00 PM EDT Dominique Alcaraz MD POINT OF CARE TEST ENTER/E DIT ORDERABLES Final Result * POCT glucose manually resulted (11/20/2024 11:59 AM EDT) Pathologist [facility] Glucose Blood, POC 108 60 - 200 mg/dL QC Media Lot # [id number] Lot# Expiration Date [id number] Blood Capillary blood specimen / Unknown 11/20/2024 11:59 AM EDT Dominique Alcaraz MD POINT OF CARE TEST ENTER/E DIT ORDERABLES Final Result * (ABNORMAL) Lipid Panel, Standard (08/30/2024 8:13 AM EDT) Triglycerides 270(H) <150 mg/dL [facility] Comment:Desirable Triglyceri de: less than 150 mg/dLBorderline High Triglyceride 150-199 mg/dLHigh Triglyceride: 200-499 mg/dLVery High Triglyceride: greater than or equal to 5OO mg/dL Cholesterol 128 <200 mg/dL [facility] Comment:Desirable Cholestero l: less than 200 mg/dLBorderline High Cholesterol: 200-239 mg/dLHigh Cholesterol: greater than 239 mg/dL LDL Cholesterol Calculated 41 <100 mg/dL [facility] Comment:Desirable LDL: less than 100 mg/dLNear Optimal/Above Optimal LDL: 110- 129 mg/dLBorderline High LDL: 130-159 mg/dLHigh LDL: 160-189 mg/dLVery High LDL: greater than or equal to 190 mg/dL HDL Cholesterol 33(L) >40 mg/dL [facility] Comment:Desirable HDL: great er than 40 mg/dL Note: This HDL assay may give artificially low results in patients with liver disease. Blood Venous blood specimen / Unknown 08/30/2024 8:13 AM EDT 08/30/2024 11:51 AM EDT Dominique Alcaraz MD LAB BLOOD ORDERABLES Final Result Performing Organization Address City/[facility] Co de Phone Number [facility] [address] [place] [phone] * Hepatitis C Antibody with Reflex to HCV, RNA, Quantitative, Real-Time PCR (08/07/2024 8:03 AM EDT) Hepatitis C Antibody Nonreactive Nonreactive [facility] Comment:Antibodies to HCV no t detected; does not exclude early acuteHCV infection. Blood Venous blood specimen / Unknown 08/07/2024 8:03 AM EDT 08/07/2024 11:11 AM EDT Dominique Alcaraz MD LAB BLOOD ORDERABLES Final Result Performing Organization Address [facility] Co de Phone Number [facility] [address] [place] [phone] * Mammography (05/04/2024 11:40 AM EST) Mammogram BIRADS 2 Normal, Abnormal, BIRADS 1 , BIRADS 2 Comment:follow up one year Anatomical Region Laterality Modality Other Historical Provider HEALTH MAINTENANCE Final Result * Diabetes Eye Exam (06/18/2022) Eye Exam Normal Normal Result [facility] Historical Provider HEALTH MAINTENANCE Final Result * Colonoscopy (09/03/2018 12:11 PM EDT) Historical [facility] HEALTH MAINTENANCE Final Result from Last 3 Months or Most Recently Relevant to Health Maintenance Insurance [facility] [employer] (O D-SNP) [facility] Advance Directives Documents on File Type Date Recorded Patient Firmware Manager Expl anation Advance Directives and Living Will 11/04/2023 11:37 AM Health Care Proxy Care Teams Beauty Artist Relationship Specialty Start Date End Date Dominique Alcaraz MD [address] [place] [address] PCP - General Family Medicine 12/20/12 Martina Wesley, BetsyD [address] [place] [address] Pharmacist Internal Medicine 03/12/22 [place] [address] [place] [phone] Nephrology 05/01/24 Chun Álvarez MD [address] [place] [address] Hematology and Oncology 05/01/24 Brody Barros MD [address] [place] [address] Cardiology 01/05/25
--- OUTSIDE RECORDS SUMMARY | 2025-01-12 19:03 | XMS_ITS | Encounter Summary ---
Author Organization [employer] Address [address] [place] [address] Care Team Providers Care Lead Blender Name Role Phone Dominique Alcaraz MD Primary Care Provider [phone] Martina Wesley PharmD Unavailable Refugio Huston MD Unavailable [phone] Chun Álvarez MD Unavailable [phone] Moses Dumont MD Unavailable Brody Barros MD Unavailable [phone] Encounter Details Date Type Department Care Team (Late st Contact Info) Description 05/01/2024 Orders Only [facility] [address] [place], [place] [phone] Dominique Alcaraz MD [address] [place], [place] [phone] Type 2 diabetes mellitus with chronic kidney [...] Description 04/30/2025 11:00 AM EST Medication Management [facility] [address] [place] [address] Martina Wesley PharmD [address] [place] [address] documented as of this encounter Goals Goal [...] EST) Protime 27.7(H) 11.1 - 13.5 sec [facility] 05/01/2024 1:32 PM EST 05/01/2024 1:34 PM EST us Generic External Data Provider LAB BLOOD ORDERAB LES Final Result Performing Organization Address [facility] Co de Phone Number [facility] [address] [place] [phone] * (ABNORMAL) ~PT, ~INR - ANTI COAG CLINIC (05/01/2024 1:32 PM EST) Prothrombin Time INR 2.3(H) 0.9 - 1.1 [facility] Comment:METER #: [id number] TERNATIONAL NORMALIZED RATIO (INR) REFERENCE RANGES Reference [...] ORDERAB LES Final Result Performing Organization Address City/[facility] Co de Phone Number [facility] [address] [place] [address] [phone] documented in this encounter Visit Diagnoses [...] documented as of this encounter Care Teams Lead Blender Relationship Specialty Start Date End Date Dominique Alcaraz MD [address] [place] [address] PCP - General Family Medicine 12/20/12 Martina Wesley, BetsyD [address] [place] [address] Pharmacist Internal Medicine 03/12/22 [place] [address] [place] [phone] Nephrology 05/01/24 Chun Álvraez MD [address] [place] [address] Hematology and Oncology 05/01/24 Moses Dumont MD [address] [place] [address] Cardiology 05/01/24 01/04/25 Brody Barros MD [address] [place] [address] Cardiology 01/05/25 documented as of this encounter
--- OUTSIDE RECORDS SUMMARY | 2025-01-12 19:03 | XMS_ITS | Encounter Summary ---
Author Organization [employer] Address [address] [place] [address] Care Team Providers Care General Technician Name Role Phone Dominique Alcaraz MD Primary Care Provider [phone] Martina Wesley PharmD Unavailable Refugio Huston MD Unavailable [phone] Chun Álvarez MD Unavailable [phone] Moses Dumont MD Unavailable [phone] Brody Barros MD Unavailable Reason for Visit * Reason Comments Med Refill Encounter Details Date Type Department Care Team (Late st Contact Info) Description 08/18/2024 Refill [facility] [address] [place], [place] [phone] Martina Wesley, PharmD [address] [place], [place] [phone] Primary hypertension Social History Tobacco Use Types [...] the past 12 months, has t he [employer], gas, oil or water company threatened to [...] Description 04/30/2025 11:00 AM EST Medication Management [facility] [address] [place] [address] Martina Wesley PharmD [address] [place] [address] documented as of this encounter Goals Goal Patient Goal Type Associated Problems Recent Progress Patient-Stated? Author Blood Pressure < 140/90 Blood Pressure 130/66(2024 10:35 AM EDT) No Jamaris-Maria Isabel Jaffesa, PharmD Hemoglobin A1c < 7 Result Component 6.9( 12:00 PM EDT) No JamarisMartina Levine, PharmD documented as of this encounter Visit Diagnoses Diagnosis Primary hypertension Unspecified essential hypertension documented in this encounter Additional Health Concerns Assessment Noted Time PHQ-9 Depression Total Score: 8 11/03/19 24 9:00 AM EDT documented as of this encounter Care Teams General Technician Relationship Specialty Start Date End Date Dominique Alcaraz MD [address] [place] [address] PCP - General Family Medicine 12/20/12 Martina Wesley, BetsyD [address] [place] [address] Pharmacist Internal Medicine 03/12/22 Refugio Huston MD [address] [place] [phone] Nephrology 05/01/24 Chun Álvarez MD [address] [place] [address] Hematology and Oncology 05/01/24 Moses Dumont MD [address] [place] [address] Cardiology 05/01/24 01/04/25 Brody Barros MD [address] [place] [address] Cardiology 01/05/25 documented as of this encounter
--- OUTSIDE RECORDS SUMMARY | 2025-01-12 19:03 | XMS_ITS | Encounter Summary ---
Author Organization [employer] Address [address] [place] [address] Care Team Providers Care Event Attendant Name Role Phone Dominique Alcaraz MD Primary Care Provider [phone] Martina Wesley PharmD Unavailable [phone] Refugio Huston MD Unavailable [phone] Chun Álvarez MD Unavailable [phone] Moses Dumont MD Unavailable [phone] Brody Barros MD Unavailable [phone] Reason for Visit * Reason Comments Med Refill Encounter Details Date Type Department Care Team (Late st Contact Info) Description 08/14/2024 Refill [facility] [address] [place], [place] [phone] Martina Wesley, PharmD [address] [place], [place] [phone] Primary hypertension Social History Tobacco Use Types [...] the past 12 months, has t he [employer], gas, oil or water company threatened to [...] Description 04/30/2025 11:00 AM EST Medication Management [facility] [address] [place] [address] Martina Wseley PharmD [address] [place] [address] documented as of this encounter Goals Goal Patient Goal Type Associated Problems Recent Progress Patient-Stated? Author Blood Pressure < 140/90 Blood Pressure 130/66(2024 10:35 AM EDT) No Martina Tiwari PharmKourtney Hemoglobin A1c < 7 Result Component 6.9( 12:00 PM EDT) No Martina Tiwari PharmD documented as of this encounter Visit Diagnoses Diagnosis Primary hypertension Unspecified essential hypertension documented in this encounter Additional Health Concerns Assessment Noted Time PHQ-9 Depression Total Score: 8 11/03/19 24 9:00 AM EDT documented as of this encounter Care Teams Event Attendant Relationship Specialty Start Date End Date Dominique Alcaraz MD [address] [place] [address] PCP - General Family Medicine 12/20/12 Martina Wesley PharmD [address] [place] [address] Pharmacist Internal Medicine 03/12/22 Refugio Huston MD [address] [place] [phone] Nephrology 05/01/24 Chun Álvarez MD [address] [place] [address] Hematology and Oncology 05/01/24 Moses Dumont MD [address] [place] [address] Cardiology 05/01/24 01/04/25 Brody Barros MD [address] [place] [address] Cardiology 01/05/25 documented as of this encounter
== END 2025-01-12 13:43 | disposition home or self-care (01) ==
LOC: HO.ACS 13:00
PROVIDERS: PCP Family Medicine; Visit Provider Internal Medicine Medical Oncology
DX: Z79.01 Long term (current) use of anticoagulants (principal)

== ENCOUNTER → 2025-01-12 13:00 | Outpatient (BNVA) | payer OTHER, SELFPAY | PROVIDERS: PCP Family Medicine; Visit Provider Internal Medicine Medical Oncology | DX: Z95.2 Presence of prosthetic heart valve (principal); Z51.81 Encounter for therapeutic drug level monitoring; Z79.01 Long term (current) use of anticoagulants | CPT/HCPCS: 85610; 99211 ==

== ENCOUNTER 2025-02-02 13:06 | Outpatient (AMB) | payer OTHER, SELFPAY ==
--- NOTE | 2025-02-02 13:12 | MHC.OFFVISCO ---
Intake Intake Visit Reasons: Anticoagulation Allergies lisinopril (LISINOPRIL) Allergy (Intermediate, Verified 02/02/25 13:07) rash/cough, palpitations Medication List - Last Reconciled 02/02/25 by Kianna Aviles RN amlodipine 5 mg PO DAILY aspirin 81 mg PO DAILY atorvastatin 80 mg PO BEDTIME blood sugar diagnostic (FreeStyle Lite Strips) As directed blood-glucose meter (FreeStyle [place] Lite kit) As directed calcium carbonate (Calcium Antacid) 200 mg PO DAILY cholecalciferol (vitamin D3) (Vitamin D3) 25 mcg PO DAILY cyanocobalamin (vitamin B-12) (Vitamin B-12) 500 mcg PO DAILY empagliflozin (Jardiance) 25 mg PO DAILY ferrous sulfate 325 mg PO DAILY lancets (TRUEplus Lancets) As directed metformin ER 500 mg PO QPM metoprolol tartrate 1 tab PO BID telmisartan (Micardis) 80 mg PO DAILY warfarin 5 mg See Protocol PO DIRECTED warfarin 2.5 mg See Protocol PO DIRECTED Nursing Note INR: 2.7 in therapeutic range Medications and supplements reviewed No changes in health, diet, medications, or supplements, Denies any signs and symptoms of bleeding or bruising or clotting. Bleeding, bruising, clotting discussed Nutritional guidance given Dose: same 5mg x 2days/ 2.5mg x 5 days F/U INR: 1 month Patient verbalizes understanding of instructions given Anti-Coag Initial Assessment Social Hx Patient Tobacco Use Status: Never used Tobacco alcohol intake: former Alcohol intake frequency: does not drink Questionnaires HAS-BLED Does the patient had uncontrolled Hypertension?: No Does the patient have renal disease?: No Does the patient have liver disease?: No Does the patient have a history of stroke?: No Has the patient had major bleeding or predisposition to bleeding?: No Does the patient have labile INRs?: No Is the patient over 65 years of age?: Yes Is the patient on medications that gives them a predisposition to bleeding?: Yes Does the patient use alcohol?: No HAS-BLED Score: 2 CHADSVASC Age: 66-74 Gender: Female Does the patient have a history of CHF?: No Does the patient have a history of Hypertension?: Yes Does the patient have a history of Stroke/TIA/Thromboembolism?: No Does the patient have a history of Vascular Disease (prior MD, PAD or aortic plaque)?: Yes Does the patient have a history of Diabetes?: Yes CHADS VACS Score: 5 Obdulia Prediction Score Rsk VTE Active Cancer: No Previous VTE, excluding superficial vein thrombosis: No Reduced mobility: No Already known Thrombophilic Condition: No With-in last month Trauma and/or Surgery: No Elderly 70 year or older: No Heart and/or Respiratory Failure: No Acute Myocardial infarction and/or Ischemic Stroke: No Acute Infection and/or Rheumatologic Disorder: No Obesity (BMI 30 or greater): No Ongoing Hormonal Treatment: No Score: 0 Obdulia Score less than 4; Low Risk of VTE Obdulia Score 4 or greater; High Risk of VTE Coding Level of Care Code Est Patient Level 1 Diagnoses Current use of anticoagulant therapy Z79.01 Results AMB INR Fingerstick AMB INR Fingerstick 2.7 Last Edit by Kianna Aviles RN on 02/02/25 13:11 Assessment & Plan Assessment & Plan (1) Current use of anticoagulant therapy: Code(s): Z79.01 - prison (current) 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
[2025-02-02 13:18] LABS: Prothrombin Time Whole Bld POC 32.6 sec (11.1-13.5); ~PT, ~INR - Anti Coag Clinic 2.7 (0.9-1.1)
== END 2025-02-02 13:17 | disposition home or self-care (01) ==
LOC: HO.ACS 13:06
PROVIDERS: PCP Family Medicine; Visit Provider Internal Medicine Medical Oncology
DX: Z79.01 Long term (current) use of anticoagulants (principal)

== ENCOUNTER → 2025-02-02 13:06 | Outpatient (BNVA) | payer OTHER, SELFPAY | PROVIDERS: PCP Family Medicine; Visit Provider Internal Medicine Medical Oncology | DX: Z95.2 Presence of prosthetic heart valve (principal); Z51.81 Encounter for therapeutic drug level monitoring; Z79.01 Long term (current) use of anticoagulants | CPT/HCPCS: 85610; 99211 ==

== ENCOUNTER 2025-02-09 13:34 | Outpatient (AMB) | payer OTHER, SELFPAY ==
--- NOTE | 2025-02-09 14:11 | HO.NEPHOV_ITS ---
Vital Signs 02/09/25 14:19 Height 5 ft Weight 270 lb 4 oz BMI 52.8 BP 120/70 Blood Pressure Location Rt brachial Position Sitting Pulse 86 Pulse Source Pulse Oximeter Pulse Oximetry (%) 95 Oxygen Delivery Method Room Air Intake Visit Reasons: Chronic kidney disease Real Estate Acquisition Analyst Required: Yes Real Estate Acquisition Analyst Language: Wardrobe Specialist Services: Real Estate Acquisition Analyst Present Real Estate Acquisition Analyst Name: Matthew [id number] Information Interpreted: clinical only Accompanied by: Self / Same As Patient Allergies lisinopril (LISINOPRIL) Allergy (Intermediate, Verified 02/09/25 14:19) rash/cough, palpitations HPI Comments Details: I had the pleasure of seeing Dyan in consultation for CKD and proteinuria. She is a diabetic and hypertensive. She is on Jardiance as well as Telmisartan. She has H/O mechanical heart valve. She denies nausea, vomiting, diarrhea, epistaxis, photosensitvity, edema, hematuria, dizziness, deafness. She has no H/O para proteinemia. She does not take NSAID's and try to remain adequately hydrated [facility] Medical History (Updated 02/09/25 @ 14:14 by Parker England MD) Paroxysmal atrial fibrillation Hepatitis C Depression Pelvic pressure in female Osteopenia Back pain Stage 3 chronic kidney disease Proteinuria Phyllodes tumor On anticoagulant therapy Hyperlipidemia Atrial fibrillation Aortic valve disorder Chronic kidney disease Hip pain Diabetes Atypical hyperplasia of left breast High cholesterol HTN (hypertension) Surgical History S/P ascending aortic aneurysm repair History of aortic arch repair Status post mechanical aortic valve replacement Hx of aortic valve repair Hx of cholecystectomy Hx of breast lump removal Hx of artificial heart valve replacement Family History Mother Diabetes Father HTN (hypertension) Social History Household Members: Spouse Housing: House Are you a primary child care lead teacher to a significant other at home: No Do you presently have visiting nurse or other home services: Yes Alcohol intake: former Patient Tobacco Use Status: Never used Tobacco service: No Current occupational status: unemployed Review of Systems Const All systems reviewed & are unremarkable except as noted in HPI and below Physical Exam Vital Signs: Last Vital Signs Pulse 86 02/09/25 14:19 BP 120/70 02/09/25 14:19 Pulse Ox 95 02/09/25 14:19 Oxygen Delivery Method Room Air 02/09/25 14:19 BMI result Body Mass Index 52.8 Const General: comfortable and no acute distress Orientation/consciousness: patient oriented x3 HEENT Head: Yes normocephalic Mouth: Normal oral and palatal mucosa present Eyes EOM: EOMs intact bilaterally Neck Neck: Yes supple Resp Auscultation: clear to auscultation bilaterally Cardio Jugular venous distension: no JVD Rate: regular rate Heart sounds: Murmur heart sound present GI Palpation (GI): Soft to palpation Auscultation: normal bowel sounds General: Yes no CVA tenderness Back/Spine/Pelvis Back: no CVA tenderness Skin General skin exam: no rashes or lesions noted Neuro General: patient oriented x3 and moves all extremities Extrem General: Yes no pedal edema Assessment & Plan Assessment & Plan (1) CKD stage 3a, GFR 45-59 ml/min: Code(s): N18.31 - Chronic kidney disease, stage 3a Category: Medical (2) HTN (hypertension): Code(s): I10 - Essential (primary) hypertension Category: Medical Qualifiers: Hypertension type: primary hypertension Qualified Code(s): I10 - Essential (primary) hypertension Plan Has proteinuric CKD 3 likely from DM Renal functions stable; UO good On ACEI/SGLT2i. BP at goal Minimize NSAID's; Imaging/Labs ordered No indication for renal biopsy now All possibilities discussed All questions answered; F/U given Orders: Orders Protein Creatinine Ratio, Ur 3 Weeks I10 - Essential (primary) hypertension, N18.31 - Chronic kidney disease, stage 3a Calcium 3 Weeks I10 - Essential (primary) hypertension, N18.31 - Chronic kidney disease, stage 3a Blood Urea Nitrogen 3 Weeks I10 - Essential (primary) hypertension, N18.31 - Chronic kidney disease, stage 3a Creatinine 3 Weeks I10 - Essential (primary) hypertension, N18.31 - Chronic kidney disease, stage 3a Proteinase 3 PR3 Antibodies 3 Weeks I10 - Essential (primary) hypertension, N18.31 - Chronic kidney disease, stage 3a Complement C3 3 Weeks I10 - Essential (primary) hypertension, N18.31 - Chronic kidney disease, stage 3a Complement C4 3 Weeks I10 - Essential (primary) hypertension, N18.31 - Chronic kidney disease, stage 3a Immunofixation Pnl, Serum 3 Weeks I10 - Essential (primary) hypertension, N18.31 - Chronic kidney disease, stage 3a Phospholipase A2 Receptor Pnl 3 Weeks I10 - Essential (primary) hypertension, N18.31 - Chronic kidney disease, stage 3a Vitamin D 25-OH Total 3 Weeks I10 - Essential (primary) hypertension, N18.31 - Chronic kidney disease, stage 3a Parathyroid Hormone Intact 3 Weeks I10 - Essential (primary) hypertension, N18.31 - Chronic kidney disease, stage 3a UA and rflx microscopic 3 Weeks I10 - Essential (primary) hypertension, N18.31 - Chronic kidney disease, stage 3a Immunofixation, Random Urine 3 Weeks I10 - Essential (primary) hypertension, N18.31 - Chronic kidney disease, stage 3a Electrolytes 3 Weeks I10 - Essential (primary) hypertension, N18.31 - Chronic kidney disease, stage 3a Phosphorus 3 Weeks I10 - Essential (primary) hypertension, N18.31 - Chronic kidney disease, stage 3a Anti DNA DS Antibody 3 Weeks I10 - Essential (primary) hypertension, N18.31 - Chronic kidney disease, stage 3a Myeloperoxidase Antibody 3 Weeks I10 - Essential (primary) hypertension, N18.31 - Chronic kidney disease, stage 3a Complete Blood Count Auto Diff 3 Weeks I10 - Essential (primary) hypertension, N18.31 - Chronic kidney disease, stage 3a US renal BI 2 Weeks I10 - Essential (primary) hypertension, N18.31 - Chronic kidney disease, stage 3a Coding Level of Care Code New Pt Level 4 (84187) Diagnoses CKD stage 3a, GFR 45-59 ml/min N18.31 Primary hypertension I10 Hypertension type: primary hypertension
[2025-02-09 14:19] VITALS: BP 120/70; PULSE 86; O2SAT 95; BMI 52.8
--- OUTSIDE RECORDS SUMMARY | 2025-02-09 19:00 | XMS_ITS | Encounter Summary ---
Author Organization [employer] Address [address] [place] [address] Care Team Providers Care Customs Compliance Manager Name Role Phone Dominique Alcaraz MD Primary Care Provider Martina Wesley PharmD Unavailable Refugio Huston MD Unavailable [phone] Chun Álvarez MD Unavailable [phone] Moses Dumont MD Unavailable [phone] Brody Barros MD Unavailable Reason for Visit * Reason Comments Med Refill Encounter Details Date Type Department Care Team (Late st Contact Info) Description 05/07/2023 Refill [facility] [address] [place], [place] [phone] Dominique Alcaraz MD [address] [place], [place] [phone] Type 2 diabetes mellitus without complication, 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 terminal operations manager insulin use ([facility]) Social History Tobacco Use Types [...] Description 04/30/2025 11:00 AM EST Medication Management [facility] [address] [place] [address] Martina Wesley PharmD [address] [place] [address] documented as of this encounter Goals Goal [...] without complication, 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 fdc insulin use documented in this encounter Additional Health Concerns Assessment Noted Time PHQ-9 Depression Total Score: 0 07/09/19 23 3:56 PM EDT documented as of this encounter Care Teams Customs Compliance Manager Relationship Specialty Start Date End Date Dominique Alcaraz MD [address] [place] [address] PCP - General Family Medicine 12/20/12 Martina Wesley PharmD [address] [place] [address] Pharmacist Internal Medicine 03/12/22 Refugio Huston MD [address] [place] [phone] Nephrology 05/01/24 Chun Álvarez MD [address] [place] [address] Hematology and Oncology 05/01/24 Moses Dumont MD [address] [place] [address] Cardiology 05/01/24 01/04/25 Brody Barros MD [address] [place] [address] Cardiology 01/05/25 documented as of this encounter
--- OUTSIDE RECORDS SUMMARY | 2025-02-09 19:00 | XMS_ITS | Encounter Summary ---
Author Organization [employer] Address [address] 7[address] [place] [address] Care Team Providers Care Roadmaster Name Role Phone Dominique Alcaraz MD Primary Care Provider [phone] Martina Wesley PharmD Unavailable Refugio Huston MD Unavailable [phone] Chun Álvarez MD Unavailable [phone] Moses Dumont MD Unavailable Brody Barros MD Unavailable Encounter Details Date Type Department Care Team (Late st Contact Info) Description 05/01/2024 Orders Only [facility] MED[facility]INE [address] [place], [place] [phone] Dominique Alcaraz MD [address] [place], [place] [phone] Type 2 diabetes mellitus with chronic kidney [...] Description 04/30/2025 11:00 AM EST Medication Management [facility]INE [address] [place] [address] Martina Wesley PharmD [address] [place] [address] documented as of this encounter Goals Goal [...] EST) Protime 27.7(H) 11.1 - 13.5 sec [facility] 05/01/2024 1:32 PM EST 05/01/2024 1:34 PM EST us Generic External Data Provider LAB BLOOD ORDERAB LES Final Result Performing Organization Address [facility] Co de Phone Number [facility] [address] [place] [phone] * (ABNORMAL) ~PT, ~INR - ANTI COAG CLINIC (05/01/2024 1:32 PM EST) Prothrombin Time INR 2.3(H) 0.9 - 1.1 [facility] Comment:METER #: [id number] TERNATIONAL NORMALIZED RATIO (INR) REFERENCE RANGES Reference [...] ORDERAB LES Final Result Performing Organization Address [facility] Co de Phone Number [facility] [address] [place] [address] [phone] documented in this encounter Visit Diagnoses [...] documented as of this encounter Care Teams Roadmaster Relationship Specialty Start Date End Date Dominique Alcaraz MD [address] [place] [address] PCP - General Family Medicine 12/20/12 Martina Wesley, BetsyD [address] [place] [address] Pharmacist Internal Medicine 03/12/22 [place] [address] [place] [phone] Nephrology 05/01/24 Chun Álvarez MD [address] [place] [address] Hematology and Oncology 05/01/24 Moses Dumont MD [address] [place] [address] Cardiology 05/01/24 01/04/25 Brody Barros MD [address] [place] [address] Cardiology 01/05/25 documented as of this encounter
--- OUTSIDE RECORDS SUMMARY | 2025-02-09 19:00 | XMS_ITS | Encounter Summary ---
Author Organization [employer] Address [address] [place] [address] Care Team Providers Care Paper And Pulp Mill Operator Name Role Phone Dominique Alcaraz MD Primary Care Provider [phone] Martina Wesley PharmD Unavailable Refugio Huston MD Unavailable [phone] Chun Álvarez MD Unavailable [phone] Moses Dumont MD Unavailable [phone] Brody Barros MD Unavailable Reason for Visit * Reason Comments Med Refill Encounter Details Date Type Department Care Team (Late st Contact Info) Description 08/18/2024 Refill [facility] [address] [place], [place] [phone] Martina Wesley, PharmD [address] [place], [place] [phone] Primary hypertension Social History Tobacco Use Types [...] the past 12 months, has t he [employer] gas, oil or water company threatened to [...] Description 04/30/2025 11:00 AM EST Medication Management [facility] [address] [place] [address] Martina Wesley PharmD [address] [place] [address] documented as of this encounter Goals Goal [...] documented as of this encounter Care Teams Paper And Pulp Mill Operator Relationship Specialty Start Date End Date Dominique Alcaarz MD [address] [place] [address] PCP - General Family Medicine 12/20/12 Martina Wesley, BetsyD [address] [place] [address] Pharmacist Internal Medicine 03/12/22 Refugio Huston MD [address] [place] [phone] Nephrology 05/01/24 Chun Álvarez MD [address] [place] [address] Hematology and Oncology 05/01/24 Moses Dumont MD [address] [place] [address] Cardiology 05/01/24 01/04/25 Brody Barros MD [address] [place] [address] Cardiology 01/05/25 documented as of this encounter
--- OUTSIDE RECORDS SUMMARY | 2025-02-09 19:00 | XMS_ITS | Encounter Summary ---
Author Organization [employer] Address [address] [place] [address] Care Team Providers Care Sap Director Name Role Phone Dominique Alcaraz MD Primary Care Provider + [phone] Martina Wesley PharmD Unavailable Refugio Huston MD Unavailable [phone] Chun Álvarez MD Unavailable [phone] Moses Dumont MD Unavailable [phone] Brody Barros MD Unavailable [phone] Reason for Visit * Reason Onset Date Comments Pre op 09/23/2023 Encounter Details Date Type Department Care Team (Late st Contact Info) Description 09/23/2023 Telephone [facility] MEDICINE [address] [place], [place] [phone] Dominique Alcaraz MD [address] [place], [place] [phone] Pre op Social History Tobacco Use Types [...] Surgeon's name: mercedes mohan Facility name: [address], [place] [address] Surgeon's office number: [phone] Surgeon's office fax number: [phone] Contact name (person you spoke with): [place] Last office note from surgeon requested: No * Telephone Encounter - Bharti Fregoso - 09/23/2023 12:23 PM EDT Date of Surgery: right eye 11/15/23 and left eye 11/28 Surgical procedure being done: cataract surgery both eyes Type of anesthesia: local anesthesia Lab needed: No EKG: No Surgeon's name: [facility] name: [address], [place] [address] Surgeon's office number: [phone] Surgeon's office fax number: [phone] Contact name (person you spoke with): [place] Last office note from surgeon requested: No documented in this encounter Plan of Treatment Upcoming Encounters Date Type Department Care Team (Late st Contact Info) Description 04/30/2025 11:00 AM EST Medication Management [facility]INE [address] [place] [address] JamarisMartina Larsen, PharmD [address] [place] [address] documented as of this encounter Goals Goal [...] documented as of this encounter Care Teams Sap Director Relationship Specialty Start Date End Date Dominique Alcaraz MD [address] [place], [place] PCP - General Family Medicine 12/20/12 Jamaris-Martina Still, PharmD [address] [place] [address] Pharmacist Internal Medicine 03/12/22 Refugio Huston MD [address] [place] [phone] Nephrology 05/01/24 Chun Álvarez MD [address] [place] [address] Hematology and Oncology 05/01/24 Moses Dumont MD [address] [place] [address] Cardiology 05/01/24 01/04/25 Brody Barros MD [address] [place] [address] Cardiology 01/05/25 documented as of this encounter
--- OUTSIDE RECORDS SUMMARY | 2025-02-09 19:00 | XMS_ITS | Encounter Summary ---
Author Organization [employer] Address [address] [facility] 7t [place] [address] Care Team Providers Care Wagon Winder Name Role Phone Dominique Alcaraz MD Primary Care Provider [phone] Martina Wesley PharmD Unavailable Refugio Huston MD Unavailable Chun Álvarez MD Unavailable [phone] Moses Dumont MD Unavailable Brody Barros MD Unavailable [phone] Encounter Details Date Type Department Care Team (Late st Contact Info) Description 10/30/2022 Abstract [facility] [address] [place] [address] Dominique Alcaraz MD [address] [place], [place] [phone] Social History Tobacco Use Types Packs/Day Years [...] Description 04/30/2025 11:00 AM EST Medication Management [facility] [address] [place] [address] Martina Wesley PharmD [address] [place] [address] documented as of this encounter Goals Goal [...] documented as of this encounter Care Teams Wagon Winder Relationship Specialty Start Date End Date Dominique Alcaraz MD [address] [place] [address] PCP - General Family Medicine 12/20/12 Martina Wesley PharmD [address] [place] [address] Pharmacist Internal Medicine 03/12/22 [place] [address] [place] [phone] Nephrology 05/01/24 Chun Álvarez MD [address] [place] [address] Hematology and Oncology 05/01/24 Moses Dumont MD [address] [place] [address] Cardiology 05/01/24 01/04/25 Brody Barros MD [address] [place] [address] Cardiology 01/05/25 documented as of this encounter
--- OUTSIDE RECORDS SUMMARY | 2025-02-09 19:00 | XMS_ITS | Clinical Summary ---
Author Organization [employer] Address [address] [place] [address] Care Team Providers Care Lab Specialist Name Role Phone Dominique Alcaraz MD Primary Care Provider + [phone] Martina Wesley PharmD Unavailable Refugio Huston MD Unavailable [phone] Chun Álvarez MD Unavailable [phone] Brody Barros MD Unavailable [phone] Allergies Active Allergy Reactions Criticality Noted Date Comments Lisinopril Palpitations,Shortne ss of breath High 05/22/2010 Other reaction(s): palpitations, SOB Medications aspirin 81 MG EC tablet Take 1 tablet by mouth in the morning. 3 Active Ferrous Sulfate (iron) 325 (65 Fe) MG tablet TAKE 1 TABLET BY MOUTH ONCE DAILY WITH BREAKFAST 3 Active glucose blood (FREESTYLE LITE) test stripIndications:T ype 2 diabetes mellitus with chronic kidney disease, without long-term current use of insulin, unspecified CKD stage (HCC) TEST BLOOD SUGAR TWICE DAILY 100 each 11 4 Active Jardiance 25 MGIndications:Type 2 diabetes mellitus with chronic kidney disease, without long-term current use of insulin, unspecified CKD stage (HCC) Take 25 mg by mouth Once per day. 4 Active Magnesium 500 MG capsule PT PURCHASING OTC Active telmisartan (MIcarDIS) 80 MG tabletIndications: Primary hypertension Take 1 tablet by mouth once daily 90 tablet 1 4 Active cholecalciferol (D3-1000) 25 MCG (1000 UT) capsuleIndications :Vitamin D deficiency TAKE 1 CAPSULE BY MOUTH EVERY DAY 30 capsule 11 01/30/2025 12:03 PM EST 5 Active metoprolol tartrate (Lopressor) 50 MG tabletIndications: Primary hypertension TAKE 1 TABLET BY MOUTH TWICE DAILY 60 tablet 11 01/30/2025 12:03 PM EST 5 Active TRUEplus Lancets 33G miscIndications:Ty pe 2 diabetes mellitus with chronic kidney disease, without long-term current use of insulin, unspecified CKD stage (HCC) TEST BLOOD SUGAR TWICE DAILY 100 each 11 5 Active amoxicillin (Amoxil) 500 MG capsule TAKE 4 CAPSULES BY MOUTH ONCE BEFORE SURGERY 4 capsule 2 5 Active fish oil-omega-3 fatty acids 1000 MG capsuleIndications :Hyperlipidemia, unspecified hyperlipidemia type Take 2 capsules (2 g) by mouth 2 times daily. 180 capsule 3 5 Active metFORMIN XR (Glucophage-XR) 500 MG 24 hr tabletIndications: Type 2 diabetes mellitus with chronic kidney disease, without long-term current use of insulin, unspecified CKD stage (HCC) TAKE 1 TABLET BY MOUTH EVERY DAY 90 tablet 5 Active atorvastatin (Lipitor) 80 MG tabletIndications: Hyperlipidemia, unspecified hyperlipidemia type TAKE 1 TABLET BY MOUTH ONCE DAILY 90 tablet 3 5 Active warfarin (Coumadin) 2.5 MG tabletIndications: History of aortic valve repair TAKE DIRECTED BY COUMADIN CLINIC 60 tablet 3 5 Active warfarin (Coumadin) 5 MG tabletIndications: History of aortic valve repair,Paroxysmal atrial fibrillation (CMS/HCC) (HCC) TAKE DIRECTED BY COUMADIN CLINIC 30 tablet 3 5 Active amLODIPine (Norvasc) 5 MG tabletIndications: Hypertension, unspecified type Take 1 tablet (5 mg) by mouth Once per day. 90 tablet 3 5 Active Calcium Antacid 500 MG chewable tabletIndications: Osteopenia of multiple sites CHEW 1 TABLET BY MOUTH TWICE DAILY 60 tablet 11 01/30/2025 12:03 PM EST 5 Active Active Problems Patient Care Coordination No te Formatting of this note migh t be different from the original. Enrolled in [facility] DM and [facility] HTN clinic with Martina Wesley, BetsyD, [facility] [employer] Bpm Developer: Jaci Shade Cutter Agency: [employer] [facility] Problem Noted Date Diagnosed Date Stage 3b chronic kidney disease (CMS/HCC) 2024 Overview (12/20/2024): Lab Results Component Value Date CREATININE 1.15 08/07/2024 CREATININE 0.85 07/30/2023 CREATININE 0.86 06/05/2022 EGFR 47 08/07/2024 EGFR >60 07/30/2023 EGFR >60 06/05/2022 MICROALBCREU 299.7 (H) 08/07/2024 MICROALBCREU 316.8 (H) 10/20/2023 -avoid nephrotoxic agnets -followed by inspector and unloader Dr. Huston Cardiac risk counseling 12/08/2023 Overview [...] Cano last done 06/18/2022 -dental home is [facility] -Health care proxy 11/03/23 Assessment & Plan (11/20/2024 12:16 PM EDT): Assessment & Plan (11/03/2023 9:32 AM EDT): -next physical exam due after 11/05/2023 -eye care facilitated by Dr. Cano last done 06/18/2022 -dental home is [facility] -Health care proxy 11/03/23 Assessment & [...] 08/05/2022 Overview (11/03/2023): For cataract surgery at [facility] with Dr. Gusman. Pt with mechanical [...] surgery on 11/15/23. After this appointment the lacquer dipping machine operator will be able to determine what medications should or can be held. Assessment & Plan (11/03/2023 9:26 AM EDT): For cataract surgery at [facility] with Dr. Gusman. Pt with mechanical [...] aortic valve with a [address] [employer] mechanical prosthesis by Dr. Jacob Pappas on 09/2017. She will be seen in 09/2018. Hx diagnostic cath found to have an occlusion of her OMB a clot was identified and was removed by balloon angioplasty . No stents were inserted, given the presence of this occlusion pt was treated medically as if she was post-WI. Pt was started on both Aspirin and Lipitor. No longer on Plavix. She was on on Digoxin 250 mcg but this was DISCONTINUED in Dec 2012 due to sinus pauses noted at cardiac rehab and her Metoprolol was increased to 25 mg po TID, she is now on aspirin and Coumadin. Last note from cardiac surgery is dated 12/08/12. Her lacquer dipping machine operator is Dr. Moses uDmont, note from 07/2024 reviewed -PT NEEDS ANTIBIOTIC PROPHLAXIS PRIOR TO DENTAL WORK - RX AMOXICILLIN 2G PRIOR TO DENTAL WORK -Seen by Dr. Dumont 07/2024 recommending follow up 1 year -note from Patient followed at [facility] with Dr. John Dumont DO. [...] was treated medically as if she was post-WI. Pt was started on both Aspirin and Lipitor. No longer on Plavix. She was on on Digoxin 250 mcg but this was DISCONTINUED in Dec 2012 due to sinus pauses noted at cardiac rehab and her Metoprolol was increased to 25 mg po TID, she is now on aspirin and Coumadin. Last note from cardiac surgery is dated 12/08/12. Her lacquer dipping machine operator is Dr. Moses Dumont, last visit 05/2018 [...] was treated medically as if she was post-WI. Pt was started on both Aspirin and Lipitor. No longer on Plavix. She was on on Digoxin 250 mcg but this was DISCONTINUED in Dec 2012 due to sinus pauses noted at cardiac rehab and her Metoprolol was increased to 25 mg po TID, she is now on aspirin and Coumadin. Last note from cardiac surgery is dated 12/08/12. Her lacquer dipping machine operator is Dr. 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 Last note dated 10/03/2013. Follow up annually for mammo and office visit. - [facility] no longer accepting pt's insurance so now followed [place] [facility] [place] [address] Pryor. -Last [...] in 2005 - Previously followed by the [facility]. Last note dated 10/03/2013. Follow up annually for mammo and office visit. - [facility] no longer accepting pt's insurance so now followed [place] [facility] [place] [address] Pryor. -Last seen by oncology on 08/25/2019. 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 Last note dated 10/03/2013. Follow up annually for mammo and office visit. - [facility] no longer accepting pt's insurance so now followed at [facility] [place] [address] Pryor. -Last seen by oncology on 08/25/2019. -Recent Mammo 04/11/21 BI-RADS 2 benign Atrial fibrillation (CMS/HCC) 03/26/2013 Overview (01/05/2025): - continue [facility] anticoagulation INR goal 2.5-3.5 due to heart valve repair -Previously followed at [facility] with Dr. John Dumont DO. Note from 08/24/24 reviewed. -note from Followed by Dr. Brody Barros of [facility]. Note from 01/05/25 reviewed, echo ordered Assessment & Plan (11/20/2024 12:16 PM EDT): Assessment & Plan (03/05/2022 12:04 PM EST): - continue [facility] anticoagulation INR goal 2.5-3.5 due to heart [...] daily, prescribed by nephrology *Last seen in [facility] clinic 12/27/24; SMBG a few times/week and post prandial only. [facility] encouraged patient to also SMBG for fasting [...] 80mg daily -ordered lipid panel 11/03/23 -offered Gary-3s, bu wants to trial lifestyle changes. Will [...] team 07/2024 *Patient was last seen in [facility] clinic 12/27/24; ongoing concern of medication nonadherence [...] Blancas -Jorge hui 10mg -Continue telmisartan 80mg Aortic valve disorder 08/12/20112024 Chronic kidney disease 07/20/201105/01 Overview (03/05/2022): -allergic to haile inhibitors (cough) -followed by Dr. Blancas Assessment & Plan (03/05/2022 12:05 PM EST): -allergic to haile inhibitors (cough) -followed by Dr. Blancas -avoid nephrotoxic agents Encounters Date Type Department Care Team Description 02/02/2025 Orders Only GENERIC EXTERNAL DATA DEPARTMENT Provider, Generic External Data 01/12/2025 Orders Only GENERIC EXTERNAL DATA DEPARTMENT Provider, Generic External Data 12/27/2024 Travel 12/22/2024 Orders Only GENERIC EXTERNAL DATA DEPARTMENT Provider, Generic External Data 12/01/2024 Orders Only GENERIC EXTERNAL DATA DEPARTMENT Provider, Generic External Data 11/30/[address] [address] Nelda Banks RN Paperwork/Forms 11/23/2024 Refill [facility] [address] [place] [address] [phone] Dominique Alcaraz MD Osteopenia of multiple sites 11/20/2024 11:15 AM EDT Office Visit [address] [address] Dominique Alcaraz MD Hypertension, unspecified type (Primary Dx); Hyperlipidemia, unspecified hyperlipidemia type; History of aortic valve repair; Paroxysmal atrial fibrillation ([facility]); Type 2 diabetes mellitus with chronic kidney disease, without long-term current use of insulin, unspecified CKD stage (CMS/HCC); Stage 3a chronic kidney disease (CMS/HCC); Atypical ductal hyperplasia of breast; Other specified health status; Encounter for immunization 11/20/2024 Travel 11/17/2024 Telephone [facility] [address] [place] [address] Ginna Jaimes [place] 11/10/2024 Orders Only GENERIC [...] antigen) 11/17/2011 Sierra SARS-CoV-2 Vaccination 05/15/2020 Novel [id number] 11/19/2015 Pfizer Covid-19 Vaccine 12+ 01/31/2021 Pfizer [...] Description 04/30/2025 11:00 AM EST Medication Management [facility] [address] [place] [address] Martina Wesley, PharmD [address] [place] [address] Health Maintenance Due Date Last Done Comments [...] 140/90 Blood Pressure 130/66(2024 10:35 AM EDT) Martina Villagran PharmD Hemoglobin A1c < 7 Result Component 6.9( 12:00 PM EDT) No Martina Wesley PharmD Help patients manage their type 2 diabetes Care Plan Help patients manage their type 2 diabetes Geneva Mora Weekly blood pressure task Care Plan Weekly blood pressure task No Geneva Gerard Help patients manage their type 2 diabetes Care Plan Help patients manage their type 2 diabetes No Geneva Gerard Patient has chronic kidney disease Care Plan Patient has chronic kidney disease No Geneva Gerard Procedures Procedure Name Priority Date/Time Associated Diagnosis Comments PROTHROMBIN TIME WHOLE BLD POC Routine 02/02/2025 1:10 PM EST ~PT, ~INR - ANTI COAG CLINIC Routine 02/02/2025 1:10 PM EST PROTHROMBIN TIME WHOLE BLD POC Routine 01/12/2025 [...] COAG CLINIC Routine 11/10/2024 1:08 PM EDT LIPID PANEL, STANDARD Routine 08/30/2024 [...] * (ABNORMAL) PROTHROMBIN TIME WHOLE BLD POC (02/02/2025 1:10 PM EST) Only the most recent of5 resultswithin the time period is included. Protime 32.6(H) 11.1 - 13.5 sec [facility] 02/02/2025 1:10 PM EST 02/02/2025 1:18 PM EST us Generic External Data Provider LAB BLOOD ORDERAB LES Final Result [facility] [address] [place] [phone] * (ABNORMAL) ~PT, ~INR - ANTI COAG CLINIC (02/02/2025 1:10 PM EST) Only the most recent of5 resultswithin the time period is included. Prothrombin Time INR 2.7(H) 0.9 - 1.1 [facility] Comment:METER #: [id number] TERNATIONAL NORMALIZED RATIO (INR) REFERENCE RANGES Reference RangeFor patients not on anticoagulant therapy: 0.9 - 1.1INR ranges for oral anticoagulanttherapy:For prevention and treatment of venous thrombosis and pulmonary embolism: 2.0 - 3.0For acute myocardial infarction with aspirin therapy: 2.0 - 3.0For acute myocardial infarction without aspirin therapy: 3.0 - 4.0For patients with mechanical prosthetic heart valves: 2.5 - 3.5 02/02/2025 1:10 PM EST 02/02/2025 1:18 PM EST us Generic External Data Provider LAB BLOOD ORDERAB LES Final Result [facility] [address] [place] [address] [phone] * (ABNORMAL) POCT glycosylated hemoglobin (Hgb A1c) (11/20/2024 12:00 PM EDT) Hemoglobin A1C 6.9(A) 4.0 - 5.7 % QC Media Lot # [id number] Lot# Expiration Date , Blood Capillary blood specimen / Unknown 11/20/2024 12:00 PM EDT Dominique Alcaraz MD POINT OF CARE TEST ENTER/E DIT ORDERABLES Final Result * POCT glucose manually resulted (11/20/2024 11:59 AM EDT) Glucose Blood, POC 108 60 - 200 mg/dL QC Media Lot # [id number] Lot# Expiration Date [id number] Blood Capillary blood specimen / Unknown 11/20/2024 11:59 AM EDT Dominique Alcaraz MD POINT OF CARE TEST ENTER/E DIT ORDERABLES Final Result * (ABNORMAL) Lipid Panel, Standard (08/30/2024 8:13 AM EDT) Triglycerides 270(H) <150 mg/dL [facility] Comment:Desirable Triglyceri de: less than 150 mg/dLBorderline High Triglyceride 150-199 mg/dLHigh Triglyceride: 200-499 mg/dLVery High Triglyceride: greater than or equal to 5OO mg/dL Cholesterol 128 <200 mg/dL [facility] Comment:Desirable Cholestero l: less than 200 mg/dLBorderline High Cholesterol: 200-239 mg/dLHigh Cholesterol: greater than 239 mg/dL LDL Cholesterol Calculated 41 <100 mg/dL [facility] Comment:Desirable LDL: less than 100 mg/dLNear Optimal/Above Optimal LDL: 110- 129 mg/dLBorderline High LDL: 130-159 mg/dLHigh LDL: 160-189 mg/dLVery High LDL: greater than or equal to 190 mg/dL HDL Cholesterol 33(L) >40 mg/dL [facility] Comment:Desirable HDL: great er than 40 mg/dL Note: This HDL assay may give artificially low results in patients with liver disease. Blood Venous blood specimen / Unknown 08/30/2024 8:13 AM EDT 08/30/2024 11:51 AM EDT Dominique Alcaraz MD LAB BLOOD ORDERABLES Final Result Performing Organization Address [facility] Co de Phone Number [facility] [address] [place] [phone] * Hepatitis C Antibody with Reflex to HCV, RNA, Quantitative, Real-Time PCR (08/07/2024 8:03 AM EDT) Hepatitis C Antibody Nonreactive Nonreactive [facility] Comment:Antibodies to HCV no t detected; does not exclude early acuteHCV infection. Blood Venous blood specimen / Unknown 08/07/2024 8:03 AM EDT 08/07/2024 11:11 AM EDT Result [facility] Dominique Alcaraz MD LAB BLOOD ORDERABLES Final Result Performing Organization Address [facility] Co de Phone Number [facility] [address] [place] [phone] * Mammography (05/04/2024 11:40 AM EST) Mammogram BIRADS 2 Normal, Abnormal, BIRADS 1 , BIRADS 2 Comment:follow up one year Anatomical Region Laterality Modality Other Historical Provider HEALTH MAINTENANCE Final Result * Diabetes Eye Exam (06/18/2022) Eye Exam Normal Normal Historical Provider HEALTH MAINTENANCE Final Result * Colonoscopy (09/03/2018 12:11 PM EDT) us Historical Provider HEALTH MAINTENANCE Final Result from Last 3 Months or Most Recently Relevant to Health Maintenance Additional Health Concerns Active Problems Noted Date Diagnosed Date Help patients manage their type 2 diabetes 02/01 Weekly blood pressure task 02/01/2025 Help patients manage their type 2 diabetes 02/01 Patient has chronic kidney disease 02/01/2025 Insurance [facility] CARE HOME OPTIONS (O D-SNP) [facility]AL [facility] Advance Directives Documents on File Type Date Recorded 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
--- OUTSIDE RECORDS SUMMARY | 2025-02-09 19:00 | XMS_ITS | Encounter Summary ---
Author Organization [employer] Address [address] [place] [address] Care Team Providers Care Distilling Department Supervisor Name Role Phone Dominique Alcaraz MD Primary Care Provider + [phone] Martina Wesley PharmD Unavailable Refugio Huston MD Unavailable [phone] Chun Álvarez MD Unavailable [phone] Moses Dumont MD Unavailable [phone] Brody Barros MD Unavailable [phone] Reason for Visit * Reason Comments Med Refill Encounter Details Date Type Department Care Team (Late st Contact Info) Description 03/17/2023 Refill [facility] [address] [place], [place] [phone] Dominique Alcaraz MD [address] [place], [place] [phone] Vitamin D deficiency; Stage 2 chronic kidney [...] Description 04/30/2025 11:00 AM EST Medication Management [facility] [address] [place] [address] JamarisMartina Larsen, PharmD [address] [place] [address] documented as of this encounter Goals Goal [...] documented as of this encounter Care Teams Distilling Department Supervisor Relationship Specialty Start Date End Date Dominique Alcaraz MD [address] [place] [address] PCP - General Family Medicine 12/20/12 Martina Wesley, BetsyD [address] [place] [address] Pharmacist Internal Medicine 03/12/22 Refugio Huston MD [address] [place] [phone] Nephrology 05/01/24 Chun Álvarez MD [address] [place] [address] Hematology and Oncology 05/01/24 Moses Dumont MD [address] [place] [address] Cardiology 05/01/24 01/04/25 Brody Barros MD [address] [place] [address] Cardiology 01/05/25 documented as of this encounter
--- OUTSIDE RECORDS SUMMARY | 2025-02-09 19:00 | XMS_ITS | Encounter Summary ---
Author Organization [employer] Address [address] [place] [address] Care Team Providers Care Internal Medicine Hospitalist Name Role Phone Dominique Alcaraz MD Primary Care Provider [phone] Martina Wesley PharmD Unavailable Refugio Huston MD Unavailable [phone] Chun Álvarez MD Unavailable [phone] Moess Dumont MD Unavailable [phone] Brody Barros MD Unavailable Reason for Visit * Reason Comments Med Refill Encounter Details Date Type Department Care Team (Late st Contact Info) Description 08/14/2024 Refill [facility] [address] [place], [place] [phone] Martina Wesley, PharmD [address] [place], [place] [phone] Primary hypertension Social History Tobacco Use Types [...] the past 12 months, has t he [employer] or water company threatened to [...] Description 04/30/2025 11:00 AM EST Medication Management [facility] [address] [place] [address] Martina Wesley PharmD [address] [place] [address] documented as of this encounter Goals Goal [...] documented as of this encounter Care Teams Internal Medicine Hospitalist Relationship Specialty Start Date End Date Dominique Alcaraz MD [address] [place] [address] PCP - General Family Medicine 12/20/12 Martina Wesley PharmD [address] [place] [address] Pharmacist Internal Medicine 03/12/22 Refugio Huston MD [address] [place] [phone] Nephrology 05/01/24 Chun Álvarez MD [address] [place] [address] Hematology and Oncology 05/01/24 Moses Dumont MD [address] [place] [address] Cardiology 05/01/24 01/04/25 Brody Barros MD [address] [place] [address] Cardiology 01/05/25 documented as of this encounter
--- OUTSIDE RECORDS SUMMARY | 2025-02-09 19:00 | XMS_ITS | Encounter Summary ---
Author Organization [employer] Address [address] [place] [address] Care Team Providers Care Room Service Manager Name Role Phone Dominique Alcaraz MD Primary Care Provider + [phone] Martina Wesley PharmD Unavailable [phone] Refugio Huston MD Unavailable [phone] Chun Álvarez MD Unavailable [phone] Moses Dumont MD Unavailable [phone] Brody Barros MD Unavailable [phone] Encounter Details Date Type Department Care Team (Late st Contact Info) Description 05/04/2024 Abstract [facility] [address] [place] [address] Sunitha Singleton [place] Social History Tobacco Use [...] Medication Management [facility] [address] [place] [address] Martina Wesley PharmD [address] [place] [address] documented as of this encounter Goals Goal [...] documented as of this encounter Care Teams Room Service Manager Relationship Specialty Start Date End Date Dominique Alcaraz MD [address] [place] [address] PCP - General Family Medicine 12/20/12 Martina Wesley, BetsyD [address] [place] [address] Pharmacist Internal Medicine 03/12/22 Refugio Huston MD [address] [place] [address] Nephrology 05/01/24 Chun Álvarez MD [address] [place] [address] Hematology and Oncology 05/01/24 Moses Dumont MD [address] [place] [address] Cardiology 05/01/24 01/04/25 Brody Barros MD [address] [place] [address] Cardiology 01/05/25 documented as of this encounter
--- OUTSIDE RECORDS SUMMARY | 2025-02-09 19:00 | XMS_ITS | Encounter Summary ---
Author Organization [employer] Address [address] [facility] 7t [place] [address] Care Team Providers Care Field Human Resources Manager Name Role Phone Dominique Alcaraz MD Primary Care Provider + [phone] Martina Wesley PharmD Unavailable [phone] Refugio Huston MD Unavailable [phone] Chun Álvarez MD Unavailable [phone] Moses Dumont MD Unavailable [phone] Brody Barros MD Unavailable [phone] Encounter Details Date Type Department Care Team (Late st Contact Info) Description 12/08/2023 Orders Only [facility] [address] [place], [place] [id number] Provider, MD Christiano Social History Tobacco Use [...] 11:00 AM EST Medication Management [facility] [address] [place] [address] Martina Wesley PharmD [address] [place] [address] documented as of this encounter Goals Goal [...] documented as of this encounter Care Teams Field Human Resources Manager Relationship Specialty Start Date End Date Dominique Alcaraz MD [address] [place] [address] PCP - General Family Medicine 12/20/12 Martina Wesley, BetsyD [address] [place] [address] Pharmacist Internal Medicine 03/12/22 [place] [address] [place] [phone] Nephrology 05/01/24 Chun Álvarez MD [address] [place] [address] Hematology and Oncology 05/01/24 Moses Dumont MD [address] [place] [address] Cardiology 05/01/24 01/04/25 Brody Barros MD [address] [place] [address] Cardiology 01/05/25 documented as of this encounter
--- OUTSIDE RECORDS SUMMARY | 2025-02-09 19:00 | XMS_ITS | Patient Health Record ---
Author Organization [facility] Address [address] [place] [address] Care Team Providers Care Blanker Press Operator Name Role Phone Dominique Alcaraz MD Primary Care Provider Bogdan Henriquez Unavailable [phone] Allergies Allergen (clinical drug ingredient) Drug/Non Drug Allergy documented on EMR Reaction Allergy Type Onset Date Status lisinopril Lisinopril Unknown Drug Allergy Activ e Reason For Referral No Information Medications Medication SIG (Take, Route, Frequency, Duration) Notes Start Date End Date Status Atorvastatin Calcium 40 MG Tablet 1 tablet Orally Once a day; Duration: 30 day(s) Active Telmisartan 40 MG Tablet 1 tablet Orally Once a day; Duration: 30 day(s) Active Metoprolol Tartrate 50 MG Tablet 1 tablet with food Orally Twice a day; Duration: 30 day(s) Active Warfarin Sodium 5 MG Tablet 1 tablet Ora lly Once a day; Duration: 30 day(s) Active Aspir-81 81 MG Tablet Delayed Release 1 tablet Orally Once a day; Duration: 30 day(s) Active MiraLax (colon prep) 8.3 ounce ((238) grams mixed with Gatorade or Crystal Light orally begin at 5:00 p.m. the day before the procedure; Duration: 1 day 07/24/2018 Active Dulcolax (colon prep) 5 MG Tablet Delayed Release take at 3:00 p.m and 7:00p.m. Orally two tablets twice a day for one day; Duration: 1 day 07/24/2018 Active Immunizations Vaccine Route Administration Date Status Comme nts Influenza Unknown 01/12/2018 Administered Social History Tobacco Use: Social History Observation Description Date Details (start date - stop date) Never Smoker NA - NA Social History Drugs/Alcohol: Social Info Question Answer Notes Alcohol Screen Did you have a drink containing alcohol in the past year? No Points 0 Interpretation Negative Tobacco Use: Social Info Question Answer Notes Tobacco Use/Smoking Patient is a nonsmoker Additional Details Category Social Info Options Details Miscellaneous: Marital status: Occupation: unemployed Section Notes: Nonsmoker; no sig alcohol Problems Problem Type SNOMED Code ICD Code Onset Dates Problem Status W/U Status Risk Notes Problem Screening for malignant neoplasm of colon (827252395) Encounter for screening for malignant neoplasm of colon (Z12.11) Active confirmed Problem Gallstones (804987809) Gallstones (K80.20) Active confirmed Problem Right upper quadrant pain (983534099) RUQ pain (R10.11) Active confirmed Plan Of Treatment Future Test Test Name Order Date COLONOSCOPY 05/11/2018 Insurance Providers Payer Name Payer Address Payer Phone Subscriber Number Group Number Insured Name Patient Relationship to Insured Coverage Start Date Coverage End Date [facility] [address] [place] [address] [id number] KUNAL RYAN Self - patient is the insured Medical (General) History Medical History History ICD Code Denies [place],DM,CVA,Lung disease,renal dise ase Neg. 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 Andre before 2012 Surgical History Surgery Date(Month/Year) BTL Breast biopsy-benign Aortic valve replacement and ascending a irwin aneurysm repair 2012
== END 2025-02-09 14:41 | disposition home or self-care (01) ==
LOC: HO.HKA 13:34
PROVIDERS: PCP Family Medicine; Visit Provider Internal Medicine Nephrology
DX: N18.31 Chronic kidney disease, stage 3a (principal); I10 Essential (primary) hypertension
CPT/HCPCS: 99204

== ENCOUNTER → 2025-02-09 13:34 | Outpatient (BNVA) | payer OTHER, SELFPAY | PROVIDERS: PCP Family Medicine; Visit Provider Internal Medicine Nephrology | DX: I12.9 Hypertensive chronic kidney disease with stage 1 through stage 4 chronic kidney disease, or unspecified chronic kidney disease (principal); N18.31 Chronic kidney disease, stage 3a; Z79.899 Other long term (current) drug therapy | CPT/HCPCS: 99202 ==

== ENCOUNTER → 2025-02-12 09:33 | Outpatient (REF) | payer OTHER, SELFPAY ==
--- NOTE | 2025-02-12 09:36 | CA_ITS ---
Transthoracic Echocardiogram Patient (Last, First, Middle): Dyan Mart L Gender: F Date of : 1955 Age: 69 Procedure Date: 02/12/2025 Procedure Type: Transthoracic Echocardiogram Location: OP Height: 152.4 cm Weight: 58.97 kg BSA: 1.55 m2 Heart Rate: 44 bpm BP: 130 / 70 mmHg Mail Distribution Scheme Examiner: DINA Referring MD: Brody Barros MD Bioinformatics Research Technician: Trey Guerra MD Symptoms: Z95.2 - Presence of prosthetic heart valve Study Quality: Adequate ECG Rhythm: Bradycardia Conclusions: - 1. Normal LV ejection fraction 55-60% with impaired relaxation filling pattern 2. Normally functioning prosthetic aortic valve with mean gradient of 7 mm Hg with trivial aortic regurgitation 3. No gross pericardial effusion Findings Left Ventricle Normal left ventricular size, thickness, and systolic function. The visually estimated ejection fraction is between 55-60%. There is paradoxical septal motion consistent with post-operative status. Spectral Doppler is indicative of an impaired relaxation filling pattern. E/E prime ratio is between 8 and 15 consistent with indeterminate filling pressures. Right Ventricle Normal right ventricular cavity size. significantly reduced TAPSE which can be seen in patients after open heart surgery. Unclear significance. Atria Both atria are normal in size. Interatrial shunt cannot be excluded. Aortic Valve A mechanical prosthetic aortic valve is present. The prosthetic aortic valve appears to be functioning normally. The mean gradient is 7 mmHg. There is trace (trivial) aortic valve regurgitation. Mitral Valve There is mild anterior and posterior mitral leaflet thickening. There is trace mitral valve regurgitation. There is no mitral valve stenosis. Pulmonic Valve The pulmonic valve is likely normal. Tricuspid Valve Likely normal tricuspid valve structure and function. Tricuspid regurgitation envelope is inadequate for calculation of right ventricular systolic pressure. Normal right atrial pressure. Great Vessels All visible segments of the aorta are normal in size. The pulmonary artery was not well visualized. There is no dilatation of the ascending aorta measuring 3.20 cm. Venous The inferior vena cava is normal in size and collapses greater than 50% with inspiration. Pericardium/Pleural There is no evidence of pericardial effusion. Prior Study Comparison No prior study available for comparison. Measurements 2D Linear Measurements IVSd: 1.09 0.6-0.9/0.6-1.0 cm LVIDd: 4.23 3.9-5.3/4.2-5.9 cm LVIDd Index: 2.73 2.4-3.2/2.2-3.1 cm/m2 LVIDs: 2.78 2.0-3.6 cm LVPWd: 0.75 0.7-1.1 cm LA Diam: 3.60 2.7-3.8/3.0-4.0 cm LAIDs Index: 2.32 1.5-2.3 cm/m2 LV Mass: 154.11 67-162/88-224 g LV Mass Index: 99.43 43-95/49-115 g/m2 LVOT Diam: 2.20 3.0+(-)1.3 cm 2D Systolic Function EF 4C: 57.70 >55% EF 2C: 52.80 >55% EF BiP: 54.70 >55% Mitral Valve MV Pk E: 0.83 MV PK A: 0.77 MV Decel Time: 205.00 E/A: 1.10 E'Lateral: 7.18 E'Medial: 4.35 E/E' Med: 19.00 E/E' Lat: 11.50 PHT: 60.00 MVA PHT: 3.67 Decel Lamar: 4.04 Aortic Valve AoV Pk Ortiz: 1.89 AoV Mn Ortiz: 1.25 AoV VTI: 0.40 AoV Pk Grad: 14.00 Aov Mn Grad: 7.00 ISAMAR Cont.VTI: 1.59 AI Pk Ortiz: 1.81 AI Lamar: 28.57 LVOT LVOT Pk Ortiz: 0.67 LVOT Mn Ortiz: 0.48 LVOT VTI: 0.17 LVOT Pk Grad: 2.00 LVOT Mn Grad: 1.00 LVOT Diam: 2.20 LVOT Area: 3.80 Diastolic Function MV Pk E: 0.83 MV Pk A: 0.77 E/A: 1.10 E'Medial: 4.35 E/E' Med: 19.00 E' Laterial: 7.18 E/E' Lat: 11.50 Right Ventricle TAPSE (mm): 8.60 TVS' Ortiz: 7.20 Tricuspid Valve RA Press: 3.00 Great Vessels Aorta Sinus of Valsalva: 3.30 2.0-3.5 cm Ao Asc: 3.20 2.1-3.4 cm Ao Arch: 3.10 Pulmonary Veins Pulm Vein S/D 1.10 Pulmonary Valve PV Pk Ortiz: 0.78 Peak PV Grad: 2.00 TX Pk Ortiz: 1.77 Updated in Other Vendor System with Status of Final Trey Guerra MD electronically signed on 02/12/2025 11:00:44 AM with status of Final
== END ==
LOC: HO.CARD 09:33
PROVIDERS: PCP Family Medicine; Visit Provider Internal Medicine
DX: Z95.2 Presence of prosthetic heart valve (principal)
CPT/HCPCS: 93306

== ENCOUNTER → 2025-02-12 09:36 | Outpatient (BNV) | payer OTHER, SELFPAY | PROVIDERS: PCP Family Medicine; Visit Provider Internal Medicine Cardiovascular Disease | DX: Z95.2 Presence of prosthetic heart valve (principal) | CPT/HCPCS: 93306 ==

== ENCOUNTER 2025-02-14 08:17 | Outpatient (REF) | payer OTHER, SELFPAY ==
--- NOTE | ~2025-02-14 | US_ITS ---
CLINICAL HISTORY: I10 - Essential (primary) hypertension Ultrasound kidneys. COMPARISON: None provided. Technique: Real time sonographic imaging, including color-flow imaging, was performed by the extended day teacher. Multiple member service representative static images were saved for review. FINDINGS: Right kidney: There is loss of normal corticomedullary differentiation. Right renal simple cyst within the midportion measuring 1.3 x 1.0 x 1.2 cm. No hydronephrosis. Right kidney size: 10.4 x 5.1 x 5.7 cm Left kidney: Atrophic left kidney. Loss of normal corticomedullary differentiation. Left renal simple cyst of the upper pole measuring 2.6 x 2.1 x 2.2 cm. Left renal cyst of the mid/lower pole measuring 1.1 x 1.2 x 1.5 cm. No hydronephrosis. Left kidney size: 5.9 x 2.5 x 2.3 cm IMPRESSION: 1. No evidence of renal obstruction. 2. Atrophic left kidney. 3. Loss of corticomedullary differentiation bilaterally can be seen with medical renal disease. 4. Bilateral simple renal cysts measuring up to 2.6 cm on the left kidney. This document has been electronically signed by: Guicho Pierson MD on 02/14/2025 16:08:08
--- OUTSIDE RECORDS SUMMARY | 2025-02-14 08:26 | XMS_ITS | Encounter Summary ---
Author Organization [employer] Address [address] [facility] [address] 7t [place] [address] Care Team Providers Care Precast Worker Name Role Phone Dominique Alcaraz MD Primary Care Provider [phone] Martina Wesley PharmD Unavailable Refugio Huston MD Unavailable [phone] Chun Álvarez MD Unavailable [phone] Moses Dumont MD Unavailable Brody Barros MD Unavailable [phone] Encounter Details Date Type Department Care Team (Late st Contact Info) Description 05/01/2024 Orders Only [facility] [address] [place], [place] [address] Dominique Alcaraz MD 230 [place], [place] [phone] Type 2 diabetes mellitus with chronic kidney [...] Care Team (Late st Contact Info) Description 03/28/2025 1:30 PM EST Office Visit [facility]ULT DENTAL [address] [place] [address] Frandy Lopez 04/30/2025 11:00 AM EST Medication Management [facility] 230 [place] [address] Martina Wesley PharmD [address] [place] [address] documented as of this encounter Goals Goal Patient Goal Type Associated Problems Recent Progress Patient-Stated? Author Blood Pressure < 140/90 Blood Pressure 130/66(2024 10:35 AM EDT) No Martina Tiwari PharmD Hemoglobin A1c < 7 Result Component 6.9(09/22/202 5 12:00 PM EDT) No Martina Tiwari [...] EST) Protime 27.7(H) 11.1 - 13.5 sec [facility] 05/01/2024 1:32 PM EST 05/01/2024 1:34 PM EST us Generic External Data Provider LAB BLOOD ORDERAB LES Final Result Performing Organization Address City/State/[facility] Co de Phone Number [facility] [address] [place] [phone] * (ABNORMAL) ~PT, ~INR - ANTI COAG CLINIC (05/01/2024 1:32 PM EST) Prothrombin Time INR 2.3(H) 0.9 - 1.1 [facility] Comment:METER #: [id number] TERNATIONAL NORMALIZED RATIO (INR) REFERENCE RANGES Reference [...] Provider LAB BLOOD ORDERAB LES Final Result [facility] [address] [place] [address] [phone] documented in this encounter Visit Diagnoses [...] documented as of this encounter Care Teams Precast Worker Relationship Specialty Start Date End Date Dominique Alcaraz MD [address] [place] [address] PCP - General Family Medicine 12/20/12 Martina Wesley, PharmD [address] [place] [address] Pharmacist Internal Medicine 03/12/22 Refugio Huston MD [address] [place] [address] Nephrology 05/01/24 Chun Álvarez MD [address] [place] [address] Hematology and Oncology 05/01/24 Moses Dumont MD [address] [place] [address] Cardiology 05/01/24 01/04/25 Brody Barros MD [address] [place] [address] Cardiology 01/05/25 documented as of this encounter
--- OUTSIDE RECORDS SUMMARY | 2025-02-14 08:26 | XMS_ITS | Encounter Summary ---
Author Organization [employer] Address [address] [facility] [address] 7[address] [place] [address] Care Team Providers Care Packing And Stamping Machine Operator Name Role Phone Dominique Alcaraz MD Primary Care Provider + [phone] Martina Wesley PharmD Unavailable [phone] Refugio Huston MD Unavailable [phone] Chun Álvarez MD Unavailable [phone] Moses Dumont MD Unavailable [phone] Brody Barros MD Unavailable [phone] Encounter Details Date Type Department Care Team (Late st Contact Info) Description 05/04/2024 Abstract [facility]INE [address] [place] [address] Sunitha Singleton [place] Social History Tobacco Use [...] Description 03/28/2025 1:30 PM EST Office Visit [facility] ADULT DENTAL [address] [place] [address] Frandy Lopez 04/30/2025 11:00 AM EST Medication Management [facility] [address] [place] [address] Martina Wesley, PharmD [address] [place] [address] documented as of this encounter Goals Goal Patient Goal Type Associated Problems Recent Progress Patient-Stated? Author Blood Pressure < 140/90 Blood Pressure 130/66(2024 10:35 AM EDT) No Jamaris-Martina Jaffe, PharmD Hemoglobin A1c < 7 Result Component 6.9( 12:00 PM EDT) No JamarisMartina Levine, PharmD documented as of this encounter Procedures Procedure Name Priority Date/Time Associated Diagnosis Comments MAMMOGRAPHY Routine 05/04/2024 11:40 AM EST documented in this encounter Results * Mammography (05/04/2024 11:40 AM EST) HM [...] documented as of this encounter Care Teams Packing And Stamping Machine Operator Relationship Specialty Start Date End Date Dominique Alcaraz MD [address] [place] [address] PCP - General Family Medicine 12/20/12 Martina Wesley, BetsyD [address] [place] [address] Pharmacist Internal Medicine 03/12/22 Refugio Huston MD [address] [place] [address] Nephrology 05/01/24 Chun Álvarez MD 575 [place] [address] Hematology and Oncology 05/01/24 Moses Dumont MD [address] [place] [address] Cardiology 05/01/24 01/04/25 Brody Barros MD [address] [place] [address] Cardiology 01/05/25 documented as of this encounter
--- OUTSIDE RECORDS SUMMARY | 2025-02-14 08:26 | XMS_ITS | Encounter Summary ---
Author Organization [employer] Address [address] [facility] [address] 7[address] [place] [address] Care Team Providers Care Grain Operations Manager Name Role Phone Dominique Alcaraz MD Primary Care Provider Martina Wesley PharmD Unavailable Refugio Huston MD Unavailable [phone] Chun Álvarez MD Unavailable [phone] Moses Dumont MD Unavailable [phone] Brody Barros MD Unavailable [phone] Reason for Visit * Reason Comments Med Refill Encounter Details Date Type Department Care Team (Late st Contact Info) Description 03/17/2023 Refill [facility] [address] [place], [place] [phone] Dominique Alcaraz MD [address] [place], [place] [phone] Vitamin D deficiency; Stage 2 chronic kidney [...] Description 03/28/2025 1:30 PM EST Office Visit [facility] ADULT DENTAL [address] [place] [address] Frandy Lopez 04/30/2025 11:00 AM EST Medication Management [facility] [address] [place] [address] Martina Wesley, PharmD [address] [place] [address] documented as of this encounter Goals Goal [...] documented as of this encounter Care Teams Grain Operations Manager Relationship Specialty Start Date End Date Dominique Alcaraz MD [address] [place] [address] PCP - General Family Medicine 12/20/12 Martina Wesley, BetsyD [address] [place] [address] Pharmacist Internal Medicine 03/12/22 Refugio Huston MD [address] [place] [address] Nephrology 05/01/24 Chun Álvarez MD [address] [place] [address] Hematology and Oncology 05/01/24 Moses Dumont MD [address] [place] [address] Cardiology 05/01/24 01/04/25 Brody Barros MD [address] [place] [address] Cardiology 01/05/25 documented as of this encounter
--- OUTSIDE RECORDS SUMMARY | 2025-02-14 08:26 | XMS_ITS | Encounter Summary ---
Author Organization [employer] Address [address] [facility] 7t [place] [address] Care Team Providers Care Parking Enforcement Specialist Name Role Phone Dominique Alcaraz MD Primary Care Provider [phone] Martina Wesley PharmD Unavailable Refugio Huston MD Unavailable Chun Álvarez MD Unavailable [phone] Moses Dumont MD Unavailable [phone] Brody Barros MD Unavailable Encounter Details Date Type Department Care Team (Late st Contact Info) Description 10/30/2022 Abstract [facility]INE [address] [place] [address] Dominique Alcaraz MD [address] [place], [place] [phone] Social History Tobacco Use Types Packs/Day Years [...] Description 03/28/2025 1:30 PM EST Office Visit [facility] ADULT DENTAL [address] [place] [address] Frandy Lopez 04/30/2025 11:00 AM EST Medication Management [facility] [address] [place] [address] Martina Wesley PharmD [address] [place] [address] documented as of this encounter Goals Goal [...] documented as of this encounter Care Teams Parking Enforcement Specialist Relationship Specialty Start Date End Date Dominique Alcaraz MD [address] [place] [address] PCP - General Family Medicine 12/20/12 Martina Wesley, PharmD [address] [place] [address] Pharmacist Internal Medicine 03/12/22 Refugio Huston MD [address] [place] [address] Nephrology 05/01/24 Chun Álvarez MD 5 [place] [address] Hematology and Oncology 05/01/24 Moses Dumont MD [address] [place] [address] Cardiology 05/01/24 01/04/25 Brody Barros MD [address] [place] [address] Cardiology 01/05/25 documented as of this encounter
--- OUTSIDE RECORDS SUMMARY | 2025-02-14 08:26 | XMS_ITS | Encounter Summary ---
Author Organization [employer] Address [address] [facility] [address] 7[address] [place] [address] Care Team Providers Care Telephone Exchange Operator Name Role Phone Dominique Alcaraz MD Primary Care Provider [phone] Martina Wesley PharmD Unavailable Refugio Huston MD Unavailable Chun Álvarez MD Unavailable [phone] Moses Dumont MD Unavailable [phone] Brody Barros MD Unavailable Reason for Visit * Reason Comments Med Refill Encounter Details Date Type Department Care Team (Late st Contact Info) Description 08/18/2024 Refill [facility] [address] [place], [place] [phone] Martina Wesley, PharmD [address] [place], [place] [phone] Primary hypertension Social History Tobacco Use Types [...] Description 03/28/2025 1:30 PM EST Office Visit [facility] ADULT DENTAL [address] [place] [address] Frandy Lopez 04/30/2025 11:00 AM EST Medication Management [facility] [address] [place] [address] Martina Wesley PharmD [address] [place] [address] documented as of this encounter Goals Goal Patient Goal Type Associated Problems Recent Progress Patient-Stated? Author Blood Pressure < 140/90 Blood Pressure 130/66(2024 10:35 AM EDT) No Martina Tiwari, PharmKourtney Hemoglobin A1c < 7 Result Component 6.9( 12:00 PM EDT) No Martina Tiwari PharmD documented as of this encounter Visit Diagnoses Diagnosis Primary hypertension Unspecified essential hypertension documented in this encounter Additional Health Concerns Assessment Noted Time PHQ-9 Depression Total Score: 8 11/03/19 24 9:00 AM EDT documented as of this encounter Care Teams Telephone Exchange Operator Relationship Specialty Start Date End Date Dominique Alcaraz MD [address] [place] [address] PCP - General Family Medicine 12/20/12 Martina Wesley, BetsyD [address] [place] [address] Pharmacist Internal Medicine 03/12/22 [place] [address] [place] [phone] Nephrology 05/01/24 Chun Álvarez MD [address] [place] [address] Hematology and Oncology 05/01/24 Moses Dumont MD [address] [place] [address] Cardiology 05/01/24 01/04/25 Brody Barros MD [address] [place] [address] Cardiology 01/05/25 documented as of this encounter
--- OUTSIDE RECORDS SUMMARY | 2025-02-14 08:26 | XMS_ITS | Patient Health Record ---
Author Organization [facility] Address [address] [place] [address] Care Team Providers Care Air Reduction Equipment Operator Name Role Phone Dominique Alcaraz MD Primary Care Provider Bogdan Henriquez Unavailable [phone] Allergies Allergen (clinical drug ingredient) Drug/Non Drug [...] Problem Screening for malignant neoplasm of colon (597554529) Encounter for screening for malignant neoplasm of colon (Z12.11) Active confirmed Problem Gallstones (574673198) Gallstones (K80.20) Active confirmed Problem Right upper quadrant pain (869883164) RUQ pain (R10.11) Active confirmed Plan Of Treatment Future Test Test Name Order Date COLONOSCOPY 05/11/2018 Insurance Providers Payer Name Payer Address Payer Phone Subscriber Number Group Number Insured Name Patient Relationship to Insured Coverage Start Date Coverage End Date [facility] [address] [place] [address] [id number] KUNAL RYAN Self - patient is the insured Medical (General) History Medical History History ICD Code Denies [place],DM,CVA,Lung disease,renal dise ase Neg. 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 Andre before 2012 Surgical History Surgery Date(Month/Year) BTL Breast biopsy-benign Aortic valve replacement and ascending a irwin aneurysm repair 2012
--- OUTSIDE RECORDS SUMMARY | 2025-02-14 08:26 | XMS_ITS | Clinical Summary ---
Author Organization [employer] Address [address] [place] [address] Care Team Providers Care Inpatient Care Manager Rn Name Role Phone Dominique Alcaraz MD Primary Care Provider + [phone] Martina Wesley PharmD Unavailable Refugio Huston MD Unavailable [phone] Chun Álvarez MD Unavailable [phone] Brody Barros MD Unavailable [phone] Allergies Active Allergy Reactions Criticality Noted Date [...] be different from the original. Enrolled in [facility] DM and [facility] HTN clinic with Martina Wesley, BetsyD, [facility] [place] Dress Designer: Jaci Physician Neonatology Agency: [facility] Problem Noted Date Diagnosed Date Stage 3b chronic kidney disease (CMS/HCC) 2024 Overview (12/20/2024): Lab Results Component Value Date CREATININE 1.15 08/07/2024 CREATININE 0.85 07/30/2023 CREATININE 0.86 06/05/2022 EGFR 47 08/07/2024 EGFR >60 07/30/2023 EGFR >60 06/05/2022 MICROALBCREU 299.7 (H) 08/07/2024 MICROALBCREU 316.8 (H) 10/20/2023 -avoid nephrotoxic agnets -followed by electric meter tester helper Dr. Huston Cardiac risk counseling 12/08/2023 Overview [...] Cano last done 06/18/2022 -dental home is [facility] -Health care proxy 11/03/23 Assessment & Plan (11/20/2024 12:16 PM EDT): Assessment & Plan (11/03/2023 9:32 AM EDT): -next physical exam due after 11/05/2023 -eye care facilitated by Dr. Cano last done 06/18/2022 -dental home is [facility] -Health care proxy 11/03/23 Assessment & Plan (11/04/2022 9:18 AM EDT): -next physical exam due after 11/05/2023 -eye care facilitated by Dr. Cano last done 05/2022 -dental home is [facility] Low back pain without sciatica 11/04/2022 Overview (11/04/2022): PT referral done 11/04/2022. Assessment & Plan (11/04/2022 9:23 AM EDT): PT referral done 11/04/2022. Pre-op evaluation 08/05/2022 Overview (11/03/2023): For cataract surgery at [facility] with Dr. Gusman. Pt with mechanical valve [...] surgery on 11/15/23. After this appointment the daycare director will be able to determine what medications should or can be held. Assessment & Plan (11/03/2023 9:26 AM EDT): For cataract surgery at [facility] with Dr. Gusman. Pt with mechanical valve [...] from cardiac surgery is dated 12/08/12. Her daycare director is Dr. Moses Dumont, note from 07/2024 reviewed -PT NEEDS ANTIBIOTIC PROPHLAXIS PRIOR TO DENTAL WORK - RX AMOXICILLIN 2G PRIOR TO DENTAL WORK -Seen by Dr. Dumont 07/2024 recommending follow up 1 year -note from Patient followed at [facility] with Dr. John Dumont DO. [...] from cardiac surgery is dated 12/08/12. Her daycare director is Dr. Moses Dumont, last visit 05/2018 [...] from cardiac surgery is dated 12/08/12. Her daycare director is Dr. 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 Last note dated 10/03/2013. Follow up annually for mammo and office visit. - [facility] no longer accepting pt's insurance so now followed at [facility] q [address] Pryor. -Last [...] in 2005 - Previously followed by the [facility]. Last note dated 10/03/2013. Follow up annually for mammo and office visit. - [facility] no longer accepting pt's insurance so now followed at [facility] q [address] Pryor. -Last seen by oncology on 08/25/2019. 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 Last note dated 10/03/2013. Follow up annually for mammo and office visit. - [facility] no longer accepting pt's insurance so now followed at [facility] q [address] Pryor. -Last seen by oncology on 08/25/2019. -Recent Mammo 04/11/21 BI-RADS 2 benign Atrial fibrillation (CMS/HCC) 03/26/2013 Overview (01/05/2025): - continue [facility] anticoagulation INR goal 2.5-3.5 due to heart valve repair -Previously followed at [facility] with Dr. John Dumont DO. Note from 08/24/24 reviewed. -note from Followed by Dr. Brody Barros of [facility]. Note from 01/05/25 reviewed, echo ordered Assessment & Plan (11/20/2024 12:16 PM EDT): Assessment & Plan (03/05/2022 12:04 PM EST): - continue [facility] anticoagulation INR goal 2.5-3.5 due [...] daily, prescribed by nephrology *Last seen in [facility] clinic 12/27/24; [facility] a few times/week and post prandial only. [facility] encouraged patient to also [facility] for fasting [...] 80mg daily -ordered lipid panel 11/03/23 -offered Hernando-3s, bu wants to trial lifestyle changes. Will [...] DEPARTMENT Provider, Generic External Data 11/30/[address] [address] Nelda Banks RN Paperwork/Forms 11/23/2024 Refill [facility] [address] [place] [address] [phone] Dominique Alcaraz MD Osteopenia of multiple sites 11/20/2024 11:15 AM EDT Office Visit [address] [address] Dominique Alcaraz MD Hypertension, unspecified type (Primary Dx); Hyperlipidemia, unspecified hyperlipidemia type; History of aortic valve repair; Paroxysmal atrial fibrillation ([facility]); Type 2 diabetes mellitus with chronic kidney disease, without long-term current use of insulin, unspecified CKD stage (CMS/HCC); Stage 3a chronic kidney disease (CMS/HCC); Atypical ductal hyperplasia of breast; Other specified health status; Encounter for immunization 11/20/2024 Travel 11/17/2024 Telephone [facility] [address] [place] [address] Ginna Jaimes [place] from Last 3 Months Immunizations Immunization [...] antigen) 11/17/2011 [facility] SARS-CoV-2 Vaccination 05/15/2020 Novel [id number] 11/19/2015 Pfizer Covid-19 Vaccine 12+ 01/31/2021 Pfizer [...] your housing situation today? I have jase sing 11/20/[address] you li [...] Description 03/28/2025 1:30 PM EST Office Visit [facility] CH[facility] ADULT DENTAL [address] [place] [address] Frandy Lopez 04/30/2025 11:00 AM EST Medication Management [facility] [address] [place], [place] [phone] Martina Wesley, PharmD [address] [place], [place] [phone] Health Maintenance Due Date Last Done Comments [...] 11/20/2024, 01/04/2014, 10/11/2006 Zoster Vaccines Completed 06/05/2021, 042, 04/03/2021, Additional history exists Pneumococcal Vaccine: 50+ [...] Pressure 130/66(2024 10:35 AM EDT) No Martina Wesley, Irma Hemoglobin A1c < 7 Result Component 6.9( 12:00 PM EDT) No Martina Wesley PharmD Help patients manage their type 2 diabetes Care Plan Help patients manage their type 2 diabetes No Geneva Gerard Weekly blood pressure task Care Plan Weekly [...] CKD stage (CMS/HCC) LIPID PANEL, STANDARD Routine 08/30/2024 8:13 AM [...] 1:10 PM EST) Only the most recent of4 resultswithin the time period is included. Protime 32.6(H) 11.1 - 13.5 sec [facility] 02/02/2025 1:10 PM EST 02/02/2025 1:18 PM EST us Generic External Data Provider LAB BLOOD ORDERAB LES Final Result Performing Organization Address [facility] Co de Phone Number [facility] [address] [place] [phone] * (ABNORMAL) ~PT, ~INR - ANTI COAG CLINIC (02/02/2025 1:10 PM EST) Only the most recent of4 resultswithin the time period is included. Prothrombin Time INR 2.7(H) 0.9 - 1.1 [facility] Comment:METER #: [id number] TERNATIONAL NORMALIZED RATIO (INR) REFERENCE RANGES Reference [...] 1:10 PM EST 02/02/2025 1:18 PM EST Generic External Data Provider LAB BLOOD ORDERAB LES Final Result Performing Organization Address [facility] Co de Phone Number [facility] [address] [place] [phone] * (ABNORMAL) POCT glycosylated hemoglobin (Hgb A1c) (11/20/2024 12:00 PM EDT) Pathologist [facility] Hemoglobin A1C 6.9(A) 4.0 - 5.7 % QC Media Lot # [id number] Lot# Expiration Date [id number] Blood Capillary blood specimen / Unknown 11/20/2024 12:00 PM EDT Dominique Alcaraz MD POINT OF CARE TEST ENTER/E DIT ORDERABLES Final Result * POCT glucose manually resulted (11/20/2024 11:59 AM EDT) Pathologist [facility] Glucose Blood, POC 108 60 - 200 mg/dL [employer] Lot # [id number] Lot# Expiration Date [id number] Blood Capillary blood specimen / Unknown 11/20/2024 11:59 AM EDT Dominique Alcaraz MD POINT OF CARE TEST ENTER/E DIT ORDERABLES Final Result * (ABNORMAL) Lipid Panel, Standard (08/30/2024 8:13 AM EDT) Pathologist [facility] Triglycerides 270(H) <150 mg/dL [facility] Comment:Desirable Triglyceri de: less than 150 mg/dLBorderline High Triglyceride 150-199 mg/dLHigh Triglyceride: 200-499 mg/dLVery High Triglyceride: greater than or equal to 5OO mg/dL Cholesterol 128 <200 mg/dL [facility] Comment:Desirable Cholestero l: less than 200 mg/dLBorderline High Cholesterol: 200-239 mg/dLHigh Cholesterol: greater than 239 mg/dL LDL Cholesterol Calculated 41 <100 mg/dL [facility] Comment:Desirable LDL: less than 100 mg/dLNear Optimal/Above Optimal LDL: 110- 129 mg/dLBorderline High LDL: 130-159 mg/dLHigh LDL: 160-189 mg/dLVery High LDL: greater than or equal to 190 mg/dL HDL Cholesterol 33(L) >40 mg/dL [facility] Comment:Desirable HDL: great er than 40 mg/dL Note: This HDL assay may give artificially low results in patients with liver disease. Blood Venous blood specimen / Unknown 08/30/2024 8:13 AM EDT 08/30/2024 11:51 AM EDT Dominique Alcaraz MD LAB BLOOD ORDERABLES Final Result Performing Organization Address [facility] Co de Phone Number [facility] [address] [place] [phone] * Hepatitis C Antibody with Reflex to HCV, RNA, Quantitative, Real-Time PCR (08/07/2024 8:03 AM EDT) Hepatitis C Antibody Nonreactive Nonreactive [facility] Comment:Antibodies to HCV no t detected; does not exclude early acuteHCV infection. Blood Venous blood specimen / Unknown 08/07/2024 8:03 AM EDT 08/07/2024 11:11 AM EDT Dominique Alcaraz MD LAB BLOOD ORDERABLES Final Result Performing Organization Address [facility] de Phone Number [facility] [address] [place] [phone] * Mammography (05/04/2024 11:40 AM EST) Mammogram BIRADS 2 Normal, Abnormal, BIRADS 1 , BIRADS 2 Comment:follow up one year Anatomical Region Laterality Modality Other Historical [facility] Final Result * Diabetes Eye Exam (06/18/2022) Eye Exam Normal Normal Historical [facility] Final Result * Colonoscopy (09/03/2018 [...] Patient has chronic kidney disease 02/01/2025 Insurance [facility] OPTIONS (O D-SNP) [facility] Advance Directives Documents on File Type Date Recorded 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
--- OUTSIDE RECORDS SUMMARY | 2025-02-14 08:26 | XMS_ITS | Encounter Summary ---
Author Organization [employer] Address [address] [place] [address] Care Team Providers Care Developer Prover Upholstering Name Role Phone Dominique Alcaraz MD Primary Care Provider Martina Wesley PharmD Unavailable Refugio Huston MD Unavailable [phone] Chun Álvarez MD Unavailable [phone] Moses Dumont MD Unavailable [phone] Brody Barros MD Unavailable Reason for Visit * Reason Comments Med Refill Encounter Details Date Type Department Care Team (Late st Contact Info) Description 05/07/2023 Refill [facility] [address] [place], [place] [phone] Dominique Alcaraz MD [address] [place], [place] [phone] Type 2 diabetes mellitus without complication, 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 terminal operations supervisor insulin use ([facility]) Social History Tobacco Use Types Packs/Day Years [...] Description 03/28/2025 1:30 PM EST Office Visit [facility] ADULT DENTAL [address] [place] [address] Frandy Lopez 04/30/2025 11:00 AM EST Medication Management [facility] [address] [place] [address] Martina Wesley PharmD [address] [place] [address] documented as of this encounter Goals Goal [...] 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 terminal operations supervisor insulin use documented in this encounter Additional Health Concerns Assessment Noted Time PHQ-9 Depression Total Score: 0 07/09/19 23 3:56 PM EDT documented as of this encounter Care Teams Developer Prover Upholstering Relationship Specialty Start Date End Date Dominique Alcaraz MD [address] [place] [address] PCP - General Family Medicine 12/20/12 Martina Wesley PharmD [address] [place] [address] Pharmacist Internal Medicine 03/12/22 Refugio Huston MD [address] [place] [phone] Nephrology 05/01/24 Chun Álvarez MD [address] [place] [address] Hematology and Oncology 05/01/24 Moses Dumont MD [address] [place] [address] Cardiology 05/01/24 01/04/25 Brody Barros MD [address] [place] [address] Cardiology 01/05/25 documented as of this encounter
--- OUTSIDE RECORDS SUMMARY | 2025-02-14 08:26 | XMS_ITS | Encounter Summary ---
Author Organization [employer] Address [address] [facility] [address] [place] [address] Care Team Providers Care High Pressure Operator Name Role Phone Dominique Alcaraz MD Primary Care Provider + [phone] Martina Wesley PharmD Unavailable [phone] Refugio Huston MD Unavailable [phone] Chun Álvarez MD Unavailable [phone] Moses Dumont MD Unavailable [phone] Brody Barros MD Unavailable [phone] Encounter Details Date Type Department Care Team (Late st Contact Info) Description 12/08/2023 Orders Only [facility] [address] [place], [place] [phone] Provider, MD Christiano Social History Tobacco Use [...] Description 03/28/2025 1:30 PM EST Office Visit [facility] CHC ADULT DENTAL [address] [place] [address] Frandy Lopez 04/30/2025 11:00 AM EST Medication Management [facility] MEDICINE [address] [place] [address] JamarisMartina Larsen, PharmD [address] [place] [address] documented as of this encounter Goals Goal Patient Goal Type Associated Problems Recent Progress Patient-Stated? Author Blood Pressure < 140/90 Blood Pressure 130/66(2024 10:35 AM EDT) No Jamaris-Helen mcmahan, Martina, PharmD Hemoglobin A1c < 7 Result Component 6.9( 12:00 PM EDT) No Jamaris-Poonaml Maria Isabel mcmahansa, PharmD documented as of this encounter Procedures [...] documented as of this encounter Care Teams High Pressure Operator Relationship Specialty Start Date End Date Dominique Alcaraz MD [address] [place] [address] PCP - General Family Medicine 12/20/12 Martina Wesley, BetsyD [address] [place] [address] Pharmacist Internal Medicine 03/12/22 Refugio Huston MD [address] [place] [address] Nephrology 05/01/24 Chun Álvarez MD [address] [place] [address] Hematology and Oncology 05/01/24 Moses Dumont MD [address] [place] [address] Cardiology 05/01/24 01/04/25 Brody Barros MD [address] [place] [address] Cardiology 01/05/25 documented as of this encounter
--- OUTSIDE RECORDS SUMMARY | 2025-02-14 08:26 | XMS_ITS | Encounter Summary ---
Author Organization [employer] Address [address] [place] [address] Care Team Providers Care Patrol Officer Name Role Phone Dominique Alcaraz MD Primary Care Provider + [phone] Martina Wesley PharmD Unavailable Refugio Huston MD Unavailable [phone] Chun Álvarez MD Unavailable [phone] Moses Dumont MD Unavailable [phone] Brody Barros MD Unavailable [phone] Reason for Visit * Reason Onset Date Comments Pre op 09/23/2023 Encounter Details Date Type Department Care Team (Late st Contact Info) Description 09/23/2023 Telephone [facility] [address] [place], [place] [phone] Dominique Alcaraz MD [address] [place], [place] [phone] Pre op Social History Tobacco Use Types [...] Surgeon's name: mercedes mohan Facility name: [address], [place] [address] Surgeon's office number: [phone] Surgeon's office fax number: [phone] Contact name (person you spoke with): [place] Last office note from surgeon requested: No * Telephone Encounter - Bharti Fregoso - 09/23/2023 12:23 PM EDT Date of Surgery: right eye 11/15/23 and left eye 11/28 Surgical procedure being done: cataract surgery both eyes Type of anesthesia: local anesthesia Lab needed: No EKG: No Surgeon's name: [facility] name: [address], [place] [address] Surgeon's office number: [phone] Surgeon's office fax number: [phone] Contact name (person you spoke with): [place] Last office note from surgeon requested: No documented in this encounter Plan of Treatment Upcoming Encounters Date Type Department Care Team (Late st Contact Info) Description 03/28/2025 1:30 PM EST Office Visit [facility] AD[facility] [address] [place] [address] Frandy Lopez 04/30/2025 11:00 AM EST Medication Management [facility] [address] [place] [address] Martina Wesley, PharmD [address] [place] [address] documented as of this encounter Goals Goal [...] documented as of this encounter Care Teams Patrol Officer Relationship Specialty Start Date End Date Dominique Alcaraz MD [address] [place] [address] PCP - General Family Medicine 12/20/12 Martina Wesley, PharmD [address] [place] [address] Pharmacist Internal Medicine 03/12/22 Refugio Huston MD [address] [place] [address] Nephrology 05/01/24 Chun Álvarez MD [address] [place] [address] Hematology and Oncology 05/01/24 Moses Dumont MD [address] [place] [address] Cardiology 05/01/24 01/04/25 Brody Barros MD [address] [place] [address] Cardiology 01/05/25 documented as of this encounter
--- OUTSIDE RECORDS SUMMARY | 2025-02-14 08:26 | XMS_ITS | Encounter Summary ---
Author Organization [employer] Address [address] [place] [address] Care Team Providers Care Destaticizer Feeder Name Role Phone Dominique Alcaraz MD Primary Care Provider [phone] Martina Wesley PharmD Unavailable Refugio Huston MD Unavailable Chun Álvarez MD Unavailable [phone] Moses Dumont MD Unavailable [phone] Brody Barros MD Unavailable Reason for Visit * Reason Comments Med Refill Encounter Details Date Type Department Care Team (Late st Contact Info) Description 08/14/2024 Refill [facility] MED[facility] [address] [place], [place] [phone] Martina Wesley, PharmD [address] [place], [place] [phone] Primary hypertension Social History Tobacco Use Types [...] Description 03/28/2025 1:30 PM EST Office Visit [facility] ADULT DENTAL [address] [facility] [place] [address] Frandy Lopez 04/30/2025 11:00 AM EST Medication Management [facility] [address] [place] [address] Martina Wesley PharmD [address] [place], [place] [phone] documented as of this encounter Goals Goal [...] documented as of this encounter Care Teams Destaticizer Feeder Relationship Specialty Start Date End Date Dominique Alcaraz MD [address] [place] [address] PCP - General Family Medicine 12/20/12 Martina Wesley, BetsyD [address] [place] [address] Pharmacist Internal Medicine 03/12/22 Refugio Huston MD [address] [place] [address] Nephrology 05/01/24 Chun Álvarez MD [address] [place] [address] Hematology and Oncology 05/01/24 Moses Dumont MD [address] [place] [address] Cardiology 05/01/24 01/04/25 Brody Barros MD [address] [place] [address] Cardiology 01/05/25 documented as of this encounter
== END 2025-02-14 08:18 | disposition home or self-care (01) ==
LOC: HO.US 08:17
PROVIDERS: PCP Family Medicine; Visit Provider Internal Medicine Nephrology
DX: I12.9 Hypertensive chronic kidney disease with stage 1 through stage 4 chronic kidney disease, or unspecified chronic kidney disease (principal); N18.31 Chronic kidney disease, stage 3a
CPT/HCPCS: 76775

== ENCOUNTER → 2025-02-14 08:19 | Outpatient (BNV) | payer OTHER, SELFPAY | PROVIDERS: PCP Family Medicine; Visit Provider Radiology Diagnostic Radiology | DX: N26.1 Atrophy of kidney (terminal) (principal); N28.1 Cyst of kidney, acquired | CPT/HCPCS: 76775 ==